=== PATIENT | male | born 1950 | race Caucasian/White ===

== ENCOUNTER 2016-09-11 14:05 | Inpatient (IN) | payer OTHER, MEDICARE ==
[~2016-09-11] VITALS: Ht 160 cm; Wt 85.9 kg
[~2016-09-11 14:05] MED LIST: METFORMIN PO; PENICILLIN PO
[2016-09-11] MEDS ORDERED: CLON-379 PO (16:34)
[2016-09-11] MEDS ORDERED: FELO10TA PO (16:35)
[2016-09-11] MEDS ORDERED: METF850T PO (16:35)
[2016-09-11] MEDS ORDERED: LOSA50TA6 PO (16:36)
[2016-09-11] MEDS ORDERED: ASPI-664 PO (16:36)
[2016-09-11] MEDS ORDERED: ATOR20TA38 PO (16:37)
[2016-09-11] MEDS ORDERED: FOLI-49 PO (16:37)
--- NOTE | 2016-09-11 16:40 | RADRPT ---
PROCEDURE: CT Brain without contrast. CLINICAL INDICATION: Headache. TECHNIQUE: A CT of the brain was performed on a multi-slice CT scanner utilizing axial sections fr om the skull base through the vertex without contrast. Coronal and sagittal reconstructed images wer e provided. One or more of the following does reduction techniques were used: Automated exposure c ontrol; adjustment of the mA and/or kV according to patient size; use of the aorta of reconstruction technique. Images were reviewed on a high-resolution PACS workstation. Exam DLP equals 634.23 mGy- cm. The CTDI equals 38.54 mGy COMPARISON: CT brain 06/14/2013 FINDINGS: Mild diffuse cerebral and cerebellar atrophy is present. There is a new 4.0 x 2.9 x 2.6 cm area of d ecreased attenuation in the right occipital lobe most consistent with subacute infarct. There is no definite mass effect. There are mild deep white matter patchy hypodensities which are nonspecific, but typically seen in small vessel chronic ischemic disease. there is a coarse calcification arisin g from the inner table of the left frontal bone, stable compared to prior study. A small left lacun ar infarct is unchanged. The density of the brain is otherwise normal and the guerra/white matter dif ferentiation is well preserved. The osseous structures and visualized paranasal sinuses are unremar kable. Vascular calcifications are identified. IMPRESSION: 1. New 4.0 cm area of decreased attenuation in the right posterior occipital lobe without definitiv e mass effect most consistent with subacute or chronic infarct. Recommend further evaluation with M RI of the brain as clinically indicated, particularly if this is an unexpected finding. 2. Otherwise stable CT appearance of the brain compared to 06/14/2013 without evidence of acute int racranial pathology. There is stable mild atrophy in deep white matter microangiopathic ischemic ch anges. 3. Chronic left lacunar infarct is stable. 4. 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 RPTAT: KK .Lazaro Zayas MD, MD Date Time Electronically viewed and signed by .Lazaro Zayas MD, MD on 09/11/2016 16:40 .B/
[2016-09-11] MEDS ORDERED: SOD CHLORIDE 0.9% 500 ML IV STA (16:53)
[2016-09-11] MEDS ORDERED: ASPIRIN 81 MG TAB PO ONE (17:00)
[2016-09-11 17:12] LABS: ADD SCAN DIFF NO
[2016-09-11 17:15] LABS: ABNORMAL IP MESSAGE 1; BASOPHIL # 0.1 10^3/ul (0.0-0.1); BASOPHILS % 1.3 % (0.0-2.0); EOSINOPHILS # 0.3 10^3/ul (0.0-0.5); EOSINOPHILS % 3.7 % (0.0-7.0); HEMATOCRIT 27.5 % (42.0-52.0); HEMOGLOBIN 7.7 g/dl (14.0-18.0); LYMPHOCYTES # 1.9 10^3/ul (0.8-2.9); MEAN CORPUSCULAR HEMOGLOBIN 19.5 pg (29.0-33.0); MEAN CORPUSCULAR VOLUME 69.6 fl (82.0-101.0); MEAN PLATELET VOLUME 10.2 fl (7.4-10.4); MONOCYTE # 0.6 10^3/ul (0.3-0.9); MONOCYTES % 8.6 % (0.0-11.0); NEUTROPHIL # 4.2 10^3/ul (1.6-7.5); NEUTROPHILS % 59.1 % (39.0-77.0); PLATELET COUNT 343 10^3/UL (140-415); RED BLOOD COUNT 3.95 10^6/ul (4.70-6.10); RED CELL DISTRIBUTION WIDTH 24.3 % (11.5-14.5); WHITE BLOOD COUNT 7.1 10^3/ul (4.8-10.8)
--- NOTE | 2016-09-11 17:22 | RADRPT ---
PROCEDURE: XR Chest. CLINICAL INDICATION: Chest and abdomen pain. TECHNIQUE: Single frontal view. COMPARISON: 06/14/2013. FINDINGS: There is mild atelectasis at the right lung base. The lungs are otherwise clear. The heart size is normal. There is no pleural effusion. There is no pneumothorax. IMPRESSION: 1. Mild right basilar atelectasis. 2. Otherwise normal chest x-ray. RPTAT: QQ .Neil Mcbride MD, MD Date Time Electronically viewed and signed by .Neil Mcbride MD, on 09/11/2016 17:22 .R/
[2016-09-11 17:26] VITALS: TEMP 98.1
[2016-09-11 17:39] LABS: CHLORIDE 109 mmol/L (97-110)
[2016-09-11 17:40] LABS: SODIUM 142 mmol/L (135-144)
[2016-09-11 17:42] LABS: ALANINE AMINOTRANSFERASE 18 IU/L (13-69); ALBUMIN/GLOBULIN RATIO 1.33; ALKALINE PHOSPHATASE 71 IU/L (42-121); ASPARTATE AMINO TRANSFERASE 38 IU/L (15-46); BILIRUBIN,INDIRECT 0.2 mg/dl (0-1.1); BILIRUBIN,TOTAL 0.2 mg/dl (0.2-1.3); BLOOD UREA NITROGEN 17 mg/dl (7-20); CARBON DIOXIDE 20 mmol/L (21-31); CREATININE 0.79 mg/dl (0.61-1.24); GLUCOSE 114 mg/dl (70-220)
[2016-09-11 17:43] LABS: CALCIUM 9.2 mg/dl (8.4-10.2)
--- NOTE | 2016-09-11 17:43 | ERA ---
ER Documentation Chief Complaint Date/Time DATE: 09/11/16 TIME: 17:35 Chief Complaint DIZZINESS AND MORE CONFUSED, NOT SEEING WELL. HX OF ANEMIA, NO TRAUMA HPI 58-year-old man brought in by family members for complaints of left visual field deficit 2 weeks. He has had difficulty seeing his food placed in front of him and has had generalized weakness and mild confusion 2 weeks. He states prior to 2 weeks ago his vision was almost perfect although about 2 weeks ago during the day he had sudden onset of visual loss. Patient denies headache, no fevers or chills, no chest pain or shortness of breath, no weakness in his arms or legs, no gait ataxia. Patient states with onset of symptoms he was seen and evaluated at another emergency department for complaints of generalized weakness and he was found to be anemic so he was given PRBC IV transfusion and discharge. ROS All systems reviewed and are negative except as per history of present illness. Medications Home Meds Reported Medications Folic Acid* (Folic Acid*) 1 Mg Tablet, 1 MG PO DAILY, TAB 09/11/16 Atorvastatin Calcium* (Atorvastatin Calcium*) 20 Mg Tablet, 20 MG PO QHS, #30 TAB 09/11/16 Losartan Potassium* (Losartan Potassium*) 50 Mg Tablet, 50 MG PO DAILY, TAB 09/11/16 Aspirin* (Aspirin* EC) 81 Mg Tablet.dr, 81 MG PO DAILY, TAB 09/11/16 Metformin Hcl* (Metformin Hcl*) 850 Mg Tablet, 850 MG PO TID, #90 TAB 09/11/16 Felodipine* (Felodipine*) 10 Mg Tab.sr.24h, 10 MG PO DAILY, TAB.SA 09/11/16 Clonidine Hcl* (Clonidine Hcl*) 0.1 Mg Tab, 0.1 MG PO QHS, TAB 09/11/16 Discontinued Reported Medications [Penicillin] No Conflict Check, [id number] U PO DAILY, 0 Refills 06/14/13 [Metformin] No Conflict Check, 850 MG PO BID, 0 Refills 06/14/13 Allergies Allergies: Coded Allergies: No Known Allergy (Unverified , 09/11/16) PMhx/Soc Hypertension and diabetes mellitus, anemia History of Surgery: No Anesthesia Reaction: No Hx Neurological Disorder: Yes (Stroke) Hx Respiratory Disorders: No Hx Cardiac Disorders: No Hx Psychiatric Problems: No Hx Miscellaneous Medical Probl: No Hx Alcohol Use: No Hx Substance Use: No Hx Tobacco Use: No Smoking Status: Former smoker FmHx Family History: No diabetes Physical Exam Vitals Vital Signs Date Time Temp Pulse Resp B/P Pulse Ox O2 Delivery O2 Flow Rate FiO2 09/11/16 17:47 60 23 179/79 100 09/11/16 17:26 98.1 58 23 177/70 100 Room Air 09/11/16 16:38 98.1 58 23 177/70 100 Room Air 09/11/16 14:30 98.6 70 21 202/81 100 Physical Exam GENERAL: Well-developed, well-nourished, well-hydrated, in no apparent distress , looks nontoxic in appearance HEENT: Moist mucous membranes, pink conjunctiva, no cervical spine tenderness or step-off deformities, no goiter, no jaundice or icterus, extraocular movements intact without pain. No submandibular induration, and no pharyngeal erythema NEURO: Visual acuity was tested and OS/OD less than 20/200, no pronator drift, alert and oriented 3, cranial nerves II through XII intact bilaterally, pupils equal round reactive to light, no focal deficits or facial asymmetry, sensation intact distally Strength 5/5 in upper and lower extremities bilaterally CARDIAC: Regular rate and rhythm, no murmurs rubs or gallops LUNGS: Clear bilaterally no wheezing crackles or stridor ABDOMEN: Soft nontender, no guarding, no rigidity, no rebound, no psoas sign no obturator sign. Normoactive bowel sounds SKIN: Warm and dry to touch, no abrasions, contusions, or hematomas, no lacerations, no ecchymosis, no target lesions, and without ulcers EXTREMITIES: No clubbing cyanosis or edema, calves are bilaterally symmetrical, no Homans sign, no popliteal cord sign. Distal pulses equal and bilateral PSYCH: Normal affect without agitation or irritability Result Diagram: 09/11/16 1705 09/11/16 1705 Results 24 hrs Laboratory Tests Test 09/11/16 17:05 Alanine Aminotransferase (ALT/SGPT) 18IU/L Albumin 4.0g/dl Albumin/Globulin Ratio 1.33 Alkaline Phosphatase 71IU/L Anion Gap 19 Aspartate Amino Transf (AST/SGOT) 38IU/L Basophils # 0.110^3/ul Basophils % 1.3% Blood Urea Nitrogen 17mg/dl Calcium Level 9.2mg/dl Carbon Dioxide Level 20mmol/L Chloride Level 109mmol/L Creatinine 0.79mg/dl Differential Comment AUTO w/SCAN Direct Bilirubin 0.00mg/dl Eosinophils # 0.310^3/ul Eosinophils % 3.7% Globulin 3.00g/dl Glucose Level 114mg/dl Hematocrit 27.5% Hemoglobin 7.7g/dl Indirect Bilirubin 0.2mg/dl Lipase 166U/L Lymphocytes # 1.910^3/ul Lymphocytes % 27.0% Mean Corpuscular Hemoglobin 19.5pg Mean Corpuscular Hemoglobin Concent 28.0g/dl Mean Corpuscular Volume 69.6fl Mean Platelet Volume 10.2fl Monocytes # 0.610^3/ul Monocytes % 8.6% Neutrophils # 4.210^3/ul Neutrophils % 59.1% Nucleated Red Blood Cells # 0.010^3/ul Nucleated Red Blood Cells % 0.0/100WBC Platelet Count 72895^3/UL Platelet Estimate PLT APPEAR ADEQUATE Potassium Level 5.6mmol/L Red Blood Count 3.9510^6/ul Red Cell Distribution Width 24.3% Sodium Level 142mmol/L Total Bilirubin 0.2mg/dl Total Protein 7.0g/dl Troponin I < 0.012ng/ml White Blood Count 7.110^3/ul Current Medications Medications (Trade) Dose Ordered Sig/Bianca Route PRN Reason Start Time Stop Time Status Last Admin Dose Admin Sodium Chloride (NS) 500 ml @ 500 mls/hr Q1H STAT IV 09/11/16 16:53 09/11/16 17:52 DC 09/11/16 17:37 Aspirin (Aspirin) 162 mg ONCE ONCE PO 09/11/16 17:00 09/11/16 17:01 DC 09/11/16 17:37 Procedures/MDM Blood sugar was checked and was normal. CT scan of the brain was performed revealing a 4 cm subacute infarct in the right occipital lobe consistent with his new visual field deficit. Please refer to radiologist dictation for full report. I administered 1 L normal saline intravenously and aspirin 162 mg p.o. for neuro protective measures. Chest X-ray 1V Interpreted by me: Soft Tissue: No acute abnormalities Bones: No acute abnormalities Mediastinum/Cardiac Silhouette/Lungs: No acute abnormalities EKG performed, read by me revealed a normal sinus rhythm at 60 bpm, normal axis , narrow QRS complex, no concerning ST elevations or depressions noted. CBC revealed anemia with a hemoglobin of 7.7, electrolytes remarkable for dehydration and mild hyperkalemia, liver function tests normal, troponin was negative. Patient will be admitted to telemetry setting for continued medical management and neurology consultation. 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
[2016-09-11 17:56] LABS: PLATELET ESTIMATE PLT APPEAR ADEQUATE
[2016-09-11 18:20] LABS: TROPONIN-I < 0.012 ng/ml (0.00-0.12)
[2016-09-11] MEDS ORDERED: BISACODYL (EC) 5 MG TAB PO PRN (18:30)
[2016-09-11] MEDS ORDERED: MAGNESIUM HYDROXIDE 30ML CUP PO PRN (18:30)
[2016-09-11] MEDS ORDERED: NACL 0.9% 3 ML SYG IV SCH (18:30)
[2016-09-11] MEDS ORDERED: LORAZEPAM 2 MG INJ IV PRN (18:30)
[2016-09-11] MEDS ORDERED: ONDANSETRON 4 MG INJ IV PRN (18:30)
[2016-09-11] MEDS ORDERED: NA POLYST SULFON 15 GM/60 ML BTL PO ONE (19:00)
[2016-09-11 19:17] LABS: IRON 20 ug/dl (35-150)
--- NOTE | 2016-09-11 19:19 | RADRPT ---
PROCEDURE: Carotid ultrasound CLINICAL INDICATION: Stroke, carotid bruits TECHNIQUE: Jeffrey scale, color doppler, spectral doppler ultrasound of the bilateral carotid and salima tebral arteries. This study indirectly references the measurement of the distal ICA diameter as the denominator for s tenosis measurement. Validated velocity measurements with angiographic measurements, velocity criter ia are extrapolated from diameter data as defined by: *Cartoid artery stenosis: jeffrey-scale and Doppl er US diagnosis. Society of Radiologists in Ultrasound Consensus Conference. Radiology 2003; 229: 34 0-346. SRU Consensus Conference Criteria for the Diagnosis of Carotid Artery Stenosis* Degree of Stenosis, % ICA PSV, cm/sec Plaque Estimate, % ICA/CCA PSV Ratio Normal <125 None <2.0 <50 <125 <50 <2.0 50 69 125-230 >50 2.0-4.0 >70 but less than near occlusion >230 >50 <4.0 Near occlusion High, low, or undetectable Visible Variable Total occlusion Undetectable Visible, no detectable lumen Not applicable COMPARISON: No prior studies are available for comparison. FINDINGS: Location Right CCA60 cm/sec Prox ICA 54 cm/sec Mid ICA69 cm/sec Dist ICA79 cm/sec ECA83 cm/sec ICA/CCA1.3 Left CCA63 cm/sec Prox ICA 47 cm/sec Mid ICA58 cm/sec Dist ICA82 cm/sec ECA82 cm/sec ICA/CCA1.3 Plaque burden: A small amount of plaque is present within the visualized portions of both internal c arotid arteries however there is no evidence of flow acceleration to suggest a hemodynamically signi ficant stenosis. Antegrade flow is seen within the vertebral arteries bilaterally. IMPRESSION: No evidence of a hemodynamically significant carotid stenosis. RPTAT: AADD .Florentino Sarabia MD, Date Time Electronically viewed and signed by .Florentino Sarabia MD, on 09/11/2016 19:19 .B/
--- NOTE | 2016-09-11 19:23 | HP ---
DATE OF ADMISSION: 09/11/2016 TIME OF EVALUATION: 1800. REASON FOR ADMISSION: Brought in by family because of multiple complaints including some blurred vision, dizziness, and confusion. CONSULTATIONS: Dr. John Perea, Neurology. HISTORY OF PRESENT ILLNESS: This is a 66-year-old male with past medical history of TIA, type 2 diabetes, neurocysticercosis, hypertension, dyslipidemia, and seizure disorder in the remote past who came to the emergency room, brought in by family because of multiple complaints. The main complaint for blurred vision in bilateral eyes, dizziness, and reported confusion that has been going on for the past 2 weeks. The patient verbalized that his blurred vision started at once approximately 2 weeks ago. The patient denied any double vision. The patient denied any prior similar episodes. He denied any headaches, fevers, or chills. He denied any chest pain, dyspnea, nausea, vomiting, abdominal pain, diarrhea, or hematochezia. The patient verbalized that he was recently transfused with PRBC at a different emergency department because of anemia. The patient denied any obvious bleeding including any hematuria, hematochezia, hematemesis, or melena. The patient verbalized that he has been compliant with all his medications. In the emergency room, the patient was noticed to have microcytic hypochromic anemia with hemoglobin and hematocrit of 7.7 and 27.5 respectively. The patient underwent a brain CT scan that showed a new 4 cm area of decreased attenuation in the right posterior occipital lobe without definitive mass effect , most consistent with subacute or chronic infarct. The CT also revealed chronic left lacunar infarct. The patient was treated with a single dose of aspirin and a single dose of IV normal saline in the emergency room. The patient had an initial blood pressure of 202/81 in the emergency room. PAST MEDICAL HISTORY: Essential hypertension, type 2 diabetes, neurocysticercosis, dyslipidemia, TIA, seizure disorder in the remote past. PAST SURGICAL HISTORY: None. HOME MEDICATIONS: 1. Folic acid 1 mg p.o. daily. 2. Atorvastatin 20 mg p.o. at bedtime. 3. Losartan 50 mg p.o. daily. 4. Aspirin 81 mg p.o. daily. 5. Metformin 850 mg p.o. t.i.d. 6. Felodipine 10 mg p.o. daily. 7. Clonidine 0.1 mg p.o. at bedtime. ALLERGIES: NO KNOWN DRUG ALLERGIES. SOCIAL HISTORY: The patient lives at home with his family. Currently not working. Remote history of alcohol and tobacco use. He quit tobacco and alcohol approximately 17 years ago. REVIEW OF SYSTEMS: A 12-point review of systems were made and the review of systems are negative other than what is mentioned in history of present illness. PHYSICAL EXAMINATION: VITAL SIGNS: Temperature 98.1, pulse rate 60, respiratory rate 23, blood pressure 179/79, oxygen saturation 100% on room air. GENERAL: This is a slightly obese male sitting in bed in no apparent distress. HEENT: Head normocephalic and atraumatic. Eyes: Anicteric sclerae. Conjunctivae clear. ENT: Nasal septum is midline. Oral mucosa is dry. NECK: Supple. No JVD noticed. RESPIRATORY: Bilaterally diminished breath sounds. No use of adventitious muscles of respiration. CARDIAC: Regular rate and rhythm with a grade II/ systolic ejection murmur heard at the left sternal border. GASTROINTESTINAL: Abdomen soft, nontender, and nondistended. Bowel sounds positive in all 4 quadrants. GENITOURINARY: Deferred. EXTREMITIES: No cyanosis, no clubbing. Bilateral 1+ ankle edema. Peripheral pulses palpable. NEUROLOGIC: The patient is awake and alert. Oriented x2. Not sure about the date. Moves all 4 extremities. Equal strength in all 4 extremities. Tongue midline. LABORATORY AND DIAGNOSTIC DATA: 12-lead EKG: Normal sinus rhythm. Brain CT scan: New 4 cm area of decreased attenuation in the right posterior occipital lobe without definite mass effect, most consistent with subacute or chronic infarct. There is stable mild atrophy in deep white matter along with microangiopathic ischemic changes. Chronic left lacunar infarct is stable. 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 Chest x-ray: Mild right basilar atelectasis. Otherwise, normal chest x-ray. CBC: WBC 7.1, hemoglobin 7.7, hematocrit 27.5, platelet count 343. Sodium 142 , potassium 5.6, chloride 109, carbon dioxide 20, anion gap 19, BUN 17, creatinine 0.79, glucose 114. Calcium 9.2. Total bilirubin 0.2, indirect bilirubin 0.2, AST 38, ALT 18, alkaline phosphatase 71. Troponin less than 0.01. Total protein 7.0. Albumin 4.0. Lipase 166. IMPRESSION: This is a 66-year-old male with multiple comorbidities who came to the emergency room with chief complaints of blurred vision, dizziness, and confusion who was found to have evidence of a subacute/chronic infarct in the right posterior occipital lobe, who will be admitted here for further treatment and evaluation. ASSESSMENT AND PLAN: 1. Acute encephalopathy. Etiology unclear. Brain CT scan showing a right posterior occipital lobe decreased attenuation consistent with subacute or chronic infarct. The patient will be ruled out for any underlying acute infarct. A brain MRI will be obtained. The patient will be started on aspirin. However, caution will be used with aspirin because of the patient's low H and H. A neurology consult will be obtained. A speech therapy and physical therapy evaluation will be obtained. Carotid Doppler study and a 2D echocardiogram will be obtained. 2. Accelerated hypertension. The patient will be started on p.r.n. antihypertensives for any systolic blood pressure readings greater than 220 mmHg. Permissive hypertension will be allowed at this time because of suspected acute stroke. 3. Type 2 diabetes mellitus. The patient will be started on sliding scale insulin along with Lantus insulin and premeal insulin. Hemoglobin A1c will be obtained to evaluate the blood glucose control over the past few weeks. 4. Dyslipidemia. The patient's statins will be resumed. A fasting lipid panel will be obtained. 5. Microcytic hypochromic anemia. Etiology unclear. The patient denied any obvious sources of bleeding. Stool for occult blood will be obtained. An iron panel will be obtained. The patient will be transfused as needed. 6. Hyperkalemia. Etiology unclear. The patient will be given a single dose of potassium exchange resin. The patient will be monitored closely on telemetry floor. Plan. The patient will be admitted to inpatient telemetry floor. The patient will be made a FULL CODE. Activities will be with assist. The patient will be started on DVT prophylaxis and gastrointestinal prophylaxis. The patient will be started on a carbohydrate controlled diet. The rest of the patient's management will be based on the clinical course, the results of diagnostic studies, and inputs from consultants. Based on the patient's clinical presentation, he most probably requires at least 2 midnights' stay for further management and evaluation of his clinical presentation. The case and management of this patient was fully discussed with Dr. Garcia. Approximately 50 minutes was spent on the history and physical of this patient. SUSAN GARCIA MD AM/ABDOULAYE Conf#: [id number] DID#: [id number] MTDD
[2016-09-11 19:28] LABS: TOTAL IRON BINDING CAPACITY 495 ug/dl (241-421)
[2016-09-11 19:30] LABS: ANION GAP 18 (8-16); POTASSIUM 4.6 mmol/L (3.5-5.1)
[2016-09-11] MEDS ORDERED: GLUCAGON 1 MG INJ IM PRN (19:30)
[2016-09-11] MEDS ORDERED: GLUCOSE GEL 15 GRAM TUBE PO PRN ×2 (19:30)
[2016-09-11] MEDS ORDERED: DEXTROSE 50% 50 ML SYRINGE IV PRN ×2 (19:30)
[2016-09-11] MEDS ORDERED: GLUCOSE GEL 15 GRAM TUBE BUCCAL PRN (19:30)
[2016-09-11 19:48] LABS: CREATINE KINASE 49 IU/L (23-200); TROPONIN-I < 0.012 ng/ml (0.00-0.12)
[2016-09-11] MEDS: INSULIN ASPART [NOVOLOG] 3 ML PEN SC SCH (21:00)
[2016-09-11 21:31] VITALS: Ht 160 cm; Wt 85.9 kg
[2016-09-11 21:55] VITALS: PULSE 60
[2016-09-11 22:02] VITALS: BP 160/74; RESP 18
[2016-09-11] MEDS: ATORVASTATIN 20 MG TAB PO SCH (22:45)
[2016-09-11] MEDS: FAMOTIDINE 20 MG TAB PO SCH (22:45)
[2016-09-11] MEDS: INSULIN GLARGINE [LANtus] 3 ML PEN SC SCH (23:49)
[2016-09-12] VITALS (12 sets, daily range): BP systolic 147–198; BP diastolic 67–87; PULSE 61–93; RESP 16–18
[2016-09-12] MEDS: ACCUCHECK AT 2AM (Patients on SS coverage) XX SCH (02:00)
[2016-09-12] MEDS ORDERED: hydrALAzine 20 MG INJ IV ONE (03:00)
[2016-09-12] MEDS ORDERED: LORAZEPAM 2 MG INJ IV PRN (03:00)
--- NOTE | 2016-09-12 03:19 | EN ---
Date/Time of Note Date/Time of Note DATE: 09/12/16 TIME: 03:05 Event Note Medicine Medicine Event Note Update on Condition: I was asked to order restraints for patient as he had pulled out his IV. Before the restraints could be placed, patient was complaining of having trouble breathing. He was sitting at the side of the bed, his in the room. He pointed to his epigastrium as being where the pain is. He denies chest pain, nausea, back pain, radiation of pain. He has had swelling in his legs before. No cough or wheeze. Patient denies cardiac history or heartburn. He is a diabetic and has a history of anxiety.. He admits to a sour taste in his mouth. No history of heart murmur. Patient is alert, responsive and cooperative. Hs skin is oily/moist. Not cool. No beads of sweat. Lungs are clear. Heart is regular with a II/ JAYSON over entire precordium. Bilateral +1 pitting edema to mid-leg on right and above that on left leg, but not to upper 1/3. Abdomen is soft, non-tender, non-distended, no HSM. EKG: NSR at 79 BPM. No acute changes. LABS: Trop I, BNP, D-Dimer STAT. CONSULT: Cardio RAD: Echocardiogram Approximately 15 minutes later, as lab was coming up to draw patient, he appeared more in distress. His BP was approximately 220/80. Hydralazine 10 mg IV , one time dose, and Ativan 0.5 mg IV were ordered. EKG done shortly after this. Chart reviewed after above. Prior to admit, while in ER, there was no cardiac murmur documented. Exam by hospitalist revealed a I/ JAYSON at LSB and +1 pedal edema at ankles. PREETHI GARDUNO MD Sep 12, 2016 03:18
[2016-09-12 03:31] LABS: D-DIMER 544.29 ng/ml (<460)
[2016-09-12 03:33] LABS: B-TYPE NATRIURETIC PEPTIDE 480 PG/ML (0-125)
[2016-09-12 03:58] LABS: TROPONIN-I < 0.012 ng/ml (0.00-0.12)
[2016-09-12] MEDS ORDERED: FUROSEMIDE (10 MG/ML) IV SYG IV STA (04:29)
[2016-09-12] MEDS ORDERED: FUROSEMIDE 20 MG INJ IV ONE (05:00)
[2016-09-12 07:06] LABS: ADD SCAN DIFF NO
[2016-09-12 07:16] LABS: ABNORMAL IP MESSAGE 1; BASOPHIL # 0.1 10^3/ul (0.0-0.1); BASOPHILS % 1.2 % (0.0-2.0); EOSINOPHILS # 0.1 10^3/ul (0.0-0.5); EOSINOPHILS % 1.9 % (0.0-7.0); HEMOGLOBIN 7.4 g/dl (14.0-18.0); LYMPHOCYTES # 1.4 10^3/ul (0.8-2.9); LYMPHOCYTES % 18.7 % (15.0-51.0); MEAN CORPUSCULAR HEMOGLOBIN 19.8 pg (29.0-33.0); MEAN CORPUSCULAR HGB CONC 28.5 g/dl (32.0-37.0); MEAN CORPUSCULAR VOLUME 69.5 fl (82.0-101.0); MEAN PLATELET VOLUME 9.9 fl (7.4-10.4); MONOCYTE # 0.4 10^3/ul (0.3-0.9); MONOCYTES % 5.3 % (0.0-11.0); NEUTROPHIL # 5.2 10^3/ul (1.6-7.5); NEUTROPHILS % 72.5 % (39.0-77.0); PLATELET COUNT 314 10^3/UL (140-415); RED BLOOD COUNT 3.74 10^6/ul (4.70-6.10); WHITE BLOOD COUNT 7.2 10^3/ul (4.8-10.8)
[2016-09-12 07:21] LABS: POTASSIUM 3.9 mmol/L (3.5-5.1)
[2016-09-12 07:23] LABS: ALBUMIN/GLOBULIN RATIO 1.42; CREATININE 0.77 mg/dl (0.61-1.24); TOTAL PROTEIN 6.8 g/dl (6.1-8.1)
[2016-09-12 07:24] LABS: CALCIUM 9.4 mg/dl (8.4-10.2)
[2016-09-12 07:29] LABS: INR 0.99; PROTIME 13.1 Sec (12.2-14.2)
[2016-09-12] MEDS: FAMOTIDINE 20 MG TAB PO SCH (08:32)
[2016-09-12] MEDS: FOLIC ACID 1 MG TAB PO SCH (08:32)
[2016-09-12] MEDS: hydrALAzine 20 MG INJ IV PRN ×2 (08:33→17:29)
[2016-09-12] MEDS: INSULIN ASPART [NOVOLOG] 3 ML PEN SC SCH ×7 (08:37→21:00)
[2016-09-12] MEDS ORDERED: ASPIRIN 81 MG TAB PO SCH (09:00)
[2016-09-12 09:05] LABS: BARBITURATES NEGATIVE (NEGATIVE); BENZODIAZEPINES NEGATIVE (NEGATIVE); CANNABINOIDS NEGATIVE (NEGATIVE); COCAINE NEGATIVE (NEGATIVE); OPIATES NEGATIVE (NEGATIVE)
[2016-09-12 09:08] LABS: CHOL/HDL RATIO 2.9 RATIO; MAGNESIUM 1.8 mg/dl (1.7-2.5)
[2016-09-12] MEDS ORDERED: SOD CHLORIDE 0.9% 250 ML IV* ONE (10:26)
[2016-09-12] MEDS ORDERED: FUROSEMIDE 40 MG INJ IV SCH (10:30)
[2016-09-12] MEDS ORDERED: FUROSEMIDE 20 MG INJ IV SCH (10:30)
[2016-09-12] MEDS: PANTOPRAZOLE 40 MG INJ IV SCH ×2 (12:16→17:29)
--- NOTE | 2016-09-12 12:27 | PN ---
Date/Time of Note Date/Time of Note DATE: 09/12/16 TIME: 12:25 Assessment/Plan VTE Prophylaxis VTE Prophylaxis Intervention: SCD's Lines/Catheters IV Catheter Type (from [facility]): [facility] Urinary Cath still in place: No Assessment/Plan Chief Complaint/Hosp Course 1. Acute encephalopathy. Etiology unclear. Brain CT scan showing a right posterior occipital lobe decreased attenuation consistent with subacute or chronic infarct. The patient will be ruled out for any underlying acute infarct. Pending brain MRI. Carotid Doppler study negative for any hemodynamically significant stenosis. Pending 2D echocardiogram. Status post evaluation by neurology. Aspirin on hold because of worsening anemia. 2. Accelerated hypertension. The patient will be started on a routine antihypertensives. The patient will be continued on p.r.n. antihypertensives for any systolic blood pressure readings greater than 180 mmHg. 3. Type 2 diabetes mellitus. Hemoglobin A1c 6.1. The patient will be continued on sliding scale insulin along with Lantus insulin and premeal insulin. 4. Dyslipidemia. Fasting lipid panel suboptimal. Continue statins. 5. Microcytic, hypochromic anemia. Etiology unclear. Iron panel showing iron deficiency. Will start the patient on iron supplements. Also reported rectal bleeding. Will start the patient on proton pump inhibitors. Will involve gastroenterology on the case per 6. Hyperkalemia. Resolved. 7. Fluids, electrolytes, and nutrition. Carbohydrate controlled, low- cholesterol diet. 8. DVT prophylaxis. Bilateral sequential compression devices. 9. Gastrointestinal prophylaxis. Proton pump inhibitors. 10. Plan. Transfuse 1 unit of PRBC. Hold aspirin. Await brain MRI. Obtain bilateral lower extremity venous Doppler study to evaluate for any underlying DVT. Case discussed with Dr. Beltran. Problems: Subjective 24 Hr Interval Summary Free Text/Dictation Transient episodes of confusion last night. Currently denies any blurred vision. Denies any dyspnea. Denies any chest pain. Exam/Review of Systems Vital Signs Vitals Vital Signs Date Time Temp Pulse Resp B/P Pulse Ox O2 Delivery O2 Flow Rate FiO2 09/12/16 12:10 65 09/12/16 11:56 98.0 17 187/82 99 09/11/16 17:26 Room Air Intake and Output 09/11/16 09/11/16 09/12/16 15:00 23:00 07:00 Intake Total 480 ml Output Total 1000 ml Balance -520 ml Exam GENERAL: This is a slightly obese male sitting in bed in no apparent distress. HEENT: Head normocephalic and atraumatic. Eyes: Anicteric sclerae. Conjunctivae clear. ENT: Nasal septum is midline. Oral mucosa is dry. NECK: Supple. No JVD noticed. RESPIRATORY: Bilaterally diminished breath sounds. No use of adventitious muscles of respiration. CARDIAC: Regular rate and rhythm with a grade II/ systolic ejection murmur heard at the left sternal border. GASTROINTESTINAL: Abdomen soft, nontender, and nondistended. Bowel sounds positive in all 4 quadrants. GENITOURINARY: Deferred. EXTREMITIES: No cyanosis, no clubbing. Bilateral 2+ ankle edema. Peripheral pulses palpable. NEUROLOGIC: The patient is awake and alert. Oriented x2. Not sure about the date. Moves all 4 extremities. Equal strength in all 4 extremities. Tongue midline. Results Result Diagram: 09/12/16 0656 09/12/16 0656 Results 24 hrs Laboratory Tests Test 09/11/16 17:05 09/11/16 18:35 09/11/16 20:21 09/11/16 23:43 Basophils # 0.1 Basophils % 1.3 Differential Comment AUTO w/SCAN Eosinophils # 0.3 Eosinophils % 3.7 Hematocrit 27.5 L Hemoglobin 7.7 L Lymphocytes # 1.9 Lymphocytes % 27.0 Mean Corpuscular Hemoglobin 19.5 L Mean Corpuscular Hemoglobin Concent 28.0 L Mean Corpuscular Volume 69.6 L Mean Platelet Volume 10.2 Monocytes # 0.6 Monocytes % 8.6 Neutrophils # 4.2 Neutrophils % 59.1 Nucleated Red Blood Cells # 0.0 Nucleated Red Blood Cells % 0.0 Platelet Count 343 Platelet Estimate PLT APPEAR ADEQUATE Red Blood Count 3.95 L Red Cell Distribution Width 24.3 H White Blood Count 7.1 Alanine Aminotransferase (ALT/SGPT) 18 Albumin 4.0 Albumin/Globulin Ratio 1.33 Alkaline Phosphatase 71 Anion Gap 18 H Aspartate Amino Transf (AST/SGOT) 38 Blood Urea Nitrogen 17 Calcium Level 9.2 Carbon Dioxide Level 20 L Chloride Level 109 Creatine Kinase 49 Creatine Kinase Index 2.0 Creatinine 0.79 Creatinine Kinase MB (Mass) 1.00 Direct Bilirubin 0.00 Ferritin 5.0 L Free Thyroxine 1.10 Globulin 3.00 Glucose Level 114 Hemoglobin A1c 6.1 H Indirect Bilirubin 0.2 Iron Level 20 L Lipase 166 Percent Iron Saturation 4 L Potassium Level 4.6 Sodium Level 142 Thyroid Stimulating Hormone (TSH) 1.170 Total Bilirubin 0.2 Total Iron Binding Capacity 495 H Total Protein 7.0 Troponin I < 0.012 Bedside Glucose 166 109 Test 09/12/16 02:40 09/12/16 02:45 09/12/16 06:56 09/12/16 08:00 Bedside Glucose 185 B-Type Natriuretic Peptide 480 H D-Dimer 544.29 H D-Dimer Comment Troponin I < 0.012 < 0.012 Activated Partial Thromboplast Time 25.0 Alanine Aminotransferase (ALT/SGPT) 24 Albumin 4.0 Albumin/Globulin Ratio 1.42 Alkaline Phosphatase 88 Anion Gap 17 H Aspartate Amino Transf (AST/SGOT) 19 Basophils # 0.1 Basophils % 1.2 Blood Urea Nitrogen 16 Calcium Level 9.4 Carbon Dioxide Level 23 Chloride Level 106 Cholesterol Level 113 Cholesterol/HDL Ratio 2.9 Creatinine 0.77 Direct Bilirubin 0.00 Eosinophils # 0.1 Eosinophils % 1.9 Globulin 2.80 Glucose Level 167 HDL Cholesterol 38 Hematocrit 26.0 L Hemoglobin 7.4 L INR International Normalized Ratio 0.99 Indirect Bilirubin 0.0 LDL Cholesterol, Calculated 36 Lymphocytes # 1.4 Lymphocytes % 18.7 Magnesium Level 1.8 Mean Corpuscular Hemoglobin 19.8 L Mean Corpuscular Hemoglobin Concent 28.5 L Mean Corpuscular Volume 69.5 L Mean Platelet Volume 9.9 Monocytes # 0.4 Monocytes % 5.3 Neutrophils # 5.2 Neutrophils % 72.5 Nucleated Red Blood Cells # 0.0 Nucleated Red Blood Cells % 0.0 Phosphorus Level 3.0 Platelet Count 314 Potassium Level 3.9 Prothrombin Time 13.1 Prothrombin Time Ratio 1.0 Red Blood Count 3.74 L Red Cell Distribution Width 24.0 H Sodium Level 142 Total Bilirubin 0.0 L Total Protein 6.8 Triglycerides Level 195 H White Blood Count 7.2 Urine Amphetamines Screen NEGATIVE Urine Barbiturates NEGATIVE Urine Benzodiazepines Screen NEGATIVE Urine Cannabinoids NEGATIVE Urine Cocaine Screen NEGATIVE Urine Opiates Screen NEGATIVE Test 09/12/16 08:08 Bedside Glucose 145 Medications Medications Current Medications Lorazepam (Ativan) 0.5 mg Q6H PRN IV ANXIETY Last administered on 09/12/16t 03: 17; Admin Dose 0.5 MG; Start 09/11/16 at 18:30 Ondansetron HCl (Zofran Inj) 4 mg Q6H PRN IV NAUSEA AND/OR VOMITING; Start 09/11 at 18:30 Aspirin (Aspirin) 81 mg DAILY PO Last administered on 09/12/16 08:32; Admin Dose 81 MG; Start 09/12/16 at 09:00; Status Future Hold Acetaminophen (Tylenol Tab) 650 mg Q6H PRN PO PAIN LEVEL 1-3 OR FEVER; Start at 18:30 Acetaminophen/ Hydrocodone Bitart ([place] (5/325)) 1 tab Q6H PRN PO PAIN LEVEL 4 -6; Start 09/11/16 at 18:30 Morphine Sulfate (morphine) 2 mg Q4H PRN IV PAIN LEVEL 7-10; Start 09/11/16 at 18:30 Magnesium Hydroxide (Milk Of Mag) 30 ml DAILY PRN PO CONSTIPATION; Start at 18:30 Bisacodyl (Dulcolax) 5 mg DAILY PRN PO CONSTIPATION; Start 09/11/16 at 18:30 Insulin Glargine (Lantus) 8 unit DAILY@20 SC Last administered on 09/11/16 23: 49; Admin Dose 8 UNIT; Start 09/11/16 at 20:00 Atorvastatin Calcium (Lipitor) 20 mg QHS PO Last administered on 09/11/16 22:45 ; Admin Dose 20 MG; Start 09/11/16 at 21:00 Folic Acid (Folic Acid) 1 mg DAILY PO Last administered on 09/12/16 08:32; Admin Dose 1 MG; Start 09/12/16 at 09:00 Hydralazine HCl (Apresoline) 10 mg Q6H PRN IV SBP>220 Last administered on 08:33; Admin Dose 10 MG; Start 09/11/16 at 19:00 Diagnostic Test (Pha) (Accucheck) 1 ea 02 XX ; Start 09/12/16 at 02:00 Miscellaneous Information 1 ea NOTE XX ; Start 09/11/16 at 19:30 Glucose (Glutose) 15 gm Q15M PRN PO DECREASED GLUCOSE; Start 09/11/16 at 19:30 Glucose (Glutose) 22.5 gm Q15M PRN PO DECREASED GLUCOSE; Start 09/11/16 at 19:30 Dextrose (D50w Syringe) 25 ml Q15M PRN IV DECREASED GLUCOSE; Start 09/11/16 at 19:30 Dextrose (D50w Syringe) 50 ml Q15M PRN IV DECREASED GLUCOSE; Start 09/11/16 at 19:30 Glucagon (Glucagen) 1 mg Q15M PRN IM DECREASED GLUCOSE; Start 09/11/16 at 19:30 Glucose (Glutose) 15 gm Q15M PRN BUCCAL DECREASED GLUCOSE; Start 09/11/16 at 19: 30 Furosemide (Lasix) 20 mg ONCE IV ; Start 09/12/16 at 10:30; Stop 09/13/16 at 10:29 Pantoprazole (Protonix Iv) 40 mg BID@06,18 IV Last administered on 09/12/16t 12: 16; Admin Dose 40 MG; Start 09/12/16 at 11:00 Felodipine (Plendil) 10 mg DAILY PO ; Start 09/13/16 at 09:00 Losartan Potassium (Cozaar) 50 mg DAILY PO ; Start 09/13/16 at 09:00 SUSAN BRAUN NP Sep 12, 2016 12:26
--- NOTE | 2016-09-12 14:11 | CONS ---
DATE OF ADMISSION: 09/11/2016 DATE OF CONSULTATION: 09/12/2016 TYPE OF CONSULTATION: Neurology. Thank you, Dr. Beltran and Keenan Livingston, nurse practitioner, for your kind referral for evaluation of possible stroke. HISTORY OF PRESENT ILLNESS: Patient is a 66-year-old gentleman who was brought by family secondary to blurred vision, dizziness, and confusion for the last 2 weeks. CAT scan of the head was done, showing area of decreased attenuation in the right posterior occipital lobe, mostly consistent with subacute versus chronic infarct. Patient also was found to be severely anemic 7.7 hemoglobin, 27.5 hematocrit. Last night, patient had episodes of elevated blood pressure, confusion, was pulling IV. Seems to be at baseline right now. Carotid ultrasound was done and did not show any acute abnormality. PAST MEDICAL HISTORY: Diabetes, hypertension, dyslipidemia, TIAs. Patient had history of neurocysticercosis, which was treated in [place] about 20 years ago. At that time, he had episode of seizure, and he was treated with anti-seizure medicines for 2 months. I saw patient 5 years ago in the hospital for transient episode of speech difficulties, which was likely related to TIA. At that time, he had a normal EEG. SOCIAL HISTORY: No alcohol, tobacco, drug use. History of heavy drinking in the past. ALLERGIES: NONE. HOME MEDICATIONS: Folate, atorvastatin 20, Losartan, aspirin 81, metformin, and clonidine. Aspirin was put on hold in the hospital. REVIEW OF SYSTEMS: All pertinent positives included in the above history of present illness. PHYSICAL EXAMINATION: VITAL SIGNS: Temperature 98.0, pulse 65, respirations 17, 187/82 blood pressure. GENERAL: Not in acute distress, sitting on edge of the bed. Normocephalic, atraumatic. NECK: No carotid bruits. No thyromegaly. LUNGS: Clear to auscultation bilaterally. CARDIAC: Normal cardiac rhythm. Systolic ejection murmur heard. ABDOMEN: Soft, nontender. EXTREMITIES: No cyanosis, clubbing, or edema. NEUROLOGIC: He is awake, alert, and oriented x2, fluent speech. Cranial nerve examination shows a visual field defect in the left upper quadrant, not as consistent in the left lower quadrant. Patient is not fully cooperative with confrontational testing. Pupils reactive from 2.5 to 1.5 mm on the left and from 3 to 2 mm on the right. Extraocular movements intact without nystagmus. Symmetrical face. Preserved facial strength and sensation. Tongue is in midline. Palate elevates symmetrically. Motor strength examination seems to be preserved in all extremities. Normal bulk, tone, and strength. Sensory examination grossly intact to light touch and pain. Deep tendon reflexes 2+ throughout. Downgoing toes bilaterally. Coordination preserved on finger-to- finger testing. No dysmetria or tremor. Gait limping secondary to knee arthritis, which is baseline for the patient according to the family present at bedside. IMPRESSION: Visual changes for 2 weeks, possible confusion, dizziness. Right occipital stroke on CAT scan, subacute versus chronic. MRI of the brain is pending. Severe anemia. Patient was transfused. Workup for GI source per primary MD. The patient's CBC and platelets within normal limits. Comprehensive metabolic panel essentially within normal limits. Cholesterol 113 , LDL 36. Normal PT, PTT. Negative drug screen. Continue current treatment with Lipitor. We will follow MRI report to see if it would show acute/subacute stroke. Continue current treatment. When patient' s etiology of anemia found and he is not anemic any more, consider restarting antiplatelet therapy. Keep patient euglycemic and normotensive. Thank you very much for this interesting consultation. Dictated By: IRINA HERMOSILLO/ABDOULAYE Conf#: [id number] DID#: [id number] MTDD
--- NOTE | 2016-09-12 14:27 | RADRPT ---
PROCEDURE: US Lower extremity Venous. CLINICAL INDICATION: Bilateral lower extremity swelling TECHNIQUE: Multiple sonographic images of the bilateral lower extremity deep venous system was obt ained utilizing grayscale, color-flow, compressive sonography and doppler imaging with augmentation. The images were reviewed on a PACS workstation. COMPARISON: None. FINDINGS: There is normal compressibility and flow within the bilateral common femoral, superficial femoral , posterior tibial and popliteal veins. RPTAT: AA IMPRESSION: No sonographic evidence for deep venous thrombosis. .Zay Mittal MD, MD Date Time Electronically viewed and signed by .Zay Mittal MD, on 09/12/2016 14:26 .S/
[2016-09-12] MEDS ORDERED: BARIUM SULF 2% 450 ML BTL (BERRY SMOOTHIE) PO ONE (15:00)
--- NOTE | 2016-09-12 15:06 | CONS ---
Date/Time of Note Date/Time of Note DATE: 09/12/16 TIME: 14:55 Assessment/Plan Assessment/Plan Additional Assessment/Plan Rectal Bleeding Evaluate GI bleed versus infectious process vs IBD Stool OB, if positive strongly recommend colonoscopy Monitor H&H every 8 hours, transfuse 2 units for hemoglobin less than 7.[address] abdomen C difficile stool test Colonoscopy if clinically indicated, pt advised of R/B/A to procedure and declined providing informed consent to proceed Hypertension Management per Primary Cardiology following Diabetes Management per Primary Acute encephalopathy Neurology following Further recommendations depend on clinical course Patient seen in collaboration with Dr. Kearney Consultation Date/Type/Reason Admit Date/Time Sep 11, 2016 at 17:05 Type of Consultation: GI Hx of Present Illness 66-year-old male with history of diabetes, hypertension, and high cholesterol presented with a myriad of symptoms to ED yesterday. During hospitalization patient reports hematochezia 2 episodes. Per son, patient has been having intermittent hematochezia episodes for the last week. He also reports that patient has had intermittent episodes of hematochezia for several months. At bedside patient denies abdominal pain, nausea, vomiting, and diarrhea. Per son , patient reports having colonoscopy a few months ago but unsure of results. Reports polyps but unsure if they were removed. Denies family history of colon cancer and inflammatory bowel disease. Presently son does not consent to colonoscopy. Will order CT abdomen and further evaluate. Social History Smoking Status: Former smoker Exam/Review of Systems Vital Signs Vitals Vital Signs Date Time Temp Pulse Resp B/P Pulse Ox O2 Delivery O2 Flow Rate FiO2 09/12/16 13:14 66 157/74 09/12/16 11:56 98.0 17 99 09/11/16 17:26 Room Air Intake and Output 09/11/16 09/11/16 09/12/16 15:00 23:00 07:00 Intake Total 480 ml Output Total 1000 ml Balance -520 ml Exam Constitutional: alert, oriented, well developed Psych: nl mood/affect Head: normocephalic Eyes: EOMI, nl conjunctiva, nl lids ENMT: nl external ears & nose, nl lips & teeth, nl nasal mucosa & septum Respiratory: clear to auscultation, normal air movement Cardiovascular: regular rate and rhythm Gastrointestinal: soft, nontender Musculoskeletal: nl extremities to inspection Neurological: STEAM PRESSER II-XII intact Results Result Diagram: 09/12/16 0656 09/12/16 0656 Results 24 hrs Laboratory Tests Test 09/11/16 17:05 09/11/16 18:35 09/11/16 20:21 09/11/16 23:43 Basophils # 0.1 Basophils % 1.3 Differential Comment AUTO w/SCAN Eosinophils # 0.3 Eosinophils % 3.7 Hematocrit 27.5 L Hemoglobin 7.7 L Lymphocytes # 1.9 Lymphocytes % 27.0 Mean Corpuscular Hemoglobin 19.5 L Mean Corpuscular Hemoglobin Concent 28.0 L Mean Corpuscular Volume 69.6 L Mean Platelet Volume 10.2 Monocytes # 0.6 Monocytes % 8.6 Neutrophils # 4.2 Neutrophils % 59.1 Nucleated Red Blood Cells # 0.0 Nucleated Red Blood Cells % 0.0 Platelet Count 343 Platelet Estimate PLT APPEAR ADEQUATE Red Blood Count 3.95 L Red Cell Distribution Width 24.3 H White Blood Count 7.1 Alanine Aminotransferase (ALT/SGPT) 18 Albumin 4.0 Albumin/Globulin Ratio 1.33 Alkaline Phosphatase 71 Anion Gap 18 H Aspartate Amino Transf (AST/SGOT) 38 Blood Urea Nitrogen 17 Calcium Level 9.2 Carbon Dioxide Level 20 L Chloride Level 109 Creatine Kinase 49 Creatine Kinase Index 2.0 Creatinine 0.79 Creatinine Kinase MB (Mass) 1.00 Direct Bilirubin 0.00 Ferritin 5.0 L Free Thyroxine 1.10 Globulin 3.00 Glucose Level 114 Hemoglobin A1c 6.1 H Indirect Bilirubin 0.2 Iron Level 20 L Lipase 166 Percent Iron Saturation 4 L Potassium Level 4.6 Sodium Level 142 Thyroid Stimulating Hormone (TSH) 1.170 Total Bilirubin 0.2 Total Iron Binding Capacity 495 H Total Protein 7.0 Troponin I < 0.012 Bedside Glucose 166 109 Test 09/12/16 02:40 09/12/16 02:45 09/12/16 06:56 09/12/16 08:00 Bedside Glucose 185 B-Type Natriuretic Peptide 480 H D-Dimer 544.29 H D-Dimer Comment Troponin I < 0.012 < 0.012 Activated Partial Thromboplast Time 25.0 Alanine Aminotransferase (ALT/SGPT) 24 Albumin 4.0 Albumin/Globulin Ratio 1.42 Alkaline Phosphatase 88 Anion Gap 17 H Aspartate Amino Transf (AST/SGOT) 19 Basophils # 0.1 Basophils % 1.2 Blood Urea Nitrogen 16 Calcium Level 9.4 Carbon Dioxide Level 23 Chloride Level 106 Cholesterol Level 113 Cholesterol/HDL Ratio 2.9 Creatinine 0.77 Direct Bilirubin 0.00 Eosinophils # 0.1 Eosinophils % 1.9 Globulin 2.80 Glucose Level 167 HDL Cholesterol 38 Hematocrit 26.0 L Hemoglobin 7.4 L INR International Normalized Ratio 0.99 Indirect Bilirubin 0.0 LDL Cholesterol, Calculated 36 Lymphocytes # 1.4 Lymphocytes % 18.7 Magnesium Level 1.8 Mean Corpuscular Hemoglobin 19.8 L Mean Corpuscular Hemoglobin Concent 28.5 L Mean Corpuscular Volume 69.5 L Mean Platelet Volume 9.9 Monocytes # 0.4 Monocytes % 5.3 Neutrophils # 5.2 Neutrophils % 72.5 Nucleated Red Blood Cells # 0.0 Nucleated Red Blood Cells % 0.0 Phosphorus Level 3.0 Platelet Count 314 Potassium Level 3.9 Prothrombin Time 13.1 Prothrombin Time Ratio 1.0 Red Blood Count 3.74 L Red Cell Distribution Width 24.0 H Sodium Level 142 Total Bilirubin 0.0 L Total Protein 6.8 Triglycerides Level 195 H White Blood Count 7.2 Urine Amphetamines Screen NEGATIVE Urine Barbiturates NEGATIVE Urine Benzodiazepines Screen NEGATIVE Urine Cannabinoids NEGATIVE Urine Cocaine Screen NEGATIVE Urine Opiates Screen NEGATIVE Test 09/12/16 08:08 09/12/16 12:12 Bedside Glucose 145 121 Medications Medications Current Medications Lorazepam (Ativan) 0.5 mg Q6H PRN IV ANXIETY Last administered on 09/12/16 03: 17; Admin Dose 0.5 MG; Start 09/11/16 at 18:30 Ondansetron HCl (Zofran Inj) 4 mg Q6H PRN IV NAUSEA AND/OR VOMITING; Start 09/11 at 18:30 Aspirin (Aspirin) 81 mg DAILY PO Last administered on 09/12/16 08:32; Admin Dose 81 MG; Start 09/12/16 at 09:00; Status Future Hold Acetaminophen (Tylenol Tab) 650 mg Q6H PRN PO PAIN LEVEL 1-3 OR FEVER; Start at 18:30 Acetaminophen/ Hydrocodone Bitart ([place] (5/325)) 1 tab Q6H PRN PO PAIN LEVEL 4 -6; Start 09/11/16 at 18:30 Morphine Sulfate (morphine) 2 mg Q4H PRN IV PAIN LEVEL 7-10; Start 09/11/16 at 18:30 Magnesium Hydroxide (Milk Of Mag) 30 ml DAILY PRN PO CONSTIPATION; Start at 18:30 Bisacodyl (Dulcolax) 5 mg DAILY PRN PO CONSTIPATION; Start 09/11/16 at 18:30 Insulin Glargine (Lantus) 8 unit DAILY@20 SC Last administered on 09/11/16 23: 49; Admin Dose 8 UNIT; Start 09/11/16 at 20:00 Atorvastatin Calcium (Lipitor) 20 mg QHS PO Last administered on 09/11/16 22:45 ; Admin Dose 20 MG; Start 09/11/16 at 21:00 Folic Acid (Folic Acid) 1 mg DAILY PO Last administered on 09/12/16 08:32; Admin Dose 1 MG; Start 09/12/16 at 09:00 Hydralazine HCl (Apresoline) 10 mg Q6H PRN IV SBP>180 Last administered on 08:33; Admin Dose 10 MG; Start 09/11/16 at 19:00 Diagnostic Test (Pha) (Accucheck) 1 ea 02 XX ; Start 09/12/16 at 02:00 Miscellaneous Information 1 ea NOTE XX ; Start 09/11/16 at 19:30 Glucose (Glutose) 15 gm Q15M PRN PO DECREASED GLUCOSE; Start 09/11/16 at 19:30 Glucose (Glutose) 22.5 gm Q15M PRN PO DECREASED GLUCOSE; Start 09/11/16 at 19:30 Dextrose (D50w Syringe) 25 ml Q15M PRN IV DECREASED GLUCOSE; Start 09/11/16 at 19:30 Dextrose (D50w Syringe) 50 ml Q15M PRN IV DECREASED GLUCOSE; Start 09/11/16 at 19:30 Glucagon (Glucagen) 1 mg Q15M PRN IM DECREASED GLUCOSE; Start 09/11/16 at 19:30 Glucose (Glutose) 15 gm Q15M PRN BUCCAL DECREASED GLUCOSE; Start 09/11/16 at 19: 30 Furosemide (Lasix) 20 mg ONCE IV ; Start 09/12/16 at 10:30; Stop 09/13/16 at 10:29 Pantoprazole (Protonix Iv) 40 mg BID@06,18 IV Last administered on 09/12/16 12: 16; Admin Dose 40 MG; Start 3/7/17 at 11:00 Felodipine (Plendil) 10 mg DAILY PO ; Start 09/13/16 at 09:00 Losartan Potassium (Cozaar) 50 mg DAILY PO ; Start 09/13/16 at 09:00 HORACIO SALMON Sep 12, 2016 15:05
[2016-09-12] MEDS ORDERED: BISACODYL (EC) 5 MG TAB PO ONE (16:00)
[2016-09-12] MEDS ORDERED: MAGNESIUM CITRATE 300 ML BTL PO ONE (17:30)
[2016-09-12] MEDS ORDERED: POLYETHYLENE GLYCOL 3350 119 GM POWDER PO ONE (18:30)
--- NOTE | 2016-09-12 18:33 | RADRPT ---
Echocardiogram Report Patient Name: EPI BOLANOS Gender: Male Date: 1950 Study Date: 12-Sep-2016 Marine Pipefitter: Nilton Morrow [facility] Location: [id number] Ref. Physician: PREETHI GARDUNO Quality: Good Procedures: Transthoracic echocardiogram with complete 2D, M-Mode, and doppler examination. Indications: Murmur. 2D/M Mode Doppler Measurement Value Normal Ranges Measurement Value Normal Ranges LVIDd 2D 5.6 3.5 - 5.6 cm TG Vmax 2.8 cm2 LVIDs 2D 2.5 2.1 - 4.1 cm TG VTI 2.8 cm2 LVPWd 2D 1.0 0.6 - 1.1 cm AV Mean Dangelo 1.5 m/sec IVSd 2D 1.0 0.6 - 1.1 cm AV Mean PG 9.9 mmHg AoR Diam 2D 2.7 2.0 - 3.7 cm AV Peak Dangelo 2.2 m/sec EDV 2D 155.0 cm3 AV Peak PG 19.6 mmHg ESV 2D 15.0 cm3 AV VTI 50.0 cm LA Dimen 2D 4.0 2.3 - 4.0 cm LVOT Mean Dangelo 1.1 m/sec LVOT Diam 2.2 cm LVOT Mean PG 5.9 mmHg LVOT Peak Dangelo 1.7 m/sec LVOT Peak PG 11.3 mmHg LVOT VTI 37.7 cm MV E Peak Dangelo 0.8 m/sec MV A Peak Dangelo 0.9 m/sec MV E/A 0.9 MV Decel Time 301 msec MV Decel Bonner 3 MV E/A 0.9 Findings Left Ventricle: Normal left ventricular systolic function. Normal left ventricular cavity size. Mild concentric left ventricular hypertrophy. Ejection fraction is visually estimated at 65 %. Tissue Doppler/Mitral Doppler indices are consistent with impaired relaxation (Stage I diastolic dysfunction). Right Ventricle: Normal right ventricular size. Normal right ventricular systolic function. Left Atrium: There is mild enlargement of left atrium. Right Atrium: The right atrium is normal in size. Mitral Valve: Normal appearance of the mitral valve. Mild mitral annular calcification. Trace mitral regurgitation. Aortic Valve: Mild aortic stenosis. Aortic valve Max velocity 2.21 m/sec. Max PG 19.00 mmHg. Mean PG 10.00 mmHg. Aortic valve area 2.80 cm2. Aortic cusps appear mildly calcified. Trace aortic valve regurgitation. Tricuspid Valve: Normal appearance of the tricuspid valve. Unable to obtain RVSP due to minimal presence of tricuspid regurgitation. Pulmonic Valve: Normal pulmonic valve appearance. Pericardium: Normal pericardium with no significant pericardial effusion. Aorta: Normal aortic root. IVC: Normal size and normal respiratory collapse consistent with normal right atrial pressure. Conclusions 1.Normal left ventricular systolic function. Normal left ventricular cavity size. Mild concentric left ventricular hypertrophy. Ejection fraction is visually estimated at 65 %. Tissue Doppler/Mitral Doppler indices are consistent with impaired relaxation (Stage I diastolic dysfunction). 2.Mild aortic stenosis. Aortic valve Max velocity 2.21 m/sec. Max PG 19.00 mmHg. Mean PG 10.00 mmHg. 3.Unable to obtain RVSP. RA pressure is 3 mmHg. Electronically Signed By: Ayad Cardenas 12-Sep-2016 18:32:44 -0800 Patient Name: EPI BOLANOS Study Date: 12-Sep-2016 [id number]
--- NOTE | 2016-09-12 20:25 | RADRPT ---
Vent Rate: 79 bpm RR Interval: 0 msec CO Interval: 192 msec QRS Duration: 94 msec QT Interval: 366 msec QTC Interval: 419 msec P-R-T [place]: 38 - 41 - 44 degrees Normal sinus rhythm Normal ECG Electronically Signed By: Ike Phelps [id number]
[2016-09-12] MEDS: ATORVASTATIN 20 MG TAB PO SCH (21:24)
--- NOTE | 2016-09-12 21:29 | RADRPT ---
PROCEDURE: CT abdomen and pelvis without IV contrast. CLINICAL INDICATION: Abdominal pain TECHNIQUE: CT scan of the abdomen and pelvis without contrast was performed on the [employer] volumetric [address] scanner. The patient was scanned without intravenous contrast. Coronal and sagittal refo rmatted images were obtained from the axial source images. The CTDI vol is 14.25 mGy and the DLP is 815.38 mGy-cm. COMPARISON: None. FINDINGS: CT abdomen: The lung bases are clear. The heart size is moderately enlarged and is without pericardial thickeni ng or effusion. The liver is normal in size and density and is without focal mass or intrahepatic biliary dilatation . The spleen is normal in size and homogeneous in density. The stomach is grossly unremarkable. T he pancreas as visualized is normal. The gallbladder and biliary tree are unremarkable and there is no evidence for common bile duct dilatation. The adrenal glands are symmetric and normal. The kid neys are small in size. A small left renal cyst is seen. No renal calculus or obstructive uropathy o r mass lesion is seen. The aorta is of normal in caliber. Atherosclerotic vascular disease is seen. There is no retroperito keron lymphadenopathy. The [place] hepatis region is clear. The large bowel is stool-filled. Scattere d diverticula are seen in the transverse colon, descending colon, and sigmoid colon without evidence of diverticulitis. Bowel wall thickening in the distal sigmoid colon is seen which is slightly irr egular in appearance. Suggestion of a subtle stranding in the adjacent mesentery of the sigmoid col on is noted. The small and remainder of the large bowel and mesentery, as visualized, are otherwise unremarkable. The normal appendix is identified. A small fat containing umbilical hernia is seen. CT pelvis: The pelvic organs are normal. The pelvic sidewalls and inguinal regions are clear. No pelvic mass, lymphadenopathy, or free fluid is seen. No acute inflammation is seen. The urinary bladder is wit hin normal limits. Diffuse osteopenia is seen. Degenerative spondylosis of the lumbar spine is seen. No osteolytic or osteoblastic lesion is detected. IMPRESSION: 1. Slightly irregular sigmoid wall thickening with the suggestion of subtle stranding in the adjace nt mesentery, the findings of which may represent colitis the possibility of an underlying neoplasm cannot be excluded. Correlation with colonoscopy may be of value as clinically warranted. 2. Sigmoid diverticulosis without evidence of diverticulitis. 3. Stool filled large bowel. 4. Moderate cardiomegaly. RPTAT: HPNM Nicolás Gracia, Physician Date Time Electronically viewed and signed by Nicolás Gracia, Physician on 09/12/2016 21:29 /
[2016-09-12] MEDS: INSULIN GLARGINE [LANtus] 3 ML PEN SC SCH (23:27)
[2016-09-13] VITALS (15 sets, daily range): BP systolic 136–186; BP diastolic 60–86; PULSE 52–80; RESP 16–24
[2016-09-13] MEDS: ACCUCHECK AT 2AM (Patients on SS coverage) XX SCH (02:00)
[2016-09-13] MEDS: hydrALAzine 20 MG INJ IV PRN (05:35)
[2016-09-13] MEDS: PANTOPRAZOLE 40 MG INJ IV SCH ×2 (05:35→18:30)
[2016-09-13] MEDS ORDERED: POLYETHYLENE GLYCOL 3350 119 GM POWDER PO ONE (06:00)
[2016-09-13 06:48] LABS: ADD SCAN DIFF NO
[2016-09-13 07:09] LABS: POTASSIUM 4.4 mmol/L (3.5-5.1)
[2016-09-13 07:12] LABS: CREATININE 0.8 mg/dl (0.61-1.24)
[2016-09-13 07:13] LABS: MAGNESIUM 2.6 mg/dl (1.7-2.5)
[2016-09-13 07:23] LABS: ABNORMAL IP MESSAGE 1; BASOPHIL # 0.1 10^3/ul (0.0-0.1); BASOPHILS % 1.5 % (0.0-2.0); EOSINOPHILS # 0.3 10^3/ul (0.0-0.5); EOSINOPHILS % 4.5 % (0.0-7.0); HEMATOCRIT 29.9 % (42.0-52.0); HEMOGLOBIN 8.6 g/dl (14.0-18.0); LYMPHOCYTES # 1.8 10^3/ul (0.8-2.9); LYMPHOCYTES % 24.2 % (15.0-51.0); MEAN CORPUSCULAR HGB CONC 28.8 g/dl (32.0-37.0); MEAN CORPUSCULAR VOLUME 69.4 fl (82.0-101.0); MEAN PLATELET VOLUME 10.4 fl (7.4-10.4); MONOCYTE # 0.5 10^3/ul (0.3-0.9); NEUTROPHIL # 4.7 10^3/ul (1.6-7.5); NEUTROPHILS % 62.5 % (39.0-77.0); PLATELET COUNT 365 10^3/UL (140-415); RED BLOOD COUNT 4.31 10^6/ul (4.70-6.10); RED CELL DISTRIBUTION WIDTH 24.4 % (11.5-14.5); WHITE BLOOD COUNT 7.6 10^3/ul (4.8-10.8)
[2016-09-13] MEDS ORDERED: BISACODYL (EC) 5 MG TAB PO ONE (08:00)
[2016-09-13] MEDS: INSULIN ASPART [NOVOLOG] 3 ML PEN SC SCH ×7 (08:00→21:00)
--- NOTE | 2016-09-13 08:21 | RADRPT ---
PROCEDURE: MRI Brain without contrast. CLINICAL INDICATION: Stroke TECHNIQUE: Multiplanar MRI of the brain without contrast was performed on a 3.0 T scanner with the following sequences obtained: T1-weighted, T2-weighted/FLAIR, diffusion weighted (with ADC map), GR E. COMPARISON: CT brain 09/11/2016 FINDINGS: There are patient motion related artifacts which somewhat limit evaluation. 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 No definite i ntracranial hemorrhage - blood degradation products are seen. No extra-axial fluid collection is se en. No significant mass effect or midline shift is identified. The ventricles and sulci are mild to moderately enlarged, compatible with volume loss. There is a chronic lacunar infarct in the left lentiform nucleus. There are mild to moderate areas of increased T2 / FLAIR signal intensity are present in the periventricular and deep white matter, n onspecific but likely related to chronic small vessel ischemic changes. Flow voids are identified in the proximal intracranial arteries and dural sinuses suggesting patency . There is a small left maxillary sinus mucous retention cyst and chronic deformity of the left lamina papyracea. IMPRESSION: 1. 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 2. Chronic left basal ganglia lacunar infarct. 3. Mild to moderate volume loss, with mild to moderate chronic small vessel ischemic changes. 4. Evaluation somewhat limited due to motion. RPTAT: VV .Anselmo Braxton MD, Date Time Electronically viewed and signed by .Anselmo Braxton MD, MD on 09/13/2016 08:21 .O/
[2016-09-13] MEDS: LOSARTAN 50 MG TAB PO SCH (08:51)
[2016-09-13] MEDS: FOLIC ACID 1 MG TAB PO SCH (08:51)
[2016-09-13] MEDS: FELODIPINE (ER) 5 MG TAB PO SCH (08:54)
--- NOTE | 2016-09-13 12:24 | PN ---
Date/Time of Note Date/Time of Note DATE: 09/13/16 TIME: 12:16 Assessment/Plan VTE Prophylaxis VTE Prophylaxis Intervention: SCD's Lines/Catheters IV [facility] Saline Lock Urinary Cath still in place: No Assessment/Plan Chief Complaint/Hosp Course 1. Acute encephalopathy. Most probably secondary to #2. Aspirin on hold because of worsening anemia. 2. 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 Aspirin on hold because of worsening anemia. Continue PT. 3. Accelerated hypertension. The patient will be continued on routine antihypertensives. The patient will be continued on p.r.n. antihypertensives for any systolic blood pressure readings greater than 180 mmHg. 4. Type 2 diabetes mellitus. Hemoglobin A1c 6.1. The patient will be continued on sliding scale insulin along with Lantus insulin and premeal insulin. 5. Dyslipidemia. Fasting lipid panel suboptimal. Continue statins. 6. Microcytic, hypochromic anemia. Secondary to GI bleed and iron deficiency. Continue PPI. S/P blood transfusion. Gastroenterology following. 7. Iron deficiency anemia. Continue iron supplements. 8. C. diff colitis. Enteric precautions. On oral Flagyl. 9. Fluids, electrolytes, and nutrition. Carbohydrate controlled, low- cholesterol diet. 10. DVT prophylaxis. Bilateral sequential compression devices. 11. Gastrointestinal prophylaxis. Proton pump inhibitors. 12. Plan. Await colonoscopy. Continue inpatient care. Case discussed with Dr. Beltran. Plan of care was explained to the patient's son who was at the bedside. Problems: Subjective 24 Hr Interval Summary Free Text/Dictation No changes in status. Scheduled for colonoscopy today. Exam/Review of Systems Vital Signs Vitals Vital Signs Date Time Temp Pulse Resp B/P Pulse Ox O2 Delivery O2 Flow Rate FiO2 09/13/16 11:43 98.3 86 18 146/65 95 09/12/16 16:00 Nasal Cannula 2.0 Intake and Output 09/12/16 09/12/16 09/13/16 15:00 23:00 07:00 Intake Total 1150 ml 1600 ml Output Total 650 ml Balance 500 ml 1600 ml Exam GENERAL: This is a slightly obese male sitting in bed in no apparent distress. HEENT: Head normocephalic and atraumatic. Eyes: Anicteric sclerae. Conjunctivae clear. ENT: Nasal septum is midline. Oral mucosa is dry. NECK: Supple. No JVD noticed. RESPIRATORY: Bilaterally diminished breath sounds. No use of adventitious muscles of respiration. CARDIAC: Regular rate and rhythm with a grade II/ systolic ejection murmur heard at the left sternal border. GASTROINTESTINAL: Abdomen soft, nontender, and nondistended. Bowel sounds positive in all 4 quadrants. GENITOURINARY: Deferred. EXTREMITIES: No cyanosis, no clubbing. Bilateral 2+ ankle edema. Peripheral pulses palpable. NEUROLOGIC: The patient is awake and alert. Oriented x2. Not sure about the date. Moves all 4 extremities. Equal strength in all 4 extremities. Tongue midline. Results Result Diagram: 09/13/16 0605 09/13/16 0605 Results 24 hrs Laboratory Tests Test 09/12/16 16:59 09/12/16 20:45 09/12/16 21:21 09/13/16 06:05 Bedside Glucose 112 121 Stool Occult Blood POSITIVE Anion Gap 18 H Basophils # 0.1 Basophils % 1.5 Blood Urea Nitrogen 17 Calcium Level 10.0 Carbon Dioxide Level 25 Chloride Level 104 Creatinine 0.80 Eosinophils # 0.3 Eosinophils % 4.5 Glucose Level 117 # Hematocrit 29.9 L Hemoglobin 8.6 L Lymphocytes # 1.8 Lymphocytes % 24.2 Magnesium Level 2.6 H Mean Corpuscular Hemoglobin 20.0 L Mean Corpuscular Hemoglobin Concent 28.8 L Mean Corpuscular Volume 69.4 L Mean Platelet Volume 10.4 Monocytes # 0.5 Monocytes % 7.0 Neutrophils # 4.7 Neutrophils % 62.5 Nucleated Red Blood Cells # 0.0 Nucleated Red Blood Cells % 0.0 Phosphorus Level 4.0 Platelet Count 365 Potassium Level 4.4 Red Blood Count 4.31 L Red Cell Distribution Width 24.4 H Sodium Level 143 White Blood Count 7.6 Test 09/13/16 08:14 09/13/16 11:21 Bedside Glucose 139 134 Medications Medications Current Medications Lorazepam (Ativan) 0.5 mg Q6H PRN IV ANXIETY Last administered on 09/12/16 03: 17; Admin Dose 0.5 MG; Start 09/11/16 at 18:30 Ondansetron HCl (Zofran Inj) 4 mg Q6H PRN IV NAUSEA AND/OR VOMITING; Start 09/11 at 18:30 Aspirin (Aspirin) 81 mg DAILY PO Last administered on 09/12/16 08:32; Admin Dose 81 MG; Start 09/12/16 at 09:00; Status Future Hold Acetaminophen (Tylenol Tab) 650 mg Q6H PRN PO PAIN LEVEL 1-3 OR FEVER; Start at 18:30 Acetaminophen/ Hydrocodone Bitart ([place] (5/325)) 1 tab Q6H PRN PO PAIN LEVEL 4 -6; Start 09/11/16 at 18:30 Morphine Sulfate (morphine) 2 mg Q4H PRN IV PAIN LEVEL 7-10; Start 09/11/16 at 18:30 Magnesium Hydroxide (Milk Of Mag) 30 ml DAILY PRN PO CONSTIPATION; Start at 18:30 Bisacodyl (Dulcolax) 5 mg DAILY PRN PO CONSTIPATION; Start 09/11/16 at 18:30 Insulin Glargine (Lantus) 8 unit DAILY@20 SC Last administered on 09/12/16 23: 27; Admin Dose 8 UNIT; Start 09/11/16 at 20:00 Atorvastatin Calcium (Lipitor) 20 mg QHS PO Last administered on 09/12/16 21:24 ; Admin Dose 20 MG; Start 09/11/16 at 21:00 Folic Acid (Folic Acid) 1 mg DAILY PO Last administered on 09/13/16 08:51; Admin Dose 1 MG; Start 09/12/16 at 09:00 Hydralazine HCl (Apresoline) 10 mg Q6H PRN IV SBP>180 Last administered on 05:35; Admin Dose 10 MG; Start 09/11/16 at 19:00 Diagnostic Test (Pha) (Accucheck) 1 ea 02 XX ; Start 09/12/16 at 02:00 Miscellaneous Information 1 ea NOTE XX ; Start 09/11/16 at 19:30 Glucose (Glutose) 15 gm Q15M PRN PO DECREASED GLUCOSE; Start 09/11/16 at 19:30 Glucose (Glutose) 22.5 gm Q15M PRN PO DECREASED GLUCOSE; Start 09/11/16 at 19:30 Dextrose (D50w Syringe) 25 ml Q15M PRN IV DECREASED GLUCOSE; Start 09/11/16 at 19:30 Dextrose (D50w Syringe) 50 ml Q15M PRN IV DECREASED GLUCOSE; Start 09/11/16 at 19:30 Glucagon (Glucagen) 1 mg Q15M PRN IM DECREASED GLUCOSE; Start 09/11/16 at 19:30 Glucose (Glutose) 15 gm Q15M PRN BUCCAL DECREASED GLUCOSE; Start 09/11/16 at 19: 30 Pantoprazole (Protonix Iv) 40 mg BID@06,18 IV Last administered on 09/13/16 05: 35; Admin Dose 40 MG; Start 09/12/16 at 11:00 Felodipine (Plendil) 10 mg DAILY PO Last administered on 09/13/16 08:54; Admin Dose 10 MG; Start 09/13/16 at 09:00 Losartan Potassium (Cozaar) 50 mg DAILY PO Last administered on 09/13/16 08:51 ; Admin Dose 50 MG; Start 09/13/16 at 09:00 Metronidazole (Flagyl) 500 mg Q8 PO ; Start 09/13/16 at 14:00 SUSAN BRAUN NP Sep 13, 2016 12:24
[2016-09-13] MEDS: metroNIDAZOLE 500 MG TAB PO SCH ×2 (14:16→21:42)
[2016-09-13] MEDS: SOD FERRIC GLUC COMPLX 125 MG in SOD CHLORIDE 0.9% 100 ML IVPB SCH (15:00)
--- NOTE | 2016-09-13 19:24 | CONS ---
Date/Time of Note Date/Time of Note DATE: 09/13/16 TIME: 19:22 Consult Date/Type/Reason Admit Date/Time Sep 11, 2016 at 17:05 Initial Consult Date Type of Consultation: neurology Subjective no acute events Objective Vital Signs Date Time Temp Pulse Resp B/P Pulse Ox O2 Delivery O2 Flow Rate FiO2 09/13/16 16:40 65 09/13/16 16:21 98.5 18 136/60 95 09/12/16 16:00 Nasal Cannula 2.0 Intake and Output 09/12/16 09/12/16 09/13/16 15:00 23:00 07:00 Intake Total 1150 ml 1600 ml Output Total 650 ml Balance 500 ml 1600 ml Results/Medications Result Diagram: 09/13/16 0609/13/16 0605 Results 24 hrs Laboratory Tests Test 09/12/16 20:45 09/12/16 21:21 09/13/16 06:05 09/13/16 08:14 Stool Occult Blood POSITIVE Bedside Glucose 121 139 Anion Gap 18 H Basophils # 0.1 Basophils % 1.5 Blood Urea Nitrogen 17 Calcium Level 10.0 Carbon Dioxide Level 25 Chloride Level 104 Creatinine 0.80 Eosinophils # 0.3 Eosinophils % 4.5 Glucose Level 117 # Hematocrit 29.9 L Hemoglobin 8.6 L Lymphocytes # 1.8 Lymphocytes % 24.2 Magnesium Level 2.6 H Mean Corpuscular Hemoglobin 20.0 L Mean Corpuscular Hemoglobin Concent 28.8 L Mean Corpuscular Volume 69.4 L Mean Platelet Volume 10.4 Monocytes # 0.5 Monocytes % 7.0 Neutrophils # 4.7 Neutrophils % 62.5 Nucleated Red Blood Cells # 0.0 Nucleated Red Blood Cells % 0.0 Phosphorus Level 4.0 Platelet Count 365 Potassium Level 4.4 Red Blood Count 4.31 L Red Cell Distribution Width 24.4 H Sodium Level 143 White Blood Count 7.6 Test 09/13/16 11:21 09/13/16 18:08 Bedside Glucose 134 129 Medications Current Medications Lorazepam (Ativan) 0.5 mg Q6H PRN IV ANXIETY Last administered on 09/12/16t 03: 17; Admin Dose 0.5 MG; Start 09/11/16 at 18:30 Ondansetron HCl (Zofran Inj) 4 mg Q6H PRN IV NAUSEA AND/OR VOMITING; Start 09/11 at 18:30 Aspirin (Aspirin) 81 mg DAILY PO Last administered on 09/12/16 08:32; Admin Dose 81 MG; Start 09/12/16 at 09:00; Status Future Hold Acetaminophen (Tylenol Tab) 650 mg Q6H PRN PO PAIN LEVEL 1-3 OR FEVER; Start at 18:30 Acetaminophen/ Hydrocodone Bitart ([place] (5/325)) 1 tab Q6H PRN PO PAIN LEVEL 4 -6; Start 09/11/16 at 18:30 Morphine Sulfate (morphine) 2 mg Q4H PRN IV PAIN LEVEL 7-10; Start 09/11/16 at 18:30 Magnesium Hydroxide (Milk Of Mag) 30 ml DAILY PRN PO CONSTIPATION; Start at 18:30 Bisacodyl (Dulcolax) 5 mg DAILY PRN PO CONSTIPATION; Start 09/11/16 at 18:30 Insulin Glargine (Lantus) 8 unit DAILY@20 SC Last administered on 09/12/16 23: 27; Admin Dose 8 UNIT; Start 09/11/16 at 20:00 Atorvastatin Calcium (Lipitor) 20 mg QHS PO Last administered on 09/12/16 21:24 ; Admin Dose 20 MG; Start 09/11/16 at 21:00 Folic Acid (Folic Acid) 1 mg DAILY PO Last administered on 09/13/16 08:51; Admin Dose 1 MG; Start 09/12/16 at 09:00 Hydralazine HCl (Apresoline) 10 mg Q6H PRN IV SBP>180 Last administered on 05:35; Admin Dose 10 MG; Start 09/11/16 at 19:00 Diagnostic Test (Pha) (Accucheck) 1 ea 02 XX ; Start 09/12/16 at 02:00 Miscellaneous Information 1 ea NOTE XX ; Start 09/11/16 at 19:30 Glucose (Glutose) 15 gm Q15M PRN PO DECREASED GLUCOSE; Start 09/11/16 at 19:30 Glucose (Glutose) 22.5 gm Q15M PRN PO DECREASED GLUCOSE; Start 09/11/16 at 19:30 Dextrose (D50w Syringe) 25 ml Q15M PRN IV DECREASED GLUCOSE; Start 09/11/16 at 19:30 Dextrose (D50w Syringe) 50 ml Q15M PRN IV DECREASED GLUCOSE; Start 09/11/16 at 19:30 Glucagon (Glucagen) 1 mg Q15M PRN IM DECREASED GLUCOSE; Start 09/11/16 at 19:30 Glucose (Glutose) 15 gm Q15M PRN BUCCAL DECREASED GLUCOSE; Start 09/11/16 at 19: 30 Pantoprazole (Protonix Iv) 40 mg BID@06,18 IV Last administered on 09/13/16 18: 30; Admin Dose 40 MG; Start 09/12/16 at 11:00 Felodipine (Plendil) 10 mg DAILY PO Last administered on 09/13/16 08:54; Admin Dose 10 MG; Start 09/13/16 at 09:00 Losartan Potassium (Cozaar) 50 mg DAILY PO Last administered on 09/13/16 08:51 ; Admin Dose 50 MG; Start 09/13/16 at 09:00 Metronidazole 500 mg 500 mg Q8 PO Last administered on 09/13/16 14:16; Admin Dose 500 MG; Start 09/13/16 at 14:00 Ferric Sodium Gluconate Complex/ Sodium Chloride (Ferrlecit/NS) 110 ml @ 100 mls/hr Q24H IVPB Last administered on 09/13/16 15:00; Admin Dose 100 MLS/HR; Start 09/13/16 at 14:00; Stop 09/15/16 at 15:05 Assessment/Plan Chief Complaint/Hosp Course PHYSICAL EXAMINATION: GENERAL: Not in acute distress, sitting on edge of the bed. Normocephalic, atraumatic. NECK: No carotid bruits. No thyromegaly. LUNGS: Clear to auscultation bilaterally. CARDIAC: Normal cardiac rhythm. Systolic ejection murmur heard. ABDOMEN: Soft, nontender. EXTREMITIES: No cyanosis, clubbing, or edema. NEUROLOGIC: He is awake, alert, and oriented x2, fluent speech. Cranial nerve examination shows a visual field defect in the left upper quadrant, not as consistent in the left lower quadrant. Pupils reactive from 2.5 to 1.5 mm on the left and from 3 to 2 mm on the right. Extraocular movements intact without nystagmus. Symmetrical face. Preserved facial strength and sensation. Tongue is in midline. Palate elevates symmetrically. Motor strength examination seems to be preserved in all extremities. Normal bulk, tone, and strength. Sensory examination grossly intact to light touch and pain. Deep tendon reflexes 2+ throughout. Downgoing toes bilaterally. Coordination preserved on [id number] testing. No dysmetria or tremor. Gait limping secondary to knee arthritis. IMPRESSION: Acute right occipital stroke on MRI of the brain. Severe anemia. Workup for GI source per primary MD. Continue current treatment with Lipitor. When patient's etiology of anemia found and he is not anemic any more, consider restarting antiplatelet therapy. Keep patient euglycemic and normotensive. Problems: IRINA VENTURA MD Sep 13, 2016 19:24
[2016-09-13] MEDS ORDERED: PROPOFOL 20 ML ONE (19:39)
[2016-09-13] MEDS ORDERED: MEPERIDINE 25 MG INJ IV PRN (20:00)
[2016-09-13] MEDS ORDERED: MIDAZOLAM 1 MG/ML 2 ML INJ IV PRN (20:00)
[2016-09-13] MEDS ORDERED: DIPHENHYDRAMINE 50 MG INJ IV PRN (20:00)
[2016-09-13] MEDS ORDERED: ONDANSETRON 4 MG INJ IV PRN (20:00)
[2016-09-13] MEDS ORDERED: METOCLOPRAMIDE 10 MG INJ IV PRN (20:00)
[2016-09-13] MEDS ORDERED: FENTAnyl 50 MCG/ML VIAL IV PRN (20:00)
[2016-09-13] MEDS: ATORVASTATIN 20 MG TAB PO SCH (21:42)
[2016-09-13] MEDS: INSULIN GLARGINE [LANtus] 3 ML PEN SC SCH (21:44)
[2016-09-14] VITALS (12 sets, daily range): BP systolic 143–181; BP diastolic 60–80; PULSE 58–86; RESP 18–20
[2016-09-14] MEDS: ACCUCHECK AT 2AM (Patients on SS coverage) XX SCH (02:00)
[2016-09-14] MEDS: PANTOPRAZOLE 40 MG INJ IV SCH ×2 (05:33→18:11)
[2016-09-14] MEDS: metroNIDAZOLE 500 MG TAB PO SCH ×3 (05:33→21:35)
[2016-09-14 07:41] LABS: ADD SCAN DIFF NO
[2016-09-14 07:49] LABS: ABNORMAL IP MESSAGE 1; BASOPHIL # 0.1 10^3/ul (0.0-0.1); BASOPHILS % 0.6 % (0.0-2.0); EOSINOPHILS # 0.2 10^3/ul (0.0-0.5); EOSINOPHILS % 1.7 % (0.0-7.0); HEMATOCRIT 29.3 % (42.0-52.0); HEMOGLOBIN 8.2 g/dl (14.0-18.0); LYMPHOCYTES # 1.5 10^3/ul (0.8-2.9); MEAN CORPUSCULAR HEMOGLOBIN 19.8 pg (29.0-33.0); MEAN CORPUSCULAR VOLUME 70.6 fl (82.0-101.0); MEAN PLATELET VOLUME 10.5 fl (7.4-10.4); MONOCYTE # 0.6 10^3/ul (0.3-0.9); NEUTROPHIL # 8.6 10^3/ul (1.6-7.5); NEUTROPHILS % 78.3 % (39.0-77.0); PLATELET COUNT 356 10^3/UL (140-415); RED BLOOD COUNT 4.15 10^6/ul (4.70-6.10)
[2016-09-14] MEDS: INSULIN ASPART [NOVOLOG] 3 ML PEN SC SCH ×7 (08:00→21:00)
[2016-09-14 08:05] LABS: POTASSIUM 4.2 mmol/L (3.5-5.1)
[2016-09-14 08:07] LABS: CREATININE 0.86 mg/dl (0.61-1.24)
[2016-09-14 08:08] LABS: CALCIUM 9.6 mg/dl (8.4-10.2)
[2016-09-14] MEDS: LOSARTAN 50 MG TAB PO SCH ×2 (09:09→21:35)
[2016-09-14] MEDS: FOLIC ACID 1 MG TAB PO SCH (09:09)
[2016-09-14] MEDS: FELODIPINE (ER) 5 MG TAB PO SCH (09:09)
[2016-09-14] MEDS: hydrALAzine 20 MG INJ IV PRN (09:10)
--- NOTE | 2016-09-14 14:38 | PN ---
Date/Time of Note Date/Time of Note DATE: 09/14/16 TIME: 14:35 Assessment/Plan VTE Prophylaxis VTE Prophylaxis Intervention: SCD's Lines/Catheters [facility] Saline Lock Urinary Cath still in place: No Assessment/Plan Chief Complaint/Hosp Course 1. Acute encephalopathy. Most probably secondary to #2. Aspirin on hold because of anemia. 2. 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 Aspirin on hold because of worsening anemia. Continue PT. 3. Accelerated hypertension. The patient will be continued on routine antihypertensives. The patient will be continued on p.r.n. antihypertensives for any systolic blood pressure readings greater than 180 mmHg. 4. Type 2 diabetes mellitus. Hemoglobin A1c 6.1. The patient will be continued on sliding scale insulin along with Lantus insulin and premeal insulin. 5. Dyslipidemia. Fasting lipid panel suboptimal. Continue statins. 6. Microcytic, hypochromic anemia. Secondary to GI bleed and iron deficiency. Continue PPI. S/P blood transfusion. Gastroenterology following. S/P colonoscopy on 09/13/16. Official results pending. 7. Iron deficiency anemia. Continue iron supplements. 8. C. diff colitis. Enteric precautions. On oral Flagyl. 9. Fluids, electrolytes, and nutrition. Carbohydrate controlled, low- cholesterol diet. 10. DVT prophylaxis. Bilateral sequential compression devices. 11. Gastrointestinal prophylaxis. Proton pump inhibitors. 12. Plan. S/P colonoscopy on 09/13/2016. Await further recommendations from consultants. Adjust antihypertensives to obtain optimal blood pressure control. Case discussed with Dr. Beltran. Plan of care was explained to the patient's family who was at the bedside. Problems: Subjective 24 Hr Interval Summary Free Text/Dictation BP on the higher side. Exam/Review of Systems Vital Signs Vitals Vital Signs Date Time Temp Pulse Resp B/P Pulse Ox O2 Delivery O2 Flow Rate FiO2 09/14/16 12:38 98.0 82 19 143/65 98 09/14/16 03:54 Room Air 09/13/16 19:55 10 Intake and Output 09/13/16 09/13/16 09/14/16 15:00 23:00 07:00 Intake Total 800 ml Balance 800 ml Exam GENERAL: This is a slightly obese male sitting in bed in no apparent distress. HEENT: Head normocephalic and atraumatic. Eyes: Anicteric sclerae. Conjunctivae clear. ENT: Nasal septum is midline. Oral mucosa is dry. NECK: Supple. No JVD noticed. RESPIRATORY: Bilaterally diminished breath sounds. No use of adventitious muscles of respiration. CARDIAC: Regular rate and rhythm with a grade II/ systolic ejection murmur heard at the left sternal border. GASTROINTESTINAL: Abdomen soft, nontender, and nondistended. Bowel sounds positive in all 4 quadrants. GENITOURINARY: Deferred. EXTREMITIES: No cyanosis, no clubbing. Bilateral 2+ ankle edema. Peripheral pulses palpable. NEUROLOGIC: The patient is awake and alert. Oriented x2. Not sure about the date. Moves all 4 extremities. Equal strength in all 4 extremities. Tongue midline. Results Result Diagram: 09/14/16 0644 09/14/16 0644 Results 24 hrs Laboratory Tests Test 09/13/16 18:08 09/13/16 21:24 09/14/16 06:44 09/14/16 06:46 Bedside Glucose 129 139 Anion Gap 17 H Basophils # 0.1 Basophils % 0.6 Blood Urea Nitrogen 13 Calcium Level 9.6 Carbon Dioxide Level 27 Chloride Level 105 Creatinine 0.86 Eosinophils # 0.2 Eosinophils % 1.7 Glucose Level 107 Hematocrit 29.3 L Hemoglobin 8.2 L Lymphocytes # 1.5 Lymphocytes % 14.0 L Magnesium Level 2.3 Mean Corpuscular Hemoglobin 19.8 L Mean Corpuscular Hemoglobin Concent 28.0 L Mean Corpuscular Volume 70.6 L Mean Platelet Volume 10.5 H Monocytes # 0.6 Monocytes % 5.0 Neutrophils # 8.6 H Neutrophils % 78.3 H Nucleated Red Blood Cells # 0.0 Nucleated Red Blood Cells % 0.0 Platelet Count 356 Potassium Level 4.2 Red Blood Count 4.15 L Red Cell Distribution Width 25.0 H Sodium Level 145 H White Blood Count 11.0 #H Carcinoembryonic Antigen 1.4 Test 09/14/16 07:49 09/14/16 12:24 Bedside Glucose 138 100 Medications Medications Current Medications Lorazepam (Ativan) 0.5 mg Q6H PRN IV ANXIETY Last administered on 09/12/16t 03: 17; Admin Dose 0.5 MG; Start 09/11/16 at 18:30 Ondansetron HCl (Zofran Inj) 4 mg Q6H PRN IV NAUSEA AND/OR VOMITING; Start 09/11 at 18:30 Aspirin (Aspirin) 81 mg DAILY PO Last administered on 09/12/16 08:32; Admin Dose 81 MG; Start 09/12/16 at 09:00; Status Future Hold Acetaminophen (Tylenol Tab) 650 mg Q6H PRN PO PAIN LEVEL 1-3 OR FEVER; Start at 18:30 Acetaminophen/ Hydrocodone Bitart ([place] (5/325)) 1 tab Q6H PRN PO PAIN LEVEL 4 -6; Start 09/11/16 at 18:30 Morphine Sulfate (morphine) 2 mg Q4H PRN IV PAIN LEVEL 7-10; Start 09/11/16 at 18:30 Magnesium Hydroxide (Milk Of Mag) 30 ml DAILY PRN PO CONSTIPATION; Start at 18:30 Bisacodyl (Dulcolax) 5 mg DAILY PRN PO CONSTIPATION; Start 09/11/16 at 18:30 Insulin Glargine (Lantus) 8 unit DAILY@20 SC Last administered on 09/13/16 21: 44; Admin Dose 8 UNIT; Start 09/11/16 at 20:00 Atorvastatin Calcium (Lipitor) 20 mg QHS PO Last administered on 09/13/16 21:42 ; Admin Dose 20 MG; Start 09/11/16 at 21:00 Folic Acid (Folic Acid) 1 mg DAILY PO Last administered on 09/14/16 09:09; Admin Dose 1 MG; Start 09/12/16 at 09:00 Hydralazine HCl (Apresoline) 10 mg Q6H PRN IV SBP>180 Last administered on 09:10; Admin Dose 10 MG; Start 09/11/16 at 19:00 Diagnostic Test (Pha) (Accucheck) 1 ea 02 XX ; Start 09/12/16 at 02:00 Miscellaneous Information 1 ea NOTE XX ; Start 09/11/16 at 19:30 Glucose (Glutose) 15 gm Q15M PRN PO DECREASED GLUCOSE; Start 09/11/16 at 19:30 Glucose (Glutose) 22.5 gm Q15M PRN PO DECREASED GLUCOSE; Start 09/11/16 at 19:30 Dextrose (D50w Syringe) 25 ml Q15M PRN IV DECREASED GLUCOSE; Start 09/11/16 at 19:30 Dextrose (D50w Syringe) 50 ml Q15M PRN IV DECREASED GLUCOSE; Start 09/11/16 at 19:30 Glucagon (Glucagen) 1 mg Q15M PRN IM DECREASED GLUCOSE; Start 09/11/16 at 19:30 Glucose (Glutose) 15 gm Q15M PRN BUCCAL DECREASED GLUCOSE; Start 09/11/16 at 19: 30 Pantoprazole (Protonix Iv) 40 mg BID@06,18 IV Last administered on 09/14/16 05: 33; Admin Dose 40 MG; Start 09/12/16 at 11:00 Metronidazole 500 mg 500 mg Q8 PO Last administered on 09/14/16 05:33; Admin Dose 500 MG; Start 09/13/16 at 14:00 Ferric Sodium Gluconate Complex/ Sodium Chloride (Ferrlecit/NS) 110 ml @ 100 mls/hr Q24H IVPB Last administered on 09/13/16 15:00; Admin Dose 100 MLS/HR; Start 09/13/16 at 14:00; Stop 09/15/16 at 15:05 Losartan Potassium (Cozaar) 50 mg BID PO ; Start 09/14/16 at 21:00 Nifedipine (Procardia Xl) 60 mg BID PO ; Start 09/14/16 at 21:00 SUSAN BRAUN NP Sep 14, 2016 14:38
[2016-09-14] MEDS: SOD FERRIC GLUC COMPLX 125 MG in SOD CHLORIDE 0.9% 100 ML IVPB SCH (15:40)
--- NOTE | 2016-09-14 16:35 | CONS ---
Date/Time of Note Date/Time of Note DATE: 09/14/16 TIME: 16:32 Assessment/Plan Assessment/Plan Chief Complaint/Hosp Course 66-year-old male with history of diabetes, hypertension, and high cholesterol presented with a myriad of symptoms to ED yesterday. During hospitalization patient reports hematochezia 2 episodes. Per son, patient has been having intermittent hematochezia episodes for the last week. He also reports that patient has had intermittent episodes of hematochezia for several months. At bedside patient denies abdominal pain, nausea, vomiting, and diarrhea. Per son , patient reports having colonoscopy a few months ago but unsure of results. Reports polyps but unsure if they were removed. Denies family history of colon cancer and inflammatory bowel disease. Presently son does not consent to colonoscopy. Will order CT abdomen and further evaluate. Problems: Additional Assessment/Plan Rectal Bleeding * Status post colonoscopy 09-13-16: * Large circumferential 5 cm mass at 25 cm of sigmoid colon partially obstructing. Biopsies obtained. Touch to the distal margin * Recommend surgery consult * Continue clear liquid diet until cleared by surgery * Stool OB, if positive strongly recommend colonoscopy * Monitor H&H every 8 hours, transfuse 2 units for hemoglobin less than 7.5 * Monitor labs * CT abdomen * C difficile stool test, positive Hypertension * Management per Primary * Cardiology following Diabetes * Management per Primary Acute encephalopathy * Neurology following Further recommendations depend on clinical course Patient seen in collaboration with Dr. Kearney Consultation Date/Type/Reason Admit Date/Time Sep 11, 2016 at 17:05 Initial Consult Date Type of Consultation: Gastroenterology 24 HR Interval Summary Free Text/Dictation Advise patient and of colonoscopy results Awaiting surgical consult Exam/Review of Systems Vital Signs Vitals Vital Signs Date Time Temp Pulse Resp B/P Pulse Ox O2 Delivery O2 Flow Rate FiO2 09/14/16 15:53 97.2 71 19 159/60 97 09/14/16 03:54 Room Air 09/13/16 19:55 10 Intake and Output 09/13/16 09/13/16 09/14/16 15:00 23:00 07:00 Intake Total 800 ml Balance 800 ml Exam Constitutional: alert, oriented, well developed Psych: nl mood/affect Head: normocephalic Eyes: EOMI, nl conjunctiva, nl lids ENMT: nl external ears & nose, nl lips & teeth, nl nasal mucosa & septum Respiratory: clear to auscultation, normal air movement Cardiovascular: regular rate and rhythm Gastrointestinal: soft, non-tender Musculoskeletal: nl extremities to inspection Neurological: MICROFILM CLERK II-XII intact Results Result Diagram: 09/14/16 0644 09/14/16 0644 Results 24 hrs Laboratory Tests Test 09/13/16 18:08 09/13/16 21:24 09/14/16 06:44 09/14/16 06:46 Bedside Glucose 129 139 Anion Gap 17 H Basophils # 0.1 Basophils % 0.6 Blood Urea Nitrogen 13 Calcium Level 9.6 Carbon Dioxide Level 27 Chloride Level 105 Creatinine 0.86 Eosinophils # 0.2 Eosinophils % 1.7 Glucose Level 107 Hematocrit 29.3 L Hemoglobin 8.2 L Lymphocytes # 1.5 Lymphocytes % 14.0 L Magnesium Level 2.3 Mean Corpuscular Hemoglobin 19.8 L Mean Corpuscular Hemoglobin Concent 28.0 L Mean Corpuscular Volume 70.6 L Mean Platelet Volume 10.5 H Monocytes # 0.6 Monocytes % 5.0 Neutrophils # 8.6 H Neutrophils % 78.3 H Nucleated Red Blood Cells # 0.0 Nucleated Red Blood Cells % 0.0 Platelet Count 356 Potassium Level 4.2 Red Blood Count 4.15 L Red Cell Distribution Width 25.0 H Sodium Level 145 H White Blood Count 11.0 #H Carcinoembryonic Antigen 1.4 Test 09/14/16 07:49 09/14/16 12:24 Bedside Glucose 138 100 Medications Medications Current Medications Lorazepam (Ativan) 0.5 mg Q6H PRN IV ANXIETY Last administered on 09/12/16 03: 17; Admin Dose 0.5 MG; Start 09/11/16 at 18:30 Ondansetron HCl (Zofran Inj) 4 mg Q6H PRN IV NAUSEA AND/OR VOMITING; Start 09/11 at 18:30 Aspirin (Aspirin) 81 mg DAILY PO Last administered on 09/12/16 08:32; Admin Dose 81 MG; Start 09/12/16 at 09:00; Status Future Hold Acetaminophen (Tylenol Tab) 650 mg Q6H PRN PO PAIN LEVEL 1-3 OR FEVER; Start at 18:30 Acetaminophen/ Hydrocodone Bitart ([place] (5/325)) 1 tab Q6H PRN PO PAIN LEVEL 4 -6; Start 09/11/16 at 18:30 Morphine Sulfate (morphine) 2 mg Q4H PRN IV PAIN LEVEL 7-10; Start 09/11/16 at 18:30 Magnesium Hydroxide (Milk Of Mag) 30 ml DAILY PRN PO CONSTIPATION; Start at 18:30 Bisacodyl (Dulcolax) 5 mg DAILY PRN PO CONSTIPATION; Start 09/11/16 at 18:30 Insulin Glargine (Lantus) 8 unit DAILY@20 SC Last administered on 09/13/16 21: 44; Admin Dose 8 UNIT; Start 09/11/16 at 20:00 Atorvastatin Calcium (Lipitor) 20 mg QHS PO Last administered on 09/13/16 21:42 ; Admin Dose 20 MG; Start 09/11/16 at 21:00 Folic Acid (Folic Acid) 1 mg DAILY PO Last administered on 09/14/16 09:09; Admin Dose 1 MG; Start 09/12/16 at 09:00 Hydralazine HCl (Apresoline) 10 mg Q6H PRN IV SBP>180 Last administered on 09:10; Admin Dose 10 MG; Start 09/11/16 at 19:00 Diagnostic Test (Pha) (Accucheck) 1 ea 02 XX ; Start 09/12/16 at 02:00 Miscellaneous Information 1 ea NOTE XX ; Start 09/11/16 at 19:30 Glucose (Glutose) 15 gm Q15M PRN PO DECREASED GLUCOSE; Start 09/11/16 at 19:30 Glucose (Glutose) 22.5 gm Q15M PRN PO DECREASED GLUCOSE; Start 09/11/16 at 19:30 Dextrose (D50w Syringe) 25 ml Q15M PRN IV DECREASED GLUCOSE; Start 09/11/16 at 19:30 Dextrose (D50w Syringe) 50 ml Q15M PRN IV DECREASED GLUCOSE; Start 09/11/16 at 19:30 Glucagon (Glucagen) 1 mg Q15M PRN IM DECREASED GLUCOSE; Start 09/11/16 at 19:30 Glucose (Glutose) 15 gm Q15M PRN BUCCAL DECREASED GLUCOSE; Start 09/11/16 at 19: 30 Pantoprazole (Protonix Iv) 40 mg BID@06,18 IV Last administered on 09/14/16 05: 33; Admin Dose 40 MG; Start 09/12/16 at 11:00 Metronidazole 500 mg 500 mg Q8 PO Last administered on 09/14/16 15:40; Admin Dose 500 MG; Start 09/13/16 at 14:00 Ferric Sodium Gluconate Complex/ Sodium Chloride (Ferrlecit/NS) 110 ml @ 100 mls/hr Q24H IVPB Last administered on 09/14/16 15:40; Admin Dose 100 MLS/HR; Start 09/13/16 at 14:00; Stop 09/15/16 at 15:05 Losartan Potassium (Cozaar) 50 mg BID PO ; Start 09/14/16 at 21:00 Nifedipine (Procardia Xl) 60 mg BID PO ; Start 09/14/16 at 21:00 HORACIO SALMON Sep 14, 2016 16:35
[2016-09-14] MEDS ORDERED: ERYTHROMYCIN BASE (EC) 500 MG TAB PO ONE (20:00)
[2016-09-14] MEDS ORDERED: NEOMYCIN 500 MG TAB PO ONE (20:00)
[2016-09-14] MEDS: NIFEdipine (XL) 60 MG TAB PO SCH (21:35)
[2016-09-14] MEDS: ATORVASTATIN 20 MG TAB PO SCH (21:35)
[2016-09-14] MEDS: INSULIN GLARGINE [LANtus] 3 ML PEN SC SCH (21:36)
[2016-09-15] VITALS (11 sets, daily range): BP systolic 124–153; BP diastolic 60–68; PULSE 66–79; RESP 18–20
[2016-09-15] MEDS: ACCUCHECK AT 2AM (Patients on SS coverage) XX SCH (02:00)
--- NOTE | 2016-09-15 03:52 | HP ---
DATE OF ADMISSION: 09/11/2016 TYPE OF CONSULTATION: Surgery. 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 HISTORY OF PRESENT ILLNESS: The patient is a 66-year-old gentleman who was admitted on 09/11/2016 w ith neurologic symptoms consisting of blurred vision, dizziness and confusion. A CT scan showed adam e abnormalities in the right posterior occipital lobe. He has been seen in neurologic consultation and is being treated. Incidentally noted was an episode of hematochezia, which the patient then lat er stated that this has been going on for several months. He was anemic. This was worked up and in cluded a colonoscopy, which was completed yesterday. Colonoscopy showed a bulky neoplasm at 25 cm i n the sigmoid colon. A CT scan did not show any other abnormalities. Surgical consultation was req uested in regards to surgical options. PAST MEDICAL HISTORY: Patient has had no previous abdominal surgeries. The patient is diabetic and has had a history of TIAs. MEDICATIONS: Outlined in the chart. ALLERGIES: NONE. REVIEW OF SYSTEMS: HEAD, EARS, EYES, NOSE AND THROAT: As in the HPI. PULMONARY: No history of pneumonia or shortness of breath. CARDIAC: No history of chest pain, MD or arrhythmia. ABDOMEN: As in the HPI. EXTREMITIES: Unremarkable. PHYSICAL EXAMINATION: GENERAL: The patient is an alert and oriented 66-year-old Mongolian-speaking male in no acute distres s. HEAD, EARS, EYES, NOSE, THROAT: Within normal limits. LUNGS: Clear. HEART: Regular rhythm. ABDOMEN: Soft, nontender, without masses or hernias. EXTREMITIES: Unremarkable. LABORATORY DATA: The patient's hematocrit today is 29.3 with a white count of 11,000. BUN, glucose , electrolytes show glucose of 159. INR is 0.99. CT scan of the abdomen and pelvis show an irregul ar sigmoid wall thickening compatible with neoplasm. No other intraperitoneal abnormalities are not ed. Brain MRI shows acute recent right MEDICAL APPOINTMENT CLERK territory infarct as well as a chronic left basal gangli a lacunar infarct with chronic ischemic changes. IMPRESSION: This patient has what appears to be a carcinoma of the sigmoid, partially obstructing b y Dr. Kearney's account. PLAN: The patient will require sigmoid colon resection and with that, the possibility of a temporar y colostomy. I have discussed this in some detail with the patient's daughter, , and patient. We will arrange for the procedure to be done tomorrow pending medical clearance. The timing of his surgery may have to be readjusted based on medical status and clearance. Dictated By: MECCA DE LEON/ABDOULAYE Conf#: [id number] DID#: [id number]
[2016-09-15] MEDS: PANTOPRAZOLE 40 MG INJ IV SCH ×2 (06:18→18:56)
[2016-09-15] MEDS: metroNIDAZOLE 500 MG TAB PO SCH ×3 (06:18→20:51)
[2016-09-15 07:57] LABS: ADD SCAN DIFF NO
[2016-09-15] MEDS: INSULIN ASPART [NOVOLOG] 3 ML PEN SC SCH ×7 (08:00→21:00)
[2016-09-15 08:02] LABS: ABNORMAL IP MESSAGE 1; BASOPHIL # 0.1 10^3/ul (0.0-0.1); BASOPHILS % 1.3 % (0.0-2.0); EOSINOPHILS # 0.2 10^3/ul (0.0-0.5); EOSINOPHILS % 3.5 % (0.0-7.0); HEMATOCRIT 27.7 % (42.0-52.0); HEMOGLOBIN 7.8 g/dl (14.0-18.0); LYMPHOCYTES # 1.3 10^3/ul (0.8-2.9); LYMPHOCYTES % 18.1 % (15.0-51.0); MEAN CORPUSCULAR HEMOGLOBIN 19.9 pg (29.0-33.0); MEAN CORPUSCULAR HGB CONC 28.2 g/dl (32.0-37.0); MEAN CORPUSCULAR VOLUME 70.8 fl (82.0-101.0); MEAN PLATELET VOLUME 10.2 fl (7.4-10.4); MONOCYTE # 0.5 10^3/ul (0.3-0.9); MONOCYTES % 6.8 % (0.0-11.0); NEUTROPHIL # 4.8 10^3/ul (1.6-7.5); NEUTROPHILS % 69.9 % (39.0-77.0); PLATELET COUNT 310 10^3/UL (140-415); RED BLOOD COUNT 3.91 10^6/ul (4.70-6.10); RED CELL DISTRIBUTION WIDTH 25.2 % (11.5-14.5); WHITE BLOOD COUNT 6.9 10^3/ul (4.8-10.8)
[2016-09-15 08:24] LABS: POTASSIUM 3.9 mmol/L (3.5-5.1)
[2016-09-15 08:27] LABS: CREATININE 1.18 mg/dl (0.61-1.24)
[2016-09-15 08:28] LABS: CALCIUM 9.4 mg/dl (8.4-10.2)
[2016-09-15] MEDS: NIFEdipine (XL) 60 MG TAB PO SCH ×2 (08:44→20:51)
[2016-09-15] MEDS: LOSARTAN 50 MG TAB PO SCH ×2 (08:44→20:51)
[2016-09-15] MEDS: FOLIC ACID 1 MG TAB PO SCH (08:44)
--- NOTE | 2016-09-15 10:42 | CONS ---
Date/Time of Note Date/Time of Note DATE: 09/15/16 TIME: 10:33 Assessment/Plan Assessment/Plan Chief Complaint/Hosp Course Pre-operative evaluation: The pt is to undergo a intermediate risk surgery. He has risk factors for CAD but no active ischemia or symptoms. He is able to ambulate >4 METs without symptoms. Echo has preserved EF and mild . No e/o heart failure by exam. He is at intermediate risk for surgery. No further testing s indicated. Mild : outpt f/u HTN: BP mostly controlled but high at times DM CVA Colon cancer: awaiting resection -proceed with surgery as planned without further testing -restart ASA after surgery when safe for pt's CVA -continue statin -continue cozaar, nifedipine -add hydralazine 25mg q8h -will follow as needed post-op Problems: Consultation Date/Type/Reason Admit Date/Time Sep 11, 2016 at 17:05 Date of Consultation: Sep 15, 2016 Type of Consultation: Cardiology Reason for Consultation Pre-op evaluation Referring Provider: SUSAN BRAUN NP Hx of Present Illness 66 yo M with a h/o DM, HTN, HL, CVA, prior seizures, who presented with delirium and workup revealed a subacute stroke and colon mass for which the pt is being planned for resection. The pt's son is used for interpretation. The pt has apparently been having generalize weakness over the past month and has not been walking around much but prior to that he was active and denies CP or SOB. No orthopnea, edema, PND. No prior cardiac history. The pt is back to his baseline mentation per the family. Currently asymptomatic. per HPI Past Medical History per HPI Social History Smoking Status: Former smoker Exam/Review of Systems Vital Signs Vitals Vital Signs Date Time Temp Pulse Resp B/P Pulse Ox O2 Delivery O2 Flow Rate FiO2 09/15/16 08:22 72 09/15/16 07:48 97.0 18 124/60 98 09/15/16 04:53 Room Air 09/13/16 19:55 10 Intake and Output 09/14/16 09/14/16 09/15/16 15:00 23:00 07:00 Intake Total 660 ml Balance 660 ml Exam Constitutional: alert, oriented Psych: no complaints Head: atraumatic, normocephalic Eyes: nl conjunctiva ENMT: nl nasal mucosa & septum Neck: No jvd Respiratory: clear to auscultation, No crackles/rales Cardiovascular: edema (trace), regular rate and rhythm, systolic murmur (09/11 mid peaking JAYSON) Gastrointestinal: non-tender, soft Extremities: normal pulses Neurological: nl mental status, nl speech Results EKG: sinus, no ST changes Echo Conclusions 1. Normal left ventricular systolic function. Normal left ventricular cavity size. Mild concentric left ventricular hypertrophy. Ejection fraction is visually estimated at 65 %. Tissue Doppler/Mitral Doppler indices are consistent with impaired relaxation (Stage I diastolic dysfunction). 2. Mild aortic stenosis. Aortic valve Max velocity 2.21 m/sec. Max PG 19.00 mmHg. Mean PG 10.00 mmHg. 3. Unable to obtain RVSP. RA pressure is 3 mmHg. Result Diagram: 09/15/1671409/15/16714 Results 24 hrs Laboratory Tests Test 09/14/16 12:24 09/14/16 18:12 09/14/16 19:57 09/15/16 07:15 Bedside Glucose 100 159 124 Anion Gap 19 H Basophils # 0.1 Basophils % 1.3 Blood Urea Nitrogen 22 H Calcium Level 9.4 Carbon Dioxide Level 22 Chloride Level 107 Creatinine 1.18 Eosinophils # 0.2 Eosinophils % 3.5 Glucose Level 132 Hematocrit 27.7 L Hemoglobin 7.8 L Lymphocytes # 1.3 Lymphocytes % 18.1 Magnesium Level 2.1 Mean Corpuscular Hemoglobin 19.9 L Mean Corpuscular Hemoglobin Concent 28.2 L Mean Corpuscular Volume 70.8 L Mean Platelet Volume 10.2 Monocytes # 0.5 Monocytes % 6.8 Neutrophils # 4.8 Neutrophils % 69.9 Nucleated Red Blood Cells # 0.0 Nucleated Red Blood Cells % 0.0 Platelet Count 310 Potassium Level 3.9 Red Blood Count 3.91 L Red Cell Distribution Width 25.2 H Sodium Level 144 White Blood Count 6.9 # Test 09/15/16 07:44 Bedside Glucose 163 Medications Medications Current Medications Lorazepam (Ativan) 0.5 mg Q6H PRN IV ANXIETY Last administered on 09/12/16t 03: 17; Admin Dose 0.5 MG; Start 09/11/16 at 18:30 Ondansetron HCl (Zofran Inj) 4 mg Q6H PRN IV NAUSEA AND/OR VOMITING; Start 09/11 at 18:30 Aspirin (Aspirin) 81 mg DAILY PO Last administered on 09/12/16 08:32; Admin Dose 81 MG; Start 09/12/16 at 09:00; Status Future Hold Acetaminophen (Tylenol Tab) 650 mg Q6H PRN PO PAIN LEVEL 1-3 OR FEVER; Start at 18:30 Acetaminophen/ Hydrocodone Bitart ([place] (5/325)) 1 tab Q6H PRN PO PAIN LEVEL 4 -6; Start 09/11/16 at 18:30 Morphine Sulfate (morphine) 2 mg Q4H PRN IV PAIN LEVEL 7-10; Start 09/11/16 at 18:30 Magnesium Hydroxide (Milk Of Mag) 30 ml DAILY PRN PO CONSTIPATION; Start at 18:30 Bisacodyl (Dulcolax) 5 mg DAILY PRN PO CONSTIPATION; Start 09/11/16 at 18:30 Insulin Glargine (Lantus) 8 unit DAILY@20 SC Last administered on 09/14/16 21: 36; Admin Dose 8 UNIT; Start 09/11/16 at 20:00 Atorvastatin Calcium (Lipitor) 20 mg QHS PO Last administered on 09/14/16 21:35 ; Admin Dose 20 MG; Start 09/11/16 at 21:00 Folic Acid (Folic Acid) 1 mg DAILY PO Last administered on 09/14/16 09:09; Admin Dose 1 MG; Start 09/12/16 at 09:00 Hydralazine HCl (Apresoline) 10 mg Q6H PRN IV SBP>180 Last administered on 09:10; Admin Dose 10 MG; Start 09/11/16 at 19:00 Diagnostic Test (Pha) (Accucheck) 1 ea 02 XX ; Start 09/12/16 at 02:00 Miscellaneous Information 1 ea NOTE XX ; Start 09/11/16 at 19:30 Glucose (Glutose) 15 gm Q15M PRN PO DECREASED GLUCOSE; Start 09/11/16 at 19:30 Glucose (Glutose) 22.5 gm Q15M PRN PO DECREASED GLUCOSE; Start 09/11/16 at 19:30 Dextrose (D50w Syringe) 25 ml Q15M PRN IV DECREASED GLUCOSE; Start 09/11/16 at 19:30 Dextrose (D50w Syringe) 50 ml Q15M PRN IV DECREASED GLUCOSE; Start 09/11/16 at 19:30 Glucagon (Glucagen) 1 mg Q15M PRN IM DECREASED GLUCOSE; Start 09/11/16 at 19:30 Glucose (Glutose) 15 gm Q15M PRN BUCCAL DECREASED GLUCOSE; Start 09/11/16 at 19: 30 Pantoprazole (Protonix Iv) 40 mg BID@06,18 IV Last administered on 09/15/16 06 :18; Admin Dose 40 MG; Start 09/12/16 at 11:00 Metronidazole 500 mg 500 mg Q8 PO Last administered on 09/15/16 06:18; Admin Dose 500 MG; Start 09/13/16 at 14:00 Ferric Sodium Gluconate Complex/ Sodium Chloride (Ferrlecit/NS) 110 ml @ 100 mls/hr Q24H IVPB Last administered on 09/14/16 15:40; Admin Dose 100 MLS/HR; Start 09/13/16 at 14:00; Stop 09/15/16 at 15:05 Losartan Potassium (Cozaar) 50 mg BID PO Last administered on 09/14/16 21:35; Admin Dose 50 MG; Start 09/14/16 at 21:00 Nifedipine (Procardia Xl) 60 mg BID PO Last administered on 09/14/16 21:35; Admin Dose 60 MG; Start 09/14/16 at 21:00 COURTNEY MCGEE Sep 15, 2016 10:42
[2016-09-15] MEDS: SOD FERRIC GLUC COMPLX 125 MG in SOD CHLORIDE 0.9% 100 ML IVPB SCH (14:25)
--- NOTE | 2016-09-15 14:50 | CONS ---
Date/Time of Note Date/Time of Note DATE: 09/15/16 TIME: 14:49 Assessment/Plan Assessment/Plan Chief Complaint/Hosp Course 66-year-old male with history of diabetes, hypertension, and high cholesterol presented with a myriad of symptoms to ED yesterday. During hospitalization patient reports hematochezia 2 episodes. Per son, patient has been having intermittent hematochezia episodes for the last week. He also reports that patient has had intermittent episodes of hematochezia for several months. At bedside patient denies abdominal pain, nausea, vomiting, and diarrhea. Per son , patient reports having colonoscopy a few months ago but unsure of results. Reports polyps but unsure if they were removed. Denies family history of colon cancer and inflammatory bowel disease. Presently son does not consent to colonoscopy. Will order CT abdomen and further evaluate. Problems: Additional Assessment/Plan Rectal Bleeding * Status post colonoscopy 09-13-16: * Large circumferential 5 cm mass at 25 cm of sigmoid colon partially obstructing. Biopsies obtained. Touch to the distal margin * Recommend surgery consult * Continue clear liquid diet until cleared by surgery * Stool OB, if positive strongly recommend colonoscopy * Monitor H&H every 8 hours, transfuse 2 units for hemoglobin less than 7.5 * Monitor labs * CT abdomen * C difficile stool test, positive Hypertension * Management per Primary * Cardiology following Diabetes * Management per Primary Acute encephalopathy * Neurology following Further recommendations depend on clinical course Patient seen in collaboration with Dr. Kearney Consultation Date/Type/Reason Admit Date/Time Sep 11, 2016 at 17:05 Type of Consultation: Gastroenterology Referring Provider: SUSAN BRAUN NP 24 HR Interval Summary Free Text/Dictation Colon resection plan today Hemoglobin stable Exam/Review of Systems Vital Signs Vitals Vital Signs Date Time Temp Pulse Resp B/P Pulse Ox O2 Delivery O2 Flow Rate FiO2 09/15/16 12:22 70 09/15/16 11:00 97.9 19 129/62 99 09/15/16 04:53 Room Air 09/13/16 19:55 10 Intake and Output 09/14/16 09/14/16 09/15/16 15:00 23:00 07:00 Intake Total 660 ml Balance 660 ml Exam Constitutional: alert, oriented, well developed Psych: nl mood/affect Head: normocephalic Eyes: EOMI, nl conjunctiva, nl lids ENMT: nl external ears & nose, nl lips & teeth, nl nasal mucosa & septum Respiratory: clear to auscultation, normal air movement Cardiovascular: regular rate and rhythm Gastrointestinal: soft, non-tender Musculoskeletal: nl extremities to inspection Neurological: PIE TOPPER II-XII intact Results Result Diagram: 09/15/16 0715 09/15/16 0715 Results 24 hrs Laboratory Tests Test 09/14/16 18:12 09/14/16 19:57 09/15/16 07:15 09/15/16 07:44 Bedside Glucose 159 124 163 Anion Gap 19 H Basophils # 0.1 Basophils % 1.3 Blood Urea Nitrogen 22 H Calcium Level 9.4 Carbon Dioxide Level 22 Chloride Level 107 Creatinine 1.18 Eosinophils # 0.2 Eosinophils % 3.5 Glucose Level 132 Hematocrit 27.7 L Hemoglobin 7.8 L Lymphocytes # 1.3 Lymphocytes % 18.1 Magnesium Level 2.1 Mean Corpuscular Hemoglobin 19.9 L Mean Corpuscular Hemoglobin Concent 28.2 L Mean Corpuscular Volume 70.8 L Mean Platelet Volume 10.2 Monocytes # 0.5 Monocytes % 6.8 Neutrophils # 4.8 Neutrophils % 69.9 Nucleated Red Blood Cells # 0.0 Nucleated Red Blood Cells % 0.0 Platelet Count 310 Potassium Level 3.9 Red Blood Count 3.91 L Red Cell Distribution Width 25.2 H Sodium Level 144 White Blood Count 6.9 # Test 09/15/16 12:16 Bedside Glucose 140 Medications Medications Current Medications Lorazepam (Ativan) 0.5 mg Q6H PRN IV ANXIETY Last administered on 09/12/16 03: 17; Admin Dose 0.5 MG; Start 09/11/16 at 18:30 Ondansetron HCl (Zofran Inj) 4 mg Q6H PRN IV NAUSEA AND/OR VOMITING; Start 09/11 at 18:30 Aspirin (Aspirin) 81 mg DAILY PO Last administered on 09/12/16 08:32; Admin Dose 81 MG; Start 09/12/16 at 09:00; Status Future Hold Acetaminophen (Tylenol Tab) 650 mg Q6H PRN PO PAIN LEVEL 1-3 OR FEVER; Start at 18:30 Acetaminophen/ Hydrocodone Bitart ([place] (5/325)) 1 tab Q6H PRN PO PAIN LEVEL 4 -6; Start 09/11/16 at 18:30 Morphine Sulfate (morphine) 2 mg Q4H PRN IV PAIN LEVEL 7-10; Start 09/11/16 at 18:30 Magnesium Hydroxide (Milk Of Mag) 30 ml DAILY PRN PO CONSTIPATION; Start at 18:30 Bisacodyl (Dulcolax) 5 mg DAILY PRN PO CONSTIPATION; Start 09/11/16 at 18:30 Insulin Glargine (Lantus) 8 unit DAILY@20 SC Last administered on 09/14/16 21: 36; Admin Dose 8 UNIT; Start 09/11/16 at 20:00 Atorvastatin Calcium (Lipitor) 20 mg QHS PO Last administered on 09/14/16 21:35 ; Admin Dose 20 MG; Start 09/11/16 at 21:00 Folic Acid (Folic Acid) 1 mg DAILY PO Last administered on 09/14/16 09:09; Admin Dose 1 MG; Start 09/12/16 at 09:00 Hydralazine HCl (Apresoline) 10 mg Q6H PRN IV SBP>180 Last administered on 09:10; Admin Dose 10 MG; Start 09/11/16 at 19:00 Diagnostic Test (Pha) (Accucheck) 1 ea 02 XX ; Start 09/12/16 at 02:00 Miscellaneous Information 1 ea NOTE XX ; Start 09/11/16 at 19:30 Glucose (Glutose) 15 gm Q15M PRN PO DECREASED GLUCOSE; Start 09/11/16 at 19:30 Glucose (Glutose) 22.5 gm Q15M PRN PO DECREASED GLUCOSE; Start 09/11/16 at 19:30 Dextrose (D50w Syringe) 25 ml Q15M PRN IV DECREASED GLUCOSE; Start 09/11/16 at 19:30 Dextrose (D50w Syringe) 50 ml Q15M PRN IV DECREASED GLUCOSE; Start 09/11/16 at 19:30 Glucagon (Glucagen) 1 mg Q15M PRN IM DECREASED GLUCOSE; Start 09/11/16 at 19:30 Glucose (Glutose) 15 gm Q15M PRN BUCCAL DECREASED GLUCOSE; Start 09/11/16 at 19: 30 Pantoprazole (Protonix Iv) 40 mg BID@06,18 IV Last administered on 09/15/16 06 :18; Admin Dose 40 MG; Start 09/12/16 at 11:00 Metronidazole 500 mg 500 mg Q8 PO Last administered on 09/15/16 06:18; Admin Dose 500 MG; Start 09/13/16 at 14:00 Ferric Sodium Gluconate Complex/ Sodium Chloride (Ferrlecit/NS) 110 ml @ 100 mls/hr Q24H IVPB Last administered on 09/15/16 14:25; Admin Dose 100 MLS/HR; Start 09/13/16 at 14:00; Stop 09/15/16 at 15:05 Losartan Potassium (Cozaar) 50 mg BID PO Last administered on 09/14/16 21:35; Admin Dose 50 MG; Start 09/14/16 at 21:00 Nifedipine (Procardia Xl) 60 mg BID PO Last administered on 09/14/16 21:35; Admin Dose 60 MG; Start 09/14/16 at 21:00 Hydralazine HCl (Apresoline) 25 mg Q8 PO ; Start 09/15/16 at 14:00 HORACIO SALMON Sep 15, 2016 14:50
--- NOTE | 2016-09-15 16:24 | PN ---
Date/Time of Note Date/Time of Note DATE: 09/15/16 TIME: 16:23 Assessment/Plan VTE Prophylaxis VTE Prophylaxis Intervention: SCD's Lines/Catheters IV [facility] Urinary Cath still in place: No Assessment/Plan Chief Complaint/Hosp Course 1. Acute encephalopathy. Largely resolved. Most probably secondary to #2. Aspirin on hold because of anemia. 2. Acute/recent right [employer] territory infarcts. Aspirin on hold because of worsening anemia. Continue PT. 3. Accelerated hypertension. The patient will be continued on routine antihypertensives. The patient will be continued on p.r.n. antihypertensives for any systolic blood pressure readings greater than 180 mmHg. 4. Type 2 diabetes mellitus. Hemoglobin A1c 6.1. The patient will be continued on sliding scale insulin along with Lantus insulin and premeal insulin. 5. Dyslipidemia. Fasting lipid panel suboptimal. Continue statins. 6. Microcytic, hypochromic anemia. Secondary to GI bleed and iron deficiency. Continue PPI. S/P blood transfusion. Gastroenterology following. 7. Circumferential sigmoid colon mass measuring 5 cm. 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 General surgery following. The patient is scheduled for a partial colon resection. We will involve oncology on the case. 8. Iron deficiency anemia. Continue iron supplements. 9. C. diff colitis. Enteric precautions. On oral Flagyl. 10. Fluids, electrolytes, and nutrition. Carbohydrate controlled, low- cholesterol diet. Currently NPO for surgery. 11. DVT prophylaxis. Bilateral sequential compression devices. 12. Gastrointestinal prophylaxis. Proton pump inhibitors. 13. Plan. Await surgical intervention [colon resection]. Oncology consult was called. Cardiology consult was called earlier today for cardiac clearance for surgery. Case discussed with Dr. Beltran. Plan of care was explained to the patient's family who was at the bedside. Problems: Subjective 24 Hr Interval Summary Free Text/Dictation Patient scheduled for a partial colectomy today. Complains being anxious. Exam/Review of Systems Vital Signs Vitals Vital Signs Date Time Temp Pulse Resp B/P Pulse Ox O2 Delivery O2 Flow Rate FiO2 09/15/16 16:00 98.0 79 20 153/68 96 09/15/16 04:53 Room Air 09/13/16 19:55 10 Intake and Output 09/14/16 09/14/16 09/15/16 15:00 23:00 07:00 Intake Total 660 ml Balance 660 ml Exam GENERAL: This is a slightly obese male sitting in bed in no apparent distress. HEENT: Head normocephalic and atraumatic. Eyes: Anicteric sclerae. Conjunctivae clear. ENT: Nasal septum is midline. Oral mucosa is dry. NECK: Supple. No JVD noticed. RESPIRATORY: Bilaterally diminished breath sounds. No use of adventitious muscles of respiration. CARDIAC: Regular rate and rhythm with a grade II/ systolic ejection murmur heard at the left sternal border. GASTROINTESTINAL: Abdomen soft, nontender, and nondistended. Bowel sounds positive in all 4 quadrants. GENITOURINARY: Deferred. EXTREMITIES: No cyanosis, no clubbing. Bilateral 2+ ankle edema. Peripheral pulses palpable. NEUROLOGIC: The patient is awake and alert. Oriented x2. Not sure about the date. Moves all 4 extremities. Equal strength in all 4 extremities. Tongue midline. Results Result Diagram: 09/15/16 0715 09/15/16 0715 Results 24 hrs Laboratory Tests Test 09/14/16 18:12 09/14/16 19:57 09/15/16 07:15 09/15/16 07:44 Bedside Glucose 159 124 163 Anion Gap 19 H Basophils # 0.1 Basophils % 1.3 Blood Urea Nitrogen 22 H Calcium Level 9.4 Carbon Dioxide Level 22 Chloride Level 107 Creatinine 1.18 Eosinophils # 0.2 Eosinophils % 3.5 Glucose Level 132 Hematocrit 27.7 L Hemoglobin 7.8 L Lymphocytes # 1.3 Lymphocytes % 18.1 Magnesium Level 2.1 Mean Corpuscular Hemoglobin 19.9 L Mean Corpuscular Hemoglobin Concent 28.2 L Mean Corpuscular Volume 70.8 L Mean Platelet Volume 10.2 Monocytes # 0.5 Monocytes % 6.8 Neutrophils # 4.8 Neutrophils % 69.9 Nucleated Red Blood Cells # 0.0 Nucleated Red Blood Cells % 0.0 Platelet Count 310 Potassium Level 3.9 Red Blood Count 3.91 L Red Cell Distribution Width 25.2 H Sodium Level 144 White Blood Count 6.9 # Test 09/15/16 12:16 Bedside Glucose 140 Medications Medications Current Medications Lorazepam (Ativan) 0.5 mg Q6H PRN IV ANXIETY Last administered on 09/12/16t 03: 17; Admin Dose 0.5 MG; Start 09/11/16 at 18:30 Ondansetron HCl (Zofran Inj) 4 mg Q6H PRN IV NAUSEA AND/OR VOMITING; Start 09/11 at 18:30 Aspirin (Aspirin) 81 mg DAILY PO Last administered on 09/12/16 08:32; Admin Dose 81 MG; Start 09/12/16 at 09:00; Status Future Hold Acetaminophen (Tylenol Tab) 650 mg Q6H PRN PO PAIN LEVEL 1-3 OR FEVER; Start at 18:30 Acetaminophen/ Hydrocodone Bitart ([place] (5/325)) 1 tab Q6H PRN PO PAIN LEVEL 4 -6; Start 09/11/16 at 18:30 Morphine Sulfate (morphine) 2 mg Q4H PRN IV PAIN LEVEL 7-10; Start 09/11/16 at 18:30 Magnesium Hydroxide (Milk Of Mag) 30 ml DAILY PRN PO CONSTIPATION; Start at 18:30 Bisacodyl (Dulcolax) 5 mg DAILY PRN PO CONSTIPATION; Start 09/11/16 at 18:30 Insulin Glargine (Lantus) 8 unit DAILY@20 SC Last administered on 09/14/16 21: 36; Admin Dose 8 UNIT; Start 09/11/16 at 20:00 Atorvastatin Calcium (Lipitor) 20 mg QHS PO Last administered on 09/14/16 21:35 ; Admin Dose 20 MG; Start 09/11/16 at 21:00 Folic Acid (Folic Acid) 1 mg DAILY PO Last administered on 09/14/16 09:09; Admin Dose 1 MG; Start 09/12/16 at 09:00 Hydralazine HCl (Apresoline) 10 mg Q6H PRN IV SBP>180 Last administered on 09:10; Admin Dose 10 MG; Start 09/11/16 at 19:00 Diagnostic Test (Pha) (Accucheck) 1 ea 02 XX ; Start 09/12/16 at 02:00 Miscellaneous Information 1 ea NOTE XX ; Start 09/11/16 at 19:30 Glucose (Glutose) 15 gm Q15M PRN PO DECREASED GLUCOSE; Start 09/11/16 at 19:30 Glucose (Glutose) 22.5 gm Q15M PRN PO DECREASED GLUCOSE; Start 09/11/16 at 19:30 Dextrose (D50w Syringe) 25 ml Q15M PRN IV DECREASED GLUCOSE; Start 09/11/16 at 19:30 Dextrose (D50w Syringe) 50 ml Q15M PRN IV DECREASED GLUCOSE; Start 09/11/16 at 19:30 Glucagon (Glucagen) 1 mg Q15M PRN IM DECREASED GLUCOSE; Start 09/11/16 at 19:30 Glucose (Glutose) 15 gm Q15M PRN BUCCAL DECREASED GLUCOSE; Start 09/11/16 at 19: 30 Pantoprazole (Protonix Iv) 40 mg BID@06,18 IV Last administered on 09/15/16 06 :18; Admin Dose 40 MG; Start 09/12/16 at 11:00 Metronidazole (Flagyl) 500 mg Q8 PO Last administered on 09/15/16 06:18; Admin Dose 500 MG; Start 09/13/16 at 14:00 Losartan Potassium (Cozaar) 50 mg BID PO Last administered on 09/14/16 21:35; Admin Dose 50 MG; Start 09/14/16 at 21:00 Nifedipine (Procardia Xl) 60 mg BID PO Last administered on 09/14/16 21:35; Admin Dose 60 MG; Start 09/14/16 at 21:00 Hydralazine HCl (Apresoline) 25 mg Q8 PO ; Start 09/15/16 at 14:00 SUSAN BRAUN NP Sep 15, 2016 16:24
--- NOTE | 2016-09-15 17:16 | PN ---
DATE: 09/15/2016 The patient is scheduled for sigmoid colon resection for a colonic neoplasm at 25 cm. The patient was sent down to preop holding with isolation status. I questioned why the patient is isolated and was informed that he is C. difficile positive. This is being the case, I have canceled the surgery, resumed his diet. We will reschedule his procedure when his C. difficile resolves. Dictated By: MECCA DE LEON/ABDOULAYE Conf#: [id number] DID#: [id number]
[2016-09-15] MEDS: ATORVASTATIN 20 MG TAB PO SCH (20:50)
[2016-09-15] MEDS: INSULIN GLARGINE [LANtus] 3 ML PEN SC SCH (20:55)
[2016-09-16] VITALS (11 sets, daily range): BP systolic 138–165; BP diastolic 65–74; PULSE 63–75; RESP 16–19
[2016-09-16] MEDS: ACCUCHECK AT 2AM (Patients on SS coverage) XX SCH ×2 (02:00→21:15)
[2016-09-16] MEDS: PANTOPRAZOLE 40 MG INJ IV SCH ×2 (05:57→17:47)
[2016-09-16] MEDS: metroNIDAZOLE 500 MG TAB PO SCH ×3 (05:57→21:11)
--- NOTE | 2016-09-16 06:21 | GILP ---
DATE OF PROCEDURE: 09/13/2016 PROCEDURE: Colonoscopy with biopsies and localization tattoo. PREMEDICATION: Monitored anesthesia care by anesthesiologist. SURGEON: Lulu Kearney MD INSTRUMENT USED: Olympus colonoscope. PREPARATION: Adequate. TECHNIQUE: After informed consent, with the patient/relatives understanding the procedure, its indic ations potential risks and complications, including but not limited to: allergic reaction, bleeding, perforation, infection, missed lesions and after all pertinent questions were answered to the patie nt's satisfaction, the patient/relatives signed the witnessed informed consent. Following this, premedication was administered slowly IV push by under careful cardiovascular and re spiratory monitoring with pulse oximetry, automatic blood pressure and color television console monitor. Once the sedativ e effect was achieved, the patient was placed in the left lateral decubitus position, digital rectal examination was performed. The colonoscope was then introduced and advanced under visual control th roughout all segments of the colon including: the rectum, sigmoid, descending colon, splenic flexure , transverse colon, hepatic flexure, ascending colon and finally reaching the cecum which was clearl y identified by transillumination, finger indentation and the ileocecal valve. Careful examination o f the mucosa of the lower gastrointestinal tract both on insertion as well as withdrawal of the inst rument disclosed the following findings: Rectal Examination: No evidence of perirectal disease, no masses. Colonic Mucosa: There is a large circumferential mass approximately 5 cm in length at 25 cm from in the sigmoid colon. The mass is partially obstructing. The remainder of colonic mucosa unremarkable . The ileocecal valve was clearly identified and instrument was withdrawn. On withdrawal of the in strument, multiple biopsies were obtained of the sigmoid mass, and tattoo markings were applied to t he distal margin of the lesion. IMPRESSION: Large circumferential mass 5 cm in length at 25 cm in the sigmoid colon, partially obstructing, samira rly malignant in nature. Biopsies obtained, localization tattoo applied to the distal margin. PLAN: Surgical evaluation. Clear liquid diet in anticipation of surgical resection. Review pathol ogy as soon as available. Dictated By: LULU KEARNEY MS/ABDOULAYE Conf#: [id number] DID#: [id number]
[2016-09-16] MEDS: INSULIN ASPART [NOVOLOG] 3 ML PEN SC SCH ×7 (08:17→21:00)
[2016-09-16] MEDS: LOSARTAN 50 MG TAB PO SCH ×2 (08:19→21:12)
[2016-09-16] MEDS: FOLIC ACID 1 MG TAB PO SCH (08:19)
[2016-09-16] MEDS: NIFEdipine (XL) 60 MG TAB PO SCH ×2 (08:19→21:11)
[2016-09-16 09:49] LABS: ADD SCAN DIFF NO
[2016-09-16 09:53] LABS: ABNORMAL IP MESSAGE 1; BASOPHIL # 0.1 10^3/ul (0.0-0.1); BASOPHILS % 1.7 % (0.0-2.0); EOSINOPHILS # 0.2 10^3/ul (0.0-0.5); EOSINOPHILS % 2.6 % (0.0-7.0); HEMATOCRIT 32.6 % (42.0-52.0); HEMOGLOBIN 9.8 g/dl (14.0-18.0); LYMPHOCYTES # 1.3 10^3/ul (0.8-2.9); LYMPHOCYTES % 18.6 % (15.0-51.0); MEAN CORPUSCULAR HEMOGLOBIN 21.9 pg (29.0-33.0); MEAN CORPUSCULAR HGB CONC 30.1 g/dl (32.0-37.0); MEAN CORPUSCULAR VOLUME 72.9 fl (82.0-101.0); MONOCYTE # 0.4 10^3/ul (0.3-0.9); MONOCYTES % 6.1 % (0.0-11.0); NEUTROPHIL # 4.8 10^3/ul (1.6-7.5); NEUTROPHILS % 69.4 % (39.0-77.0); PLATELET COUNT 308 10^3/UL (140-415); RED BLOOD COUNT 4.47 10^6/ul (4.70-6.10); RED CELL DISTRIBUTION WIDTH 24.4 % (11.5-14.5); WHITE BLOOD COUNT 6.9 10^3/ul (4.8-10.8)
[2016-09-16 10:01] LABS: POTASSIUM 3.9 mmol/L (3.5-5.1)
[2016-09-16 10:04] LABS: CREATININE 0.99 mg/dl (0.61-1.24)
[2016-09-16 10:05] LABS: CALCIUM 9.4 mg/dl (8.4-10.2)
[2016-09-16 10:06] LABS: MAGNESIUM 2.1 mg/dl (1.7-2.5); PHOSPHORUS 3.3 mg/dl (2.5-4.9)
--- NOTE | 2016-09-16 10:22 | CONS ---
Date/Time of Note Date/Time of Note DATE: 09/16/16 TIME: 10:12 Assessment/Plan Assessment/Plan Chief Complaint/Hosp Course 66-year-old male with history of diabetes, hypertension, and high cholesterol presented with a myriad of symptoms to ED yesterday. During hospitalization patient reports hematochezia 2 episodes. Per son, patient has been having intermittent hematochezia episodes for the last week. He also reports that patient has had intermittent episodes of hematochezia for several months. At bedside patient denies abdominal pain, nausea, vomiting, and diarrhea. Per son , patient reports having colonoscopy a few months ago but unsure of results. Reports polyps but unsure if they were removed. Denies family history of colon cancer and inflammatory bowel disease. Presently son does not consent to colonoscopy. Will order CT abdomen and further evaluate. Problems: Additional Assessment/Plan Rectal Bleeding * Status post colonoscopy 09-13-16: Large circumferential 5 cm mass at 25 cm of sigmoid colon partially obstructing. Biopsies obtained. Touch to the distal margin * S/p bowel resection * Surgery following * Continue clear liquid diet until cleared by surgery * Stool OB, if positive strongly recommend colonoscopy * Monitor H&H every 8 hours, transfuse 2 units for hemoglobin less than 7.5 * Monitor labs * CT abdomen: 1. Slightly irregular sigmoid wall thickening with the suggestion of subtle stranding in the adjacent mesentery, the findings of which may represent colitis the possibility of an underlying neoplasm cannot be excluded. 2. Sigmoid diverticulosis without evidence of diverticulitis. 3. Stool filled large bowel. * C difficile stool test, positive Hypertension * Management per Primary * Cardiology following Diabetes * Management per Primary Acute encephalopathy * Neurology following GI sign off . Consultation available as needed. Further recommendations depend on clinical course Patient seen in collaboration with Dr. Kearney Consultation Date/Type/Reason Admit Date/Time Sep 11, 2016 at 17:05 Type of Consultation: Gastroenterology Referring Provider: SUSAN BRAUN NP 24 HR Interval Summary Free Text/Dictation Hemoglobin stable Repeat stool OB negative GI sign off Exam/Review of Systems Vital Signs Vitals Vital Signs Date Time Temp Pulse Resp B/P Pulse Ox O2 Delivery O2 Flow Rate FiO2 09/16/16 08:20 97.9 69 16 145/65 100 09/15/16 04:53 Room Air 09/13/16 19:55 10 Intake and Output 3/04/2409/15/16 09/16/16 15:00 23:00 07:00 Intake Total 400 ml 1100 ml Balance 400 ml 1100 ml Exam Constitutional: alert, oriented, well developed Psych: nl mood/affect Head: normocephalic Eyes: EOMI, nl conjunctiva, nl lids ENMT: nl external ears & nose, nl lips & teeth, nl nasal mucosa & septum Respiratory: clear to auscultation, normal air movement Cardiovascular: regular rate and rhythm Gastrointestinal: soft, non-tender Musculoskeletal: nl extremities to inspection 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 intact Results Result Diagram: 09/16/1626 09/15/16 0715 Results 24 hrs Laboratory Tests Test 09/15/16 12:16 09/15/16 17:30 09/15/16 20:46 09/16/16 02:30 Bedside Glucose 140 137 141 Stool Occult Blood NEGATIVE Test 09/16/16 07:50 09/16/16 09:26 Bedside Glucose 143 Anion Gap 16 Basophils # 0.1 Basophils % 1.7 Blood Urea Nitrogen 15 Calcium Level 9.4 Carbon Dioxide Level 23 Chloride Level 108 Creatinine 0.99 Eosinophils # 0.2 Eosinophils % 2.6 Glucose Level 156 Hematocrit 32.6 L Hemoglobin 9.8 #L Lymphocytes # 1.3 Lymphocytes % 18.6 Mean Corpuscular Hemoglobin 21.9 L Mean Corpuscular Hemoglobin Concent 30.1 L Mean Corpuscular Volume 72.9 L Mean Platelet Volume 10.0 Monocytes # 0.4 Monocytes % 6.1 Neutrophils # 4.8 Neutrophils % 69.4 Nucleated Red Blood Cells # 0.0 Nucleated Red Blood Cells % 0.0 Platelet Count 308 Potassium Level 3.9 Red Blood Count 4.47 L Red Cell Distribution Width 24.4 H Sodium Level 143 White Blood Count 6.9 Medications Medications Current Medications Lorazepam (Ativan) 0.5 mg Q6H PRN IV ANXIETY Last administered on 09/12/16 03: 17; Admin Dose 0.5 MG; Start 09/11/16 at 18:30 Ondansetron HCl (Zofran Inj) 4 mg Q6H PRN IV NAUSEA AND/OR VOMITING; Start 09/11 at 18:30 Aspirin (Aspirin) 81 mg DAILY PO Last administered on 09/12/16 08:32; Admin Dose 81 MG; Start 09/12/16 at 09:00; Status Future Hold Acetaminophen (Tylenol Tab) 650 mg Q6H PRN PO PAIN LEVEL 1-3 OR FEVER; Start at 18:30 Acetaminophen/ Hydrocodone Bitart ([place] (5/325)) 1 tab Q6H PRN PO PAIN LEVEL 4 -6; Start 09/11/16 at 18:30 Morphine Sulfate (morphine) 2 mg Q4H PRN IV PAIN LEVEL 7-10; Start 09/11/16 at 18:30 Magnesium Hydroxide (Milk Of Mag) 30 ml DAILY PRN PO CONSTIPATION; Start at 18:30 Bisacodyl (Dulcolax) 5 mg DAILY PRN PO CONSTIPATION; Start 09/11/16 at 18:30 Insulin Glargine (Lantus) 8 unit DAILY@20 SC Last administered on 09/15/16 20: 55; Admin Dose 8 UNIT; Start 09/11/16 at 20:00 Atorvastatin Calcium (Lipitor) 20 mg QHS PO Last administered on 09/15/16 20: 50; Admin Dose 20 MG; Start 09/11/16 at 21:00 Folic Acid (Folic Acid) 1 mg DAILY PO Last administered on 09/16/16 08:19; Admin Dose 1 MG; Start 09/12/16 at 09:00 Hydralazine HCl (Apresoline) 10 mg Q6H PRN IV SBP>180 Last administered on 09:10; Admin Dose 10 MG; Start 09/11/16 at 19:00 Diagnostic Test (Pha) (Accucheck) 1 ea 02 XX ; Start 09/12/16 at 02:00 Miscellaneous Information 1 ea NOTE XX ; Start 09/11/16 at 19:30 Glucose (Glutose) 15 gm Q15M PRN PO DECREASED GLUCOSE; Start 09/11/16 at 19:30 Glucose (Glutose) 22.5 gm Q15M PRN PO DECREASED GLUCOSE; Start 09/11/16 at 19:30 Dextrose (D50w Syringe) 25 ml Q15M PRN IV DECREASED GLUCOSE; Start 09/11/16 at 19:30 Dextrose (D50w Syringe) 50 ml Q15M PRN IV DECREASED GLUCOSE; Start 09/11/16 at 19:30 Glucagon (Glucagen) 1 mg Q15M PRN IM DECREASED GLUCOSE; Start 09/11/16 at 19:30 Glucose (Glutose) 15 gm Q15M PRN BUCCAL DECREASED GLUCOSE; Start 09/11/16 at 19: 30 Pantoprazole (Protonix Iv) 40 mg BID@,18 IV Last administered on 09/16/16 05 :57; Admin Dose 40 MG; Start 09/12/16 at 11:00 Metronidazole (Flagyl) 500 mg Q8 PO Last administered on 09/16/16 05:57; Admin Dose 500 MG; Start 09/13/16 at 14:00 Losartan Potassium (Cozaar) 50 mg BID PO Last administered on 09/16/16 08:19; Admin Dose 50 MG; Start 09/14/16 at 21:00 Nifedipine (Procardia Xl) 60 mg BID PO Last administered on 09/16/16 08:19; Admin Dose 60 MG; Start 09/14/16 at 21:00 Hydralazine HCl (Apresoline) 25 mg Q8 PO Last administered on 09/16/16 05:56; Admin Dose 25 MG; Start 09/15/16 at 14:00 HORACIO SALMON Sep 16, 2016 10:22
--- NOTE | 2016-09-16 10:31 | PN ---
DATE: 09/16/2016 Surgery has been canceled. The patient's clinical condition is stable. I will reschedule his sigmo id colon resection when he is C. difficile negative. He has been transfused 2 units of packed cells last night. Followup H and H is pending this morning. Dictated By: MECCA DE LEON/ABDOULAYE Conf#: [id number] DID#: [id number]
--- NOTE | 2016-09-16 11:27 | CONS ---
Date/Time of Note Date/Time of Note DATE: 09/16/16 TIME: 11:13 Assessment/Plan Assessment/Plan Problems: (1) Colon cancer Status: Acute Comment: CT with no signs of distant mets and biopsy confirming adenocarcinoma. -will check preop CEA -agree with surgical resection and the further recommendations after surgical path. Qualifiers: Qualified Code: C18.7 - Malignant neoplasm of sigmoid colon (2) Anemia Status: Acute Comment: Ferritin at 5, will need iron supplementation and PRBC for hgb less than 7-8 reason for GI blood loss is secondary to the sigmoid mass. Qualifiers: Qualified Code: D50.0 - Iron deficiency anemia due to chronic blood loss (3) Stroke Status: Acute Comment: presented with CVA and follow PMD recommendations. Qualifiers: Consultation Date/Type/Reason Admit Date/Time Sep 11, 2016 at 17:05 Date of Consultation: Sep 16, 2016 Type of Consultation: Heme/Onc for Dr Randolph Reason for Consultation colon cancer Referring Provider: SUSAN BRAUN NP Hx of Present Illness Patient 66 y/o admitted for left visual defect and found to have symptoms of hematochezia (chronic) and anemia which resulted in GI workup and CT scan showing sigmoid thickening and colonoscopy with findings of 5 cm length sigmoid mass (partially obstructing). Biopsy from 09/13/16 showed high grade dysplasia and intramucosal adenocarcinoma and has been evaluated by surgery to have resection after medical stabilization. Constitutional: no complaints Eyes: no complaints Respiratory: no complaints Cardiovascular: no complaints Gastrointestinal: pain Genitourinary: no complaints Musculoskeletal: no complaints Skin: no complaints Psychological: no complaints Past Medical History TIA Medical History: diabetes, high cholesterol, hypertension Family History Significant Family History: no pertinent family hx Social History Alcohol Use: none Smoking Status: Former smoker Exam/Review of Systems Vital Signs Vitals Vital Signs Date Time Temp Pulse Resp B/P Pulse Ox O2 Delivery O2 Flow Rate FiO2 09/16/16 08:20 97.9 69 16 145/65 100 09/15/16 04:53 Room Air 09/13/16 19:55 10 Intake and Output 09/15/16 09/15/16 09/16/16 15:00 23:00 07:00 Intake Total 400 ml 1100 ml Balance 400 ml 1100 ml Exam Constitutional: alert, oriented Psych: nl mood/affect Eyes: nl conjunctiva Neck: supple Respiratory: normal air movement Cardiovascular: regular rate and rhythm Gastrointestinal: soft Results Result Diagram: 09/16/16 0926 09/16/16 0926 Results 24 hrs Laboratory Tests Test 09/15/16 12:16 09/15/16 17:30 09/15/16 20:46 09/16/16 02:30 Bedside Glucose 140 137 141 Stool Occult Blood NEGATIVE Test 09/16/16 07:50 09/16/16 09:26 Bedside Glucose 143 Anion Gap 16 Basophils # 0.1 Basophils % 1.7 Blood Urea Nitrogen 15 Calcium Level 9.4 Carbon Dioxide Level 23 Chloride Level 108 Creatinine 0.99 Eosinophils # 0.2 Eosinophils % 2.6 Glucose Level 156 Hematocrit 32.6 L Hemoglobin 9.8 #L Lymphocytes # 1.3 Lymphocytes % 18.6 Magnesium Level 2.1 Mean Corpuscular Hemoglobin 21.9 L Mean Corpuscular Hemoglobin Concent 30.1 L Mean Corpuscular Volume 72.9 L Mean Platelet Volume 10.0 Monocytes # 0.4 Monocytes % 6.1 Neutrophils # 4.8 Neutrophils % 69.4 Nucleated Red Blood Cells # 0.0 Nucleated Red Blood Cells % 0.0 Phosphorus Level 3.3 Platelet Count 308 Potassium Level 3.9 Red Blood Count 4.47 L Red Cell Distribution Width 24.4 H Sodium Level 143 White Blood Count 6.9 Medications Medications Current Medications Lorazepam (Ativan) 0.5 mg Q6H PRN IV ANXIETY Last administered on 09/12/16 03: 17; Admin Dose 0.5 MG; Start 09/11/16 at 18:30 Ondansetron HCl (Zofran Inj) 4 mg Q6H PRN IV NAUSEA AND/OR VOMITING; Start 09/11 at 18:30 Aspirin (Aspirin) 81 mg DAILY PO Last administered on 09/12/16 08:32; Admin Dose 81 MG; Start 09/12/16 at 09:00; Status Future Hold Acetaminophen (Tylenol Tab) 650 mg Q6H PRN PO PAIN LEVEL 1-3 OR FEVER; Start at 18:30 Acetaminophen/ Hydrocodone Bitart ([place] (5/325)) 1 tab Q6H PRN PO PAIN LEVEL 4 -6; Start 09/11/16 at 18:30 Morphine Sulfate (morphine) 2 mg Q4H PRN IV PAIN LEVEL 7-10; Start 09/11/16 at 18:30 Magnesium Hydroxide (Milk Of Mag) 30 ml DAILY PRN PO CONSTIPATION; Start at 18:30 Bisacodyl (Dulcolax) 5 mg DAILY PRN PO CONSTIPATION; Start 09/11/16 at 18:30 Insulin Glargine (Lantus) 8 unit DAILY@20 SC Last administered on 09/15/16 20: 55; Admin Dose 8 UNIT; Start 09/11/16 at 20:00 Atorvastatin Calcium (Lipitor) 20 mg QHS PO Last administered on 09/15/16 20: 50; Admin Dose 20 MG; Start 09/11/16 at 21:00 Folic Acid (Folic Acid) 1 mg DAILY PO Last administered on 09/16/16 08:19; Admin Dose 1 MG; Start 09/12/16 at 09:00 Hydralazine HCl (Apresoline) 10 mg Q6H PRN IV SBP>180 Last administered on 09:10; Admin Dose 10 MG; Start 09/11/16 at 19:00 Diagnostic Test (Pha) (Accucheck) 1 ea 02 XX ; Start 09/12/16 at 02:00 Miscellaneous Information 1 ea NOTE XX ; Start 09/11/16 at 19:30 Glucose (Glutose) 15 gm Q15M PRN PO DECREASED GLUCOSE; Start 09/11/16 at 19:30 Glucose (Glutose) 22.5 gm Q15M PRN PO DECREASED GLUCOSE; Start 09/11/16 at 19:30 Dextrose (D50w Syringe) 25 ml Q15M PRN IV DECREASED GLUCOSE; Start 09/11/16 at 19:30 Dextrose (D50w Syringe) 50 ml Q15M PRN IV DECREASED GLUCOSE; Start 09/11/16 at 19:30 Glucagon (Glucagen) 1 mg Q15M PRN IM DECREASED GLUCOSE; Start 09/11/16 at 19:30 Glucose (Glutose) 15 gm Q15M PRN BUCCAL DECREASED GLUCOSE; Start 09/11/16 at 19: 30 Pantoprazole (Protonix Iv) 40 mg BID@06,18 IV Last administered on 09/16/16 05 :57; Admin Dose 40 MG; Start 09/12/16 at 11:00 Metronidazole (Flagyl) 500 mg Q8 PO Last administered on 09/16/16 05:57; Admin Dose 500 MG; Start 09/13/16 at 14:00 Losartan Potassium (Cozaar) 50 mg BID PO Last administered on 09/16/16 08:19; Admin Dose 50 MG; Start 09/14/16 at 21:00 Nifedipine (Procardia Xl) 60 mg BID PO Last administered on 09/16/16 08:19; Admin Dose 60 MG; Start 09/14/16 at 21:00 Hydralazine HCl (Apresoline) 25 mg Q8 PO Last administered on 09/16/16 05:56; Admin Dose 25 MG; Start 09/15/16 at 14:00 LEXUS CASTELLANOS MD Sep 16, 2016 11:24
--- NOTE | 2016-09-16 13:05 | PN ---
Date/Time of Note Date/Time of Note DATE: 09/16/16 TIME: 13:03 Assessment/Plan VTE Prophylaxis VTE Prophylaxis Intervention: SCD's Lines/Catheters IV [facility] Type [facility]from [facility] Saline Lock Urinary Cath still in place: No Assessment/Plan Chief Complaint/Hosp Course 1. Acute encephalopathy. Largely resolved. Most probably secondary to #2. Aspirin on hold because of anemia. 2. Acute/recent right PRINTER APPRENTICE territory infarcts. Aspirin on hold because of worsening anemia. Continue PT. 3. Accelerated hypertension. The patient will be continued on routine antihypertensives. The patient will be continued on p.r.n. antihypertensives for any systolic blood pressure readings greater than 180 mmHg. 4. Type 2 diabetes mellitus. Hemoglobin A1c 6.1. The patient will be continued on sliding scale insulin along with Lantus insulin and premeal insulin. 5. Dyslipidemia. Fasting lipid panel suboptimal. Continue statins. 6. Microcytic, hypochromic anemia. Secondary to GI bleed and iron deficiency. Continue PPI. S/P blood transfusion. Gastroenterology following. 7. Circumferential sigmoid colon mass measuring 5 cm. 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 General surgery following. The patient is scheduled for a partial colon resection. Oncology on the case. 8. Iron deficiency anemia. Continue iron supplements. 9. C. diff colitis. Enteric precautions. On oral Flagyl. 10. Fluids, electrolytes, and nutrition. Carbohydrate controlled, low- cholesterol diet [soft]. 11. DVT prophylaxis. Bilateral sequential compression devices. 12. Gastrointestinal prophylaxis. Proton pump inhibitors. 13. Plan. Await surgical intervention [colon resection]. Monitoring in-house. Case discussed with Dr. Beltran. Plan of care was explained to the patient's family who was at the bedside. Problems: Subjective 24 Hr Interval Summary Free Text/Dictation Denies any complaints. Exam/Review of Systems Vital Signs Vitals Vital Signs Date Time Temp Pulse Resp B/P Pulse Ox O2 Delivery O2 Flow Rate FiO2 09/16/16 12:24 98.2 68 19 138/65 98 09/15/16 04:53 Room Air 09/13/16 19:55 10 Intake and Output 09/15/16 09/15/16 09/16/16 15:00 23:00 07:00 Intake Total 400 ml 1100 ml Balance 400 ml 1100 ml Exam GENERAL: This is a slightly obese male sitting in bed in no apparent distress. HEENT: Head normocephalic and atraumatic. Eyes: Anicteric sclerae. Conjunctivae clear. ENT: Nasal septum is midline. Oral mucosa is dry. NECK: Supple. No JVD noticed. RESPIRATORY: Bilaterally diminished breath sounds. No use of adventitious muscles of respiration. CARDIAC: Regular rate and rhythm with a grade II/ systolic ejection murmur heard at the left sternal border. GASTROINTESTINAL: Abdomen soft, nontender, and nondistended. Bowel sounds positive in all 4 quadrants. GENITOURINARY: Deferred. EXTREMITIES: No cyanosis, no clubbing. Bilateral 2+ ankle edema. Peripheral pulses palpable. NEUROLOGIC: The patient is awake and alert. Oriented x2. Not sure about the date. Moves all 4 extremities. Equal strength in all 4 extremities. Tongue midline. Results Result Diagram: 09/16/1692509/16/16925 Results 24 hrs Laboratory Tests Test 09/15/16 17:30 09/15/16 20:46 09/16/16 02:30 09/16/16 07:50 Bedside Glucose 137 141 143 Stool Occult Blood NEGATIVE Test 09/16/16 09:26 09/16/16 12:25 Anion Gap 16 Basophils # 0.1 Basophils % 1.7 Blood Urea Nitrogen 15 Calcium Level 9.4 Carbon Dioxide Level 23 Chloride Level 108 Creatinine 0.99 Eosinophils # 0.2 Eosinophils % 2.6 Glucose Level 156 Hematocrit 32.6 L Hemoglobin 9.8 #L Lymphocytes # 1.3 Lymphocytes % 18.6 Magnesium Level 2.1 Mean Corpuscular Hemoglobin 21.9 L Mean Corpuscular Hemoglobin Concent 30.1 L Mean Corpuscular Volume 72.9 L Mean Platelet Volume 10.0 Monocytes # 0.4 Monocytes % 6.1 Neutrophils # 4.8 Neutrophils % 69.4 Nucleated Red Blood Cells # 0.0 Nucleated Red Blood Cells % 0.0 Phosphorus Level 3.3 Platelet Count 308 Potassium Level 3.9 Red Blood Count 4.47 L Red Cell Distribution Width 24.4 H Sodium Level 143 White Blood Count 6.9 Bedside Glucose 154 Medications Medications Current Medications Lorazepam (Ativan) 0.5 mg Q6H PRN IV ANXIETY Last administered on 09/12/16t 03: 17; Admin Dose 0.5 MG; Start 09/11/16 at 18:30 Ondansetron HCl (Zofran Inj) 4 mg Q6H PRN IV NAUSEA AND/OR VOMITING; Start 09/11 at 18:30 Aspirin (Aspirin) 81 mg DAILY PO Last administered on 09/12/16 08:32; Admin Dose 81 MG; Start 09/12/16 at 09:00; Status Future Hold Acetaminophen (Tylenol Tab) 650 mg Q6H PRN PO PAIN LEVEL 1-3 OR FEVER; Start at 18:30 Acetaminophen/ Hydrocodone Bitart ([place] (5/325)) 1 tab Q6H PRN PO PAIN LEVEL 4 -6; Start 09/11/16 at 18:30 Morphine Sulfate (morphine) 2 mg Q4H PRN IV PAIN LEVEL 7-10; Start 09/11/16 at 18:30 Magnesium Hydroxide (Milk Of Mag) 30 ml DAILY PRN PO CONSTIPATION; Start at 18:30 Bisacodyl (Dulcolax) 5 mg DAILY PRN PO CONSTIPATION; Start 09/11/16 at 18:30 Insulin Glargine (Lantus) 8 unit DAILY@20 SC Last administered on 09/15/16 20: 55; Admin Dose 8 UNIT; Start 09/11/16 at 20:00 Atorvastatin Calcium (Lipitor) 20 mg QHS PO Last administered on 09/15/16 20: 50; Admin Dose 20 MG; Start 09/11/16 at 21:00 Folic Acid (Folic Acid) 1 mg DAILY PO Last administered on 09/16/16 08:19; Admin Dose 1 MG; Start 09/12/16 at 09:00 Hydralazine HCl (Apresoline) 10 mg Q6H PRN IV SBP>180 Last administered on 09:10; Admin Dose 10 MG; Start 09/11/16 at 19:00 Diagnostic Test (Pha) (Accucheck) 1 ea 02 XX ; Start 09/12/16 at 02:00 Miscellaneous Information 1 ea NOTE XX ; Start 09/11/16 at 19:30 Glucose (Glutose) 15 gm Q15M PRN PO DECREASED GLUCOSE; Start 09/11/16 at 19:30 Glucose (Glutose) 22.5 gm Q15M PRN PO DECREASED GLUCOSE; Start 09/11/16 at 19:30 Dextrose (D50w Syringe) 25 ml Q15M PRN IV DECREASED GLUCOSE; Start 09/11/16 at 19:30 Dextrose (D50w Syringe) 50 ml Q15M PRN IV DECREASED GLUCOSE; Start 09/11/16 at 19:30 Glucagon (Glucagen) 1 mg Q15M PRN IM DECREASED GLUCOSE; Start 09/11/16 at 19:30 Glucose (Glutose) 15 gm Q15M PRN BUCCAL DECREASED GLUCOSE; Start 09/11/16 at 19: 30 Pantoprazole (Protonix Iv) 40 mg BID@,18 IV Last administered on 09/16/16 05 :57; Admin Dose 40 MG; Start 09/12/16 at 11:00 Metronidazole (Flagyl) 500 mg Q8 PO Last administered on 09/16/16 05:57; Admin Dose 500 MG; Start 09/13/16 at 14:00 Losartan Potassium (Cozaar) 50 mg BID PO Last administered on 09/16/16 08:19; Admin Dose 50 MG; Start 09/14/16 at 21:00 Nifedipine (Procardia Xl) 60 mg BID PO Last administered on 09/16/16 08:19; Admin Dose 60 MG; Start 09/14/16 at 21:00 Hydralazine HCl (Apresoline) 25 mg Q8 PO Last administered on 09/16/16 05:56; Admin Dose 25 MG; Start 09/15/16 at 14:00 SUSAN BRAUN NP Sep 16, 2016 13:05
[2016-09-16] MEDS: INSULIN GLARGINE [LANtus] 3 ML PEN SC SCH (21:12)
[2016-09-16] MEDS: ATORVASTATIN 20 MG TAB PO SCH (21:12)
[2016-09-17] VITALS (13 sets, daily range): BP systolic 132–162; BP diastolic 60–76; PULSE 56–85; RESP 19–20
[2016-09-17] MEDS: metroNIDAZOLE 500 MG TAB PO SCH ×3 (05:26→21:11)
[2016-09-17] MEDS: PANTOPRAZOLE 40 MG INJ IV SCH ×2 (05:26→18:00)
[2016-09-17 07:17] LABS: ADD SCAN DIFF NO
[2016-09-17 07:18] LABS: ABNORMAL IP MESSAGE 1; BASOPHIL # 0.1 10^3/ul (0.0-0.1); BASOPHILS % 1.3 % (0.0-2.0); EOSINOPHILS # 0.3 10^3/ul (0.0-0.5); EOSINOPHILS % 4.1 % (0.0-7.0); HEMATOCRIT 34.2 % (42.0-52.0); HEMOGLOBIN 10.2 g/dl (14.0-18.0); LYMPHOCYTES # 1.6 10^3/ul (0.8-2.9); LYMPHOCYTES % 19.1 % (15.0-51.0); MEAN CORPUSCULAR HEMOGLOBIN 21.9 pg (29.0-33.0); MEAN CORPUSCULAR HGB CONC 29.8 g/dl (32.0-37.0); MEAN CORPUSCULAR VOLUME 73.4 fl (82.0-101.0); MEAN PLATELET VOLUME 10.5 fl (7.4-10.4); MONOCYTE # 0.5 10^3/ul (0.3-0.9); MONOCYTES % 5.8 % (0.0-11.0); NEUTROPHIL # 5.7 10^3/ul (1.6-7.5); PLATELET COUNT 323 10^3/UL (140-415); RED BLOOD COUNT 4.66 10^6/ul (4.70-6.10); WHITE BLOOD COUNT 8.2 10^3/ul (4.8-10.8)
[2016-09-17 07:43] LABS: POTASSIUM 3.8 mmol/L (3.5-5.1)
[2016-09-17 07:46] LABS: CALCIUM 9.5 mg/dl (8.4-10.2); CREATININE 0.95 mg/dl (0.61-1.24)
[2016-09-17 07:48] LABS: PHOSPHORUS 3.6 mg/dl (2.5-4.9)
[2016-09-17] MEDS: FOLIC ACID 1 MG TAB PO SCH (09:16)
[2016-09-17] MEDS: LOSARTAN 50 MG TAB PO SCH ×2 (09:17→21:11)
[2016-09-17] MEDS: NIFEdipine (XL) 60 MG TAB PO SCH ×2 (09:17→21:11)
[2016-09-17] MEDS: INSULIN ASPART [NOVOLOG] 3 ML PEN SC SCH ×7 (09:23→21:00)
--- NOTE | 2016-09-17 13:37 | PN ---
Date/Time of Note Date/Time of Note DATE: 09/17/16 TIME: 13:34 Assessment/Plan VTE Prophylaxis VTE Prophylaxis Intervention: SCD's Lines/Catheters IV [facility]from [facility] Saline Lock Urinary Cath still in place: No Assessment/Plan Chief Complaint/Hosp Course 1. Acute encephalopathy. Largely resolved. Most probably secondary to #2. Aspirin on hold because of anemia. 2. Acute/recent right PARTS CLEANER territory infarcts. Aspirin on hold because of worsening anemia. Continue PT. 3. Accelerated hypertension. The patient will be continued on routine antihypertensives. The patient will be continued on p.r.n. antihypertensives for any systolic blood pressure readings greater than 180 mmHg. 4. Type 2 diabetes mellitus. Hemoglobin A1c 6.1. The patient will be continued on sliding scale insulin along with Lantus insulin and premeal insulin. 5. Dyslipidemia. Fasting lipid panel suboptimal. Continue statins. 6. Microcytic, hypochromic anemia. Secondary to GI bleed and iron deficiency. Continue PPI. S/P blood transfusion. Gastroenterology following. 7. Circumferential sigmoid colon mass measuring 5 cm. 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 General surgery following. The patient is scheduled for a partial colon resection. Oncology on the case. 8. Iron deficiency anemia. Continue iron supplements. 9. C. diff colitis. Enteric precautions. On oral Flagyl. 10. Fluids, electrolytes, and nutrition. Carbohydrate controlled, low- cholesterol diet [soft]. 11. DVT prophylaxis. Bilateral sequential compression devices. 12. Gastrointestinal prophylaxis. Proton pump inhibitors. 13. Plan. Await surgical intervention [colon resection]. Monitoring in-house. Case discussed with Dr. Beltran. Plan of care was explained to the patient's family who was at the bedside. Problems: Subjective 24 Hr Interval Summary Free Text/Dictation Vital signs stable. The patient denies any complaints. Exam/Review of Systems Vital Signs Vitals Vital Signs Date Time Temp Pulse Resp B/P Pulse Ox O2 Delivery O2 Flow Rate FiO2 09/17/16 12:11 66 09/17/16 11:54 98.1 19 143/66 96 09/15/16 04:53 Room Air 09/13/16 19:55 10 Intake and Output 09/16/16 09/16/16 09/17/16 15:00 23:00 07:00 Intake Total 700 ml Balance 700 ml Exam GENERAL: This is a slightly obese male sitting in bed in no apparent distress. HEENT: Head normocephalic and atraumatic. Eyes: Anicteric sclerae. Conjunctivae clear. ENT: Nasal septum is midline. Oral mucosa is dry. NECK: Supple. No JVD noticed. RESPIRATORY: Bilaterally diminished breath sounds. No use of adventitious muscles of respiration. CARDIAC: Regular rate and rhythm with a grade II/ systolic ejection murmur heard at the left sternal border. GASTROINTESTINAL: Abdomen soft, nontender, and nondistended. Bowel sounds positive in all 4 quadrants. GENITOURINARY: Deferred. EXTREMITIES: No cyanosis, no clubbing. Bilateral 2+ ankle edema. Peripheral pulses palpable. NEUROLOGIC: The patient is awake and alert. Oriented x2-3. Not sure about the date. Moves all 4 extremities. Equal strength in all 4 extremities. Tongue midline. Results Result Diagram: 09/17/16 0558 09/17/16 0558 Results 24 hrs Laboratory Tests Test 09/16/16 17:45 09/16/16 21:10 09/17/16 05:58 09/17/16 09:14 Bedside Glucose 101 135 196 Anion Gap 17 H Basophils # 0.1 Basophils % 1.3 Blood Urea Nitrogen 16 Calcium Level 9.5 Carbon Dioxide Level 22 Chloride Level 107 Creatinine 0.95 Eosinophils # 0.3 Eosinophils % 4.1 Glucose Level 128 Hematocrit 34.2 L Hemoglobin 10.2 L Lymphocytes # 1.6 Lymphocytes % 19.1 Magnesium Level 2.0 Mean Corpuscular Hemoglobin 21.9 L Mean Corpuscular Hemoglobin Concent 29.8 L Mean Corpuscular Volume 73.4 L Mean Platelet Volume 10.5 H Monocytes # 0.5 Monocytes % 5.8 Neutrophils # 5.7 Neutrophils % 69.0 Nucleated Red Blood Cells # 0.0 Nucleated Red Blood Cells % 0.0 Phosphorus Level 3.6 Platelet Count 323 Potassium Level 3.8 Red Blood Count 4.66 L Red Cell Distribution Width 25.0 H Sodium Level 142 White Blood Count 8.2 Test 09/17/16 11:50 Bedside Glucose 163 Medications Medications Current Medications Lorazepam (Ativan) 0.5 mg Q6H PRN IV ANXIETY Last administered on 09/12/16t 03: 17; Admin Dose 0.5 MG; Start 09/11/16 at 18:30 Ondansetron HCl (Zofran Inj) 4 mg Q6H PRN IV NAUSEA AND/OR VOMITING; Start 09/11 at 18:30 Aspirin (Aspirin) 81 mg DAILY PO Last administered on 09/12/16 08:32; Admin Dose 81 MG; Start 09/12/16 at 09:00; Status Future Hold Acetaminophen (Tylenol Tab) 650 mg Q6H PRN PO PAIN LEVEL 1-3 OR FEVER; Start at 18:30 Acetaminophen/ Hydrocodone Bitart ([place] (5/325)) 1 tab Q6H PRN PO PAIN LEVEL 4 -6; Start 09/11/16 at 18:30 Morphine Sulfate (morphine) 2 mg Q4H PRN IV PAIN LEVEL 7-10; Start 09/11/16 at 18:30 Magnesium Hydroxide (Milk Of Mag) 30 ml DAILY PRN PO CONSTIPATION; Start at 18:30 Bisacodyl (Dulcolax) 5 mg DAILY PRN PO CONSTIPATION; Start 09/11/16 at 18:30 Insulin Glargine (Lantus) 8 unit DAILY@20 SC Last administered on 09/16/16 21: 12; Admin Dose 8 UNIT; Start 09/11/16 at 20:00 Atorvastatin Calcium (Lipitor) 20 mg QHS PO Last administered on 09/16/16 21: 12; Admin Dose 20 MG; Start 09/11/16 at 21:00 Folic Acid (Folic Acid) 1 mg DAILY PO Last administered on 09/17/16 09:16; Admin Dose 1 MG; Start 09/12/16 at 09:00 Hydralazine HCl (Apresoline) 10 mg Q6H PRN IV SBP>180 Last administered on 09:10; Admin Dose 10 MG; Start 09/11/16 at 19:00 Diagnostic Test (Pha) (Accucheck) 1 ea 02 XX ; Start 09/12/16 at 02:00 Miscellaneous Information 1 ea NOTE XX ; Start 09/11/16 at 19:30 Glucose (Glutose) 15 gm Q15M PRN PO DECREASED GLUCOSE; Start 09/11/16 at 19:30 Glucose (Glutose) 22.5 gm Q15M PRN PO DECREASED GLUCOSE; Start 09/11/16 at 19:30 Dextrose (D50w Syringe) 25 ml Q15M PRN IV DECREASED GLUCOSE; Start 09/11/16 at 19:30 Dextrose (D50w Syringe) 50 ml Q15M PRN IV DECREASED GLUCOSE; Start 09/11/16 at 19:30 Glucagon (Glucagen) 1 mg Q15M PRN IM DECREASED GLUCOSE; Start 09/11/16 at 19:30 Glucose (Glutose) 15 gm Q15M PRN BUCCAL DECREASED GLUCOSE; Start 09/11/16 at 19: 30 Pantoprazole (Protonix Iv) 40 mg BID@06,18 IV Last administered on 09/17/16 05 :26; Admin Dose 40 MG; Start 09/12/16 at 11:00 Metronidazole (Flagyl) 500 mg Q8 PO Last administered on 09/17/16 05:26; Admin Dose 500 MG; Start 09/13/16 at 14:00 Losartan Potassium (Cozaar) 50 mg BID PO Last administered on 09/17/16 09:17; Admin Dose 50 MG; Start 09/14/16 at 21:00 Nifedipine (Procardia Xl) 60 mg BID PO Last administered on 09/17/16 09:17; Admin Dose 60 MG; Start 09/14/16 at 21:00 Hydralazine HCl 25 mg 25 mg Q8 PO Last administered on 09/17/16 05:26; Admin Dose 25 MG; Start 09/15/16 at 14:00 Ferric Sodium Gluconate Complex/ Sodium Chloride (Ferrlecit/NS) 110 ml @ 100 mls/hr Q24H IVPB ; Start 09/17/16 at 14:00; Stop 09/19/16 at 15:05 SUSAN BRAUN NP Sep 17, 2016 13:36
[2016-09-17] MEDS: SOD FERRIC GLUC COMPLX 125 MG in SOD CHLORIDE 0.9% 100 ML IVPB SCH (14:05)
--- NOTE | 2016-09-17 14:23 | PN ---
DATE: 09/17/2016 The patient is clinically stable. His hematocrit is 34.2 and his white count is 8200. Clinically, he is doing quite well. We are waiting for medical clearance, so we might proceed and arrange for sigmoid colon resection as was originally scheduled. Dictated By: MECCA DE LEON/ABDOULAYE Conf#: [id number] DID#: [id number]
[2016-09-17] MEDS: ATORVASTATIN 20 MG TAB PO SCH (21:11)
[2016-09-17] MEDS: INSULIN GLARGINE [LANtus] 3 ML PEN SC SCH (21:15)
[2016-09-17] MEDS: ACCUCHECK AT 2AM (Patients on SS coverage) XX SCH (21:22)
[2016-09-18] VITALS (11 sets, daily range): BP systolic 146–158; BP diastolic 67–74; PULSE 65–84; RESP 18–20
[2016-09-18] MEDS: PANTOPRAZOLE 40 MG INJ IV SCH (05:42)
[2016-09-18] MEDS: metroNIDAZOLE 500 MG TAB PO SCH ×3 (05:42→22:00)
[2016-09-18] MEDS: INSULIN ASPART [NOVOLOG] 3 ML PEN SC SCH ×7 (08:00→20:32)
[2016-09-18 08:36] LABS: ADD SCAN DIFF NO
[2016-09-18 08:37] LABS: ABNORMAL IP MESSAGE 1; BASOPHIL # 0.1 10^3/ul (0.0-0.1); BASOPHILS % 1.2 % (0.0-2.0); EOSINOPHILS # 0.2 10^3/ul (0.0-0.5); EOSINOPHILS % 3.2 % (0.0-7.0); HEMATOCRIT 35.1 % (42.0-52.0); HEMOGLOBIN 10.5 g/dl (14.0-18.0); LYMPHOCYTES # 1.1 10^3/ul (0.8-2.9); MEAN CORPUSCULAR HEMOGLOBIN 22.1 pg (29.0-33.0); MEAN CORPUSCULAR HGB CONC 29.9 g/dl (32.0-37.0); MEAN CORPUSCULAR VOLUME 73.7 fl (82.0-101.0); MEAN PLATELET VOLUME 10.7 fl (7.4-10.4); MONOCYTE # 0.6 10^3/ul (0.3-0.9); MONOCYTES % 7.6 % (0.0-11.0); NEUTROPHIL # 5.5 10^3/ul (1.6-7.5); NEUTROPHILS % 73.5 % (39.0-77.0); PLATELET COUNT 310 10^3/UL (140-415); RED BLOOD COUNT 4.76 10^6/ul (4.70-6.10); RED CELL DISTRIBUTION WIDTH 25.4 % (11.5-14.5); WHITE BLOOD COUNT 7.5 10^3/ul (4.8-10.8)
[2016-09-18] MEDS: LOSARTAN 50 MG TAB PO SCH ×2 (08:44→20:31)
[2016-09-18] MEDS: FOLIC ACID 1 MG TAB PO SCH (08:44)
[2016-09-18] MEDS: NIFEdipine (XL) 60 MG TAB PO SCH ×2 (08:44→20:31)
[2016-09-18 09:02] LABS: MAGNESIUM 1.9 mg/dl (1.7-2.5); PHOSPHORUS 3.2 mg/dl (2.5-4.9)
[2016-09-18 09:04] LABS: POTASSIUM 3.5 mmol/L (3.5-5.1)
[2016-09-18 09:07] LABS: CREATININE 0.87 mg/dl (0.61-1.24)
[2016-09-18 09:08] LABS: CALCIUM 9.3 mg/dl (8.4-10.2)
[2016-09-18] MEDS: SOD FERRIC GLUC COMPLX 125 MG in SOD CHLORIDE 0.9% 100 ML IVPB SCH (13:04)
--- NOTE | 2016-09-18 15:47 | CONS ---
DATE OF ADMISSION: 09/11/2016 DATE OF CONSULTATION: 09/18/2016 TYPE OF CONSULTATION: Infectious Disease. REASON FOR CONSULTATION: Antibiotic management. HISTORY OF PRESENT ILLNESS: Jarad Amezcua is an unfortunate 66-year-old male who was brought in by family with multiple complaints of blurred vision, dizziness and confusion. His past problem s include: 1. History of transient ischemic attack. 2. Adult-onset diabetes mellitus. 3. Neurocysticercosis. 4. Hypertension. 5. Dyslipidemia. 6. Seizure disorder in the remote past. The patient comes into the emergency room with blurred vis ion that started about 2 weeks ago. There is no double vision. There is no obvious bleeding. No n ausea, vomiting, constipation or diarrhea. In the emergency room, his H and H was 7.[address] scan of the brain showed a 4 cm area of decreased attenuation in the right posterior occipital lo be, without definitive mass effect most consistent with subacute or chronic infarct. CT also reveal ed chronic left lacunar infarct. The patient also has essential hypertension which is not mentioned . HOSPITAL COURSE: On admission, his white count was 7.1, H and H of 7.7 and 27.5, platelet count 343 ,000. BUN and creatinine 17/0.79, glucose 114, so he was admitted with acute encephalopathy with link bacute to chronic infarct in the right posterior occipital lobe. HOSPITAL COURSE: The patient was seen by a number of different physicians. He was seen by Dr. Suzanne haley in surgical consultation. The patient had an episode of hematochezia and significant anemia. A colonoscopy was done which showed a bulky neoplasm at 25 cm in the sigmoid colon. CT scan did not s how any other abnormalities. Surgical consultation was requested. The patient will require sigmoid resection and possibility of a temporary colostomy. The patient was seen in consultation by gastro enterology as well. The patient was noted to have C. difficile on the 7th and was started on metron idazole. A CT scan of the abdomen and pelvis showed slightly irregular, sigmoid wall thickening wit h suggestion of subtle stranding in the adjacent mesentery which may represent colitis and possibili ty of underlying of neoplasm cannot be excluded. Presently, the patient has acute encephalitis larg piter resolved. He had acute recent right SISAL PICKER territory infarcts. Aspirin is on hold because of wors ening anemia and accelerated hypertension. He has pathology in the sigmoid colon that is positive f or high-grade dysplasia with mucosal adenocarcinoma. The patient is on oral Flagyl. PAST MEDICAL HISTORY: Operations as outlined. FAMILY HISTORY: Noncontributory. SOCIAL HISTORY: He does not smoke, drink or abuse drugs. ALLERGIES: NONE TO PENICILLIN, SULFA OR FOODS. MEDICATIONS: Per chart. REVIEW OF SYSTEMS: Noncontributory. PHYSICAL EXAMINATION: GENERAL: The patient is a somewhat obese male who is awake. He is able to follow commands and he is in no acute distress. VITAL SIGNS: Stable. He is afebrile. SKIN: Without generalized rash. HEENT: Within normal limits. NECK: Supple. LYMPH NODES: None palpable. CHEST: Decreased breath sounds at the bases. HEART: Without murmur or gallop. ABDOMEN: Soft, nontender, without organosplenomegaly or masses. EXTREMITIES: Without cyanosis, clubbing, or edema. RECTAL AND GENITAL: Deferred. NEUROLOGIC: Currently, the patient had recent right cerebral artery infarct. He is somewhat confus ed but still oriented, not sure about the dates. No other focal neurological abnormalities. IMPRESSION AND PLAN: The patient has C. difficile but also has a colonic carcinoma. We will check with the nurses and as soon as his diarrhea has ceased. We will move forward with his surgery. I w ill dictate my findings to the hospitalist and to Dr. Dubon. Dictated By: ROXANN WHITLEY MD, JD/ABDOULAYE Conf#: [id number] DID#: [id number]
--- NOTE | 2016-09-18 16:54 | CONS ---
Date/Time of Note Date/Time of Note DATE: 09/18/16 TIME: 16:48 Assessment/Plan Assessment/Plan Chief Complaint/Hosp Course 66 up with adenocarcinoma of the sigmoid colon. #Colon cancer- CT with no signs of distant mets and biopsy confirming adenocarcinoma. Preop CEA is 1.4 -agree with surgical resection and the further recommendations after surgical path. # Anemia-secondary to iron deficiency. Ferritin at 5, will need iron supplementation and PRBC for hgb less than 7-8 reason for GI blood loss is secondary to the sigmoid mass. -will continue Ferrlecit 125mg IV x 5 days # CVA- brain MRI demonstrates acute/recent right INSURANCE ACCOUNT REPRESENTATIVE territory infarcts as well as a chronic left basal ganglia lacunar infarct. -ASA on hold for worsening anemia -management per primary team # Cdiff -continue treatment per Id -once his diarrhea improves can proceed with surgery Approximately 40 min were spent at patient's bedside and in coordination of his care Problems: Consultation Date/Type/Reason Admit Date/Time Sep 11, 2016 at 17:05 Initial Consult Date 09/16/16 Type of Consultation: Heme/Onc Reason for Consultation colon ca Referring Provider: SUSAN BRAUN FIRER LOCOMOTIVE 24 HR Interval Summary Free Text/Dictation pt has C diff and is still having loose stools Constitutional: no complaints Exam/Review of Systems Vital Signs Vitals Vital Signs Date Time Temp Pulse Resp B/P Pulse Ox O2 Delivery O2 Flow Rate FiO2 09/18/16 16:36 84 09/18/16 15:55 97.9 18 150/69 96 09/15/16 04:53 Room Air Intake and Output 09/17/16 09/17/16 09/18/16 15:00 23:00 07:00 Intake Total 600 ml 300 ml Balance 600 ml 300 ml Exam Constitutional: alert, oriented Psych: nl mood/affect, no complaints Head: normocephalic Eyes: nl conjunctiva ENMT: nl external ears & nose Neck: non-tender, supple Cardiovascular: nl pulses, regular rate and rhythm Gastrointestinal: soft Musculoskeletal: nl extremities to inspection, nl gait and stance Extremities: normal pulses Results Result Diagram: 09/18/16 0715 09/18/16 0715 Results 24 hrs Laboratory Tests Test 09/17/16 17:17 09/17/16 21:10 09/18/16 07:15 09/18/16 08:23 Bedside Glucose 154 126 127 Anion Gap 17 H Basophils # 0.1 Basophils % 1.2 Blood Urea Nitrogen 16 Calcium Level 9.3 Carbon Dioxide Level 21 Chloride Level 107 Creatinine 0.87 Eosinophils # 0.2 Eosinophils % 3.2 Glucose Level 103 Hematocrit 35.1 L Hemoglobin 10.5 L Lymphocytes # 1.1 Lymphocytes % 14.0 L Magnesium Level 1.9 Mean Corpuscular Hemoglobin 22.1 L Mean Corpuscular Hemoglobin Concent 29.9 L Mean Corpuscular Volume 73.7 L Mean Platelet Volume 10.7 H Monocytes # 0.6 Monocytes % 7.6 Neutrophils # 5.5 Neutrophils % 73.5 Nucleated Red Blood Cells # 0.0 Nucleated Red Blood Cells % 0.0 Phosphorus Level 3.2 Platelet Count 310 Potassium Level 3.5 Red Blood Count 4.76 Red Cell Distribution Width 25.4 H Sodium Level 141 White Blood Count 7.5 Test 09/18/16 12:44 Bedside Glucose 96 Medications Medications Current Medications Lorazepam (Ativan) 0.5 mg Q6H PRN IV ANXIETY Last administered on 09/12/16 03: 17; Admin Dose 0.5 MG; Start 09/11/16 at 18:30 Ondansetron HCl (Zofran Inj) 4 mg Q6H PRN IV NAUSEA AND/OR VOMITING; Start 09/11 at 18:30 Aspirin (Aspirin) 81 mg DAILY PO Last administered on 09/12/16 08:32; Admin Dose 81 MG; Start 09/12/16 at 09:00; Status Future Hold Acetaminophen (Tylenol Tab) 650 mg Q6H PRN PO PAIN LEVEL 1-3 OR FEVER; Start at 18:30 Acetaminophen/ Hydrocodone Bitart ([place] (5/325)) 1 tab Q6H PRN PO PAIN LEVEL 4 -6; Start 09/11/16 at 18:30 Morphine Sulfate (morphine) 2 mg Q4H PRN IV PAIN LEVEL 7-10; Start 09/11/16 at 18:30 Magnesium Hydroxide (Milk Of Mag) 30 ml DAILY PRN PO CONSTIPATION; Start at 18:30 Bisacodyl (Dulcolax) 5 mg DAILY PRN PO CONSTIPATION; Start 09/11/16 at 18:30 Insulin Glargine (Lantus) 8 unit DAILY@20 SC Last administered on 09/17/16 21: 15; Admin Dose 8 UNIT; Start 09/11/16 at 20:00 Atorvastatin Calcium (Lipitor) 20 mg QHS PO Last administered on 09/17/16 21: 11; Admin Dose 20 MG; Start 09/11/16 at 21:00 Folic Acid (Folic Acid) 1 mg DAILY PO Last administered on 09/18/16 08:44; Admin Dose 1 MG; Start 09/12/16 at 09:00 Hydralazine HCl (Apresoline) 10 mg Q6H PRN IV SBP>180 Last administered on 09:10; Admin Dose 10 MG; Start 09/11/16 at 19:00 Diagnostic Test (Pha) (Accucheck) 1 ea 02 XX ; Start 09/12/16 at 02:00 Miscellaneous Information 1 ea NOTE XX ; Start 09/11/16 at 19:30 Glucose (Glutose) 15 gm Q15M PRN PO DECREASED GLUCOSE; Start 09/11/16 at 19:30 Glucose (Glutose) 22.5 gm Q15M PRN PO DECREASED GLUCOSE; Start 09/11/16 at 19:30 Dextrose (D50w Syringe) 25 ml Q15M PRN IV DECREASED GLUCOSE; Start 09/11/16 at 19:30 Dextrose (D50w Syringe) 50 ml Q15M PRN IV DECREASED GLUCOSE; Start 09/11/16 at 19:30 Glucagon (Glucagen) 1 mg Q15M PRN IM DECREASED GLUCOSE; Start 09/11/16 at 19:30 Glucose (Glutose) 15 gm Q15M PRN BUCCAL DECREASED GLUCOSE; Start 09/11/16 at 19: 30 Metronidazole (Flagyl) 500 mg Q8 PO Last administered on 09/18/16 13:04; Admin Dose 500 MG; Start 09/13/16 at 14:00 Losartan Potassium (Cozaar) 50 mg BID PO Last administered on 09/18/16 08:44; Admin Dose 50 MG; Start 09/14/16 at 21:00 Nifedipine (Procardia Xl) 60 mg BID PO Last administered on 09/18/16 08:44; Admin Dose 60 MG; Start 09/14/16 at 21:00 Hydralazine HCl 25 mg 25 mg Q8 PO Last administered on 09/18/16 13:04; Admin Dose 25 MG; Start 09/15/16 at 14:00 Ferric Sodium Gluconate Complex/ Sodium Chloride (Ferrlecit/NS) 110 ml @ 100 mls/hr Q24H IVPB Last administered on 09/18/16t 13:04; Admin Dose 100 MLS/HR; Start 09/17/16 at 14:00; Stop 09/19/16 at 15:05 Pantoprazole (Protonix Tab) 40 mg BID@06,18 PO ; Start 09/18/16 at 18:00 ROBB PICKARD M.D. Sep 18, 2016 16:54
--- NOTE | 2016-09-18 17:20 | PN ---
Date/Time of Note Date/Time of Note DATE: 09/18/16 TIME: 17:17 Assessment/Plan VTE Prophylaxis VTE Prophylaxis Intervention: SCD's Lines/Catheters IV Catheter Type (from Nrsg): Saline Lock Urinary Cath still in place: No Assessment/Plan Chief Complaint/Hosp Course Assessment and plan 1. Acute encephalopathy. Improved at this time. Will monitor 2. 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 Antiplatelet therapy on hold due to worsening anemia. Continue physical therapy. 3. Accelerated hypertension. Continue antihypertensives and adjust as needed 4. Type 2 diabetes. Patient noted with A1c of 6.1. Insulin regimen resumed 5. Dyslipidemia. Continue on statin medication 6. Microcytic hypochromic anemia. Likely secondary to GI bleed and iron deficiency. Continue on iron supplement. GI following. Monitor H&H 7. Circumferential sigmoid colon mass measuring 5 cm. Plan for surgical intervention and resection of this once C. difficile colitis resolved. Follow- up 8. C. difficile colitis. Continue on antibiotics per ID recommendations. DVT Provox: SCDs GERD prophylaxis: PP Disposition and plan: plan for surgical intervention for colon mass after C. difficile colitis resolved. Follow-up with ID recommendations. Discussed plan of care with Dr. Paez Problems: Subjective 24 Hr Interval Summary Free Text/Dictation Denies any pain. Appears comfortable at present Exam/Review of Systems Vital Signs Vitals Vital Signs Date Time Temp Pulse Resp B/P Pulse Ox O2 Delivery O2 Flow Rate FiO2 09/18/16 16:36 84 09/18/16 15:55 97.9 18 150/69 96 09/15/16 04:53 Room Air Intake and Output 09/17/16 09/17/16 09/18/16 15:00 23:00 07:00 Intake Total 600 ml 300 ml Balance 600 ml 300 ml Exam General: No apparent distress. Appears comfortable Eyes: Pupils equal round. Neck: Supple nontender, no JVD Cardiac: Regular rate. Pulmonary: No adventitious lung sounds auscultate GI: Soft nontender non-distended Extremities: No edema noted bilateral lower extremities Skin: Clean dry and intact Neurologic: Alert and oriented 3 Results Result Diagram: 09/18/16 0715 09/18/16 0715 Results 24 hrs Laboratory Tests Test 09/17/16 21:10 09/18/16 07:15 09/18/16 08:23 09/18/16 12:44 Bedside Glucose 126 127 96 Anion Gap 17 H Basophils # 0.1 Basophils % 1.2 Blood Urea Nitrogen 16 Calcium Level 9.3 Carbon Dioxide Level 21 Chloride Level 107 Creatinine 0.87 Eosinophils # 0.2 Eosinophils % 3.2 Glucose Level 103 Hematocrit 35.1 L Hemoglobin 10.5 L Lymphocytes # 1.1 Lymphocytes % 14.0 L Magnesium Level 1.9 Mean Corpuscular Hemoglobin 22.1 L Mean Corpuscular Hemoglobin Concent 29.9 L Mean Corpuscular Volume 73.7 L Mean Platelet Volume 10.7 H Monocytes # 0.6 Monocytes % 7.6 Neutrophils # 5.5 Neutrophils % 73.5 Nucleated Red Blood Cells # 0.0 Nucleated Red Blood Cells % 0.0 Phosphorus Level 3.2 Platelet Count 310 Potassium Level 3.5 Red Blood Count 4.76 Red Cell Distribution Width 25.4 H Sodium Level 141 White Blood Count 7.5 Medications Medications Current Medications Lorazepam (Ativan) 0.5 mg Q6H PRN IV ANXIETY Last administered on 09/12/16 03: 17; Admin Dose 0.5 MG; Start 09/11/16 at 18:30 Ondansetron HCl (Zofran Inj) 4 mg Q6H PRN IV NAUSEA AND/OR VOMITING; Start 09/11 at 18:30 Aspirin (Aspirin) 81 mg DAILY PO Last administered on 09/12/16 08:32; Admin Dose 81 MG; Start 09/12/16 at 09:00; Status Future Hold Acetaminophen (Tylenol Tab) 650 mg Q6H PRN PO PAIN LEVEL 1-3 OR FEVER; Start at 18:30 Acetaminophen/ Hydrocodone Bitart ([place] (5/325)) 1 tab Q6H PRN PO PAIN LEVEL 4 -6; Start 09/11/16 at 18:30 Morphine Sulfate (morphine) 2 mg Q4H PRN IV PAIN LEVEL 7-10; Start 09/11/16 at 18:30 Magnesium Hydroxide (Milk Of Mag) 30 ml DAILY PRN PO CONSTIPATION; Start at 18:30 Bisacodyl (Dulcolax) 5 mg DAILY PRN PO CONSTIPATION; Start 09/11/16 at 18:30 Insulin Glargine (Lantus) 8 unit DAILY@20 SC Last administered on 09/17/16 21: 15; Admin Dose 8 UNIT; Start 09/11/16 at 20:00 Atorvastatin Calcium (Lipitor) 20 mg QHS PO Last administered on 09/17/16 21: 11; Admin Dose 20 MG; Start 09/11/16 at 21:00 Folic Acid (Folic Acid) 1 mg DAILY PO Last administered on 09/18/16 08:44; Admin Dose 1 MG; Start 09/12/16 at 09:00 Hydralazine HCl (Apresoline) 10 mg Q6H PRN IV SBP>180 Last administered on 09:10; Admin Dose 10 MG; Start 09/11/16 at 19:00 Diagnostic Test (Pha) (Accucheck) 1 ea 02 XX ; Start 09/12/16 at 02:00 Miscellaneous Information 1 ea NOTE XX ; Start 09/11/16 at 19:30 Glucose (Glutose) 15 gm Q15M PRN PO DECREASED GLUCOSE; Start 09/11/16 at 19:30 Glucose (Glutose) 22.5 gm Q15M PRN PO DECREASED GLUCOSE; Start 09/11/16 at 19:30 Dextrose (D50w Syringe) 25 ml Q15M PRN IV DECREASED GLUCOSE; Start 09/11/16 at 19:30 Dextrose (D50w Syringe) 50 ml Q15M PRN IV DECREASED GLUCOSE; Start 09/11/16 at 19:30 Glucagon (Glucagen) 1 mg Q15M PRN IM DECREASED GLUCOSE; Start 09/11/16 at 19:30 Glucose (Glutose) 15 gm Q15M PRN BUCCAL DECREASED GLUCOSE; Start 09/11/16 at 19: 30 Metronidazole (Flagyl) 500 mg Q8 PO Last administered on 09/18/16 13:04; Admin Dose 500 MG; Start 09/13/16 at 14:00 Losartan Potassium (Cozaar) 50 mg BID PO Last administered on 09/18/16 08:44; Admin Dose 50 MG; Start 09/14/16 at 21:00 Nifedipine (Procardia Xl) 60 mg BID PO Last administered on 09/18/16 08:44; Admin Dose 60 MG; Start 09/14/16 at 21:00 Hydralazine HCl 25 mg 25 mg Q8 PO Last administered on 09/18/16 13:04; Admin Dose 25 MG; Start 09/15/16 at 14:00 Ferric Sodium Gluconate Complex/ Sodium Chloride (Ferrlecit/NS) 110 ml @ 100 mls/hr Q24H IVPB Last administered on 09/18/16t 13:04; Admin Dose 100 MLS/HR; Start 09/17/16 at 14:00; Stop 09/19/16 at 15:05 Pantoprazole (Protonix Tab) 40 mg BID@06,18 PO ; Start 09/18/16 at 18:00 CARLOS SOUZA Sep 18, 2016 17:19
[2016-09-18] MEDS: PANTOPRAZOLE (EC) 40 MG TAB PO SCH (17:42)
[2016-09-18] MEDS: ATORVASTATIN 20 MG TAB PO SCH (20:31)
[2016-09-18] MEDS: INSULIN GLARGINE [LANtus] 3 ML PEN SC SCH (20:32)
[2016-09-19] VITALS (10 sets, daily range): BP systolic 137–169; BP diastolic 72–78; PULSE 70–95; RESP 16–20
[2016-09-19] MEDS: ACCUCHECK AT 2AM (Patients on SS coverage) XX SCH (02:00)
[2016-09-19] MEDS: PANTOPRAZOLE (EC) 40 MG TAB PO SCH ×2 (05:35→17:27)
[2016-09-19] MEDS: metroNIDAZOLE 500 MG TAB PO SCH ×3 (05:36→21:32)
[2016-09-19] MEDS: INSULIN ASPART [NOVOLOG] 3 ML PEN SC SCH ×7 (08:00→20:52)
[2016-09-19] MEDS: LOSARTAN 50 MG TAB PO SCH ×2 (08:31→21:33)
[2016-09-19] MEDS: FOLIC ACID 1 MG TAB PO SCH (08:31)
[2016-09-19] MEDS: NIFEdipine (XL) 60 MG TAB PO SCH ×2 (08:31→21:33)
--- NOTE | 2016-09-19 10:56 | PN ---
DATE: 09/19/2016 The patient's diarrhea is much improved. He has only had 1 slightly formed bowel movement this morn ing and he is asymptomatic. PLAN: Stat C. diff toxin assay is pending. If this is negative, we will proceed with scheduled sig moid colon resection tomorrow; again, pending final medical clearance. Dictated By: MECCA DE LEON/ABDOULAYE Conf#: [id number] DID#: [id number]
[2016-09-19] MEDS: SOD FERRIC GLUC COMPLX 125 MG in SOD CHLORIDE 0.9% 100 ML IVPB SCH (14:05)
--- NOTE | 2016-09-19 16:45 | PN ---
DATE: SUBJECTIVE: No events overnight. The patient is lying comfortably in bed, sleeping No fevers. No labs this morning. ANTIMICROBIALS: Patient is on Flagyl. PHYSICAL EXAMINATION: GENERAL: This is well-developed, elderly man who is in no distress. HEENT: Head atraumatic, normocephalic. Sclerae anicteric. Buccal mucosa dry. NECK: Supple, trachea midline. CHEST: Rise symmetrical. Breath sounds diminished to bases. HEART: S1, S2. ABDOMEN: Soft, bowel tones present. EXTREMITIES: Without cyanosis. ASSESSMENT: 1. Clostridium difficile colitis with resolving diarrhea. 2. Colon carcinoma; no signs of distant metastases per CT. 3. Anemia. 4. History of cerebrovascular accident. 5. Diabetes. PLAN: Patient remains stable, diarrhea resolving. He is followed by multiple consultants. Pending colon resection.. Dictated By: DI HADLEY EXPLOSIVE ORDNANCE DISPOSAL SPECIALIST for ROXANN GAMING/NTS Conf#: [id number] DID#: [id number]
--- NOTE | 2016-09-19 17:14 | PN ---
Date/Time of Note Date/Time of Note DATE: 09/19/16 TIME: 17:10 Assessment/Plan VTE Prophylaxis VTE Prophylaxis Intervention: SCD's Lines/Catheters [facility] Saline Lock Urinary Cath still in place: No Assessment/Plan Chief Complaint/Hosp Course Assessment and plan 1. Acute encephalopathy. Improved . Will monitor 2. 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 Antiplatelet therapy on hold due to worsening anemia. Continue physical therapy. Stable at present 3. Accelerated hypertension. Continue antihypertensives and adjust as needed 4. Type 2 diabetes. Patient noted with A1c of 6.1. Continue insulin regimen. 5. Dyslipidemia. Continue on statin medication 6. Microcytic hypochromic anemia. Likely secondary to GI bleed and iron deficiency. Continue on iron supplement. GI following. Monitor H&H 7. Circumferential sigmoid colon mass measuring 5 cm. Plan for surgical intervention and resection of this once C. difficile colitis resolved. Follow- up on C. difficile culture 8. C. difficile colitis. Continue on antibiotics per ID recommendations. DVT Provox: SCDs GERD prophylaxis: PPI Disposition and plan: Tentative plan for surgical intervention of colonic mass once C. difficile colitis is resolved. Will follow up Discussed plan of care with Dr. Dixon Problems: Subjective 24 Hr Interval Summary Free Text/Dictation No apparent distress noted at this time. Comfortable at present Exam/Review of Systems Vital Signs Vitals Vital Signs Date Time Temp Pulse Resp B/P Pulse Ox O2 Delivery O2 Flow Rate FiO2 09/19/16 16:54 98.4 68 20 161/72 96 Intake and Output 09/18/16 09/18/16 09/19/16 15:00 23:00 07:00 Intake Total 950 ml 500 ml Output Total 3 ml Balance 947 ml 500 ml Exam General: No acute distress noted Eyes: Pupils equal round. Neck: Supple nontender, no JVD Cardiac: S1-S2 auscultated Pulmonary: No obvious wheezing rhonchi today GI: Soft nontender non-distended Extremities: No edema noted bilateral lower extremities today Skin: Clean dry and intact Neurologic: Alert and oriented 3 Results Result Diagram: 09/18/16 0715 09/18/16 0715 Results 24 hrs Laboratory Tests Test 09/18/16 17:40 09/18/16 20:29 09/19/16 03:14 09/19/16 08:30 Bedside Glucose 142 100 125 97 Test 09/19/16 12:19 Bedside Glucose 103 Medications Medications Current Medications Lorazepam (Ativan) 0.5 mg Q6H PRN IV ANXIETY Last administered on 09/12/16 03: 17; Admin Dose 0.5 MG; Start 09/11/16 at 18:30 Ondansetron HCl (Zofran Inj) 4 mg Q6H PRN IV NAUSEA AND/OR VOMITING; Start 09/11 at 18:30 Aspirin (Aspirin) 81 mg DAILY PO Last administered on 09/12/16 08:32; Admin Dose 81 MG; Start 09/12/16 at 09:00; Status Future Hold Acetaminophen (Tylenol Tab) 650 mg Q6H PRN PO PAIN LEVEL 1-3 OR FEVER; Start at 18:30 Acetaminophen/ Hydrocodone Bitart ([place] (5/325)) 1 tab Q6H PRN PO PAIN LEVEL 4 -6; Start 09/11/16 at 18:30 Morphine Sulfate (morphine) 2 mg Q4H PRN IV PAIN LEVEL 7-10; Start 09/11/16 at 18:30 Magnesium Hydroxide (Milk Of Mag) 30 ml DAILY PRN PO CONSTIPATION; Start at 18:30 Bisacodyl (Dulcolax) 5 mg DAILY PRN PO CONSTIPATION; Start 09/11/16 at 18:30 Insulin Glargine (Lantus) 8 unit DAILY@20 SC Last administered on 09/18/16 20: 32; Admin Dose 8 UNIT; Start 09/11/16 at 20:00 Atorvastatin Calcium (Lipitor) 20 mg QHS PO Last administered on 09/18/16 20: 31; Admin Dose 20 MG; Start 09/11/16 at 21:00 Folic Acid (Folic Acid) 1 mg DAILY PO Last administered on 09/19/16 08:31; Admin Dose 1 MG; Start 09/12/16 at 09:00 Hydralazine HCl (Apresoline) 10 mg Q6H PRN IV SBP>180 Last administered on 09:10; Admin Dose 10 MG; Start 09/11/16 at 19:00 Diagnostic Test (Pha) (Accucheck) 1 ea 02 XX ; Start 09/12/16 at 02:00 Miscellaneous Information 1 ea NOTE XX ; Start 09/11/16 at 19:30 Glucose (Glutose) 15 gm Q15M PRN PO DECREASED GLUCOSE; Start 09/11/16 at 19:30 Glucose (Glutose) 22.5 gm Q15M PRN PO DECREASED GLUCOSE; Start 09/11/16 at 19:30 Dextrose (D50w Syringe) 25 ml Q15M PRN IV DECREASED GLUCOSE; Start 09/11/16 at 19:30 Dextrose (D50w Syringe) 50 ml Q15M PRN IV DECREASED GLUCOSE; Start 09/11/16 at 19:30 Glucagon (Glucagen) 1 mg Q15M PRN IM DECREASED GLUCOSE; Start 09/11/16 at 19:30 Glucose (Glutose) 15 gm Q15M PRN BUCCAL DECREASED GLUCOSE; Start 09/11/16 at 19: 30 Metronidazole (Flagyl) 500 mg Q8 PO Last administered on 09/19/16 14:06; Admin Dose 500 MG; Start 09/13/16 at 14:00 Losartan Potassium (Cozaar) 50 mg BID PO Last administered on 09/19/16 08:31; Admin Dose 50 MG; Start 09/14/16 at 21:00 Nifedipine (Procardia Xl) 60 mg BID PO Last administered on 09/19/16 08:31; Admin Dose 60 MG; Start 09/14/16 at 21:00 Hydralazine HCl (Apresoline) 25 mg Q8 PO Last administered on 09/19/16 14:06; Admin Dose 25 MG; Start 09/15/16 at 14:00 Pantoprazole (Protonix Tab) 40 mg BID@,18 PO Last administered on 09/19/16 05:35; Admin Dose 40 MG; Start 09/18/16 at 18:00 CARLOS SOUZA Sep 19, 2016 17:13
[2016-09-19] MEDS: INSULIN GLARGINE [LANtus] 3 ML PEN SC SCH (20:12)
[2016-09-19] MEDS: ATORVASTATIN 20 MG TAB PO SCH (21:32)
[2016-09-20] MEDS: ACCUCHECK AT 2AM (Patients on SS coverage) XX SCH (02:00)
[2016-09-20 05:01] LABS: ADD SCAN DIFF NO
[2016-09-20 05:20] LABS: ABNORMAL IP MESSAGE 1; BASOPHIL # 0.1 10^3/ul (0.0-0.1); BASOPHILS % 1.3 % (0.0-2.0); EOSINOPHILS # 0.1 10^3/ul (0.0-0.5); EOSINOPHILS % 1.7 % (0.0-7.0); HEMATOCRIT 34.7 % (42.0-52.0); HEMOGLOBIN 10.3 g/dl (14.0-18.0); LYMPHOCYTES # 1.1 10^3/ul (0.8-2.9); LYMPHOCYTES % 12.8 % (15.0-51.0); MEAN CORPUSCULAR HEMOGLOBIN 22.4 pg (29.0-33.0); MEAN CORPUSCULAR HGB CONC 29.7 g/dl (32.0-37.0); MEAN CORPUSCULAR VOLUME 75.6 fl (82.0-101.0); MEAN PLATELET VOLUME 10.7 fl (7.4-10.4); MONOCYTE # 0.7 10^3/ul (0.3-0.9); MONOCYTES % 8.7 % (0.0-11.0); NEUTROPHIL # 6.3 10^3/ul (1.6-7.5); NEUTROPHILS % 75.1 % (39.0-77.0); PLATELET COUNT 297 10^3/UL (140-415); RED BLOOD COUNT 4.59 10^6/ul (4.70-6.10); RED CELL DISTRIBUTION WIDTH 27.7 % (11.5-14.5); WHITE BLOOD COUNT 8.4 10^3/ul (4.8-10.8)
[2016-09-20] MEDS: metroNIDAZOLE 500 MG TAB PO SCH ×3 (05:27→21:14)
[2016-09-20 05:28] LABS: INR 1.04; PROTIME 13.6 Sec (12.2-14.2); PT RATIO 1.1
[2016-09-20] MEDS: PANTOPRAZOLE (EC) 40 MG TAB PO SCH ×2 (05:28→17:07)
[2016-09-20 05:29] LABS: PARTIAL THROMBOPLASTIN TIME 29.3 Sec (25.0-35.0)
[2016-09-20 05:40] LABS: ALBUMIN 3.6 g/dl (3.3-4.9); POTASSIUM 3.6 mmol/L (3.5-5.1)
[2016-09-20 05:42] LABS: CREATININE 1.01 mg/dl (0.61-1.24)
[2016-09-20 05:43] LABS: ALBUMIN/GLOBULIN RATIO 1.09; CALCIUM 9.1 mg/dl (8.4-10.2); TOTAL PROTEIN 6.9 g/dl (6.1-8.1)
[2016-09-20] MEDS: INSULIN ASPART [NOVOLOG] 3 ML PEN SC SCH ×7 (08:00→21:00)
[2016-09-20 08:09] VITALS: BP 139/63; RESP 18
[2016-09-20] MEDS: FOLIC ACID 1 MG TAB PO SCH (08:24)
[2016-09-20] MEDS: LOSARTAN 50 MG TAB PO SCH ×2 (08:24→21:14)
[2016-09-20] MEDS: NIFEdipine (XL) 60 MG TAB PO SCH ×2 (08:25→21:15)
--- NOTE | 2016-09-20 11:03 | PN ---
DATE: 09/20/2016 The patient's diarrhea has resolved and a C. diff has reverted to negative. The abdominal examination is benign. PLAN: We will proceed with sigmoid colon resection on 09/22/2016 at 9:30 in the morning. T he procedure and risks were detailed again to the patient, his and son. Dictated By: MECCA DE LEON/ABDOULAYE Conf#: [id number] DID#: [id number]
[2016-09-20] MEDS ORDERED: [UNRECOGNIZED DRUG - REMARK] XX SCH (11:30)
--- NOTE | 2016-09-20 12:21 | CONS ---
Date/Time of Note Date/Time of Note DATE: 09/20/16 TIME: 12:19 Assessment/Plan Assessment/Plan Chief Complaint/Hosp Course 66 up with adenocarcinoma of the sigmoid colon. #Colon cancer- CT with no signs of distant mets and biopsy confirming adenocarcinoma. Preop CEA is 1.4 -agree with surgical resection and the further recommendations after surgical path. surgery is scheduled for Sunday morning # Anemia-secondary to iron deficiency. Ferritin at 5, will need iron supplementation and PRBC for hgb less than 7-8. Hg now stable and greater than 10 reason for GI blood loss is secondary to the sigmoid mass. 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 -ASA on hold for worsening anemia -management per primary team # Cdiff -now negative. diarrhea has improved Approximately 40 min were spent at patient's bedside and in coordination of his care Problems: Consultation Date/Type/Reason Admit Date/Time Sep 11, 2016 at 17:05 Initial Consult Date 09/16/16 Type of Consultation: Heme/Onc Reason for Consultation colon ca Referring Provider: SUSAN BRAUN [employer]OC[employer] SCHOOL TEACHER 24 HR Interval Summary Free Text/Dictation diarrhea has improved. C diff is negative. pt scheduled for surgery on sunday Exam/Review of Systems Vital Signs Vitals Vital Signs Date Time Temp Pulse Resp B/P Pulse Ox O2 Delivery O2 Flow Rate FiO2 09/20/16 08:09 98.6 77 18 139/63 97 Intake and Output 09/19/16 09/19/16 09/20/16 15:00 23:00 07:00 Intake Total 800 ml 150 ml Balance 800 ml 150 ml Exam Constitutional: alert, oriented Psych: no complaints Head: atraumatic, normocephalic Eyes: nl conjunctiva ENMT: nl external ears & nose Neck: non-tender, supple Respiratory: clear to auscultation Cardiovascular: nl pulses, regular rate and rhythm Gastrointestinal: soft Musculoskeletal: nl extremities to inspection, nl gait and stance Extremities: normal pulses Results Result Diagram: 09/20/16 0435 09/20/16 0435 Results 24 hrs Laboratory Tests Test 09/19/16 17:27 09/19/16 20:09 09/20/16 04:35 09/20/16 08:28 Bedside Glucose 103 102 109 Activated Partial Thromboplast Time 29.3 Alanine Aminotransferase (ALT/SGPT) 24 Albumin 3.6 Albumin/Globulin Ratio 1.09 Alkaline Phosphatase 79 Anion Gap 18 H Aspartate Amino Transf (AST/SGOT) 28 Basophils # 0.1 Basophils % 1.3 Blood Urea Nitrogen 19 Calcium Level 9.1 Carbon Dioxide Level 21 Chloride Level 107 Creatinine 1.01 Direct Bilirubin 0.00 Eosinophils # 0.1 Eosinophils % 1.7 Globulin 3.30 H Glucose Level 126 Hematocrit 34.7 L Hemoglobin 10.3 L INR International Normalized Ratio 1.04 Indirect Bilirubin 0.0 Lymphocytes # 1.1 Lymphocytes % 12.8 L Mean Corpuscular Hemoglobin 22.4 L Mean Corpuscular Hemoglobin Concent 29.7 L Mean Corpuscular Volume 75.6 L Mean Platelet Volume 10.7 H Monocytes # 0.7 Monocytes % 8.7 Neutrophils # 6.3 Neutrophils % 75.1 Nucleated Red Blood Cells # 0.0 Nucleated Red Blood Cells % 0.0 Platelet Count 297 Potassium Level 3.6 Prothrombin Time 13.6 Prothrombin Time Ratio 1.1 Red Blood Count 4.59 L Red Cell Distribution Width 27.7 H Sodium Level 142 Total Bilirubin 0.0 L Total Protein 6.9 White Blood Count 8.4 Medications Medications Current Medications Lorazepam (Ativan) 0.5 mg Q6H PRN IV ANXIETY Last administered on 09/12/16 03: 17; Admin Dose 0.5 MG; Start 09/11/16 at 18:30 Ondansetron HCl (Zofran Inj) 4 mg Q6H PRN IV NAUSEA AND/OR VOMITING; Start 09/11 at 18:30 Aspirin (Aspirin) 81 mg DAILY PO Last administered on 09/12/16 08:32; Admin Dose 81 MG; Start 09/12/16 at 09:00; Status Future Hold Acetaminophen (Tylenol Tab) 650 mg Q6H PRN PO PAIN LEVEL 1-3 OR FEVER; Start at 18:30 Acetaminophen/ Hydrocodone Bitart ([place] (5/325)) 1 tab Q6H PRN PO PAIN LEVEL 4 -6; Start 09/11/16 at 18:30 Morphine Sulfate (morphine) 2 mg Q4H PRN IV PAIN LEVEL 7-10; Start 09/11/16 at 18:30 Magnesium Hydroxide (Milk Of Mag) 30 ml DAILY PRN PO CONSTIPATION; Start at 18:30 Bisacodyl (Dulcolax) 5 mg DAILY PRN PO CONSTIPATION; Start 09/11/16 at 18:30 Insulin Glargine (Lantus) 8 unit DAILY@20 SC Last administered on 09/19/16 20: 12; Admin Dose 8 UNIT; Start 09/11/16 at 20:00 Atorvastatin Calcium (Lipitor) 20 mg QHS PO Last administered on 09/19/16 21: 32; Admin Dose 20 MG; Start 09/11/16 at 21:00 Folic Acid (Folic Acid) 1 mg DAILY PO Last administered on 09/20/16 08:24; Admin Dose 1 MG; Start 09/12/16 at 09:00 Hydralazine HCl (Apresoline) 10 mg Q6H PRN IV SBP>180 Last administered on 09:10; Admin Dose 10 MG; Start 09/11/16 at 19:00 Diagnostic Test (Pha) (Accucheck) 1 ea 02 XX ; Start 09/12/16 at 02:00 Miscellaneous Information 1 ea NOTE XX ; Start 09/11/16 at 19:30 Glucose (Glutose) 15 gm Q15M PRN PO DECREASED GLUCOSE; Start 09/11/16 at 19:30 Glucose (Glutose) 22.5 gm Q15M PRN PO DECREASED GLUCOSE; Start 09/11/16 at 19:30 Dextrose (D50w Syringe) 25 ml Q15M PRN IV DECREASED GLUCOSE; Start 09/11/16 at 19:30 Dextrose (D50w Syringe) 50 ml Q15M PRN IV DECREASED GLUCOSE; Start 09/11/16 at 19:30 Glucagon (Glucagen) 1 mg Q15M PRN IM DECREASED GLUCOSE; Start 09/11/16 at 19:30 Glucose (Glutose) 15 gm Q15M PRN BUCCAL DECREASED GLUCOSE; Start 09/11/16 at 19: 30 Metronidazole (Flagyl) 500 mg Q8 PO Last administered on 09/20/16 05:27; Admin Dose 500 MG; Start 09/13/16 at 14:00 Losartan Potassium (Cozaar) 50 mg BID PO Last administered on 09/20/16 08:24; Admin Dose 50 MG; Start 09/14/16 at 21:00 Nifedipine (Procardia Xl) 60 mg BID PO Last administered on 09/20/16 08:25; Admin Dose 60 MG; Start 09/14/16 at 21:00 Hydralazine HCl (Apresoline) 25 mg Q8 PO Last administered on 09/20/16 05:28; Admin Dose 25 MG; Start 09/15/16 at 14:00 Pantoprazole (Protonix Tab) 40 mg BID@,18 PO Last administered on 09/20/16 05:28; Admin Dose 40 MG; Start 09/18/16 at 18:00 Neomycin Sulfate (Neomycin) 1,000 mg Q1H PO ; Start 09/20/16 at 12:30; Stop at 17:31 Erythromycin (Erythromycin Base (Ec)) 500 mg BID PO ; Start 09/21/16 at 09:00; Stop 09/21/16 at 21:01 Magnesium Citrate (Citroma) 300 ml BID PO ; Start 09/21/16 at 09:00; Stop at 21:01 ROBB PICKARD M.D. Sep 20, 2016 12:21
[2016-09-20] MEDS ORDERED: NEOMYCIN 500 MG TAB PO SCH (12:30)
--- NOTE | 2016-09-20 14:22 | CONS ---
Date/Time of Note Date/Time of Note DATE: 09/20/16 TIME: 14:21 Assessment/Plan Assessment/Plan Chief Complaint/Hosp Course SUBJECTIVE: No events overnight. The patient is lying comfortably in bed, no fevers. ANTIMICROBIALS: Patient is on Flagyl. PHYSICAL EXAMINATION: GENERAL: This is well-developed, elderly man who is in no distress. HEENT: Head atraumatic, normocephalic. Sclerae anicteric. Buccal mucosa dry. NECK: Supple, trachea midline. CHEST: Rise symmetrical. Breath sounds diminished to bases. HEART: S1, S2. ABDOMEN: Soft, bowel tones present. EXTREMITIES: Without cyanosis. ASSESSMENT: 1. Clostridium difficile colitis with resolving diarrhea. 2. Colon carcinoma; no signs of distant metastases per CT. 3. Anemia. 4. History of cerebrovascular accident. 5. Diabetes. PLAN: Patient remains stable, diarrhea resolving, repeat stool neg C dif. He is followed by multiple consultants. Pending colon resection. DW stafff Problems: Consultation Date/Type/Reason Admit Date/Time Sep 11, 2016 at 17:05 Initial Consult Date 09/16/16 Type of Consultation: id Referring Provider: SUSAN BRAUN NP Exam/Review of Systems Vital Signs Vitals Vital Signs Date Time Temp Pulse Resp B/P Pulse Ox O2 Delivery O2 Flow Rate FiO2 09/20/16 08:09 98.6 77 18 139/63 97 Intake and Output 09/19/16 09/19/16 09/20/16 15:00 23:00 07:00 Intake Total 800 ml 150 ml Balance 800 ml 150 ml Results Result Diagram: 09/20/16 0435 09/20/16 0435 Results 24 hrs Laboratory Tests Test 09/19/16 17:27 09/19/16 20:09 09/20/16 04:35 09/20/16 08:28 Bedside Glucose 103 102 109 Activated Partial Thromboplast Time 29.3 Alanine Aminotransferase (ALT/SGPT) 24 Albumin 3.6 Albumin/Globulin Ratio 1.09 Alkaline Phosphatase 79 Anion Gap 18 H Aspartate Amino Transf (AST/SGOT) 28 Basophils # 0.1 Basophils % 1.3 Blood Urea Nitrogen 19 Calcium Level 9.1 Carbon Dioxide Level 21 Chloride Level 107 Creatinine 1.01 Direct Bilirubin 0.00 Eosinophils # 0.1 Eosinophils % 1.7 Globulin 3.30 H Glucose Level 126 Hematocrit 34.7 L Hemoglobin 10.3 L INR International Normalized Ratio 1.04 Indirect Bilirubin 0.0 Lymphocytes # 1.1 Lymphocytes % 12.8 L Mean Corpuscular Hemoglobin 22.4 L Mean Corpuscular Hemoglobin Concent 29.7 L Mean Corpuscular Volume 75.6 L Mean Platelet Volume 10.7 H Monocytes # 0.7 Monocytes % 8.7 Neutrophils # 6.3 Neutrophils % 75.1 Nucleated Red Blood Cells # 0.0 Nucleated Red Blood Cells % 0.0 Platelet Count 297 Potassium Level 3.6 Prothrombin Time 13.6 Prothrombin Time Ratio 1.1 Red Blood Count 4.59 L Red Cell Distribution Width 27.7 H Sodium Level 142 Total Bilirubin 0.0 L Total Protein 6.9 White Blood Count 8.4 Test 09/20/16 12:29 Bedside Glucose 122 Medications Medications Current Medications Lorazepam (Ativan) 0.5 mg Q6H PRN IV ANXIETY Last administered on 09/12/16 03: 17; Admin Dose 0.5 MG; Start 09/11/16 at 18:30 Ondansetron HCl (Zofran Inj) 4 mg Q6H PRN IV NAUSEA AND/OR VOMITING; Start 09/11 at 18:30 Aspirin (Aspirin) 81 mg DAILY PO Last administered on 09/12/16 08:32; Admin Dose 81 MG; Start 09/12/16 at 09:00; Status Future Hold Acetaminophen (Tylenol Tab) 650 mg Q6H PRN PO PAIN LEVEL 1-3 OR FEVER; Start at 18:30 Acetaminophen/ Hydrocodone Bitart ([place] (5/325)) 1 tab Q6H PRN PO PAIN LEVEL 4 -6; Start 09/11/16 at 18:30 Morphine Sulfate (morphine) 2 mg Q4H PRN IV PAIN LEVEL 7-10; Start 09/11/16 at 18:30 Magnesium Hydroxide (Milk Of Mag) 30 ml DAILY PRN PO CONSTIPATION; Start at 18:30 Bisacodyl (Dulcolax) 5 mg DAILY PRN PO CONSTIPATION; Start 09/11/16 at 18:30 Insulin Glargine (Lantus) 8 unit DAILY@20 SC Last administered on 09/19/16 20: 12; Admin Dose 8 UNIT; Start 09/11/16 at 20:00 Atorvastatin Calcium (Lipitor) 20 mg QHS PO Last administered on 09/19/16 21: 32; Admin Dose 20 MG; Start 09/11/16 at 21:00 Folic Acid (Folic Acid) 1 mg DAILY PO Last administered on 09/20/16 08:24; Admin Dose 1 MG; Start 09/12/16 at 09:00 Hydralazine HCl (Apresoline) 10 mg Q6H PRN IV SBP>180 Last administered on 09:10; Admin Dose 10 MG; Start 09/11/16 at 19:00 Diagnostic Test (Pha) (Accucheck) 1 ea 02 XX ; Start 09/12/16 at 02:00 Miscellaneous Information 1 ea NOTE XX ; Start 09/11/16 at 19:30 Glucose (Glutose) 15 gm Q15M PRN PO DECREASED GLUCOSE; Start 09/11/16 at 19:30 Glucose (Glutose) 22.5 gm Q15M PRN PO DECREASED GLUCOSE; Start 09/11/16 at 19:30 Dextrose (D50w Syringe) 25 ml Q15M PRN IV DECREASED GLUCOSE; Start 09/11/16 at 19:30 Dextrose (D50w Syringe) 50 ml Q15M PRN IV DECREASED GLUCOSE; Start 09/11/16 at 19:30 Glucagon (Glucagen) 1 mg Q15M PRN IM DECREASED GLUCOSE; Start 09/11/16 at 19:30 Glucose (Glutose) 15 gm Q15M PRN BUCCAL DECREASED GLUCOSE; Start 09/11/16 at 19: 30 Metronidazole (Flagyl) 500 mg Q8 PO Last administered on 09/20/16 05:27; Admin Dose 500 MG; Start 09/13/16 at 14:00 Losartan Potassium (Cozaar) 50 mg BID PO Last administered on 09/20/16 08:24; Admin Dose 50 MG; Start 09/14/16 at 21:00 Nifedipine (Procardia Xl) 60 mg BID PO Last administered on 09/20/16 08:25; Admin Dose 60 MG; Start 09/14/16 at 21:00 Hydralazine HCl (Apresoline) 25 mg Q8 PO Last administered on 09/20/16 05:28; Admin Dose 25 MG; Start 09/15/16 at 14:00 Pantoprazole (Protonix Tab) 40 mg BID@,18 PO Last administered on 3/15/17at 05:28; Admin Dose 40 MG; Start 09/18/16 at 18:00 Erythromycin (Erythromycin Base (Ec)) 500 mg BID PO ; Start 09/21/16 at 09:00; Stop 09/21/16 at 21:01 Magnesium Citrate (Citroma) 300 ml BID PO ; Start 09/21/16 at 09:00; Stop at 21:01 Neomycin Sulfate (Neomycin) 1,000 mg Q1H PO ; Start 09/21/16 at 07:00; Stop at 12:01 DI HADLEY NP Sep 20, 2016 14:21
--- NOTE | 2016-09-20 14:43 | PN ---
Date/Time of Note Date/Time of Note DATE: 09/20/16 TIME: 14:37 Assessment/Plan VTE Prophylaxis VTE Prophylaxis Intervention: SCD's Lines/Catheters [facility] Urinary Cath still in place: No Assessment/Plan Chief Complaint/Hosp Course Assessment and plan 1. Acute encephalopathy. Improved at this time. Will monitor 2. 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 Antiplatelet therapy on hold due to anemia. Continue physical therapy. 3. Accelerated hypertension. Continue antihypertensives and adjust as needed. Stable at present 4. Type 2 diabetes. Patient noted with A1c of 6.1. Insulin regimen resumed 5. Dyslipidemia. Continue on statin medication 6. Microcytic hypochromic anemia. Likely secondary to GI bleed and iron deficiency. Continue iron supplement. Trend appears better today 7. Circumferential sigmoid colon mass measuring 5 cm. Plan for surgical intervention and resection 09/22/2016. Of note, repeat C. difficile culture negative 8. C. difficile colitis. Continue on antibiotics per ID recommendations. Repeat C. difficile culture was negative DVT Provox: SCDs GERD prophylaxis: PPI Disposition and plan: Plan for surgical intervention on 09/22/2016. We'll follow -up Discussed plan of care with Dr. Dixon Problems: Subjective 24 Hr Interval Summary Free Text/Dictation Appears comfortable. No reported pain at this time Exam/Review of Systems Vital Signs Vitals Vital Signs Date Time Temp Pulse Resp B/P Pulse Ox O2 Delivery O2 Flow Rate FiO2 09/20/16 08:09 98.6 77 18 139/63 97 Intake and Output 09/19/16 09/19/16 09/20/16 15:00 23:00 07:00 Intake Total 800 ml 150 ml Balance 800 ml 150 ml Exam General: Sitting in bed. Appears comfortable. No apparent distress Eyes: Remain equal and round. Anicteric sclera Neck: No JVD seen Cardiac: Regular rate auscultated Pulmonary: No adventitious lung sounds GI: Soft, slightly distended Extremities: No obvious edema bilateral lower summary Skin: Clean dry and intact Neurologic: Alert and oriented 3 Results Result Diagram: 09/20/16 0435 09/20/16 0435 Results 24 hrs Laboratory Tests Test 09/19/16 17:27 09/19/16 20:09 09/20/16 04:35 09/20/16 08:28 Bedside Glucose 103 102 109 Activated Partial Thromboplast Time 29.3 Alanine Aminotransferase (ALT/SGPT) 24 Albumin 3.6 Albumin/Globulin Ratio 1.09 Alkaline Phosphatase 79 Anion Gap 18 H Aspartate Amino Transf (AST/SGOT) 28 Basophils # 0.1 Basophils % 1.3 Blood Urea Nitrogen 19 Calcium Level 9.1 Carbon Dioxide Level 21 Chloride Level 107 Creatinine 1.01 Direct Bilirubin 0.00 Eosinophils # 0.1 Eosinophils % 1.7 Globulin 3.30 H Glucose Level 126 Hematocrit 34.7 L Hemoglobin 10.3 L INR International Normalized Ratio 1.04 Indirect Bilirubin 0.0 Lymphocytes # 1.1 Lymphocytes % 12.8 L Mean Corpuscular Hemoglobin 22.4 L Mean Corpuscular Hemoglobin Concent 29.7 L Mean Corpuscular Volume 75.6 L Mean Platelet Volume 10.7 H Monocytes # 0.7 Monocytes % 8.7 Neutrophils # 6.3 Neutrophils % 75.1 Nucleated Red Blood Cells # 0.0 Nucleated Red Blood Cells % 0.0 Platelet Count 297 Potassium Level 3.6 Prothrombin Time 13.6 Prothrombin Time Ratio 1.1 Red Blood Count 4.59 L Red Cell Distribution Width 27.7 H Sodium Level 142 Total Bilirubin 0.0 L Total Protein 6.9 White Blood Count 8.4 Test 09/20/16 12:29 Bedside Glucose 122 Medications Medications Current Medications Lorazepam (Ativan) 0.5 mg Q6H PRN IV ANXIETY Last administered on 09/12/16 03: 17; Admin Dose 0.5 MG; Start 09/11/16 at 18:30 Ondansetron HCl (Zofran Inj) 4 mg Q6H PRN IV NAUSEA AND/OR VOMITING; Start 09/11 at 18:30 Aspirin (Aspirin) 81 mg DAILY PO Last administered on 09/12/16 08:32; Admin Dose 81 MG; Start 09/12/16 at 09:00; Status Future Hold Acetaminophen (Tylenol Tab) 650 mg Q6H PRN PO PAIN LEVEL 1-3 OR FEVER; Start at 18:30 Acetaminophen/ Hydrocodone Bitart ([place] (5/325)) 1 tab Q6H PRN PO PAIN LEVEL 4 -6; Start 09/11/16 at 18:30 Morphine Sulfate (morphine) 2 mg Q4H PRN IV PAIN LEVEL 7-10; Start 09/11/16 at 18:30 Magnesium Hydroxide (Milk Of Mag) 30 ml DAILY PRN PO CONSTIPATION; Start at 18:30 Bisacodyl (Dulcolax) 5 mg DAILY PRN PO CONSTIPATION; Start 09/11/16 at 18:30 Insulin Glargine (Lantus) 8 unit DAILY@20 SC Last administered on 09/19/16 20: 12; Admin Dose 8 UNIT; Start 09/11/16 at 20:00 Atorvastatin Calcium (Lipitor) 20 mg QHS PO Last administered on 09/19/16 21: 32; Admin Dose 20 MG; Start 09/11/16 at 21:00 Folic Acid (Folic Acid) 1 mg DAILY PO Last administered on 09/20/16 08:24; Admin Dose 1 MG; Start 09/12/16 at 09:00 Hydralazine HCl (Apresoline) 10 mg Q6H PRN IV SBP>180 Last administered on 09:10; Admin Dose 10 MG; Start 09/11/16 at 19:00 Diagnostic Test (Pha) (Accucheck) 1 ea 02 XX ; Start 09/12/16 at 02:00 Miscellaneous Information 1 ea NOTE XX ; Start 09/11/16 at 19:30 Glucose (Glutose) 15 gm Q15M PRN PO DECREASED GLUCOSE; Start 09/11/16 at 19:30 Glucose (Glutose) 22.5 gm Q15M PRN PO DECREASED GLUCOSE; Start 09/11/16 at 19:30 Dextrose (D50w Syringe) 25 ml Q15M PRN IV DECREASED GLUCOSE; Start 09/11/16 at 19:30 Dextrose (D50w Syringe) 50 ml Q15M PRN IV DECREASED GLUCOSE; Start 09/11/16 at 19:30 Glucagon (Glucagen) 1 mg Q15M PRN IM DECREASED GLUCOSE; Start 09/11/16 at 19:30 Glucose (Glutose) 15 gm Q15M PRN BUCCAL DECREASED GLUCOSE; Start 09/11/16 at 19: 30 Metronidazole (Flagyl) 500 mg Q8 PO Last administered on 09/20/16 05:27; Admin Dose 500 MG; Start 09/13/16 at 14:00 Losartan Potassium (Cozaar) 50 mg BID PO Last administered on 09/20/16 08:24; Admin Dose 50 MG; Start 3/9/17 at 21:00 Nifedipine (Procardia Xl) 60 mg BID PO Last administered on 09/20/16 08:25; Admin Dose 60 MG; Start 09/14/16 at 21:00 Hydralazine HCl (Apresoline) 25 mg Q8 PO Last administered on 09/20/16 05:28; Admin Dose 25 MG; Start 09/15/16 at 14:00 Pantoprazole (Protonix Tab) 40 mg BID@,18 PO Last administered on 09/20/16 05:28; Admin Dose 40 MG; Start 09/18/16 at 18:00 Erythromycin (Erythromycin Base (Ec)) 500 mg BID PO ; Start 09/21/16 at 09:00; Stop 09/21/16 at 21:01 Magnesium Citrate (Citroma) 300 ml BID PO ; Start 09/21/16 at 09:00; Stop at 21:01 Neomycin Sulfate (Neomycin) 1,000 mg Q1H PO ; Start 09/21/16 at 07:00; Stop at 12:01 CARLOS SOUZA Sep 20, 2016 14:43
[2016-09-20 20:11] VITALS: BP 157/74; RESP 19
[2016-09-20] MEDS: ATORVASTATIN 20 MG TAB PO SCH (21:14)
[2016-09-20] MEDS: INSULIN GLARGINE [LANtus] 3 ML PEN SC SCH (21:19)
[2016-09-21] MEDS: ACCUCHECK AT 2AM (Patients on SS coverage) XX SCH (02:00)
[2016-09-21] MEDS: PANTOPRAZOLE (EC) 40 MG TAB PO SCH ×2 (05:17→17:29)
[2016-09-21] MEDS: metroNIDAZOLE 500 MG TAB PO SCH ×3 (05:17→21:58)
[2016-09-21] MEDS: NEOMYCIN 500 MG TAB PO SCH ×6 (06:11→12:46)
[2016-09-21] MEDS: INSULIN ASPART [NOVOLOG] 3 ML PEN SC SCH ×7 (07:55→21:00)
[2016-09-21 08:12] VITALS: BP 156/71; RESP 20
[2016-09-21] MEDS: ERYTHROMYCIN BASE (EC) 500 MG TAB PO SCH ×2 (08:12→23:33)
[2016-09-21] MEDS: FOLIC ACID 1 MG TAB PO SCH (08:12)
[2016-09-21] MEDS: LOSARTAN 50 MG TAB PO SCH ×2 (08:17→21:58)
[2016-09-21] MEDS: MAGNESIUM CITRATE 300 ML BTL PO SCH ×2 (08:17→23:32)
[2016-09-21] MEDS: NIFEdipine (XL) 60 MG TAB PO SCH ×2 (08:18→21:58)
--- NOTE | 2016-09-21 12:25 | PN ---
Date/Time of Note Date/Time of Note DATE: 09/21/16 TIME: 12:22 Assessment/Plan VTE Prophylaxis VTE Prophylaxis Intervention: SCD's Lines/Catheters [facility] Saline Lock Urinary Cath still in place: No Assessment/Plan Chief Complaint/Hosp Course Assessment and plan 1. Acute encephalopathy. Improved . Will monitor 2. 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 Antiplatelet therapy on hold due to worsening anemia. Continue physical therapy. Stable at present. Continue supportive measures 3. Accelerated hypertension. Continue antihypertensives and adjust as needed 4. Type 2 diabetes. Patient noted with A1c of 6.1. Continue insulin regimen. 5. Dyslipidemia. Continue on statin medication 6. Microcytic hypochromic anemia. Likely secondary to GI bleed and iron deficiency. Continue on iron supplement. H&H remained stable at this time. We' ll transfuse as needed 7. Circumferential sigmoid colon mass measuring 5 cm. patient repeat C. difficile culture was negative. Tentative plan for surgical intervention 2016. Follow-up with surgeon 8. C. difficile colitis. Recent repeat culture was negative. Continue on antibiotics per ID recommendations DVT Provox: SCDs GERD prophylaxis: PPI Disposition and plan: Plan for surgical intervention of colonic mass on 2016. Follow-up a.m. labs. Discussed plan of care with Dr. Dixon Problems: Subjective 24 Hr Interval Summary Free Text/Dictation Resting at this time. No apparent distress. Family at bedside. Exam/Review of Systems Vital Signs Vitals Vital Signs Date Time Temp Pulse Resp B/P Pulse Ox O2 Delivery O2 Flow Rate FiO2 09/21/16 08:12 98.3 74 20 156/71 95 Intake and Output 09/20/16 09/20/16 09/21/16 15:00 23:00 07:00 Intake Total 500 ml 400 ml Output Total 150 ml Balance 500 ml 250 ml Exam General: Alert and oriented. No apparent distress. Eyes: Equal round. Tracks Neck: No apparent JVD Cardiac: Still noted with S1-S2 auscultated and regular rate Pulmonary: No wheezing or rhonchi GI: Soft, slightly distended Extremities: No edema bilateral lower extremities Skin: Clean dry and intact Neurologic: Alert and oriented 3 Results Result Diagram: 09/20/16 0435 09/20/16 0435 Results 24 hrs Laboratory Tests Test 09/20/16 12:29 09/20/16 17:06 09/20/16 21:17 09/21/16 07:51 Bedside Glucose 122 117 117 106 Test 09/21/16 11:25 Bedside Glucose 93 Medications Medications Current Medications Lorazepam (Ativan) 0.5 mg Q6H PRN IV ANXIETY Last administered on 09/12/16 03: 17; Admin Dose 0.5 MG; Start 09/11/16 at 18:30 Ondansetron HCl (Zofran Inj) 4 mg Q6H PRN IV NAUSEA AND/OR VOMITING; Start 09/11 at 18:30 Aspirin (Aspirin) 81 mg DAILY PO Last administered on 09/12/16 08:32; Admin Dose 81 MG; Start 09/12/16 at 09:00; Status Future Hold Acetaminophen (Tylenol Tab) 650 mg Q6H PRN PO PAIN LEVEL 1-3 OR FEVER; Start at 18:30 Acetaminophen/ Hydrocodone Bitart ([place] (5/325)) 1 tab Q6H PRN PO PAIN LEVEL 4 -6; Start 09/11/16 at 18:30 Morphine Sulfate (morphine) 2 mg Q4H PRN IV PAIN LEVEL 7-10; Start 09/11/16 at 18:30 Magnesium Hydroxide (Milk Of Mag) 30 ml DAILY PRN PO CONSTIPATION; Start at 18:30 Bisacodyl (Dulcolax) 5 mg DAILY PRN PO CONSTIPATION; Start 09/11/16 at 18:30 Insulin Glargine (Lantus) 8 unit DAILY@20 SC Last administered on 09/20/16 21: 19; Admin Dose 8 UNIT; Start 09/11/16 at 20:00 Atorvastatin Calcium (Lipitor) 20 mg QHS PO Last administered on 09/20/16 21: 14; Admin Dose 20 MG; Start 09/11/16 at 21:00 Folic Acid (Folic Acid) 1 mg DAILY PO Last administered on 09/21/16 08:12; Admin Dose 1 MG; Start 09/12/16 at 09:00 Hydralazine HCl (Apresoline) 10 mg Q6H PRN IV SBP>180 Last administered on 09:10; Admin Dose 10 MG; Start 09/11/16 at 19:00 Diagnostic Test (Pha) (Accucheck) 1 ea 02 XX ; Start 09/12/16 at 02:00 Miscellaneous Information 1 ea NOTE XX ; Start 09/11/16 at 19:30 Glucose (Glutose) 15 gm Q15M PRN PO DECREASED GLUCOSE; Start 09/11/16 at 19:30 Glucose (Glutose) 22.5 gm Q15M PRN PO DECREASED GLUCOSE; Start 09/11/16 at 19:30 Dextrose (D50w Syringe) 25 ml Q15M PRN IV DECREASED GLUCOSE; Start 09/11/16 at 19:30 Dextrose (D50w Syringe) 50 ml Q15M PRN IV DECREASED GLUCOSE; Start 09/11/16 at 19:30 Glucagon (Glucagen) 1 mg Q15M PRN IM DECREASED GLUCOSE; Start 09/11/16 at 19:30 Glucose (Glutose) 15 gm Q15M PRN BUCCAL DECREASED GLUCOSE; Start 09/11/16 at 19: 30 Metronidazole (Flagyl) 500 mg Q8 PO Last administered on 09/21/16 05:17; Admin Dose 500 MG; Start 09/13/16 at 14:00 Losartan Potassium (Cozaar) 50 mg BID PO Last administered on 09/21/16 08:17; Admin Dose 50 MG; Start 09/14/16 at 21:00 Nifedipine (Procardia Xl) 60 mg BID PO Last administered on 09/21/16 08:18; Admin Dose 60 MG; Start 09/14/16 at 21:00 Hydralazine HCl (Apresoline) 25 mg Q8 PO Last administered on 09/21/16 05:17; Admin Dose 25 MG; Start 09/15/16 at 14:00 Pantoprazole (Protonix Tab) 40 mg BID@,18 PO Last administered on 09/21/16 05:17; Admin Dose 40 MG; Start 09/18/16 at 18:00 Erythromycin (Erythromycin Base (Ec)) 500 mg BID PO Last administered on 08:12; Admin Dose 500 MG; Start 09/21/16 at 09:00; Stop 09/21/16 at 21:01 Magnesium Citrate (Citroma) 300 ml BID PO Last administered on 09/21/16 08:17 ; Admin Dose 300 ML; Start 09/21/16 at 09:00; Stop 09/21/16 at 21:01 CARLOS SOUZA Sep 21, 2016 12:25
[2016-09-21 13:14] VITALS: BP 141/66; PULSE 73
--- NOTE | 2016-09-21 15:55 | CONS ---
Date/Time of Note Date/Time of Note DATE: 09/21/16 TIME: 15:53 Assessment/Plan Assessment/Plan Chief Complaint/Hosp Course SUBJECTIVE: No events overnight. The patient is alert, no diarrhea, no fevers. ANTIMICROBIALS: Patient is on Flagyl. PHYSICAL EXAMINATION: GENERAL: This is well-developed, elderly man who is in no distress. HEENT: Head atraumatic, normocephalic. Sclerae anicteric. Buccal mucosa dry. NECK: Supple, trachea midline. CHEST: Rise symmetrical. Breath sounds diminished to bases. HEART: S1, S2. ABDOMEN: Soft, bowel tones present. EXTREMITIES: Without cyanosis. ASSESSMENT: 1. Clostridium difficile colitis with resolving diarrhea. 2. Colon carcinoma; no signs of distant metastases per CT. 3. Anemia. 4. History of cerebrovascular accident. 5. Diabetes. PLAN: Patient remains stable, diarrhea resolving, repeat stool neg C dif. Pending colon resection. Oncology/surgical rec-s DW staff/pt Problems: Consultation Date/Type/Reason Admit Date/Time Sep 11, 2016 at 17:05 Initial Consult Date 09/16/16 Type of Consultation: id Referring Provider: SUSAN BRAUN HE[employer] INFORMATICS ADVISOR Exam/Review of Systems Vital Signs Vitals Vital Signs Date Time Temp Pulse Resp B/P Pulse Ox O2 Delivery O2 Flow Rate FiO2 09/21/16 13:14 73 141/66 09/21/16 08:12 98.3 20 95 Intake and Output 09/20/16 09/20/16 09/21/16 15:00 23:00 07:00 Intake Total 500 ml 400 ml Output Total 150 ml Balance 500 ml 250 ml Results Result Diagram: 09/20/16 0435 09/20/16 0435 Results 24 hrs Laboratory Tests Test 09/20/16 17:06 09/20/16 21:17 09/21/16 07:51 09/21/16 11:25 Bedside Glucose 117 117 106 93 Medications Medications Current Medications Lorazepam (Ativan) 0.5 mg Q6H PRN IV ANXIETY Last administered on 09/12/16t 03: 17; Admin Dose 0.5 MG; Start 09/11/16 at 18:30 Ondansetron HCl (Zofran Inj) 4 mg Q6H PRN IV NAUSEA AND/OR VOMITING; Start 09/11 at 18:30 Aspirin (Aspirin) 81 mg DAILY PO Last administered on 09/12/16 08:32; Admin Dose 81 MG; Start 09/12/16 at 09:00; Status Future Hold Acetaminophen (Tylenol Tab) 650 mg Q6H PRN PO PAIN LEVEL 1-3 OR FEVER; Start at 18:30 Acetaminophen/ Hydrocodone Bitart ([place] (5/325)) 1 tab Q6H PRN PO PAIN LEVEL 4 -6; Start 09/11/16 at 18:30 Morphine Sulfate (morphine) 2 mg Q4H PRN IV PAIN LEVEL 7-10; Start 09/11/16 at 18:30 Magnesium Hydroxide (Milk Of Mag) 30 ml DAILY PRN PO CONSTIPATION; Start at 18:30 Bisacodyl (Dulcolax) 5 mg DAILY PRN PO CONSTIPATION; Start 09/11/16 at 18:30 Insulin Glargine (Lantus) 8 unit DAILY@20 SC Last administered on 09/20/16 21: 19; Admin Dose 8 UNIT; Start 09/11/16 at 20:00 Atorvastatin Calcium (Lipitor) 20 mg QHS PO Last administered on 09/20/16 21: 14; Admin Dose 20 MG; Start 09/11/16 at 21:00 Folic Acid (Folic Acid) 1 mg DAILY PO Last administered on 09/21/16 08:12; Admin Dose 1 MG; Start 09/12/16 at 09:00 Hydralazine HCl (Apresoline) 10 mg Q6H PRN IV SBP>180 Last administered on 09:10; Admin Dose 10 MG; Start 09/11/16 at 19:00 Diagnostic Test (Pha) (Accucheck) 1 ea 02 XX ; Start 09/12/16 at 02:00 Miscellaneous Information 1 ea NOTE XX ; Start 09/11/16 at 19:30 Glucose (Glutose) 15 gm Q15M PRN PO DECREASED GLUCOSE; Start 09/11/16 at 19:30 Glucose (Glutose) 22.5 gm Q15M PRN PO DECREASED GLUCOSE; Start 09/11/16 at 19:30 Dextrose (D50w Syringe) 25 ml Q15M PRN IV DECREASED GLUCOSE; Start 09/11/16 at 19:30 Dextrose (D50w Syringe) 50 ml Q15M PRN IV DECREASED GLUCOSE; Start 09/11/16 at 19:30 Glucagon (Glucagen) 1 mg Q15M PRN IM DECREASED GLUCOSE; Start 09/11/16 at 19:30 Glucose (Glutose) 15 gm Q15M PRN BUCCAL DECREASED GLUCOSE; Start 09/11/16 at 19: 30 Metronidazole (Flagyl) 500 mg Q8 PO Last administered on 09/21/16 13:12; Admin Dose 500 MG; Start 09/13/16 at 14:00 Losartan Potassium (Cozaar) 50 mg BID PO Last administered on 09/21/16 08:17; Admin Dose 50 MG; Start 09/14/16 at 21:00 Nifedipine (Procardia Xl) 60 mg BID PO Last administered on 09/21/16 08:18; Admin Dose 60 MG; Start 09/14/16 at 21:00 Hydralazine HCl (Apresoline) 25 mg Q8 PO Last administered on 09/21/16 13:14; Admin Dose 25 MG; Start 09/15/16 at 14:00 Pantoprazole (Protonix Tab) 40 mg BID@,18 PO Last administered on 09/21/16 05:17; Admin Dose 40 MG; Start 09/18/16 at 18:00 Erythromycin (Erythromycin Base (Ec)) 500 mg BID PO Last administered on 08:12; Admin Dose 500 MG; Start 09/21/16 at 09:00; Stop 09/21/16 at 21:01 Magnesium Citrate (Citroma) 300 ml BID PO Last administered on 09/21/16 08:17 ; Admin Dose 300 ML; Start 09/21/16 at 09:00; Stop 09/21/16 at 21:01 DI HADLEY NP Sep 21, 2016 15:54
[2016-09-21 20:00] VITALS: BP 137/64; PULSE 77; RESP 16
[2016-09-21 21:13] VITALS: BP 137/64; RESP 16
[2016-09-21] MEDS: INSULIN GLARGINE [LANtus] 3 ML PEN SC SCH (21:54)
[2016-09-21] MEDS: ATORVASTATIN 20 MG TAB PO SCH (21:56)
[2016-09-22] VITALS (34 sets, daily range): BP systolic 142–185; BP diastolic 46–89; PULSE 64–100; RESP 15–29
[2016-09-22] MEDS: ACCUCHECK AT 2AM (Patients on SS coverage) XX SCH (02:00)
[2016-09-22] MEDS: metroNIDAZOLE 500 MG TAB PO SCH ×3 (05:02→22:32)
[2016-09-22] MEDS: PANTOPRAZOLE (EC) 40 MG TAB PO SCH ×2 (05:02→18:32)
[2016-09-22 05:21] LABS: ADD SCAN DIFF NO
[2016-09-22 05:26] LABS: ABNORMAL IP MESSAGE 1; BASOPHIL # 0.1 10^3/ul (0.0-0.1); BASOPHILS % 1.8 % (0.0-2.0); EOSINOPHILS # 0.3 10^3/ul (0.0-0.5); EOSINOPHILS % 5.9 % (0.0-7.0); HEMATOCRIT 33.8 % (42.0-52.0); HEMOGLOBIN 9.9 g/dl (14.0-18.0); LYMPHOCYTES # 0.9 10^3/ul (0.8-2.9); LYMPHOCYTES % 18.4 % (15.0-51.0); MEAN CORPUSCULAR HEMOGLOBIN 22.3 pg (29.0-33.0); MEAN CORPUSCULAR HGB CONC 29.3 g/dl (32.0-37.0); MEAN CORPUSCULAR VOLUME 76.3 fl (82.0-101.0); MEAN PLATELET VOLUME 10.4 fl (7.4-10.4); MONOCYTE # 0.5 10^3/ul (0.3-0.9); MONOCYTES % 10.4 % (0.0-11.0); NEUTROPHIL # 3.2 10^3/ul (1.6-7.5); NEUTROPHILS % 63.1 % (39.0-77.0); PLATELET COUNT 256 10^3/UL (140-415); RED BLOOD COUNT 4.43 10^6/ul (4.70-6.10); RED CELL DISTRIBUTION WIDTH 28.5 % (11.5-14.5); WHITE BLOOD COUNT 5.1 10^3/ul (4.8-10.8)
[2016-09-22 05:41] LABS: INR 1.05; PROTIME 13.7 Sec (12.2-14.2); PT RATIO 1.1
[2016-09-22 05:42] LABS: PARTIAL THROMBOPLASTIN TIME 31.2 Sec (25.0-35.0)
[2016-09-22 05:58] LABS: ALBUMIN 3.3 g/dl (3.3-4.9); POTASSIUM 3.5 mmol/L (3.5-5.1)
[2016-09-22 06:00] LABS: CREATININE 0.78 mg/dl (0.61-1.24)
[2016-09-22 06:01] LABS: ALBUMIN/GLOBULIN RATIO 1.03; TOTAL PROTEIN 6.5 g/dl (6.1-8.1)
[2016-09-22 06:02] LABS: CALCIUM 8.4 mg/dl (8.4-10.2)
[2016-09-22] MEDS: INSULIN ASPART [NOVOLOG] 3 ML PEN SC SCH ×7 (07:35→21:00)
[2016-09-22] MEDS: NIFEdipine (XL) 60 MG TAB PO SCH ×2 (08:18→21:18)
[2016-09-22] MEDS: FOLIC ACID 1 MG TAB PO SCH (08:18)
[2016-09-22] MEDS: LOSARTAN 50 MG TAB PO SCH ×2 (08:18→21:18)
[2016-09-22] MEDS ORDERED: PROPOFOL 20 ML ONE (09:42)
[2016-09-22] MEDS ORDERED: MIDAZOLAM 1 MG/ML 2 ML INJ ONE (09:42)
[2016-09-22] MEDS ORDERED: ROCURONIUM 50 MG INJ ONE ×2 (09:42→10:55)
[2016-09-22] MEDS ORDERED: METOCLOPRAMIDE 10 MG INJ ONE (09:42)
[2016-09-22] MEDS ORDERED: ONDANSETRON 4 MG INJ ONE (09:49)
--- NOTE | 2016-09-22 10:11 | HPN ---
Date/Time of Note Date/Time of Note DATE: 09/22/16 TIME: 10:10 Interval H&P Admission Note Pt. seen H&P reviewed: Systems changes noted below C diff colitis resolved MECCA HANCOCK MD Sep 22, 2016 10:11
[2016-09-22] MEDS ORDERED: morphine SULFATE/PF (10 MG/10 ML) INJ ONE (10:12)
[2016-09-22] MEDS ORDERED: CEFAZOLIN 1 GM INJ ONE (10:55)
[2016-09-22] MEDS ORDERED: EPHEDrine SULFATE 50 MG/5 ML SYG ONE ×2 (11:01→12:43)
[2016-09-22] MEDS ORDERED: METOPROLOL 5 MG INJ ONE (11:21)
[2016-09-22] MEDS ORDERED: ROPIVACAINE 0.5 % 30 ML VIAL ONE (11:59)
[2016-09-22] MEDS ORDERED: GLYCOPYRROLATE 1 MG INJ ONE (12:06)
[2016-09-22] MEDS ORDERED: NEOSTIGMINE 3 MG/3 ML SYRINGE ONE (12:06)
[2016-09-22] MEDS ORDERED: METOCLOPRAMIDE 10 MG INJ IV PRN (12:30)
[2016-09-22] MEDS ORDERED: HYDROmorphONE (0.2 MG/ML) 10ML SYG IV PRN ×3 (12:30)
[2016-09-22] MEDS ORDERED: ONDANSETRON 4 MG INJ IV PRN ×2 (12:30→13:00)
[2016-09-22] MEDS ORDERED: DIPHENHYDRAMINE 50 MG INJ IV PRN (12:30)
[2016-09-22] MEDS ORDERED: MEPERIDINE 25 MG INJ IV PRN (12:30)
[2016-09-22] MEDS ORDERED: LABETALOL HCL 20MG INJ IV PRN (12:30)
[2016-09-22] MEDS ORDERED: FENTAnyl 50 MCG/ML VIAL ONE (12:43)
[2016-09-22] MEDS ORDERED: FUROSEMIDE 20 MG INJ ONE ×2 (12:45→13:55)
--- NOTE | 2016-09-22 12:45 | PN ---
Date/Time of Note Date/Time of Note DATE: 09/22/16 TIME: 12:41 Assessment/Plan VTE Prophylaxis VTE Prophylaxis Intervention: LMWH Lines/Catheters IV Catheter Type (from [facility]): [facility] Urinary Cath still in place: No Assessment/Plan Chief Complaint/Hosp Course Assessment and plan 1. Acute encephalopathy. Improved . Will monitor 2. 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 Antiplatelet therapy on hold due to worsening anemia. stable at present 3. Accelerated hypertension. Continue antihypertensives and adjust as needed 4. Type 2 diabetes. Patient noted with A1c of 6.1. Continue insulin regimen. 5. Dyslipidemia. Continue on statin medication 6. Microcytic hypochromic anemia. Likely secondary to GI bleed and iron deficiency. Continue on iron supplement. H&H remained stable at this time. We' ll transfuse as needed 7. Circumferential sigmoid colon mass measuring 5 cm. patient repeat C. difficile culture was negative. Tentative plan for surgical intervention 2016. Will follow up post op care 8. C. difficile colitis. Recent repeat culture was negative. Continue on antibiotics per ID recommendations DVT Provox: SCDs GERD prophylaxis: PPI Disposition and plan: Plan for surgical intervention of colonic mass on 2016. will follow post-op. cont with consult recs Discussed plan of care with Dr. Dixon Problems: Subjective 24 Hr Interval Summary Free Text/Dictation patient for surgical intervention Exam/Review of Systems Vital Signs Vitals Vital Signs Date Time Temp Pulse Resp B/P Pulse Ox O2 Delivery O2 Flow Rate FiO2 09/22/16 07:05 98.6 77 18 159/74 94 09/21/16 20:00 Room Air Intake and Output 09/21/16 09/21/16 09/22/16 15:00 23:00 07:00 Intake Total 600 ml Balance 600 ml Exam patient for surgical intervention Results Result Diagram: 09/22/16 0446 09/22/16 0446 Results 24 hrs Laboratory Tests Test 09/21/16 16:14 09/21/16 21:44 09/22/16 04:46 09/22/16 08:12 Bedside Glucose 114 91 90 Activated Partial Thromboplast Time 31.2 Alanine Aminotransferase (ALT/SGPT) 29 Albumin 3.3 Albumin/Globulin Ratio 1.03 Alkaline Phosphatase 71 Anion Gap 16 Aspartate Amino Transf (AST/SGOT) 27 Basophils # 0.1 Basophils % 1.8 Blood Urea Nitrogen 9 Calcium Level 8.4 Carbon Dioxide Level 26 Chloride Level 107 Creatinine 0.78 Direct Bilirubin 0.00 Eosinophils # 0.3 Eosinophils % 5.9 Globulin 3.20 Glucose Level 84 Hematocrit 33.8 L Hemoglobin 9.9 L INR International Normalized Ratio 1.05 Indirect Bilirubin 0.0 Lymphocytes # 0.9 Lymphocytes % 18.4 Mean Corpuscular Hemoglobin 22.3 L Mean Corpuscular Hemoglobin Concent 29.3 L Mean Corpuscular Volume 76.3 L Mean Platelet Volume 10.4 Monocytes # 0.5 Monocytes % 10.4 Neutrophils # 3.2 Neutrophils % 63.1 Nucleated Red Blood Cells # 0.0 Nucleated Red Blood Cells % 0.0 Platelet Count 256 Potassium Level 3.5 Prothrombin Time 13.7 Prothrombin Time Ratio 1.1 Red Blood Count 4.43 L Red Cell Distribution Width 28.5 H Sodium Level 145 H Total Bilirubin 0.0 L Total Protein 6.5 White Blood Count 5.1 # Medications Medications Current Medications Lorazepam (Ativan) 0.5 mg Q6H PRN IV ANXIETY Last administered on 09/12/16 03: 17; Admin Dose 0.5 MG; Start 09/11/16 at 18:30 Ondansetron HCl (Zofran Inj) 4 mg Q6H PRN IV NAUSEA AND/OR VOMITING; Start 09/11 at 18:30 Aspirin (Aspirin) 81 mg DAILY PO Last administered on 09/12/16 08:32; Admin Dose 81 MG; Start 09/12/16 at 09:00; Status Future Hold Acetaminophen (Tylenol Tab) 650 mg Q6H PRN PO PAIN LEVEL 1-3 OR FEVER; Start at 18:30 Acetaminophen/ Hydrocodone Bitart ([place] (5/325)) 1 tab Q6H PRN PO PAIN LEVEL 4 -6; Start 09/11/16 at 18:30 Morphine Sulfate (morphine) 2 mg Q4H PRN IV PAIN LEVEL 7-10; Start 09/11/16 at 18:30 Magnesium Hydroxide (Milk Of Mag) 30 ml DAILY PRN PO CONSTIPATION; Start at 18:30 Bisacodyl (Dulcolax) 5 mg DAILY PRN PO CONSTIPATION; Start 09/11/16 at 18:30 Insulin Glargine (Lantus) 8 unit DAILY@20 SC Last administered on 09/21/16 21: 54; Admin Dose 8 UNIT; Start 09/11/16 at 20:00 Atorvastatin Calcium (Lipitor) 20 mg QHS PO Last administered on 09/21/16 21: 56; Admin Dose 20 MG; Start 09/11/16 at 21:00 Folic Acid (Folic Acid) 1 mg DAILY PO Last administered on 09/21/16 08:12; Admin Dose 1 MG; Start 09/12/16 at 09:00 Hydralazine HCl (Apresoline) 10 mg Q6H PRN IV SBP>180 Last administered on 09:10; Admin Dose 10 MG; Start 09/11/16 at 19:00 Diagnostic Test (Pha) (Accucheck) 1 ea 02 XX ; Start 09/12/16 at 02:00 Miscellaneous Information 1 ea NOTE XX ; Start 09/11/16 at 19:30 Glucose (Glutose) 15 gm Q15M PRN PO DECREASED GLUCOSE; Start 09/11/16 at 19:30 Glucose (Glutose) 22.5 gm Q15M PRN PO DECREASED GLUCOSE; Start 09/11/16 at 19:30 Dextrose (D50w Syringe) 25 ml Q15M PRN IV DECREASED GLUCOSE; Start 09/11/16 at 19:30 Dextrose (D50w Syringe) 50 ml Q15M PRN IV DECREASED GLUCOSE; Start 09/11/16 at 19:30 Glucagon (Glucagen) 1 mg Q15M PRN IM DECREASED GLUCOSE; Start 09/11/16 at 19:30 Glucose (Glutose) 15 gm Q15M PRN BUCCAL DECREASED GLUCOSE; Start 09/11/16 at 19: 30 Metronidazole (Flagyl) 500 mg Q8 PO Last administered on 09/21/16 21:58; Admin Dose 500 MG; Start 09/13/16 at 14:00 Losartan Potassium (Cozaar) 50 mg BID PO Last administered on 09/21/16 21:58; Admin Dose 50 MG; Start 09/14/16 at 21:00 Nifedipine (Procardia Xl) 60 mg BID PO Last administered on 09/21/16 21:58; Admin Dose 60 MG; Start 09/14/16 at 21:00 Hydralazine HCl (Apresoline) 25 mg Q8 PO Last administered on 09/21/16 21:56; Admin Dose 25 MG; Start 09/15/16 at 14:00 Pantoprazole (Protonix Tab) 40 mg BID@06,18 PO Last administered on 09/21/16 17:29; Admin Dose 40 MG; Start 09/18/16 at 18:00 Oxycodone/ Acetaminophen (Percocet (5/ 325)) 1 tab Q4H PRN PO MILD PAIN (1-3); Start 09/22/16 at 13:00; Status UNV Oxycodone/ Acetaminophen (Percocet (5/ 325)) 2 tab Q4H PRN PO MODERATE PAIN (4- 6); Start 09/22/16 at 13:00; Status UNV Morphine Sulfate (morphine) 2 mg ONCE PRN IV SEVERE PAIN LEVEL 7-10; Start at 13:00; Status UNV Ondansetron HCl (Zofran Inj) 4 mg Q6H PRN IV NAUSEA; Start 09/22/16 at 13:00; Status UNV Metoclopramide HCl (Reglan) 10 mg Q6H IV ; Start 09/22/16 at 13:00; Status UNV Enoxaparin Sodium 85 mg 85 mg Q24H SC ; Start 09/22/16 at 13:00; Status UNV Cefazolin Sodium 50 ml @ 100 mls/hr Q8 IVPB ; Start 09/22/16 at 14:00; Status UNV Metronidazole (Flagyl 500 Mg (Pmx)) 100 ml @ 0 mls/hr Q8 IVPB ; Start 09/22/16 at 14:00; Status UNV CARLOS SOUZA Sep 22, 2016 12:45
[2016-09-22] MEDS: METOCLOPRAMIDE 10 MG INJ IV SCH ×2 (13:00→21:18)
[2016-09-22] MEDS ORDERED: morphine 2 MG INJ IV PRN (13:00)
[2016-09-22] MEDS ORDERED: OXYCODONE/ACETAMINOPHEN (5/325) TAB PO PRN ×2 (13:00)
[2016-09-22] MEDS ORDERED: ALBUTEROL 0.083% (NEB) 2.5 MG/3 ML AMP ONE (13:10)
[2016-09-22] MEDS ORDERED: ALBUTEROL 0.083% (NEB) 2.5 MG/3 ML AMP HHN STA (13:23)
[2016-09-22] MEDS: hydrALAzine 20 MG INJ IV PRN ×2 (13:24→14:14)
[2016-09-22] MEDS ORDERED: FUROSEMIDE 20 MG INJ IV ONE (14:00)
--- NOTE | 2016-09-22 14:15 | RADRPT ---
PROCEDURE: XR Chest. CLINICAL INDICATION: Shortness of breath. Abnormal breath sounds. TECHNIQUE: Single frontal view. COMPARISON: 09/11/2016. FINDINGS: There is mild atelectasis at the lung bases, unchanged. The lungs are otherwise clear. The heart size is normal. There is no pleural effusion. There is no pneumothorax. IMPRESSION: 1. Mild atelectasis at the lung bases. 2. Otherwise normal chest x-ray. RPTAT: QQ .Neil Mcbride MD, MD Date Time Electronically viewed and signed by .Neil Mcbride MD, on 09/22/2016 14:15 .R/
--- NOTE | 2016-09-22 14:25 | CONS ---
Date/Time of Note Date/Time of Note DATE: 09/22/16 TIME: 14:24 Assessment/Plan Assessment/Plan Chief Complaint/Hosp Course 66 up with adenocarcinoma of the sigmoid colon. #Colon cancer- CT with no signs of distant mets and biopsy confirming adenocarcinoma. Preop CEA is 1.4 -agree with surgical resection and the further recommendations after surgical path. surgery is scheduled for today # Anemia-secondary to iron deficiency. Ferritin at 5, will need iron supplementation and PRBC for hgb less than 7-8. Hg now stable and greater than 10 reason for GI blood loss is secondary to the sigmoid mass. 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 -ASA on hold for worsening anemia -management per primary team # Cdiff -now negative. diarrhea has improved Approximately 40 min were spent at patient's bedside and in coordination of his care Problems: Consultation Date/Type/Reason Admit Date/Time Sep 11, 2016 at 17:05 Initial Consult Date 09/16/16 Type of Consultation: hematology Reason for Consultation colon ca Referring Provider: SUSAN BRAUN BENCH PRECISION ASSEMBLER 24 HR Interval Summary Free Text/Dictation to go for surgery today. diarrhea has resolved Exam/Review of Systems Vital Signs Vitals Vital Signs Date Time Temp Pulse Resp B/P Pulse Ox O2 Delivery O2 Flow Rate FiO2 09/22/16 13:54 80 22 165/71 98 Nasal Cannula 09/22/16 13:11 97.4 09/22/16 13:05 30 Intake and Output 09/21/16 09/21/16 09/22/16 14:59 22:59 06:59 Intake Total 600 ml Balance 600 ml Exam Constitutional: alert, oriented Head: atraumatic, normocephalic Eyes: nl conjunctiva ENMT: nl external ears & nose Neck: non-tender, supple Respiratory: clear to auscultation, normal air movement Cardiovascular: regular rate and rhythm Gastrointestinal: soft Musculoskeletal: nl extremities to inspection Results Result Diagram: 09/22/16 0446 09/22/16 0446 Results 24 hrs Laboratory Tests Test 09/21/16 16:14 09/21/16 21:44 09/22/16 04:46 09/22/16 08:12 Bedside Glucose 114 91 90 Activated Partial Thromboplast Time 31.2 Alanine Aminotransferase (ALT/SGPT) 29 Albumin 3.3 Albumin/Globulin Ratio 1.03 Alkaline Phosphatase 71 Anion Gap 16 Aspartate Amino Transf (AST/SGOT) 27 Basophils # 0.1 Basophils % 1.8 Blood Urea Nitrogen 9 Calcium Level 8.4 Carbon Dioxide Level 26 Chloride Level 107 Creatinine 0.78 Direct Bilirubin 0.00 Eosinophils # 0.3 Eosinophils % 5.9 Globulin 3.20 Glucose Level 84 Hematocrit 33.8 L Hemoglobin 9.9 L INR International Normalized Ratio 1.05 Indirect Bilirubin 0.0 Lymphocytes # 0.9 Lymphocytes % 18.4 Mean Corpuscular Hemoglobin 22.3 L Mean Corpuscular Hemoglobin Concent 29.3 L Mean Corpuscular Volume 76.3 L Mean Platelet Volume 10.4 Monocytes # 0.5 Monocytes % 10.4 Neutrophils # 3.2 Neutrophils % 63.1 Nucleated Red Blood Cells # 0.0 Nucleated Red Blood Cells % 0.0 Platelet Count 256 Potassium Level 3.5 Prothrombin Time 13.7 Prothrombin Time Ratio 1.1 Red Blood Count 4.43 L Red Cell Distribution Width 28.5 H Sodium Level 145 H Total Bilirubin 0.0 L Total Protein 6.5 White Blood Count 5.1 # Medications Medications Current Medications Lorazepam (Ativan) 0.5 mg Q6H PRN IV ANXIETY Last administered on 09/12/16 03: 17; Admin Dose 0.5 MG; Start 09/11/16 at 18:30 Ondansetron HCl (Zofran Inj) 4 mg Q6H PRN IV NAUSEA AND/OR VOMITING; Start 09/11 at 18:30 Aspirin (Aspirin) 81 mg DAILY PO Last administered on 09/12/16 08:32; Admin Dose 81 MG; Start 09/12/16 at 09:00; Status Future Hold Acetaminophen (Tylenol Tab) 650 mg Q6H PRN PO PAIN LEVEL 1-3 OR FEVER; Start at 18:30 Acetaminophen/ Hydrocodone Bitart ([place] (5/325)) 1 tab Q6H PRN PO PAIN LEVEL 4 -6; Start 09/11/16 at 18:30 Morphine Sulfate (morphine) 2 mg Q4H PRN IV PAIN LEVEL 7-10; Start 09/11/16 at 18:30 Magnesium Hydroxide (Milk Of Mag) 30 ml DAILY PRN PO CONSTIPATION; Start at 18:30 Bisacodyl (Dulcolax) 5 mg DAILY PRN PO CONSTIPATION; Start 09/11/16 at 18:30 Insulin Glargine (Lantus) 8 unit DAILY@20 SC Last administered on 09/21/16 21: 54; Admin Dose 8 UNIT; Start 09/11/16 at 20:00 Atorvastatin Calcium (Lipitor) 20 mg QHS PO Last administered on 09/21/16 21: 56; Admin Dose 20 MG; Start 09/11/16 at 21:00 Folic Acid (Folic Acid) 1 mg DAILY PO Last administered on 09/21/16 08:12; Admin Dose 1 MG; Start 09/12/16 at 09:00 Hydralazine HCl (Apresoline) 10 mg Q6H PRN IV SBP>180 Last administered on 09:10; Admin Dose 10 MG; Start 09/11/16 at 19:00 Diagnostic Test (Pha) (Accucheck) 1 ea 02 XX ; Start 09/12/16 at 02:00 Miscellaneous Information 1 ea NOTE XX ; Start 09/11/16 at 19:30 Glucose (Glutose) 15 gm Q15M PRN PO DECREASED GLUCOSE; Start 09/11/16 at 19:30 Glucose (Glutose) 22.5 gm Q15M PRN PO DECREASED GLUCOSE; Start 09/11/16 at 19:30 Dextrose (D50w Syringe) 25 ml Q15M PRN IV DECREASED GLUCOSE; Start 09/11/16 at 19:30 Dextrose (D50w Syringe) 50 ml Q15M PRN IV DECREASED GLUCOSE; Start 09/11/16 at 19:30 Glucagon (Glucagen) 1 mg Q15M PRN IM DECREASED GLUCOSE; Start 09/11/16 at 19:30 Glucose (Glutose) 15 gm Q15M PRN BUCCAL DECREASED GLUCOSE; Start 09/11/16 at 19: 30 Metronidazole (Flagyl) 500 mg Q8 PO Last administered on 09/21/16 21:58; Admin Dose 500 MG; Start 09/13/16 at 14:00 Losartan Potassium (Cozaar) 50 mg BID PO Last administered on 09/21/16 21:58; Admin Dose 50 MG; Start 09/14/16 at 21:00 Nifedipine (Procardia Xl) 60 mg BID PO Last administered on 09/21/16 21:58; Admin Dose 60 MG; Start 09/14/16 at 21:00 Hydralazine HCl (Apresoline) 25 mg Q8 PO Last administered on 09/21/16 21:56; Admin Dose 25 MG; Start 09/15/16 at 14:00 Pantoprazole (Protonix Tab) 40 mg BID@06,18 PO Last administered on 09/21/16 17:29; Admin Dose 40 MG; Start 09/18/16 at 18:00 Oxycodone/ Acetaminophen (Percocet (5/ 325)) 1 tab Q4H PRN PO MILD PAIN (1-3); Start 09/22/16 at 13:00 Oxycodone/ Acetaminophen (Percocet (5/ 325)) 2 tab Q4H PRN PO MODERATE PAIN (4- 6); Start 09/22/16 at 13:00 Morphine Sulfate (morphine) 2 mg ONCE PRN IV SEVERE PAIN LEVEL 7-10; Start at 13:00; Stop 09/22/16 at 23:00 Ondansetron HCl (Zofran Inj) 4 mg Q6H PRN IV NAUSEA; Start 09/22/16 at 13:00 Metoclopramide HCl (Reglan) 10 mg Q6H IV ; Start 09/22/16 at 13:00 Enoxaparin Sodium 85 mg 85 mg Q24H SC ; Start 09/23/16 at 09:00 Cefazolin Sodium 50 ml @ 100 mls/hr Q8 IVPB ; Start 09/22/16 at 14:00 Metronidazole (Flagyl 500 Mg (Pmx)) 100 ml @ 0 mls/hr Q8 IVPB ; Start 09/22/16 at 14:00 ROBB PICKARD M.D. Sep 22, 2016 14:25
[2016-09-22 15:14] LABS: ADD UMIC YES; URINE BILIRUBIN (Dip) NEGATIVE (NEGATIVE); URINE BLOOD (Dip) 3+ (NEGATIVE); URINE COLOR LT. YELLOW (YELLOW); URINE GLUCOSE (Dip) NEGATIVE (NEGATIVE); URINE KETONES (Dip) NEGATIVE (NEGATIVE); URINE LEUKOCYTE ESTERASE (Dip) NEGATIVE (NEGATIVE); URINE NITRITE (Dip) NEGATIVE (NEGATIVE); URINE TOTAL PROTEIN (Dip) 1+ (NEGATIVE); URINE UROBILINOGEN (Dip) 0.2 E.U./dL (0.1-1.0)
[2016-09-22 15:50] LABS: BACTERIA,URINE FEW; TRANSITIONAL EPI CELLS,URINE FEW; URINE RBCS >50 /HPF (0)
--- NOTE | 2016-09-22 16:07 | CONS ---
Date/Time of Note Date/Time of Note DATE: 09/22/16 TIME: 16:06 Assessment/Plan Assessment/Plan Chief Complaint/Hosp Course SUBJECTIVE: No events overnight no diarrhea, no fevers. ANTIMICROBIALS: Patient is on Flagyl. PHYSICAL EXAMINATION: GENERAL: This is well-developed, elderly man who is in no distress. HEENT: Head atraumatic, normocephalic. Sclerae anicteric. Buccal mucosa dry. NECK: Supple, trachea midline. CHEST: Rise symmetrical. Breath sounds diminished to bases. HEART: S1, S2. ABDOMEN: Soft, bowel tones present. EXTREMITIES: Without cyanosis. ASSESSMENT: 1. Clostridium difficile colitis with resolving diarrhea. 2. Colon carcinoma; no signs of distant metastases per CT. 3. Anemia. 4. History of cerebrovascular accident. 5. Diabetes. PLAN: Patient remains stable. Pending colon resection. Oncology/surgical rec-s DW staff/pt Problems: Consultation Date/Type/Reason Admit Date/Time Sep 11, 2016 at 17:05 Initial Consult Date 09/16/16 Type of Consultation: id Referring Provider: SUSAN BRAUN CLAIMS DIRECTOR Exam/Review of Systems Vital Signs Vitals Vital Signs Date Time Temp Pulse Resp B/P Pulse Ox O2 Delivery O2 Flow Rate FiO2 09/22/16 15:47 98.5 90 20 165/72 97 09/22/16 15:14 Nasal Cannula 09/22/16 13:05 30 Intake and Output 09/21/16 09/21/16 09/22/16 15:00 23:00 07:00 Intake Total 600 ml Balance 600 ml Results Result Diagram: 09/22/16 0446 09/22/16 0446 Results 24 hrs Laboratory Tests Test 09/21/16 16:14 09/21/16 21:44 09/22/16 04:46 09/22/16 08:12 Bedside Glucose 114 91 90 Activated Partial Thromboplast Time 31.2 Alanine Aminotransferase (ALT/SGPT) 29 Albumin 3.3 Albumin/Globulin Ratio 1.03 Alkaline Phosphatase 71 Anion Gap 16 Aspartate Amino Transf (AST/SGOT) 27 Basophils # 0.1 Basophils % 1.8 Blood Urea Nitrogen 9 Calcium Level 8.4 Carbon Dioxide Level 26 Chloride Level 107 Creatinine 0.78 Direct Bilirubin 0.00 Eosinophils # 0.3 Eosinophils % 5.9 Globulin 3.20 Glucose Level 84 Hematocrit 33.8 L Hemoglobin 9.9 L INR International Normalized Ratio 1.05 Indirect Bilirubin 0.0 Lymphocytes # 0.9 Lymphocytes % 18.4 Mean Corpuscular Hemoglobin 22.3 L Mean Corpuscular Hemoglobin Concent 29.3 L Mean Corpuscular Volume 76.3 L Mean Platelet Volume 10.4 Monocytes # 0.5 Monocytes % 10.4 Neutrophils # 3.2 Neutrophils % 63.1 Nucleated Red Blood Cells # 0.0 Nucleated Red Blood Cells % 0.0 Platelet Count 256 Potassium Level 3.5 Prothrombin Time 13.7 Prothrombin Time Ratio 1.1 Red Blood Count 4.43 L Red Cell Distribution Width 28.5 H Sodium Level 145 H Total Bilirubin 0.0 L Total Protein 6.5 White Blood Count 5.1 # Test 09/22/16 13:00 Urine Bacteria FEW Urine Bilirubin NEGATIVE Urine Clarity CLOUDY H Urine Color LT. YELLOW Urine Glucose NEGATIVE Urine Hemoglobin 3+ H Urine Ketones NEGATIVE Urine Leukocyte Esterase NEGATIVE Urine Microscopic RBC >50 Urine Microscopic WBC 0-2 Urine Nitrite NEGATIVE Urine Other Urine Specific [place] 1.015 Urine Total Protein 1+ H Urine Transitional Epithelial Cells FEW Urine Urobilinogen 0.2 E.U./dL Urine pH 6.0 Medications Medications Current Medications Lorazepam (Ativan) 0.5 mg Q6H PRN IV ANXIETY Last administered on 09/12/16 03: 17; Admin Dose 0.5 MG; Start 09/11/16 at 18:30 Ondansetron HCl (Zofran Inj) 4 mg Q6H PRN IV NAUSEA AND/OR VOMITING; Start 09/11 at 18:30 Aspirin (Aspirin) 81 mg DAILY PO Last administered on 09/12/16 08:32; Admin Dose 81 MG; Start 09/12/16 at 09:00; Status Future Hold Acetaminophen (Tylenol Tab) 650 mg Q6H PRN PO PAIN LEVEL 1-3 OR FEVER; Start at 18:30 Acetaminophen/ Hydrocodone Bitart ([place] (5/325)) 1 tab Q6H PRN PO PAIN LEVEL 4 -6; Start 09/11/16 at 18:30 Morphine Sulfate (morphine) 2 mg Q4H PRN IV PAIN LEVEL 7-10; Start 09/11/16 at 18:30 Magnesium Hydroxide (Milk Of Mag) 30 ml DAILY PRN PO CONSTIPATION; Start at 18:30 Bisacodyl (Dulcolax) 5 mg DAILY PRN PO CONSTIPATION; Start 09/11/16 at 18:30 Insulin Glargine (Lantus) 8 unit DAILY@20 SC Last administered on 09/21/16 21: 54; Admin Dose 8 UNIT; Start 09/11/16 at 20:00 Atorvastatin Calcium (Lipitor) 20 mg QHS PO Last administered on 09/21/16 21: 56; Admin Dose 20 MG; Start 09/11/16 at 21:00 Folic Acid (Folic Acid) 1 mg DAILY PO Last administered on 09/21/16 08:12; Admin Dose 1 MG; Start 09/12/16 at 09:00 Hydralazine HCl (Apresoline) 10 mg Q6H PRN IV SBP>180 Last administered on 09:10; Admin Dose 10 MG; Start 09/11/16 at 19:00 Diagnostic Test (Pha) (Accucheck) 1 ea 02 XX ; Start 09/12/16 at 02:00 Miscellaneous Information 1 ea NOTE XX ; Start 09/11/16 at 19:30 Glucose (Glutose) 15 gm Q15M PRN PO DECREASED GLUCOSE; Start 09/11/16 at 19:30 Glucose (Glutose) 22.5 gm Q15M PRN PO DECREASED GLUCOSE; Start 09/11/16 at 19:30 Dextrose (D50w Syringe) 25 ml Q15M PRN IV DECREASED GLUCOSE; Start 09/11/16 at 19:30 Dextrose (D50w Syringe) 50 ml Q15M PRN IV DECREASED GLUCOSE; Start 09/11/16 at 19:30 Glucagon (Glucagen) 1 mg Q15M PRN IM DECREASED GLUCOSE; Start 09/11/16 at 19:30 Glucose (Glutose) 15 gm Q15M PRN BUCCAL DECREASED GLUCOSE; Start 09/11/16 at 19: 30 Metronidazole (Flagyl) 500 mg Q8 PO Last administered on 09/21/16 21:58; Admin Dose 500 MG; Start 09/13/16 at 14:00 Losartan Potassium (Cozaar) 50 mg BID PO Last administered on 09/21/16 21:58; Admin Dose 50 MG; Start 09/14/16 at 21:00 Nifedipine (Procardia Xl) 60 mg BID PO Last administered on 09/21/16 21:58; Admin Dose 60 MG; Start 09/14/16 at 21:00 Hydralazine HCl (Apresoline) 25 mg Q8 PO Last administered on 09/21/16 21:56; Admin Dose 25 MG; Start 09/15/16 at 14:00 Pantoprazole (Protonix Tab) 40 mg BID@06,18 PO Last administered on 09/21/16 17:29; Admin Dose 40 MG; Start 09/18/16 at 18:00 Oxycodone/ Acetaminophen (Percocet (5/ 325)) 1 tab Q4H PRN PO MILD PAIN (1-3); Start 09/22/16 at 13:00 Oxycodone/ Acetaminophen (Percocet (5/ 325)) 2 tab Q4H PRN PO MODERATE PAIN (4- 6); Start 09/22/16 at 13:00 Morphine Sulfate (morphine) 2 mg ONCE PRN IV SEVERE PAIN LEVEL 7-10; Start at 13:00; Stop 09/22/16 at 23:00 Ondansetron HCl (Zofran Inj) 4 mg Q6H PRN IV NAUSEA; Start 09/22/16 at 13:00 Metoclopramide HCl (Reglan) 10 mg Q6H IV ; Start 09/22/16 at 13:00 Enoxaparin Sodium 85 mg 85 mg Q24H SC ; Start 09/23/16 at 09:00 Cefazolin Sodium 50 ml @ 100 mls/hr Q8 IVPB ; Start 09/22/16 at 14:00 Metronidazole (Flagyl 500 Mg (Pmx)) 100 ml @ 0 mls/hr Q8 IVPB ; Start 09/22/16 at 14:00 DI HADLEY NP Sep 22, 2016 16:06
[2016-09-22] MEDS: CEFAZOLIN 1 GM/50 ML (PMX) 50 ML IVPB SCH ×2 (17:07→22:43)
[2016-09-22] MEDS: metroNIDAZOLE 500 MG/NS (PMX) 100 ML IVPB SCH ×2 (17:07→22:43)
[2016-09-22] MEDS: ATORVASTATIN 20 MG TAB PO SCH (21:17)
[2016-09-22] MEDS: INSULIN GLARGINE [LANtus] 3 ML PEN SC SCH (21:29)
[2016-09-23] VITALS (12 sets, daily range): BP systolic 125–173; BP diastolic 61–71; PULSE 81–102; RESP 18–21
[2016-09-23] MEDS: ACETAMINOPHEN 325 MG TAB PO PRN ×2 (00:22→05:53)
[2016-09-23] MEDS: METOCLOPRAMIDE 10 MG INJ IV SCH ×4 (01:50→18:05)
[2016-09-23] MEDS: ACCUCHECK AT 2AM (Patients on SS coverage) XX SCH (02:00)
[2016-09-23] MEDS: CEFAZOLIN 1 GM/50 ML (PMX) 50 ML IVPB SCH ×3 (05:51→22:09)
[2016-09-23] MEDS: metroNIDAZOLE 500 MG/NS (PMX) 100 ML IVPB SCH ×3 (05:51→22:08)
[2016-09-23] MEDS: metroNIDAZOLE 500 MG TAB PO SCH ×3 (05:52→22:08)
[2016-09-23] MEDS: PANTOPRAZOLE (EC) 40 MG TAB PO SCH ×2 (05:53→18:05)
[2016-09-23 06:27] LABS: ADD SCAN DIFF NO
[2016-09-23 06:55] LABS: ABNORMAL IP MESSAGE 1; BASOPHILS % 0.3 % (0.0-2.0); HEMATOCRIT 32.1 % (42.0-52.0); HEMOGLOBIN 9.7 g/dl (14.0-18.0); LYMPHOCYTES # 0.9 10^3/ul (0.8-2.9); LYMPHOCYTES % 7.5 % (15.0-51.0); MEAN CORPUSCULAR HEMOGLOBIN 23.1 pg (29.0-33.0); MEAN CORPUSCULAR HGB CONC 30.2 g/dl (32.0-37.0); MEAN CORPUSCULAR VOLUME 76.4 fl (82.0-101.0); MONOCYTE # 0.7 10^3/ul (0.3-0.9); NEUTROPHIL # 10.3 10^3/ul (1.6-7.5); NEUTROPHILS % 85.9 % (39.0-77.0); PLATELET COUNT 264 10^3/UL (140-415); RED CELL DISTRIBUTION WIDTH 29.4 % (11.5-14.5)
[2016-09-23] MEDS: INSULIN ASPART [NOVOLOG] 3 ML PEN SC SCH ×7 (07:44→20:16)
[2016-09-23] MEDS: NIFEdipine (XL) 60 MG TAB PO SCH ×2 (08:23→20:06)
[2016-09-23] MEDS: FOLIC ACID 1 MG TAB PO SCH (08:23)
[2016-09-23] MEDS: LOSARTAN 50 MG TAB PO SCH ×2 (08:24→20:07)
[2016-09-23] MEDS: ENOXAPARIN 100 MG/ML SYG SC SCH (08:26)
[2016-09-23] MEDS: HYDROCODONE/APAP (5/325) TAB PO PRN ×2 (09:31→20:06)
--- NOTE | 2016-09-23 12:08 | PN ---
DATE: 09/23/2016 Postoperative day #1. The patient has been afebrile throughout. He is awake and alert and in good spirits. His abdominal examination is benign. His MARQUISE drainage is serosanguineous. He is toleratin g p.o. PLAN: Continue medical management. He will need PT for progressive mobilization and ambulation. Dictated By: MECCA DE LEON/ABDOULAYE Conf#: [id number] DID#: [id number]
[2016-09-23] MEDS: morphine 2 MG INJ IV PRN (14:09)
--- NOTE | 2016-09-23 14:54 | PN ---
Date/Time of Note Date/Time of Note DATE: 09/23/16 TIME: 14:49 Assessment/Plan VTE Prophylaxis VTE Prophylaxis Intervention: LMWH Lines/Catheters IV C[facility] Type [facility]from [facility] Saline Lock Urinary Cath still in place: No Assessment/Plan Chief Complaint/Hosp Course Assessment and plan 1. Acute encephalopathy. Improved . Will monitor 2. Acute/recent right COLLAR STITCHER territory infarcts. Antiplatelet therapy on hold due to worsening anemia. stable at present. on lovenox 3. Accelerated hypertension. Continue antihypertensives and adjust as needed. stable 4. Type 2 diabetes. Patient noted with A1c of 6.1. Continue insulin regimen. 5. Dyslipidemia. Continue on statin medication 6. Microcytic hypochromic anemia. Likely secondary to GI bleed and iron deficiency. Continue on iron supplement 7. Circumferential sigmoid colon mass measuring 5 cm. patient repeat C. difficile culture was negative.s/p surgical intervention (open sigmoid colon resection) 09/22/2016. Will follow up post op care 8. C. difficile colitis. Recent repeat culture was negative. Continue on antibiotics per ID recommendations DVT Provox: SCDs GERD prophylaxis: PPI Disposition and plan:s/p surgical intervention of colonic mass on 09/22/2016. physical therapy ordered. follow up with oncology recs. d/c when cleared by consultants Discussed plan of care with Dr. Dixon Problems: Subjective 24 Hr Interval Summary Free Text/Dictation no s/s of distress. denies any pain at this time. family at bedside Exam/Review of Systems Vital Signs Vitals Vital Signs Date Time Temp Pulse Resp B/P Pulse Ox O2 Delivery O2 Flow Rate FiO2 09/23/16 12:07 81 09/23/16 11:36 97.6 18 125/61 94 09/23/16 05:33 2.0 09/22/16 15:14 Nasal Cannula 09/22/16 13:05 30 Intake and Output 09/22/16 09/22/16 09/23/16 15:00 23:00 07:00 Intake Total 1400 ml 400 ml Output Total 330 ml 760 ml 700 ml Balance 1070 ml -760 ml -300 ml Exam General: alert, comfortable Eyes: Equal round. anicteric sclerae Neck: No apparent JVD today Cardiac: regular rate Pulmonary: No wheezing or rhonchi GI: Soft, slightly distended Extremities: No edema bilateral lower extremities Skin: surgical site abd cdi. MARQUISE drain on right abd Neurologic: Alert and oriented 3 Results Result Diagram: 09/23/16 0543 09/22/16 0446 Results 24 hrs Laboratory Tests Test 09/22/16 18:05 09/22/16 21:23 09/23/16 05:43 09/23/16 07:41 Bedside Glucose 126 117 119 Basophils # 0.0 Basophils % 0.3 Eosinophils # 0.0 Eosinophils % 0.0 Hematocrit 32.1 L Hemoglobin 9.7 L Lymphocytes # 0.9 Lymphocytes % 7.5 L Mean Corpuscular Hemoglobin 23.1 L Mean Corpuscular Hemoglobin Concent 30.2 L Mean Corpuscular Volume 76.4 L Mean Platelet Volume Monocytes # 0.7 Monocytes % 6.0 Neutrophils # 10.3 H Neutrophils % 85.9 H Nucleated Red Blood Cells # 0.0 Nucleated Red Blood Cells % 0.0 Platelet Count 264 Red Blood Count 4.20 L Red Cell Distribution Width 29.4 H White Blood Count 12.0 #H Test 09/23/16 12:02 Bedside Glucose 124 Medications Medications Current Medications Lorazepam (Ativan) 0.5 mg Q6H PRN IV ANXIETY Last administered on 09/12/16 03: 17; Admin Dose 0.5 MG; Start 09/11/16 at 18:30 Ondansetron HCl (Zofran Inj) 4 mg Q6H PRN IV NAUSEA AND/OR VOMITING; Start 09/11 at 18:30 Aspirin (Aspirin) 81 mg DAILY PO Last administered on 09/12/16 08:32; Admin Dose 81 MG; Start 09/12/16 at 09:00; Status Future Hold Acetaminophen (Tylenol Tab) 650 mg Q6H PRN PO PAIN LEVEL 1-3 OR FEVER Last administered on 09/23/16 05:53; Admin Dose 650 MG; Start 09/11/16 at 18:30 Acetaminophen/ Hydrocodone Bitart ([place] (5/325)) 1 tab Q6H PRN PO PAIN LEVEL 4 -6 Last administered on 09/23/16 09:31; Admin Dose 1 TAB; Start 09/11/16 at 18: 30 Morphine Sulfate (morphine) 2 mg Q4H PRN IV PAIN LEVEL 7-10 Last administered on 09/23/16 14:09; Admin Dose 2 MG; Start 09/11/16 at 18:30 Magnesium Hydroxide (Milk Of Mag) 30 ml DAILY PRN PO CONSTIPATION; Start at 18:30 Bisacodyl (Dulcolax) 5 mg DAILY PRN PO CONSTIPATION; Start 09/11/16 at 18:30 Insulin Glargine (Lantus) 8 unit DAILY@20 SC Last administered on 09/22/16 21: 29; Admin Dose 8 UNIT; Start 09/11/16 at 20:00 Atorvastatin Calcium (Lipitor) 20 mg QHS PO Last administered on 09/22/16 21: 17; Admin Dose 20 MG; Start 09/11/16 at 21:00 Folic Acid (Folic Acid) 1 mg DAILY PO Last administered on 09/23/16 08:23; Admin Dose 1 MG; Start 09/12/16 at 09:00 Hydralazine HCl (Apresoline) 10 mg Q6H PRN IV SBP>180 Last administered on 09:10; Admin Dose 10 MG; Start 09/11/16 at 19:00 Diagnostic Test (Pha) (Accucheck) 1 ea 02 XX ; Start 09/12/16 at 02:00 Miscellaneous Information 1 ea NOTE XX ; Start 09/11/16 at 19:30 Glucose (Glutose) 15 gm Q15M PRN PO DECREASED GLUCOSE; Start 09/11/16 at 19:30 Glucose (Glutose) 22.5 gm Q15M PRN PO DECREASED GLUCOSE; Start 09/11/16 at 19:30 Dextrose (D50w Syringe) 25 ml Q15M PRN IV DECREASED GLUCOSE; Start 09/11/16 at 19:30 Dextrose (D50w Syringe) 50 ml Q15M PRN IV DECREASED GLUCOSE; Start 09/11/16 at 19:30 Glucagon (Glucagen) 1 mg Q15M PRN IM DECREASED GLUCOSE; Start 09/11/16 at 19:30 Glucose (Glutose) 15 gm Q15M PRN BUCCAL DECREASED GLUCOSE; Start 09/11/16 at 19: 30 Metronidazole (Flagyl) 500 mg Q8 PO Last administered on 09/23/16 13:16; Admin Dose 500 MG; Start 09/13/16 at 14:00 Losartan Potassium (Cozaar) 50 mg BID PO Last administered on 09/23/16 08:24; Admin Dose 50 MG; Start 09/14/16 at 21:00 Nifedipine (Procardia Xl) 60 mg BID PO Last administered on 09/23/16 08:23; Admin Dose 60 MG; Start 09/14/16 at 21:00 Hydralazine HCl (Apresoline) 25 mg Q8 PO Last administered on 09/23/16 13:16; Admin Dose 25 MG; Start 09/15/16 at 14:00 Pantoprazole (Protonix Tab) 40 mg BID@18 PO Last administered on 09/23/16 05:53; Admin Dose 40 MG; Start 09/18/16 at 18:00 Oxycodone/ Acetaminophen (Percocet (5/ 325)) 1 tab Q4H PRN PO MILD PAIN (1-3); Start 09/22/16 at 13:00 Oxycodone/ Acetaminophen (Percocet (5/ 325)) 2 tab Q4H PRN PO MODERATE PAIN (4- 6); Start 09/22/16 at 13:00 Ondansetron HCl (Zofran Inj) 4 mg Q6H PRN IV NAUSEA; Start 09/22/16 at 13:00 Metoclopramide HCl (Reglan) 10 mg Q6H IV Last administered on 09/23/16 13:15; Admin Dose 10 MG; Start 09/22/16 at 13:00 Enoxaparin Sodium 85 mg 85 mg Q24H SC Last administered on 09/23/16 08:26; Admin Dose 85 MG; Start 09/23/16 at 09:00 Cefazolin Sodium 50 ml @ 100 mls/hr Q8 IVPB Last administered on 09/23/16 13: 15; Admin Dose 100 MLS/HR; Start 09/22/16 at 14:00 Metronidazole (Flagyl 500 Mg (Pmx)) 100 ml @ 0 mls/hr Q8 IVPB Last administered on 09/23/16 14:07; Admin Dose 100 MLS/HR; Start 09/22/16 at 14:00 CARLOS SOUZA Sep 23, 2016 14:54
--- NOTE | 2016-09-23 17:00 | CONS ---
Date/Time of Note Date/Time of Note DATE: 09/23/16 TIME: 16:58 Assessment/Plan Assessment/Plan Chief Complaint/Hosp Course SUBJECTIVE: No events overnight no diarrhea, no fevers. ANTIMICROBIALS: Flagyl, Ancef. PHYSICAL EXAMINATION: GENERAL: This is well-developed, elderly man who is in no distress. HEENT: Head atraumatic, normocephalic. Sclerae anicteric. Buccal mucosa dry. NECK: Supple, trachea midline. CHEST: Rise symmetrical. Breath sounds diminished to bases. HEART: S1, S2. ABDOMEN: Soft, bowel tones present. EXTREMITIES: Without cyanosis. ASSESSMENT: 1. Clostridium difficile colitis with resolving diarrhea. 2. Colon carcinoma; no signs of distant metastases per CT, s/p resection. 3. Anemia. 4. History of cerebrovascular accident. 5. Diabetes. PLAN: Patient remains stable. S/p colon resection 09/23. Will f/u oncology/ surgical rec-s, incentive spirometry DW staff/pt Problems: Consultation Date/Type/Reason Admit Date/Time Sep 11, 2016 at 17:05 Initial Consult Date 09/16/16 Type of Consultation: id Referring Provider: SUSAN BRAUN FI[employer] INSTRUCTOR Exam/Review of Systems Vital Signs Vitals Vital Signs Date Time Temp Pulse Resp B/P Pulse Ox O2 Delivery O2 Flow Rate FiO2 09/23/16 16:05 85 09/23/16 15:21 98.2 18 144/66 93 09/23/16 05:33 2.0 09/22/16 15:14 Nasal Cannula 09/22/16 13:05 30 Intake and Output 09/22/16 09/22/16 09/23/16 15:00 23:00 07:00 Intake Total 1400 ml 400 ml Output Total 330 ml 760 ml 700 ml Balance 1070 ml -760 ml -300 ml Results Result Diagram: 09/23/16 0543 09/22/16 0446 Results 24 hrs Laboratory Tests Test 09/22/16 18:05 09/22/16 21:23 09/23/16 05:43 09/23/16 07:41 Bedside Glucose 126 117 119 Basophils # 0.0 Basophils % 0.3 Eosinophils # 0.0 Eosinophils % 0.0 Hematocrit 32.1 L Hemoglobin 9.7 L Lymphocytes # 0.9 Lymphocytes % 7.5 L Mean Corpuscular Hemoglobin 23.1 L Mean Corpuscular Hemoglobin Concent 30.2 L Mean Corpuscular Volume 76.4 L Mean Platelet Volume Monocytes # 0.7 Monocytes % 6.0 Neutrophils # 10.3 H Neutrophils % 85.9 H Nucleated Red Blood Cells # 0.0 Nucleated Red Blood Cells % 0.0 Platelet Count 264 Red Blood Count 4.20 L Red Cell Distribution Width 29.4 H White Blood Count 12.0 #H Test 09/23/16 12:02 Bedside Glucose 124 Medications Medications Current Medications Lorazepam (Ativan) 0.5 mg Q6H PRN IV ANXIETY Last administered on 09/12/16 03: 17; Admin Dose 0.5 MG; Start 09/11/16 at 18:30 Ondansetron HCl (Zofran Inj) 4 mg Q6H PRN IV NAUSEA AND/OR VOMITING; Start 09/11 at 18:30 Aspirin (Aspirin) 81 mg DAILY PO Last administered on 09/12/16 08:32; Admin Dose 81 MG; Start 09/12/16 at 09:00; Status Future Hold Acetaminophen (Tylenol Tab) 650 mg Q6H PRN PO PAIN LEVEL 1-3 OR FEVER Last administered on 09/23/16 05:53; Admin Dose 650 MG; Start 09/11/16 at 18:30 Acetaminophen/ Hydrocodone Bitart ([place] (5/325)) 1 tab Q6H PRN PO PAIN LEVEL 4 -6 Last administered on 09/23/16 09:31; Admin Dose 1 TAB; Start 09/11/16 at 18: 30 Morphine Sulfate (morphine) 2 mg Q4H PRN IV PAIN LEVEL 7-10 Last administered on 09/23/16 14:09; Admin Dose 2 MG; Start 09/11/16 at 18:30 Magnesium Hydroxide (Milk Of Mag) 30 ml DAILY PRN PO CONSTIPATION; Start at 18:30 Bisacodyl (Dulcolax) 5 mg DAILY PRN PO CONSTIPATION; Start 09/11/16 at 18:30 Insulin Glargine (Lantus) 8 unit DAILY@20 SC Last administered on 09/22/16 21: 29; Admin Dose 8 UNIT; Start 09/11/16 at 20:00 Atorvastatin Calcium (Lipitor) 20 mg QHS PO Last administered on 09/22/16 21: 17; Admin Dose 20 MG; Start 09/11/16 at 21:00 Folic Acid (Folic Acid) 1 mg DAILY PO Last administered on 09/23/16 08:23; Admin Dose 1 MG; Start 09/12/16 at 09:00 Hydralazine HCl (Apresoline) 10 mg Q6H PRN IV SBP>180 Last administered on 09:10; Admin Dose 10 MG; Start 09/11/16 at 19:00 Diagnostic Test (Pha) (Accucheck) 1 ea 02 XX ; Start 09/12/16 at 02:00 Miscellaneous Information 1 ea NOTE XX ; Start 09/11/16 at 19:30 Glucose (Glutose) 15 gm Q15M PRN PO DECREASED GLUCOSE; Start 09/11/16 at 19:30 Glucose (Glutose) 22.5 gm Q15M PRN PO DECREASED GLUCOSE; Start 09/11/16 at 19:30 Dextrose (D50w Syringe) 25 ml Q15M PRN IV DECREASED GLUCOSE; Start 09/11/16 at 19:30 Dextrose (D50w Syringe) 50 ml Q15M PRN IV DECREASED GLUCOSE; Start 09/11/16 at 19:30 Glucagon (Glucagen) 1 mg Q15M PRN IM DECREASED GLUCOSE; Start 09/11/16 at 19:30 Glucose (Glutose) 15 gm Q15M PRN BUCCAL DECREASED GLUCOSE; Start 09/11/16 at 19: 30 Metronidazole (Flagyl) 500 mg Q8 PO Last administered on 09/23/16 13:16; Admin Dose 500 MG; Start 09/13/16 at 14:00 Losartan Potassium (Cozaar) 50 mg BID PO Last administered on 09/23/16 08:24; Admin Dose 50 MG; Start 09/14/16 at 21:00 Nifedipine (Procardia Xl) 60 mg BID PO Last administered on 09/23/16 08:23; Admin Dose 60 MG; Start 09/14/16 at 21:00 Hydralazine HCl (Apresoline) 25 mg Q8 PO Last administered on 09/23/16 13:16; Admin Dose 25 MG; Start 09/15/16 at 14:00 Pantoprazole (Protonix Tab) 40 mg BID@18 PO Last administered on 09/23/16 05:53; Admin Dose 40 MG; Start 09/18/16 at 18:00 Oxycodone/ Acetaminophen (Percocet (5/ 325)) 1 tab Q4H PRN PO MILD PAIN (1-3); Start 09/22/16 at 13:00 Oxycodone/ Acetaminophen (Percocet (5/ 325)) 2 tab Q4H PRN PO MODERATE PAIN (4- 6); Start 09/22/16 at 13:00 Ondansetron HCl (Zofran Inj) 4 mg Q6H PRN IV NAUSEA; Start 09/22/16 at 13:00 Metoclopramide HCl (Reglan) 10 mg Q6H IV Last administered on 09/23/16 13:15; Admin Dose 10 MG; Start 09/22/16 at 13:00 Enoxaparin Sodium 85 mg 85 mg Q24H SC Last administered on 09/23/16 08:26; Admin Dose 85 MG; Start 09/23/16 at 09:00 Cefazolin Sodium 50 ml @ 100 mls/hr Q8 IVPB Last administered on 09/23/16 13: 15; Admin Dose 100 MLS/HR; Start 09/22/16 at 14:00 Metronidazole (Flagyl 500 Mg (Pmx)) 100 ml @ 0 mls/hr Q8 IVPB Last administered on 09/23/16 14:07; Admin Dose 100 MLS/HR; Start 09/22/16 at 14:00 DI HADLEY NP Sep 23, 2016 17:00
--- NOTE | 2016-09-23 18:01 | PN ---
Date/Time of Note Date/Time of Note DATE: 09/23/16 TIME: 17:57 Assessment/Plan VTE Prophylaxis VTE Prophylaxis Intervention: LMWH Lines/Catheters IV Catheter Type (from Nrs): Saline Lock Urinary Cath still in place: No Subjective 24 Hr Interval Summary Free Text/Dictation anesthesia note: A 66 year male s/p ant colectomy pod #1. pt is satble, no n/v, pain is controlled, no headache or itching. Exam/Review of Systems Vital Signs Vitals Vital Signs Date Time Temp Pulse Resp B/P Pulse Ox O2 Delivery O2 Flow Rate FiO2 09/23/16 17:06 2.0 09/23/16 16:05 85 09/23/16 15:21 98.2 18 144/66 93 09/22/16 15:14 Nasal Cannula 09/22/16 13:05 30 Intake and Output 09/22/16 09/22/16 09/23/16 15:00 23:00 07:00 Intake Total 1400 ml 400 ml Output Total 330 ml 760 ml 700 ml Balance 1070 ml -760 ml -300 ml Results Result Diagram: 09/23/16 0543 09/22/16 0446 Results 24 hrs Laboratory Tests Test 09/22/16 18:05 09/22/16 21:23 09/23/16 05:43 09/23/16 07:41 Bedside Glucose 126 117 119 Basophils # 0.0 Basophils % 0.3 Eosinophils # 0.0 Eosinophils % 0.0 Hematocrit 32.1 L Hemoglobin 9.7 L Lymphocytes # 0.9 Lymphocytes % 7.5 L Mean Corpuscular Hemoglobin 23.1 L Mean Corpuscular Hemoglobin Concent 30.2 L Mean Corpuscular Volume 76.4 L Mean Platelet Volume Monocytes # 0.7 Monocytes % 6.0 Neutrophils # 10.3 H Neutrophils % 85.9 H Nucleated Red Blood Cells # 0.0 Nucleated Red Blood Cells % 0.0 Platelet Count 264 Red Blood Count 4.20 L Red Cell Distribution Width 29.4 H White Blood Count 12.0 #H Test 09/23/16 12:02 09/23/16 16:54 Bedside Glucose 124 129 Medications Medications Current Medications Lorazepam (Ativan) 0.5 mg Q6H PRN IV ANXIETY Last administered on 09/12/16t 03: 17; Admin Dose 0.5 MG; Start 09/11/16 at 18:30 Ondansetron HCl (Zofran Inj) 4 mg Q6H PRN IV NAUSEA AND/OR VOMITING; Start 09/11 at 18:30 Aspirin (Aspirin) 81 mg DAILY PO Last administered on 09/12/16 08:32; Admin Dose 81 MG; Start 09/12/16 at 09:00; Status Future Hold Acetaminophen (Tylenol Tab) 650 mg Q6H PRN PO PAIN LEVEL 1-3 OR FEVER Last administered on 09/23/16 05:53; Admin Dose 650 MG; Start 09/11/16 at 18:30 Acetaminophen/ Hydrocodone Bitart ([place] (5/325)) 1 tab Q6H PRN PO PAIN LEVEL 4 -6 Last administered on 09/23/16 09:31; Admin Dose 1 TAB; Start 09/11/16 at 18: 30 Morphine Sulfate (morphine) 2 mg Q4H PRN IV PAIN LEVEL 7-10 Last administered on 09/23/16 14:09; Admin Dose 2 MG; Start 09/11/16 at 18:30 Magnesium Hydroxide (Milk Of Mag) 30 ml DAILY PRN PO CONSTIPATION; Start at 18:30 Bisacodyl (Dulcolax) 5 mg DAILY PRN PO CONSTIPATION; Start 09/11/16 at 18:30 Insulin Glargine (Lantus) 8 unit DAILY@20 SC Last administered on 09/22/16 21: 29; Admin Dose 8 UNIT; Start 09/11/16 at 20:00 Atorvastatin Calcium (Lipitor) 20 mg QHS PO Last administered on 09/22/16 21: 17; Admin Dose 20 MG; Start 09/11/16 at 21:00 Folic Acid (Folic Acid) 1 mg DAILY PO Last administered on 09/23/16 08:23; Admin Dose 1 MG; Start 09/12/16 at 09:00 Hydralazine HCl (Apresoline) 10 mg Q6H PRN IV SBP>180 Last administered on 09:10; Admin Dose 10 MG; Start 09/11/16 at 19:00 Diagnostic Test (Pha) (Accucheck) 1 ea 02 XX ; Start 09/12/16 at 02:00 Miscellaneous Information 1 ea NOTE XX ; Start 09/11/16 at 19:30 Glucose (Glutose) 15 gm Q15M PRN PO DECREASED GLUCOSE; Start 09/11/16 at 19:30 Glucose (Glutose) 22.5 gm Q15M PRN PO DECREASED GLUCOSE; Start 09/11/16 at 19:30 Dextrose (D50w Syringe) 25 ml Q15M PRN IV DECREASED GLUCOSE; Start 09/11/16 at 19:30 Dextrose (D50w Syringe) 50 ml Q15M PRN IV DECREASED GLUCOSE; Start 09/11/16 at 19:30 Glucagon (Glucagen) 1 mg Q15M PRN IM DECREASED GLUCOSE; Start 09/11/16 at 19:30 Glucose (Glutose) 15 gm Q15M PRN BUCCAL DECREASED GLUCOSE; Start 09/11/16 at 19: 30 Metronidazole (Flagyl) 500 mg Q8 PO Last administered on 09/23/16 13:16; Admin Dose 500 MG; Start 09/13/16 at 14:00 Losartan Potassium (Cozaar) 50 mg BID PO Last administered on 09/23/16 08:24; Admin Dose 50 MG; Start 09/14/16 at 21:00 Nifedipine (Procardia Xl) 60 mg BID PO Last administered on 09/23/16 08:23; Admin Dose 60 MG; Start 09/14/16 at 21:00 Hydralazine HCl (Apresoline) 25 mg Q8 PO Last administered on 09/23/16 13:16; Admin Dose 25 MG; Start 09/15/16 at 14:00 Pantoprazole (Protonix Tab) 40 mg BID@,18 PO Last administered on 09/23/16 05:53; Admin Dose 40 MG; Start 09/18/16 at 18:00 Oxycodone/ Acetaminophen (Percocet (5/ 325)) 1 tab Q4H PRN PO MILD PAIN (1-3); Start 09/22/16 at 13:00 Oxycodone/ Acetaminophen (Percocet (5/ 325)) 2 tab Q4H PRN PO MODERATE PAIN (4- 6); Start 09/22/16 at 13:00 Ondansetron HCl (Zofran Inj) 4 mg Q6H PRN IV NAUSEA; Start 09/22/16 at 13:00 Metoclopramide HCl (Reglan) 10 mg Q6H IV Last administered on 09/23/16 13:15; Admin Dose 10 MG; Start 09/22/16 at 13:00 Enoxaparin Sodium 85 mg 85 mg Q24H SC Last administered on 09/23/16 08:26; Admin Dose 85 MG; Start 09/23/16 at 09:00 Cefazolin Sodium 50 ml @ 100 mls/hr Q8 IVPB Last administered on 09/23/16 13: 15; Admin Dose 100 MLS/HR; Start 09/22/16 at 14:00 Metronidazole (Flagyl 500 Mg (Pmx)) 100 ml @ 0 mls/hr Q8 IVPB Last administered on 09/23/16 14:07; Admin Dose 100 MLS/HR; Start 09/22/16 at 14:00 NANDO WHITTAKER MD Sep 23, 2016 18:01
[2016-09-23] MEDS: ATORVASTATIN 20 MG TAB PO SCH (20:06)
[2016-09-23] MEDS: INSULIN GLARGINE [LANtus] 3 ML PEN SC SCH (20:14)
[2016-09-24] VITALS (13 sets, daily range): BP systolic 130–143; BP diastolic 61–65; PULSE 87–107; RESP 18–22
[2016-09-24] MEDS: METOCLOPRAMIDE 10 MG INJ IV SCH ×4 (01:58→18:09)
[2016-09-24] MEDS: ACCUCHECK AT 2AM (Patients on SS coverage) XX SCH (02:00)
[2016-09-24] MEDS: metroNIDAZOLE 500 MG/NS (PMX) 100 ML IVPB SCH ×3 (05:50→22:37)
[2016-09-24] MEDS: CEFAZOLIN 1 GM/50 ML (PMX) 50 ML IVPB SCH ×3 (05:50→22:36)
[2016-09-24] MEDS: metroNIDAZOLE 500 MG TAB PO SCH ×3 (05:50→22:37)
[2016-09-24] MEDS: PANTOPRAZOLE (EC) 40 MG TAB PO SCH ×2 (05:51→18:09)
[2016-09-24 05:55] LABS: ADD SCAN DIFF NO
[2016-09-24 06:05] LABS: ABNORMAL IP MESSAGE 1; BASOPHIL # 0.1 10^3/ul (0.0-0.1); BASOPHILS % 0.5 % (0.0-2.0); HEMOGLOBIN 8.9 g/dl (14.0-18.0); LYMPHOCYTES # 0.9 10^3/ul (0.8-2.9); MEAN CORPUSCULAR HEMOGLOBIN 22.8 pg (29.0-33.0); MEAN CORPUSCULAR HGB CONC 29.7 g/dl (32.0-37.0); MEAN CORPUSCULAR VOLUME 76.9 fl (82.0-101.0); MEAN PLATELET VOLUME 10.8 fl (7.4-10.4); MONOCYTE # 0.6 10^3/ul (0.3-0.9); MONOCYTES % 4.9 % (0.0-11.0); NEUTROPHIL # 11.2 10^3/ul (1.6-7.5); NEUTROPHILS % 87.1 % (39.0-77.0); PLATELET COUNT 238 10^3/UL (140-415); RED CELL DISTRIBUTION WIDTH 29.3 % (11.5-14.5); WHITE BLOOD COUNT 12.9 10^3/ul (4.8-10.8)
[2016-09-24 06:22] LABS: POTASSIUM 3.4 mmol/L (3.5-5.1)
[2016-09-24 06:24] LABS: CREATININE 0.8 mg/dl (0.61-1.24)
[2016-09-24 06:25] LABS: CALCIUM 8.4 mg/dl (8.4-10.2)
--- NOTE | 2016-09-24 06:51 | PN ---
DATE: 09/23/2016 HISTORY OF PRESENT ILLNESS: Mr. Amezcua is a 66-year-old Salvadorean-speaking gentleman with history of C VA in the past. He came with bleeding and was found to have colon cancer by colonoscopy. The patie nt had a resection of the colon cancer yesterday. He is recuperating from surgery. He is on water only. PAST MEDICAL HISTORY: Please see the H and P. The patient has history of CVA, diabetes, and also m icrocytic anemia. He also has history of Clostridium difficile colitis. PHYSICAL EXAMINATION: GENERAL: Shows a slightly obese male who is alert, oriented. VITAL SIGNS: He is afebrile. ENT: Normal. HEART: Normal. LUNGS: Normal. ABDOMEN: The patient has a surgical dressing in the lower abdomen from the surgery. His bowel soun ds are decreased. EXTERNAL GENITALIA: Normal. EXTREMITIES: He has 1+ edema of the upper and lower extremities. LYMPH NODES: No peripheral lymphadenopathy. LABORATORY DATA: His CBC is stable with hemoglobin of 9.7, MCV 76, WBC 12,000, and platelets 264,00 0. His CMP is unremarkable with creatinine 0.78 and normal LFTs. IMPRESSION: 1. Carcinoma of the colon, status post surgery on 09/22/2016, pathology report pending. 2. Microcytic anemia. 3. History of cerebrovascular accident and diabetes in the past. PLAN AND DISCUSSION: This patient is doing well after surgery. His CBC is stable. He is on water only p.o. We should consider physical therapy. We probably should start him on lower dose Lovenox. He is already on baby aspirin. Dictated By: GISSEL BEGUM/ABDOULAYE Conf#: [id number] DID#: [id number]
[2016-09-24] MEDS: morphine 2 MG INJ IV PRN ×2 (07:32→20:12)
[2016-09-24] MEDS: INSULIN ASPART [NOVOLOG] 3 ML PEN SC SCH ×7 (07:36→20:19)
[2016-09-24] MEDS: FOLIC ACID 1 MG TAB PO SCH (08:26)
[2016-09-24] MEDS: LOSARTAN 50 MG TAB PO SCH ×2 (08:26→20:11)
[2016-09-24] MEDS: NIFEdipine (XL) 60 MG TAB PO SCH ×2 (08:27→20:11)
[2016-09-24] MEDS: ENOXAPARIN 100 MG/ML SYG SC SCH (08:32)
[2016-09-24] MEDS ORDERED: POTASSIUM CHLORIDE (SR) 20 MEQ TAB PO STA (09:31)
--- NOTE | 2016-09-24 09:39 | PN ---
Date/Time of Note Date/Time of Note DATE: 09/24/16 TIME: 09:33 Assessment/Plan VTE Prophylaxis VTE Prophylaxis Intervention: LMWH Lines/Catheters IV Catheter Type (from [facility] Saline Lock Urinary Cath still in place: Yes Assessment/Plan Chief Complaint/Hosp Course Assessment and plan 1. Acute encephalopathy. Improved . Will monitor 2. Acute/recent right GRAPHICS ARTIST territory infarcts. Antiplatelet therapy on hold due to worsening anemia. stable at present. on lovenox 3. Accelerated hypertension. Continue antihypertensives and adjust as needed. stable 4. Type 2 diabetes. Patient noted with A1c of 6.1. Continue insulin regimen. 5. Dyslipidemia. Continue on statin medication 6. Microcytic hypochromic anemia. Likely secondary to GI bleed and iron deficiency. Continue on iron supplement. stable 7. Circumferential sigmoid colon mass measuring 5 cm. patient repeat C. difficile culture was negative. s/p surgical intervention 09/22/2016. cont with analgesics 8. C. difficile colitis. Recent repeat culture was negative. Continue on antibiotics per ID recommendations DVT Provox: SCDs GERD prophylaxis: PPI Disposition and plan:s/p surgical intervention of colonic mass on 09/22/2016. Awaiting PT follow up. Will discuss with family snf vs. home with home health. Follow up with oncology recs. Johnc when cleared by consultants Discussed plan of care with Dr. Dixon Problems: Subjective 24 Hr Interval Summary Free Text/Dictation no s/s of distress. family at bedside Exam/Review of Systems Vital Signs Vitals Vital Signs Date Time Temp Pulse Resp B/P Pulse Ox O2 Delivery O2 Flow Rate FiO2 09/24/16 08:14 97.9 92 18 143/65 94 09/24/16 07:52 Nasal Cannula 2.0 09/22/16 13:05 30 Intake and Output 09/23/16 09/23/16 09/24/16 15:00 23:00 07:00 Intake Total 50 ml 900 ml 650 ml Output Total 720 ml 500 ml Balance 50 ml 180 ml 150 ml Exam General: alert, comfortable. no s/s of distress Eyes: remain equal round, can track Neck: supple, nontender Cardiac: regular rate seen on telemetry Pulmonary: No wheezing or rhonchi today. GI: soft, minimally tender on palpation Extremities: No edema bilateral lower extremities still Skin: surgical site abd cdi. MARQUISE drain on right abd. serosanguinos Neurologic: Alert and oriented 3 Results Result Diagram: 09/24/16 0505 09/24/16 0505 Results 24 hrs Laboratory Tests Test 09/23/16 12:02 09/23/16 16:54 09/23/16 20:13 09/24/16 05:05 Bedside Glucose 124 129 113 Anion Gap 17 H Basophils # 0.1 Basophils % 0.5 Blood Urea Nitrogen 10 Calcium Level 8.4 Carbon Dioxide Level 23 Chloride Level 102 Creatinine 0.80 Eosinophils # 0.0 Eosinophils % 0.0 Glucose Level 103 Hematocrit 30.0 L Hemoglobin 8.9 L Lymphocytes # 0.9 Lymphocytes % 7.0 L Mean Corpuscular Hemoglobin 22.8 L Mean Corpuscular Hemoglobin Concent 29.7 L Mean Corpuscular Volume 76.9 L Mean Platelet Volume 10.8 H Monocytes # 0.6 Monocytes % 4.9 Neutrophils # 11.2 H Neutrophils % 87.1 H Nucleated Red Blood Cells # 0.0 Nucleated Red Blood Cells % 0.0 Platelet Count 238 Potassium Level 3.4 L Red Blood Count 3.90 L Red Cell Distribution Width 29.3 H Sodium Level 139 White Blood Count 12.9 H Test 09/24/16 07:35 Bedside Glucose 136 Medications Medications Current Medications Lorazepam (Ativan) 0.5 mg Q6H PRN IV ANXIETY Last administered on 09/12/16 03: 17; Admin Dose 0.5 MG; Start 09/11/16 at 18:30 Ondansetron HCl (Zofran Inj) 4 mg Q6H PRN IV NAUSEA AND/OR VOMITING; Start 09/11 at 18:30 Aspirin (Aspirin) 81 mg DAILY PO Last administered on 09/12/16 08:32; Admin Dose 81 MG; Start 09/12/16 at 09:00; Status Future Hold Acetaminophen (Tylenol Tab) 650 mg Q6H PRN PO PAIN LEVEL 1-3 OR FEVER Last administered on 09/23/16 05:53; Admin Dose 650 MG; Start 09/11/16 at 18:30 Acetaminophen/ Hydrocodone Bitart (Alma (5/325)) 1 tab Q6H PRN PO PAIN LEVEL 4 -6 Last administered on 09/23/16 20:06; Admin Dose 1 TAB; Start 09/11/16 at 18: 30 Morphine Sulfate (morphine) 2 mg Q4H PRN IV PAIN LEVEL 7-10 Last administered on 09/24/16 07:32; Admin Dose 2 MG; Start 09/11/16 at 18:30 Magnesium Hydroxide (Milk Of Mag) 30 ml DAILY PRN PO CONSTIPATION; Start at 18:30 Bisacodyl (Dulcolax) 5 mg DAILY PRN PO CONSTIPATION; Start 09/11/16 at 18:30 Insulin Glargine (Lantus) 8 unit DAILY@20 SC Last administered on 09/23/16 20: 14; Admin Dose 8 UNIT; Start 09/11/16 at 20:00 Atorvastatin Calcium (Lipitor) 20 mg QHS PO Last administered on 09/23/16 20: 06; Admin Dose 20 MG; Start 09/11/16 at 21:00 Folic Acid (Folic Acid) 1 mg DAILY PO Last administered on 09/24/16 08:26; Admin Dose 1 MG; Start 09/12/16 at 09:00 Hydralazine HCl (Apresoline) 10 mg Q6H PRN IV SBP>180 Last administered on 09:10; Admin Dose 10 MG; Start 09/11/16 at 19:00 Diagnostic Test (Pha) (Accucheck) 1 ea 02 XX ; Start 09/12/16 at 02:00 Miscellaneous Information 1 ea NOTE XX ; Start 09/11/16 at 19:30 Glucose (Glutose) 15 gm Q15M PRN PO DECREASED GLUCOSE; Start 09/11/16 at 19:30 Glucose (Glutose) 22.5 gm Q15M PRN PO DECREASED GLUCOSE; Start 09/11/16 at 19:30 Dextrose (D50w Syringe) 25 ml Q15M PRN IV DECREASED GLUCOSE; Start 09/11/16 at 19:30 Dextrose (D50w Syringe) 50 ml Q15M PRN IV DECREASED GLUCOSE; Start 09/11/16 at 19:30 Glucagon (Glucagen) 1 mg Q15M PRN IM DECREASED GLUCOSE; Start 09/11/16 at 19:30 Glucose (Glutose) 15 gm Q15M PRN BUCCAL DECREASED GLUCOSE; Start 09/11/16 at 19: 30 Metronidazole (Flagyl) 500 mg Q8 PO Last administered on 09/24/16 05:50; Admin Dose 500 MG; Start 09/13/16 at 14:00 Losartan Potassium (Cozaar) 50 mg BID PO Last administered on 09/24/16 08:26; Admin Dose 50 MG; Start 09/14/16 at 21:00 Nifedipine (Procardia Xl) 60 mg BID PO Last administered on 09/24/16 08:27; Admin Dose 60 MG; Start 09/14/16 at 21:00 Hydralazine HCl (Apresoline) 25 mg Q8 PO Last administered on 09/24/16 05:52; Admin Dose 25 MG; Start 09/15/16 at 14:00 Pantoprazole (Protonix Tab) 40 mg BID@06,18 PO Last administered on 09/24/16 05:51; Admin Dose 40 MG; Start 09/18/16 at 18:00 Oxycodone/ Acetaminophen (Percocet (5/ 325)) 1 tab Q4H PRN PO MILD PAIN (1-3); Start 09/22/16 at 13:00 Oxycodone/ Acetaminophen (Percocet (5/ 325)) 2 tab Q4H PRN PO MODERATE PAIN (4- 6); Start 09/22/16 at 13:00 Ondansetron HCl (Zofran Inj) 4 mg Q6H PRN IV NAUSEA; Start 09/22/16 at 13:00 Metoclopramide HCl (Reglan) 10 mg Q6H IV Last administered on 09/24/16 07:32; Admin Dose 10 MG; Start 09/22/16 at 13:00 Enoxaparin Sodium 85 mg 85 mg Q24H SC Last administered on 09/24/16 08:32; Admin Dose 85 MG; Start 09/23/16 at 09:00 Cefazolin Sodium 50 ml @ 100 mls/hr Q8 IVPB Last administered on 09/24/16 05: 50; Admin Dose 100 MLS/HR; Start 09/22/16 at 14:00 Metronidazole (Flagyl 500 Mg (Pmx)) 100 ml @ 0 mls/hr Q8 IVPB Last administered on 09/24/16 05:50; Admin Dose 100 MLS/HR; Start 09/22/16 at 14:00 CARLOS SOUZA Sep 24, 2016 09:38
[2016-09-24] MEDS ORDERED: ZOLPIDEM 5 MG TAB PO PRN (10:30)
--- NOTE | 2016-09-24 17:31 | PN ---
DATE: SUBJECTIVE: Postoperative day #2. The patient has been afebrile throughout. OBJECTIVE: His abdominal examination is benign. MARQUISE drainage is serosanguineous. The patient has n ot had return of bowel function yet. Also, he has not been out of bed. ASSESSMENT: Physical therapy order has been entered yesterday and we will encourage ambulation. Al so, the patient can have the Duque catheter removed. Dictated By: MECCA DE LEON/ABDOULAYE Conf#: [id number] DID#: [id number]
--- NOTE | 2016-09-24 19:11 | PN ---
DATE: 09/24/2016 HISTORY OF PRESENT ILLNESS: Mr. Amezcua is a 66-year-old gentleman with a history of CVA in the past who was admitted because of GI bleeding and was found to have colon cancer on colonoscopy. Two days ago, he had resection of the colon cancer and the pathology report is pending. He is recu perating from surgery. He is on clear liquids. PAST MEDICAL HISTORY: He has history of diabetes and also CVA in the past. He also has history of microcytic anemia, probably from GI bleeding. He also has history of Clostridium difficile colitis. PHYSICAL EXAMINATION: GENERAL: Shows a moderately obese gentleman in mild distress because of the abdominal wound. VITAL SIGNS: Unremarkable. HEENT: Normocephalic. NECK: Supple without any abnormal masses or pulsations. CHEST: Symmetrical. LUNGS: Clear. HEART: Sounds normal. Regular sinus rhythm. ABDOMEN: The patient has midline surgical scar, which is covered with a surgical dressing. He has tenderness of the abdomen. EXTERNAL GENITALIA: Normal. EXTREMITIES: No edema. LYMPH NODES: No peripheral lymphadenopathy. CENTRAL NERVOUS SYSTEM: No definite focal deficits. LABORATORY DATA: His CBC is stable except hemoglobin down to 8.9 from 9.7 yesterday. His BMP is un remarkable. IMPRESSION: 1. Carcinoma of the colon, status post resection on 09/22/2016. Pathology report pending. 2. Microcytic anemia, most likely secondary to gastrointestinal bleeding. 3. History of diabetes. 4. Cerebrovascular accident in the past. PLAN: The patient is doing fair. He is on clear liquids now. He is slightly obese. I will start him on physical therapy. He is on low dose Lovenox and baby aspirin, which we will continue. We ma y have to look for post-surgical or GI bleeding. Thanks, again, very much Dictated By: GISSEL EMMANUEL MD PC/NTS Conf#: [id number] DID#: [id number] CC: JOAN GARCIA MD;*EndCC*
[2016-09-24] MEDS: ATORVASTATIN 20 MG TAB PO SCH (20:11)
[2016-09-24] MEDS: INSULIN GLARGINE [LANtus] 3 ML PEN SC SCH (20:19)
[2016-09-25] VITALS (9 sets, daily range): BP systolic 124–139; BP diastolic 58–68; PULSE 83–92; RESP 18–24
[2016-09-25] MEDS: METOCLOPRAMIDE 10 MG INJ IV SCH ×4 (00:02→17:48)
[2016-09-25] MEDS: ACCUCHECK AT 2AM (Patients on SS coverage) XX SCH (01:41)
[2016-09-25] MEDS: morphine 2 MG INJ IV PRN (04:24)
[2016-09-25] MEDS: CEFAZOLIN 1 GM/50 ML (PMX) 50 ML IVPB SCH (06:09)
[2016-09-25] MEDS: metroNIDAZOLE 500 MG/NS (PMX) 100 ML IVPB SCH (06:09)
[2016-09-25] MEDS: PANTOPRAZOLE (EC) 40 MG TAB PO SCH ×2 (06:10→17:48)
[2016-09-25] MEDS: metroNIDAZOLE 500 MG TAB PO SCH ×3 (06:10→22:21)
[2016-09-25 07:25] LABS: ADD SCAN DIFF NO
[2016-09-25 07:30] LABS: ABNORMAL IP MESSAGE 1; BASOPHIL # 0.1 10^3/ul (0.0-0.1); BASOPHILS % 0.5 % (0.0-2.0); EOSINOPHILS % 0.1 % (0.0-7.0); HEMATOCRIT 30.7 % (42.0-52.0); HEMOGLOBIN 9.1 g/dl (14.0-18.0); LYMPHOCYTES # 1.2 10^3/ul (0.8-2.9); LYMPHOCYTES % 9.2 % (15.0-51.0); MEAN CORPUSCULAR HEMOGLOBIN 22.6 pg (29.0-33.0); MEAN CORPUSCULAR HGB CONC 29.6 g/dl (32.0-37.0); MEAN CORPUSCULAR VOLUME 76.4 fl (82.0-101.0); MEAN PLATELET VOLUME 10.5 fl (7.4-10.4); MONOCYTE # 0.6 10^3/ul (0.3-0.9); MONOCYTES % 4.3 % (0.0-11.0); NEUTROPHIL # 11.2 10^3/ul (1.6-7.5); NEUTROPHILS % 85.5 % (39.0-77.0); PLATELET COUNT 267 10^3/UL (140-415); RED BLOOD COUNT 4.02 10^6/ul (4.70-6.10); RED CELL DISTRIBUTION WIDTH 29.6 % (11.5-14.5); WHITE BLOOD COUNT 13.1 10^3/ul (4.8-10.8)
[2016-09-25 07:44] LABS: POTASSIUM 3.4 mmol/L (3.5-5.1)
[2016-09-25 07:46] LABS: CREATININE 0.89 mg/dl (0.61-1.24)
[2016-09-25 07:47] LABS: CALCIUM 8.4 mg/dl (8.4-10.2)
[2016-09-25] MEDS: INSULIN ASPART [NOVOLOG] 3 ML PEN SC SCH ×7 (07:55→20:37)
--- NOTE | 2016-09-25 08:15 | OPR ---
DATE OF OPERATION: 09/22/2016 PREOPERATIVE DIAGNOSIS: Carcinoma of sigmoid. OPERATION PERFORMED: 1. Low anterior resection. 2. Rigid sigmoidoscopy. POSTOPERATIVE DIAGNOSIS: Carcinoma of sigmoid, with no intraperitoneal or liver metastases. SURGEON: Mecca Dubon MD ANESTHESIA: General. ANESTHESIOLOGIST: Dr. Hanna OPERATIVE REPORT: After satisfactory general anesthesia was achieved, the patient was placed in All en stirrups, a Duque catheter was placed and the abdomen and perineum were prepped and draped. The abdomen was entered through a lower vertical midline incision. Abdominal exploration showed that th e colonic neoplasm was not in the sigmoid loop, but was just above the peritoneal reflection in the pelvis. Peritoneal attachments to the rectosigmoid were divided with electrocautery. The left uret er was identified and preserved. The dissection continued laterally on both sides. The middle hemo rrhoidal vessels were divided with impact LigaSure. A hand was placed along the hollow of the sacru m, mobilizing the rectum. Finally, a contour stapler was able to be passed several centimeters dist al to the partially obstructing neoplasm. It was closed and fired. The mesentery to the rectosigmo id was divided with impact LigaSure. The colon 10 cm proximal to the lesion was divided over a purs estring device on the patient's side. The specimen was submitted and oriented for the pathologist. Staple line indicating distal margin. Next a 33-mm ILS stapler was used. The anvil was inserted i nto the proximal colon. The pursestring was tied snugly around the shaft. Prior to doing this, Dop pler evaluated excellent pulsatile arterial flow at the proximal segment. Next, the 33-mm stapler was inserted per rectum, an open piercing through the center of the staple l ine. The anvil was attached to the ILS stapler, which was then closed, fired and removed. Both spe cimen donuts were intact 360 degrees. The rectal donut was submitted as additional rectum. The eliza stomosis was tested with air insufflation with rigid sigmoidoscopy. The anastomosis was widely patent and airtight. Through a separate stab in the right lower quadrant , a #19 round Matt drain was placed, draining the pelvis. The posterior rectus sheath and peritone um were closed with running #1 Vicryl. Anterior rectus sheath and fascia were closed with running # 2 Vicryl. The subcutaneous tissues were irrigated and the skin closed with diane. The drain was secured with 2-0 nylon. OPERATIVE BLOOD LOSS: Approximately 100 mL. Sponge, needle and instrument counts were reported as correct x2. The patient tolerated the procedure well and without incident or complication. Dictated By: MECCA DE LEON/ABDOULAYE Conf#: [id number] DID#: [id number]
[2016-09-25] MEDS: HYDROCODONE/APAP (5/325) TAB PO PRN (08:46)
[2016-09-25] MEDS: NIFEdipine (XL) 60 MG TAB PO SCH ×2 (09:51→20:45)
[2016-09-25] MEDS: FOLIC ACID 1 MG TAB PO SCH (09:51)
[2016-09-25] MEDS: LOSARTAN 50 MG TAB PO SCH ×2 (09:51→20:46)
--- NOTE | 2016-09-25 11:01 | PN ---
Date/Time of Note Date/Time of Note DATE: 09/25/16 TIME: 10:57 Assessment/Plan VTE Prophylaxis VTE Prophylaxis Intervention: LMWH Lines/Catheters IV Catheter Type (from [facility]): Saline Lock Urinary Cath still in place: No Assessment/Plan Chief Complaint/Hosp Course 1. Acute encephalopathy. Largely resolved. Most probably secondary to #2. Continue anticoagulation. Currently on Lovenox. 2. Acute/recent right STENO TYPIST territory infarcts. Continue Lovenox. Continue statins. Continue PT. 3. Accelerated hypertension. The patient will be continued on routine antihypertensives. The patient will be continued on p.r.n. antihypertensives for any systolic blood pressure readings greater than 180 mmHg. 4. Type 2 diabetes mellitus. Hemoglobin A1c 6.1. The patient will be continued on sliding scale insulin along with Lantus insulin and premeal insulin. 5. Dyslipidemia. Fasting lipid panel suboptimal. Continue statins. 6. Microcytic, hypochromic anemia. Secondary to GI bleed and iron deficiency. Continue PPI. S/P blood transfusion. Gastroenterology following. 7. Circumferential sigmoid colon mass measuring 5 cm. 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 Status post resection of the mass on 09/22/2016. Continue postoperative care. Encourage incentive spirometry. Encourage frequent ambulation. Oncology on the case. 8. Iron deficiency anemia. Continue iron supplements. 9. C. diff colitis. Enteric precautions. On oral Flagyl. Repeat stool sample negative for any C. difficile colitis. 10. Fluids, electrolytes, and nutrition. Carbohydrate controlled, low- cholesterol diet [soft]. 11. DVT prophylaxis. Subcutaneous Lovenox. 12. Gastrointestinal prophylaxis. Proton pump inhibitors. 13. Plan. Continue pain control. Continue incentive spirometry. Encourage ambulation Case discussed with . Plan of care was explained to the patient's family who was at the bedside. Problems: Subjective 24 Hr Interval Summary Free Text/Dictation Patient somnolent. Pain well controlled. Exam/Review of Systems Vital Signs Vitals Vital Signs Date Time Temp Pulse Resp B/P Pulse Ox O2 Delivery O2 Flow Rate FiO2 09/25/16 08:00 92 09/25/16 07:52 98.5 24 125/58 95 09/25/16 03:32 Nasal Cannula 2.0 09/22/16 13:05 30 Intake and Output 09/24/16 09/24/16 09/25/16 15:00 23:00 07:00 Intake Total 20 ml 750 ml 500 ml Output Total 700 ml 500 ml Balance 20 ml 50 ml 0 ml Exam GENERAL: This is a slightly obese male sitting in bed in no apparent distress. HEENT: Head normocephalic and atraumatic. Eyes: Anicteric sclerae. Conjunctivae clear. ENT: Nasal septum is midline. Oral mucosa is dry. NECK: Supple. No JVD noticed. RESPIRATORY: Bilaterally diminished breath sounds. No use of adventitious muscles of respiration. CARDIAC: Regular rate and rhythm with a grade II/ systolic ejection murmur heard at the left sternal border. GASTROINTESTINAL: Abdomen soft and nondistended. Bowel sounds positive in all 4 quadrants. Midline incision with dressings over it. Right lower quadrant MARQUISE drain in place. Draining serosanguineous secretions GENITOURINARY: Deferred. EXTREMITIES: No cyanosis, no clubbing. Bilateral 2+ ankle edema. Peripheral pulses palpable. NEUROLOGIC: The patient is awake and alert. Oriented x2-3. Not sure about the date. Moves all 4 extremities. Equal strength in all 4 extremities. Tongue midline. Results Result Diagram: 09/25/16 0700 09/25/16 0700 Results 24 hrs Laboratory Tests Test 09/24/16 12:00 09/24/16 16:57 09/24/16 20:17 09/25/16 07:00 Bedside Glucose 132 125 104 Anion Gap 18 H Basophils # 0.1 Basophils % 0.5 Blood Urea Nitrogen 14 Calcium Level 8.4 Carbon Dioxide Level 20 L Chloride Level 102 Creatinine 0.89 Eosinophils # 0.0 Eosinophils % 0.1 Glucose Level 98 Hematocrit 30.7 L Hemoglobin 9.1 L Lymphocytes # 1.2 Lymphocytes % 9.2 L Mean Corpuscular Hemoglobin 22.6 L Mean Corpuscular Hemoglobin Concent 29.6 L Mean Corpuscular Volume 76.4 L Mean Platelet Volume 10.5 H Monocytes # 0.6 Monocytes % 4.3 Neutrophils # 11.2 H Neutrophils % 85.5 H Nucleated Red Blood Cells # 0.0 Nucleated Red Blood Cells % 0.0 Platelet Count 267 Potassium Level 3.4 L Red Blood Count 4.02 L Red Cell Distribution Width 29.6 H Sodium Level 137 White Blood Count 13.1 H Test 09/25/16 08:27 Bedside Glucose 111 Medications Medications Current Medications Lorazepam (Ativan) 0.5 mg Q6H PRN IV ANXIETY Last administered on 09/12/16 03: 17; Admin Dose 0.5 MG; Start 09/11/16 at 18:30 Ondansetron HCl (Zofran Inj) 4 mg Q6H PRN IV NAUSEA AND/OR VOMITING; Start 09/11 at 18:30 Aspirin (Aspirin) 81 mg DAILY PO Last administered on 09/12/16 08:32; Admin Dose 81 MG; Start 09/12/16 at 09:00; Status Future Hold Acetaminophen (Tylenol Tab) 650 mg Q6H PRN PO PAIN LEVEL 1-3 OR FEVER Last administered on 09/23/16 05:53; Admin Dose 650 MG; Start 09/11/16 at 18:30 Magnesium Hydroxide (Milk Of Mag) 30 ml DAILY PRN PO CONSTIPATION; Start at 18:30 Bisacodyl (Dulcolax) 5 mg DAILY PRN PO CONSTIPATION Last administered on 00:16; Admin Dose 5 MG; Start 09/11/16 at 18:30 Insulin Glargine (Lantus) 8 unit DAILY@20 SC Last administered on 09/24/16 20: 19; Admin Dose 8 UNIT; Start 09/11/16 at 20:00 Atorvastatin Calcium (Lipitor) 20 mg QHS PO Last administered on 09/24/16 20: 11; Admin Dose 20 MG; Start 09/11/16 at 21:00 Folic Acid (Folic Acid) 1 mg DAILY PO Last administered on 09/24/16 08:26; Admin Dose 1 MG; Start 09/12/16 at 09:00 Hydralazine HCl (Apresoline) 10 mg Q6H PRN IV SBP>180 Last administered on 09:10; Admin Dose 10 MG; Start 09/11/16 at 19:00 Diagnostic Test (Pha) (Accucheck) 1 ea 02 XX ; Start 09/12/16 at 02:00 Miscellaneous Information 1 ea NOTE XX ; Start 09/11/16 at 19:30 Glucose (Glutose) 15 gm Q15M PRN PO DECREASED GLUCOSE; Start 09/11/16 at 19:30 Glucose (Glutose) 22.5 gm Q15M PRN PO DECREASED GLUCOSE; Start 09/11/16 at 19:30 Dextrose (D50w Syringe) 25 ml Q15M PRN IV DECREASED GLUCOSE; Start 09/11/16 at 19:30 Dextrose (D50w Syringe) 50 ml Q15M PRN IV DECREASED GLUCOSE; Start 09/11/16 at 19:30 Glucagon (Glucagen) 1 mg Q15M PRN IM DECREASED GLUCOSE; Start 09/11/16 at 19:30 Glucose (Glutose) 15 gm Q15M PRN BUCCAL DECREASED GLUCOSE; Start 09/11/16 at 19: 30 Metronidazole (Flagyl) 500 mg Q8 PO Last administered on 09/25/16 06:10; Admin Dose 500 MG; Start 09/13/16 at 14:00 Losartan Potassium (Cozaar) 50 mg BID PO Last administered on 09/24/16 20:11; Admin Dose 50 MG; Start 09/14/16 at 21:00 Nifedipine (Procardia Xl) 60 mg BID PO Last administered on 09/24/16 20:11; Admin Dose 60 MG; Start 09/14/16 at 21:00 Hydralazine HCl (Apresoline) 25 mg Q8 PO Last administered on 09/25/16 06:09; Admin Dose 25 MG; Start 09/15/16 at 14:00 Pantoprazole (Protonix Tab) 40 mg BID@06,18 PO Last administered on 09/25/16 06:10; Admin Dose 40 MG; Start 09/18/16 at 18:00 Ondansetron HCl (Zofran Inj) 4 mg Q6H PRN IV NAUSEA; Start 09/22/16 at 13:00 Metoclopramide HCl (Reglan) 10 mg Q6H IV Last administered on 09/25/16 08:45; Admin Dose 10 MG; Start 09/22/16 at 13:00 Enoxaparin Sodium 85 mg 85 mg Q24H SC Last administered on 09/24/16 08:32; Admin Dose 85 MG; Start 09/23/16 at 09:00 Cefazolin Sodium 50 ml @ 100 mls/hr Q8 IVPB Last administered on 09/25/16 06: 09; Admin Dose 100 MLS/HR; Start 09/22/16 at 14:00 Metronidazole (Flagyl 500 Mg (Pmx)) 100 ml @ 0 mls/hr Q8 IVPB Last administered on 09/25/16 06:09; Admin Dose 100 MLS/HR; Start 09/22/16 at 14:00 Zolpidem Tartrate (Ambien) 5 mg HS PRN PO INSOMNIA Last administered on 20:11; Admin Dose 5 MG; Start 09/24/16 at 10:30 SUSAN BRAUN NP Sep 25, 2016 11:01
[2016-09-25] MEDS: ENOXAPARIN 100 MG/ML SYG SC SCH (11:16)
[2016-09-25] MEDS: SOD FERRIC GLUC COMPLX 125 MG in SOD CHLORIDE 0.9% 100 ML IVPB SCH (12:25)
--- NOTE | 2016-09-25 13:52 | PN ---
DATE: 09/25/2016 SUBJECTIVE: Postoperative day #3. The patient has been afebrile now for the last 24 hours, he cont inues to be very lethargic due to pain medications. His abdominal incision is clean. His MARQUISE drainag e is serosanguineous. LABORATORY DATA: Hematocrit is 30 with a white count of 13,100. BUN, glucose, electrolytes are unr emarkable. IMPRESSION: Patient appears to be over medicated for pain medications. PLAN: Stop all p.o. and IV narcotics. Physical therapy was not able to work with him because of hi s almost obtunded status. Also, we will discontinue the Duque today. Dictated By: MECCA DE LEON/ABDOULAYE Conf#: [id number] DID#: [id number]
--- NOTE | 2016-09-25 14:41 | CONS ---
Date/Time of Note Date/Time of Note DATE: 09/25/16 TIME: 14:40 Assessment/Plan Assessment/Plan Chief Complaint/Hosp Course SUBJECTIVE: No events overnight, lethargic,nad, no fevers. ANTIMICROBIALS: Flagyl, Ancef. PHYSICAL EXAMINATION: GENERAL: This is well-developed, elderly man who is in no distress. HEENT: Head atraumatic, normocephalic. Sclerae anicteric. Buccal mucosa dry. NECK: Supple, trachea midline. CHEST: Rise symmetrical. Breath sounds diminished to bases. HEART: S1, S2. ABDOMEN: Soft, bowel tones present. EXTREMITIES: Without cyanosis. ASSESSMENT: 1. Clostridium difficile colitis with resolving diarrhea. 2. Colon carcinoma; no signs of distant metastases per CT, s/p resection==> 3. Anemia. 4. History of cerebrovascular accident. 5. Diabetes. PLAN: Clinically unchanged, will dc Ancef, continue Flagyl, f/u surgical rec-s , PT/ambulation. DW staff Problems: Consultation Date/Type/Reason Admit Date/Time Sep 11, 2016 at 17:05 Initial Consult Date 09/16/16 Type of Consultation: id Referring Provider: SUSAN BRAUN TICKET COLLECTOR Exam/Review of Systems Vital Signs Vitals Vital Signs Date Time Temp Pulse Resp B/P Pulse Ox O2 Delivery O2 Flow Rate FiO2 09/25/16 12:00 83 09/25/16 11:00 98.4 18 124/60 95 09/25/16 08:00 Nasal Cannula 2.0 09/22/16 13:05 30 Intake and Output 09/24/16 09/24/16 09/25/16 15:00 23:00 07:00 Intake Total 20 ml 750 ml 500 ml Output Total 700 ml 500 ml Balance 20 ml 50 ml 0 ml Results Result Diagram: 09/25/16 0700 09/25/16 0700 Results 24 hrs Laboratory Tests Test 09/24/16 16:57 09/24/16 20:17 09/25/16 07:00 09/25/16 08:27 Bedside Glucose 125 104 111 Anion Gap 18 H Basophils # 0.1 Basophils % 0.5 Blood Urea Nitrogen 14 Calcium Level 8.4 Carbon Dioxide Level 20 L Chloride Level 102 Creatinine 0.89 Eosinophils # 0.0 Eosinophils % 0.1 Glucose Level 98 Hematocrit 30.7 L Hemoglobin 9.1 L Lymphocytes # 1.2 Lymphocytes % 9.2 L Mean Corpuscular Hemoglobin 22.6 L Mean Corpuscular Hemoglobin Concent 29.6 L Mean Corpuscular Volume 76.4 L Mean Platelet Volume 10.5 H Monocytes # 0.6 Monocytes % 4.3 Neutrophils # 11.2 H Neutrophils % 85.5 H Nucleated Red Blood Cells # 0.0 Nucleated Red Blood Cells % 0.0 Platelet Count 267 Potassium Level 3.4 L Red Blood Count 4.02 L Red Cell Distribution Width 29.6 H Sodium Level 137 White Blood Count 13.1 H Test 09/25/16 12:23 Bedside Glucose 145 Medications Medications Current Medications Lorazepam (Ativan) 0.5 mg Q6H PRN IV ANXIETY Last administered on 09/12/16 03: 17; Admin Dose 0.5 MG; Start 09/11/16 at 18:30 Aspirin (Aspirin) 81 mg DAILY PO Last administered on 09/12/16 08:32; Admin Dose 81 MG; Start 09/12/16 at 09:00; Status Future Hold Acetaminophen (Tylenol Tab) 650 mg Q6H PRN PO PAIN LEVEL 1-3 OR FEVER Last administered on 09/23/16 05:53; Admin Dose 650 MG; Start 09/11/16 at 18:30 Magnesium Hydroxide (Milk Of Mag) 30 ml DAILY PRN PO CONSTIPATION; Start at 18:30 Bisacodyl (Dulcolax) 5 mg DAILY PRN PO CONSTIPATION Last administered on 00:16; Admin Dose 5 MG; Start 09/11/16 at 18:30 Insulin Glargine (Lantus) 8 unit DAILY@20 SC Last administered on 09/24/16 20: 19; Admin Dose 8 UNIT; Start 09/11/16 at 20:00 Atorvastatin Calcium (Lipitor) 20 mg QHS PO Last administered on 09/24/16 20: 11; Admin Dose 20 MG; Start 09/11/16 at 21:00 Folic Acid (Folic Acid) 1 mg DAILY PO Last administered on 09/25/16 09:51; Admin Dose 1 MG; Start 09/12/16 at 09:00 Hydralazine HCl (Apresoline) 10 mg Q6H PRN IV SBP>180 Last administered on 09:10; Admin Dose 10 MG; Start 09/11/16 at 19:00 Diagnostic Test (Pha) (Accucheck) 1 ea 02 XX ; Start 09/12/16 at 02:00 Miscellaneous Information 1 ea NOTE XX ; Start 09/11/16 at 19:30 Glucose (Glutose) 15 gm Q15M PRN PO DECREASED GLUCOSE; Start 09/11/16 at 19:30 Glucose (Glutose) 22.5 gm Q15M PRN PO DECREASED GLUCOSE; Start 09/11/16 at 19:30 Dextrose (D50w Syringe) 25 ml Q15M PRN IV DECREASED GLUCOSE; Start 09/11/16 at 19:30 Dextrose (D50w Syringe) 50 ml Q15M PRN IV DECREASED GLUCOSE; Start 09/11/16 at 19:30 Glucagon (Glucagen) 1 mg Q15M PRN IM DECREASED GLUCOSE; Start 09/11/16 at 19:30 Glucose (Glutose) 15 gm Q15M PRN BUCCAL DECREASED GLUCOSE; Start 09/11/16 at 19: 30 Metronidazole (Flagyl) 500 mg Q8 PO Last administered on 09/25/16 14:14; Admin Dose 500 MG; Start 09/13/16 at 14:00 Losartan Potassium (Cozaar) 50 mg BID PO Last administered on 09/25/16 09:51; Admin Dose 50 MG; Start 09/14/16 at 21:00 Nifedipine (Procardia Xl) 60 mg BID PO Last administered on 09/25/16 09:51; Admin Dose 60 MG; Start 09/14/16 at 21:00 Hydralazine HCl (Apresoline) 25 mg Q8 PO Last administered on 09/25/16 14:14; Admin Dose 25 MG; Start 09/15/16 at 14:00 Pantoprazole (Protonix Tab) 40 mg BID@,18 PO Last administered on 09/25/16 06:10; Admin Dose 40 MG; Start 09/18/16 at 18:00 Ondansetron HCl (Zofran Inj) 4 mg Q6H PRN IV NAUSEA; Start 09/22/16 at 13:00 Enoxaparin Sodium (Lovenox) 85 mg Q24H SC Last administered on 09/25/16 11:16 ; Admin Dose 85 MG; Start 09/23/16 at 09:00 Zolpidem Tartrate 5 mg 5 mg HS PRN PO INSOMNIA Last administered on 09/24/16 20:11; Admin Dose 5 MG; Start 09/24/16 at 10:30 Ferric Sodium Gluconate Complex/ Sodium Chloride (Ferrlecit/NS) 110 ml @ 100 mls/hr Q24H IVPB Last administered on 09/25/16 12:25; Admin Dose 100 MLS/HR; Start 09/25/16 at 12:00; Stop 09/27/16 at 13:05 Metoclopramide HCl (Reglan) 10 mg Q6 IV ; Start 09/25/16 at 18:00 DI HADLEY NP Sep 25, 2016 14:41
--- NOTE | 2016-09-25 15:33 | CONS ---
Date/Time of Note Date/Time of Note DATE: 09/25/16 TIME: 15:29 Assessment/Plan Assessment/Plan Chief Complaint/Hosp Course 66 up with adenocarcinoma of the sigmoid colon. #Colon cancer- CT with no signs of distant mets and biopsy confirming adenocarcinoma. Preop CEA is 1.4. now s/p surgical resection -will f/u path to see if patient needs adjuvant chemotherapy -even if pt has T4 disease or Stage III disease and needs adjuvant chemotherapy , the son has clearly states that the patient will not accept this. He instead would like to seek alternative methods of therapy including trying grade seed extract and coconut oil. I have explained to the family that I am not an expert in alternative therapies but that it is the patient's decision to refuse chemotherapy and pursue alternative therapies if that is in fact what he desires. -agree with surgical resection and the further recommendations after surgical path. surgery is scheduled for today # Anemia-secondary to iron deficiency. Ferritin at 5, will need iron supplementation and PRBC for hgb less than 7-8. Hg now stable and greater than 10 reason for GI blood loss is secondary to the sigmoid mass. 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 -ASA on hold for worsening anemia -management per primary team # Cdiff -now negative. diarrhea has improved Approximately 40 min were spent at patient's bedside and in coordination of his care Problems: Consultation Date/Type/Reason Admit Date/Time Sep 11, 2016 at 17:05 Initial Consult Date 09/16/16 Type of Consultation: oncology Reason for Consultation colon ca Referring Provider: SUSAN BRAUN PICKLE SORTER 24 HR Interval Summary Free Text/Dictation pt is recovering well from the surgery. still with post op abdominal pain. spoke at length with son who has clearly stated pt does not want chemotherapy even if it is necessary Exam/Review of Systems Vital Signs Vitals Vital Signs Date Time Temp Pulse Resp B/P Pulse Ox O2 Delivery O2 Flow Rate FiO2 09/25/16 12:00 83 09/25/16 11:00 98.4 18 124/60 95 09/25/16 08:00 Nasal Cannula 2.0 09/22/16 13:05 30 Intake and Output 09/24/16 09/24/16 09/25/16 15:00 23:00 07:00 Intake Total 20 ml 750 ml 500 ml Output Total 700 ml 500 ml Balance 20 ml 50 ml 0 ml Exam Constitutional: alert, distress, frail, oriented Psych: anxiety, depression Head: normocephalic Eyes: nl conjunctiva ENMT: nl external ears & nose Neck: non-tender, supple Respiratory: clear to auscultation Cardiovascular: regular rate and rhythm Gastrointestinal: surgical scars Musculoskeletal: nl extremities to inspection, nl gait and stance Results Result Diagram: 09/25/16 0700 09/25/16 0700 Results 24 hrs Laboratory Tests Test 09/24/16 16:57 09/24/16 20:17 09/25/16 07:00 09/25/16 08:27 Bedside Glucose 125 104 111 Anion Gap 18 H Basophils # 0.1 Basophils % 0.5 Blood Urea Nitrogen 14 Calcium Level 8.4 Carbon Dioxide Level 20 L Chloride Level 102 Creatinine 0.89 Eosinophils # 0.0 Eosinophils % 0.1 Glucose Level 98 Hematocrit 30.7 L Hemoglobin 9.1 L Lymphocytes # 1.2 Lymphocytes % 9.2 L Mean Corpuscular Hemoglobin 22.6 L Mean Corpuscular Hemoglobin Concent 29.6 L Mean Corpuscular Volume 76.4 L Mean Platelet Volume 10.5 H Monocytes # 0.6 Monocytes % 4.3 Neutrophils # 11.2 H Neutrophils % 85.5 H Nucleated Red Blood Cells # 0.0 Nucleated Red Blood Cells % 0.0 Platelet Count 267 Potassium Level 3.4 L Red Blood Count 4.02 L Red Cell Distribution Width 29.6 H Sodium Level 137 White Blood Count 13.1 H Test 09/25/16 12:23 Bedside Glucose 145 Medications Medications Current Medications Lorazepam (Ativan) 0.5 mg Q6H PRN IV ANXIETY Last administered on 09/12/16 03: 17; Admin Dose 0.5 MG; Start 09/11/16 at 18:30 Aspirin (Aspirin) 81 mg DAILY PO Last administered on 09/12/16 08:32; Admin Dose 81 MG; Start 09/12/16 at 09:00; Status Future Hold Acetaminophen (Tylenol Tab) 650 mg Q6H PRN PO PAIN LEVEL 1-3 OR FEVER Last administered on 09/23/16 05:53; Admin Dose 650 MG; Start 09/11/16 at 18:30 Magnesium Hydroxide (Milk Of Mag) 30 ml DAILY PRN PO CONSTIPATION; Start at 18:30 Bisacodyl (Dulcolax) 5 mg DAILY PRN PO CONSTIPATION Last administered on 00:16; Admin Dose 5 MG; Start 09/11/16 at 18:30 Insulin Glargine (Lantus) 8 unit DAILY@20 SC Last administered on 09/24/16 20: 19; Admin Dose 8 UNIT; Start 09/11/16 at 20:00 Atorvastatin Calcium (Lipitor) 20 mg QHS PO Last administered on 09/24/16 20: 11; Admin Dose 20 MG; Start 09/11/16 at 21:00 Folic Acid (Folic Acid) 1 mg DAILY PO Last administered on 09/25/16 09:51; Admin Dose 1 MG; Start 09/12/16 at 09:00 Hydralazine HCl (Apresoline) 10 mg Q6H PRN IV SBP>180 Last administered on 09:10; Admin Dose 10 MG; Start 09/11/16 at 19:00 Diagnostic Test (Pha) (Accucheck) 1 ea 02 XX ; Start 09/12/16 at 02:00 Miscellaneous Information 1 ea NOTE XX ; Start 09/11/16 at 19:30 Glucose (Glutose) 15 gm Q15M PRN PO DECREASED GLUCOSE; Start 09/11/16 at 19:30 Glucose (Glutose) 22.5 gm Q15M PRN PO DECREASED GLUCOSE; Start 09/11/16 at 19:30 Dextrose (D50w Syringe) 25 ml Q15M PRN IV DECREASED GLUCOSE; Start 09/11/16 at 19:30 Dextrose (D50w Syringe) 50 ml Q15M PRN IV DECREASED GLUCOSE; Start 09/11/16 at 19:30 Glucagon (Glucagen) 1 mg Q15M PRN IM DECREASED GLUCOSE; Start 09/11/16 at 19:30 Glucose (Glutose) 15 gm Q15M PRN BUCCAL DECREASED GLUCOSE; Start 09/11/16 at 19: 30 Losartan Potassium (Cozaar) 50 mg BID PO Last administered on 09/25/16 09:51; Admin Dose 50 MG; Start 09/14/16 at 21:00 Nifedipine (Procardia Xl) 60 mg BID PO Last administered on 09/25/16 09:51; Admin Dose 60 MG; Start 09/14/16 at 21:00 Hydralazine HCl (Apresoline) 25 mg Q8 PO Last administered on 09/25/16 14:14; Admin Dose 25 MG; Start 09/15/16 at 14:00 Pantoprazole (Protonix Tab) 40 mg BID@06,18 PO Last administered on 09/25/16 06:10; Admin Dose 40 MG; Start 09/18/16 at 18:00 Ondansetron HCl (Zofran Inj) 4 mg Q6H PRN IV NAUSEA; Start 09/22/16 at 13:00 Enoxaparin Sodium (Lovenox) 85 mg Q24H SC Last administered on 09/25/16 11:16 ; Admin Dose 85 MG; Start 09/23/16 at 09:00 Zolpidem Tartrate 5 mg 5 mg HS PRN PO INSOMNIA Last administered on 09/24/16 20:11; Admin Dose 5 MG; Start 09/24/16 at 10:30 Ferric Sodium Gluconate Complex/ Sodium Chloride (Ferrlecit/NS) 110 ml @ 100 mls/hr Q24H IVPB Last administered on 09/25/16 12:25; Admin Dose 100 MLS/HR; Start 09/25/16 at 12:00; Stop 09/27/16 at 13:05 Metoclopramide HCl (Reglan) 10 mg Q6 IV ; Start 09/25/16 at 18:00 Metronidazole (Flagyl) 500 mg Q8 PO ; Start 09/25/16 at 22:00 ROBB PIKCARD M.D. Sep 25, 2016 15:33
[2016-09-25] MEDS: ATORVASTATIN 20 MG TAB PO SCH (20:42)
[2016-09-25] MEDS: INSULIN GLARGINE [LANtus] 3 ML PEN SC SCH (20:45)
[2016-09-26] MEDS: METOCLOPRAMIDE 10 MG INJ IV SCH ×3 (00:02→12:19)
[2016-09-26 01:09] VITALS: PULSE 92
[2016-09-26] MEDS: ACCUCHECK AT 2AM (Patients on SS coverage) XX SCH (02:00)
[2016-09-26 05:51] LABS: ADD SCAN DIFF NO
[2016-09-26 06:17] LABS: ABNORMAL IP MESSAGE 1; BASOPHILS % 0.5 % (0.0-2.0); EOSINOPHILS # 0.1 10^3/ul (0.0-0.5); EOSINOPHILS % 0.8 % (0.0-7.0); HEMATOCRIT 31.2 % (42.0-52.0); HEMOGLOBIN 9.7 g/dl (14.0-18.0); LYMPHOCYTES # 1.1 10^3/ul (0.8-2.9); LYMPHOCYTES % 12.4 % (15.0-51.0); MEAN CORPUSCULAR HEMOGLOBIN 23.4 pg (29.0-33.0); MEAN CORPUSCULAR HGB CONC 31.1 g/dl (32.0-37.0); MEAN CORPUSCULAR VOLUME 75.2 fl (82.0-101.0); MEAN PLATELET VOLUME 9.9 fl (7.4-10.4); MONOCYTE # 0.4 10^3/ul (0.3-0.9); NEUTROPHILS % 80.5 % (39.0-77.0); PLATELET COUNT 314 10^3/UL (140-415); RED BLOOD COUNT 4.15 10^6/ul (4.70-6.10); RED CELL DISTRIBUTION WIDTH 29.3 % (11.5-14.5); WHITE BLOOD COUNT 8.7 10^3/ul (4.8-10.8)
[2016-09-26 06:28] LABS: POTASSIUM 3.1 mmol/L (3.5-5.1)
[2016-09-26 06:30] LABS: CREATININE 0.84 mg/dl (0.61-1.24)
[2016-09-26 06:31] LABS: CALCIUM 8.6 mg/dl (8.4-10.2)
[2016-09-26] MEDS: metroNIDAZOLE 500 MG TAB PO SCH ×2 (06:41→13:31)
[2016-09-26] MEDS: PANTOPRAZOLE (EC) 40 MG TAB PO SCH (06:41)
[2016-09-26] MEDS: INSULIN ASPART [NOVOLOG] 3 ML PEN SC SCH ×4 (07:59→12:32)
[2016-09-26 08:08] VITALS: BP 149/70; RESP 20
[2016-09-26] MEDS: LOSARTAN 50 MG TAB PO SCH (08:10)
[2016-09-26] MEDS: FOLIC ACID 1 MG TAB PO SCH (08:10)
[2016-09-26] MEDS: NIFEdipine (XL) 60 MG TAB PO SCH (08:10)
[2016-09-26] MEDS: ENOXAPARIN 100 MG/ML SYG SC SCH (09:10)
--- NOTE | 2016-09-26 10:13 | PN ---
DATE: 09/26/2016 Postoperative day #4. The patient is afebrile throughout. He is tolerating a soft diet and has had normal bowel function. His mobility is improving. PHYSICAL EXAMINATION: The abdomen is benign. The incision is clean and the MARQUISE drainage is serosang uineous. The pathology report is still pending. PLAN: The patient is coming along quite nicely. He should be able to be discharged tomorrow. Dictated By: MECCA DE LEON/ABDOULAYE Conf#: [id number] DID#: [id number]
[2016-09-26] MEDS: SOD FERRIC GLUC COMPLX 125 MG in SOD CHLORIDE 0.9% 100 ML IVPB SCH (12:19)
[2016-09-26] MEDS ORDERED: POTASSIUM CHLORIDE (SR) 20 MEQ TAB PO STA (12:26)
--- NOTE | 2016-09-26 12:43 | PDOCDIS ---
Discharge Instructions DIAGNOSIS Discharge Diagnosis: Acute stroke. Colon cancer. CONDITION Patient Condition: Stable HOME CARE INSTRUCTIONS: Special Diet: Soft Diet OTHER ORDERS: Other Orders: 1. Continue medications as per medication reconciliation. 2. Activities with assist. 3. Low-cholesterol, carbohydrate controlled diet [soft]. SUSAN BRAUN NP Sep 26, 2016 12:43
--- NOTE | 2016-09-26 14:09 | CONS ---
Date/Time of Note Date/Time of Note DATE: 09/26/16 TIME: 14:07 Assessment/Plan Assessment/Plan Chief Complaint/Hosp Course SUBJECTIVE: No events overnight, alert, ambulated earlier, sitting in a chair, nad ANTIMICROBIALS: Flagyl PHYSICAL EXAMINATION: GENERAL: This is well-developed, elderly man who is in no distress. HEENT: Head atraumatic, normocephalic. Sclerae anicteric. Buccal mucosa dry. NECK: Supple, trachea midline. CHEST: Rise symmetrical. Breath sounds diminished to bases. HEART: S1, S2. ABDOMEN: Soft, bowel tones present. EXTREMITIES: Without cyanosis. ASSESSMENT: 1. Clostridium difficile colitis with resolving diarrhea. 2. Colon carcinoma; no signs of distant metastases per CT, s/p resection==> 3. Anemia. 4. History of cerebrovascular accident. 5. Diabetes. PLAN: Clinically improved, continue Flagyl, PT/ambulation, f/u oncology rec-s== > pending patho. DW staff Problems: Consultation Date/Type/Reason Admit Date/Time Sep 11, 2016 at 17:05 Initial Consult Date 09/16/16 Type of Consultation: id Referring Provider: SUSAN BRAUN DOG OBEDIENCE INSTRUCTOR Exam/Review of Systems Vital Signs Vitals Vital Signs Date Time Temp Pulse Resp B/P Pulse Ox O2 Delivery O2 Flow Rate FiO2 09/26/16 08:08 98.0 85 20 149/70 97 09/26/16 08:00 Nasal Cannula 2.0 09/22/16 13:05 30 Intake and Output 09/25/16 09/25/16 09/26/16 15:00 23:00 07:00 Intake Total 400 ml 830 ml 160 ml Output Total 410 ml 120 ml 355 ml Balance -10 ml 710 ml -195 ml Results Result Diagram: 09/26/16 0535 09/26/16 0535 Results 24 hrs Laboratory Tests Test 09/25/16 17:11 09/25/16 20:36 09/26/16 05:35 09/26/16 07:45 Bedside Glucose 126 167 123 Anion Gap 18 H Basophils # 0.0 Basophils % 0.5 Blood Urea Nitrogen 15 Calcium Level 8.6 Carbon Dioxide Level 21 Chloride Level 101 Creatinine 0.84 Eosinophils # 0.1 Eosinophils % 0.8 Glucose Level 119 Hematocrit 31.2 L Hemoglobin 9.7 L Lymphocytes # 1.1 Lymphocytes % 12.4 L Magnesium Level 2.2 Mean Corpuscular Hemoglobin 23.4 L Mean Corpuscular Hemoglobin Concent 31.1 L Mean Corpuscular Volume 75.2 L Mean Platelet Volume 9.9 Monocytes # 0.4 Monocytes % 5.0 Neutrophils # 7.0 Neutrophils % 80.5 H Nucleated Red Blood Cells # 0.0 Nucleated Red Blood Cells % 0.0 Platelet Count 314 Potassium Level 3.1 L Red Blood Count 4.15 L Red Cell Distribution Width 29.3 H Sodium Level 137 White Blood Count 8.7 # Test 09/26/16 12:00 Bedside Glucose 154 Medications Medications Current Medications Lorazepam (Ativan) 0.5 mg Q6H PRN IV ANXIETY Last administered on 09/12/16 03: 17; Admin Dose 0.5 MG; Start 09/11/16 at 18:30 Aspirin (Aspirin) 81 mg DAILY PO Last administered on 09/12/16 08:32; Admin Dose 81 MG; Start 09/12/16 at 09:00; Status Future Hold Acetaminophen (Tylenol Tab) 650 mg Q6H PRN PO PAIN LEVEL 1-3 OR FEVER Last administered on 09/23/16 05:53; Admin Dose 650 MG; Start 09/11/16 at 18:30 Magnesium Hydroxide (Milk Of Mag) 30 ml DAILY PRN PO CONSTIPATION; Start at 18:30 Bisacodyl (Dulcolax) 5 mg DAILY PRN PO CONSTIPATION Last administered on 00:16; Admin Dose 5 MG; Start 09/11/16 at 18:30 Insulin Glargine (Lantus) 8 unit DAILY@20 SC Last administered on 09/25/16 20: 45; Admin Dose 8 UNIT; Start 09/11/16 at 20:00 Atorvastatin Calcium (Lipitor) 20 mg QHS PO Last administered on 09/25/16 20: 42; Admin Dose 20 MG; Start 09/11/16 at 21:00 Folic Acid (Folic Acid) 1 mg DAILY PO Last administered on 09/26/16 08:10; Admin Dose 1 MG; Start 09/12/16 at 09:00 Hydralazine HCl (Apresoline) 10 mg Q6H PRN IV SBP>180 Last administered on 09:10; Admin Dose 10 MG; Start 09/11/16 at 19:00 Diagnostic Test (Pha) (Accucheck) 1 ea 02 XX ; Start 09/12/16 at 02:00 Miscellaneous Information 1 ea NOTE XX ; Start 09/11/16 at 19:30 Glucose (Glutose) 15 gm Q15M PRN PO DECREASED GLUCOSE; Start 09/11/16 at 19:30 Glucose (Glutose) 22.5 gm Q15M PRN PO DECREASED GLUCOSE; Start 09/11/16 at 19:30 Dextrose (D50w Syringe) 25 ml Q15M PRN IV DECREASED GLUCOSE; Start 09/11/16 at 19:30 Dextrose (D50w Syringe) 50 ml Q15M PRN IV DECREASED GLUCOSE; Start 09/11/16 at 19:30 Glucagon (Glucagen) 1 mg Q15M PRN IM DECREASED GLUCOSE; Start 09/11/16 at 19:30 Glucose (Glutose) 15 gm Q15M PRN BUCCAL DECREASED GLUCOSE; Start 09/11/16 at 19: 30 Losartan Potassium (Cozaar) 50 mg BID PO Last administered on 09/26/16 08:10; Admin Dose 50 MG; Start 09/14/16 at 21:00 Nifedipine (Procardia Xl) 60 mg BID PO Last administered on 09/26/16 08:10; Admin Dose 60 MG; Start 09/14/16 at 21:00 Hydralazine HCl (Apresoline) 25 mg Q8 PO Last administered on 09/26/16 13:32; Admin Dose 25 MG; Start 09/15/16 at 14:00 Pantoprazole (Protonix Tab) 40 mg BID@18 PO Last administered on 09/26/16 06:41; Admin Dose 40 MG; Start 09/18/16 at 18:00 Ondansetron HCl (Zofran Inj) 4 mg Q6H PRN IV NAUSEA; Start 09/22/16 at 13:00 Enoxaparin Sodium (Lovenox) 85 mg Q24H SC Last administered on 09/26/16 09:10 ; Admin Dose 85 MG; Start 09/23/16 at 09:00 Zolpidem Tartrate 5 mg 5 mg HS PRN PO INSOMNIA Last administered on 09/24/16 20:11; Admin Dose 5 MG; Start 09/24/16 at 10:30 Ferric Sodium Gluconate Complex/ Sodium Chloride (Ferrlecit/NS) 110 ml @ 100 mls/hr Q24H IVPB Last administered on 09/26/16 12:19; Admin Dose 100 MLS/HR; Start 09/25/16 at 12:00; Stop 09/27/16 at 13:05 Metoclopramide HCl (Reglan) 10 mg Q6 IV Last administered on 09/26/16 12:19; Admin Dose 10 MG; Start 09/25/16 at 18:00 Metronidazole (Flagyl) 500 mg Q8 PO Last administered on 09/26/16 13:31; Admin Dose 500 MG; Start 09/25/16 at 22:00 DI HADLEY NP Sep 26, 2016 14:09
--- NOTE | 2016-09-26 20:13 | DS ---
DATE OF ADMISSION: 09/11/2016 DATE OF DISCHARGE: 09/26/2016 (Discharged to [facility].) FINAL DIAGNOSES: 1. Acute posterior communicating artery territory infarct. 2. Essential hypertension. 3. 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 Newly diagnosed. Status post resection. 4. Type 2 diabetes mellitus. 5. Dyslipidemia. 6. Microcytic, hypochromic anemia. 7. Iron deficiency. 8. Clostridium difficile colitis. CONSULTATIONS: 1. Dr. John Perea, neurology. 2. Dr. Bryce Kearney, gastroenterology. 3. Dr. Ayad Cardenas, cardiology. 4. Dr. Alverto Dubon, general surgery. 5. Dr. Lit Lora, infectious diseases. 6. Dr. Kimberly Randolph, oncology. 7. Dr. Clifford Fairbanks, oncology. 8. Dr. Robert Duffy, oncology. HOSPITAL COURSE: This is a 66-year-old male with past medical history of TIA, type 2 diabetes mellitus, neurocysticercosis, essential hypertension, dyslipidemia, and seizure disorder in the remote past who came into the emergency room, brought in by family members because of multiple complaints. The main complaint was blurred vision in bilateral eyes, dizziness, and reported confusion that has been going on for the past 2 weeks. The patient verbalized that his blurred vision started at once approximately 2 weeks prior to the ER visit. The patient denied any double vision. The patient denied any similar episodes. He denied any headaches, fevers, or chills. Denied any chest pain, dyspnea, nausea, vomiting, abdominal pain, diarrhea, or hematochezia. The patient was noticed to have a hemoglobin and hematocrit of 7.7 and 27.5, respectively, in the emergency room. The patient underwent a brain CT scan in the emergency room that showed a new 4 cm area of decreased attenuation in the right posterior occipital lobe without definite mass consistent with subacute or chronic infarct. Provided the patient's history of present illness, his comorbidities, and the diagnostic findings, a clinical decision was made to admit the patient to inpatient setting to have him further evaluated. The patient was admitted to inpatient telemetry floor. A neurology consult was obtained. Further workup for stroke including a 2D echocardiogram and carotid Doppler study was ordered. The patient underwent a brain MRI that showed subacute right EMERGENCY VETERINARY ASSISTANT territory infarcts with chronic left basal ganglia lacunar infarct. The patient was confirmed to have a stroke. The patient needed to be started on aspirin for anticoagulation. The patient was already on statins. Nevertheless, the patient had significant anemia with a hemoglobin level as low as 7.4. The patient also reported some hematochezia. Hence, a gastroenterology consult was ordered on this patient. The patient was maintained on proton pump inhibitors. The patient underwent a colonoscopy on 09/13/2016 and that showed a large circumferential mass approximately 5 cm length in the sigmoid colon, partially obstructing. Biopsies were obtained. A general surgery consult was called, as per recommendations of gastroenterology. The patient's pathology from colonoscopy showed a high-grade dysplasia with intramucosal adenocarcinoma. Hence, oncology was also involved in the patient's care. General surgery planned on surgical resection of the colonic mass. Meanwhile, the patient turned positive for Clostridium difficile colitis. Consequently, the patient was started on oral Flagyl. The patient's surgery had to be delayed because of the patient's infection with C. difficile. The patient's repeat C. diff sample from 09/19/2016 was negative. Hence, the patient underwent a resection of the sigmoid colon tumor on 09/22/2016 without any significant postoperative complications. Postoperatively, the patient was started on a clear liquid diet , and the patient's diet was advanced as tolerated to a regular consistency diet. The patient returned his bowel function without any significant delay and the patient was able to tolerate a regular consistency diet without any significant problems. The patient had accelerated hypertension upon emergency room presentation. The patient's blood pressure was controlled gradually and permissive hypertension was provided during the first 24 hours after the patient's hospitalization. The patient was also seen and evaluated by cardiology for cardiac clearance for surgical intervention. Cardiology also adjusted the patient's antihypertensive medications to obtain optimal blood pressure control. The patient has underlying diabetes mellitus. The patient's hemoglobin A1c was 6.1. The patient was maintained on sliding scale insulin along with Lantus insulin and premeal insulin. The patient has dyslipidemia. The patient's fasting lipid panel was suboptimal. The patient was maintained on statins. The patient was noticed to have microcytic hypochromic anemia. The patient received a total of 3 units of PRBC transfusion during this hospitalization. The patient was also noticed to have iron deficiency anemia. The patient was maintained on iron supplements. Once the patient's anemia improved, the patient was started on aspirin for stroke prophylaxis. The patient was also started on subcutaneous Lovenox. Infectious disease service was also involved in the patient's care because the patient's coinfection with C. difficile and the need for surgical clearance from ID standpoint. The patient was seen and evaluated by physical therapy, occupational therapy, and speech therapy. Physical therapy recommended further skilled physical therapy needs. Hence, acute rehabilitation team evaluated the patient and the patient was found to be an appropriate candidate for acute rehabilitation. Therefore, the patient will be transferred to [facility] for further rehabilitation. Although oncology recommended adjuvant chemotherapy, as per oncology notes, the patient did refused to take any chemotherapy. DISCHARGE DISPOSITION AND PLAN: The patient will be discharged to [facility]. The patient will take medications as per medication list. The patient will undergo activities with assist. He will follow a low cholesterol, carbohydrate controlled diet. The hospitalist team will be following the patient in the hospital. PERTINENT LABORATORY, DIAGNOSTIC DATA, AND PROCEDURES: 1. Colonoscopy on 09/25/2016. Large circumferential mass, 5 cm length in the sigmoid colon, partially obstructing, clearly malignant in nature. 2. Pathology from the colonic biopsy. A high-grade dysplasia with intramucosal adenocarcinoma. 3. Resection of the colonic mass with rigid sigmoidoscopy on 09/22/2016. 4. 2D echocardiogram. Ejection fraction of 65%. Stage I diastolic dysfunction. Mild aortic stenosis. 5. CT scan of the abdomen and pelvis on 09/12/2016. Slightly irregular, sigmoid wall thickening with additional subtle stranding in the adjacent mesentery, the findings of which may represent colitis, the possibility of an underlying neoplasm cannot be excluded. Sigmoid diverticulosis without evidence for diverticulitis. Moderate cardiomegaly. 6. Carotic Doppler study. No evidence of hemodynamically significant carotid stenosis. 7. Brain CT scan upon admission. New 4.0 cm area of decreased attenuation in the right posterior occipital lobe without definite mass effect, most consistent with subacute or chronic infarct. Chronic left lacunar infarct. 8. Brain MRI. Acute right EMERGENCY VETERINARY ASSISTANT territory infarct. Chronic left basal ganglia lacunar infarct. Mild to moderate volume loss with mild to moderate chronic small vessel ischemic changes. 9. Bilateral lower extremity venous Doppler study. No sonographic evidence for DVT. 10. Stool for C. diff from 09/12/2016 positive. 11. Repeat stool for C. diff from 09/19/2016 negative. 12. Latest CBC: WBC 8.7, hemoglobin 9.7, hematocrit 31.2, platelet count 314. 13. Latest BMP: Sodium 137, potassium 3.7, chloride 101, carbon dioxide 21, anion gap 18, BUN 15, creatinine 0.8, blood glucose 123, calcium 8.6. 14. Hemoglobin A1c 6.13. 15. Fasting lipid panel. Triglycerides 195, total cholesterol 113, LDL 36, HDL 36. 16. Iron panel: Iron 20, TIBC 425, iron saturation 8. 17. Stool for occult blood x1 positive. 18. Repeat stool for occult blood x1 negative. At this time, I would like to thank all the consultants for seeing the patient, doing the necessary procedures, and providing clinical recommendations. The case and management of this patient was fully discussed with Dr. Garcia. Approximately 40 minutes were spent on coordinating the discharge of this patient. SUSAN GARCIA MD, AM/ABDOULAYE Conf#: [id number] DID#: [id number] MTDD
--- NOTE | 2016-09-27 14:07 | HP ---
DATE OF ADMISSION: 09/11/2016 HISTORY OF PRESENT ILLNESS: This is an unfortunate 66-year-old gentleman with history of TIA, type 2 diabetes neurocysticercosis, hypertension, hyperlipidemia, seizure disorder, came to the emergency room on 09/11/2016 with multiple complaints including blurry vision, confusion, but no headaches, n o nausea, no vomiting, no chest pain or palpitations. He had a CT scan of the head which showed rig ht posterior occipital lobe and decreased attenuation consistent with subacute or chronic infarct. MRI of the brain confirmed subacute right MIRROR DEPARTMENT SUPERVISOR territory infarcts with chronic left basal ganglia lac unar infarct also. The patient underwent a workup for anemia which showed subsequent colonoscopy sh owed large circumferential mass in the sigmoid colon partial obstruction and he underwent resection of the sigmoid colon on 09/22/2016 with no postoperative complications. The patient now transferred to [facility] for continuing care. He had had oncology consult by Dr. Tomasa templeton to transfer here. PAST MEDICAL HISTORY: 1. Past medical history is recent adenocarcinoma. 2. Cerebrovascular accident. 3. Hypertension 4. Neurocysticercosis 5. Diabetes. 6. Seizure disorder. MEDICATIONS: Include 1. Aspirin 81 mg p.o. daily. 2. Lovenox 85 mg subq daily. 3. Folic acid. 4. Insulin NovoLog. 5. Flagyl 500 mg q.8h. 6. Hydralazine 25 mg p.o. q. 8. 7. Lipitor 20 mg p.o. at bedtime. 8. Cozaar 50 mg p.o. b.i.d. 9. Nifedipine 60 mg p.o. b.i.d. 10. Insulin Glargine 8 units subq daily. 11. Protonix 40 mg p.o. b.i.d. ALLERGIES: NONE. SOCIAL HISTORY: Nonsmoker, no alcohol, no history of drug use. FAMILY HISTORY: Noncontributory. SYSTEMS REVIEW: A 12-point review of systems was negative other than that mentioned above. PHYSICAL EXAMINATION: GENERAL: Elderly-appearing gentleman, comfortable at rest, no acute distress. VITAL SIGNS: Currently afebrile, pulse is 80, blood pressure 150/68, O2 saturation 96% on room air. NECK: Supple. No JVD or lymphadenopathy. CARDIAC: S1, S2, no added sounds or murmurs. CHEST: Diminished air entry bilaterally. ABDOMEN: Soft, nontender. No guarding or rebound. EXTREMITIES: No cyanosis, clubbing, edema. NEUROLOGIC: Generalized weakness. LABORATORY DATA: White count 7.6, hemoglobin 10.8, platelets of 374, potassium 3.1. IMPRESSION AND PLAN: 1. Recent cerebrovascular accident. 2. Recent diagnosis of adenocarcinoma with sigmoid resection. 3. History of hypertension. 4. History of neurocysticercosis. PLAN: 1. Continue postop surgical recommendations. 2. Continue physical therapy. 3. Hematology/oncology recommendations. 4. Chart notes that the family do not wish to pursue conventional adjuvant chemotherapy, they wish to pursue homeopathic treatment. Dictated By: FAHAD SCHUSTER/ABDOULAYE Conf#: [id number] DID#: [id number]
== END 2016-09-26 16:55 | DRG 981 ==
LOC: E/R 14:05 → MS4 17:05 → PP2 09-19 20:28 → TEL 09-22 15:25 → MS2 09-25 15:55
PROVIDERS: ADMIT Family Medicine; ATTEND Family Medicine
PROC: 0DBN8ZX Excision of Sigmoid Colon, Via Natural or Artificial Opening Endoscopic, Diagnostic (ICD-10-PCS; 2016-09-13)
PROC: 0DBP0ZZ Excision of Rectum, Open Approach (ICD-10-PCS; 2016-09-22)
PROC: 0DJD8ZZ Inspection of Lower Intestinal Tract, Via Natural or Artificial Opening Endoscopic (ICD-10-PCS; 2016-09-22)
PROC: 0DBN0ZZ Excision of Sigmoid Colon, Open Approach (ICD-10-PCS; principal; 2016-09-22 09:30)
DX: I63.9 Cerebral infarction, unspecified (principal); A04.7 Enterocolitis due to Clostridium difficile; G93.49 Other encephalopathy; K56.69 Other intestinal obstruction; C18.7 Malignant neoplasm of sigmoid colon; I10 Essential (primary) hypertension; D50.0 Iron deficiency anemia secondary to blood loss (chronic); E87.5 Hyperkalemia; E11.9 Type 2 diabetes mellitus without complications; E78.5 Hyperlipidemia, unspecified; Z79.4 Long term (current) use of insulin; Z86.73 Personal history of transient ischemic attack (TIA), and cerebral infarction without residual deficits; Z86.19 Personal history of other infectious and parasitic diseases
CPT/HCPCS: 36415; 36430; 70450; 70551; 71010; 74176; 80048; 80053; 80061; 80307; 81001; 81003; 82270; 82378; 82550; 82553; 82728; 82962; 83036; 83540; 83690; 83735; 83880; 84100; 84439; 84443; 84484; 85025; 85378; 85610; 85730; 86850; 86900; 86901; 86920; 87075; 87081; 92610; 93005; 93306; 93880; 93970; 94660; 97110; 97116; 97163; 97164; 97530; J1940; C9113; J0360; J0690; J1170; J1650; J1815; J2060; J2250; J2270; J2274; J2405; J2710; J2765; J2795; J2916; J3010; J7040; P9016

== ENCOUNTER 2016-09-26 17:15 | Inpatient (IN) | payer OTHER, MEDICARE ==
[~2016-09-26] VITALS: Ht 160 cm; Wt 85.9 kg
[~2016-09-26 17:15] MED LIST changes: +ASPI-664 PO; +ATOR20TA38 PO; +CLON-379 PO; +FELO10TA PO; +FOLI-49 PO; +LOSA50TA6 PO; +METF850T PO; -METFORMIN PO; -PENICILLIN PO
[2016-09-26 17:30] VITALS: BP 151/72; PULSE 85; RESP 20
[2016-09-26 18:54] LABS: ADD UMIC YES; URINE BILIRUBIN (Dip) 1+ (NEGATIVE); URINE BLOOD (Dip) TRACE (NEGATIVE); URINE COLOR YELLOW (YELLOW); URINE GLUCOSE (Dip) NEGATIVE (NEGATIVE); URINE KETONES (Dip) 15 (NEGATIVE); URINE LEUKOCYTE ESTERASE (Dip) NEGATIVE (NEGATIVE); URINE NITRITE (Dip) POSITIVE (NEGATIVE); URINE TOTAL PROTEIN (Dip) 1+ (NEGATIVE); URINE UROBILINOGEN (Dip) 0.2 E.U./dL (0.1-1.0)
[2016-09-26] MEDS ORDERED: GLUCOSE GEL 15 GRAM TUBE BUCCAL PRN (19:00)
[2016-09-26] MEDS ORDERED: GLUCOSE GEL 15 GRAM TUBE PO PRN ×2 (19:00)
[2016-09-26] MEDS ORDERED: ZOLPIDEM 5 MG TAB PO PRN (19:00)
[2016-09-26] MEDS ORDERED: MAGNESIUM HYDROXIDE 30ML CUP PO PRN (19:00)
[2016-09-26] MEDS ORDERED: FOLIC ACID 1 MG TAB PO SCH (19:00)
[2016-09-26] MEDS ORDERED: DEXTROSE 50% 50 ML SYRINGE IV PRN ×2 (19:00)
[2016-09-26] MEDS ORDERED: BISACODYL (EC) 5 MG TAB PO PRN (19:00)
[2016-09-26 19:13] LABS: BACTERIA,URINE FEW; ICTOTEST NEGATIVE (NEGATIVE); SPERM,URINE FEW; SQUAMOUS EPITHELIAL CELL,UR MODERATE
[2016-09-26 19:16] VITALS: BP 145/69; RESP 20
[2016-09-26] MEDS: INSULIN GLARGINE [LANtus] 3 ML PEN SC SCH (20:37)
[2016-09-26] MEDS: ATORVASTATIN 20 MG TAB PO SCH (20:39)
[2016-09-26] MEDS: LOSARTAN 50 MG TAB PO SCH (20:39)
[2016-09-26] MEDS: FERROUS SULFATE (EC) 325 MG TAB PO SCH (20:39)
[2016-09-26] MEDS: PANTOPRAZOLE (EC) 40 MG TAB PO SCH (20:39)
[2016-09-26] MEDS: NIFEdipine (XL) 60 MG TAB PO SCH (20:40)
[2016-09-26] MEDS: INSULIN ASPART [NOVOLOG] 3 ML PEN SC SCH (21:00)
[2016-09-26] MEDS: metroNIDAZOLE 500 MG TAB PO SCH (21:38)
[2016-09-27] MEDS: ACCUCHECK AT 2AM (Patients on SS coverage) XX SCH (02:00)
[2016-09-27] MEDS: metroNIDAZOLE 500 MG TAB PO SCH ×3 (05:54→21:24)
[2016-09-27] MEDS: PANTOPRAZOLE (EC) 40 MG TAB PO SCH ×2 (05:54→17:44)
[2016-09-27 07:29] LABS: ADD SCAN DIFF NO
[2016-09-27 07:30] VITALS: BP 176/77; RESP 18
[2016-09-27 07:35] LABS: ABNORMAL IP MESSAGE 1; BASOPHIL # 0.1 10^3/ul (0.0-0.1); BASOPHILS % 0.8 % (0.0-2.0); EOSINOPHILS # 0.1 10^3/ul (0.0-0.5); EOSINOPHILS % 1.6 % (0.0-7.0); HEMATOCRIT 35.7 % (42.0-52.0); HEMOGLOBIN 10.8 g/dl (14.0-18.0); LYMPHOCYTES # 1.4 10^3/ul (0.8-2.9); LYMPHOCYTES % 18.6 % (15.0-51.0); MEAN CORPUSCULAR HEMOGLOBIN 22.9 pg (29.0-33.0); MEAN CORPUSCULAR HGB CONC 30.3 g/dl (32.0-37.0); MEAN CORPUSCULAR VOLUME 75.6 fl (82.0-101.0); MEAN PLATELET VOLUME 10.7 fl (7.4-10.4); MONOCYTE # 0.5 10^3/ul (0.3-0.9); MONOCYTES % 6.7 % (0.0-11.0); NEUTROPHIL # 5.3 10^3/ul (1.6-7.5); NEUTROPHILS % 69.1 % (39.0-77.0); PLATELET COUNT 374 10^3/UL (140-415); RED BLOOD COUNT 4.72 10^6/ul (4.70-6.10); RED CELL DISTRIBUTION WIDTH 29.8 % (11.5-14.5); WHITE BLOOD COUNT 7.6 10^3/ul (4.8-10.8)
[2016-09-27] MEDS: INSULIN ASPART [NOVOLOG] 3 ML PEN SC SCH ×7 (07:35→21:00)
[2016-09-27 07:52] LABS: ALBUMIN 3.1 g/dl (3.3-4.9)
[2016-09-27 07:53] LABS: POTASSIUM 3.1 mmol/L (3.5-5.1)
[2016-09-27 07:55] LABS: BILIRUBIN,INDIRECT 0.1 mg/dl (0-1.1); BILIRUBIN,TOTAL 0.1 mg/dl (0.2-1.3); CREATININE 0.72 mg/dl (0.61-1.24)
[2016-09-27 07:56] LABS: ALBUMIN/GLOBULIN RATIO 0.88; CALCIUM 8.7 mg/dl (8.4-10.2); TOTAL PROTEIN 6.6 g/dl (6.1-8.1)
[2016-09-27] MEDS: FOLIC ACID 1 MG TAB PO SCH (08:52)
[2016-09-27] MEDS: FERROUS SULFATE (EC) 325 MG TAB PO SCH ×2 (08:52→21:24)
[2016-09-27] MEDS: LOSARTAN 50 MG TAB PO SCH ×2 (08:53→21:25)
[2016-09-27] MEDS: NIFEdipine (XL) 60 MG TAB PO SCH ×2 (08:53→21:24)
[2016-09-27] MEDS: ASPIRIN 81 MG TAB PO SCH (08:53)
[2016-09-27] MEDS ORDERED: ONDANSETRON 4 MG INJ IV PRN (09:00)
[2016-09-27] MEDS ORDERED: NACL 0.9% 3 ML SYG IV SCH (09:00)
[2016-09-27] MEDS ORDERED: SOD FERRIC GLUC COMPLX 125 MG in SOD CHLORIDE 0.9% 100 ML IVPB SCH (09:00)
[2016-09-27] MEDS ORDERED: METOCLOPRAMIDE 10 MG INJ IV SCH (09:00)
[2016-09-27] MEDS ORDERED: hydrALAzine 20 MG INJ IV PRN (09:00)
[2016-09-27] MEDS ORDERED: LORAZEPAM 2 MG INJ IV PRN (09:00)
[2016-09-27 10:35] VITALS: BP 154/68; PULSE 96; RESP 18
--- NOTE | 2016-09-27 13:17 | CONS ---
DATE OF ADMISSION: 09/26/2016 DATE OF CONSULTATION: 09/27/2016 TYPE OF CONSULTATION:. REHABILITATION POST-ADMISSION PHYSICIAN EVALUATION REHABILITATION IMPAIRMENT CATEGORY: DRAFTER CASTINGS infarct CVA. ACTIVE COMORBIDITIES: 1. Adenocarcinoma of the colon, status post resection. 2. Hypertension. 3. Diabetes mellitus type 2. 4. Dyslipidemia. 5. Anemia. 6. Status post Clostridium difficile. 7. Impairments in self-care, mobility and cognition. HISTORY OF PRESENT ILLNESS: The patient is a pleasant 66-year-old gentleman with a history of diabe jose mellitus and previous TIAs who was admitted on 09/11/2016 for acute CVA. The patient was noted to have an acute right DRAFTER CASTINGS infarct. During hospitalization, the patient was noted to have an episod e of hematochezia which the patient reported ongoing for several months. Workup did reveal a sigmoi d colon mass. 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 The pat ient underwent a resection of the colon mass on 09/22/2016. Postoperatively, the patient has been n oted to have significant impairments in self-care and mobility and cognition as compared to baseline , and has been cleared to transfer to the rehabilitation unit for comprehensive interdisciplinary re hab care. FUNCTIONAL HISTORY: Prior to recent events, he was independent in self-care tasks and mobility. Cu rrently, he requires maximal assist for self-care and maximal assist for mobility tasks. I have reviewed the preadmission screen and the patient's current functional status is consistent wi th the preadmission screen. SOCIAL HISTORY: The patient lives at home with a very supportive family and hopes to return there u jair discharge. PAST MEDICAL HISTORY: 1. Hypertension. 2. Diabetes mellitus type 2. 3. Dyslipidemia. CURRENT MEDICATIONS: 1. Aspirin 81 mg p.o. daily. 2. Lipitor 20 mg p.o. at bedtime. 3. Lovenox 85 mg subcutaneous daily. 4. Folic acid 1 mg p.o. daily. 5. Insulin sliding scale. 6. Lantus 8 units subcutaneous daily. 7. Cozaar 50 mg p.o. b.i.d. 8. Flagyl 500 mg p.o. q. 8. 9. Procardia-XL 60 mg p.o. b.i.d. 10. Protonix 40 mg p.o. b.i.d. 11. Ambien p.r.n. ALLERGIES: THE PATIENT WITH NO KNOWN DRUG ALLERGIES. PHYSICAL EXAMINATION: VITAL SIGNS: The patient is currently afebrile with stable vital signs. HEENT: Extraocular motions are intact. Oropharynx clear. NECK: Supple. LUNGS: Clear anteriorly. CARDIAC: S1, S2. ABDOMEN: Soft, nontender, positive bowel sounds. NEUROLOGIC: The patient is awake and alert and oriented to person. He will follow simple 1-step co mmands. He demonstrates antigravity strength in bilateral upper extremity and lower extremity. He does have impaired static and dynamic balance. PLAN: The patient has been admitted for comprehensive interdisciplinary acute rehab and is anticipa karla to tolerate 3 hours of daily therapy in divided doses for at least 5/7 days a week. Treatment p jen will include: 1. Physical therapy to focus on bed mobility, transfers, and household ambulation with the goal of having the patient reach standby assist level. 2. Occupational therapy to focus on hygiene, grooming, dressing, bathing, and toileting activities with the goal of having the patient reach standby assist level. 3. Speech therapy for full cognitive assessment in addition to dysphagia management with the goal o f having patient return to baseline cognition and meet nutritional needs by mouth. 4. Rehabilitation nursing for carryover of therapeutic interventions, the goal of continent of yvonne l and bladder, and the goal of pain adequately managed on oral medications. REHABILITATION BARRIER: Cognition. INTERVENTION FOR BARRIER: Speech therapy. ESTIMATED LENGTH OF STAY: 14 days. DISPOSITION GOAL: Home. I acknowledge that I performed a full physical examination on this patient within 24 hours of admiss ion to the rehabilitation unit. I believe the patient is a good candidate for comprehensive interdi sciplinary rehab care and is anticipated to make reasonable goals in a reasonable period of time as outlined above. Dictated By: SHEILA FRANKEL/ABDOULAYE Conf#: [id number] DID#: [id number]
[2016-09-27 14:19] VITALS: BP 143/69; PULSE 86; RESP 18
--- NOTE | 2016-09-27 17:47 | PN ---
DATE: 09/27/2016 SUBJECTIVE: This is postoperative day #5. Patient is fully awake and alert. He has ambulated toda y. He continues to tolerate p.o. and have normal bowel function. ABDOMEN: Benign. His incision is clean. The MARQUISE drainage site is clean, but the MARQUISE has dislodged o ut of the intraperitoneal position. 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 PLAN: On today's visit, I removed the MARQUISE drain at the bedside. I have also emphasized to the patie nt and the importance of chemotherapy. There is documentation in the chart that the son indica jose that the patient will never agree to chemotherapy, but after my discussion with the patient and , the patient not only agrees to chemotherapy, he is anxious to proceed, so therefore oncologic followup is necessary. I will see the patient again in one week's time in the office for staple rem oval. Dictated By: MECCA DE LEON/ABDOULAYE Conf#: [id number] DID#: [id number]
[2016-09-27] MEDS: ENOXAPARIN 100 MG/ML SYG SC SCH (17:51)
[2016-09-27 19:16] VITALS: BP 163/74; RESP 20
[2016-09-27] MEDS: ATORVASTATIN 20 MG TAB PO SCH (21:30)
[2016-09-27] MEDS: INSULIN GLARGINE [LANtus] 3 ML PEN SC SCH (21:30)
[2016-09-27 23:52] VITALS: BP 150/71; PULSE 80
[2016-09-28] MEDS: ACCUCHECK AT 2AM (Patients on SS coverage) XX SCH (02:00)
[2016-09-28 05:57] VITALS: BP 162/72; PULSE 73
[2016-09-28] MEDS: metroNIDAZOLE 500 MG TAB PO SCH ×3 (05:58→22:08)
[2016-09-28] MEDS: PANTOPRAZOLE (EC) 40 MG TAB PO SCH ×2 (05:58→17:30)
[2016-09-28 07:30] VITALS: BP 153/70; RESP 18
[2016-09-28] MEDS: INSULIN ASPART [NOVOLOG] 3 ML PEN SC SCH ×7 (07:35→22:18)
[2016-09-28] MEDS: FERROUS SULFATE (EC) 325 MG TAB PO SCH ×2 (08:58→22:09)
[2016-09-28] MEDS: FOLIC ACID 1 MG TAB PO SCH (08:58)
[2016-09-28] MEDS: ASPIRIN 81 MG TAB PO SCH (08:58)
[2016-09-28] MEDS: LOSARTAN 50 MG TAB PO SCH ×2 (08:59→22:09)
[2016-09-28] MEDS: NIFEdipine (XL) 60 MG TAB PO SCH ×2 (08:59→22:09)
[2016-09-28] MEDS: ENOXAPARIN 100 MG/ML SYG SC SCH (09:01)
[2016-09-28] MEDS: ACETAMINOPHEN 325 MG TAB PO PRN (10:28)
--- NOTE | 2016-09-28 11:36 | CONS ---
Date/Time of Note Date/Time of Note DATE: 09/28/16 TIME: 11:35 Consult Date/Type/Reason Admit Date/Time Sep 26, 2016 at 17:15 Initial Consult Date Type of Consultation: internal medicine Subjective Patient comfortable this morning continues physical therapy ambulating with a walker Objective Vital Signs Date Time Temp Pulse Resp B/P Pulse Ox O2 Delivery O2 Flow Rate FiO2 09/28/16 05:57 73 162/72 09/27/16 19:16 98.3 20 97 09/27/16 14:19 Room Air Intake and Output 09/27/16 09/27/16 09/28/16 15:00 23:00 07:00 Intake Total 450 ml 240 ml 200 ml Output Total 121 ml 300 ml 1400 ml Balance 329 ml -60 ml -1200 ml Exam PHYSICAL EXAMINATION: GENERAL: Elderly-appearing gentleman, comfortable at rest, no acute distress. VITAL SIGNS: As above NECK: Supple. No JVD or lymphadenopathy. CARDIAC: S1, S2, no added sounds or murmurs. CHEST: Diminished air entry bilaterally. ABDOMEN: Soft, nontender. No guarding or rebound. EXTREMITIES: No cyanosis, clubbing, NEUROLOGIC: Generalized weakness. Results/Medications Result Diagram: 09/27/16 0620 09/27/16 0630 Results 24 hrs Laboratory Tests Test 09/27/16 12:00 09/27/16 17:25 09/27/16 20:17 09/28/16 07:23 Bedside Glucose 157 153 174 114 Medications Current Medications Aspirin (Aspirin) 81 mg DAILY PO Last administered on 09/28/16 08:58; Admin Dose 81 MG; Start 09/27/16 at 09:00 Acetaminophen (Tylenol Tab) 650 mg Q6H PRN PO PAIN LEVEL 1-3 OR FEVER Last administered on 09/28/16 10:28; Admin Dose 650 MG; Start 09/26/16 at 19:00 Magnesium Hydroxide (Milk Of Mag) 30 ml DAILY PRN PO CONSTIPATION; Start at 19:00 Bisacodyl (Dulcolax) 5 mg DAILY PRN PO CONSTIPATION; Start 09/26/16 at 19:00 Insulin Glargine (Lantus) 8 unit DAILY@20 SC Last administered on 09/27/16 21: 30; Admin Dose 8 UNIT; Start 09/26/16 at 20:00 Atorvastatin Calcium (Lipitor) 20 mg QHS PO Last administered on 09/27/16 21: 30; Admin Dose 20 MG; Start 09/26/16 at 21:00 Diagnostic Test (Pha) (Accucheck) 1 ea 02 XX ; Start 09/27/16 at 02:00 Miscellaneous Information 1 ea NOTE XX ; Start 09/27/16 at 09:00 Glucose (Glutose) 15 gm Q15M PRN PO DECREASED GLUCOSE; Start 09/26/16 at 19:00 Glucose (Glutose) 22.5 gm Q15M PRN PO DECREASED GLUCOSE; Start 09/26/16 at 19: 00 Dextrose (D50w Syringe) 25 ml Q15M PRN IV DECREASED GLUCOSE; Start 09/26/16 at 19:00 Dextrose (D50w Syringe) 50 ml Q15M PRN IV DECREASED GLUCOSE; Start 09/26/16 at 19:00 Glucose (Glutose) 15 gm Q15M PRN BUCCAL DECREASED GLUCOSE; Start 09/26/16 at 19 :00 Losartan Potassium (Cozaar) 50 mg BID PO Last administered on 09/28/16 08:59; Admin Dose 50 MG; Start 09/26/16 at 21:00 Nifedipine (Procardia Xl) 60 mg BID PO Last administered on 09/28/16 08:59; Admin Dose 60 MG; Start 09/26/16 at 21:00 Pantoprazole (Protonix Tab) 40 mg BID@06,18 PO Last administered on 09/28/16 05:58; Admin Dose 40 MG; Start 09/26/16 at 18:00 Enoxaparin Sodium (Lovenox) 85 mg Q24H SC Last administered on 09/28/16 09:01 ; Admin Dose 85 MG; Start 09/27/16 at 09:00 Zolpidem Tartrate (Ambien) 5 mg HS PRN PO INSOMNIA; Start 09/26/16 at 19:00 Metronidazole (Flagyl) 500 mg Q8 PO Last administered on 09/28/16 05:58; Admin Dose 500 MG; Start 09/26/16 at 22:00 Ferrous Sulfate (Ferrous Sulfate (Ec)) 325 mg BID PO Last administered on 08:58; Admin Dose 325 MG; Start 09/26/16 at 21:00 Hydralazine HCl (Apresoline) 25 mg Q8 PO Last administered on 09/28/16 05:59; Admin Dose 25 MG; Start 09/26/16 at 22:00 Folic Acid (Folic Acid) 1 mg DAILY PO Last administered on 09/28/16 08:58; Admin Dose 1 MG; Start 09/27/16 at 09:00 Assessment/Plan Chief Complaint/Hosp Course IMPRESSION 1. Recent cerebrovascular accident. 2. Recent diagnosis of adenocarcinoma with sigmoid resection. 3. History of hypertension. 4. History of neurocysticercosis. PLAN: 1. Continue postop surgical recommendations. 2. Continue physical therapy. 3. Hematology/oncology recommendations. 4. Chart notes that the family do not wish to pursue conventional adjuvant chemotherapy, they wish to pursue homeopathic treatment. Problems: FAHAD BARDALES MD, [facility] Sep 28, 2016 11:36
--- NOTE | 2016-09-28 13:16 | CONS ---
Date/Time of Note Date/Time of Note DATE: 09/28/16 TIME: 13:12 Consult Date/Type/Reason Admit Date/Time Sep 26, 2016 at 17:15 Initial Consult Date Type of Consultation: internal medicine Subjective Called this morning by RN regarding urinary retention Objective pulm-cta max assist transfer Vital Signs Date Time Temp Pulse Resp B/P Pulse Ox O2 Delivery O2 Flow Rate FiO2 09/28/16 05:57 73 162/72 09/27/16 19:16 98.3 20 97 09/27/16 14:19 Room Air Intake and Output 09/27/16 09/27/16 09/28/16 15:00 23:00 07:00 Intake Total 450 ml 240 ml 200 ml Output Total 121 ml 300 ml 1400 ml Balance 329 ml -60 ml -1200 ml Exam Rehab- HEAT REGULATOR infarct CVA. Continue interdisc rehab therapy - I and O cath and urology consult for urinary retention Adenocarcinoma of the colon, status post resection. Hypertension. Diabetes mellitus type 2. Dyslipidemia. Anemia. Status post Clostridium difficile. Results/Medications Result Diagram: 09/27/16 0620 09/27/16 0630 Results 24 hrs Laboratory Tests Test 09/27/16 17:25 09/27/16 20:17 09/28/16 07:23 09/28/16 11:44 Bedside Glucose 153 174 114 146 Medications Current Medications Aspirin (Aspirin) 81 mg DAILY PO Last administered on 09/28/16 08:58; Admin Dose 81 MG; Start 09/27/16 at 09:00 Acetaminophen (Tylenol Tab) 650 mg Q6H PRN PO PAIN LEVEL 1-3 OR FEVER Last administered on 09/28/16 10:28; Admin Dose 650 MG; Start 09/26/16 at 19:00 Magnesium Hydroxide (Milk Of Mag) 30 ml DAILY PRN PO CONSTIPATION; Start at 19:00 Bisacodyl (Dulcolax) 5 mg DAILY PRN PO CONSTIPATION; Start 09/26/16 at 19:00 Insulin Glargine (Lantus) 8 unit DAILY@20 SC Last administered on 09/27/16 21: 30; Admin Dose 8 UNIT; Start 09/26/16 at 20:00 Atorvastatin Calcium (Lipitor) 20 mg QHS PO Last administered on 09/27/16 21: 30; Admin Dose 20 MG; Start 09/26/16 at 21:00 Diagnostic Test (Pha) (Accucheck) 1 ea 02 XX ; Start 09/27/16 at 02:00 Miscellaneous Information 1 ea NOTE XX ; Start 09/27/16 at 09:00 Glucose (Glutose) 15 gm Q15M PRN PO DECREASED GLUCOSE; Start 09/26/16 at 19:00 Glucose (Glutose) 22.5 gm Q15M PRN PO DECREASED GLUCOSE; Start 09/26/16 at 19: 00 Dextrose (D50w Syringe) 25 ml Q15M PRN IV DECREASED GLUCOSE; Start 09/26/16 at 19:00 Dextrose (D50w Syringe) 50 ml Q15M PRN IV DECREASED GLUCOSE; Start 09/26/16 at 19:00 Glucose (Glutose) 15 gm Q15M PRN BUCCAL DECREASED GLUCOSE; Start 09/26/16 at 19 :00 Losartan Potassium (Cozaar) 50 mg BID PO Last administered on 09/28/16 08:59; Admin Dose 50 MG; Start 09/26/16 at 21:00 Nifedipine (Procardia Xl) 60 mg BID PO Last administered on 09/28/16 08:59; Admin Dose 60 MG; Start 09/26/16 at 21:00 Pantoprazole (Protonix Tab) 40 mg BID@06,18 PO Last administered on 09/28/16 05:58; Admin Dose 40 MG; Start 09/26/16 at 18:00 Enoxaparin Sodium (Lovenox) 85 mg Q24H SC Last administered on 09/28/16 09:01 ; Admin Dose 85 MG; Start 09/27/16 at 09:00 Zolpidem Tartrate (Ambien) 5 mg HS PRN PO INSOMNIA; Start 09/26/16 at 19:00 Metronidazole (Flagyl) 500 mg Q8 PO Last administered on 09/28/16 05:58; Admin Dose 500 MG; Start 09/26/16 at 22:00 Ferrous Sulfate (Ferrous Sulfate (Ec)) 325 mg BID PO Last administered on 08:58; Admin Dose 325 MG; Start 09/26/16 at 21:00 Hydralazine HCl (Apresoline) 25 mg Q8 PO Last administered on 09/28/16 05:59; Admin Dose 25 MG; Start 09/26/16 at 22:00 Folic Acid (Folic Acid) 1 mg DAILY PO Last administered on 09/28/16t 08:58; Admin Dose 1 MG; Start 09/27/16 at 09:00 SHEILA MARIE MD Sep 28, 2016 13:16
[2016-09-28 14:53] VITALS: BP 144/67; PULSE 67; RESP 18
[2016-09-28 20:00] VITALS: BP 152/72; RESP 20
--- NOTE | 2016-09-28 21:06 | CONS ---
DATE OF ADMISSION: 09/26/2016 DATE OF CONSULTATION: 09/28/2016 REQUESTING PHYSICIAN: Dr. Chiquita Cheng and Dr. Tito Landers HISTORY OF PRESENT ILLNESS: The patient is a 66-year-old male who initially was admitted to [facility] on 09/11/2016 because of blurred vision, dizziness and confusion. The patient was worked up and had a CT of the brain and an MRI of the brain which showed decreased attenuation in the right posterior occipital lobe with definitive mass effect most consistent with subacute on c hronic infarct. The patient was treated. He improved. However, he was anemic, and he has had a bl ood transfusion before. Therefore he underwent workup, and he did have a colonoscopy and was found to have a large 5 cm mass in the sigmoid colon at 25 cm, partially obstructing, clearly malignant in nature, and biopsy was done, and then later on the patient underwent colon resection, and as he rec overed from that and was stable, he was transferred to the rehab unit for further rehabilitation. T he patient did have an indwelling Duque catheter, and once was removed, he has not been able to urin ate, requiring in-and-out catheterization, and therefore a urological consultation was requested. T he patient states that prior to his recent sickness, he used to get up at night and urinate 2 times. During the day, he urinates every 1-1/2 hours. His urinary stream is slow, and he, however, was n ot taking any medications for his prostate. PAST MEDICAL HISTORY: He does have a history of hypertension and diabetes mellitus for 17 years and high cholesterol also, and he has had a history of anemia. He did have C. difficile, and the patie nt also does have a history of neurocysticercosis, history of TIA and seizure disorder in the remote past. ALLERGIES: HE HAS NO KNOWN DRUG ALLERGIES. SOCIAL HISTORY: He lives at home, does not work. He used to smoke a lot. He did smoke 3 packs a d ay for 30 years, and he quit 17 years ago when he found out that he has diabetes and at the same sin e stopped drinking alcohol as well. REVIEW OF SYSTEMS: Negative except what is mentioned in this history. MEDICATIONS HE PRESENTLY IS ON: Include: 1. Aspirin. 2. Lovenox. 3. Folic acid. 4. Insulin. 5. Flagyl. 6. Apresoline. 7. Lipitor. 8. Cozaar. 9. Procardia. 10. Ferrous sulfate. 11. Insulin again. 12. Milk of magnesia. 13. Dulcolax. 14. Zolpidem. 15. Pantoprazole. IMAGING: On admission, he had a CT scan of the abdomen and pelvis, and the urinary bladder was with in normal limits. The prostate was not evaluated on that CT scan. I reviewed the CT scan of the ab domen and pelvis, and basically it shows that the prostate is enlarged and growing into the bladder. The prostate measures about 52 mm in transverse diameter and about 45 mm in the anteroposterior si ze, and that would make it reasonably large. PHYSICAL EXAMINATION: GENERAL: An elderly male. He is 85.9 kg. He is 63 inches tall. VITAL SIGNS: His temperature is 98.0, pulse 67, respirations 18, blood pressure 144/67. NECK: Supple. There is no cervical adenopathy. ABDOMEN: He does have a scar in the lower abdomen from his recent colon resection surgery. EXTERNAL GENITALIA: He does have mild phimosis. The testes are in the scrotum. RECTAL: A soft and enlarged prostate. IMPRESSION: Postoperative urinary retention. This could be multifactorial. The fact that he did h ave a cerebrovascular accident, also the fact that he does have a large prostate, that he is bedridd en and also had pelvic surgery, all these could contribute to him having problem with urination. RECOMMENDATION: Continue to do straight cath on him as needed. I will, however, start him on Floma x 0.4 mg twice a day, and hopefully that would help him urinate. I will follow his urological problem with you. I do thank you for allowing me to help in his care. Dictated By: SUSAN MERINO/ABDOULAYE Conf#: [id number] DID#: [id number]
[2016-09-28] MEDS: ATORVASTATIN 20 MG TAB PO SCH (22:09)
[2016-09-28] MEDS: TAMSULOSIN (SR) 0.4 MG CAP PO SCH (22:10)
[2016-09-28] MEDS: INSULIN GLARGINE [LANtus] 3 ML PEN SC SCH (22:17)
[2016-09-29] MEDS: ACCUCHECK AT 2AM (Patients on SS coverage) XX SCH (02:00)
[2016-09-29] MEDS: PANTOPRAZOLE (EC) 40 MG TAB PO SCH ×2 (06:00→17:47)
[2016-09-29] MEDS: metroNIDAZOLE 500 MG TAB PO SCH ×3 (06:01→21:25)
[2016-09-29 06:02] VITALS: BP 144/71; PULSE 80
[2016-09-29 07:36] VITALS: BP 146/68; RESP 18
[2016-09-29] MEDS: TAMSULOSIN (SR) 0.4 MG CAP PO SCH ×2 (08:40→21:25)
[2016-09-29] MEDS: NIFEdipine (XL) 60 MG TAB PO SCH ×2 (08:40→21:25)
[2016-09-29] MEDS: FERROUS SULFATE (EC) 325 MG TAB PO SCH ×2 (08:40→21:25)
[2016-09-29] MEDS: LOSARTAN 50 MG TAB PO SCH ×2 (08:40→21:26)
[2016-09-29] MEDS: FOLIC ACID 1 MG TAB PO SCH (08:40)
[2016-09-29] MEDS: ASPIRIN 81 MG TAB PO SCH (08:41)
[2016-09-29] MEDS: INSULIN ASPART [NOVOLOG] 3 ML PEN SC SCH ×7 (08:42→21:00)
[2016-09-29] MEDS: ENOXAPARIN 100 MG/ML SYG SC SCH (08:46)
--- NOTE | 2016-09-29 12:45 | CONS ---
Date/Time of Note Date/Time of Note DATE: 09/29/16 TIME: 12:44 Consult Date/Type/Reason Admit Date/Time Sep 26, 2016 at 17:15 Type of Consultation: internal medicine Subjective no new complaints Objective pulm- cta abd-soft Vital Signs Date Time Temp Pulse Resp B/P Pulse Ox O2 Delivery O2 Flow Rate FiO2 09/29/16 07:36 98.0 78 18 146/68 96 09/28/16 14:53 Room Air Intake and Output 09/28/16 09/28/16 09/29/16 15:00 23:00 07:00 Intake Total 420 ml 300 ml Balance 420 ml 300 ml Results/Medications Result Diagram: 09/27/16 0620 09/27/16 0630 Results 24 hrs Laboratory Tests Test 09/28/16 17:20 09/28/16 20:16 09/29/16 02:16 09/29/16 07:37 Bedside Glucose 177 188 115 150 Test 09/29/16 11:54 Bedside Glucose 210 Medications Current Medications Aspirin (Aspirin) 81 mg DAILY PO Last administered on 09/29/16 08:41; Admin Dose 81 MG; Start 09/27/16 at 09:00 Acetaminophen (Tylenol Tab) 650 mg Q6H PRN PO PAIN LEVEL 1-3 OR FEVER Last administered on 09/28/16 10:28; Admin Dose 650 MG; Start 09/26/16 at 19:00 Magnesium Hydroxide (Milk Of Mag) 30 ml DAILY PRN PO CONSTIPATION; Start at 19:00 Bisacodyl (Dulcolax) 5 mg DAILY PRN PO CONSTIPATION; Start 09/26/16 at 19:00 Insulin Glargine (Lantus) 8 unit DAILY@20 SC Last administered on 09/28/16 22: 17; Admin Dose 8 UNIT; Start 09/26/16 at 20:00 Atorvastatin Calcium (Lipitor) 20 mg QHS PO Last administered on 09/28/16 22: 09; Admin Dose 20 MG; Start 09/26/16 at 21:00 Diagnostic Test (Pha) (Accucheck) 1 ea 02 XX ; Start 09/27/16 at 02:00 Miscellaneous Information 1 ea NOTE XX ; Start 09/27/16 at 09:00 Glucose (Glutose) 15 gm Q15M PRN PO DECREASED GLUCOSE; Start 09/26/16 at 19:00 Glucose (Glutose) 22.5 gm Q15M PRN PO DECREASED GLUCOSE; Start 09/26/16 at 19: 00 Dextrose (D50w Syringe) 25 ml Q15M PRN IV DECREASED GLUCOSE; Start 09/26/16 at 19:00 Dextrose (D50w Syringe) 50 ml Q15M PRN IV DECREASED GLUCOSE; Start 09/26/16 at 19:00 Glucose (Glutose) 15 gm Q15M PRN BUCCAL DECREASED GLUCOSE; Start 09/26/16 at 19 :00 Losartan Potassium (Cozaar) 50 mg BID PO Last administered on 09/29/16 08:40; Admin Dose 50 MG; Start 09/26/16 at 21:00 Nifedipine (Procardia Xl) 60 mg BID PO Last administered on 09/29/16 08:40; Admin Dose 60 MG; Start 09/26/16 at 21:00 Pantoprazole (Protonix Tab) 40 mg BID@,18 PO Last administered on 09/29/16 06:00; Admin Dose 40 MG; Start 09/26/16 at 18:00 Enoxaparin Sodium (Lovenox) 85 mg Q24H SC Last administered on 09/29/16 08:46 ; Admin Dose 85 MG; Start 09/27/16 at 09:00 Zolpidem Tartrate (Ambien) 5 mg HS PRN PO INSOMNIA; Start 09/26/16 at 19:00 Metronidazole (Flagyl) 500 mg Q8 PO Last administered on 09/29/16 06:01; Admin Dose 500 MG; Start 09/26/16 at 22:00 Ferrous Sulfate (Ferrous Sulfate (Ec)) 325 mg BID PO Last administered on 08:40; Admin Dose 325 MG; Start 09/26/16 at 21:00 Hydralazine HCl (Apresoline) 25 mg Q8 PO Last administered on 09/29/16 06:01; Admin Dose 25 MG; Start 09/26/16 at 22:00 Folic Acid (Folic Acid) 1 mg DAILY PO Last administered on 09/29/16 08:40; Admin Dose 1 MG; Start 09/27/16 at 09:00 Tamsulosin HCl (Flomax) 0.4 mg BID PO Last administered on 09/29/16 08:40; Admin Dose 0.4 MG; Start 09/28/16 at 21:00 Assessment/Plan Additional Assessment/Plan Rehab- REAL ESTATE INVESTOR infarct CVA. Continue rehab program. Patient very motivated, and has supportive family - appreciate urology consult for urinary retention Adenocarcinoma of the colon, status post resection. Hypertension. Diabetes mellitus type 2. Dyslipidemia. Anemia. Status post Clostridium difficile. SHEILA MARIE MD Sep 29, 2016 12:45
[2016-09-29] MEDS: ACETAMINOPHEN 325 MG TAB PO PRN (13:13)
--- NOTE | 2016-09-29 15:20 | PN ---
DATE: SUBJECTIVE: Mr. Flaherty is stable this morning. Continue physical therapy. Son is at bedside . OBJECTIVE: VITAL SIGNS: Temperature 98, pulse 78, blood pressure 146/68, O2 saturation 96% on room air. NECK: Supple. No JVD or lymphadenopathy. CARDIAC: S1, S2, no added sounds or murmurs. CHEST: Diminished air entry bilaterally. ABDOMEN: Soft, nontender. No guarding or rebound. EXTREMITIES: No cyanosis, clubbing, edema. NEUROLOGIC: Generalized weakness. LABORATORY DATA: Pending at time of this dictation. IMPRESSION AND PLAN: 1. History of urinary retention likely secondary to BPH. To continue Flomax with urology recommend ations. 2. History of cerebrovascular accident. 3. History of adenocarcinoma with sigmoid colon resection. PLAN: 1. Continue urology recommendations. 2. Continue physical therapy. 3. The patient and family declined chemotherapy at this point. Dictated By: FAHAD SCHUSTER/ABDOULAYE Conf#: [id number] DID#: [id number]
[2016-09-29 19:46] VITALS: BP 152/72; RESP 20
--- NOTE | 2016-09-29 21:19 | PN ---
DATE: 09/29/2016 SUBJECTIVE: Urinary retention. Patient unable to urinate. OBJECTIVE FINDINGS: VITAL SIGNS: His temperature is 98.0, pulse is 78, respiration 18, blood pressure 146/68. ABDOMEN: Soft. PLAN: Continue to check his post-voiding and postvoid residual and straight cath him as needed. Dictated By: SUSAN MERINO/ABDOULAYE Conf#: [id number] DID#: [id number]
[2016-09-29] MEDS: ATORVASTATIN 20 MG TAB PO SCH (21:25)
[2016-09-29] MEDS: INSULIN GLARGINE [LANtus] 3 ML PEN SC SCH (21:34)
[2016-09-30] MEDS: ACCUCHECK AT 2AM (Patients on SS coverage) XX SCH (02:00)
[2016-09-30 06:33] VITALS: BP 149/70; PULSE 89; RESP 16
[2016-09-30] MEDS: metroNIDAZOLE 500 MG TAB PO SCH ×3 (06:34→20:37)
[2016-09-30] MEDS: PANTOPRAZOLE (EC) 40 MG TAB PO SCH ×2 (06:34→17:41)
[2016-09-30] MEDS: INSULIN ASPART [NOVOLOG] 3 ML PEN SC SCH ×7 (07:35→20:41)
[2016-09-30] MEDS: FOLIC ACID 1 MG TAB PO SCH (09:01)
[2016-09-30] MEDS: ASPIRIN 81 MG TAB PO SCH (09:01)
[2016-09-30] MEDS: FERROUS SULFATE (EC) 325 MG TAB PO SCH ×2 (09:01→20:36)
[2016-09-30] MEDS: ENOXAPARIN 100 MG/ML SYG SC SCH (09:02)
[2016-09-30] MEDS: TAMSULOSIN (SR) 0.4 MG CAP PO SCH ×2 (09:04→20:35)
[2016-09-30] MEDS: NIFEdipine (XL) 60 MG TAB PO SCH ×2 (09:05→20:35)
[2016-09-30] MEDS: LOSARTAN 50 MG TAB PO SCH ×2 (09:05→20:36)
--- NOTE | 2016-09-30 11:45 | PN ---
Date/Time of Note Date/Time of Note DATE: 09/30/16 TIME: 11:37 Assessment/Plan VTE Prophylaxis VTE Prophylaxis Intervention: LMWH Lines/Catheters IV Catheter Type (from Nrsg): Saline Lock Assessment/Plan Assessment/Plan 1. Acute Right DIRECTOR SEMICONDUCTOR CVA with impaired mobility/gait/ADLs/cognition. Continue PT/ OT/ST. Mod assist for bed mobility and transfers. Continue secondary stroke prevention. 2. Urinary retention. Continue medical management per urology. Continue to monitor PVRs, I/O cath as needed. 3. Adenocarcinoma of the colon, status post resection. Management per oncology and general surgery. Continue surgical site care. 4. Hypertension. Internal medicine managing. Continue to monitor BP. 5. Diabetes mellitus type 2. Blood sugars controlled, continue insulin regimen per internal medicine. 6. Dyslipidemia. Continue statin. 7. Anemia. Monitor hemoglobin/hematocrit. Subjective 24 Hr Interval Summary Free Text/Dictation Rehab progress note Subjective: Denies any acute complaints. Nursing reports no acute overnight events. ROS: Denies headache, no dizziness, no abdominal pain, no nausea, no chills, no chest pain, no shortness of breath. Still requiring intermittent straight catheterization. Exam/Review of Systems Vital Signs Vitals Vital Signs Date Time Temp Pulse Resp B/P Pulse Ox O2 Delivery O2 Flow Rate FiO2 09/30/16 06:33 89 16 149/70 09/29/16 19:46 98.3 98 09/28/16 14:53 Room Air Intake and Output 09/29/16 09/29/16 09/30/16 15:00 23:00 07:00 Intake Total 480 ml 240 ml 400 ml Output Total 150 ml 1200 ml Balance 330 ml 240 ml -800 ml Exam General: Awake, alert, no acute distress CV: Regular rate, s1s2 Lungs: Clear to auscultation, no wheezing Abdomen soft, nontender, dressing in place Extremities: No cyanosis, no distal edema Neuro: Follows simple commands. Antigravity strength BUE/BLE. Results Result Diagram: 09/27/16 0620 09/27/16 0630 Results 24 hrs Laboratory Tests Test 09/29/16 11:54 09/29/16 17:25 09/29/16 20:53 09/30/16 07:51 Bedside Glucose 210 183 156 124 Medications Medications Current Medications Aspirin (Aspirin) 81 mg DAILY PO Last administered on 09/30/16 09:01; Admin Dose 81 MG; Start 09/27/16 at 09:00 Acetaminophen (Tylenol Tab) 650 mg Q6H PRN PO PAIN LEVEL 1-3 OR FEVER Last administered on 09/29/16 13:13; Admin Dose 650 MG; Start 09/26/16 at 19:00 Magnesium Hydroxide (Milk Of Mag) 30 ml DAILY PRN PO CONSTIPATION; Start at 19:00 Bisacodyl (Dulcolax) 5 mg DAILY PRN PO CONSTIPATION; Start 09/26/16 at 19:00 Insulin Glargine (Lantus) 8 unit DAILY@20 SC Last administered on 09/29/16 21: 34; Admin Dose 8 UNIT; Start 09/26/16 at 20:00 Atorvastatin Calcium (Lipitor) 20 mg QHS PO Last administered on 09/29/16 21: 25; Admin Dose 20 MG; Start 09/26/16 at 21:00 Diagnostic Test (Pha) (Accucheck) 1 ea 02 XX ; Start 09/27/16 at 02:00 Miscellaneous Information 1 ea NOTE XX ; Start 09/27/16 at 09:00 Glucose (Glutose) 15 gm Q15M PRN PO DECREASED GLUCOSE; Start 09/26/16 at 19:00 Glucose (Glutose) 22.5 gm Q15M PRN PO DECREASED GLUCOSE; Start 09/26/16 at 19: 00 Dextrose (D50w Syringe) 25 ml Q15M PRN IV DECREASED GLUCOSE; Start 09/26/16 at 19:00 Dextrose (D50w Syringe) 50 ml Q15M PRN IV DECREASED GLUCOSE; Start 09/26/16 at 19:00 Glucose (Glutose) 15 gm Q15M PRN BUCCAL DECREASED GLUCOSE; Start 09/26/16 at 19 :00 Losartan Potassium (Cozaar) 50 mg BID PO Last administered on 09/30/16 09:05; Admin Dose 50 MG; Start 09/26/16 at 21:00 Nifedipine (Procardia Xl) 60 mg BID PO Last administered on 09/30/16 09:05; Admin Dose 60 MG; Start 09/26/16 at 21:00 Pantoprazole (Protonix Tab) 40 mg BID@06,18 PO Last administered on 09/30/16 06:34; Admin Dose 40 MG; Start 09/26/16 at 18:00 Enoxaparin Sodium (Lovenox) 85 mg Q24H SC Last administered on 09/30/16 09:02 ; Admin Dose 85 MG; Start 09/27/16 at 09:00 Zolpidem Tartrate (Ambien) 5 mg HS PRN PO INSOMNIA; Start 09/26/16 at 19:00 Metronidazole (Flagyl) 500 mg Q8 PO Last administered on 09/30/16 06:34; Admin Dose 500 MG; Start 09/26/16 at 22:00 Ferrous Sulfate (Ferrous Sulfate (Ec)) 325 mg BID PO Last administered on 09:01; Admin Dose 325 MG; Start 09/26/16 at 21:00 Hydralazine HCl (Apresoline) 25 mg Q8 PO Last administered on 09/30/16 06:34; Admin Dose 25 MG; Start 09/26/16 at 22:00 Folic Acid (Folic Acid) 1 mg DAILY PO Last administered on 09/30/16 09:01; Admin Dose 1 MG; Start 09/27/16 at 09:00 Tamsulosin HCl (Flomax) 0.4 mg BID PO Last administered on 09/30/16 09:04; Admin Dose 0.4 MG; Start 09/28/16 at 21:00 LESLIE COLLADO Sep 30, 2016 11:45
--- NOTE | 2016-09-30 13:12 | PN ---
DATE: 09/30/2016 SUBJECTIVE: Urinary retention. The patient has not been able to urinate and he initially had a Fol ey catheter that was removed, and he is still unable to urinate, so he is on intermittent catheteriz ation for a postvoid residual of 300 or if not voiding, with a bladder scan volume of 500. OBJECTIVE: VITAL SIGNS: His temperature is 98.3, pulse is 89, respirations 16, blood pressure 149/70. This morning, patient was unable to urinate and he was catheterized for 600 mL. Last night, he also was catheterized for another 600 mL. The patient is on tamsulosin already twice a day. PLAN: To continue the tamsulosin and continue to check his voiding and his postvoid residuals and s traight cath him as needed. Dictated By: SUSAN MERINO/ABDOULAYE Conf#: [id number] DID#: [id number]
--- NOTE | 2016-09-30 14:58 | CONS ---
Date/Time of Note Date/Time of Note DATE: 09/30/16 TIME: 14:56 Assessment/Plan Assessment/Plan Additional Assessment/Plan Assessment and plan : 1. Patient admitted for abdominal pain status post bowel resection. With significant clinical improvement. 2. Diabetes. 2. Hypertension. Continue current treatment. Patient getting physical therapy. Consultation Date/Type/Reason Admit Date/Time Sep 26, 2016 at 17:15 Initial Consult Date Type of Consultation: internal medicine 24 HR Interval Summary Free Text/Dictation Patient condition is stable. Getting physical therapy. Patient is completely awake alert denies any shortness of breath, chest pain. Any abdominal pain, nausea vomiting. General exam; elderly male, currently in no distress. Awake and alert. Exam/Review of Systems Vital Signs Vitals Vital Signs Date Time Temp Pulse Resp B/P Pulse Ox O2 Delivery O2 Flow Rate FiO2 09/30/16 06:33 89 16 149/70 09/29/16 19:46 98.3 98 09/28/16 14:53 Room Air Intake and Output 09/29/16 09/29/16 09/30/16 15:00 23:00 07:00 Intake Total 480 ml 240 ml 400 ml Output Total 150 ml 1200 ml Balance 330 ml 240 ml -800 ml Exam HEENT exam is; supple neck, no JVD. No lymphadenopathy. Midline trachea. No thyromegaly. Pharynx clear. Chest examination; to auscultation. S1-S2 audible, no murmurs. Regular rhythm. Abdomen examination; soft, midline dressing in place. Bowel sounds audible. No organomegaly. Extremity examination; no peripheral edema. QUALITY CONTROL TECHNICIAN examination no focal deficit. Results Result Diagram: 09/27/16 0620 09/27/16 0630 Results 24 hrs Laboratory Tests Test 09/29/16 17:25 09/29/16 20:53 09/30/16 07:51 09/30/16 12:09 Bedside Glucose 183 156 124 167 Medications Medications Current Medications Aspirin (Aspirin) 81 mg DAILY PO Last administered on 09/30/16 09:01; Admin Dose 81 MG; Start 09/27/16 at 09:00 Acetaminophen (Tylenol Tab) 650 mg Q6H PRN PO PAIN LEVEL 1-3 OR FEVER Last administered on 09/29/16 13:13; Admin Dose 650 MG; Start 09/26/16 at 19:00 Magnesium Hydroxide (Milk Of Mag) 30 ml DAILY PRN PO CONSTIPATION; Start at 19:00 Bisacodyl (Dulcolax) 5 mg DAILY PRN PO CONSTIPATION; Start 09/26/16 at 19:00 Insulin Glargine (Lantus) 8 unit DAILY@20 SC Last administered on 09/29/16 21: 34; Admin Dose 8 UNIT; Start 09/26/16 at 20:00 Atorvastatin Calcium (Lipitor) 20 mg QHS PO Last administered on 09/29/16 21: 25; Admin Dose 20 MG; Start 09/26/16 at 21:00 Diagnostic Test (Pha) (Accucheck) 1 ea 02 XX ; Start 09/27/16 at 02:00 Miscellaneous Information 1 ea NOTE XX ; Start 09/27/16 at 09:00 Glucose (Glutose) 15 gm Q15M PRN PO DECREASED GLUCOSE; Start 09/26/16 at 19:00 Glucose (Glutose) 22.5 gm Q15M PRN PO DECREASED GLUCOSE; Start 09/26/16 at 19: 00 Dextrose (D50w Syringe) 25 ml Q15M PRN IV DECREASED GLUCOSE; Start 09/26/16 at 19:00 Dextrose (D50w Syringe) 50 ml Q15M PRN IV DECREASED GLUCOSE; Start 09/26/16 at 19:00 Glucose (Glutose) 15 gm Q15M PRN BUCCAL DECREASED GLUCOSE; Start 09/26/16 at 19 :00 Losartan Potassium (Cozaar) 50 mg BID PO Last administered on 09/30/16 09:05; Admin Dose 50 MG; Start 09/26/16 at 21:00 Nifedipine (Procardia Xl) 60 mg BID PO Last administered on 09/30/16 09:05; Admin Dose 60 MG; Start 09/26/16 at 21:00 Pantoprazole (Protonix Tab) 40 mg BID@06,18 PO Last administered on 09/30/16 06:34; Admin Dose 40 MG; Start 09/26/16 at 18:00 Enoxaparin Sodium (Lovenox) 85 mg Q24H SC Last administered on 09/30/16 09:02 ; Admin Dose 85 MG; Start 09/27/16 at 09:00 Zolpidem Tartrate (Ambien) 5 mg HS PRN PO INSOMNIA; Start 09/26/16 at 19:00 Metronidazole (Flagyl) 500 mg Q8 PO Last administered on 09/30/16 13:47; Admin Dose 500 MG; Start 09/26/16 at 22:00 Ferrous Sulfate (Ferrous Sulfate (Ec)) 325 mg BID PO Last administered on 09:01; Admin Dose 325 MG; Start 09/26/16 at 21:00 Hydralazine HCl (Apresoline) 25 mg Q8 PO Last administered on 09/30/16 06:34; Admin Dose 25 MG; Start 09/26/16 at 22:00 Folic Acid (Folic Acid) 1 mg DAILY PO Last administered on 09/30/16 09:01; Admin Dose 1 MG; Start 09/27/16 at 09:00 Tamsulosin HCl (Flomax) 0.4 mg BID PO Last administered on 09/30/16 09:04; Admin Dose 0.4 MG; Start 09/28/16 at 21:00 EMILIA BIRMINGHAM Sep 30, 2016 14:58
[2016-09-30 19:51] VITALS: BP 144/67; RESP 18
[2016-09-30] MEDS: ATORVASTATIN 20 MG TAB PO SCH (20:35)
[2016-09-30] MEDS: INSULIN GLARGINE [LANtus] 3 ML PEN SC SCH (20:38)
[2016-10-01] MEDS: ACCUCHECK AT 2AM (Patients on SS coverage) XX SCH (02:00)
[2016-10-01] MEDS: metroNIDAZOLE 500 MG TAB PO SCH ×3 (06:40→21:03)
[2016-10-01] MEDS: PANTOPRAZOLE (EC) 40 MG TAB PO SCH ×2 (06:40→17:13)
[2016-10-01 07:29] VITALS: BP 139/67; RESP 18
[2016-10-01] MEDS: INSULIN ASPART [NOVOLOG] 3 ML PEN SC SCH ×7 (07:35→21:00)
[2016-10-01] MEDS: ENOXAPARIN 100 MG/ML SYG SC SCH (08:09)
[2016-10-01] MEDS: ASPIRIN 81 MG TAB PO SCH (08:10)
[2016-10-01] MEDS: LOSARTAN 50 MG TAB PO SCH ×2 (08:10→21:04)
[2016-10-01] MEDS: FOLIC ACID 1 MG TAB PO SCH (08:10)
[2016-10-01] MEDS: FERROUS SULFATE (EC) 325 MG TAB PO SCH ×2 (08:10→21:04)
[2016-10-01] MEDS: NIFEdipine (XL) 60 MG TAB PO SCH ×2 (08:10→21:04)
[2016-10-01] MEDS: TAMSULOSIN (SR) 0.4 MG CAP PO SCH ×2 (08:10→21:04)
[2016-10-01 08:29] LABS: POTASSIUM 3.6 mmol/L (3.5-5.1)
[2016-10-01 08:31] LABS: CREATININE 0.66 mg/dl (0.61-1.24)
[2016-10-01 08:32] LABS: CALCIUM 8.7 mg/dl (8.4-10.2)
--- NOTE | 2016-10-01 10:03 | PN ---
Date/Time of Note Date/Time of Note DATE: 10/01/16 TIME: 10:01 Assessment/Plan VTE Prophylaxis VTE Prophylaxis Intervention: LMWH Lines/Catheters IV Catheter Type (from Nrs): Saline Lock Assessment/Plan Assessment/Plan 1. Acute Right [employer] CVA with impaired mobility/gait/ADLs/cognition. Continue PT/ OT/ST, secondary stroke prevention. Currently requires moderate assistance for lower body dressing and toileting. 2. Urinary retention. Continue to monitor PVRs, I/O cath as needed, urology following and medically managing. 3. Adenocarcinoma of the colon, status post resection. Management per oncology and general surgery. Continue to monitor surgical site. 4. Hypertension. Continue to monitor BP. Internal medicine managing. 5. Diabetes mellitus type 2. Blood sugars controlled, continue insulin regimen. 6. Dyslipidemia. Continue statin. 7. Anemia. Monitor hemoglobin/hematocrit. Subjective 24 Hr Interval Summary Free Text/Dictation Rehab progress note Subjective: Denies acute complaints. ROS: Denies chest pain, no shortness of breath, no abdominal pain, no vomiting, no chills, no diarrhea. Exam/Review of Systems Vital Signs Vitals Vital Signs Date Time Temp Pulse Resp B/P Pulse Ox O2 Delivery O2 Flow Rate FiO2 10/01/16 07:29 98.2 71 18 139/67 96 09/28/16 14:53 Room Air Intake and Output 09/30/16 09/30/16 10/01/16 15:00 23:00 07:00 Intake Total 350 ml Output Total 975 ml Balance -625 ml Exam General: Awake, alert, no acute distress CV: Regular rate, audible s1s2 Lungs: Symmetrical air entry bilaterally, no wheezing or crackles Abdomen soft, nontender Extremities: No cyanosis, no new swelling. Neuro: No new focal changes. Follows simple commands. Results Result Diagram: 09/27/16 0620 10/01/16 0634 Results 24 hrs Laboratory Tests Test 09/30/16 12:09 09/30/16 17:07 09/30/16 20:33 10/01/16 06:34 Bedside Glucose 167 103 166 Sodium Level 139 Potassium Level 3.6 Chloride Level 105 Carbon Dioxide Level 26 Anion Gap 12 Blood Urea Nitrogen 12 Creatinine 0.66 Glucose Level 118 Calcium Level 8.7 Test 10/01/16 07:43 Bedside Glucose 123 Medications Medications Current Medications Aspirin (Aspirin) 81 mg DAILY PO Last administered on 10/01/16 08:10; Admin Dose 81 MG; Start 09/27/16 at 09:00 Acetaminophen (Tylenol Tab) 650 mg Q6H PRN PO PAIN LEVEL 1-3 OR FEVER Last administered on 09/29/16 13:13; Admin Dose 650 MG; Start 09/26/16 at 19:00 Magnesium Hydroxide (Milk Of Mag) 30 ml DAILY PRN PO CONSTIPATION; Start at 19:00 Bisacodyl (Dulcolax) 5 mg DAILY PRN PO CONSTIPATION; Start 09/26/16 at 19:00 Insulin Glargine (Lantus) 8 unit DAILY@20 SC Last administered on 09/30/16 20: 38; Admin Dose 8 UNIT; Start 09/26/16 at 20:00 Atorvastatin Calcium (Lipitor) 20 mg QHS PO Last administered on 09/30/16 20: 35; Admin Dose 20 MG; Start 09/26/16 at 21:00 Diagnostic Test (Pha) (Accucheck) 1 ea 02 XX ; Start 09/27/16 at 02:00 Miscellaneous Information 1 ea NOTE XX ; Start 09/27/16 at 09:00 Glucose (Glutose) 15 gm Q15M PRN PO DECREASED GLUCOSE; Start 09/26/16 at 19:00 Glucose (Glutose) 22.5 gm Q15M PRN PO DECREASED GLUCOSE; Start 09/26/16 at 19: 00 Dextrose (D50w Syringe) 25 ml Q15M PRN IV DECREASED GLUCOSE; Start 09/26/16 at 19:00 Dextrose (D50w Syringe) 50 ml Q15M PRN IV DECREASED GLUCOSE; Start 09/26/16 at 19:00 Glucose (Glutose) 15 gm Q15M PRN BUCCAL DECREASED GLUCOSE; Start 09/26/16 at 19 :00 Losartan Potassium (Cozaar) 50 mg BID PO Last administered on 10/01/16 08:10; Admin Dose 50 MG; Start 09/26/16 at 21:00 Nifedipine (Procardia Xl) 60 mg BID PO Last administered on 10/01/16 08:10; Admin Dose 60 MG; Start 09/26/16 at 21:00 Pantoprazole (Protonix Tab) 40 mg BID@06,18 PO Last administered on 10/01/16 06:40; Admin Dose 40 MG; Start 09/26/16 at 18:00 Enoxaparin Sodium (Lovenox) 85 mg Q24H SC Last administered on 10/01/16 08:09 ; Admin Dose 85 MG; Start 09/27/16 at 09:00 Zolpidem Tartrate (Ambien) 5 mg HS PRN PO INSOMNIA; Start 09/26/16 at 19:00 Metronidazole (Flagyl) 500 mg Q8 PO Last administered on 10/01/16 06:40; Admin Dose 500 MG; Start 09/26/16 at 22:00 Ferrous Sulfate (Ferrous Sulfate (Ec)) 325 mg BID PO Last administered on 08:10; Admin Dose 325 MG; Start 09/26/16 at 21:00 Hydralazine HCl (Apresoline) 25 mg Q8 PO Last administered on 10/01/16 06:40; Admin Dose 25 MG; Start 09/26/16 at 22:00 Folic Acid (Folic Acid) 1 mg DAILY PO Last administered on 10/01/16 08:10; Admin Dose 1 MG; Start 09/27/16 at 09:00 Tamsulosin HCl (Flomax) 0.4 mg BID PO Last administered on 10/01/16 08:10; Admin Dose 0.4 MG; Start 09/28/16 at 21:00 LESLIE COLLADO Oct 01, 2016 10:03 LESLIE COLLADO Oct 01, 2016 10:03
--- NOTE | 2016-10-01 16:51 | PN ---
DATE: 10/01/2016 SUBJECTIVE: Urinary retention. The patient has not been able to empty his bladder completely. He states that he did urinate around 9:00 a little bit, and apparently his postvoid residual at that ti me was about 50 mL, so no catheterization was done. However, last night he was catheterized for 800 mL, and just right now the nurse check him with a bladder scan and the bladder volume is 669, so brennan alcantara is going to do a straight catheterization on him. OBJECTIVE: VITAL SIGNS: His temperature is 98.2. The blood pressure is 139/67. The pulse is 71 and respirati on 18. LABORATORY DATA: His BUN is 12, creatinine 0.66. IMPRESSION: Urinary retention. The patient is already on tamsulosin 0.4 mg twice a day and we shal l continue to check his postvoid residual and do a straight catheterization on him for a PVR of over 300 or bladder scan over 500. Dictated By: SUSAN MERINO/ABDOULAYE Conf#: [id number] DID#: [id number]
[2016-10-01 20:20] VITALS: BP 150/70; RESP 18
[2016-10-01] MEDS: ATORVASTATIN 20 MG TAB PO SCH (21:04)
[2016-10-01] MEDS: INSULIN GLARGINE [LANtus] 3 ML PEN SC SCH (21:08)
[2016-10-02] MEDS: ACCUCHECK AT 2AM (Patients on SS coverage) XX SCH (02:00)
[2016-10-02] MEDS: metroNIDAZOLE 500 MG TAB PO SCH ×3 (05:55→20:31)
[2016-10-02] MEDS: PANTOPRAZOLE (EC) 40 MG TAB PO SCH ×2 (05:55→17:23)
[2016-10-02] MEDS: INSULIN ASPART [NOVOLOG] 3 ML PEN SC SCH ×7 (07:35→20:37)
[2016-10-02] MEDS: FOLIC ACID 1 MG TAB PO SCH (08:07)
[2016-10-02] MEDS: ENOXAPARIN 100 MG/ML SYG SC SCH (08:07)
[2016-10-02] MEDS: NIFEdipine (XL) 60 MG TAB PO SCH ×2 (08:07→20:31)
[2016-10-02] MEDS: FERROUS SULFATE (EC) 325 MG TAB PO SCH ×2 (08:08→20:30)
[2016-10-02] MEDS: TAMSULOSIN (SR) 0.4 MG CAP PO SCH ×2 (08:08→20:30)
[2016-10-02] MEDS: ASPIRIN 81 MG TAB PO SCH (08:08)
[2016-10-02] MEDS: LOSARTAN 50 MG TAB PO SCH ×2 (08:08→20:30)
[2016-10-02 08:30] VITALS: BP 155/73; RESP 18
--- NOTE | 2016-10-02 13:25 | CONS ---
Date/Time of Note Date/Time of Note DATE: 10/02/16 TIME: 13:25 Consult Date/Type/Reason Admit Date/Time Sep 26, 2016 at 17:15 Type of Consultation: internal medicine Subjective Long d/w family regarding current medical/functional status, and dc needs. Objective Vital Signs Date Time Temp Pulse Resp B/P Pulse Ox O2 Delivery O2 Flow Rate FiO2 10/02/16 08:30 98.3 89 18 155/73 97 09/28/16 14:53 Room Air Intake and Output 10/01/16 10/01/16 10/02/16 15:00 23:00 07:00 Intake Total 880 ml 240 ml 670 ml Output Total 1960 ml 1600 ml Balance -1080 ml 240 ml -930 ml INTERDISCIPLINARY TEAM CONFERENCE BOWEL- Cont BLADDER-urinary retention SKIN- intact OT- DRESSING-min BATHING-min TOILETING-min PT- BED MOBILITY-min/mod TRANSFERS-min/mod AMBULATION-min/mod 75 feet x 2 SPEECH- COGNITION-min DYPHAGIA-mech soft diet A/P- Interdisciplinary team conference held today. Please see interdisciplinary sheet. Working toward d.c. on 10/13 with post discharge follow up of physical therapy, occupational therapy, home health RN for urinary retention follow up. Results/Medications Result Diagram: 10/01/16 0634 Results 24 hrs Laboratory Tests Test 10/01/16 16:32 10/01/16 20:28 10/02/16 07:41 10/02/16 11:49 Bedside Glucose 165 173 131 147 Medications Current Medications Aspirin (Aspirin) 81 mg DAILY PO Last administered on 10/02/16 08:08; Admin Dose 81 MG; Start 09/27/16 at 09:00 Acetaminophen (Tylenol Tab) 650 mg Q6H PRN PO PAIN LEVEL 1-3 OR FEVER Last administered on 09/29/16 13:13; Admin Dose 650 MG; Start 09/26/16 at 19:00 Magnesium Hydroxide (Milk Of Mag) 30 ml DAILY PRN PO CONSTIPATION; Start at 19:00 Bisacodyl (Dulcolax) 5 mg DAILY PRN PO CONSTIPATION; Start 09/26/16 at 19:00 Insulin Glargine (Lantus) 8 unit DAILY@20 SC Last administered on 10/01/16 21: 08; Admin Dose 8 UNIT; Start 09/26/16 at 20:00 Atorvastatin Calcium (Lipitor) 20 mg QHS PO Last administered on 10/01/16 21: 04; Admin Dose 20 MG; Start 09/26/16 at 21:00 Diagnostic Test (Pha) (Accucheck) 1 ea 02 XX ; Start 09/27/16 at 02:00 Miscellaneous Information 1 ea NOTE XX ; Start 09/27/16 at 09:00 Glucose (Glutose) 15 gm Q15M PRN PO DECREASED GLUCOSE; Start 09/26/16 at 19:00 Glucose (Glutose) 22.5 gm Q15M PRN PO DECREASED GLUCOSE; Start 09/26/16 at 19: 00 Dextrose (D50w Syringe) 25 ml Q15M PRN IV DECREASED GLUCOSE; Start 09/26/16 at 19:00 Dextrose (D50w Syringe) 50 ml Q15M PRN IV DECREASED GLUCOSE; Start 09/26/16 at 19:00 Glucose (Glutose) 15 gm Q15M PRN BUCCAL DECREASED GLUCOSE; Start 09/26/16 at 19 :00 Losartan Potassium (Cozaar) 50 mg BID PO Last administered on 10/02/16 08:08; Admin Dose 50 MG; Start 09/26/16 at 21:00 Nifedipine (Procardia Xl) 60 mg BID PO Last administered on 10/02/16 08:07; Admin Dose 60 MG; Start 09/26/16 at 21:00 Pantoprazole (Protonix Tab) 40 mg BID@06,18 PO Last administered on 10/02/16 05:55; Admin Dose 40 MG; Start 09/26/16 at 18:00 Enoxaparin Sodium (Lovenox) 85 mg Q24H SC Last administered on 10/02/16 08:07 ; Admin Dose 85 MG; Start 09/27/16 at 09:00 Zolpidem Tartrate (Ambien) 5 mg HS PRN PO INSOMNIA; Start 09/26/16 at 19:00 Metronidazole (Flagyl) 500 mg Q8 PO Last administered on 10/02/16 05:55; Admin Dose 500 MG; Start 09/26/16 at 22:00 Ferrous Sulfate (Ferrous Sulfate (Ec)) 325 mg BID PO Last administered on 08:08; Admin Dose 325 MG; Start 3/21/17 at 21:00 Hydralazine HCl (Apresoline) 25 mg Q8 PO Last administered on 10/02/16 05:54; Admin Dose 25 MG; Start 09/26/16 at 22:00 Folic Acid (Folic Acid) 1 mg DAILY PO Last administered on 10/02/16 08:07; Admin Dose 1 MG; Start 09/27/16 at 09:00 Tamsulosin HCl (Flomax) 0.4 mg BID PO Last administered on 10/02/16 08:08; Admin Dose 0.4 MG; Start 09/28/16 at 21:00 SHEILA MARIE MD Oct 02, 2016 13:25
--- NOTE | 2016-10-02 16:57 | CONS ---
Date/Time of Note Date/Time of Note DATE: 10/02/16 TIME: 16:56 Consult Date/Type/Reason Admit Date/Time Sep 26, 2016 at 17:15 Type of Consultation: internal medicine Subjective Patient comfortable this morning no events overnight Objective Vital Signs Date Time Temp Pulse Resp B/P Pulse Ox O2 Delivery O2 Flow Rate FiO2 10/02/16 08:30 98.3 89 18 155/73 97 09/28/16 14:53 Room Air Intake and Output 10/01/16 10/01/16 10/02/16 15:00 23:00 07:00 Intake Total 880 ml 240 ml 670 ml Output Total 1960 ml 1600 ml Balance -1080 ml 240 ml -930 ml Exam OBJECTIVE: VITAL SIGNS: As above NECK: Supple. No JVD or lymphadenopathy. CARDIAC: S1, S2, no added sounds or murmurs. CHEST: Diminished air entry bilaterally. ABDOMEN: Soft, nontender. No guarding or rebound. EXTREMITIES: No cyanosis, clubbing, edema. NEUROLOGIC: Hemiplegia Results/Medications Result Diagram: 10/01/16 0634 Results 24 hrs Laboratory Tests Test 10/01/16 20:28 10/02/16 07:41 10/02/16 11:49 Bedside Glucose 173 131 147 Medications Current Medications Aspirin (Aspirin) 81 mg DAILY PO Last administered on 10/02/16 08:08; Admin Dose 81 MG; Start 09/27/16 at 09:00 Acetaminophen (Tylenol Tab) 650 mg Q6H PRN PO PAIN LEVEL 1-3 OR FEVER Last administered on 09/29/16 13:13; Admin Dose 650 MG; Start 09/26/16 at 19:00 Magnesium Hydroxide (Milk Of Mag) 30 ml DAILY PRN PO CONSTIPATION; Start at 19:00 Bisacodyl (Dulcolax) 5 mg DAILY PRN PO CONSTIPATION; Start 09/26/16 at 19:00 Insulin Glargine (Lantus) 8 unit DAILY@20 SC Last administered on 10/01/16 21: 08; Admin Dose 8 UNIT; Start 09/26/16 at 20:00 Atorvastatin Calcium (Lipitor) 20 mg QHS PO Last administered on 10/01/16 21: 04; Admin Dose 20 MG; Start 09/26/16 at 21:00 Diagnostic Test (Pha) (Accucheck) 1 ea 02 XX ; Start 09/27/16 at 02:00 Miscellaneous Information 1 ea NOTE XX ; Start 09/27/16 at 09:00 Glucose (Glutose) 15 gm Q15M PRN PO DECREASED GLUCOSE; Start 09/26/16 at 19:00 Glucose (Glutose) 22.5 gm Q15M PRN PO DECREASED GLUCOSE; Start 09/26/16 at 19: 00 Dextrose (D50w Syringe) 25 ml Q15M PRN IV DECREASED GLUCOSE; Start 09/26/16 at 19:00 Dextrose (D50w Syringe) 50 ml Q15M PRN IV DECREASED GLUCOSE; Start 09/26/16 at 19:00 Glucose (Glutose) 15 gm Q15M PRN BUCCAL DECREASED GLUCOSE; Start 09/26/16 at 19 :00 Losartan Potassium (Cozaar) 50 mg BID PO Last administered on 10/02/16 08:08; Admin Dose 50 MG; Start 09/26/16 at 21:00 Nifedipine (Procardia Xl) 60 mg BID PO Last administered on 10/02/16 08:07; Admin Dose 60 MG; Start 09/26/16 at 21:00 Pantoprazole (Protonix Tab) 40 mg BID@06,18 PO Last administered on 10/02/16 05:55; Admin Dose 40 MG; Start 09/26/16 at 18:00 Enoxaparin Sodium (Lovenox) 85 mg Q24H SC Last administered on 10/02/16 08:07 ; Admin Dose 85 MG; Start 09/27/16 at 09:00 Zolpidem Tartrate (Ambien) 5 mg HS PRN PO INSOMNIA; Start 09/26/16 at 19:00 Metronidazole (Flagyl) 500 mg Q8 PO Last administered on 10/02/16 14:13; Admin Dose 500 MG; Start 09/26/16 at 22:00 Ferrous Sulfate (Ferrous Sulfate (Ec)) 325 mg BID PO Last administered on 08:08; Admin Dose 325 MG; Start 09/26/16 at 21:00 Hydralazine HCl (Apresoline) 25 mg Q8 PO Last administered on 10/02/16 14:13; Admin Dose 25 MG; Start 09/26/16 at 22:00 Folic Acid (Folic Acid) 1 mg DAILY PO Last administered on 10/02/16 08:07; Admin Dose 1 MG; Start 09/27/16 at 09:00 Tamsulosin HCl (Flomax) 0.4 mg BID PO Last administered on 10/02/16 08:08; Admin Dose 0.4 MG; Start 09/28/16 at 21:00 Assessment/Plan Chief Complaint/Hosp Course IMPRESSION 1. Recent cerebrovascular accident. 2. Recent diagnosis of adenocarcinoma with sigmoid resection. 3. History of hypertension. 4. History of neurocysticercosis. PLAN: 1. Continue postop surgical recommendations. 2. Continue physical therapy. 3. Hematology/oncology recommendations. Family declined conventional chemotherapy 4. DVT GI prophylaxis Problems: FAHAD BARDALES MD, [facility] Oct 02, 2016 16:57
[2016-10-02 19:17] VITALS: BP 148/72; RESP 20
[2016-10-02] MEDS: ATORVASTATIN 20 MG TAB PO SCH (20:30)
[2016-10-02] MEDS: INSULIN GLARGINE [LANtus] 3 ML PEN SC SCH (20:37)
--- NOTE | 2016-10-03 01:24 | PN ---
DATE: 10/02/2016 SUBJECTIVE: Urinary retention. The patient was voiding well earlier in the day. However, later on in the afternoon his postvoid residual has increased to over 500. Therefore, he underwent straight catheterization. OBJECTIVE: VITAL SIGNS: His temperature is 98.3, pulse 89, respiration 18, blood pressure 155/73. ABDOMEN: Soft. LABORATORY DATA: His latest blood sugar 168. Urine culture is mixed gram-positive organisms, most likely contaminant. The patient did not void around 2:30 p.m. and the bladder scan showed over 500 mL and when he had a straight catheterization, 500 mL drained; however, earlier he voided about 400 and his postvoid residual was 180, and another time he voided and the postvoid residual was 150. MEDICATIONS: Tamsulosin 0.4 mg twice a day. PLAN: To continue the same medications and do straight catheterization as needed. Dictated By: SUSAN MERINO/ABDOULAYE Conf#: [id number] DID#: [id number]
[2016-10-03] MEDS: ACCUCHECK AT 2AM (Patients on SS coverage) XX SCH (02:00)
[2016-10-03] MEDS: metroNIDAZOLE 500 MG TAB PO SCH ×3 (06:27→21:18)
[2016-10-03] MEDS: PANTOPRAZOLE (EC) 40 MG TAB PO SCH ×2 (06:28→17:47)
[2016-10-03] MEDS: INSULIN ASPART [NOVOLOG] 3 ML PEN SC SCH ×7 (07:35→21:00)
[2016-10-03 08:00] VITALS: BP 151/67; RESP 18
[2016-10-03] MEDS: FOLIC ACID 1 MG TAB PO SCH (08:13)
[2016-10-03] MEDS: ASPIRIN 81 MG TAB PO SCH (08:13)
[2016-10-03] MEDS: LOSARTAN 50 MG TAB PO SCH ×2 (08:13→21:17)
[2016-10-03] MEDS: NIFEdipine (XL) 60 MG TAB PO SCH ×2 (08:13→21:17)
[2016-10-03] MEDS: FERROUS SULFATE (EC) 325 MG TAB PO SCH ×2 (08:13→21:17)
[2016-10-03] MEDS: ENOXAPARIN 100 MG/ML SYG SC SCH (08:13)
[2016-10-03] MEDS: TAMSULOSIN (SR) 0.4 MG CAP PO SCH ×2 (08:13→21:17)
--- NOTE | 2016-10-03 10:51 | CONS ---
Date/Time of Note Date/Time of Note DATE: 10/03/16 TIME: 10:51 Consult Date/Type/Reason Admit Date/Time Sep 26, 2016 at 17:15 Type of Consultation: internal medicine Subjective comfortable Objective Vital Signs Date Time Temp Pulse Resp B/P Pulse Ox O2 Delivery O2 Flow Rate FiO2 10/03/16 08:00 98.2 66 18 151/67 97 Intake and Output 10/02/16 10/02/16 10/03/16 14:59 22:59 06:59 Intake Total 720 ml Output Total 1520 ml Balance -800 ml pulm-cta mod assist ambulation Results/Medications Result Diagram: 10/01/16 0634 Results 24 hrs Laboratory Tests Test 10/02/16 11:49 10/02/16 16:55 10/02/16 20:06 10/03/16 07:40 Bedside Glucose 147 168 126 120 Medications Current Medications Aspirin (Aspirin) 81 mg DAILY PO Last administered on 10/03/16 08:13; Admin Dose 81 MG; Start 09/27/16 at 09:00 Acetaminophen (Tylenol Tab) 650 mg Q6H PRN PO PAIN LEVEL 1-3 OR FEVER Last administered on 09/29/16 13:13; Admin Dose 650 MG; Start 09/26/16 at 19:00 Magnesium Hydroxide (Milk Of Mag) 30 ml DAILY PRN PO CONSTIPATION; Start at 19:00 Bisacodyl (Dulcolax) 5 mg DAILY PRN PO CONSTIPATION; Start 09/26/16 at 19:00 Insulin Glargine (Lantus) 8 unit DAILY@20 SC Last administered on 10/02/16 20: 37; Admin Dose 8 UNIT; Start 09/26/16 at 20:00 Atorvastatin Calcium (Lipitor) 20 mg QHS PO Last administered on 10/02/16 20: 30; Admin Dose 20 MG; Start 09/26/16 at 21:00 Diagnostic Test (Pha) (Accucheck) 1 ea 02 XX ; Start 09/27/16 at 02:00 Miscellaneous Information 1 ea NOTE XX ; Start 09/27/16 at 09:00 Glucose (Glutose) 15 gm Q15M PRN PO DECREASED GLUCOSE; Start 09/26/16 at 19:00 Glucose (Glutose) 22.5 gm Q15M PRN PO DECREASED GLUCOSE; Start 09/26/16 at 19: 00 Dextrose (D50w Syringe) 25 ml Q15M PRN IV DECREASED GLUCOSE; Start 09/26/16 at 19:00 Dextrose (D50w Syringe) 50 ml Q15M PRN IV DECREASED GLUCOSE; Start 09/26/16 at 19:00 Glucose (Glutose) 15 gm Q15M PRN BUCCAL DECREASED GLUCOSE; Start 09/26/16 at 19 :00 Losartan Potassium (Cozaar) 50 mg BID PO Last administered on 10/03/16 08:13; Admin Dose 50 MG; Start 09/26/16 at 21:00 Nifedipine (Procardia Xl) 60 mg BID PO Last administered on 10/03/16 08:13; Admin Dose 60 MG; Start 09/26/16 at 21:00 Pantoprazole (Protonix Tab) 40 mg BID@06,18 PO Last administered on 10/03/16 06:28; Admin Dose 40 MG; Start 09/26/16 at 18:00 Enoxaparin Sodium (Lovenox) 85 mg Q24H SC Last administered on 10/03/16 08:13 ; Admin Dose 85 MG; Start 09/27/16 at 09:00 Zolpidem Tartrate (Ambien) 5 mg HS PRN PO INSOMNIA; Start 09/26/16 at 19:00 Metronidazole (Flagyl) 500 mg Q8 PO Last administered on 10/03/16 06:27; Admin Dose 500 MG; Start 09/26/16 at 22:00 Ferrous Sulfate (Ferrous Sulfate (Ec)) 325 mg BID PO Last administered on 08:13; Admin Dose 325 MG; Start 09/26/16 at 21:00 Hydralazine HCl (Apresoline) 25 mg Q8 PO Last administered on 10/03/16 06:27; Admin Dose 25 MG; Start 09/26/16 at 22:00 Folic Acid (Folic Acid) 1 mg DAILY PO Last administered on 10/03/16 08:13; Admin Dose 1 MG; Start 09/27/16 at 09:00 Tamsulosin HCl (Flomax) 0.4 mg BID PO Last administered on 10/03/16 08:13; Admin Dose 0.4 MG; Start 09/28/16 at 21:00 Assessment/Plan Additional Assessment/Plan Rehab- STEWARD/STEWARDESS NIGHT infarct CVA. Continue therapy program - f/b urology consult for urinary retention Adenocarcinoma of the colon, status post resection. Hypertension. Diabetes mellitus type 2. Dyslipidemia. Anemia. Status post Clostridium difficile. SHEILA MARIE MD Oct 03, 2016 10:51
--- NOTE | 2016-10-03 11:39 | CONS ---
Date/Time of Note Date/Time of Note DATE: 10/03/16 TIME: 11:38 Consult Date/Type/Reason Admit Date/Time Sep 26, 2016 at 17:15 Type of Consultation: internal medicine Subjective Patient appears comfortable this morning family at bedside Objective Vital Signs Date Time Temp Pulse Resp B/P Pulse Ox O2 Delivery O2 Flow Rate FiO2 10/03/16 08:00 98.2 66 18 151/67 97 Intake and Output 10/02/16 10/02/16 10/03/16 15:00 23:00 07:00 Intake Total 720 ml Output Total 1520 ml Balance -800 ml Exam OBJECTIVE: VITAL SIGNS: As above NECK: Supple. No JVD or lymphadenopathy. CARDIAC: S1, S2, no added sounds or murmurs. CHEST: Diminished air entry bilaterally. ABDOMEN: Soft, nontender. No guarding or rebound. EXTREMITIES: No cyanosis, clubbing, edema. NEUROLOGIC: Hemiplegia Results/Medications Result Diagram: 10/01/16 0634 Results 24 hrs Laboratory Tests Test 10/02/16 11:49 10/02/16 16:55 10/02/16 20:06 10/03/16 07:40 Bedside Glucose 147 168 126 120 Medications Current Medications Aspirin (Aspirin) 81 mg DAILY PO Last administered on 10/03/16 08:13; Admin Dose 81 MG; Start 09/27/16 at 09:00 Acetaminophen (Tylenol Tab) 650 mg Q6H PRN PO PAIN LEVEL 1-3 OR FEVER Last administered on 09/29/16 13:13; Admin Dose 650 MG; Start 09/26/16 at 19:00 Magnesium Hydroxide (Milk Of Mag) 30 ml DAILY PRN PO CONSTIPATION; Start at 19:00 Bisacodyl (Dulcolax) 5 mg DAILY PRN PO CONSTIPATION; Start 09/26/16 at 19:00 Insulin Glargine (Lantus) 8 unit DAILY@20 SC Last administered on 10/02/16 20: 37; Admin Dose 8 UNIT; Start 09/26/16 at 20:00 Atorvastatin Calcium (Lipitor) 20 mg QHS PO Last administered on 10/02/16 20: 30; Admin Dose 20 MG; Start 09/26/16 at 21:00 Diagnostic Test (Pha) (Accucheck) 1 ea 02 XX ; Start 09/27/16 at 02:00 Miscellaneous Information 1 ea NOTE XX ; Start 09/27/16 at 09:00 Glucose (Glutose) 15 gm Q15M PRN PO DECREASED GLUCOSE; Start 09/26/16 at 19:00 Glucose (Glutose) 22.5 gm Q15M PRN PO DECREASED GLUCOSE; Start 09/26/16 at 19: 00 Dextrose (D50w Syringe) 25 ml Q15M PRN IV DECREASED GLUCOSE; Start 09/26/16 at 19:00 Dextrose (D50w Syringe) 50 ml Q15M PRN IV DECREASED GLUCOSE; Start 09/26/16 at 19:00 Glucose (Glutose) 15 gm Q15M PRN BUCCAL DECREASED GLUCOSE; Start 09/26/16 at 19 :00 Losartan Potassium (Cozaar) 50 mg BID PO Last administered on 10/03/16 08:13; Admin Dose 50 MG; Start 09/26/16 at 21:00 Nifedipine (Procardia Xl) 60 mg BID PO Last administered on 10/03/16 08:; Admin Dose 60 MG; Start 09/26/16 at 21:00 Pantoprazole (Protonix Tab) 40 mg BID@06,18 PO Last administered on 10/03/16 06:28; Admin Dose 40 MG; Start 09/26/16 at 18:00 Enoxaparin Sodium (Lovenox) 85 mg Q24H SC Last administered on 10/03/16 08:13 ; Admin Dose 85 MG; Start 09/27/16 at 09:00 Zolpidem Tartrate (Ambien) 5 mg HS PRN PO INSOMNIA; Start 09/26/16 at 19:00 Metronidazole (Flagyl) 500 mg Q8 PO Last administered on 10/03/16 06:27; Admin Dose 500 MG; Start 09/26/16 at 22:00 Ferrous Sulfate (Ferrous Sulfate (Ec)) 325 mg BID PO Last administered on 08:13; Admin Dose 325 MG; Start 09/26/16 at 21:00 Hydralazine HCl (Apresoline) 25 mg Q8 PO Last administered on 10/03/16 06:27; Admin Dose 25 MG; Start 09/26/16 at 22:00 Folic Acid (Folic Acid) 1 mg DAILY PO Last administered on 10/03/16 08:13; Admin Dose 1 MG; Start 09/27/16 at 09:00 Tamsulosin HCl (Flomax) 0.4 mg BID PO Last administered on 10/03/16t 08:13; Admin Dose 0.4 MG; Start 09/28/16 at 21:00 Assessment/Plan Chief Complaint/Hosp Course IMPRESSION 1. Recent cerebrovascular accident. 2. Recent diagnosis of adenocarcinoma with sigmoid resection. 3. History of hypertension. 4. History of neurocysticercosis. PLAN: 1. Continue aspiration precautions 2. Continue physical therapy. 3. Hematology/oncology recommendations. Family declined conventional chemotherapy 4. DVT GI prophylaxis Problems: FAHAD BARDALES MD, [facility] Oct 03, 2016 11:39
[2016-10-03 13:22] VITALS: BP 124/58; PULSE 73; RESP 18
[2016-10-03 19:17] VITALS: BP 150/64; RESP 20
--- NOTE | 2016-10-03 20:48 | PN ---
DATE: 10/03/2016 SUBJECTIVE: Urinary retention. The patient is status post stroke and he has not been able to urina te. He, most of the time, is sleeping and he required intermittent catheterization. OBJECTIVE: VITAL SIGNS: Temperature today is 98.3, pulse 73, respiration 18, blood pressure 124/58. ABDOMEN: Soft. There is no mass palpable. The patient, earlier, voided 100 mL, yet his bladder scan showed 586 mL and straight cath drained 55 0. Same later on in the afternoon, he had a bladder scan showed 580 and straight cath showed 500. So we shall continue to check his postvoid residual. Also if he does not void, do a straight cathet erization on him. If he voids and has a postvoid residual of 300, will do a straight catheterizatio n. If he does not void and the bladder scan shows over 500, we will do a straight catheterization a s well. Dictated By: SUSAN CAMPO MD BB/ABDOULAYE Conf#: [id number] DID#: [id number] CC: SHEILA MARIE MD;*EndCC*
[2016-10-03] MEDS: ATORVASTATIN 20 MG TAB PO SCH (21:17)
[2016-10-03] MEDS: INSULIN GLARGINE [LANtus] 3 ML PEN SC SCH (21:23)
[2016-10-04] MEDS: ACCUCHECK AT 2AM (Patients on SS coverage) XX SCH (02:00)
[2016-10-04] MEDS: metroNIDAZOLE 500 MG TAB PO SCH ×3 (05:58→21:00)
[2016-10-04] MEDS: PANTOPRAZOLE (EC) 40 MG TAB PO SCH ×2 (05:58→17:49)
[2016-10-04] MEDS: INSULIN ASPART [NOVOLOG] 3 ML PEN SC SCH ×7 (07:35→21:00)
[2016-10-04 07:39] VITALS: BP 149/69; RESP 18
[2016-10-04] MEDS: ENOXAPARIN 100 MG/ML SYG SC SCH (07:57)
[2016-10-04] MEDS: ASPIRIN 81 MG TAB PO SCH (08:00)
[2016-10-04] MEDS: FERROUS SULFATE (EC) 325 MG TAB PO SCH ×2 (08:00→21:00)
[2016-10-04] MEDS: LOSARTAN 50 MG TAB PO SCH ×2 (08:01→21:00)
[2016-10-04] MEDS: TAMSULOSIN (SR) 0.4 MG CAP PO SCH ×2 (08:01→21:01)
[2016-10-04] MEDS: NIFEdipine (XL) 60 MG TAB PO SCH ×2 (08:01→21:00)
[2016-10-04] MEDS: FOLIC ACID 1 MG TAB PO SCH (08:01)
--- NOTE | 2016-10-04 12:22 | CONS ---
Date/Time of Note Date/Time of Note DATE: 10/04/16 TIME: 12:21 Consult Date/Type/Reason Admit Date/Time Sep 26, 2016 at 17:15 Type of Consultation: internal medicine Subjective in good spirits Objective Vital Signs Date Time Temp Pulse Resp B/P Pulse Ox O2 Delivery O2 Flow Rate FiO2 10/04/16 07:39 98.4 65 18 149/69 97 10/03/16 13:22 Room Air Intake and Output 10/03/16 10/03/16 10/04/16 14:59 22:59 06:59 Intake Total 1320 ml 240 ml 1200 ml Output Total 1500 ml 1150 ml Balance -180 ml 240 ml 50 ml pulm-cta min/mod ambulation Results/Medications Result Diagram: 10/01/16 0634 Results 24 hrs Laboratory Tests Test 10/03/16 17:04 10/03/16 21:13 10/04/16 07:39 10/04/16 12:10 Bedside Glucose 123 126 120 139 Medications Current Medications Aspirin (Aspirin) 81 mg DAILY PO Last administered on 10/04/16 08:00; Admin Dose 81 MG; Start 09/27/16 at 09:00 Acetaminophen (Tylenol Tab) 650 mg Q6H PRN PO PAIN LEVEL 1-3 OR FEVER Last administered on 09/29/16 13:13; Admin Dose 650 MG; Start 09/26/16 at 19:00 Magnesium Hydroxide (Milk Of Mag) 30 ml DAILY PRN PO CONSTIPATION; Start at 19:00 Bisacodyl (Dulcolax) 5 mg DAILY PRN PO CONSTIPATION; Start 09/26/16 at 19:00 Insulin Glargine (Lantus) 8 unit DAILY@20 SC Last administered on 10/03/16 21: 23; Admin Dose 8 UNIT; Start 09/26/16 at 20:00 Atorvastatin Calcium (Lipitor) 20 mg QHS PO Last administered on 10/03/16 21: 17; Admin Dose 20 MG; Start 09/26/16 at 21:00 Diagnostic Test (Pha) (Accucheck) 1 ea 02 XX ; Start 09/27/16 at 02:00 Miscellaneous Information 1 ea NOTE XX ; Start 09/27/16 at 09:00 Glucose (Glutose) 15 gm Q15M PRN PO DECREASED GLUCOSE; Start 09/26/16 at 19:00 Glucose (Glutose) 22.5 gm Q15M PRN PO DECREASED GLUCOSE; Start 09/26/16 at 19: 00 Dextrose (D50w Syringe) 25 ml Q15M PRN IV DECREASED GLUCOSE; Start 09/26/16 at 19:00 Dextrose (D50w Syringe) 50 ml Q15M PRN IV DECREASED GLUCOSE; Start 09/26/16 at 19:00 Glucose (Glutose) 15 gm Q15M PRN BUCCAL DECREASED GLUCOSE; Start 09/26/16 at 19 :00 Losartan Potassium (Cozaar) 50 mg BID PO Last administered on 10/04/16 08:01; Admin Dose 50 MG; Start 09/26/16 at 21:00 Nifedipine (Procardia Xl) 60 mg BID PO Last administered on 10/04/16 08:01; Admin Dose 60 MG; Start 09/26/16 at 21:00 Pantoprazole (Protonix Tab) 40 mg BID@06,18 PO Last administered on 10/04/16 05:58; Admin Dose 40 MG; Start 09/26/16 at 18:00 Enoxaparin Sodium (Lovenox) 85 mg Q24H SC Last administered on 10/04/16 07:57 ; Admin Dose 85 MG; Start 09/27/16 at 09:00 Zolpidem Tartrate (Ambien) 5 mg HS PRN PO INSOMNIA; Start 09/26/16 at 19:00 Metronidazole (Flagyl) 500 mg Q8 PO Last administered on 10/04/16 05:58; Admin Dose 500 MG; Start 09/26/16 at 22:00 Ferrous Sulfate (Ferrous Sulfate (Ec)) 325 mg BID PO Last administered on 08:00; Admin Dose 325 MG; Start 09/26/16 at 21:00 Hydralazine HCl (Apresoline) 25 mg Q8 PO Last administered on 10/04/16 05:59; Admin Dose 25 MG; Start 09/26/16 at 22:00 Folic Acid (Folic Acid) 1 mg DAILY PO Last administered on 10/04/16 08:01; Admin Dose 1 MG; Start 09/27/16 at 09:00 Tamsulosin HCl (Flomax) 0.4 mg BID PO Last administered on 10/04/16 08:01; Admin Dose 0.4 MG; Start 09/28/16 at 21:00 Assessment/Plan Additional Assessment/Plan Rehab- [employer] infarct CVA. Continue rehab therapy activities - f/b urology consult for urinary retention Adenocarcinoma of the colon, status post resection. Hypertension. Diabetes mellitus type 2. Dyslipidemia. Anemia. Status post Clostridium difficile. SHEILA MARIE MD Oct 04, 2016 12:22
[2016-10-04 13:43] VITALS: BP 130/62; PULSE 70; RESP 18
--- NOTE | 2016-10-04 14:29 | CONS ---
Date/Time of Note Date/Time of Note DATE: 10/04/16 TIME: 14:28 Consult Date/Type/Reason Admit Date/Time Sep 26, 2016 at 17:15 Type of Consultation: internal medicine Subjective Remains stable no new events Objective Vital Signs Date Time Temp Pulse Resp B/P Pulse Ox O2 Delivery O2 Flow Rate FiO2 10/04/16 13:43 70 18 130/62 97 Room Air 10/04/16 07:39 98.4 Intake and Output 10/03/16 10/03/16 10/04/16 15:00 23:00 07:00 Intake Total 1320 ml 240 ml 1200 ml Output Total 1500 ml 1150 ml Balance -180 ml 240 ml 50 ml Exam OBJECTIVE: VITAL SIGNS: As above NECK: Supple. No JVD or lymphadenopathy. CARDIAC: S1, S2, no added sounds or murmurs. CHEST: Diminished air entry bilaterally. ABDOMEN: Soft, nontender. No guarding or rebound. EXTREMITIES: No cyanosis, clubbing, edema. NEUROLOGIC: Hemiplegia Results/Medications Result Diagram: 10/01/16 0634 Results 24 hrs Laboratory Tests Test 10/03/16 17:04 10/03/16 21:13 10/04/16 07:39 10/04/16 12:10 Bedside Glucose 123 126 120 139 Medications Current Medications Aspirin (Aspirin) 81 mg DAILY PO Last administered on 10/04/16 08:00; Admin Dose 81 MG; Start 09/27/16 at 09:00 Acetaminophen (Tylenol Tab) 650 mg Q6H PRN PO PAIN LEVEL 1-3 OR FEVER Last administered on 09/29/16 13:13; Admin Dose 650 MG; Start 09/26/16 at 19:00 Magnesium Hydroxide (Milk Of Mag) 30 ml DAILY PRN PO CONSTIPATION; Start at 19:00 Bisacodyl (Dulcolax) 5 mg DAILY PRN PO CONSTIPATION; Start 09/26/16 at 19:00 Insulin Glargine (Lantus) 8 unit DAILY@20 SC Last administered on 10/03/16 21: 23; Admin Dose 8 UNIT; Start 09/26/16 at 20:00 Atorvastatin Calcium (Lipitor) 20 mg QHS PO Last administered on 10/03/16 21: 17; Admin Dose 20 MG; Start 09/26/16 at 21:00 Diagnostic Test (Pha) (Accucheck) 1 ea 02 XX ; Start 09/27/16 at 02:00 Miscellaneous Information 1 ea NOTE XX ; Start 09/27/16 at 09:00 Glucose (Glutose) 15 gm Q15M PRN PO DECREASED GLUCOSE; Start 09/26/16 at 19:00 Glucose (Glutose) 22.5 gm Q15M PRN PO DECREASED GLUCOSE; Start 09/26/16 at 19: 00 Dextrose (D50w Syringe) 25 ml Q15M PRN IV DECREASED GLUCOSE; Start 09/26/16 at 19:00 Dextrose (D50w Syringe) 50 ml Q15M PRN IV DECREASED GLUCOSE; Start 09/26/16 at 19:00 Glucose (Glutose) 15 gm Q15M PRN BUCCAL DECREASED GLUCOSE; Start 09/26/16 at 19 :00 Losartan Potassium (Cozaar) 50 mg BID PO Last administered on 10/04/16 08:01; Admin Dose 50 MG; Start 09/26/16 at 21:00 Nifedipine (Procardia Xl) 60 mg BID PO Last administered on 10/04/16 08:01; Admin Dose 60 MG; Start 09/26/16 at 21:00 Pantoprazole (Protonix Tab) 40 mg BID@06,18 PO Last administered on 10/04/16 05:58; Admin Dose 40 MG; Start 09/26/16 at 18:00 Enoxaparin Sodium (Lovenox) 85 mg Q24H SC Last administered on 10/04/16 07:57 ; Admin Dose 85 MG; Start 09/27/16 at 09:00 Zolpidem Tartrate (Ambien) 5 mg HS PRN PO INSOMNIA; Start 09/26/16 at 19:00 Metronidazole (Flagyl) 500 mg Q8 PO Last administered on 10/04/16 13:44; Admin Dose 500 MG; Start 09/26/16 at 22:00 Ferrous Sulfate (Ferrous Sulfate (Ec)) 325 mg BID PO Last administered on 08:00; Admin Dose 325 MG; Start 09/26/16 at 21:00 Hydralazine HCl (Apresoline) 25 mg Q8 PO Last administered on 10/04/16 13:44; Admin Dose 25 MG; Start 09/26/16 at 22:00 Folic Acid (Folic Acid) 1 mg DAILY PO Last administered on 10/04/16 08:01; Admin Dose 1 MG; Start 09/27/16 at 09:00 Tamsulosin HCl (Flomax) 0.4 mg BID PO Last administered on 10/04/16 08:01; Admin Dose 0.4 MG; Start 09/28/16 at 21:00 Assessment/Plan Chief Complaint/Hosp Course IMPRESSION 1. Recent cerebrovascular accident. 2. Recent diagnosis of adenocarcinoma with sigmoid resection. 3. History of hypertension. 4. History of neurocysticercosis. 5. Urinary retention PLAN: 1. Continue aspiration precautions 2. Continue physical therapy. 3. Hematology/oncology recommendations. Family declined conventional chemotherapy 4. DVT GI prophylaxis 5. Continue urology recommendations with straight catheter as needed Problems: FAHAD BARDALES MD, [facility] Oct 04, 2016 14:29
--- NOTE | 2016-10-04 17:04 | CONS ---
DATE OF ADMISSION: 09/26/2016 DATE OF CONSULTATION: 10/04/2016 TYPE OF CONSULTATION: Psychological. REFERRING PHYSICIAN: SHEILA CHENG MD. CONSULTING PSYCHOLOGIST: Taylor Vazquez, PhD. REASON FOR CONSULTATION: This consultation was requested by Dr. Bryan Cheng in order to evaluate the cognitive and emotional functioning of this patient related to his present medical condition. HISTORY OF PRESENT ILLNESS: The patient is a 66-year-old male. The patient has a history of type 2 diabetes and previous TIA. The patient was admitted on 09/11/2016 for acute CVA. Patient did have a workup and did reveal a sigmoid colon mass. 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 The patient underwent resection of the colon mass on 09/22/2016. Postope ratively, the patient had some impairments in self-care and mobility as well as with cognition accor ding to his baseline. The patient was cleared medically and transferred to the rehabilitation unit for comprehensive interdisciplinary rehabilitation care. The patient is very motivated to try and g et better and return to his previous level of functioning. The patient's was present during e consultation with the patient's permission. The patient's did some interpretation and the in terview was completed in both Upper Sorbian and Finnish. FAMILY AND SOCIAL HISTORY: The patient lives with his daughter and her 3 children and his . e patient does want to return there after discharge. MEDICATIONS: The patient is currently not on any psychotropic medications. SUBSTANCE USE: The patient reports that he does not use alcohol or other drugs. The patient report s that he used them in the past but it has been over 17 years. The patient reports he does not smok e and has been about the same amount of time since he quit smoking. The patient's corroborates this. MENTAL STATUS EXAMINATION: APPEARANCE: The patient was seen in his wheelchair. He is of average height and weight. The patie nt is right-handed. BEHAVIOR: The patient was cooperative during the consultation. The patient did attempt to answer a ll questions presented to him by the interviewer. MOOD AND AFFECT: The patient's mood appears to be slightly depressed. Affect does appear to be sli ghtly anxious. The patient's mentioned that he is depressed and sometimes cries. PERCEPTION: The patient reports no hallucinations or delusions. The patient was alert to person an d place, and situation, but not exactly to time. MEMORY AND COGNITION: The patient's memory and cognition were basically intact. He did have some d ifficulty with recent and remote events. The patient did not know what month it was, but originally thought it was 2009 rather than 2016. He was able to say the name of the hospital as "[facility] He was able to say the name of the vehicle delivery worker and the governor of the state. Overall, after all his medical problems, his cognition appears to be fairly adequate at this time. INTELLIGENCE: Intelligence appears to fall in the average range. INSIGHT: Fair. JUDGMENT: Fair. THOUGHT CONTENT: The patient is very concerned about his present medical condition. The patient do es want to return home and to his previous level of functioning. The patient reports that he was do ing better and is motivated to get better. The patient is very frustrated about his medical problem s and say he "feels weak and tired." The patient also does say that he has some confusion that he i s aware of at times. DISCUSSION: The patient can likely benefit from some cognitive/behavioral psychotherapy while he is on the unit. This psychotherapy will try to focus on his underlying level of depression and anxiet y related to his medical problems as well as try to deal with some of the cognitive issues he is fac ing. 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 Thank you very much, Dr. Bryan Cheng, for referring this individual. Please do not hesitate to ca ll if you have additional questions. Dictated By: TAYLOR VAZQUEZ PHD CINDY/ABDOULAYE Conf#: [id number] DID#: [id number]
[2016-10-04 19:17] VITALS: BP 151/72; RESP 20
[2016-10-04] MEDS: INSULIN GLARGINE [LANtus] 3 ML PEN SC SCH (20:59)
[2016-10-04] MEDS: ATORVASTATIN 20 MG TAB PO SCH (21:00)
[2016-10-05] MEDS: ACCUCHECK AT 2AM (Patients on SS coverage) XX SCH (02:00)
[2016-10-05] MEDS: metroNIDAZOLE 500 MG TAB PO SCH ×3 (05:43→21:02)
[2016-10-05] MEDS: PANTOPRAZOLE (EC) 40 MG TAB PO SCH ×2 (05:43→17:43)
[2016-10-05 07:30] VITALS: BP 133/64; RESP 18
[2016-10-05] MEDS: INSULIN ASPART [NOVOLOG] 3 ML PEN SC SCH ×7 (07:35→20:56)
[2016-10-05] MEDS: ENOXAPARIN 100 MG/ML SYG SC SCH (08:09)
[2016-10-05] MEDS: ASPIRIN 81 MG TAB PO SCH (08:10)
[2016-10-05] MEDS: NIFEdipine (XL) 60 MG TAB PO SCH ×2 (08:11→20:53)
[2016-10-05] MEDS: TAMSULOSIN (SR) 0.4 MG CAP PO SCH ×2 (08:12→20:49)
[2016-10-05] MEDS: LOSARTAN 50 MG TAB PO SCH ×2 (08:12→20:54)
[2016-10-05] MEDS: FERROUS SULFATE (EC) 325 MG TAB PO SCH ×2 (08:12→20:49)
[2016-10-05] MEDS: FOLIC ACID 1 MG TAB PO SCH (08:12)
--- NOTE | 2016-10-05 09:17 | PN ---
DATE: 10/05/2016 SUBJECTIVE: This is postoperative day #13. The patient is recovering in the rehab [facility]. I have been asked to see the patient because of some serous drainage through his incision. PHYSICAL EXAMINATION: The incision is clean. There is mild serous drainage. This is expected to resolve on its own. PLAN: Dry dressing changes and change dressing as necessary. Dictated By: MECCA DE LEON/ABDOULAYE Conf#: [id number] DID#: [id number]
--- NOTE | 2016-10-05 10:40 | CONS ---
Date/Time of Note Date/Time of Note DATE: 10/05/16 TIME: 10:40 Consult Date/Type/Reason Admit Date/Time Sep 26, 2016 at 17:15 Type of Consultation: internal medicine Subjective Sitting up in bed in no acute distress Status post dressing change Objective Vital Signs Date Time Temp Pulse Resp B/P Pulse Ox O2 Delivery O2 Flow Rate FiO2 10/04/16 19:17 98.8 71 20 151/72 97 10/04/16 13:43 Room Air Intake and Output 10/04/16 10/04/16 10/05/16 15:00 23:00 07:00 Intake Total 720 ml 360 ml 1500 ml Output Total 901 ml 1450 ml Balance -181 ml 360 ml 50 ml Exam OBJECTIVE: VITAL SIGNS: As above NECK: Supple. No JVD or lymphadenopathy. CARDIAC: S1, S2, no added sounds or murmurs. CHEST: Diminished air entry bilaterally. ABDOMEN: Soft, nontender. No guarding or rebound. EXTREMITIES: No cyanosis, clubbing, edema. NEUROLOGIC: Hemiplegia Results/Medications Result Diagram: 10/01/16 0634 Results 24 hrs Laboratory Tests Test 10/04/16 12:10 10/04/16 17:25 10/04/16 20:03 10/05/16 07:40 Bedside Glucose 139 99 112 108 Medications Current Medications Aspirin (Aspirin) 81 mg DAILY PO Last administered on 10/05/16 08:10; Admin Dose 81 MG; Start 09/27/16 at 09:00 Acetaminophen (Tylenol Tab) 650 mg Q6H PRN PO PAIN LEVEL 1-3 OR FEVER Last administered on 09/29/16 13:13; Admin Dose 650 MG; Start 09/26/16 at 19:00 Magnesium Hydroxide (Milk Of Mag) 30 ml DAILY PRN PO CONSTIPATION; Start at 19:00 Bisacodyl (Dulcolax) 5 mg DAILY PRN PO CONSTIPATION; Start 09/26/16 at 19:00 Insulin Glargine (Lantus) 8 unit DAILY@20 SC Last administered on 10/04/16 20: 59; Admin Dose 8 UNIT; Start 09/26/16 at 20:00 Atorvastatin Calcium (Lipitor) 20 mg QHS PO Last administered on 10/04/16 21: 00; Admin Dose 20 MG; Start 09/26/16 at 21:00 Diagnostic Test (Pha) (Accucheck) 1 ea 02 XX ; Start 09/27/16 at 02:00 Miscellaneous Information 1 ea NOTE XX ; Start 09/27/16 at 09:00 Glucose (Glutose) 15 gm Q15M PRN PO DECREASED GLUCOSE; Start 09/26/16 at 19:00 Glucose (Glutose) 22.5 gm Q15M PRN PO DECREASED GLUCOSE; Start 09/26/16 at 19: 00 Dextrose (D50w Syringe) 25 ml Q15M PRN IV DECREASED GLUCOSE; Start 09/26/16 at 19:00 Dextrose (D50w Syringe) 50 ml Q15M PRN IV DECREASED GLUCOSE; Start 09/26/16 at 19:00 Glucose (Glutose) 15 gm Q15M PRN BUCCAL DECREASED GLUCOSE; Start 09/26/16 at 19 :00 Losartan Potassium (Cozaar) 50 mg BID PO Last administered on 10/05/16 08:12; Admin Dose 50 MG; Start 09/26/16 at 21:00 Nifedipine (Procardia Xl) 60 mg BID PO Last administered on 10/05/16 08:11; Admin Dose 60 MG; Start 09/26/16 at 21:00 Pantoprazole (Protonix Tab) 40 mg BID@06,18 PO Last administered on 10/05/16 05:43; Admin Dose 40 MG; Start 09/26/16 at 18:00 Enoxaparin Sodium (Lovenox) 85 mg Q24H SC Last administered on 10/05/16 08:09 ; Admin Dose 85 MG; Start 09/27/16 at 09:00 Zolpidem Tartrate (Ambien) 5 mg HS PRN PO INSOMNIA; Start 09/26/16 at 19:00 Metronidazole (Flagyl) 500 mg Q8 PO Last administered on 10/05/16 05:43; Admin Dose 500 MG; Start 09/26/16 at 22:00 Ferrous Sulfate (Ferrous Sulfate (Ec)) 325 mg BID PO Last administered on 08:12; Admin Dose 325 MG; Start 09/26/16 at 21:00 Hydralazine HCl (Apresoline) 25 mg Q8 PO Last administered on 10/05/16 05:43; Admin Dose 25 MG; Start 09/26/16 at 22:00 Folic Acid (Folic Acid) 1 mg DAILY PO Last administered on 10/05/16 08:12; Admin Dose 1 MG; Start 09/27/16 at 09:00 Tamsulosin HCl (Flomax) 0.4 mg BID PO Last administered on 10/05/16 08:12; Admin Dose 0.4 MG; Start 09/28/16 at 21:00 Assessment/Plan Chief Complaint/Hosp Course IMPRESSION 1. Recent cerebrovascular accident. 2. Recent diagnosis of adenocarcinoma with sigmoid resection. 3. History of hypertension. 4. History of neurocysticercosis. 5. Urinary retention PLAN: 1. Continue aspiration precautions 2. Continue physical therapy. 3. Hematology/oncology recommendations. Family declined conventional chemotherapy 4. DVT GI prophylaxis 5. Continue urology recommendations with straight catheter as needed Problems: FAHAD BARDALES MD, [facility] Oct 05, 2016 10:40
--- NOTE | 2016-10-05 11:49 | CONS ---
Date/Time of Note Date/Time of Note DATE: 10/05/16 TIME: 11:48 Consult Date/Type/Reason Admit Date/Time Sep 26, 2016 at 17:15 Type of Consultation: internal medicine Subjective patient motivated, family supportive Objective pulm-cta min assist transfer min ambulation Vital Signs Date Time Temp Pulse Resp B/P Pulse Ox O2 Delivery O2 Flow Rate FiO2 10/04/16 19:17 98.8 71 20 151/72 97 10/04/16 13:43 Room Air Intake and Output 10/04/16 10/04/16 10/05/16 15:00 23:00 07:00 Intake Total 720 ml 360 ml 1500 ml Output Total 901 ml 1450 ml Balance -181 ml 360 ml 50 ml Results/Medications Result Diagram: 10/01/16 0634 Results 24 hrs Laboratory Tests Test 10/04/16 12:10 10/04/16 17:25 10/04/16 20:03 10/05/16 07:40 Bedside Glucose 139 99 112 108 Medications Current Medications Aspirin (Aspirin) 81 mg DAILY PO Last administered on 10/05/16 08:10; Admin Dose 81 MG; Start 09/27/16 at 09:00 Acetaminophen (Tylenol Tab) 650 mg Q6H PRN PO PAIN LEVEL 1-3 OR FEVER Last administered on 09/29/16 13:13; Admin Dose 650 MG; Start 09/26/16 at 19:00 Magnesium Hydroxide (Milk Of Mag) 30 ml DAILY PRN PO CONSTIPATION; Start at 19:00 Bisacodyl (Dulcolax) 5 mg DAILY PRN PO CONSTIPATION; Start 09/26/16 at 19:00 Insulin Glargine (Lantus) 8 unit DAILY@20 SC Last administered on 10/04/16 20: 59; Admin Dose 8 UNIT; Start 09/26/16 at 20:00 Atorvastatin Calcium (Lipitor) 20 mg QHS PO Last administered on 10/04/16 21: 00; Admin Dose 20 MG; Start 09/26/16 at 21:00 Diagnostic Test (Pha) (Accucheck) 1 ea 02 XX ; Start 09/27/16 at 02:00 Miscellaneous Information 1 ea NOTE XX ; Start 09/27/16 at 09:00 Glucose (Glutose) 15 gm Q15M PRN PO DECREASED GLUCOSE; Start 09/26/16 at 19:00 Glucose (Glutose) 22.5 gm Q15M PRN PO DECREASED GLUCOSE; Start 09/26/16 at 19: 00 Dextrose (D50w Syringe) 25 ml Q15M PRN IV DECREASED GLUCOSE; Start 09/26/16 at 19:00 Dextrose (D50w Syringe) 50 ml Q15M PRN IV DECREASED GLUCOSE; Start 09/26/16 at 19:00 Glucose (Glutose) 15 gm Q15M PRN BUCCAL DECREASED GLUCOSE; Start 09/26/16 at 19 :00 Losartan Potassium (Cozaar) 50 mg BID PO Last administered on 10/05/16 08:12; Admin Dose 50 MG; Start 09/26/16 at 21:00 Nifedipine (Procardia Xl) 60 mg BID PO Last administered on 10/05/16 08:11; Admin Dose 60 MG; Start 09/26/16 at 21:00 Pantoprazole (Protonix Tab) 40 mg BID@,18 PO Last administered on 10/05/16 05:43; Admin Dose 40 MG; Start 09/26/16 at 18:00 Enoxaparin Sodium (Lovenox) 85 mg Q24H SC Last administered on 10/05/16 08:09 ; Admin Dose 85 MG; Start 09/27/16 at 09:00 Zolpidem Tartrate (Ambien) 5 mg HS PRN PO INSOMNIA; Start 09/26/16 at 19:00 Metronidazole (Flagyl) 500 mg Q8 PO Last administered on 10/05/16 05:43; Admin Dose 500 MG; Start 09/26/16 at 22:00 Ferrous Sulfate (Ferrous Sulfate (Ec)) 325 mg BID PO Last administered on 08:12; Admin Dose 325 MG; Start 09/26/16 at 21:00 Hydralazine HCl (Apresoline) 25 mg Q8 PO Last administered on 10/05/16 05:43; Admin Dose 25 MG; Start 09/26/16 at 22:00 Folic Acid (Folic Acid) 1 mg DAILY PO Last administered on 10/05/16 08:12; Admin Dose 1 MG; Start 09/27/16 at 09:00 Tamsulosin HCl (Flomax) 0.4 mg BID PO Last administered on 10/05/16 08:12; Admin Dose 0.4 MG; Start 09/28/16 at 21:00 Assessment/Plan Additional Assessment/Plan Rehab- [employer]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 Continue rehab program. Family training ongoing - f/b urology consult for urinary retention Adenocarcinoma of the colon, status post resection. Hypertension. Diabetes mellitus type 2-stable Dyslipidemia. Anemia. SHEILA MARIE MD Oct 05, 2016 11:49
--- NOTE | 2016-10-05 18:04 | PN ---
DATE: 10/05/2016 SUBJECTIVE: Urinary retention. The patient is sleeping most of the time, and he has not voided exc ept once in the past 24 hours, and he voided about 100 mL of urine. OBJECTIVE: VITAL SIGNS: His temperature is 97.9, pulse is 75, respirations 18, blood pressure 133/64. ABDOMEN: Soft. The blood sugar is 149. The patient was catheterized 3 times. One time he had a postvoid residual of 450, that's last night . Then this morning when he voided 100 mL, postvoid residual was over 500, and he was catheterized for 550 mL, and later on also, he was catheterized another time for 400 mL. IMPRESSION: Urinary retention, most likely neurogenic bladder secondary to his brain problems, and he did have a cerebrovascular accident. He also does have a large prostate, and he is bedridden and sleeping most of the time. RECOMMENDATION: Continue to check his postvoid residual, do straight catheterization on him for a P VR of 300 or more, and if he does not void, if the bladder scan shows a volume of 500 or more to als o do the straight cath and also continue him on the tamsulosin with the hope that as his neurologica l condition improves, then he will be able to urinate on his own. Dictated By: SUSAN MERINO/ABDOULAYE Conf#: [id number] DID#: [id number]
[2016-10-05] MEDS: ATORVASTATIN 20 MG TAB PO SCH (20:48)
[2016-10-05 20:50] VITALS: BP 158/69; RESP 16
[2016-10-05] MEDS: INSULIN GLARGINE [LANtus] 3 ML PEN SC SCH (20:51)
[2016-10-06] MEDS: ACCUCHECK AT 2AM (Patients on SS coverage) XX SCH (02:00)
[2016-10-06] MEDS: PANTOPRAZOLE (EC) 40 MG TAB PO SCH ×2 (06:31→17:39)
[2016-10-06] MEDS: metroNIDAZOLE 500 MG TAB PO SCH ×3 (06:31→21:14)
[2016-10-06 07:30] VITALS: BP 132/63; RESP 18
[2016-10-06] MEDS: INSULIN ASPART [NOVOLOG] 3 ML PEN SC SCH ×7 (07:35→21:00)
[2016-10-06] MEDS: ASPIRIN 81 MG TAB PO SCH (08:14)
[2016-10-06] MEDS: TAMSULOSIN (SR) 0.4 MG CAP PO SCH ×2 (08:15→21:11)
[2016-10-06] MEDS: LOSARTAN 50 MG TAB PO SCH ×2 (08:15→21:11)
[2016-10-06] MEDS: NIFEdipine (XL) 60 MG TAB PO SCH ×2 (08:15→21:10)
[2016-10-06] MEDS: FOLIC ACID 1 MG TAB PO SCH (08:15)
[2016-10-06] MEDS: FERROUS SULFATE (EC) 325 MG TAB PO SCH ×2 (08:15→21:11)
[2016-10-06] MEDS: ENOXAPARIN 100 MG/ML SYG SC SCH (08:16)
--- NOTE | 2016-10-06 11:50 | CONS ---
Date/Time of Note Date/Time of Note DATE: 10/06/16 TIME: 11:49 Consult Date/Type/Reason Admit Date/Time Sep 26, 2016 at 17:15 Type of Consultation: internal medicine Subjective Patient comfortable, good progress Objective pulm-cta abd-soft cga ambulation Vital Signs Date Time Temp Pulse Resp B/P Pulse Ox O2 Delivery O2 Flow Rate FiO2 10/06/16 07:30 97.4 68 18 132/63 96 10/04/16 13:43 Room Air Intake and Output 10/05/16 10/05/16 10/06/16 15:00 23:00 07:00 Intake Total 420 ml 1150 ml Output Total 200 ml 2000 ml Balance 220 ml -850 ml Results/Medications Results 24 hrs Laboratory Tests Test 10/05/16 12:04 10/05/16 17:19 10/05/16 20:49 10/06/16 07:24 Bedside Glucose 149 108 128 102 Medications Current Medications Aspirin (Aspirin) 81 mg DAILY PO Last administered on 10/06/16 08:14; Admin Dose 81 MG; Start 09/27/16 at 09:00 Acetaminophen (Tylenol Tab) 650 mg Q6H PRN PO PAIN LEVEL 1-3 OR FEVER Last administered on 09/29/16 13:13; Admin Dose 650 MG; Start 09/26/16 at 19:00 Magnesium Hydroxide (Milk Of Mag) 30 ml DAILY PRN PO CONSTIPATION; Start at 19:00 Bisacodyl (Dulcolax) 5 mg DAILY PRN PO CONSTIPATION; Start 09/26/16 at 19:00 Insulin Glargine (Lantus) 8 unit DAILY@20 SC Last administered on 10/05/16 20: 51; Admin Dose 8 UNIT; Start 09/26/16 at 20:00 Atorvastatin Calcium (Lipitor) 20 mg QHS PO Last administered on 10/05/16 20: 48; Admin Dose 20 MG; Start 09/26/16 at 21:00 Diagnostic Test (Pha) (Accucheck) 1 ea 02 XX ; Start 09/27/16 at 02:00 Miscellaneous Information 1 ea NOTE XX ; Start 09/27/16 at 09:00 Glucose (Glutose) 15 gm Q15M PRN PO DECREASED GLUCOSE; Start 09/26/16 at 19:00 Glucose (Glutose) 22.5 gm Q15M PRN PO DECREASED GLUCOSE; Start 09/26/16 at 19: 00 Dextrose (D50w Syringe) 25 ml Q15M PRN IV DECREASED GLUCOSE; Start 09/26/16 at 19:00 Dextrose (D50w Syringe) 50 ml Q15M PRN IV DECREASED GLUCOSE; Start 09/26/16 at 19:00 Glucose (Glutose) 15 gm Q15M PRN BUCCAL DECREASED GLUCOSE; Start 09/26/16 at 19 :00 Losartan Potassium (Cozaar) 50 mg BID PO Last administered on 10/06/16 08:15; Admin Dose 50 MG; Start 09/26/16 at 21:00 Nifedipine (Procardia Xl) 60 mg BID PO Last administered on 10/06/16 08:15; Admin Dose 60 MG; Start 09/26/16 at 21:00 Pantoprazole (Protonix Tab) 40 mg BID@,18 PO Last administered on 10/06/16 06:31; Admin Dose 40 MG; Start 09/26/16 at 18:00 Enoxaparin Sodium (Lovenox) 85 mg Q24H SC Last administered on 10/06/16 08:16 ; Admin Dose 85 MG; Start 09/27/16 at 09:00 Zolpidem Tartrate (Ambien) 5 mg HS PRN PO INSOMNIA; Start 09/26/16 at 19:00 Metronidazole (Flagyl) 500 mg Q8 PO Last administered on 10/06/16 06:31; Admin Dose 500 MG; Start 09/26/16 at 22:00 Ferrous Sulfate (Ferrous Sulfate (Ec)) 325 mg BID PO Last administered on 08:15; Admin Dose 325 MG; Start 09/26/16 at 21:00 Hydralazine HCl (Apresoline) 25 mg Q8 PO Last administered on 10/06/16 06:30; Admin Dose 25 MG; Start 09/26/16 at 22:00 Folic Acid (Folic Acid) 1 mg DAILY PO Last administered on 10/06/16 08:15; Admin Dose 1 MG; Start 09/27/16 at 09:00 Tamsulosin HCl (Flomax) 0.4 mg BID PO Last administered on 10/06/16 08:15; Admin Dose 0.4 MG; Start 09/28/16 at 21:00 Assessment/Plan Additional Assessment/Plan 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 Continue rehab treatment plan and family training - f/b urology for urinary retention Adenocarcinoma of the colon, status post resection. Hypertension. Diabetes mellitus type 2-stable Dyslipidemia. Anemia. SHEILA MARIE MD Oct 06, 2016 11:50
--- NOTE | 2016-10-06 13:59 | CONS ---
Date/Time of Note Date/Time of Note DATE: 10/06/16 TIME: 13:59 Consult Date/Type/Reason Admit Date/Time Sep 26, 2016 at 17:15 Type of Consultation: internal medicine Subjective Patient remains comfortable continues physical therapy Objective Vital Signs Date Time Temp Pulse Resp B/P Pulse Ox O2 Delivery O2 Flow Rate FiO2 10/06/16 07:30 97.4 68 18 132/63 96 10/04/16 13:43 Room Air Intake and Output 10/05/16 10/05/16 10/06/16 15:00 23:00 07:00 Intake Total 420 ml 1150 ml Output Total 200 ml 2000 ml Balance 220 ml -850 ml Exam OBJECTIVE: VITAL SIGNS: As above NECK: Supple. No JVD or lymphadenopathy. CARDIAC: S1, S2, no added sounds or murmurs. CHEST: Diminished air entry bilaterally. ABDOMEN: Soft, nontender. No guarding or rebound. EXTREMITIES: No cyanosis, clubbing, edema. NEUROLOGIC: Hemiplegia Results/Medications Results 24 hrs Laboratory Tests Test 10/05/16 17:19 10/05/16 20:49 10/06/16 07:24 10/06/16 12:03 Bedside Glucose 108 128 102 129 Medications Current Medications Aspirin (Aspirin) 81 mg DAILY PO Last administered on 10/06/16 08:14; Admin Dose 81 MG; Start 09/27/16 at 09:00 Acetaminophen (Tylenol Tab) 650 mg Q6H PRN PO PAIN LEVEL 1-3 OR FEVER Last administered on 09/29/16 13:13; Admin Dose 650 MG; Start 09/26/16 at 19:00 Magnesium Hydroxide (Milk Of Mag) 30 ml DAILY PRN PO CONSTIPATION; Start at 19:00 Bisacodyl (Dulcolax) 5 mg DAILY PRN PO CONSTIPATION; Start 09/26/16 at 19:00 Insulin Glargine (Lantus) 8 unit DAILY@20 SC Last administered on 10/05/16 20: 51; Admin Dose 8 UNIT; Start 09/26/16 at 20:00 Atorvastatin Calcium (Lipitor) 20 mg QHS PO Last administered on 10/05/16 20: 48; Admin Dose 20 MG; Start 09/26/16 at 21:00 Diagnostic Test (Pha) (Accucheck) 1 ea 02 XX ; Start 09/27/16 at 02:00 Miscellaneous Information 1 ea NOTE XX ; Start 09/27/16 at 09:00 Glucose (Glutose) 15 gm Q15M PRN PO DECREASED GLUCOSE; Start 09/26/16 at 19:00 Glucose (Glutose) 22.5 gm Q15M PRN PO DECREASED GLUCOSE; Start 09/26/16 at 19: 00 Dextrose (D50w Syringe) 25 ml Q15M PRN IV DECREASED GLUCOSE; Start 09/26/16 at 19:00 Dextrose (D50w Syringe) 50 ml Q15M PRN IV DECREASED GLUCOSE; Start 09/26/16 at 19:00 Glucose (Glutose) 15 gm Q15M PRN BUCCAL DECREASED GLUCOSE; Start 09/26/16 at 19 :00 Losartan Potassium (Cozaar) 50 mg BID PO Last administered on 10/06/16 08:15; Admin Dose 50 MG; Start 09/26/16 at 21:00 Nifedipine (Procardia Xl) 60 mg BID PO Last administered on 10/06/16 08:15; Admin Dose 60 MG; Start 09/26/16 at 21:00 Pantoprazole (Protonix Tab) 40 mg BID@06,18 PO Last administered on 10/06/16 06:31; Admin Dose 40 MG; Start 09/26/16 at 18:00 Enoxaparin Sodium (Lovenox) 85 mg Q24H SC Last administered on 10/06/16 08:16 ; Admin Dose 85 MG; Start 09/27/16 at 09:00 Zolpidem Tartrate (Ambien) 5 mg HS PRN PO INSOMNIA; Start 09/26/16 at 19:00 Metronidazole (Flagyl) 500 mg Q8 PO Last administered on 10/06/16 13:30; Admin Dose 500 MG; Start 09/26/16 at 22:00 Ferrous Sulfate (Ferrous Sulfate (Ec)) 325 mg BID PO Last administered on 08:15; Admin Dose 325 MG; Start 09/26/16 at 21:00 Hydralazine HCl (Apresoline) 25 mg Q8 PO Last administered on 10/06/16 13:31; Admin Dose 25 MG; Start 09/26/16 at 22:00 Folic Acid (Folic Acid) 1 mg DAILY PO Last administered on 10/06/16 08:15; Admin Dose 1 MG; Start 09/27/16 at 09:00 Tamsulosin HCl (Flomax) 0.4 mg BID PO Last administered on 10/06/16t 08:15; Admin Dose 0.4 MG; Start 09/28/16 at 21:00 Assessment/Plan Chief Complaint/Hosp Course IMPRESSION 1. Recent cerebrovascular accident. 2. Recent diagnosis of adenocarcinoma with sigmoid resection. 3. History of hypertension. 4. History of neurocysticercosis. 5. Urinary retention PLAN: 1. Continue aspiration precautions 2. Continue physical therapy. 3. Hematology/oncology recommendations. Family declined conventional chemotherapy 4. DVT GI prophylaxis 5. Continue urology recommendations with straight catheter as needed Problems: FAHAD BARDALES MD, [facility] Oct 06, 2016 13:59
[2016-10-06 20:24] VITALS: BP 127/63; RESP 18
[2016-10-06] MEDS: ATORVASTATIN 20 MG TAB PO SCH (21:11)
[2016-10-06] MEDS: INSULIN GLARGINE [LANtus] 3 ML PEN SC SCH (21:12)
[2016-10-07] MEDS: ACCUCHECK AT 2AM (Patients on SS coverage) XX SCH (02:00)
[2016-10-07] MEDS: metroNIDAZOLE 500 MG TAB PO SCH ×3 (06:47→22:06)
[2016-10-07] MEDS: PANTOPRAZOLE (EC) 40 MG TAB PO SCH ×2 (06:47→17:38)
[2016-10-07] MEDS: INSULIN ASPART [NOVOLOG] 3 ML PEN SC SCH ×7 (07:35→21:00)
--- NOTE | 2016-10-07 07:48 | PN ---
DATE: 10/06/2016 SUBJECTIVE: Urinary retention. The patient is sleeping most of the time and he has not been able t o void and empty his bladder enough. Last night he did void 300 mL and his postvoid residual was 20 0 mL so no catheterization was done. However, today he voided only 100 mL but his postvoid residual was 665 and when he was catheterized 525 mL drained. OBJECTIVE: VITAL SIGNS: Temperature 98.3, pulse is 65, respiration 18, blood pressure 127/63. ABDOMEN: Soft. LABORATORY DATA: Blood sugar showed 151 sugar level. IMPRESSION: Urinary retention secondary to his neurological problems. PLAN: To continue to do in and out cath on him every 6 hours or whenever the bladder volume goes be yond 500 mL. Dictated By: SUSAN MERINO/ABDOULAYE Conf#: [id number] DID#: [id number]
[2016-10-07] MEDS: ENOXAPARIN 100 MG/ML SYG SC SCH (08:10)
[2016-10-07] MEDS: TAMSULOSIN (SR) 0.4 MG CAP PO SCH ×2 (08:11→21:03)
[2016-10-07] MEDS: ASPIRIN 81 MG TAB PO SCH (08:11)
[2016-10-07] MEDS: FOLIC ACID 1 MG TAB PO SCH (08:11)
[2016-10-07] MEDS: FERROUS SULFATE (EC) 325 MG TAB PO SCH ×2 (08:11→21:03)
[2016-10-07] MEDS: NIFEdipine (XL) 60 MG TAB PO SCH ×2 (08:11→21:04)
[2016-10-07] MEDS: LOSARTAN 50 MG TAB PO SCH ×2 (08:13→21:04)
--- NOTE | 2016-10-07 08:23 | CONS ---
Date/Time of Note Date/Time of Note DATE: 10/07/16 TIME: 08:23 Consult Date/Type/Reason Admit Date/Time Sep 26, 2016 at 17:15 Type of Consultation: internal medicine Subjective In good spirits Objective pulm-cta abd-sl drainage cga ambulation 150 feet Vital Signs Date Time Temp Pulse Resp B/P Pulse Ox O2 Delivery O2 Flow Rate FiO2 10/06/16 20:24 98.3 65 18 127/63 96 10/04/16 13:43 Room Air Intake and Output 10/06/16 10/06/16 10/07/16 15:00 23:00 07:00 Intake Total 920 ml 300 ml Output Total 980 ml 850 ml Balance -60 ml -550 ml Results/Medications Results 24 hrs Laboratory Tests Test 10/06/16 12:03 10/06/16 17:03 10/06/16 20:49 10/07/16 07:36 Bedside Glucose 129 117 151 95 Medications Current Medications Aspirin (Aspirin) 81 mg DAILY PO Last administered on 10/07/16 08:11; Admin Dose 81 MG; Start 09/27/16 at 09:00 Acetaminophen (Tylenol Tab) 650 mg Q6H PRN PO PAIN LEVEL 1-3 OR FEVER Last administered on 09/29/16 13:13; Admin Dose 650 MG; Start 09/26/16 at 19:00 Magnesium Hydroxide (Milk Of Mag) 30 ml DAILY PRN PO CONSTIPATION; Start at 19:00 Bisacodyl (Dulcolax) 5 mg DAILY PRN PO CONSTIPATION; Start 09/26/16 at 19:00 Insulin Glargine (Lantus) 8 unit DAILY@20 SC Last administered on 10/06/16 21: 12; Admin Dose 8 UNIT; Start 09/26/16 at 20:00 Atorvastatin Calcium (Lipitor) 20 mg QHS PO Last administered on 10/06/16 21: 11; Admin Dose 20 MG; Start 09/26/16 at 21:00 Diagnostic Test (Pha) (Accucheck) 1 ea 02 XX ; Start 09/27/16 at 02:00 Miscellaneous Information 1 ea NOTE XX ; Start 09/27/16 at 09:00 Glucose (Glutose) 15 gm Q15M PRN PO DECREASED GLUCOSE; Start 09/26/16 at 19:00 Glucose (Glutose) 22.5 gm Q15M PRN PO DECREASED GLUCOSE; Start 09/26/16 at 19: 00 Dextrose (D50w Syringe) 25 ml Q15M PRN IV DECREASED GLUCOSE; Start 09/26/16 at 19:00 Dextrose (D50w Syringe) 50 ml Q15M PRN IV DECREASED GLUCOSE; Start 09/26/16 at 19:00 Glucose (Glutose) 15 gm Q15M PRN BUCCAL DECREASED GLUCOSE; Start 09/26/16 at 19 :00 Losartan Potassium (Cozaar) 50 mg BID PO Last administered on 10/07/16 08:13; Admin Dose 50 MG; Start 09/26/16 at 21:00 Nifedipine (Procardia Xl) 60 mg BID PO Last administered on 10/07/16 08:11; Admin Dose 60 MG; Start 09/26/16 at 21:00 Pantoprazole (Protonix Tab) 40 mg BID@,18 PO Last administered on 10/07/16 06 :47; Admin Dose 40 MG; Start 09/26/16 at 18:00 Enoxaparin Sodium (Lovenox) 85 mg Q24H SC Last administered on 10/07/16 08:10; Admin Dose 85 MG; Start 09/27/16 at 09:00 Zolpidem Tartrate (Ambien) 5 mg HS PRN PO INSOMNIA; Start 09/26/16 at 19:00 Metronidazole (Flagyl) 500 mg Q8 PO Last administered on 10/07/16 06:47; Admin Dose 500 MG; Start 09/26/16 at 22:00 Ferrous Sulfate (Ferrous Sulfate (Ec)) 325 mg BID PO Last administered on 08:11; Admin Dose 325 MG; Start 09/26/16 at 21:00 Hydralazine HCl (Apresoline) 25 mg Q8 PO Last administered on 10/07/16 06:47; Admin Dose 25 MG; Start 09/26/16 at 22:00 Folic Acid (Folic Acid) 1 mg DAILY PO Last administered on 10/07/16 08:11; Admin Dose 1 MG; Start 09/27/16 at 09:00 Tamsulosin HCl (Flomax) 0.4 mg BID PO Last administered on 10/07/16 08:11; Admin Dose 0.4 MG; Start 09/28/16 at 21:00 Assessment/Plan Additional Assessment/Plan 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
[2016-10-07 08:40] VITALS: BP 146/73; RESP 15
--- NOTE | 2016-10-07 16:55 | CONS ---
Date/Time of Note Date/Time of Note DATE: 10/07/16 TIME: 16:54 Consult Date/Type/Reason Admit Date/Time Sep 26, 2016 at 17:15 Initial Consult Date Type of Consultation: Pulm Subjective No events overnight Objective Vital Signs Date Time Temp Pulse Resp B/P Pulse Ox O2 Delivery O2 Flow Rate FiO2 10/07/16 08:40 98.1 78 15 146/73 98 10/04/16 13:43 Room Air Intake and Output 10/06/16 10/06/16 10/07/16 15:00 23:00 07:00 Intake Total 920 ml 300 ml Output Total 980 ml 850 ml Balance -60 ml -550 ml Exam NECK: Supple. No JVD or lymphadenopathy. CARDIAC: S1, S2, no added sounds or murmurs. CHEST: Diminished air entry bilaterally. ABDOMEN: Soft, nontender. No guarding or rebound. EXTREMITIES: No cyanosis, clubbing, edema. Results/Medications Results 24 hrs Laboratory Tests Test 10/06/16 17:03 10/06/16 20:49 10/07/16 07:36 10/07/16 12:09 Bedside Glucose 117 151 95 109 Test 10/07/16 16:35 Bedside Glucose 177 Medications Current Medications Aspirin (Aspirin) 81 mg DAILY PO Last administered on 10/07/16 08:11; Admin Dose 81 MG; Start 09/27/16 at 09:00 Acetaminophen (Tylenol Tab) 650 mg Q6H PRN PO PAIN LEVEL 1-3 OR FEVER Last administered on 09/29/16 13:13; Admin Dose 650 MG; Start 09/26/16 at 19:00 Magnesium Hydroxide (Milk Of Mag) 30 ml DAILY PRN PO CONSTIPATION; Start at 19:00 Bisacodyl (Dulcolax) 5 mg DAILY PRN PO CONSTIPATION; Start 09/26/16 at 19:00 Insulin Glargine (Lantus) 8 unit DAILY@20 SC Last administered on 10/06/16 21: 12; Admin Dose 8 UNIT; Start 09/26/16 at 20:00 Atorvastatin Calcium (Lipitor) 20 mg QHS PO Last administered on 10/06/16 21: 11; Admin Dose 20 MG; Start 09/26/16 at 21:00 Diagnostic Test (Pha) (Accucheck) 1 ea 02 XX ; Start 09/27/16 at 02:00 Miscellaneous Information 1 ea NOTE XX ; Start 09/27/16 at 09:00 Glucose (Glutose) 15 gm Q15M PRN PO DECREASED GLUCOSE; Start 09/26/16 at 19:00 Glucose (Glutose) 22.5 gm Q15M PRN PO DECREASED GLUCOSE; Start 09/26/16 at 19: 00 Dextrose (D50w Syringe) 25 ml Q15M PRN IV DECREASED GLUCOSE; Start 09/26/16 at 19:00 Dextrose (D50w Syringe) 50 ml Q15M PRN IV DECREASED GLUCOSE; Start 09/26/16 at 19:00 Glucose (Glutose) 15 gm Q15M PRN BUCCAL DECREASED GLUCOSE; Start 09/26/16 at 19 :00 Losartan Potassium (Cozaar) 50 mg BID PO Last administered on 10/07/16 08:13; Admin Dose 50 MG; Start 09/26/16 at 21:00 Nifedipine (Procardia Xl) 60 mg BID PO Last administered on 10/07/16 08:11; Admin Dose 60 MG; Start 09/26/16 at 21:00 Pantoprazole (Protonix Tab) 40 mg BID@,18 PO Last administered on 10/07/16 06 :47; Admin Dose 40 MG; Start 09/26/16 at 18:00 Enoxaparin Sodium (Lovenox) 85 mg Q24H SC Last administered on 10/07/16 08:10; Admin Dose 85 MG; Start 09/27/16 at 09:00 Zolpidem Tartrate (Ambien) 5 mg HS PRN PO INSOMNIA; Start 09/26/16 at 19:00 Metronidazole (Flagyl) 500 mg Q8 PO Last administered on 10/07/16 13:19; Admin Dose 500 MG; Start 09/26/16 at 22:00 Ferrous Sulfate (Ferrous Sulfate (Ec)) 325 mg BID PO Last administered on 08:11; Admin Dose 325 MG; Start 09/26/16 at 21:00 Hydralazine HCl (Apresoline) 25 mg Q8 PO Last administered on 10/07/16 13:18; Admin Dose 25 MG; Start 09/26/16 at 22:00 Folic Acid (Folic Acid) 1 mg DAILY PO Last administered on 4/1/17at 08:11; Admin Dose 1 MG; Start 09/27/16 at 09:00 Tamsulosin HCl (Flomax) 0.4 mg BID PO Last administered on 10/07/16t 08:11; Admin Dose 0.4 MG; Start 09/28/16 at 21:00 Assessment/Plan Additional Assessment/Plan IMPRESSION: 1. Recent cerebrovascular accident. 2. Recent diagnosis of adenocarcinoma with sigmoid resection. 3. History of hypertension. 4. History of neurocysticercosis. 5. Urinary retention PLAN: 1. Continue aspiration precautions 2. Continue PT/OT. 3. DVT GI prophylaxis TESSY BIRD MD Oct 07, 2016 16:55
--- NOTE | 2016-10-07 17:51 | PN ---
DATE: 10/07/2016 SUBJECTIVE: Urinary retention. The patient has not been able to urinate and required in and out ca theterization, last time was this morning and he was catheterized for 500 mL. The patient had a CT scan of the abdomen and pelvis when he was in the acute side of the hospital. I looked at the CT sc an, basically it showed that he has also a large prostate. His prostate measured about 5 cm wide an d almost 5 cm AP high. So, he may be also having a problem urinating because of the size of the pro state, but the issue is that he is not feeling the urge to urinate. Even when he has a full bladder , he is not in pain, which indicates that there is a neurological factor as well. VITAL SIGNS: Today, his temperature is 98.1, blood pressure 146/73, pulse is 78, respirations 15. PLAN: To continue him on the tamsulosin twice a day and continue the in and out catheterization and try to teach his to try to do the catheterization for him. If they do not that and he still i s unable to urinate, then he will have to go home with a Duque catheter. Dictated By: SUSNA MERINO/ABDOULAYE Conf#: [id number] DID#: [id number]
[2016-10-07 20:21] VITALS: BP 159/74; RESP 18
[2016-10-07] MEDS: ATORVASTATIN 20 MG TAB PO SCH (21:03)
[2016-10-07] MEDS: INSULIN GLARGINE [LANtus] 3 ML PEN SC SCH (21:08)
[2016-10-08] MEDS: ACCUCHECK AT 2AM (Patients on SS coverage) XX SCH (02:00)
[2016-10-08] MEDS: metroNIDAZOLE 500 MG TAB PO SCH ×3 (06:08→21:15)
[2016-10-08] MEDS: PANTOPRAZOLE (EC) 40 MG TAB PO SCH ×2 (06:09→17:32)
[2016-10-08 07:30] VITALS: BP 135/67; RESP 18
[2016-10-08] MEDS: INSULIN ASPART [NOVOLOG] 3 ML PEN SC SCH ×7 (07:35→21:00)
[2016-10-08] MEDS: TAMSULOSIN (SR) 0.4 MG CAP PO SCH ×2 (08:14→21:08)
[2016-10-08] MEDS: FERROUS SULFATE (EC) 325 MG TAB PO SCH ×2 (08:14→21:08)
[2016-10-08] MEDS: LOSARTAN 50 MG TAB PO SCH ×2 (08:14→21:09)
[2016-10-08] MEDS: ASPIRIN 81 MG TAB PO SCH (08:14)
[2016-10-08] MEDS: FOLIC ACID 1 MG TAB PO SCH (08:14)
[2016-10-08] MEDS: ENOXAPARIN 100 MG/ML SYG SC SCH (08:15)
[2016-10-08] MEDS: NIFEdipine (XL) 60 MG TAB PO SCH ×2 (08:15→21:09)
--- NOTE | 2016-10-08 15:34 | CONS ---
Date/Time of Note Date/Time of Note DATE: 10/08/16 TIME: 15:33 Consult Date/Type/Reason Admit Date/Time Sep 26, 2016 at 17:15 Type of Consultation: Pulm Subjective No events. Urology input appreciated. Objective Vital Signs Date Time Temp Pulse Resp B/P Pulse Ox O2 Delivery O2 Flow Rate FiO2 10/08/16 07:30 98.0 76 18 135/67 96 10/04/16 13:43 Room Air Intake and Output 10/07/16 10/07/16 10/08/16 15:00 23:00 07:00 Intake Total 480 ml 660 ml Output Total 650 ml 1730 ml Balance -170 ml -1070 ml Exam NECK: Supple. No JVD or lymphadenopathy. CARDIAC: S1, S2, no added sounds or murmurs. CHEST: Diminished air entry bilaterally. ABDOMEN: Soft, nontender. No guarding or rebound. EXTREMITIES: No cyanosis, clubbing, edema. Results/Medications Results 24 hrs Laboratory Tests Test 10/07/16 16:35 10/07/16 20:13 10/08/16 07:41 10/08/16 11:55 Bedside Glucose 177 110 101 126 Medications Current Medications Aspirin (Aspirin) 81 mg DAILY PO Last administered on 10/08/16 08:14; Admin Dose 81 MG; Start 09/27/16 at 09:00 Acetaminophen (Tylenol Tab) 650 mg Q6H PRN PO PAIN LEVEL 1-3 OR FEVER Last administered on 09/29/16 13:13; Admin Dose 650 MG; Start 09/26/16 at 19:00 Magnesium Hydroxide (Milk Of Mag) 30 ml DAILY PRN PO CONSTIPATION; Start at 19:00 Bisacodyl (Dulcolax) 5 mg DAILY PRN PO CONSTIPATION; Start 09/26/16 at 19:00 Insulin Glargine (Lantus) 8 unit DAILY@20 SC Last administered on 10/07/16 21: 08; Admin Dose 8 UNIT; Start 09/26/16 at 20:00 Atorvastatin Calcium (Lipitor) 20 mg QHS PO Last administered on 10/07/16 21:03 ; Admin Dose 20 MG; Start 09/26/16 at 21:00 Diagnostic Test (Pha) (Accucheck) 1 ea 02 XX ; Start 09/27/16 at 02:00 Miscellaneous Information 1 ea NOTE XX ; Start 09/27/16 at 09:00 Glucose (Glutose) 15 gm Q15M PRN PO DECREASED GLUCOSE; Start 09/26/16 at 19:00 Glucose (Glutose) 22.5 gm Q15M PRN PO DECREASED GLUCOSE; Start 09/26/16 at 19: 00 Dextrose (D50w Syringe) 25 ml Q15M PRN IV DECREASED GLUCOSE; Start 09/26/16 at 19:00 Dextrose (D50w Syringe) 50 ml Q15M PRN IV DECREASED GLUCOSE; Start 09/26/16 at 19:00 Glucose (Glutose) 15 gm Q15M PRN BUCCAL DECREASED GLUCOSE; Start 09/26/16 at 19 :00 Losartan Potassium (Cozaar) 50 mg BID PO Last administered on 10/08/16 08:14; Admin Dose 50 MG; Start 09/26/16 at 21:00 Nifedipine (Procardia Xl) 60 mg BID PO Last administered on 10/08/16 08:15; Admin Dose 60 MG; Start 09/26/16 at 21:00 Pantoprazole (Protonix Tab) 40 mg BID@06,18 PO Last administered on 10/08/16 06 :09; Admin Dose 40 MG; Start 09/26/16 at 18:00 Enoxaparin Sodium (Lovenox) 85 mg Q24H SC Last administered on 10/08/16 08:15; Admin Dose 85 MG; Start 09/27/16 at 09:00 Zolpidem Tartrate (Ambien) 5 mg HS PRN PO INSOMNIA; Start 09/26/16 at 19:00 Metronidazole (Flagyl) 500 mg Q8 PO Last administered on 10/08/16 13:47; Admin Dose 500 MG; Start 09/26/16 at 22:00 Ferrous Sulfate (Ferrous Sulfate (Ec)) 325 mg BID PO Last administered on 08:14; Admin Dose 325 MG; Start 09/26/16 at 21:00 Hydralazine HCl (Apresoline) 25 mg Q8 PO Last administered on 10/08/16 13:48; Admin Dose 25 MG; Start 09/26/16 at 22:00 Folic Acid (Folic Acid) 1 mg DAILY PO Last administered on 10/08/16 08:14; Admin Dose 1 MG; Start 09/27/16 at 09:00 Tamsulosin HCl (Flomax) 0.4 mg BID PO Last administered on 10/08/16t 08:14; Admin Dose 0.4 MG; Start 09/28/16 at 21:00 Assessment/Plan Additional Assessment/Plan IMPRESSION: 1. Recent cerebrovascular accident. 2. Recent diagnosis of adenocarcinoma with sigmoid resection. 3. History of hypertension. 4. History of neurocysticercosis. 5. Urinary retention PLAN: 1. Continue aspiration precautions 2. Continue PT/OT. 3. DVT GI prophylaxis 4. Management of urinary retention as per Urology. TESSY BIRD MD Oct 08, 2016 15:34
--- NOTE | 2016-10-08 15:54 | PN ---
DATE: 10/08/2016 SUBJECTIVE: Urinary retention. The patient does void small amount but he keeps a high postvoid res idual. He is sleeping most of the time. He denies having any pain. OBJECTIVE: VITAL SIGNS: His temperature is 98.0, blood pressure 155/67, pulse is 76, respirations 18. ABDOMEN: Soft. There is no tenderness. The patient voided about 50 mL and the straight catheterized after he voided got 500 mL. Yesterday, he has voided about 150, but yet his postvoid residual was 400 by straight catheterization. IMPRESSION: Urinary retention. PLAN: Continue to check his postvoid residual and do a straight catheterization for a postvoid resi dual of 300 or a bladder volume of over 500 if he does not void. Dictated By: SUSAN MERINO/ABDOULAYE Conf#: [id number] DID#: [id number]
[2016-10-08] MEDS: ACETAMINOPHEN 325 MG TAB PO PRN (17:36)
[2016-10-08 19:49] VITALS: BP 129/65; RESP 19
[2016-10-08] MEDS: ATORVASTATIN 20 MG TAB PO SCH (21:09)
[2016-10-08] MEDS: INSULIN GLARGINE [LANtus] 3 ML PEN SC SCH (21:14)
[2016-10-09] MEDS: ACCUCHECK AT 2AM (Patients on SS coverage) XX SCH (02:00)
[2016-10-09 06:05] VITALS: BP 127/60; PULSE 81
[2016-10-09] MEDS: PANTOPRAZOLE (EC) 40 MG TAB PO SCH ×2 (06:06→17:30)
[2016-10-09] MEDS: metroNIDAZOLE 500 MG TAB PO SCH ×3 (06:06→22:00)
[2016-10-09 07:30] VITALS: BP 126/65; RESP 18
[2016-10-09] MEDS: INSULIN ASPART [NOVOLOG] 3 ML PEN SC SCH ×7 (07:44→20:58)
[2016-10-09] MEDS: ENOXAPARIN 100 MG/ML SYG SC SCH (07:46)
[2016-10-09] MEDS: FERROUS SULFATE (EC) 325 MG TAB PO SCH ×2 (07:47→20:48)
[2016-10-09] MEDS: TAMSULOSIN (SR) 0.4 MG CAP PO SCH ×2 (07:47→20:48)
[2016-10-09] MEDS: FOLIC ACID 1 MG TAB PO SCH (07:47)
[2016-10-09] MEDS: ASPIRIN 81 MG TAB PO SCH (07:48)
[2016-10-09] MEDS: LOSARTAN 50 MG TAB PO SCH ×2 (07:49→20:48)
[2016-10-09] MEDS: NIFEdipine (XL) 60 MG TAB PO SCH ×2 (07:50→20:48)
--- NOTE | 2016-10-09 10:23 | CONS ---
Date/Time of Note Date/Time of Note DATE: 10/09/16 TIME: 10:23 Consultation Date/Type/Reason Admit Date/Time Sep 26, 2016 at 17:15 Initial Consult Date Type of Consultation: GI Exam/Review of Systems Vital Signs Vitals Vital Signs Date Time Temp Pulse Resp B/P Pulse Ox O2 Delivery O2 Flow Rate FiO2 10/09/16 07:30 98.4 80 18 126/65 96 Intake and Output 10/08/16 10/08/16 10/09/16 15:00 23:00 07:00 Intake Total 1540 ml 300 ml Output Total 751 ml 1000 ml Balance 789 ml -700 ml Results Results 24 hrs Laboratory Tests Test 10/08/16 11:55 10/08/16 16:52 10/08/16 20:38 10/09/16 07:15 Bedside Glucose 126 122 145 148 Medications Medications Current Medications Aspirin (Aspirin) 81 mg DAILY PO Last administered on 10/09/16 07:48; Admin Dose 81 MG; Start 09/27/16 at 09:00 Acetaminophen (Tylenol Tab) 650 mg Q6H PRN PO PAIN LEVEL 1-3 OR FEVER Last administered on 10/08/16 17:36; Admin Dose 650 MG; Start 09/26/16 at 19:00 Magnesium Hydroxide (Milk Of Mag) 30 ml DAILY PRN PO CONSTIPATION; Start at 19:00 Bisacodyl (Dulcolax) 5 mg DAILY PRN PO CONSTIPATION; Start 09/26/16 at 19:00 Insulin Glargine (Lantus) 8 unit DAILY@20 SC Last administered on 10/08/16 21: 14; Admin Dose 8 UNIT; Start 09/26/16 at 20:00 Atorvastatin Calcium (Lipitor) 20 mg QHS PO Last administered on 10/08/16 21:09 ; Admin Dose 20 MG; Start 09/26/16 at 21:00 Diagnostic Test (Pha) (Accucheck) 1 ea 02 XX ; Start 09/27/16 at 02:00 Miscellaneous Information 1 ea NOTE XX ; Start 09/27/16 at 09:00 Glucose (Glutose) 15 gm Q15M PRN PO DECREASED GLUCOSE; Start 09/26/16 at 19:00 Glucose (Glutose) 22.5 gm Q15M PRN PO DECREASED GLUCOSE; Start 09/26/16 at 19: 00 Dextrose (D50w Syringe) 25 ml Q15M PRN IV DECREASED GLUCOSE; Start 09/26/16 at 19:00 Dextrose (D50w Syringe) 50 ml Q15M PRN IV DECREASED GLUCOSE; Start 09/26/16 at 19:00 Glucose (Glutose) 15 gm Q15M PRN BUCCAL DECREASED GLUCOSE; Start 09/26/16 at 19 :00 Losartan Potassium (Cozaar) 50 mg BID PO Last administered on 10/09/16 07:49; Admin Dose 50 MG; Start 09/26/16 at 21:00 Nifedipine (Procardia Xl) 60 mg BID PO Last administered on 10/09/16 07:50; Admin Dose 60 MG; Start 09/26/16 at 21:00 Pantoprazole (Protonix Tab) 40 mg BID@,18 PO Last administered on 10/09/16 06 :06; Admin Dose 40 MG; Start 09/26/16 at 18:00 Enoxaparin Sodium (Lovenox) 85 mg Q24H SC Last administered on 10/09/16 07:46; Admin Dose 85 MG; Start 09/27/16 at 09:00 Zolpidem Tartrate (Ambien) 5 mg HS PRN PO INSOMNIA; Start 09/26/16 at 19:00 Metronidazole (Flagyl) 500 mg Q8 PO Last administered on 10/09/16 06:06; Admin Dose 500 MG; Start 09/26/16 at 22:00 Ferrous Sulfate (Ferrous Sulfate (Ec)) 325 mg BID PO Last administered on 07:47; Admin Dose 325 MG; Start 09/26/16 at 21:00 Hydralazine HCl (Apresoline) 25 mg Q8 PO Last administered on 10/09/16 06:07; Admin Dose 25 MG; Start 09/26/16 at 22:00 Folic Acid (Folic Acid) 1 mg DAILY PO Last administered on 10/09/16 07:47; Admin Dose 1 MG; Start 09/27/16 at 09:00 Tamsulosin HCl (Flomax) 0.4 mg BID PO Last administered on 10/09/16 07:47; Admin Dose 0.4 MG; Start 09/28/16 at 21:00 BRIA ROMERO MD Oct 09, 2016 10:23
--- NOTE | 2016-10-09 11:43 | CONS ---
Date/Time of Note Date/Time of Note DATE: 10/09/16 TIME: 11:42 Consult Date/Type/Reason Admit Date/Time Sep 26, 2016 at 17:15 Type of Consultation: internal medicine Subjective Patient remained stable no new events Abdominal wound shows some drainage, discussed with nursing staff. Surgery reevaluation Objective Vital Signs Date Time Temp Pulse Resp B/P Pulse Ox O2 Delivery O2 Flow Rate FiO2 10/09/16 07:30 98.4 80 18 126/65 96 Intake and Output 10/08/16 10/08/16 10/09/16 15:00 23:00 07:00 Intake Total 1540 ml 300 ml Output Total 751 ml 1000 ml Balance 789 ml -700 ml Exam OBJECTIVE: VITAL SIGNS: As above NECK: Supple. No JVD or lymphadenopathy. CARDIAC: S1, S2, no added sounds or murmurs. CHEST: Diminished air entry bilaterally. ABDOMEN: Soft, nontender. No guarding or rebound. EXTREMITIES: No cyanosis, clubbing, edema. NEUROLOGIC: Hemiplegia Results/Medications Results 24 hrs Laboratory Tests Test 10/08/16 11:55 10/08/16 16:52 10/08/16 20:38 10/09/16 07:15 Bedside Glucose 126 122 145 148 Medications Current Medications Aspirin (Aspirin) 81 mg DAILY PO Last administered on 10/09/16 07:48; Admin Dose 81 MG; Start 09/27/16 at 09:00 Acetaminophen (Tylenol Tab) 650 mg Q6H PRN PO PAIN LEVEL 1-3 OR FEVER Last administered on 10/08/16 17:36; Admin Dose 650 MG; Start 09/26/16 at 19:00 Magnesium Hydroxide (Milk Of Mag) 30 ml DAILY PRN PO CONSTIPATION; Start at 19:00 Bisacodyl (Dulcolax) 5 mg DAILY PRN PO CONSTIPATION; Start 09/26/16 at 19:00 Insulin Glargine (Lantus) 8 unit DAILY@20 SC Last administered on 10/08/16 21: 14; Admin Dose 8 UNIT; Start 09/26/16 at 20:00 Atorvastatin Calcium (Lipitor) 20 mg QHS PO Last administered on 10/08/16 21:09 ; Admin Dose 20 MG; Start 09/26/16 at 21:00 Diagnostic Test (Pha) (Accucheck) 1 ea 02 XX ; Start 09/27/16 at 02:00 Miscellaneous Information 1 ea NOTE XX ; Start 09/27/16 at 09:00 Glucose (Glutose) 15 gm Q15M PRN PO DECREASED GLUCOSE; Start 09/26/16 at 19:00 Glucose (Glutose) 22.5 gm Q15M PRN PO DECREASED GLUCOSE; Start 09/26/16 at 19: 00 Dextrose (D50w Syringe) 25 ml Q15M PRN IV DECREASED GLUCOSE; Start 09/26/16 at 19:00 Dextrose (D50w Syringe) 50 ml Q15M PRN IV DECREASED GLUCOSE; Start 09/26/16 at 19:00 Glucose (Glutose) 15 gm Q15M PRN BUCCAL DECREASED GLUCOSE; Start 09/26/16 at 19 :00 Losartan Potassium (Cozaar) 50 mg BID PO Last administered on 10/09/16 07:49; Admin Dose 50 MG; Start 09/26/16 at 21:00 Nifedipine (Procardia Xl) 60 mg BID PO Last administered on 10/09/16 07:50; Admin Dose 60 MG; Start 09/26/16 at 21:00 Pantoprazole (Protonix Tab) 40 mg BID@06,18 PO Last administered on 10/09/16 06 :06; Admin Dose 40 MG; Start 09/26/16 at 18:00 Enoxaparin Sodium (Lovenox) 85 mg Q24H SC Last administered on 10/09/16 07:46; Admin Dose 85 MG; Start 09/27/16 at 09:00 Zolpidem Tartrate (Ambien) 5 mg HS PRN PO INSOMNIA; Start 09/26/16 at 19:00 Metronidazole (Flagyl) 500 mg Q8 PO Last administered on 10/09/16 06:06; Admin Dose 500 MG; Start 09/26/16 at 22:00 Ferrous Sulfate (Ferrous Sulfate (Ec)) 325 mg BID PO Last administered on 07:47; Admin Dose 325 MG; Start 09/26/16 at 21:00 Hydralazine HCl (Apresoline) 25 mg Q8 PO Last administered on 10/09/16 06:07; Admin Dose 25 MG; Start 09/26/16 at 22:00 Folic Acid (Folic Acid) 1 mg DAILY PO Last administered on 10/09/16 07:47; Admin Dose 1 MG; Start 09/27/16 at 09:00 Tamsulosin HCl (Flomax) 0.4 mg BID PO Last administered on 10/09/16 07:47; Admin Dose 0.4 MG; Start 09/28/16 at 21:00 Assessment/Plan Chief Complaint/Hosp Course IMPRESSION 1. Recent cerebrovascular accident. 2. Recent diagnosis of adenocarcinoma with sigmoid resection. Mild drainage from abdominal wound 3. History of hypertension. 4. History of neurocysticercosis. 5. Urinary retention PLAN: 1. Continue aspiration precautions 2. Continue physical therapy. 3. Hematology/oncology recommendations. Family declined conventional chemotherapy 4. DVT GI prophylaxis 5. Continue urology recommendations with straight catheter as needed 6. Surgery evaluation of wound Problems: FAHAD BARDALES MD, [facility] Oct 09, 2016 11:43
[2016-10-09 12:21] LABS: ADD SCAN DIFF NO
--- NOTE | 2016-10-09 12:22 | CONS ---
Date/Time of Note Date/Time of Note DATE: 10/09/16 TIME: 12:20 Consult Date/Type/Reason Admit Date/Time Sep 26, 2016 at 17:15 Type of Consultation: internal medicine Subjective Rn reports drainage from wound Objective Vital Signs Date Time Temp Pulse Resp B/P Pulse Ox O2 Delivery O2 Flow Rate FiO2 10/09/16 07:30 98.4 80 18 126/65 96 Intake and Output 10/08/16 10/08/16 10/09/16 14:59 22:59 06:59 Intake Total 1540 ml 300 ml Output Total 751 ml 1000 ml Balance 789 ml -700 ml INTERDISCIPLINARY TEAM CONFERENCE BOWEL- Cont BLADDER-Urinary retention requiring I&O cath SKIN- abd wound drainage OT- DRESSING-sba/min BATHING-min TOILETING-min PT- BED MOBILITY-cga TRANSFERS-cga AMBULATION-cga 150 feet SPEECH- COGNITION-sba/min A/P- Interdisciplinary team conference held today. Please see interdisciplinary sheet. Working toward d.c. on 10/13 with post discharge follow up of physical therapy, occupational therapy. Results/Medications Results 24 hrs Laboratory Tests Test 10/08/16 16:52 10/08/16 20:38 10/09/16 07:15 10/09/16 11:51 Bedside Glucose 122 145 148 132 Medications Current Medications Aspirin (Aspirin) 81 mg DAILY PO Last administered on 10/09/16 07:48; Admin Dose 81 MG; Start 09/27/16 at 09:00 Acetaminophen (Tylenol Tab) 650 mg Q6H PRN PO PAIN LEVEL 1-3 OR FEVER Last administered on 10/08/16 17:36; Admin Dose 650 MG; Start 09/26/16 at 19:00 Magnesium Hydroxide (Milk Of Mag) 30 ml DAILY PRN PO CONSTIPATION; Start at 19:00 Bisacodyl (Dulcolax) 5 mg DAILY PRN PO CONSTIPATION; Start 09/26/16 at 19:00 Insulin Glargine (Lantus) 8 unit DAILY@20 SC Last administered on 10/08/16 21: 14; Admin Dose 8 UNIT; Start 09/26/16 at 20:00 Atorvastatin Calcium (Lipitor) 20 mg QHS PO Last administered on 10/08/16 21:09 ; Admin Dose 20 MG; Start 09/26/16 at 21:00 Diagnostic Test (Pha) (Accucheck) 1 ea 02 XX ; Start 09/27/16 at 02:00 Miscellaneous Information 1 ea NOTE XX ; Start 09/27/16 at 09:00 Glucose (Glutose) 15 gm Q15M PRN PO DECREASED GLUCOSE; Start 09/26/16 at 19:00 Glucose (Glutose) 22.5 gm Q15M PRN PO DECREASED GLUCOSE; Start 09/26/16 at 19: 00 Dextrose (D50w Syringe) 25 ml Q15M PRN IV DECREASED GLUCOSE; Start 09/26/16 at 19:00 Dextrose (D50w Syringe) 50 ml Q15M PRN IV DECREASED GLUCOSE; Start 09/26/16 at 19:00 Glucose (Glutose) 15 gm Q15M PRN BUCCAL DECREASED GLUCOSE; Start 09/26/16 at 19 :00 Losartan Potassium (Cozaar) 50 mg BID PO Last administered on 10/09/16 07:49; Admin Dose 50 MG; Start 09/26/16 at 21:00 Nifedipine (Procardia Xl) 60 mg BID PO Last administered on 10/09/16 07:50; Admin Dose 60 MG; Start 09/26/16 at 21:00 Pantoprazole (Protonix Tab) 40 mg BID@,18 PO Last administered on 10/09/16 06 :06; Admin Dose 40 MG; Start 09/26/16 at 18:00 Enoxaparin Sodium (Lovenox) 85 mg Q24H SC Last administered on 10/09/16 07:46; Admin Dose 85 MG; Start 09/27/16 at 09:00 Zolpidem Tartrate (Ambien) 5 mg HS PRN PO INSOMNIA; Start 09/26/16 at 19:00 Metronidazole (Flagyl) 500 mg Q8 PO Last administered on 10/09/16 06:06; Admin Dose 500 MG; Start 09/26/16 at 22:00 Ferrous Sulfate (Ferrous Sulfate (Ec)) 325 mg BID PO Last administered on 07:47; Admin Dose 325 MG; Start 09/26/16 at 21:00 Hydralazine HCl (Apresoline) 25 mg Q8 PO Last administered on 10/09/16 06:07; Admin Dose 25 MG; Start 09/26/16 at 22:00 Folic Acid (Folic Acid) 1 mg DAILY PO Last administered on 10/09/16 07:47; Admin Dose 1 MG; Start 09/27/16 at 09:00 Tamsulosin HCl (Flomax) 0.4 mg BID PO Last administered on 10/09/16 07:47; Admin Dose 0.4 MG; Start 09/28/16 at 21:00 SHEILA MARIE MD Oct 09, 2016 12:22
[2016-10-09 12:29] LABS: ABNORMAL IP MESSAGE 1; BASOPHIL # 0.1 10^3/ul (0.0-0.1); BASOPHILS % 1.5 % (0.0-2.0); EOSINOPHILS # 0.1 10^3/ul (0.0-0.5); EOSINOPHILS % 1.2 % (0.0-7.0); HEMATOCRIT 36.1 % (42.0-52.0); HEMOGLOBIN 11.1 g/dl (14.0-18.0); LYMPHOCYTES # 1.5 10^3/ul (0.8-2.9); LYMPHOCYTES % 20.6 % (15.0-51.0); MEAN CORPUSCULAR HEMOGLOBIN 24.6 pg (29.0-33.0); MEAN CORPUSCULAR HGB CONC 30.7 g/dl (32.0-37.0); MONOCYTE # 0.5 10^3/ul (0.3-0.9); MONOCYTES % 6.6 % (0.0-11.0); NEUTROPHIL # 5.2 10^3/ul (1.6-7.5); NEUTROPHILS % 69.8 % (39.0-77.0); PLATELET COUNT 322 10^3/UL (140-415); RED BLOOD COUNT 4.51 10^6/ul (4.70-6.10); WHITE BLOOD COUNT 7.4 10^3/ul (4.8-10.8)
[2016-10-09 12:32] LABS: RED CELL DISTRIBUTION WIDTH 32.3 % (11.5-14.5)
[2016-10-09 12:34] LABS: POTASSIUM 3.9 mmol/L (3.5-5.1)
[2016-10-09 12:36] LABS: CREATININE 0.79 mg/dl (0.61-1.24)
[2016-10-09 12:37] LABS: CALCIUM 9.8 mg/dl (8.4-10.2)
--- NOTE | 2016-10-09 19:08 | CONS ---
Date/Time of Note Date/Time of Note DATE: 10/09/16 TIME: 19:04 Assessment/Plan Assessment/Plan Chief Complaint/Hosp Course IMPRESSION 1. Recent cerebrovascular accident. 2. Recent diagnosis of adenocarcinoma with sigmoid resection. Mild drainage from abdominal wound 3. anemia of chronic disease, no e/o overt GIB at this time 4. History of neurocysticercosis. 5. Urinary retention PLAN: 1. Continue aspiration precautions 2. Continue physical therapy. 3. Dr. Dubon to evaluate patient for the surgical wound 4. Dr. Kearney to resume care of this patient tomorrow Problems: Consultation Date/Type/Reason Admit Date/Time Sep 26, 2016 at 17:15 Type of Consultation: GI Reason for Consultation leakage at the surgical site Hx of Present Illness 66-year-old gentleman with a history of diabetes mellitus and previous TIAs who was admitted on 09/11/2016 for acute CVA and GI consulted today for leakage at the incision surgical site. 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 During hospitalization, the patient was noted to have an episode of hematochezia which the patient reported ongoing for several months. Workup did reveal a sigmoid colon mass. 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 The patient underwent a resection of the colon mass on 09/22/[address] Dubon. Postoperatively, the patient has been noted to have significant impairments in self-care and mobility and transfer to the rehabilitation unit for comprehensive interdisciplinary rehab care. He was doing well until yesterday when it was noted that there is leakage at the surgical site. All point ros was administered, pertinent positives and negatives in HPI otherwise negative Past Medical History adenoCA of the colon, anemia Medical History: diabetes, high cholesterol, hypertension Past Surgical History Past Surgical Hx: bowel resection, endoscopy Family History Significant Family History: no pertinent family hx Social History Alcohol Use: none Smoking Status: Former smoker Drug Use: none Exam/Review of Systems Vital Signs Vitals Vital Signs Date Time Temp Pulse Resp B/P Pulse Ox O2 Delivery O2 Flow Rate FiO2 10/09/16 07:30 98.4 80 18 126/65 96 Intake and Output 10/08/16 10/08/16 10/09/16 15:00 23:00 07:00 Intake Total 1540 ml 300 ml Output Total 751 ml 1000 ml Balance 789 ml -700 ml Exam Constitutional: alert, oriented, well developed Psych: nl mood/affect, no complaints Head: atraumatic, normocephalic Eyes: EOMI, nl conjunctiva, nl lids ENMT: nl external ears & nose, nl lips & teeth, nl nasal mucosa & septum Neck: non-tender, supple Respiratory: clear to auscultation, normal air movement Cardiovascular: nl pulses, regular rate and rhythm Gastrointestinal: bowel sounds, non-tender, soft, surgical scars (small opening at the incision site with minimal drainage) Musculoskeletal: nl extremities to inspection, nl gait and stance Neurological: nl mental status, nl speech, nl strength Results Result Diagram: 10/09/16 1151 10/09/16 1151 Results 24 hrs Laboratory Tests Test 10/08/16 20:38 10/09/16 07:15 10/09/16 11:51 10/09/16 16:59 Bedside Glucose 145 148 132 193 White Blood Count 7.4 Red Blood Count 4.51 L Hemoglobin 11.1 L Hematocrit 36.1 L Mean Corpuscular Volume 80.0 L Mean Corpuscular Hemoglobin 24.6 L Mean Corpuscular Hemoglobin Concent 30.7 L Red Cell Distribution Width 32.3 H Platelet Count 322 Mean Platelet Volume Neutrophils % 69.8 Lymphocytes % 20.6 Monocytes % 6.6 Eosinophils % 1.2 Basophils % 1.5 Nucleated Red Blood Cells % 0.0 Neutrophils # 5.2 Lymphocytes # 1.5 Monocytes # 0.5 Eosinophils # 0.1 Basophils # 0.1 Nucleated Red Blood Cells # 0.0 Sodium Level 139 Potassium Level 3.9 Chloride Level 103 Carbon Dioxide Level 23 Anion Gap 17 H Blood Urea Nitrogen 19 Creatinine 0.79 Glucose Level 137 Calcium Level 9.8 Medications Medications Current Medications Aspirin (Aspirin) 81 mg DAILY PO Last administered on 10/09/16 07:48; Admin Dose 81 MG; Start 09/27/16 at 09:00 Acetaminophen (Tylenol Tab) 650 mg Q6H PRN PO PAIN LEVEL 1-3 OR FEVER Last administered on 10/08/16 17:36; Admin Dose 650 MG; Start 09/26/16 at 19:00 Magnesium Hydroxide (Milk Of Mag) 30 ml DAILY PRN PO CONSTIPATION; Start at 19:00 Bisacodyl (Dulcolax) 5 mg DAILY PRN PO CONSTIPATION; Start 09/26/16 at 19:00 Insulin Glargine (Lantus) 8 unit DAILY@20 SC Last administered on 10/08/16 21: 14; Admin Dose 8 UNIT; Start 09/26/16 at 20:00 Atorvastatin Calcium (Lipitor) 20 mg QHS PO Last administered on 10/08/16 21:09 ; Admin Dose 20 MG; Start 09/26/16 at 21:00 Diagnostic Test (Pha) (Accucheck) 1 ea 02 XX ; Start 09/27/16 at 02:00 Miscellaneous Information 1 ea NOTE XX ; Start 09/27/16 at 09:00 Glucose (Glutose) 15 gm Q15M PRN PO DECREASED GLUCOSE; Start 09/26/16 at 19:00 Glucose (Glutose) 22.5 gm Q15M PRN PO DECREASED GLUCOSE; Start 09/26/16 at 19: 00 Dextrose (D50w Syringe) 25 ml Q15M PRN IV DECREASED GLUCOSE; Start 09/26/16 at 19:00 Dextrose (D50w Syringe) 50 ml Q15M PRN IV DECREASED GLUCOSE; Start 09/26/16 at 19:00 Glucose (Glutose) 15 gm Q15M PRN BUCCAL DECREASED GLUCOSE; Start 09/26/16 at 19 :00 Losartan Potassium (Cozaar) 50 mg BID PO Last administered on 10/09/16 07:49; Admin Dose 50 MG; Start 09/26/16 at 21:00 Nifedipine (Procardia Xl) 60 mg BID PO Last administered on 10/09/16 07:50; Admin Dose 60 MG; Start 09/26/16 at 21:00 Pantoprazole (Protonix Tab) 40 mg BID@06,18 PO Last administered on 10/09/16 17 :30; Admin Dose 40 MG; Start 09/26/16 at 18:00 Enoxaparin Sodium (Lovenox) 85 mg Q24H SC Last administered on 10/09/16 07:46; Admin Dose 85 MG; Start 09/27/16 at 09:00 Zolpidem Tartrate (Ambien) 5 mg HS PRN PO INSOMNIA; Start 09/26/16 at 19:00 Metronidazole (Flagyl) 500 mg Q8 PO Last administered on 10/09/16 13:36; Admin Dose 500 MG; Start 09/26/16 at 22:00 Ferrous Sulfate (Ferrous Sulfate (Ec)) 325 mg BID PO Last administered on 07:47; Admin Dose 325 MG; Start 09/26/16 at 21:00 Hydralazine HCl (Apresoline) 25 mg Q8 PO Last administered on 10/09/16 13:37; Admin Dose 25 MG; Start 09/26/16 at 22:00 Folic Acid (Folic Acid) 1 mg DAILY PO Last administered on 10/09/16 07:47; Admin Dose 1 MG; Start 09/27/16 at 09:00 Tamsulosin HCl (Flomax) 0.4 mg BID PO Last administered on 10/09/16 07:47; Admin Dose 0.4 MG; Start 09/28/16 at 21:00 BRIA ROMERO MD Oct 09, 2016 19:08
[2016-10-09 19:29] VITALS: BP 146/67; RESP 18
[2016-10-09] MEDS: ATORVASTATIN 20 MG TAB PO SCH (20:48)
[2016-10-09] MEDS: INSULIN GLARGINE [LANtus] 3 ML PEN SC SCH (20:57)
[2016-10-09 22:01] VITALS: BP 146/70; PULSE 68
[2016-10-09] MEDS: ACETAMINOPHEN 325 MG TAB PO PRN (22:41)
[2016-10-10] MEDS: ACCUCHECK AT 2AM (Patients on SS coverage) XX SCH (01:12)
[2016-10-10] MEDS: PANTOPRAZOLE (EC) 40 MG TAB PO SCH ×2 (05:43→17:55)
[2016-10-10] MEDS: metroNIDAZOLE 500 MG TAB PO SCH ×3 (05:43→21:24)
[2016-10-10] MEDS: ACETAMINOPHEN 325 MG TAB PO PRN ×2 (05:44→14:51)
[2016-10-10 05:48] VITALS: BP 135/65; PULSE 71
[2016-10-10] MEDS: INSULIN ASPART [NOVOLOG] 3 ML PEN SC SCH ×7 (07:35→20:24)
[2016-10-10 08:08] VITALS: BP 144/63; RESP 18
[2016-10-10] MEDS: FOLIC ACID 1 MG TAB PO SCH (08:18)
[2016-10-10] MEDS: LOSARTAN 50 MG TAB PO SCH ×2 (08:19→20:22)
[2016-10-10] MEDS: NIFEdipine (XL) 60 MG TAB PO SCH ×2 (08:19→20:22)
[2016-10-10] MEDS: TAMSULOSIN (SR) 0.4 MG CAP PO SCH ×2 (08:19→20:22)
[2016-10-10] MEDS: ASPIRIN 81 MG TAB PO SCH (08:19)
[2016-10-10] MEDS: FERROUS SULFATE (EC) 325 MG TAB PO SCH ×2 (08:19→20:22)
[2016-10-10] MEDS: ENOXAPARIN 100 MG/ML SYG SC SCH (08:21)
--- NOTE | 2016-10-10 12:00 | CONS ---
Date/Time of Note Date/Time of Note DATE: 10/10/16 TIME: 11:59 Consult Date/Type/Reason Admit Date/Time Sep 26, 2016 at 17:15 Type of Consultation: GI Subjective Comfortable Objective pulm-cta cga ambulation 150 feet Vital Signs Date Time Temp Pulse Resp B/P Pulse Ox O2 Delivery O2 Flow Rate FiO2 10/10/16 08:08 98.2 65 18 144/63 97 Intake and Output 10/09/16 10/09/16 10/10/16 14:59 22:59 06:59 Intake Total 800 ml 800 ml Output Total 500 ml 1000 ml Balance 300 ml -200 ml Results/Medications Result Diagram: 10/09/16 1151 10/09/16 1151 Results 24 hrs Laboratory Tests Test 10/09/16 16:59 10/09/16 20:47 10/10/16 07:44 10/10/16 11:52 Bedside Glucose 193 114 124 146 Medications Current Medications Aspirin (Aspirin) 81 mg DAILY PO Last administered on 10/10/16 08:19; Admin Dose 81 MG; Start 09/27/16 at 09:00 Acetaminophen (Tylenol Tab) 650 mg Q6H PRN PO PAIN LEVEL 1-3 OR FEVER Last administered on 10/10/16 05:44; Admin Dose 650 MG; Start 09/26/16 at 19:00 Magnesium Hydroxide (Milk Of Mag) 30 ml DAILY PRN PO CONSTIPATION; Start at 19:00 Bisacodyl (Dulcolax) 5 mg DAILY PRN PO CONSTIPATION; Start 09/26/16 at 19:00 Insulin Glargine (Lantus) 8 unit DAILY@20 SC Last administered on 10/09/16 20: 57; Admin Dose 8 UNIT; Start 09/26/16 at 20:00 Atorvastatin Calcium (Lipitor) 20 mg QHS PO Last administered on 10/09/16 20:48 ; Admin Dose 20 MG; Start 09/26/16 at 21:00 Diagnostic Test (Pha) (Accucheck) 1 ea 02 XX ; Start 09/27/16 at 02:00 Miscellaneous Information 1 ea NOTE XX ; Start 09/27/16 at 09:00 Glucose (Glutose) 15 gm Q15M PRN PO DECREASED GLUCOSE; Start 09/26/16 at 19:00 Glucose (Glutose) 22.5 gm Q15M PRN PO DECREASED GLUCOSE; Start 09/26/16 at 19: 00 Dextrose (D50w Syringe) 25 ml Q15M PRN IV DECREASED GLUCOSE; Start 09/26/16 at 19:00 Dextrose (D50w Syringe) 50 ml Q15M PRN IV DECREASED GLUCOSE; Start 09/26/16 at 19:00 Glucose (Glutose) 15 gm Q15M PRN BUCCAL DECREASED GLUCOSE; Start 09/26/16 at 19 :00 Losartan Potassium (Cozaar) 50 mg BID PO Last administered on 10/10/16 08:19; Admin Dose 50 MG; Start 09/26/16 at 21:00 Nifedipine (Procardia Xl) 60 mg BID PO Last administered on 10/10/16 08:19; Admin Dose 60 MG; Start 09/26/16 at 21:00 Pantoprazole (Protonix Tab) 40 mg BID@,18 PO Last administered on 10/10/16 05 :43; Admin Dose 40 MG; Start 09/26/16 at 18:00 Enoxaparin Sodium (Lovenox) 85 mg Q24H SC Last administered on 10/10/16 08:21; Admin Dose 85 MG; Start 09/27/16 at 09:00 Zolpidem Tartrate (Ambien) 5 mg HS PRN PO INSOMNIA; Start 09/26/16 at 19:00 Metronidazole (Flagyl) 500 mg Q8 PO Last administered on 10/10/16 05:43; Admin Dose 500 MG; Start 09/26/16 at 22:00 Ferrous Sulfate (Ferrous Sulfate (Ec)) 325 mg BID PO Last administered on 08:19; Admin Dose 325 MG; Start 09/26/16 at 21:00 Hydralazine HCl (Apresoline) 25 mg Q8 PO Last administered on 10/10/16 05:44; Admin Dose 25 MG; Start 09/26/16 at 22:00 Folic Acid (Folic Acid) 1 mg DAILY PO Last administered on 10/10/16 08:18; Admin Dose 1 MG; Start 09/27/16 at 09:00 Tamsulosin HCl (Flomax) 0.4 mg BID PO Last administered on 10/10/16 08:19; Admin Dose 0.4 MG; Start 09/28/16 at 21:00 Assessment/Plan Additional Assessment/Plan 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 Await surgery follow up - urinary retention, f/b urology DM2 anemia SHEILA MARIE MD Oct 10, 2016 12:00
--- NOTE | 2016-10-10 17:51 | PN ---
DATE: 10/10/2016 SUBJECTIVE: Urinary retention. The patient has been voiding and his postvoid residual has been hig h and at times he needed to undergo in and out catheterization. At the present, the patient is comf ortable and his family is around him. He denies having any pain. OBJECTIVE: VITAL SIGNS: Temperature is 98.2, respirations 18, pulse 65, blood pressure 144/63. ABDOMEN: Soft. Yesterday, the patient had been voiding about 200 mL. His postvoid residual was 456, by straight c atheterization 400. Then, he voided 150, PVR 301 per the bladder scan. Then, he voided 250, PVR 34 2. Then, he voided 400, PVR 284. The last one yesterday, he voided 200, PVR was 567 and straight c atheterization yielded 500 mL. Today, he did urinate about 300 mL, the PVR by bladder scan was 287. IMPRESSION: Urinary retention, but it looks like the patient is improving with his voiding. PLAN: To continue the tamsulosin 0.4 mg. Continue to check his postvoid residuals and do straight catheterization on him if the PVR is over 300 mL or if he does not void and the bladder scan is over 500. Also, plan is to teach his how to do the in and out catheterization for him. It seems t he has been also taught and we will try to have her at least do it once while he is in the hosp [facility] to make sure that when he goes home she adequate skills to do it for him. Dictated By: SUSAN MERINO/ABDOULAYE Conf#: [id number] DID#: [id number]
[2016-10-10 19:43] VITALS: BP 148/68; RESP 18
[2016-10-10] MEDS: ATORVASTATIN 20 MG TAB PO SCH (20:22)
[2016-10-10] MEDS: INSULIN GLARGINE [LANtus] 3 ML PEN SC SCH (20:23)
[2016-10-11] MEDS: ACCUCHECK AT 2AM (Patients on SS coverage) XX SCH (01:58)
[2016-10-11] MEDS: ACETAMINOPHEN 325 MG TAB PO PRN ×3 (05:25→23:18)
[2016-10-11] MEDS: PANTOPRAZOLE (EC) 40 MG TAB PO SCH ×2 (05:25→17:14)
[2016-10-11] MEDS: metroNIDAZOLE 500 MG TAB PO SCH ×3 (05:25→21:28)
[2016-10-11] MEDS: INSULIN ASPART [NOVOLOG] 3 ML PEN SC SCH ×7 (07:35→21:00)
[2016-10-11 07:37] VITALS: BP 131/62; RESP 18
[2016-10-11] MEDS: ENOXAPARIN 100 MG/ML SYG SC SCH (08:29)
[2016-10-11] MEDS: NEOMYC/POLYMYX/BACIT 30 GM OINT TOP SCH (08:30)
[2016-10-11] MEDS: NIFEdipine (XL) 60 MG TAB PO SCH ×2 (08:30→21:29)
[2016-10-11] MEDS: FERROUS SULFATE (EC) 325 MG TAB PO SCH ×2 (08:30→21:28)
[2016-10-11] MEDS: LOSARTAN 50 MG TAB PO SCH ×2 (08:30→21:28)
[2016-10-11] MEDS: ASPIRIN 81 MG TAB PO SCH (08:30)
[2016-10-11] MEDS: FOLIC ACID 1 MG TAB PO SCH (08:31)
[2016-10-11] MEDS: TAMSULOSIN (SR) 0.4 MG CAP PO SCH ×2 (08:31→21:28)
--- NOTE | 2016-10-11 10:50 | CONS ---
Date/Time of Note Date/Time of Note DATE: 10/11/16 TIME: 10:46 Consult Date/Type/Reason Admit Date/Time Sep 26, 2016 at 17:15 Type of Consultation: GI Subjective Feeling better Objective pulm-cta abd-soft, decreased drainage sba ambulation Vital Signs Date Time Temp Pulse Resp B/P Pulse Ox O2 Delivery O2 Flow Rate FiO2 10/11/16 07:37 98.1 89 18 131/62 97 Intake and Output 10/10/16 10/10/16 10/11/16 15:00 23:00 07:00 Intake Total 1200 ml 500 ml 800 ml Output Total 300 ml 300 ml 2250 ml Balance 900 ml 200 ml -1450 ml Results/Medications Result Diagram: 10/09/16 1151 10/09/16 1151 Results 24 hrs Laboratory Tests Test 10/10/16 11:52 10/10/16 17:20 10/10/16 20:20 10/11/16 07:54 Bedside Glucose 146 160 99 103 Medications Current Medications Aspirin (Aspirin) 81 mg DAILY PO Last administered on 10/11/16 08:30; Admin Dose 81 MG; Start 09/27/16 at 09:00 Acetaminophen (Tylenol Tab) 650 mg Q6H PRN PO PAIN LEVEL 1-3 OR FEVER Last administered on 10/11/16 05:25; Admin Dose 650 MG; Start 09/26/16 at 19:00 Magnesium Hydroxide (Milk Of Mag) 30 ml DAILY PRN PO CONSTIPATION; Start at 19:00 Bisacodyl (Dulcolax) 5 mg DAILY PRN PO CONSTIPATION; Start 09/26/16 at 19:00 Insulin Glargine (Lantus) 8 unit DAILY@20 SC Last administered on 10/10/16 20: 23; Admin Dose 8 UNIT; Start 09/26/16 at 20:00 Atorvastatin Calcium (Lipitor) 20 mg QHS PO Last administered on 10/10/16 20:22 ; Admin Dose 20 MG; Start 09/26/16 at 21:00 Diagnostic Test (Pha) (Accucheck) 1 ea 02 XX ; Start 09/27/16 at 02:00 Miscellaneous Information 1 ea NOTE XX ; Start 09/27/16 at 09:00 Glucose (Glutose) 15 gm Q15M PRN PO DECREASED GLUCOSE; Start 09/26/16 at 19:00 Glucose (Glutose) 22.5 gm Q15M PRN PO DECREASED GLUCOSE; Start 09/26/16 at 19: 00 Dextrose (D50w Syringe) 25 ml Q15M PRN IV DECREASED GLUCOSE; Start 09/26/16 at 19:00 Dextrose (D50w Syringe) 50 ml Q15M PRN IV DECREASED GLUCOSE; Start 09/26/16 at 19:00 Glucose (Glutose) 15 gm Q15M PRN BUCCAL DECREASED GLUCOSE; Start 09/26/16 at 19 :00 Losartan Potassium (Cozaar) 50 mg BID PO Last administered on 10/11/16 08:30; Admin Dose 50 MG; Start 09/26/16 at 21:00 Nifedipine (Procardia Xl) 60 mg BID PO Last administered on 10/11/16 08:30; Admin Dose 60 MG; Start 09/26/16 at 21:00 Pantoprazole (Protonix Tab) 40 mg BID@,18 PO Last administered on 10/11/16 05 :25; Admin Dose 40 MG; Start 09/26/16 at 18:00 Enoxaparin Sodium (Lovenox) 85 mg Q24H SC Last administered on 10/11/16 08:29; Admin Dose 85 MG; Start 09/27/16 at 09:00 Zolpidem Tartrate (Ambien) 5 mg HS PRN PO INSOMNIA; Start 09/26/16 at 19:00 Metronidazole (Flagyl) 500 mg Q8 PO Last administered on 10/11/16 05:25; Admin Dose 500 MG; Start 09/26/16 at 22:00 Ferrous Sulfate (Ferrous Sulfate (Ec)) 325 mg BID PO Last administered on 08:30; Admin Dose 325 MG; Start 09/26/16 at 21:00 Hydralazine HCl (Apresoline) 25 mg Q8 PO Last administered on 10/11/16 05:25; Admin Dose 25 MG; Start 09/26/16 at 22:00 Folic Acid (Folic Acid) 1 mg DAILY PO Last administered on 10/11/16 08:31; Admin Dose 1 MG; Start 09/27/16 at 09:00 Tamsulosin HCl (Flomax) 0.4 mg BID PO Last administered on 10/11/16 08:31; Admin Dose 0.4 MG; Start 09/28/16 at 21:00 Neomycin/ Polymyxin/ Bacitracin (Neosporin Topical Oint) 1 applic DAILY TOP Last administered on 10/11/16t 08:30; Admin Dose 1 APPLIC; Start 10/11/16 at 09:00 Assessment/Plan Additional Assessment/Plan Rehab- SUPERVISOR STONE infarct CVA Excellent progress with rehab. Family able to demonstrate safe carry over of technique. ONC- adenoca-s.p resection-continue current care - urinary retention, improving, with decreasing PVR DM2 anemia SHEILA MARIE MD Oct 11, 2016 10:50
--- NOTE | 2016-10-11 11:41 | CONS ---
Date/Time of Note Date/Time of Note DATE: 10/11/16 TIME: 11:40 Consult Date/Type/Reason Admit Date/Time Sep 26, 2016 at 17:15 Type of Consultation: internal medicine Subjective Patient remains stable this morning continues physical therapy Objective Vital Signs Date Time Temp Pulse Resp B/P Pulse Ox O2 Delivery O2 Flow Rate FiO2 10/11/16 07:37 98.1 89 18 131/62 97 Intake and Output 10/10/16 10/10/16 10/11/16 15:00 23:00 07:00 Intake Total 1200 ml 500 ml 800 ml Output Total 300 ml 300 ml 2250 ml Balance 900 ml 200 ml -1450 ml Exam OBJECTIVE: Well-nourished well-developed gentleman comfortable at rest VITAL SIGNS: As above NECK: Supple. No JVD or lymphadenopathy. CARDIAC: S1, S2, no added sounds or murmurs. CHEST: Diminished air entry bilaterally. ABDOMEN: Soft, nontender. No guarding or rebound. Midline abdominal incision EXTREMITIES: No cyanosis, clubbing, edema. NEUROLOGIC: Hemiplegia Results/Medications Result Diagram: 10/09/16 1151 10/09/16 1151 Results 24 hrs Laboratory Tests Test 10/10/16 11:52 10/10/16 17:20 10/10/16 20:20 10/11/16 07:54 Bedside Glucose 146 160 99 103 Medications Current Medications Aspirin (Aspirin) 81 mg DAILY PO Last administered on 10/11/16 08:30; Admin Dose 81 MG; Start 09/27/16 at 09:00 Acetaminophen (Tylenol Tab) 650 mg Q6H PRN PO PAIN LEVEL 1-3 OR FEVER Last administered on 10/11/16 05:25; Admin Dose 650 MG; Start 09/26/16 at 19:00 Magnesium Hydroxide (Milk Of Mag) 30 ml DAILY PRN PO CONSTIPATION; Start at 19:00 Bisacodyl (Dulcolax) 5 mg DAILY PRN PO CONSTIPATION; Start 09/26/16 at 19:00 Insulin Glargine (Lantus) 8 unit DAILY@20 SC Last administered on 10/10/16 20: 23; Admin Dose 8 UNIT; Start 09/26/16 at 20:00 Atorvastatin Calcium (Lipitor) 20 mg QHS PO Last administered on 10/10/16 20:22 ; Admin Dose 20 MG; Start 09/26/16 at 21:00 Diagnostic Test (Pha) (Accucheck) 1 ea 02 XX ; Start 09/27/16 at 02:00 Miscellaneous Information 1 ea NOTE XX ; Start 09/27/16 at 09:00 Glucose (Glutose) 15 gm Q15M PRN PO DECREASED GLUCOSE; Start 09/26/16 at 19:00 Glucose (Glutose) 22.5 gm Q15M PRN PO DECREASED GLUCOSE; Start 09/26/16 at 19: 00 Dextrose (D50w Syringe) 25 ml Q15M PRN IV DECREASED GLUCOSE; Start 09/26/16 at 19:00 Dextrose (D50w Syringe) 50 ml Q15M PRN IV DECREASED GLUCOSE; Start 09/26/16 at 19:00 Glucose (Glutose) 15 gm Q15M PRN BUCCAL DECREASED GLUCOSE; Start 09/26/16 at 19 :00 Losartan Potassium (Cozaar) 50 mg BID PO Last administered on 10/11/16 08:30; Admin Dose 50 MG; Start 09/26/16 at 21:00 Nifedipine (Procardia Xl) 60 mg BID PO Last administered on 10/11/16 08:30; Admin Dose 60 MG; Start 09/26/16 at 21:00 Pantoprazole (Protonix Tab) 40 mg BID@06,18 PO Last administered on 10/11/16 05 :25; Admin Dose 40 MG; Start 09/26/16 at 18:00 Enoxaparin Sodium (Lovenox) 85 mg Q24H SC Last administered on 10/11/16 08:29; Admin Dose 85 MG; Start 09/27/16 at 09:00 Zolpidem Tartrate (Ambien) 5 mg HS PRN PO INSOMNIA; Start 09/26/16 at 19:00 Metronidazole (Flagyl) 500 mg Q8 PO Last administered on 10/11/16 05:25; Admin Dose 500 MG; Start 09/26/16 at 22:00 Ferrous Sulfate (Ferrous Sulfate (Ec)) 325 mg BID PO Last administered on 08:30; Admin Dose 325 MG; Start 09/26/16 at 21:00 Hydralazine HCl (Apresoline) 25 mg Q8 PO Last administered on 10/11/16 05:25; Admin Dose 25 MG; Start 09/26/16 at 22:00 Folic Acid (Folic Acid) 1 mg DAILY PO Last administered on 10/11/16 08:31; Admin Dose 1 MG; Start 09/27/16 at 09:00 Tamsulosin HCl (Flomax) 0.4 mg BID PO Last administered on 10/11/16 08:31; Admin Dose 0.4 MG; Start 09/28/16 at 21:00 Neomycin/ Polymyxin/ Bacitracin (Neosporin Topical Oint) 1 applic DAILY TOP Last administered on 10/11/16 08:30; Admin Dose 1 APPLIC; Start 10/11/16 at 09:00 Assessment/Plan Chief Complaint/Hosp Course IMPRESSION 1. Recent cerebrovascular accident. 2. Recent diagnosis of adenocarcinoma with sigmoid resection. Mild drainage from abdominal wound 3. History of hypertension. 4. History of neurocysticercosis. 5. Urinary retention now voiding without Duque catheter PLAN: 1. Continue aspiration precautions 2. Continue physical therapy. 3. Hematology/oncology recommendations. Family declined conventional chemotherapy 4. DVT GI prophylaxis 5. Continue urology recommendations with straight catheter as needed Disposition Discharge planning Problems: FAHAD BARDALES [facility], [facility] Oct 11, 2016 11:41
--- NOTE | 2016-10-11 13:58 | PN ---
DATE: 10/11/2016 SUBJECTIVE: Urinary retention. GENERAL: Patient is more alert today and that he is getting speech therapy and he has been voiding. OBJECTIVE: VITAL SIGNS: His temperature is 98.1, blood pressure 131/62, pulse 89, respiration 18. ABDOMEN: Soft. He voided twice today, first time 350 mL and his postvoid residual was 187, second time he voided 400 mL and the postvoid residual was 130; therefore, not requiring any straight dorothea terization. SOCIAL HISTORY: He is already on tamsulosin 0.4 mg twice a day. PLAN: To continue the tamsulosin and continue to check his postvoid residual, and if it goes above 300, do straight catheterization on him. Dictated By: SUSAN MERINO/ABDOULAYE Conf#: [id number] DID#: [id number]
--- NOTE | 2016-10-11 18:01 | PN ---
DATE: The patient is coming along nicely status post low anterior resection. He is scheduled for discharg e later in the week. I have been asked to see the patient in regards to his incision. The incision is clean and healing well. There is a 2 cm long skin split of 5 mm. The fascia below is intact. PLAN: This can easily be treated with daily Neosporin dressings. Full resolution is expected. The re are no further surgical recommendations. Dictated By: MECCA DE LEON/ABDOULAYE Conf#: [id number] DID#: [id number]
--- NOTE | 2016-10-11 19:33 | PN ---
DATE: 10/11/2016 PSYCHOLOGY -- INDIVIDUAL SESSION -- [id number] This is a followup on a patient who was seen last week. The patient was seen sitting up in his whee lchair. The patient reports that he is not as depressed as he was last week. The patient reports t hat he is feeling better and stronger. The patient is most motivated to get better and return home. The patient is set up to be discharged tomorrow. The patient is feeling positive about this. I e ncouraged the patient to continue to work on his physical and emotional health. Dictated By: TAYLOR ASHBY PHD RK/ABDOULAYE Conf#: [id number] DID#: [id number] CC: SHEILA MARIE MD;*End*
[2016-10-11 20:11] VITALS: BP 141/69; RESP 18
[2016-10-11] MEDS: INSULIN GLARGINE [LANtus] 3 ML PEN SC SCH (21:12)
[2016-10-11] MEDS: ATORVASTATIN 20 MG TAB PO SCH (21:28)
[2016-10-12] MEDS: ACCUCHECK AT 2AM (Patients on SS coverage) XX SCH (02:00)
[2016-10-12] MEDS: metroNIDAZOLE 500 MG TAB PO SCH (06:24)
[2016-10-12] MEDS: PANTOPRAZOLE (EC) 40 MG TAB PO SCH (06:24)
[2016-10-12] MEDS: NEOMYC/POLYMYX/BACIT 30 GM OINT TOP SCH ×2 (06:37→08:13)
[2016-10-12 07:30] VITALS: BP 148/72; RESP 18
[2016-10-12] MEDS: INSULIN ASPART [NOVOLOG] 3 ML PEN SC SCH ×4 (07:35→12:46)
[2016-10-12] MEDS: ACETAMINOPHEN 325 MG TAB PO PRN (08:11)
[2016-10-12] MEDS: ASPIRIN 81 MG TAB PO SCH (08:11)
[2016-10-12] MEDS: TAMSULOSIN (SR) 0.4 MG CAP PO SCH (08:12)
[2016-10-12] MEDS: LOSARTAN 50 MG TAB PO SCH (08:12)
[2016-10-12] MEDS: FOLIC ACID 1 MG TAB PO SCH (08:12)
[2016-10-12] MEDS: FERROUS SULFATE (EC) 325 MG TAB PO SCH (08:12)
[2016-10-12] MEDS: NIFEdipine (XL) 60 MG TAB PO SCH (08:12)
[2016-10-12] MEDS: ENOXAPARIN 100 MG/ML SYG SC SCH (08:15)
--- NOTE | 2016-10-12 13:07 | CONS ---
Date/Time of Note Date/Time of Note DATE: 10/12/16 TIME: 13:06 Consult Date/Type/Reason Admit Date/Time Sep 26, 2016 at 17:15 Type of Consultation: internal medicine Subjective Patient comfortable this morning no new events Objective Vital Signs Date Time Temp Pulse Resp B/P Pulse Ox O2 Delivery O2 Flow Rate FiO2 10/12/16 07:30 97.9 68 18 148/72 98 Intake and Output 10/11/16 10/11/16 10/12/16 15:00 23:00 07:00 Intake Total 1200 ml 1600 ml 360 ml Output Total 1900 ml 900 ml Balance 1200 ml -300 ml -540 ml Exam OBJECTIVE: Well-nourished well-developed gentleman comfortable at rest VITAL SIGNS: As above NECK: Supple. No JVD or lymphadenopathy. CARDIAC: S1, S2, no added sounds or murmurs. CHEST: Diminished air entry bilaterally. ABDOMEN: Soft, nontender. No guarding or rebound. Midline abdominal incision EXTREMITIES: No cyanosis, clubbing, edema. NEUROLOGIC: Hemiplegia Results/Medications Result Diagram: 10/09/16 1151 10/09/16 1151 Results 24 hrs Laboratory Tests Test 10/11/16 17:17 10/11/16 20:55 10/12/16 07:41 10/12/16 12:00 Bedside Glucose 144 97 105 157 Medications Current Medications Aspirin (Aspirin) 81 mg DAILY PO Last administered on 10/12/16 08:11; Admin Dose 81 MG; Start 09/27/16 at 09:00 Acetaminophen (Tylenol Tab) 650 mg Q6H PRN PO PAIN LEVEL 1-3 OR FEVER Last administered on 10/12/16 08:11; Admin Dose 650 MG; Start 09/26/16 at 19:00 Magnesium Hydroxide (Milk Of Mag) 30 ml DAILY PRN PO CONSTIPATION; Start at 19:00 Bisacodyl (Dulcolax) 5 mg DAILY PRN PO CONSTIPATION; Start 09/26/16 at 19:00 Insulin Glargine (Lantus) 8 unit DAILY@20 SC Last administered on 10/11/16 21: 12; Admin Dose 8 UNIT; Start 09/26/16 at 20:00 Atorvastatin Calcium (Lipitor) 20 mg QHS PO Last administered on 10/11/16 21:28 ; Admin Dose 20 MG; Start 09/26/16 at 21:00 Diagnostic Test (Pha) (Accucheck) 1 ea 02 XX ; Start 09/27/16 at 02:00 Miscellaneous Information 1 ea NOTE XX ; Start 09/27/16 at 09:00 Glucose (Glutose) 15 gm Q15M PRN PO DECREASED GLUCOSE; Start 09/26/16 at 19:00 Glucose (Glutose) 22.5 gm Q15M PRN PO DECREASED GLUCOSE; Start 09/26/16 at 19: 00 Dextrose (D50w Syringe) 25 ml Q15M PRN IV DECREASED GLUCOSE; Start 09/26/16 at 19:00 Dextrose (D50w Syringe) 50 ml Q15M PRN IV DECREASED GLUCOSE; Start 09/26/16 at 19:00 Glucose (Glutose) 15 gm Q15M PRN BUCCAL DECREASED GLUCOSE; Start 09/26/16 at 19 :00 Losartan Potassium (Cozaar) 50 mg BID PO Last administered on 10/12/16 08:12; Admin Dose 50 MG; Start 09/26/16 at 21:00 Nifedipine (Procardia Xl) 60 mg BID PO Last administered on 10/12/16 08:12; Admin Dose 60 MG; Start 09/26/16 at 21:00 Pantoprazole (Protonix Tab) 40 mg BID@,18 PO Last administered on 10/12/16 06 :24; Admin Dose 40 MG; Start 09/26/16 at 18:00 Enoxaparin Sodium (Lovenox) 85 mg Q24H SC Last administered on 10/12/16 08:15; Admin Dose 85 MG; Start 09/27/16 at 09:00 Zolpidem Tartrate (Ambien) 5 mg HS PRN PO INSOMNIA; Start 09/26/16 at 19:00 Metronidazole (Flagyl) 500 mg Q8 PO Last administered on 10/12/16 06:24; Admin Dose 500 MG; Start 09/26/16 at 22:00 Ferrous Sulfate (Ferrous Sulfate (Ec)) 325 mg BID PO Last administered on 08:12; Admin Dose 325 MG; Start 09/26/16 at 21:00 Hydralazine HCl (Apresoline) 25 mg Q8 PO Last administered on 10/12/16 06:24; Admin Dose 25 MG; Start 09/26/16 at 22:00 Folic Acid (Folic Acid) 1 mg DAILY PO Last administered on 10/12/16 08:12; Admin Dose 1 MG; Start 09/27/16 at 09:00 Tamsulosin HCl (Flomax) 0.4 mg BID PO Last administered on 10/12/16 08:12; Admin Dose 0.4 MG; Start 09/28/16 at 21:00 Neomycin/ Polymyxin/ Bacitracin (Neosporin Topical Oint) 1 applic DAILY TOP Last administered on 10/12/16 08:13; Admin Dose 1 APPLIC; Start 10/11/16 at 09:00 Assessment/Plan Chief Complaint/Hosp Course IMPRESSION 1. Recent cerebrovascular accident. 2. Recent diagnosis of adenocarcinoma with sigmoid resection. Mild drainage from abdominal wound 3. History of hypertension. 4. History of neurocysticercosis. 5. Urinary retention now voiding without Duque catheter PLAN: 1. Stop antibiotics 2. Stop Lovenox 3. Discharge planning Follow-up with primary care physician Problems: FAHAD BARDALES MD, [facility] Oct 12, 2016 13:07
--- NOTE | 2016-10-17 11:24 | DS ---
DATE OF ADMISSION: 09/26/2016 DATE OF DISCHARGE: 10/12/2016 ADMISSION DIAGNOSES: 1. Posterior cerebral artery infarct cerebrovascular accident. 2. Adenocarcinoma of the colon, status post resection. 3. Hypertension. 4. Diabetes mellitus type 2. 5. Dyslipidemia. 6. Anemia. 7. Status post Clostridium difficile. 8. Impairments in self-care, mobility and cognition. DISCHARGE DIAGNOSES: 1. Posterior cerebral artery infarct cerebrovascular accident. 2. Adenocarcinoma of the colon, status post resection. 3. Hypertension. 4. Diabetes mellitus type 2. 5. Dyslipidemia. 6. Anemia. 7. Status post Clostridium difficile. 8. Improvements in self-care, mobility and cognition. HOSPITAL COURSE: The patient was admitted for comprehensive interdisciplinary acute rehab and made excellent functional gains during the course of the stay. The patient progressed from an initial ma ximal assist for self-care and mobility tasks and progressed to the point of standby assist to super vised for self-care and mobility including ambulating over 300 feet with the use of a front-wheel wa lker. The patient was followed closely with regards to his abdominal wall wound and was cleared for discharge by surgery. The patient was also noted to have urinary retention and was followed closel y by urology, with good improvement with lowering PVRs by discharge. The patient's family was train ed and instructed with regards to is self-care and mobility, I and O catheterizations, patient saf ety and medications. DISCHARGE MEDICATIONS: Per the medication reconciliation sheet. CONDITION ON DISCHARGE: Stable. Dictated By: SHEILA FRANKEL/ABDOULAYE Conf#: [id number] DID#: [id number]
== END 2016-10-12 13:00 | disposition home health service (06) | DRG 56 ==
LOC: VRC 17:15
PROVIDERS: ADMIT Physical Medicine & Rehabilitation; ATTEND Internal Medicine Pulmonary Disease
DX: I69.991 Dysphagia following unspecified cerebrovascular disease (principal); I63.9 Cerebral infarction, unspecified; C77.9 Secondary and unspecified malignant neoplasm of lymph node, unspecified; R13.10 Dysphagia, unspecified; N31.8 Other neuromuscular dysfunction of bladder; C18.7 Malignant neoplasm of sigmoid colon; C18.9 Malignant neoplasm of colon, unspecified; D64.9 Anemia, unspecified; R53.1 Weakness; R41.89 Other symptoms and signs involving cognitive functions and awareness; E11.9 Type 2 diabetes mellitus without complications; Z79.4 Long term (current) use of insulin; E78.5 Hyperlipidemia, unspecified; Z79.82 Long term (current) use of aspirin; Z87.891 Personal history of nicotine dependence; N40.1 Benign prostatic hyperplasia with lower urinary tract symptoms; R33.8 Other retention of urine; F06.31 Mood disorder due to known physiological condition with depressive features
CPT/HCPCS: 80048; 80053; 81001; 81003; 82962; 85025; 87081; 87086; 92507; 92523; 92526; 92610; 97110; 97112; 97116; 97150; 97163; 97167; 97530; 97535; A4310; J1650; J1815; J2916

== ENCOUNTER 2018-07-24 17:42 | Inpatient (IN) | payer MEDICARE, OTHER ==
[~2018-07-24] VITALS: Ht 167.6 cm; Wt 75.5 kg
[~2018-07-24 17:42] MED LIST changes: -ASPI-664 PO; +ASPI-817 PO; -CLON-379 PO; -FELO10TA PO; +LOPE2CAP PO; -LOSA50TA6 PO; -METF850T PO; +ONDA4TAB14 PO
[2018-07-24 20:00] VITALS: Ht 167.6 cm; Wt 75.5 kg
[2018-07-24 20:04] VITALS: BP 165/43; PULSE 73; RESP 18
[2018-07-24] MEDS ORDERED: GLUCAGON 1 MG INJ IM PRN (21:01)
[2018-07-24] MEDS ORDERED: hydrALAzine 20 MG INJ IV PRN (21:01)
[2018-07-24] MEDS ORDERED: ALBUTEROL/IPRATROPIUM (NEB) 3 ML AMP HHN PRN (21:01)
[2018-07-24] MEDS ORDERED: TAMSULOSIN (SR) 0.4 MG CAP PO SCH (21:01)
[2018-07-24] MEDS ORDERED: GLUCOSE GEL 15 GRAM TUBE BUCCAL PRN (21:01)
[2018-07-24] MEDS ORDERED: DEXTROSE 50% 50 ML SYRINGE IV PRN ×2 (21:01)
[2018-07-24] MEDS ORDERED: LOSARTAN 50 MG TAB PO SCH (21:01)
[2018-07-24] MEDS ORDERED: GLUCOSE GEL 15 GRAM TUBE PO PRN ×2 (21:01)
[2018-07-24] MEDS ORDERED: ONDANSETRON 4 MG INJ IV PRN (21:01)
[2018-07-24] MEDS ORDERED: PANTOPRAZOLE 40 MG INJ IV SCH (21:01)
[2018-07-24] MEDS ORDERED: NACL 0.9% 3 ML SYG IV SCH (21:01)
[2018-07-24] MEDS ORDERED: ATORVASTATIN 20 MG TAB PO SCH (21:01)
[2018-07-24] MEDS ORDERED: ENOXAPARIN 40 MG/0.4 ML SYG SC SCH (21:01)
[2018-07-24] MEDS ORDERED: ACETAMINOPHEN 325 MG TAB PO PRN (21:01)
[2018-07-24] MEDS ORDERED: HYDROmorphONE 0.5 MG/0.5 ML SYG IV PRN (21:01)
[2018-07-24] MEDS ORDERED: AMLODIPINE 5 MG TAB PO SCH (21:01)
[2018-07-24] MEDS: HYDROCODONE/APAP (5/325) TAB PO PRN (22:14)
[2018-07-24] MEDS: TAMSULOSIN (SR) 0.4 MG CAP PO SCH (22:15)
[2018-07-24] MEDS: LOSARTAN 50 MG TAB PO SCH (22:16)
[2018-07-24] MEDS: AMLODIPINE 5 MG TAB PO SCH (22:17)
[2018-07-24] MEDS: ATORVASTATIN 20 MG TAB PO SCH (22:17)
[2018-07-25] MEDS ORDERED: ZOLPIDEM 5 MG TAB PO ONE (02:18)
[2018-07-25 03:00] VITALS: BP 125/59; PULSE 90; RESP 16
[2018-07-25] MEDS ORDERED: BISACODYL 10 MG SUPP PR PRN (05:00)
[2018-07-25] MEDS ORDERED: LACTULOSE 30ML CUP PO PRN (05:00)
[2018-07-25] MEDS ORDERED: MAGNESIUM HYDROXIDE 30ML CUP PO PRN (05:00)
[2018-07-25] MEDS ORDERED: PANTOPRAZOLE (EC) 40 MG TAB PO SCH (06:00)
[2018-07-25 07:00] VITALS: BP 134/66; PULSE 101; RESP 18
--- NOTE | 2018-07-25 07:30 | NUR ---
Pt got admitted on 07/24/18 around 1845 hours, report received from Bushra DUBON to follow up admission. Called to get admission orders and notified . Medication reconciliation reviewed with MD, order read back and clarified. No issues found out. Pt is AAO x2 to 3 times, confused at times, kept on fall precautions. Admission assessment done. Continent for bladder and bowel, unable to empty his bladder completely, retention noted. made aware regarding retention and bladder scan order followed by standing protocol. O330am pt unable to void, restless and uncomfortable. Bladder scan checked it was 494 ml and straight cath done and removed about 500 ml light jairon color urine, no BM noted. Pt slept well after the straight cath and sleeping pill ambien 10mg. Pt able to turn position by self, pt's at bedside. Hourly rounding done and patient care needs met. Bed alarm activated for safety, call light and bedside table within reach.
[2018-07-25] MEDS: HYDROCODONE/APAP (5/325) TAB PO PRN ×2 (08:40→21:13)
[2018-07-25] MEDS: AMLODIPINE 5 MG TAB PO SCH ×2 (08:42→21:13)
[2018-07-25] MEDS: LOSARTAN 50 MG TAB PO SCH ×2 (08:42→21:13)
[2018-07-25] MEDS: ASPIRIN 81 MG TAB PO SCH (08:42)
[2018-07-25] MEDS: DOCUSATE SODIUM 250 MG CAP PO SCH (08:42)
[2018-07-25] MEDS: FOLIC ACID 1 MG TAB PO SCH (08:42)
--- NOTE | 2018-07-25 09:16 | PN ---
Date/Time of Note Date/Time of Note DATE: 07/25/18 TIME: 09:12 Assessment/Plan VTE Prophylaxis Risk score (from Ns)>0 risk: 6 SCD applied (from Ns): No SCD contraindicated: low risk/ambulating Pharmacological prophylaxis: other (aspirin) Lines/Catheters IV Catheter Type (from Nrs): PICC Line Central line still needed: Yes Urinary Cath still in place: No Assessment/Plan Assessment/Plan Pt is weak but able to transfer with help. He needs to convalesce before chemotherapy or RT could be considered. Encouraged to work with Rehab. Result Diagram: 07/25/18700 Results 24hrs Laboratory Tests Test 07/24/18 22:30 07/25/18 07:01 Urine Color YELLOW Urine Clarity CLEAR Urine pH 6.0 Urine Specific [place] 1.015 Urine Ketones NEGATIVE Urine Nitrite NEGATIVE Urine Bilirubin NEGATIVE Urine Urobilinogen NEGATIVE Urine Leukocyte Esterase NEGATIVE Urine Microscopic RBC > 182 H Urine Microscopic WBC 5 Urine Bacteria FEW A Urine Hemoglobin 3+ H Urine Glucose 1+ H Urine Total Protein 2+ H White Blood Count 8.2 Red Blood Count 3.67 L Hemoglobin 11.4 L Hematocrit 33.6 L Mean Corpuscular Volume 91.6 Mean Corpuscular Hemoglobin 31.1 Mean Corpuscular Hemoglobin Concent 33.9 Red Cell Distribution Width 13.9 Platelet Count 215 Mean Platelet Volume 10.8 H Immature Granulocytes % 0.700 H Neutrophils % 70.4 Lymphocytes % 20.2 Monocytes % 5.9 Eosinophils % 2.3 Basophils % 0.5 Nucleated Red Blood Cells % 0.0 Immature Granulocytes # 0.060 H Neutrophils # 5.7 Lymphocytes # 1.7 Monocytes # 0.5 Eosinophils # 0.2 Basophils # 0.0 Nucleated Red Blood Cells # 0.0 Subjective 24 Hr Interval Summary Free Text/Dictation Pt transferred to Rehab yesterday. He is weak but stable. Exam/Review of Systems Vital Signs Vitals Vital Signs Date Temp Pulse Resp B/P (MAP) Pulse Ox O2 O2 Flow FiO2 Time Delivery Rate 07/25/18 98.3 101 18 134/66 94 Room Air 07:00 (88) Intake and Output 07/24/18 07/24/18 07/25/18 1515:00 23:00 07:00 IntakeIntake Total 1100 ml OutputOutput Total 200 ml 1200 ml BalanceBalance -200 ml -100 ml Exam Constitutional: alert Head: normocephalic Eyes: other (pallor) ENMT: nl external ears & nose Neck: supple Respiratory: clear to auscultation Cardiovascular: regular rate and rhythm Gastrointestinal: other (ostomy noted) Neurological: other (diffusely weak) Medications Medications Current Medications Folic Acid (Folic Acid) 1 mg DAILY PO Last administered on 07/25/18 08:42; Admin Dose 1 MG; Start 07/24/18 at 21:01 Acetaminophen/ Hydrocodone Bitart ([place] (5/325)) 1 tab Q4H PRN PO MODERATE PAIN LEVEL 4-6 Last administered on 07/25/18 08:40; Admin Dose 1 TAB; Start 07/24/18 at 21:01 Aspirin (Aspirin) 81 mg DAILY PO Last administered on 07/25/18 08:42; Admin Dose 81 MG; Start 07/24/18 at 21:01 Docusate Sodium (Colace) 250 mg DAILY PO Last administered on 07/25/18 08:42; Admin Dose 250 MG; Start 07/24/18 at 21:01 Pantoprazole (Protonix Tab) 40 mg DAILY@06 PO Last administered on 07/25/18at 06:23; Admin Dose 40 MG; Start 07/25/18 at 06:00 Amlodipine Besylate (Norvasc) 5 mg BID PO Last administered on 07/25/18 08:42; Admin Dose 5 MG; Start 07/24/18 at 22:10 Atorvastatin Calcium (Lipitor) 20 mg QHS PO Last administered on 07/24/18 22:17; Admin Dose 20 MG; Start 07/24/18 at 22:10 Hydralazine HCl (Apresoline) 50 mg BID PO Last administered on 07/25/18 08:43; Admin Dose 50 MG; Start 07/24/18 at 22:11 Losartan Potassium (Cozaar) 50 mg BID PO Last administered on 07/25/18 08:42; Admin Dose 50 MG; Start 07/24/18 at 22:11 Tamsulosin HCl (Flomax) 0.4 mg HS PO Last administered on 07/24/18at 22:15; Admin Dose 0.4 MG; Start 07/24/18 at 22:11 Influenza Virus Vaccine Quadrival (Fluzone) 0.5 ml ONCE ONCE IM* ; Start 07/26/18 at 10:00; Stop 07/26/18 at 10:01 Magnesium Hydroxide (Milk Of Mag) 30 ml BID PRN PO CONSTIPATION; Start 07/25/18 at 05:00 Lactulose (Enulose) 20 gm DAILY PRN PO CONSTIPATION; Start 07/25/18 at 05:00 Bisacodyl (Dulcolax Supp) 10 mg DAILY PRN [place] CONSTIPATION; Start 07/25/18 at 05:00 BOBBY CABRAL MD Jul 25, 2018 09:16
--- NOTE | 2018-07-25 10:15 | NUR ---
PT LALI Pt is a 68 y/o, male, admitted to [facility] from home with c/o generalized weakness, diarrhea, nausea and vomiting. Underwent exploratory laparotomy and resection of severe colorectal anastomosis 07/20/18. Pt transferred to [facility] to continue rehabilitation and care. PMH: CVA 2 years ago, DM, neurocysticercosis, Htn, hyperlipidemia, sz disorder (last sz 5-6 years ago), sigmoid colon CA with resection of rectosigmoid junction 09/22/16. Pt and agreeable to PT lali. Educated them on role of PT, POC, goals, and safety. with good understanding but pt will need further reinforcement. PLOF: Lives in a 1-story house w/o entry steps with and children. Pt was modified indep. with household amb. using 4WW and supervised by when outdoors. Pt was modified indep. with feeding, grooming and toileting but assisted with showering and dressing. Owns FWW and 4WW. CLOF: See PT technical record Precautions: Fall risk, abd. precautions, colostomy bag, Macedonian-speaking, RLE weakness with R foot drag, h/o CVA Recommendations: manual w/c, commode, tub bench, HHPT and 24-hr assistance Progress toward goals with POC. Addendum: 07/26/18 at 1359 by GLENROY GARCÍA PT Short-term Goals: SBA bed mobility CGA transfers with FWW or 4WW CGA gait with FWW or 4WW x 50 ft SBA w/c mobility x 50 ft. Long-term Goals: Modified indep. bed mobility Supervised transfers with FWW or 4WW Supervised gait with FWW or 4WW x 150 ft Modified indep. w/c mobility x 150 ft.
--- NOTE | 2018-07-25 12:28 | NUR ---
Cesar Tillman was at bedside at 12:17pm and gave report regarding patient's condition. Updated also regarding episode of urinary retention and per MD put Duque Catheter in if there's another episode of retention needing for straight catheterization (In & Out cath).
--- NOTE | 2018-07-25 12:53 | HP ---
Date/Time of Note Date/Time of Note DATE: 07/25/18 TIME: 12:52 Assessment/Plan VTE Prophylaxis Risk score (from Ns)>0 risk: 6 SCD applied (from Ns): No SCD contraindicated: other Pharmacological prophylaxis: other Lines/Catheters IV Catheter Type (from Nrs): PICC Line Central line still needed: No Urinary Cath still in place: No Assessment/Plan Hospital Course Objective Physical exam General: Patient is laying in bed and answers questions appropriately Mentation: Patient is alert and oriented 4, Head: Normocephalic atraumatic Eyes: EOMI, pupils reactive to light Neck: Supple, nontender, midline Respiratory: Clear to auscultation bilaterally Cardiovascular: regular rate, no obvious murmurs Gastrointestinal: Mildly tender to palpation, bowel sounds heard. Neurological: Moves all extremities spontaneously Skin: Surgical site on abdomen, clean, dry Assessment and plan 68 yo M with hx of colon ca in the past who presented with Diarrhea with nausea/vomiting and subsequently finding new mass and after ex lap, found to be recurrent adenocarcinoma of the rectum. Recurrent adenocarcinoma of the rectum -Found on exploratory laparotomy during last admission, -Oncology is following patient and suggest follow-up with possible chemo and other intervention after rehab -Status post colostomy bag -Follow-up with surgery after rehab History of colon cancer -Recurrent colon cancer, patient has a history of refusing treatment in the past, possible okay with treatment going on the future, however will defer to oncology Acute urinary retention -We will attempt in and out straight caths, however may need to insert Duque catheter -We will try Flomax History of CVA -No significant residual deficits Hypertension -Continue home meds Dyslipidemia -Continue home meds Questionable remote seizure disorder -Monitor Disposition -In acute rehab unit. Result Diagram: 07/25/18 0701 07/25/18 07 Results 24hrs Laboratory Tests Test 07/24/18 22:30 07/25/18 07:01 Urine Color YELLOW Urine Clarity CLEAR Urine pH 6.0 Urine Specific [place] 1.015 Urine Ketones NEGATIVE Urine Nitrite NEGATIVE Urine Bilirubin NEGATIVE Urine Urobilinogen NEGATIVE Urine Leukocyte Esterase NEGATIVE Urine Microscopic RBC > 182 H Urine Microscopic WBC 5 Urine Bacteria FEW A Urine Hemoglobin 3+ H Urine Glucose 1+ H Urine Total Protein 2+ H White Blood Count 8.2 Red Blood Count 3.67 L Hemoglobin 11.4 L Hematocrit 33.6 L Mean Corpuscular Volume 91.6 Mean Corpuscular Hemoglobin 31.1 Mean Corpuscular Hemoglobin Concent 33.9 Red Cell Distribution Width 13.9 Platelet Count 215 Mean Platelet Volume 10.8 H Immature Granulocytes % 0.700 H Neutrophils % 70.4 Lymphocytes % 20.2 Monocytes % 5.9 Eosinophils % 2.3 Basophils % 0.5 Nucleated Red Blood Cells % 0.0 Immature Granulocytes # 0.060 H Neutrophils # 5.7 Lymphocytes # 1.7 Monocytes # 0.5 Eosinophils # 0.2 Basophils # 0.0 Nucleated Red Blood Cells # 0.0 Sodium Level 135 Potassium Level 3.2 L Chloride Level 101 Carbon Dioxide Level 25 Anion Gap 9 Blood Urea Nitrogen 7 Creatinine 0.66 Est Glomerular Filtrat Rate mL/min > 60 Glucose Level 134 Calcium Level 8.7 Total Bilirubin 0.2 Direct Bilirubin 0.00 Indirect Bilirubin 0.2 Aspartate Amino Transf (AST/SGOT) 21 Alanine Aminotransferase (ALT/SGPT) 14 Alkaline Phosphatase 84 Total Protein 5.6 L Albumin 2.8 L Globulin 2.80 Albumin/Globulin Ratio 1.00 HPI/ROS Admit Date/Time Admit Date/Time Jul 24, 2018 at 18:47 Hx of Present Illness Patient is a male with past medical history significant for colorectal carcinoma s/p resection 2017 ,CVA, this lipidemia, hypertension, remote seizure who originally presented to [facility] with abdominal pain, nausea, vomiting and underwent colonoscopy. A mass was found on colonoscopy and general surgery was subsequently consulted. Patient eventually underwent exploratory laparotomy and eventually had Babar procedure with end colostomy placement. Patient is doing well and only has some mild urinary retention issues. Patient denies chest pain, shortness of breath, leg pain, new abdominal pain, headache PMH/Family/Social Past Medical History Medications Current Medications Folic Acid (Folic Acid) 1 mg DAILY PO Last administered on 07/25/18 08:42; Admin Dose 1 MG; Start 07/24/18 at 21:01 Acetaminophen/ Hydrocodone Bitart ([place] (5/325)) 1 tab Q4H PRN PO MODERATE PAIN LEVEL 4-6 Last administered on 07/25/18 08:40; Admin Dose 1 TAB; Start 07/24/18 at 21:01 Aspirin (Aspirin) 81 mg DAILY PO Last administered on 07/25/18 08:42; Admin Dose 81 MG; Start 07/24/18 at 21:01 Docusate Sodium (Colace) 250 mg DAILY PO Last administered on 07/25/18at 08:42; Admin Dose 250 MG; Start 07/24/18 at 21:01 Pantoprazole (Protonix Tab) 40 mg DAILY@06 PO Last administered on 07/25/18at 06:23; Admin Dose 40 MG; Start 07/25/18 at 06:00 Amlodipine Besylate (Norvasc) 5 mg BID PO Last administered on 07/25/18at 08:42; Admin Dose 5 MG; Start 07/24/18 at 22:10 Atorvastatin Calcium (Lipitor) 20 mg QHS PO Last administered on 07/24/18at 22:17; Admin Dose 20 MG; Start 07/24/18 at 22:10 Hydralazine HCl (Apresoline) 50 mg BID PO Last administered on 07/25/18at 08:43; Admin Dose 50 MG; Start 07/24/18 at 22:11 Losartan Potassium (Cozaar) 50 mg BID PO Last administered on 07/25/18at 08:42; Admin Dose 50 MG; Start 07/24/18 at 22:11 Tamsulosin HCl (Flomax) 0.4 mg HS PO Last administered on 07/24/18at 22:15; Admin Dose 0.4 MG; Start 07/24/18 at 22:11 Influenza Virus Vaccine Quadrival (Fluzone) 0.5 ml ONCE ONCE IM* ; Start 07/26/18 at 10:00; Stop 07/26/18 at 10:01 Magnesium Hydroxide (Milk Of Mag) 30 ml BID PRN PO CONSTIPATION; Start 07/25/18 at 05:00 Lactulose (Enulose) 20 gm DAILY PRN PO CONSTIPATION; Start 07/25/18 at 05:00 Bisacodyl (Dulcolax Supp) 10 mg DAILY PRN [place] CONSTIPATION; Start 07/25/18 at 05:00 Acetaminophen/ Hydrocodone Bitart ([place] (5/325)) 2 tab Q4H PRN PO SEVERE PAIN LEVEL 7-10; Start 07/25/18 at 12:30 Coded Allergies: No Known Allergy (Unverified , 07/13/18) Past Surgical History Past Surgical Hx: bowel resection, endoscopy Family History Significant Family History: no pertinent family hx Social History Smoking Status: Former smoker Exam/Review of Systems Vital Signs Vitals Vital Signs Date Temp Pulse Resp B/P (MAP) Pulse Ox O2 O2 Flow FiO2 Time Delivery Rate 07/25/18 98.3 101 18 134/66 94 Room Air 07:00 (88) Intake and Output 07/24/18 07/24/18 07/25/18 1515:00 23:00 07:00 IntakeIntake Total 1100 ml OutputOutput Total 200 ml 1200 ml BalanceBalance -200 ml -100 ml BRIA CHAVIRA Jul 25, 2018 12:53
[2018-07-25 14:00] VITALS: BP 130/60; PULSE 91; RESP 18
--- NOTE | 2018-07-25 14:17 | CONS ---
DATE OF ADMISSION: 07/24/2018 DATE OF CONSULTATION: 07/25/2018 TYPE OF CONSULTATION: Rehabilitation post-admission physician evaluation. REHABILITATION IMPAIRMENT CATEGORY: Debility secondary to large bowel obstruction status post resect ion and colostomy. ACTIVE COMORBIDITIES: 1. Acute pain syndrome. 2. Acute kidney injury. 3. History of CVA. 4. History of seizure disorder. 5. Hyperlipidemia. 6. Impairments in self-care and mobility. HISTORY OF PRESENT ILLNESS: The patient is a pleasant 68-year-old gentleman with a complicated medic al history including colon cancer, who was admitted with nausea, vomiting and abdominal pain. The pa tyler was noted to have a sigmoid mass, recurrent colon cancer and did undergo exploratory laparotomy , rectosigmoid resection and colostomy placement. The patient's hospital course has been notable for acute kidney injury, hypertension, urinary tract infection and significant impairments in self-care and mobility as compared to baseline. The patient has been cleared to transfer to the rehabilitation unit for comprehensive interdisciplinary rehab care. FUNCTIONAL HISTORY: Prior to recent events, he was independent in self-care tasks and mobility. Cur rently, he requires moderate assist for self-care and mobility tasks. I have reviewed the preadmission screen and the patient's current functional status is consistent wit h the preadmission screen. FAMILY AND SOCIAL HISTORY: The patient lives at home with family with 2 stair steps to entryway and hopes to return there upon discharge. PAST MEDICAL HISTORY: 1. Colon carcinoma. 2. CVA. 3. Hypertension. 4. Hyperlipidemia. 5. Seizure disorder. CURRENT MEDICATIONS: 1. [place] p.r.n. 2. Protonix 40 mg p.o. daily. 3. Cozaar 50 mg p.o. b.i.d. 4. Flomax 0.4 mg p.o. at bedtime. 5. Norvasc 5 mg p.o. b.i.d. 6. Lipitor 20 mg p.o. at bedtime. 7. Folic acid 1 mg p.o. daily. ALLERGIES: THE PATIENT WITH NO KNOWN DRUG ALLERGIES. PHYSICAL EXAMINATION: VITAL SIGNS: The patient is currently afebrile with stable vital signs. HEENT: Extraocular motions are intact. Oropharynx is clear. NECK: Supple. LUNGS: Clear anteriorly. CARDIAC: S1, S2. ABDOMEN: With colostomy site currently clean. The abdomen is soft, nontender. Positive bowel sound s. NEUROLOGIC: He is awake and alert and oriented x3. He will follow simple 1-step commands. He demon strates antigravity strength in bilateral upper extremity and lower extremity. PLAN: The patient has been admitted for comprehensive interdisciplinary acute rehab and is anticipat ed to tolerate 3 hours of daily therapy in divided doses for at least 5/7 days a week. The treatment plan will include: 1. Physical therapy to focus on bed mobility, transfers and household ambulation with the goals of h aving the patient reach a standby assist level. 2. Occupational therapy to focus on hygiene, grooming, dressing, bathing and toileting activities wi th goal of having patient reach standby assist level. 3. Rehabilitation nursing for carryover of therapeutic interventions, the goal of continent of bowel and bladder and the goal of pain adequately managed on oral medications. REHABILITATION BARRIER: Colostomy. INTERVENTION FOR BARRIER: Colostomy care and training. ESTIMATED LENGTH OF STAY: 12 days. DISPOSITION GOAL: Home. I acknowledge that I performed a full physical examination on this patient within 24 hours of admissi on to the rehabilitation unit. I believe the patient is a good candidate for comprehensive interdisc iplinary rehab care and is anticipated to make reasonable goals in a reasonable period of time as out lined above. Dictated By: SHEILA FRANKEL/ABDOULAYE Conf#: [id number] DID#: [id number] CC: FAHAD BARDALES MD;*EndCC*
[2018-07-25] MEDS: PANTOPRAZOLE (EC) 40 MG TAB PO SCH (17:49)
--- NOTE | 2018-07-25 19:00 | NUR ---
1130 - colostomy care provided 1355 - received order from Dr. Alcala regarding dressing change, diane removal and wound consult, noted and carried out. 1620 - patient hasn't urinated in about 6 hours despite trying to use the urinal. Bladder distention and lower abdominal pain noted. Scanned patient's bladder with reading of 372. Duque catheter was inserted per Dr. Tamez's order. Procedure tolerated well. Patient alert, oriented and able to make needs known with complaints of pain during the shift and medicated with [place] 5/325mg 1 tab PO PRN Q4H; relief noted. Patient's remains at bedside Noted patient trying to get out of bed unassisted multiple times attempting to use the urinal and go to the toilet. Reiterated the importance of using the call button. Education provided to both patient and . Due medications given. Call light and bedside table placed within reach. Bed alarm activated for safety and placed on lowest position. Needs attended and anticipated. Will endorse to next shift.
[2018-07-25 19:29] VITALS: BP 140/65; PULSE 80; RESP 20
[2018-07-25] MEDS: ATORVASTATIN 20 MG TAB PO SCH (21:13)
[2018-07-25] MEDS: TAMSULOSIN (SR) 0.4 MG CAP PO SCH (21:14)
[2018-07-26] MEDS ORDERED: POTASSIUM CHLORIDE (SR) 20 MEQ TAB PO ONE (01:17)
[2018-07-26 02:00] VITALS: BP 144/61; PULSE 92; RESP 19
[2018-07-26] MEDS: HYDROCODONE/APAP (5/325) TAB PO PRN (02:45)
--- NOTE | 2018-07-26 06:00 | NUR ---
NOTED PT'S K=3.2, DR OCONNELL NOTIFIED, ORDERS NOTED AND CARRIED OUT. KCL 40MEQ PO WAS GIVEN. COLOSTOMY CARE DONE X 2. DRESSING CHANGED ON INCISION OF HIS ABDOMEN. KEPT DRY AND CLEAN. ENCOURAGE PT TO TURN AND REPOSITION. PT IS FORGETFUL AT TIMES. FALL PRECAUTION. BED ALARM ON. HOURLY ROUNDING MADE. WAS AT BEDSIDE.
[2018-07-26] MEDS: PANTOPRAZOLE (EC) 40 MG TAB PO SCH ×2 (06:35→16:55)
[2018-07-26 07:00] VITALS: BP 110/64; PULSE 83; RESP 16
--- NOTE | 2018-07-26 09:14 | NUR ---
Ostomy Care Consult: Patient is a male with past medical history significant for colorectal carcinoma s/p resection 2017 ,CVA, this lipidemia, hypertension, remote seizure who originally presented to [facility] with abdominal pain, nausea, vomiting and underwent colonoscopy. A mass was found on colonoscopy and general surgery was subsequently consulted. Patient eventually underwent exploratory laparotomy and eventually had Babar procedure with end colostomy placement. Ostomy care team consulted for: Ostomy teaching to be conducted by KATARZYNA on 07/29/18 between 10am-11am as discussed with patient sonParveen (phone: [phone]). Anticipated d/c will be 08/01/18. LING Kaba CM
[2018-07-26] MEDS: DOCUSATE SODIUM 250 MG CAP PO SCH (09:48)
[2018-07-26] MEDS: FOLIC ACID 1 MG TAB PO SCH (09:48)
[2018-07-26] MEDS: AMLODIPINE 5 MG TAB PO SCH ×2 (09:49→20:45)
[2018-07-26] MEDS: ASPIRIN 81 MG TAB PO SCH (09:49)
[2018-07-26] MEDS: LOSARTAN 50 MG TAB PO SCH ×2 (09:49→20:45)
[2018-07-26] MEDS: ENOXAPARIN 40 MG/0.4 ML SYG SC SCH (09:50)
--- NOTE | 2018-07-26 12:04 | NUR ---
Spoke to Parveen/patient's son & he said don't give flu vaccine. Offered 3x but they still refused 3x. Explained risks & benefits but they still refused.
--- NOTE | 2018-07-26 12:50 | PN ---
Date/Time of Note Date/Time of Note DATE: 07/26/18 TIME: 12:49 Subjective Comfortable. Objective Vital Signs Date Temp Pulse Resp B/P (MAP) Pulse Ox O2 O2 Flow FiO2 Time Delivery Rate 07/26/18 99.4 83 16 110/64 99 Room Air 07:00 (79) Intake and Output 07/25/18 07/25/18 07/26/18 1515:00 23:00 07:00 IntakeIntake Total 1600 ml OutputOutput Total 200 ml BalanceBalance -200 ml 1600 ml Exam [id number] cga ambulation Results/Medications Result Diagram: 07/25/18 0701 07/26/18 0606 Results 24 hrs Laboratory Tests Test 07/26/18 06:06 Sodium Level 134 L Potassium Level 3.3 L Chloride Level 101 Carbon Dioxide Level 26 Anion Gap 7 Blood Urea Nitrogen 8 Creatinine 0.72 Est Glomerular Filtrat Rate mL/min > 60 Glucose Level 119 Calcium Level 8.6 Medications Current Medications Folic Acid (Folic Acid) 1 mg DAILY PO Last administered on 07/26/18at 09:48; Admin Dose 1 MG; Start 07/24/18 at 21:01 Acetaminophen/ Hydrocodone Bitart ([place] (5/325)) 1 tab Q4H PRN PO MODERATE PAIN LEVEL 4-6 Last administered on 07/25/18at 08:40; Admin Dose 1 TAB; Start 07/24/18 at 21:01 Aspirin (Aspirin) 81 mg DAILY PO Last administered on 07/26/18at 09:49; Admin Dose 81 MG; Start 07/24/18 at 21:01 Docusate Sodium (Colace) 250 mg DAILY PO Last administered on 07/26/18at 09:48; Admin Dose 250 MG; Start 07/24/18 at 21:01 Amlodipine Besylate (Norvasc) 5 mg BID PO Last administered on 07/26/18 09:49; Admin Dose 5 MG; Start 07/24/18 at 22:10 Atorvastatin Calcium (Lipitor) 20 mg QHS PO Last administered on 07/25/18at 21: 13; Admin Dose 20 MG; Start 07/24/18 at 22:10 Hydralazine HCl (Apresoline) 50 mg BID PO Last administered on 07/26/18at 09:49; Admin Dose 50 MG; Start 07/24/18 at 22:11 Losartan Potassium (Cozaar) 50 mg BID PO Last administered on 07/26/18at 09:49; Admin Dose 50 MG; Start 07/24/18 at 22:11 Tamsulosin HCl (Flomax) 0.4 mg HS PO Last administered on 07/25/18at 21:14; Admin Dose 0.4 MG; Start 07/24/18 at 22:11 Magnesium Hydroxide (Milk Of Mag) 30 ml BID PRN PO CONSTIPATION; Start 07/25/18 at 05:00 Lactulose (Enulose) 20 gm DAILY PRN PO CONSTIPATION; Start 07/25/18 at 05:00 Bisacodyl (Dulcolax Supp) [address] CONSTIPATION; Start 07/25/18 at 05:00 Acetaminophen (Tylenol Tab) 650 mg Q6H PRN PO MILD PAIN(1-3)OR ELEVATED TEMP; Start 07/25/18 at 13:00 Enoxaparin Sodium (Lovenox) 40 mg DAILY [place] Last administered on 07/26/18at 09:50; Admin Dose 40 MG; Start 07/26/18 at 09:00 Pantoprazole (Protonix Tab) 40 mg BID@0600,1800 PO Last administered on 07/26/18at 06:35; Admin Dose 40 MG; Start 07/25/18 at 18:00 Assessment/Plan Additional Assessment/Plan Rehab- Debility secondary to large bowel obstruction status post resection and colostomy. Tolerating rehab program . Current status and goals reviewed with son, who is agreement with the treatment plan acute pain syndrome- improving. Acute kidney injury-improved History of CVA. History of seizure disorder. Hyperlipidemia. SHEILA MARIE MD Jul 26, 2018 12:50
[2018-07-26 14:37] VITALS: BP 126/58; PULSE 76; RESP 16
--- NOTE | 2018-07-26 14:44 | PN ---
Date/Time of Note Date/Time of Note DATE: 07/26/18 TIME: 14:44 Objective Vitals Vital Signs Date Temp Pulse Resp B/P (MAP) Pulse Ox O2 O2 Flow FiO2 Time Delivery Rate 07/26/18 97.5 76 16 126/58 97 Room Air 14:37 (80) Intake and Output 07/25/18 07/25/18 07/26/18 1515:00 23:00 07:00 IntakeIntake Total 1600 ml OutputOutput Total 200 ml BalanceBalance -200 ml 1600 ml Results Result Diagram: 07/25/18 0701 07/26/18 0606 Medications Medications Current Medications Folic Acid (Folic Acid) 1 mg DAILY PO Last administered on 07/26/18 09:48; Admin Dose 1 MG; Start 07/24/18 at 21:01 Acetaminophen/ Hydrocodone Bitart ([place] (5/325)) 1 tab Q4H PRN PO MODERATE PAIN LEVEL 4-6 Last administered on 07/25/18 08:40; Admin Dose 1 TAB; Start 07/24/18 at 21:01 Aspirin (Aspirin) 81 mg DAILY PO Last administered on 07/26/18 09:49; Admin Dose 81 MG; Start 07/24/18 at 21:01 Docusate Sodium (Colace) 250 mg DAILY PO Last administered on 07/26/18 09:48; Admin Dose 250 MG; Start 07/24/18 at 21:01 Amlodipine Besylate (Norvasc) 5 mg BID PO Last administered on 07/26/18 09:49; Admin Dose 5 MG; Start 07/24/18 at 22:10 Atorvastatin Calcium (Lipitor) 20 mg QHS PO Last administered on 07/25/18 21:13; Admin Dose 20 MG; Start 07/24/18 at 22:10 Hydralazine HCl (Apresoline) 50 mg BID PO Last administered on 07/26/18 09:49; Admin Dose 50 MG; Start 07/24/18 at 22:11 Losartan Potassium (Cozaar) 50 mg BID PO Last administered on 07/26/18 09:49; Admin Dose 50 MG; Start 07/24/18 at 22:11 Tamsulosin HCl (Flomax) 0.4 mg HS PO Last administered on 07/25/18 21:14; Admin Dose 0.4 MG; Start 07/24/18 at 22:11 Magnesium Hydroxide (Milk Of Mag) 30 ml BID PRN PO CONSTIPATION; Start 07/25/18 at 05:00 Lactulose (Enulose) 20 gm DAILY PRN PO CONSTIPATION; Start 07/25/18 at 05:00 Bisacodyl (Dulcolax Supp) 10 mg DAILY PRN [place] CONSTIPATION; Start 07/25/18 at 05:00 Acetaminophen (Tylenol Tab) 650 mg Q6H PRN PO MILD PAIN(1-3)OR ELEVATED TEMP; Start 07/25/18 at 13:00 Enoxaparin Sodium (Lovenox) 40 mg DAILY [place] Last administered on 07/26/18at 09:50; Admin Dose 40 MG; Start 07/26/18 at 09:00 Pantoprazole (Protonix Tab) 40 mg BID@0600,1800 PO Last administered on 07/26/18at 06:35; Admin Dose 40 MG; Start 07/25/18 at 18:00 VTE Prophylaxis Risk score (from Ns)>0 risk: 6 SCD applied (from Ns): No SCD contraindication: other Lines/Catheters IV Catheter Type: Duque in Place: No Assessment/Plan Hospital Course subjective no acute issues overnight Objective Physical exam General: Patient is laying in bed and answers questions appropriately Mentation: Patient is alert and oriented 4, Head: Normocephalic atraumatic Eyes: EOMI, pupils reactive to light Neck: Supple, nontender, midline Respiratory: Clear to auscultation bilaterally Cardiovascular: regular rate, no obvious murmurs Gastrointestinal: Mildly tender to palpation, bowel sounds heard. Neurological: Moves all extremities spontaneously Skin: Surgical site on abdomen, clean, dry Assessment and plan 68 yo M with hx of colon ca in the past who presented with Diarrhea with nausea/vomiting and subsequently finding new mass and after ex lap, found to be recurrent adenocarcinoma of the rectum. Recurrent adenocarcinoma of the rectum -Found on exploratory laparotomy during last admission, -Oncology is following patient and suggest follow-up with possible chemo and other intervention after rehab -Status post colostomy bag -Follow-up with surgery after rehab History of colon cancer -Recurrent colon cancer, patient has a history of refusing treatment in the past, possible okay with treatment going on the future, however will defer to oncology Acute urinary retention -We will attempt in and out straight caths, however may need to insert Duque catheter -We will try Flomax History of CVA -No significant residual deficits Hypertension -Continue home meds Dyslipidemia -Continue home meds Questionable remote seizure disorder -Monitor Disposition -In acute rehab unit. -patient's family requests patient not be given strong pain medication as he has mood changes BRIA CHAVIRA Jul 26, 2018 14:44
--- NOTE | 2018-07-26 17:00 | NUR ---
Patient in bed eating dinner accompanied by his son. Offered TV & educational materials for recreational activities. Alert, oriented x 3 with periods of confusion. No SOB. Denies pain. No adverse reaction noted with colostomy bag use. Kept clean & dry. All due meds given. Call light within reach. Bed alarm on & in low position. Kept comfortable.
[2018-07-26 20:06] VITALS: BP 148/68; PULSE 80; RESP 18
[2018-07-26] MEDS: ATORVASTATIN 20 MG TAB PO SCH (20:45)
[2018-07-26] MEDS: TAMSULOSIN (SR) 0.4 MG CAP PO SCH (20:45)
[2018-07-26] MEDS: ACETAMINOPHEN 325 MG TAB PO PRN (20:46)
[2018-07-27 02:00] VITALS: BP 132/64; PULSE 82; RESP 18
[2018-07-27] MEDS: HYDROCODONE/APAP (5/325) TAB PO PRN ×2 (02:12→17:33)
--- NOTE | 2018-07-27 05:49 | NUR ---
Received patient at 0330, resting in bed. No c/o pain. No distress. Assisted patient with colostomy care. Patient's need attended. Hourly rounds done. Bedside table and call light in reach. Family at bedside.
[2018-07-27] MEDS: PANTOPRAZOLE (EC) 40 MG TAB PO SCH ×2 (06:32→17:32)
[2018-07-27 07:30] VITALS: BP 153/69; PULSE 78; RESP 18
[2018-07-27] MEDS: ACETAMINOPHEN 325 MG TAB PO PRN ×2 (08:42→15:08)
[2018-07-27] MEDS: DOCUSATE SODIUM 250 MG CAP PO SCH (08:42)
[2018-07-27] MEDS: FOLIC ACID 1 MG TAB PO SCH (08:42)
[2018-07-27] MEDS: AMLODIPINE 5 MG TAB PO SCH ×2 (08:43→21:18)
[2018-07-27] MEDS: LOSARTAN 50 MG TAB PO SCH ×2 (08:43→21:18)
[2018-07-27] MEDS: ENOXAPARIN 40 MG/0.4 ML SYG SC SCH ×2 (08:43→10:18)
[2018-07-27] MEDS: ASPIRIN 81 MG TAB PO SCH (08:49)
--- NOTE | 2018-07-27 10:46 | NUR ---
Notified rest room matron of Dr Alcala that incision site is not yet healed & it has been 1 week only from date of surgery. Per rest room matron MD, wait for exactly 2 weeks which is on 08/03/18 & they can do staple removal outpatient. Noted & carried out.
[2018-07-27] MEDS ORDERED: POTASSIUM CHLORIDE 20 MEQ POWDER FOR ORAL SOLN PO ONE (11:00)
[2018-07-27] MEDS ORDERED: MAGNESIUM OXIDE 400 MG TAB PO ONE (11:00)
--- NOTE | 2018-07-27 12:38 | PN ---
Date/Time of Note Date/Time of Note DATE: 07/27/18 TIME: 12:38 Objective Vitals Vital Signs Date Temp Pulse Resp B/P (MAP) Pulse Ox O2 O2 Flow FiO2 Time Delivery Rate 07/27/18 97.8 82 18 132/64 96 Room Air 02:00 (86) Intake and Output 07/26/18 07/26/18 07/27/18 1414:59 22:59 06:59 IntakeIntake Total 200 ml 1900 ml 450 ml OutputOutput Total 600 ml BalanceBalance -400 ml 1900 ml 450 ml Results Result Diagram: 07/27/1881707/27/18817 Medications Medications Current Medications Folic Acid (Folic Acid) 1 mg DAILY PO Last administered on 07/27/18 08:42; Admin Dose 1 MG; Start 07/24/18 at 21:01 Acetaminophen/ Hydrocodone Bitart ([place] (5/325)) 1 tab Q4H PRN PO MODERATE PAIN LEVEL 4-6 Last administered on 07/27/18 02:12; Admin Dose 1 TAB; Start 07/24/18 at 21:01 Aspirin (Aspirin) 81 mg DAILY PO Last administered on 07/27/18 08:49; Admin Dose 81 MG; Start 07/24/18 at 21:01 Docusate Sodium (Colace) 250 mg DAILY PO Last administered on 07/27/18 08:42; Admin Dose 250 MG; Start 07/24/18 at 21:01 Amlodipine Besylate (Norvasc) 5 mg BID PO Last administered on 07/27/18 08:43; Admin Dose 5 MG; Start 07/24/18 at 22:10 Atorvastatin Calcium (Lipitor) 20 mg QHS PO Last administered on 07/26/18 20:45; Admin Dose 20 MG; Start 07/24/18 at 22:10 Hydralazine HCl (Apresoline) 50 mg BID PO Last administered on 07/27/18 08:42; Admin Dose 50 MG; Start 07/24/18 at 22:11 Losartan Potassium (Cozaar) 50 mg BID PO Last administered on 07/27/18 08:43; Admin Dose 50 MG; Start 07/24/18 at 22:11 Tamsulosin HCl (Flomax) 0.4 mg HS PO Last administered on 07/26/18 20:45; Admin Dose 0.4 MG; Start 07/24/18 at 22:11 Magnesium Hydroxide (Milk Of Mag) 30 ml BID PRN PO CONSTIPATION; Start 07/25/18 at 05:00 Lactulose (Enulose) 20 gm DAILY PRN PO CONSTIPATION; Start 07/25/18 at 05:00 Bisacodyl (Dulcolax Supp) 10 mg DAILY PRN [place] CONSTIPATION; Start 07/25/18 at 05:00 Acetaminophen (Tylenol Tab) 650 mg Q6H PRN PO MILD PAIN(1-3)OR ELEVATED TEMP Last administered on 07/27/18at 08:42; Admin Dose 650 MG; Start 07/25/18 at 13:00 Enoxaparin Sodium (Lovenox) 40 mg DAILY SC Last administered on 07/27/18at 10:18; Admin Dose 40 MG; Start 07/26/18 at 09:00 Pantoprazole (Protonix Tab) 40 mg BID@0600,1800 PO Last administered on 07/27/18at 06:32; Admin Dose 40 MG; Start 07/25/18 at 18:00 VTE Prophylaxis Risk score (from Ns)>0 risk: 8 SCD applied (from [facility]): Yes Lines/Catheters IV Catheter Type: Duque in Place: No Assessment/Plan Hospital Course subjective no acute issues overnight Objective Physical exam General: Patient is laying in bed and answers questions appropriately Mentation: Patient is alert and oriented 4, Head: Normocephalic atraumatic Eyes: EOMI, pupils reactive to light Neck: Supple, nontender, midline Respiratory: Clear to auscultation bilaterally Cardiovascular: regular rate, no obvious murmurs Gastrointestinal: Mildly tender to palpation, bowel sounds heard. Neurological: Moves all extremities spontaneously Skin: Surgical site on abdomen, clean, dry Assessment and plan 68 yo M with hx of colon ca in the past who presented with Diarrhea with [place]/vomiting and subsequently finding new mass and after ex lap, found to be recurrent adenocarcinoma of the rectum. Recurrent adenocarcinoma of the rectum -Found on exploratory laparotomy during last admission, -Oncology is following patient and suggest follow-up with possible chemo and other intervention after rehab -Status post colostomy bag -Follow-up with surgery after rehab History of colon cancer -Recurrent colon cancer, patient has a history of refusing treatment in the past, possible okay with treatment going on the future, however will defer to oncology Acute urinary retention -We will attempt in and out straight caths, however may need to insert Duque catheter -We will try Flomax History of CVA -No significant residual deficits Hypertension -Continue home meds Dyslipidemia -Continue home meds Questionable remote seizure disorder -Monitor Disposition -In acute rehab unit. -patient's family requests patient not be given strong pain medication as he has mood changes BRIA CHAVIRA Jul 27, 2018 12:38
[2018-07-27 14:00] VITALS: BP 112/54; PULSE 72; RESP 20
--- NOTE | 2018-07-27 17:36 | NUR ---
Patient in bed eating dinner accompanied by his . Offered TV & educational materials for recreational activities. Alert, oriented x 3 with periods of confusion. No SOB. Complained of pain so given pain medication. Relieved after 30 minutes. No adverse reaction noted with colostomy bag use & replacement. Kept clean & dry. All due meds given. Call light within reach. Bed alarm on & in low position. Kept comfortable.
[2018-07-27 20:01] VITALS: BP 133/67; RESP 18
[2018-07-27] MEDS: TAMSULOSIN (SR) 0.4 MG CAP PO SCH (21:17)
[2018-07-27] MEDS: ATORVASTATIN 20 MG TAB PO SCH (21:17)
--- NOTE | 2018-07-28 00:21 | NUR ---
[facility] RN Weekly Summary Dates From: 07/24/18 to 07/27/18 Patient Name: EPI MANUEL MR#: [id number] Height: 5 ft 6 in Weight: 166 lbs 7.184 oz 75.500 kg Reason for Visit: DEBILITY Precautions: Fall. Pressure Ulcer Date: 07/28/18 Time: 0021 User: DANIA FLETCHER Short-term Goals: 1. No fall, no injury 2. No S/S of surgical site infection 3. Pain will be well controlled 4. Voids without assisted device Patient's progress: fair Short-term goals not met and reason/barriers: Ongoing Bladder - level of function and accidents: 1, F/C, Duque care by staff Bowel - level of function and accidents: 1, colostomy, colostomy care by staff Skin: non-intact Status: abdomen incision with diane Treatment: as per MD order Changes: [place] removal for 08/03/18 Pain: Yes Level: 3-7/10 Location: abdoment Management: [place] po prn Changes: No Functional levels: Self Care: 1 Transfers: 1 Locomotion: 1 Assistance requirements: Communication: 4 Social Cognition: 5 Safety awareness: No. Family at bedside. Has bed alarm on for safety precaution Interdisciplinary interactions: . PT. OT. ST. NICOLE RN Patient education: Yes, q.shift and prn on medication, safety, use of call light, and more as documented Discharge needs: Pending Comorbid conditions: 1. Acute pain syndrome. 2. Acute kidney injury. 3. History of CVA. 4. History of seizure disorder. 5. Hyperlipidemia. 6. Impairments in self-care and mobility. Plan of Care continuation: Yes, continue current POC
[2018-07-28 02:00] VITALS: BP 128/62; PULSE 80; RESP 18
--- NOTE | 2018-07-28 05:34 | NUR ---
Pt asleep, no s/s of acute distress. No complaints of pain at this time. Due meds given. Needs attended to. Frequent checks done. Safety precautions in place. Kept comfortable. Encouraged to call for help whenever necessary. at bedside. Will endorse accordingly.
[2018-07-28] MEDS: PANTOPRAZOLE (EC) 40 MG TAB PO SCH ×2 (06:19→17:18)
--- NOTE | 2018-07-28 06:38 | NUR ---
Colostomy bag changed; dressing cleansed with NS, covered with gauze.
[2018-07-28 07:00] VITALS: BP 148/70; PULSE 76; RESP 18
[2018-07-28] MEDS: FOLIC ACID 1 MG TAB PO SCH (08:29)
[2018-07-28] MEDS: AMLODIPINE 5 MG TAB PO SCH ×2 (08:29→20:32)
[2018-07-28] MEDS: DOCUSATE SODIUM 250 MG CAP PO SCH (08:29)
[2018-07-28] MEDS: LOSARTAN 50 MG TAB PO SCH ×2 (08:29→20:32)
[2018-07-28] MEDS: ENOXAPARIN 40 MG/0.4 ML SYG SC SCH (08:37)
[2018-07-28] MEDS: ASPIRIN 81 MG TAB PO SCH (08:37)
--- NOTE | 2018-07-28 08:52 | PN ---
Date/Time of Note Date/Time of Note DATE: 07/28/18 TIME: 08:51 Subjective Comfortable, pain improving Objective Vital Signs Date Temp Pulse Resp B/P (MAP) Pulse Ox O2 O2 Flow FiO2 Time Delivery Rate 07/28/18 97.7 80 18 128/62 96 Room Air 02:00 (84) Intake and Output 07/27/18 07/27/18 07/28/18 1515:00 23:00 07:00 IntakeIntake Total 300 ml 640 ml OutputOutput Total 450 ml 800 ml BalanceBalance 300 ml 190 ml -800 ml Exam pulm-cta integ- clean dry intact. max/mod assist Results/Medications Result Diagram: 07/27/1881707/27/18817 Medications Current Medications Folic Acid (Folic Acid) 1 mg DAILY PO Last administered on 07/28/18 08:29; Admin Dose 1 MG; Start 07/24/18 at 21:01 Acetaminophen/ Hydrocodone Bitart ([place] (5/325)) 1 tab Q4H PRN PO MODERATE PAIN LEVEL 4-6 Last administered on 07/27/18 17:33; Admin Dose 1 TAB; Start 07/24/18 at 21:01 Aspirin (Aspirin) 81 mg DAILY PO Last administered on 07/27/18 08:49; Admin Dose 81 MG; Start 07/24/18 at 21:01 Docusate Sodium (Colace) 250 mg DAILY PO Last administered on 07/28/18 08:29; Admin Dose 250 MG; Start 07/24/18 at 21:01 Amlodipine Besylate (Norvasc) 5 mg BID PO Last administered on 07/28/18 08:29; Admin Dose 5 MG; Start 07/24/18 at 22:10 Atorvastatin Calcium (Lipitor) 20 mg QHS PO Last administered on 07/27/18 21:17; Admin Dose 20 MG; Start 07/24/18 at 22:10 Hydralazine HCl (Apresoline) 50 mg BID PO Last administered on 07/28/18 08:28; Admin Dose 50 MG; Start 07/24/18 at 22:11 Losartan Potassium (Cozaar) 50 mg BID PO Last administered on 07/28/18 08:29; Admin Dose 50 MG; Start 07/24/18 at 22:11 Tamsulosin HCl (Flomax) 0.4 mg HS PO Last administered on 07/27/18at 21:17; Admin Dose 0.4 MG; Start 07/24/18 at 22:11 Magnesium Hydroxide (Milk Of Mag) 30 ml BID PRN PO CONSTIPATION; Start 07/25/18 at 05:00 Lactulose (Enulose) 20 gm DAILY PRN PO CONSTIPATION; Start 07/25/18 at 05:00 Bisacodyl (Dulcolax Supp) 10 mg DAILY PRN [place] CONSTIPATION; Start 07/25/18 at 05:00 Acetaminophen (Tylenol Tab) 650 mg Q6H PRN PO MILD PAIN(1-3)OR ELEVATED TEMP Last administered on 07/27/18at 15:08; Admin Dose 650 MG; Start 07/25/18 at 13:00 Enoxaparin Sodium (Lovenox) 40 mg DAILY SC Last administered on 07/27/18at 10:18; Admin Dose 40 MG; Start 07/26/18 at 09:00 Pantoprazole (Protonix Tab) 40 mg BID@0600,1800 PO Last administered on 07/28/18at 06:19; Admin Dose 40 MG; Start 07/25/18 at 18:00 Assessment/Plan Additional Assessment/Plan Rehab- Debility secondary to large bowel obstruction status post resection and colostomy. Continue rehab program GI-colostomy care traning acute pain syndrome- improving. Acute kidney injury-improved History of CVA. History of seizure disorder. Hyperlipidemia. SHEILA MARIE MD Jul 28, 2018 08:52
[2018-07-28] MEDS: HYDROCODONE/APAP (5/325) TAB PO PRN ×2 (11:28→20:31)
[2018-07-28 14:00] VITALS: BP 150/67; PULSE 89; RESP 18
--- NOTE | 2018-07-28 17:16 | PN ---
Date/Time of Note Date/Time of Note DATE: 07/28/18 TIME: 17:15 Assessment/Plan VTE Prophylaxis Risk score (from Nsg)>0 risk: 6 SCD applied (from Nsg): Yes Pharmacological prophylaxis: heparin Lines/Catheters IV Catheter Type (from Nrsg): Urinary Cath still in place: Yes Reason Cath still needed: urinary retention Assessment/Plan Hospital Course 68 yo M with hx of colon ca in the past who presented with Diarrhea with nausea/vomiting and subsequently finding new mass and after ex lap, found to be recurrent adenocarcinoma of the rectum. Recurrent adenocarcinoma of the rectum -Found on exploratory laparotomy during last admission, -Oncology is following patient and suggest follow-up with possible chemo and other intervention after rehab -Status post colostomy bag -Follow-up with surgery after rehab History of colon cancer -Recurrent colon cancer, patient has a history of refusing treatment in the past, possible okay with treatment going on the future, however will defer to oncology Acute urinary retention - UA/UC pending - [place] in place -We will try Flomax History of CVA -No significant residual deficits Hypertension -Continue home meds Dyslipidemia -Continue home meds Questionable remote seizure disorder -Monitor Disposition -In acute rehab unit. -patient's family requests patient not be given strong pain medication as he has mood changes Result Diagram: 07/28/18 0952 07/27/18 0818 Results 24hrs Laboratory Tests Test 07/28/18 09:52 07/28/18 15:00 White Blood Count 8.4 Red Blood Count 3.54 L Hemoglobin 10.9 L Hematocrit 32.5 L Mean Corpuscular Volume 91.8 Mean Corpuscular Hemoglobin 30.8 Mean Corpuscular Hemoglobin Concent 33.5 Red Cell Distribution Width 14.1 Platelet Count 281 Mean Platelet Volume 9.7 Immature Granulocytes % 0.800 H Neutrophils % 79.8 H Lymphocytes % 13.3 L Monocytes % 3.5 Eosinophils % 1.6 Basophils % 1.0 Nucleated Red Blood Cells % 0.0 Immature Granulocytes # 0.070 H Neutrophils # 6.7 Lymphocytes # 1.1 Monocytes # 0.3 Eosinophils # 0.1 Basophils # 0.1 Nucleated Red Blood Cells # 0.0 Urine Color RED Urine Clarity SLIGHTLY CLOUDY A Urine pH 6.0 Urine Specific [place] 1.013 Urine Ketones NEGATIVE Urine Nitrite NEGATIVE Urine Bilirubin NEGATIVE Urine Urobilinogen NEGATIVE Urine Leukocyte Esterase TRACE A Urine Microscopic RBC > 182 H Urine Microscopic WBC 103 H Urine Bacteria FEW A Urine Hemoglobin 3+ H Urine Glucose 1+ H Urine Total Protein 2+ H Subjective 24 Hr Interval Summary Free Text/Dictation Having hematuria in smith bag to AC dose was held Exam/Review of Systems Vital Signs Vitals Vital Signs Date Temp Pulse Resp B/P (MAP) Pulse Ox O2 O2 Flow FiO2 Time Delivery Rate 07/28/18 98.1 89 18 150/67 94 Room Air 14:00 (94) Intake and Output 07/27/18 07/27/18 07/28/18 1515:00 23:00 07:00 IntakeIntake Total 300 ml 640 ml OutputOutput Total 450 ml 800 ml BalanceBalance 300 ml 190 ml -800 ml Medications Medications Current Medications Folic Acid (Folic Acid) 1 mg DAILY PO Last administered on 07/28/18 08:29; Admin Dose 1 MG; Start 07/24/18 at 21:01 Acetaminophen/ Hydrocodone Bitart ([place] (5/325)) 1 tab Q4H PRN PO MODERATE PAIN LEVEL 4-6 Last administered on 07/28/18 11:28; Admin Dose 1 TAB; Start 07/24/18 at 21:01 Aspirin (Aspirin) 81 mg DAILY PO Last administered on 07/27/18 08:49; Admin Dose 81 MG; Start 07/24/18 at 21:01 Docusate Sodium (Colace) 250 mg DAILY PO Last administered on 07/28/18 08:29; Admin Dose 250 MG; Start 07/24/18 at 21:01 Amlodipine Besylate (Norvasc) 5 mg BID PO Last administered on 07/28/18 08:29; Admin Dose 5 MG; Start 07/24/18 at 22:10 Atorvastatin Calcium (Lipitor) 20 mg QHS PO Last administered on 07/27/18 21:17; Admin Dose 20 MG; Start 07/24/18 at 22:10 Hydralazine HCl (Apresoline) 50 mg BID PO Last administered on 07/28/18 08:28; Admin Dose 50 MG; Start 07/24/18 at 22:11 Losartan Potassium (Cozaar) 50 mg BID PO Last administered on 07/28/18 08:29; Admin Dose 50 MG; Start 07/24/18 at 22:11 Tamsulosin HCl (Flomax) 0.4 mg HS PO Last administered on 07/27/18at 21:17; Admin Dose 0.4 MG; Start 07/24/18 at 22:11 Magnesium Hydroxide (Milk Of Mag) 30 ml BID PRN PO CONSTIPATION; Start 07/25/18 at 05:00 Lactulose (Enulose) 20 gm DAILY PRN PO CONSTIPATION; Start 07/25/18 at 05:00 Bisacodyl (Dulcolax Supp) 10 mg DAILY PRN [place] CONSTIPATION; Start 07/25/18 at 05:00 Acetaminophen (Tylenol Tab) 650 mg Q6H PRN PO MILD PAIN(1-3)OR ELEVATED TEMP Last administered on 07/27/18at 15:08; Admin Dose 650 MG; Start 07/25/18 at 13:00 Enoxaparin Sodium (Lovenox) 40 mg DAILY SC Last administered on 07/27/18at 10:18; Admin Dose 40 MG; Start 07/26/18 at 09:00 Pantoprazole (Protonix Tab) 40 mg BID@0600,1800 PO Last administered on 07/28/18at 06:19; Admin Dose 40 MG; Start 07/25/18 at 18:00 NITA SILVA MD Jul 28, 2018 17:16
--- NOTE | 2018-07-28 18:18 | NUR ---
Patient is alert and breathing even. no SOB. patient c/o pain. PRN pain medication given and was effective. patient seen by Dr. Leonard and notified that patient with hematuria. no fever with no new order. Dr. Leonard notified that Lovenox and Aspirin was not given d/t hematuria and and okayed to give it for tomorrow dose. According to the patient SON patient with episode of pulling the catheter that maybe the cause of hematuria and per SON patient does not sleeping good at night. Dr. Leonard was notified with new order of Ambien CODEYN. Patient with colostomy. patent with soft BM.Patients at bedside most of the time. reminded to call when needed help.
[2018-07-28 20:23] VITALS: BP 140/65; PULSE 75; RESP 18
[2018-07-28] MEDS: TAMSULOSIN (SR) 0.4 MG CAP PO SCH (20:31)
[2018-07-28] MEDS: ATORVASTATIN 20 MG TAB PO SCH (20:31)
[2018-07-28] MEDS: ZOLPIDEM 5 MG TAB PO PRN (20:33)
[2018-07-29 01:56] VITALS: BP_SYST 103; BP_SYST 144; BP_DIAS 62; BP_DIAS 65; PULSE 73; PULSE 81; RESP 18
[2018-07-29] MEDS: HYDROCODONE/APAP (5/325) TAB PO PRN ×2 (02:10→19:54)
--- NOTE | 2018-07-29 06:00 | NUR ---
End of Shift Note During the shift, [place] as pain medications given 2x in different occasions, they were effective. Colostomy bag changed and abdominal dressing changed. Bed on lowest position, side rails up 2x, bed alarm on and call light within reach. will continue to monitor
[2018-07-29] MEDS: PANTOPRAZOLE (EC) 40 MG TAB PO SCH ×2 (06:42→17:41)
[2018-07-29 07:30] VITALS: BP 154/74; PULSE 77; RESP 18
[2018-07-29] MEDS: ACETAMINOPHEN 325 MG TAB PO PRN ×2 (08:38→21:56)
[2018-07-29] MEDS: DOCUSATE SODIUM 250 MG CAP PO SCH (08:38)
[2018-07-29] MEDS: ASPIRIN 81 MG TAB PO SCH (08:38)
[2018-07-29] MEDS: AMLODIPINE 5 MG TAB PO SCH ×2 (08:39→20:30)
[2018-07-29] MEDS: LOSARTAN 50 MG TAB PO SCH ×2 (08:39→20:29)
[2018-07-29] MEDS: FOLIC ACID 1 MG TAB PO SCH (08:39)
[2018-07-29] MEDS: ENOXAPARIN 40 MG/0.4 ML SYG SC SCH (08:40)
--- NOTE | 2018-07-29 10:02 | NUR ---
Ostomy Care Consult: Patient is a male with past medical history significant for colorectal carcinoma s/p resection 2017 ,CVA, this lipidemia, hypertension, remote seizure who originally presented to [facility] with abdominal pain, nausea, vomiting and underwent colonoscopy. A mass was found on colonoscopy and general surgery was subsequently consulted. Patient eventually underwent exploratory laparotomy and eventually had Babar procedure with end colostomy placement. Patient's at bedside. She would like ostomy care teaching with both her and her son. She stated both her and her son will be here tomorrow. Will re-attempt for ostomy teaching tomorrow in AM. ASSESSMENT: - Left abdomen colostomy with one-piece drainable pouch. Pouch intact no leakage. Stoma pink, oval, budded. Functioning with liquid stool. Unable to assess peristomal skin at this time. Discussed above plan of care with RNMary Kate. Jazmin Montoya, BON RN CWOCN
--- NOTE | 2018-07-29 11:43 | PN ---
Date/Time of Note Date/Time of Note DATE: 07/29/18 TIME: 11:39 Assessment/Plan VTE Prophylaxis Risk score (from Nsg)>0 risk: 6 SCD applied (from Nsg): Yes Pharmacological prophylaxis: LMWH Lines/Catheters IV Catheter Type (from Nrsg): Urinary Cath still in place: Yes Reason Cath still needed: other (indicate) (weakness) Assessment/Plan Assessment/Plan Pt is getting stronger and is more alert. Not ready for chemotherapy. Continue the P.T. program. After discharge, PET scan and chemotherapy can be arranged. Result Diagram: 07/28/18 0952 07/27/18 0818 Results 24hrs Laboratory Tests Test 07/28/18 15:00 Urine Color RED Urine Clarity SLIGHTLY CLOUDY A Urine pH 6.0 Urine Specific [place] 1.013 Urine Ketones NEGATIVE Urine Nitrite NEGATIVE Urine Bilirubin NEGATIVE Urine Urobilinogen NEGATIVE Urine Leukocyte Esterase TRACE A Urine Microscopic RBC > 182 H Urine Microscopic WBC 103 H Urine Bacteria FEW A Urine Hemoglobin 3+ H Urine Glucose 1+ H Urine Total Protein 2+ H Subjective 24 Hr Interval Summary Free Text/Dictation Pt is alert and comfortable Exam/Review of Systems Vital Signs Vitals Vital Signs Date Temp Pulse Resp B/P (MAP) Pulse Ox O2 O2 Flow FiO2 Time Delivery Rate 07/29/18 97.7 77 18 154/74 95 Room Air 07:30 (100) Intake and Output 07/28/18 07/28/18 07/29/18 1515:00 23:00 07:00 IntakeIntake Total 2420 ml 100 ml OutputOutput Total 600 ml 1100 ml BalanceBalance 1820 ml -1000 ml Exam Constitutional: alert, oriented Head: normocephalic Eyes: other (mild pallor) ENMT: nl external ears & nose Neck: supple Respiratory: clear to auscultation Cardiovascular: regular rate and rhythm Gastrointestinal: soft, non-tender, other (surgical wound not well healed yet. [place] in place) Neurological: other (weak diffusely but improved.) Medications Medications Current Medications Folic Acid (Folic Acid) 1 mg DAILY PO Last administered on 07/29/18at 08:39; Admin Dose 1 MG; Start 07/24/18 at 21:01 Acetaminophen/ Hydrocodone Bitart ([place] (5/325)) 1 tab Q4H PRN PO MODERATE PAIN LEVEL 4-6 Last administered on 07/29/18 02:10; Admin Dose 1 TAB; Start 07/24/18 at 21:01 Aspirin (Aspirin) 81 mg DAILY PO Last administered on 07/29/18 08:38; Admin Dose 81 MG; Start 07/24/18 at 21:01 Docusate Sodium (Colace) 250 mg DAILY PO Last administered on 07/29/18 08:38; Admin Dose 250 MG; Start 07/24/18 at 21:01 Amlodipine Besylate (Norvasc) 5 mg BID PO Last administered on 07/29/18 08:39; Admin Dose 5 MG; Start 07/24/18 at 22:10 Atorvastatin Calcium (Lipitor) 20 mg QHS PO Last administered on 07/28/18 20:31; Admin Dose 20 MG; Start 07/24/18 at 22:10 Hydralazine HCl (Apresoline) 50 mg BID PO Last administered on 07/29/18 08:39; Admin Dose 50 MG; Start 07/24/18 at 22:11 Losartan Potassium (Cozaar) 50 mg BID PO Last administered on 07/29/18 08:39; Admin Dose 50 MG; Start 07/24/18 at 22:11 Tamsulosin HCl (Flomax) 0.4 mg HS PO Last administered on 07/28/18 20:31; Admin Dose 0.4 MG; Start 07/24/18 at 22:11 Magnesium Hydroxide (Milk Of Mag) 30 ml BID PRN PO CONSTIPATION; Start 07/25/18 at 05:00 Lactulose (Enulose) 20 gm DAILY PRN PO CONSTIPATION; Start 07/25/18 at 05:00 Bisacodyl (Dulcolax Supp) 10 mg DAILY PRN [place] CONSTIPATION; Start 07/25/18 at 05:00 Acetaminophen (Tylenol Tab) 650 mg Q6H PRN PO MILD PAIN(1-3)OR ELEVATED TEMP Last administered on 07/29/18 08:38; Admin Dose 650 MG; Start 07/25/18 at 13:00 Enoxaparin Sodium (Lovenox) 40 mg DAILY SC Last administered on 07/29/18 08:40; Admin Dose 40 MG; Start 07/26/18 at 09:00 Pantoprazole (Protonix Tab) 40 mg BID@0600,1800 PO Last administered on 1/21/19at 06:42; Admin Dose 40 MG; Start 07/25/18 at 18:00 Zolpidem Tartrate (Ambien) 5 mg HS PRN PO INSOMNIA Last administered on 07/28/18at 20:33; Admin Dose 5 MG; Start 07/28/18 at 17:30 BOBBY CABRAL MD Jul 29, 2018 11:43
--- NOTE | 2018-07-29 13:51 | PN ---
Date/Time of Note Date/Time of Note DATE: 07/29/18 TIME: 13:38 Objective Vital Signs Date Temp Pulse Resp B/P (MAP) Pulse Ox O2 O2 Flow FiO2 Time Delivery Rate 07/29/18 97.7 77 18 154/74 95 Room Air 07:30 (100) Intake and Output 07/28/18 07/28/18 07/29/18 1515:00 23:00 07:00 IntakeIntake Total 2420 ml 100 ml OutputOutput Total 600 ml 1100 ml BalanceBalance 1820 ml -1000 ml Exam Physical Exam: Pulm-cta Abd-soft BOWEL- Colostomy BLADDER-Cont/incont SKIN- improving OT- DRESSING- min UB/max LB BATHING-min UB/max LB TOILETING-max PT- BED MOBILITY-mod/mi TRANSFERS-mod/min AMBULATION-mod 25 feet COGNITION-min A/P- Interdisciplinary team conference held today. Please see interdisciplinary sheet. Working toward d.c. on 08/06 with post discharge follow up of physical therapy, occupational therapy. Results/Medications Result Diagram: 07/28/1852 07/27/18 0818 Results 24 hrs Laboratory Tests Test 07/28/18 15:00 Urine Color RED Urine Clarity SLIGHTLY CLOUDY A Urine pH 6.0 Urine Specific [place] 1.013 Urine Ketones NEGATIVE Urine Nitrite NEGATIVE Urine Bilirubin NEGATIVE Urine Urobilinogen NEGATIVE Urine Leukocyte Esterase TRACE A Urine Microscopic RBC > 182 H Urine Microscopic WBC 103 H Urine Bacteria FEW A Urine Hemoglobin 3+ H Urine Glucose 1+ H Urine Total Protein 2+ H Medications Current Medications Folic Acid (Folic Acid) 1 mg DAILY PO Last administered on 07/29/18at 08:39; Admin Dose 1 MG; Start 07/24/18 at 21:01 Acetaminophen/ Hydrocodone Bitart ([place] (5/325)) 1 tab Q4H PRN PO MODERATE PAIN LEVEL 4-6 Last administered on 07/29/18at 02:10; Admin Dose 1 TAB; Start 07/24/18 at 21:01 Aspirin (Aspirin) 81 mg DAILY PO Last administered on 07/29/18at 08:38; Admin Dose 81 MG; Start 07/24/18 at 21:01 Docusate Sodium (Colace) 250 mg DAILY PO Last administered on 07/29/18at 08:38; Admin Dose 250 MG; Start 07/24/18 at 21:01 Amlodipine Besylate (Norvasc) 5 mg BID PO Last administered on 07/29/18 08:39; Admin Dose 5 MG; Start 07/24/18 at 22:10 Atorvastatin Calcium (Lipitor) 20 mg QHS PO Last administered on 07/28/18 20:31; Admin Dose 20 MG; Start 07/24/18 at 22:10 Hydralazine HCl (Apresoline) 50 mg BID PO Last administered on 07/29/18 08:39; Admin Dose 50 MG; Start 07/24/18 at 22:11 Losartan Potassium (Cozaar) 50 mg BID PO Last administered on 07/29/18 08:39; Admin Dose 50 MG; Start 07/24/18 at 22:11 Tamsulosin HCl (Flomax) 0.4 mg HS PO Last administered on 07/28/18 20:31; Admin Dose 0.4 MG; Start 07/24/18 at 22:11 Magnesium Hydroxide (Milk Of Mag) 30 ml BID PRN PO CONSTIPATION; Start 07/25/18 at 05:00 Lactulose (Enulose) 20 gm DAILY PRN PO CONSTIPATION; Start 07/25/18 at 05:00 Bisacodyl (Dulcolax Supp) 10 mg DAILY PRN [place] CONSTIPATION; Start 07/25/18 at 05:00 Acetaminophen (Tylenol Tab) 650 mg Q6H PRN PO MILD PAIN(1-3)OR ELEVATED TEMP Last administered on 07/29/18 08:38; Admin Dose 650 MG; Start 07/25/18 at 13:00 Enoxaparin Sodium (Lovenox) 40 mg DAILY SC Last administered on 07/29/18 08:40; Admin Dose 40 MG; Start 07/26/18 at 09:00 Pantoprazole (Protonix Tab) 40 mg BID@0600,1800 PO Last administered on 07/29/18 06:42; Admin Dose 40 MG; Start 07/25/18 at 18:00 Zolpidem Tartrate (Ambien) 5 mg HS PRN PO INSOMNIA Last administered on 07/28/18 20:33; Admin Dose 5 MG; Start 07/28/18 at 17:30 SHEILA MARIE MD Jul 29, 2018 13:51
[2018-07-29 14:00] VITALS: BP 135/63; PULSE 68; RESP 20
--- NOTE | 2018-07-29 14:36 | NUR ---
Seen & examined by Dr Alcala. Leonarda removed by MD. Patient tolerated procedure well. Cover incision site with gauze PRN. Noted & carried out.
--- NOTE | 2018-07-29 14:39 | PN ---
Date/Time of Note Date/Time of Note DATE: 07/29/18 TIME: 14:35 Assessment/Plan Lines/Catheters IV Catheter Type (from Nrsg): Duque in Place (from Nrsg): Yes Assessment/Plan Chief Complaint/Hosp Course Pt is s/p Babar procedure for anastomotic stricture and final path reveals microscopic evidence of recurrent adenocarcinoma, both in the specimen and in the pelvic sidewall Assessment/Plan POD #9 DC'ed the diane. Wound is healing well. Would recommend adjuvant therapy. Post op radiation in addition to chemo may be indicated Will follow as needed. Continue w/ stoma care and teaching Subjective 24 Hr Interval Summary Pt is in bed w/o complaint Not ambulating well Constitutional: no complaints Feeding: baseline diet Pain Control: well controlled Exam/Review of Systems Vital Signs Vitals Vital Signs Date Temp Pulse Resp B/P (MAP) Pulse Ox O2 O2 Flow FiO2 Time Delivery Rate 07/29/18 97.7 77 18 154/74 95 Room Air 07:30 (100) Intake and Output 07/28/18 07/28/18 07/29/18 1515:00 23:00 07:00 IntakeIntake Total 2420 ml 100 ml OutputOutput Total 600 ml 1100 ml BalanceBalance 1820 ml -1000 ml Exam Constitutional: alert, oriented Psych: no complaints Gastrointestinal: soft (Stoma is healthy and patent) Results Result Diagram: 07/28/18 0952 07/27/18 0818 MOHAN GUPTA MD Jul 29, 2018 14:39
--- NOTE | 2018-07-29 16:04 | PN ---
Date/Time of Note Date/Time of Note DATE: 07/29/18 TIME: 16:03 Assessment/Plan VTE Prophylaxis Risk score (from Nsg)>0 risk: 6 SCD applied (from Nsg): Yes Pharmacological prophylaxis: heparin Lines/Catheters IV Catheter Type (from Nrsg): Urinary Cath still in place: Yes Reason Cath still needed: urinary retention Assessment/Plan Hospital Course 68 yo M with hx of colon ca in the past who presented with Diarrhea with nausea/vomiting and subsequently finding new mass and after ex lap, found to be recurrent adenocarcinoma of the rectum. Recurrent adenocarcinoma of the rectum -Found on exploratory laparotomy during last admission, -Oncology is following patient and suggest follow-up with possible chemo and other intervention after rehab -Status post colostomy bag -Follow-up with surgery after rehab History of colon cancer -Recurrent colon cancer, patient has a history of refusing treatment in the past, possible okay with treatment going on the future, however will defer to oncology Acute urinary retention - trial of void today History of CVA -No significant residual deficits Hypertension -Continue home meds Dyslipidemia -Continue home meds Questionable remote seizure disorder -Monitor Disposition -In acute rehab unit. -patient's family requests patient not be given strong pain medication as he has mood changes Result Diagram: 07/28/18 0952 07/27/18 0818 Subjective 24 Hr Interval Summary Free Text/Dictation Discussed cancer diagnosis and need for treatment as outpatient. Has medi-steven. Suggested he make an appointment at [facility] Exam/Review of Systems Vital Signs Vitals Vital Signs Date Temp Pulse Resp B/P (MAP) Pulse Ox O2 O2 Flow FiO2 Time Delivery Rate 07/29/18 97.7 77 18 154/74 95 Room Air 07:30 (100) Intake and Output 07/28/18 07/28/18 07/29/18 1515:00 23:00 07:00 IntakeIntake Total 2420 ml 100 ml OutputOutput Total 600 ml 1100 ml BalanceBalance 1820 ml -1000 ml Exam Alert, oriented Appears comfortable RRR CTAB Ostomy with normal output Duque with hematuria Medications Medications Current Medications Folic Acid (Folic Acid) 1 mg DAILY PO Last administered on 07/29/18at 08:39; Admin Dose 1 MG; Start 07/24/18 at 21:01 Acetaminophen/ Hydrocodone Bitart ([place] (5/325)) 1 tab Q4H PRN PO MODERATE PAIN LEVEL 4-6 Last administered on 07/29/18 02:10; Admin Dose 1 TAB; Start 07/24/18 at 21:01 Aspirin (Aspirin) 81 mg DAILY PO Last administered on 07/29/18 08:38; Admin Dose 81 MG; Start 07/24/18 at 21:01 Docusate Sodium (Colace) 250 mg DAILY PO Last administered on 07/29/18 08:38; Admin Dose 250 MG; Start 07/24/18 at 21:01 Amlodipine Besylate (Norvasc) 5 mg BID PO Last administered on 07/29/18 08:39; Admin Dose 5 MG; Start 07/24/18 at 22:10 Atorvastatin Calcium (Lipitor) 20 mg QHS PO Last administered on 07/28/18 20:31; Admin Dose 20 MG; Start 07/24/18 at 22:10 Hydralazine HCl (Apresoline) 50 mg BID PO Last administered on 07/29/18 08:39; Admin Dose 50 MG; Start 07/24/18 at 22:11 Losartan Potassium (Cozaar) 50 mg BID PO Last administered on 07/29/18 08:39; Admin Dose 50 MG; Start 07/24/18 at 22:11 Tamsulosin HCl (Flomax) 0.4 mg HS PO Last administered on 07/28/18 20:31; Admin Dose 0.4 MG; Start 07/24/18 at 22:11 Magnesium Hydroxide (Milk Of Mag) 30 ml BID PRN PO CONSTIPATION; Start 07/25/18 at 05:00 Lactulose (Enulose) 20 gm DAILY PRN PO CONSTIPATION; Start 07/25/18 at 05:00 Bisacodyl (Dulcolax Supp) 10 mg DAILY PRN [place] CONSTIPATION; Start 07/25/18 at 05:00 Acetaminophen (Tylenol Tab) 650 mg Q6H PRN PO MILD PAIN(1-3)OR ELEVATED TEMP Last administered on 07/29/18 08:38; Admin Dose 650 MG; Start 07/25/18 at 13:00 Enoxaparin Sodium (Lovenox) 40 mg DAILY SC Last administered on 07/29/18 08:40; Admin Dose 40 MG; Start 07/26/18 at 09:00 Pantoprazole (Protonix Tab) 40 mg BID@0600,1800 PO Last administered on 07/29/18at 06:42; Admin Dose 40 MG; Start 07/25/18 at 18:00 Zolpidem Tartrate (Ambien) 5 mg HS PRN PO INSOMNIA Last administered on 07/28/18at 20:33; Admin Dose 5 MG; Start 07/28/18 at 17:30 NITA SILVA MD Jul 29, 2018 16:04
--- NOTE | 2018-07-29 17:19 | NUR ---
Patient in bed watching TV. Offered educational materials for recreational activities. Alert, oriented x 3 with periods of confusion. No SOB. Complained of pain so given pain medication. Relieved after 30 minutes. No adverse reaction noted with colostomy bag use & replacement. Kept clean & dry. All due meds given. Call light within reach. Bed alarm on & in low position. Kept comfortable.
[2018-07-29 19:48] VITALS: BP 139/56; PULSE 72; RESP 18
[2018-07-29 20:09] VITALS: BP 117/70; PULSE 69; RESP 18
[2018-07-29] MEDS: TAMSULOSIN (SR) 0.4 MG CAP PO SCH (20:29)
[2018-07-29] MEDS: ATORVASTATIN 20 MG TAB PO SCH (20:30)
[2018-07-29] MEDS: ZOLPIDEM 5 MG TAB PO PRN (21:56)
[2018-07-30 02:14] VITALS: BP 142/66; PULSE 67; RESP 18
[2018-07-30] MEDS: HYDROCODONE/APAP (5/325) TAB PO PRN ×3 (02:15→16:33)
[2018-07-30] MEDS: ACETAMINOPHEN 325 MG TAB PO PRN (04:03)
--- NOTE | 2018-07-30 06:00 | NUR ---
End of Shift Note During the shift, [place] as pain medications given 2x in different occasions, they were partially effective. Pt complained of gas pain, to be endorsed to AM shift nurse. Bed on lowest position, side rails up 2x, bed alarm on and call light within reach. will continue to monitor
[2018-07-30] MEDS: PANTOPRAZOLE (EC) 40 MG TAB PO SCH ×2 (06:22→17:53)
[2018-07-30 07:30] VITALS: BP 153/71; PULSE 76; RESP 18
--- NOTE | 2018-07-30 08:30 | NUR ---
[facility] PT Weekly Summary Dates From: 07/25/18 to 07/30/18 Patient Name: EPI MANUEL MR#: [id number] Height: 5 ft 6 in Weight: 166 lbs 7.184 oz 75.500 kg Reason for Visit: DEBILITY Precautions: Fall risk, abd. precautions, colostomy bag, Frisian-speaking, RLE weakness with R foot drag, h/o CVA, use R toe-off AFO for gait Date: 07/30/18 Time: 0830 User: GLENROY GARCÍA Short-term Goals: SBA bed mobility CGA transfers with FWW or 4WW CGA gait with FWW or 4WW x 50 ft SBA w/c mobility x 50 ft Pt is showing fair gains while here in [facility]. Currently demonstrates min A bed mobility, min A transfers, min A gait with FWW x 40 ft, SBA w/c mobility x 40-50 ft. Pt progressing toward set STGs. Barriers include pain and dec motivation and participation at times. Recommendations: manual w/c, commode, tub bench, HHPT and 24-hr assistance Cont POC to achieve all goals.
[2018-07-30] MEDS: FOLIC ACID 1 MG TAB PO SCH (09:51)
[2018-07-30] MEDS: ASPIRIN 81 MG TAB PO SCH (09:51)
[2018-07-30] MEDS: DOCUSATE SODIUM 250 MG CAP PO SCH (09:51)
[2018-07-30] MEDS: ENOXAPARIN 40 MG/0.4 ML SYG SC SCH (09:51)
[2018-07-30] MEDS: LOSARTAN 50 MG TAB PO SCH ×2 (09:52→20:24)
[2018-07-30] MEDS: AMLODIPINE 5 MG TAB PO SCH ×2 (09:53→20:24)
--- NOTE | 2018-07-30 09:54 | NUR ---
Ostomy Care Education: Patient is a male with past medical history significant for colorectal carcinoma s/p resection 2017 ,CVA, this lipidemia, hypertension, remote seizure who originally presented to [facility] with abdominal pain, nausea, vomiting and underwent colonoscopy. A mass was found on colonoscopy and general surgery was subsequently consulted. Patient eventually underwent exploratory laparotomy and eventually had Babar procedure with end colostomy placement. Patient's and son, Parveen at bedside during ostomy care teaching. Patient is not ready to look at stoma site or anticipate in teaching at this time. - Left lower abdomen colostomy with one-piece drainable pouch. Pouch intact no leakage. Stoma pink, moist, oval (51mm), budded. Functioning with liquid stool. Peristomal skin intact. Mucocutaneous junction intact. Ostomy education as follow: - Frequency of pouch changing; every 4 days or when there is leakage. - Empty pouch when <1/2 full or fill with gas to prevent pouch leakage. - Wxby-[id number]-[id number] demonstration open and close pouch. Return demonstration from patient's . - Normal stoma color red and/or pink. If stoma color is guerra and/or black, go to ED and notify MD right away. - Normal peristomal skin. - Layo-[id number]-[id number] demonstration remove, pouch cutting, and application of pouch. - Okay to shower with or without pouch. Recommended supplies as follow: - [place] New Image two-piece cut-to-fit drainable pouch Ref#[id number] - Skin barrier film for peristomal skin (Hospital supples: 3M Cavilon no sting barrier film) Ref#[id number] Recommended home health nurse to continue ostomy teaching after patient discharge. Given ostomy print education information to patient's son. Patient and patient's family has no question at this time. Ostomy nurse remains available for further assist. Discussed above plan of care with Mary Kate DUBON. Jazmin Montoya, BSN RN CWOCN
--- NOTE | 2018-07-30 12:00 | PN ---
Date/Time of Note Date/Time of Note DATE: 07/30/18 TIME: 12:00 Subjective Comfortable Objective Vital Signs Date Temp Pulse Resp B/P (MAP) Pulse Ox O2 O2 Flow FiO2 Time Delivery Rate 07/30/18 98.1 76 18 153/71 95 Room Air 07:30 (98) Intake and Output 07/29/18 07/29/18 07/30/18 1515:00 23:00 07:00 IntakeIntake Total 150 ml 1100 ml OutputOutput Total 450 ml 800 ml BalanceBalance -300 ml 300 ml Exam pulm-cta abd-soft mod/min Results/Medications Result Diagram: 07/28/18 0952 07/27/18 0818 Medications Current Medications Folic Acid (Folic Acid) 1 mg DAILY PO Last administered on 07/30/18 09:51; Admin Dose 1 MG; Start 07/24/18 at 21:01 Acetaminophen/ Hydrocodone Bitart ([place] (5/325)) 1 tab Q4H PRN PO MODERATE PAIN LEVEL 4-6 Last administered on 07/30/18 06:21; Admin Dose 1 TAB; Start 07/24/18 at 21:01 Aspirin (Aspirin) 81 mg DAILY PO Last administered on 07/30/18 09:51; Admin Dose 81 MG; Start 07/24/18 at 21:01 Docusate Sodium (Colace) 250 mg DAILY PO Last administered on 07/30/18 09:51; Admin Dose 250 MG; Start 07/24/18 at 21:01 Amlodipine Besylate (Norvasc) 5 mg BID PO Last administered on 07/30/18 09:53; Admin Dose 5 MG; Start 07/24/18 at 22:10 Atorvastatin Calcium (Lipitor) 20 mg QHS PO Last administered on 07/29/18 20:30; Admin Dose 20 MG; Start 07/24/18 at 22:10 Hydralazine HCl (Apresoline) 50 mg BID PO Last administered on 07/30/18 09:52; Admin Dose 50 MG; Start 07/24/18 at 22:11 Losartan Potassium (Cozaar) 50 mg BID PO Last administered on 07/30/18 09:52; Admin Dose 50 MG; Start 07/24/18 at 22:11 Tamsulosin HCl (Flomax) 0.4 mg HS PO Last administered on 1/21/19at 20:29; Admin Dose 0.4 MG; Start 07/24/18 at 22:11 Magnesium Hydroxide (Milk Of Mag) 30 ml BID PRN PO CONSTIPATION; Start 07/25/18 at 05:00 Lactulose (Enulose) 20 gm DAILY PRN PO CONSTIPATION; Start 07/25/18 at 05:00 Bisacodyl (Dulcolax Supp) 10 mg DAILY PRN [place] CONSTIPATION; Start 07/25/18 at 05:00 Acetaminophen (Tylenol Tab) 650 mg Q6H PRN PO MILD PAIN(1-3)OR ELEVATED TEMP Last administered on 07/30/18at 04:03; Admin Dose 650 MG; Start 07/25/18 at 13:00 Enoxaparin Sodium (Lovenox) 40 mg DAILY SC Last administered on 07/30/18at 09:51; Admin Dose 40 MG; Start 07/26/18 at 09:00 Pantoprazole (Protonix Tab) 40 mg BID@0600,1800 PO Last administered on 07/30/18at 06:22; Admin Dose 40 MG; Start 07/25/18 at 18:00 Zolpidem Tartrate (Ambien) 5 mg HS PRN PO INSOMNIA Last administered on 07/29/18at 21:56; Admin Dose 5 MG; Start 07/28/18 at 17:30 Simethicone (Mylicon) 160 mg Q6H PRN PO DISTENSION/GAS/BLOATING; Start 07/30/18 at 11:30 Assessment/Plan Additional Assessment/Plan Rehab- Debility secondary to large bowel obstruction status post resection and colostomy. Continue rehab activities GI-colostomy care training - Urinary retnetion, followed by urology acute pain syndrome- improving. Acute kidney injury-improved History of CVA. History of seizure disorder. Hyperlipidemia. SHEILA MARIE MD Jul 30, 2018 12:00
--- NOTE | 2018-07-30 12:00 | NUR ---
PT NOTE: Per Dr. Adams, pt wants to go home tomorrow 07/31/18 and family agreeable. Spouse reports pt will have 24hr assistance at home. Approached spouse to schedule caregiver training prior to dc home. Spouse requested caregiver training with her daughter who lives with them at 0900 on 07/31/18.
--- NOTE | 2018-07-30 13:30 | CONS ---
Date/Time of Note Date/Time of Note DATE: 07/30/18 TIME: 13:09 Assessment/Plan Assessment/Plan Hospital Course 68-year-old male with history of colon cancer in the past presented to the hospital with diarrhea, nausea and vomiting and was found to have recurrent colon cancer at the site of the prior anastomosis. He had : 1. Partial intestinal obstruction with diarrhea, nausea, vomiting and weight loss secondary to #2: Now resolved. 2. Sigmoid mass/recurrent colon cancer. - Colonoscopy on 07/16/2018 - Status post Babar procedure with colostomy and exploratory laparotomy 07/20/2018 3. History of colorectal carcinoma stage III-C, status post previous resection at the rectosigmoid junction in 2017. - The patient was recommended to get chemo at that time, but the patient and his son had refused at that time. 4. Acute kidney injury, resolved. 5. History of cerebrovascular accident. 6. Hypertension with fair control. 7. Dyslipidemia. 8. Remote seizure disorder, last seizure of 5 to 6 years ago. The patient was transferred to the rehab unit for further care. He was noted to have hematuria and that happened after a Duque catheter was inserted because he had urinary retention. Patient states that at home before his recent surgeries he was voiding about 4 times at night and every 3-4 hours during the day. His urinary stream was slow. He denies any history of hematuria. He was not taking any medications for his prostate. He is presently on tamsulosin 0.[address] scan that he had on admission shows that he has a large prostate that measured about 56 mm in transverse diameter and 44 mm in AP. The hematuria most likely related to pulling on the catheter. I did hand irrigate the catheter and got the clots out of the bladder and then the return of the irrigation was clear. Recommendation: Keep the Duque catheter in for now and increase his tamsulosin to twice a day, check his PSA. Result Diagram: 07/28/18 0952 07/27/18 0818 Consultation Date/Type/Reason Admit Date/Time Jul 24, 2018 at 18:47 Date of Consultation: Jul 30, 2018 Type of Consult Urology Reason for Consultation Gross hematuria and urinary retention Requesting Provider: FAHAD [facility]ARDALES [facility] Hx of Present Illness 68-year-old male with history of colon cancer in the past presented to the hospital with diarrhea, nausea and vomiting and was found to have recurrent colon cancer at the site of the prior anastomosis. He had : 1. Partial intestinal obstruction with diarrhea, nausea, vomiting and weight loss secondary to #2: Now resolved. 2. Sigmoid mass/recurrent colon cancer. - Colonoscopy on 07/16/2018 - Status post Babar procedure with colostomy and exploratory laparotomy 07/20/2018 3. History of colorectal carcinoma stage III-C, status post previous resection at the rectosigmoid junction in 2017. - The patient was recommended to get chemo at that time, but the patient and his son had refused at that time. 4. Acute kidney injury, resolved. 5. History of cerebrovascular accident. 6. Hypertension with fair control. 7. Dyslipidemia. 8. Remote seizure disorder, last seizure of 5 to 6 years ago. The patient was transferred to the rehab unit for further care. He was noted to have hematuria and that happened after a Duque catheter was inserted because he had urinary retention. Patient states that at home before his recent surgeries he was voiding about 4 times at night and every 3-4 hours during the day. His urinary stream was slow. He denies any history of hematuria. He was not taking any medications for his prostate. Constitutional: no complaints Eyes: no complaints ENT: no complaints Respiratory: no complaints; No wheezing Cardiovascular: no complaints; No chest pain Gastrointestinal: other (Has colostomy) Genitourinary: hematuria, other (Has an indwelling Duque catheter with blood- tinged urine in it) Musculoskeletal: no complaints Skin: no complaints Neurologic: no complaints Endocrine: no complaints Lymphatic: no complaints Psychological: no complaints Immunologic: no complaints Past Medical History Medical History: cancer (Colon cancer), hypertension Medications Current Medications Folic Acid (Folic Acid) 1 mg DAILY PO Last administered on 07/30/18at 09:51; Admin Dose 1 MG; Start 07/24/18 at 21:01 Acetaminophen/ Hydrocodone Bitart ([place] (5/325)) 1 tab Q4H PRN PO MODERATE PAIN LEVEL 4-6 Last administered on 07/30/18at 06:21; Admin Dose 1 TAB; Start 07/24/18 at 21:01 Aspirin (Aspirin) 81 mg DAILY PO Last administered on 07/30/18at 09:51; Admin Dose 81 MG; Start 07/24/18 at 21:01 Docusate Sodium (Colace) 250 mg DAILY PO Last administered on 07/30/18 09:51; Admin Dose 250 MG; Start 07/24/18 at 21:01 Amlodipine Besylate (Norvasc) 5 mg BID PO Last administered on 07/30/18 09:53; Admin Dose 5 MG; Start 07/24/18 at 22:10 Atorvastatin Calcium (Lipitor) 20 mg QHS PO Last administered on 07/29/18 20:30; Admin Dose 20 MG; Start 07/24/18 at 22:10 Hydralazine HCl (Apresoline) 50 mg BID PO Last administered on 07/30/18 09:52; Admin Dose 50 MG; Start 07/24/18 at 22:11 Losartan Potassium (Cozaar) 50 mg BID PO Last administered on 07/30/18 09:52; Admin Dose 50 MG; Start 07/24/18 at 22:11 Tamsulosin HCl (Flomax) 0.4 mg HS PO Last administered on 07/29/18 20:29; Admin Dose 0.4 MG; Start 07/24/18 at 22:11 Magnesium Hydroxide (Milk Of Mag) 30 ml BID PRN PO CONSTIPATION; Start 07/25/18 at 05:00 Lactulose (Enulose) 20 gm DAILY PRN PO CONSTIPATION; Start 07/25/18 at 05:00 Bisacodyl (Dulcolax Supp) 10 mg DAILY PRN [place] CONSTIPATION; Start 07/25/18 at 05:00 Acetaminophen (Tylenol Tab) 650 mg Q6H PRN PO MILD PAIN(1-3)OR ELEVATED TEMP Last administered on 07/30/18at 04:03; Admin Dose 650 MG; Start 07/25/18 at 13:00 Enoxaparin Sodium (Lovenox) 40 mg DAILY SC Last administered on 07/30/18 09:51; Admin Dose 40 MG; Start 07/26/18 at 09:00 Pantoprazole (Protonix Tab) 40 mg BID@0600,1800 PO Last administered on 07/30/18 06:22; Admin Dose 40 MG; Start 07/25/18 at 18:00 Zolpidem Tartrate (Ambien) 5 mg HS PRN PO INSOMNIA Last administered on 07/29/18 21:56; Admin Dose 5 MG; Start 07/28/18 at 17:30 Simethicone (Mylicon) 160 mg Q6H PRN PO DISTENSION/GAS/BLOATING; Start 07/30/18 at 11:30 Allergies: Coded Allergies: No Known Allergy (Unverified , 07/13/18) Past Surgical History Past Surgical Hx: bowel resection, endoscopy (Colonoscopy) Social History Alcohol Use: rarely Smoking Status: Former smoker Exam/Review of Systems Vital Signs Vitals Vital Signs Date Temp Pulse Resp B/P (MAP) Pulse Ox O2 O2 Flow FiO2 Time Delivery Rate 07/30/18 98.1 76 18 153/71 95 Room Air 07:30 (98) Intake and Output 07/29/18 07/29/18 07/30/18 1515:00 23:00 07:00 IntakeIntake Total 150 ml 1100 ml OutputOutput Total 450 ml 800 ml BalanceBalance -300 ml 300 ml Exam Constitutional: alert Psych: no complaints Head: normocephalic, atraumatic Eyes: nl conjunctiva ENMT: nl external ears & nose Neck: supple, non-tender Respiratory: normal air movement; No wheezing Cardiovascular: No jugular venous distention (JVD) Gastrointestinal: soft, other (Colostomy) Genitourinary - Male: nl penis, nl scrotum, other (Rectal exam: Prostate is soft) Musculoskeletal: nl extremities to inspection Extremities: No calf tenderness Neurological: nl mental status Skin: nl turgor Medications Medications Current Medications Folic Acid (Folic Acid) 1 mg DAILY PO Last administered on 07/30/18at 09:51; Admin Dose 1 MG; Start 07/24/18 at 21:01 Acetaminophen/ Hydrocodone Bitart ([place] (5/325)) 1 tab Q4H PRN PO MODERATE PAIN LEVEL 4-6 Last administered on 07/30/18at 06:21; Admin Dose 1 TAB; Start 07/24/18 at 21:01 Aspirin (Aspirin) 81 mg DAILY PO Last administered on 07/30/18at 09:51; Admin Dose 81 MG; Start 07/24/18 at 21:01 Docusate Sodium (Colace) 250 mg DAILY PO Last administered on 07/30/18at 09:51; Admin Dose 250 MG; Start 07/24/18 at 21:01 Amlodipine Besylate (Norvasc) 5 mg BID PO Last administered on 07/30/18at 09:53; Admin Dose 5 MG; Start 07/24/18 at 22:10 Atorvastatin Calcium (Lipitor) 20 mg QHS PO Last administered on 07/29/18 20:30; Admin Dose 20 MG; Start 07/24/18 at 22:10 Hydralazine HCl (Apresoline) 50 mg BID PO Last administered on 07/30/18 09:52; Admin Dose 50 MG; Start 07/24/18 at 22:11 Losartan Potassium (Cozaar) 50 mg BID PO Last administered on 07/30/18 09:52; Admin Dose 50 MG; Start 07/24/18 at 22:11 Tamsulosin HCl (Flomax) 0.4 mg HS PO Last administered on 07/29/18 20:29; Admin Dose 0.4 MG; Start 07/24/18 at 22:11 Magnesium Hydroxide (Milk Of Mag) 30 ml BID PRN PO CONSTIPATION; Start 07/25/18 at 05:00 Lactulose (Enulose) 20 gm DAILY PRN PO CONSTIPATION; Start 07/25/18 at 05:00 Bisacodyl (Dulcolax Supp) 10 mg DAILY PRN [place] CONSTIPATION; Start 07/25/18 at 05:00 Acetaminophen (Tylenol Tab) 650 mg Q6H PRN PO MILD PAIN(1-3)OR ELEVATED TEMP Last administered on 07/30/18at 04:03; Admin Dose 650 MG; Start 07/25/18 at 13:00 Enoxaparin Sodium (Lovenox) 40 mg DAILY SC Last administered on 07/30/18 09:51; Admin Dose 40 MG; Start 07/26/18 at 09:00 Pantoprazole (Protonix Tab) 40 mg BID@0600,1800 PO Last administered on 07/30/18 06:22; Admin Dose 40 MG; Start 07/25/18 at 18:00 Zolpidem Tartrate (Ambien) 5 mg HS PRN PO INSOMNIA Last administered on 07/29/18 21:56; Admin Dose 5 MG; Start 07/28/18 at 17:30 Simethicone (Mylicon) 160 mg Q6H PRN PO DISTENSION/GAS/BLOATING; Start 07/30/18 at 11:[address] scan of the abdomen and pelvis: Status post resection rectosigmoid junction. Diffuse distension of large and small bowel loops with air-fluid levels. Transition caliber bowel at the an anastomosis. Question stricture versus residual or recurrent mass. Consider sigmoidoscopy for further evaluation if clinically indicated. Left renal cyst. No further workup required. Vascular calcifications. L5-S1 degenerative disc disease. The prostate gland is large and measures about 56 mm in transverse and 44 mm in AP. SUSAN CAMPO MD Jul 30, 2018 13:20
[2018-07-30] MEDS: TAMSULOSIN (SR) 0.4 MG CAP PO SCH ×2 (13:57→20:24)
[2018-07-30 14:00] VITALS: BP 143/65; PULSE 74; RESP 20
--- NOTE | 2018-07-30 17:36 | PN ---
Date/Time of Note Date/Time of Note DATE: 07/30/18 TIME: 17:35 Assessment/Plan VTE Prophylaxis Risk score (from Nsg)>0 risk: 6 SCD applied (from Nsg): Yes Pharmacological prophylaxis: heparin Lines/Catheters IV Catheter Type (from Nrsg): PICC Line Central line still needed: Yes Urinary Cath still in place: Yes Reason Cath still needed: urinary retention Assessment/Plan Hospital Course 68 yo M with hx of colon ca in the past who presented with Diarrhea with nausea/vomiting and subsequently finding new mass and after ex lap, found to be recurrent adenocarcinoma of the rectum. Recurrent adenocarcinoma of the rectum -Found on exploratory laparotomy during last admission, -Oncology is following patient and suggest follow-up with possible chemo and other intervention after rehab -Status post colostomy bag -Follow-up with surgery after rehab History of colon cancer -Recurrent colon cancer, patient has a history of refusing treatment in the past, possible okay with treatment going on the future, however will defer to oncology Acute urinary retention - trial of void today History of CVA -No significant residual deficits Hypertension -Continue home meds Dyslipidemia -Continue home meds Questionable remote seizure disorder -Monitor Disposition -In acute rehab unit. -patient's family requests patient not be given strong pain medication as he has mood changes Result Diagram: 07/28/18 0952 07/27/18 0818 Results 24hrs Laboratory Tests Test 07/30/18 14:25 Prostate Specific Antigen 3.0 Subjective 24 Hr Interval Summary Free Text/Dictation Wants to go home tomorrow he says Upset about the smith Exam/Review of Systems Vital Signs Vitals Vital Signs Date Temp Pulse Resp B/P (MAP) Pulse Ox O2 O2 Flow FiO2 Time Delivery Rate 07/30/18 97.6 74 20 143/65 96 Room Air 14:00 (91) Intake and Output 07/29/18 07/29/18 07/30/18 1515:00 23:00 07:00 IntakeIntake Total 150 ml 1100 ml OutputOutput Total 450 ml 800 ml BalanceBalance -300 ml 300 ml Medications Medications Current Medications Folic Acid (Folic Acid) 1 mg DAILY PO Last administered on 07/30/18at 09:51; Admin Dose 1 MG; Start 07/24/18 at 21:01 Acetaminophen/ Hydrocodone Bitart ([place] (5/325)) 1 tab Q4H PRN PO MODERATE PAIN LEVEL 4-6 Last administered on 07/30/18 16:33; Admin Dose 1 TAB; Start 07/24/18 at 21:01 Aspirin (Aspirin) 81 mg DAILY PO Last administered on 07/30/18 09:51; Admin Dose 81 MG; Start 07/24/18 at 21:01 Docusate Sodium (Colace) 250 mg DAILY PO Last administered on 07/30/18 09:51; Admin Dose 250 MG; Start 07/24/18 at 21:01 Amlodipine Besylate (Norvasc) 5 mg BID PO Last administered on 07/30/18 09:53; Admin Dose 5 MG; Start 07/24/18 at 22:10 Atorvastatin Calcium (Lipitor) 20 mg QHS PO Last administered on 07/29/18 20:30; Admin Dose 20 MG; Start 07/24/18 at 22:10 Hydralazine HCl (Apresoline) 50 mg BID PO Last administered on 07/30/18 09:52; Admin Dose 50 MG; Start 07/24/18 at 22:11 Losartan Potassium (Cozaar) 50 mg BID PO Last administered on 07/30/18 09:52; Admin Dose 50 MG; Start 07/24/18 at 22:11 Magnesium Hydroxide (Milk Of Mag) 30 ml BID PRN PO CONSTIPATION; Start 07/25/18 at 05:00 Lactulose (Enulose) 20 gm DAILY PRN PO CONSTIPATION; Start 07/25/18 at 05:00 Bisacodyl (Dulcolax Supp) 10 mg DAILY PRN [place] CONSTIPATION; Start 07/25/18 at 05:00 Acetaminophen (Tylenol Tab) 650 mg Q6H PRN PO MILD PAIN(1-3)OR ELEVATED TEMP Last administered on 07/30/18 04:03; Admin Dose 650 MG; Start 07/25/18 at 13:00 Enoxaparin Sodium (Lovenox) 40 mg DAILY SC Last administered on 07/30/18 09:51; Admin Dose 40 MG; Start 07/26/18 at 09:00 Pantoprazole (Protonix Tab) 40 mg BID@0600,1800 PO Last administered on 07/30/18 06:22; Admin Dose 40 MG; Start 07/25/18 at 18:00 Zolpidem Tartrate (Ambien) 5 mg HS PRN PO INSOMNIA Last administered on 07/29/18 21:56; Admin Dose 5 MG; Start 07/28/18 at 17:30 Simethicone (Mylicon) 160 mg Q6H PRN PO DISTENSION/GAS/BLOATING Last adm inistered on 07/30/18 13:58; Admin Dose 160 MG; Start 07/30/18 at 11:30 Tamsulosin HCl (Flomax) 0.4 mg BID PO Last administered on 07/30/18 13:57; Admin Dose 0.4 MG; Start 07/30/18 at 13:30 NITA SILVA MD Jul 30, 2018 17:36
--- NOTE | 2018-07-30 19:00 | NUR ---
Patient in bed accompanied by . Offered TV & Endorseducational materials for recreational activities. Alert, oriented x 3 with periods of confusion. No SOB. Complained of pain so given pain medication. Relieved after 30 minutes. No adverse reaction noted with colostomy bag use & replacement. Endorsed to Magdi/Nahid RN to call Dr Peck tomorrow to inquire when will the smith catheter be removed because the family wants him to go home without smith. Dr Leonard & Dr Alcala wants smith to be discontinued. Kept clean & dry. All due meds given. Call light within reach. Bed alarm on & in low position. Kept comfortable.
[2018-07-30] MEDS: ATORVASTATIN 20 MG TAB PO SCH (20:25)
[2018-07-30 20:34] VITALS: BP 144/65; PULSE 68; RESP 18
[2018-07-31 02:24] VITALS: BP 151/72; PULSE 70; RESP 18
[2018-07-31] MEDS: HYDROCODONE/APAP (5/325) TAB PO PRN ×3 (03:48→20:28)
--- NOTE | 2018-07-31 06:00 | NUR ---
End of Shift Note During the shift, colostomy bag and abdominal dressing changed. PRN [place] 5/325 1 tab PO given as PRN for pain was effective. Bed on lowest position, side rails up 2x, bed alarm on and call light within reach. will continue to monitor
[2018-07-31] MEDS: PANTOPRAZOLE (EC) 40 MG TAB PO SCH ×2 (06:23→17:25)
[2018-07-31 07:00] VITALS: BP 155/55; PULSE 77; RESP 18
[2018-07-31] MEDS: ENOXAPARIN 40 MG/0.4 ML SYG SC SCH (08:07)
[2018-07-31] MEDS: TAMSULOSIN (SR) 0.4 MG CAP PO SCH ×2 (08:08→20:27)
[2018-07-31] MEDS: FOLIC ACID 1 MG TAB PO SCH (08:08)
[2018-07-31] MEDS: AMLODIPINE 5 MG TAB PO SCH ×2 (08:08→20:27)
[2018-07-31] MEDS: ASPIRIN 81 MG TAB PO SCH (08:08)
[2018-07-31] MEDS: DOCUSATE SODIUM 250 MG CAP PO SCH (08:09)
[2018-07-31] MEDS: LOSARTAN 50 MG TAB PO SCH ×2 (08:09→20:26)
--- NOTE | 2018-07-31 13:14 | PN ---
Date/Time of Note Date/Time of Note DATE: 07/31/18 TIME: 13:13 Subjective Family reports they would like to work towards home soon Objective Vital Signs Date Temp Pulse Resp B/P (MAP) Pulse Ox O2 O2 Flow FiO2 Time Delivery Rate 07/31/18 97.7 77 18 155/55 94 Room Air 07:00 (88) Intake and Output 07/30/18 07/30/18 07/31/18 1515:00 23:00 07:00 IntakeIntake Total 100 ml 1300 ml 50 ml OutputOutput Total 650 ml 1400 ml 1350 ml BalanceBalance -550 ml -100 ml -1300 ml Exam pulm-cta abd-soft mod/min Results/Medications Result Diagram: 07/28/18 0952 07/27/18 0818 Results 24 hrs Laboratory Tests Test 07/30/18 14:25 Prostate Specific Antigen 3.0 Medications Current Medications Folic Acid (Folic Acid) 1 mg DAILY PO Last administered on 07/31/18 08:08; Admin Dose 1 MG; Start 07/24/18 at 21:01 Acetaminophen/ Hydrocodone Bitart ([place] (5/325)) 1 tab Q4H PRN PO MODERATE PAIN LEVEL 4-6 Last administered on 07/31/18 03:48; Admin Dose 1 TAB; Start 07/24/18 at 21:01 Aspirin (Aspirin) 81 mg DAILY PO Last administered on 07/31/18 08:08; Admin Dose 81 MG; Start 07/24/18 at 21:01 Docusate Sodium (Colace) 250 mg DAILY PO Last administered on 07/31/18 08:09; Admin Dose 250 MG; Start 07/24/18 at 21:01 Amlodipine Besylate (Norvasc) 5 mg BID PO Last administered on 07/31/18 08:08; Admin Dose 5 MG; Start 07/24/18 at 22:10 Atorvastatin Calcium (Lipitor) 20 mg QHS PO Last administered on 07/30/18 20:25; Admin Dose 20 MG; Start 07/24/18 at 22:10 Hydralazine HCl (Apresoline) 50 mg BID PO Last administered on 07/31/18 08:08; Admin Dose 50 MG; Start 07/24/18 at 22:11 Losartan Potassium (Cozaar) 50 mg BID PO Last administered on 07/31/18 08:09; Admin Dose 50 MG; Start 07/24/18 at 22:11 Magnesium Hydroxide (Milk Of Mag) 30 ml BID PRN PO CONSTIPATION; Start 07/25/18 at 05:00 Lactulose (Enulose) 20 gm DAILY PRN PO CONSTIPATION; Start 07/25/18 at 05:00 Bisacodyl (Dulcolax Supp) 10 mg DAILY PRN [place] CONSTIPATION; Start 07/25/18 at 05:00 Acetaminophen (Tylenol Tab) 650 mg Q6H PRN PO MILD PAIN(1-3)OR ELEVATED TEMP Last administered on 07/30/18 04:03; Admin Dose 650 MG; Start 07/25/18 at 13:00 Enoxaparin Sodium (Lovenox) 40 mg DAILY SC Last administered on 07/31/18 08:07; Admin Dose 40 MG; Start 07/26/18 at 09:00 Pantoprazole (Protonix Tab) 40 mg BID@0600,1800 PO Last administered on 07/31/18 06:23; Admin Dose 40 MG; Start 07/25/18 at 18:00 Zolpidem Tartrate (Ambien) 5 mg HS PRN PO INSOMNIA Last administered on at 21:56; Admin Dose 5 MG; Start 07/28/18 at 17:30 Simethicone (Mylicon) 160 mg Q6H PRN PO DISTENSION/GAS/BLOATING Last administered on 07/31/18 03:49; Admin Dose 160 MG; Start 07/30/18 at 11:30 Tamsulosin HCl (Flomax) 0.4 mg BID PO Last administered on 07/31/18 08:08; Admin Dose 0.4 MG; Start 07/30/18 at 13:30 Assessment/Plan Additional Assessment/Plan Rehab- Debility secondary to large bowel obstruction status post resection and colostomy. Continue rehab program, and work towrds dc when cleared by GI-colostomy care training - Urinary retention, followed by urology acute pain syndrome- improving. Acute kidney injury-improved History of CVA. History of seizure disorder. Hyperlipidemia. SHEILA MARIE MD Jul 31, 2018 13:14
[2018-07-31 14:00] VITALS: BP 126/60; PULSE 69; RESP 18
--- NOTE | 2018-07-31 18:52 | NUR ---
Patient is alert and breathing even. no SOB. patient c/o pain. PRN [place] 1 tab given and was effective. Patient with colostomy bag. no s/sx of malfunction. patient with incision on mid abd. no bleeding. dressing is dry and intact. no bleeding. Patient with f/c patent and intact. draining yellow urine. is at bedside most of the time. call light within reach. reminded patient to call when needed help.
--- NOTE | 2018-07-31 19:11 | CONS ---
DATE OF ADMISSION: 07/24/2018 DATE OF CONSULTATION: 07/31/2018 TYPE OF CONSULTATION: Psychological. REFERRING PHYSICIAN: Sheila Cheng MD CONSULTING PSYCHOLOGIST: Taylor Vazquez, PhD REASON FOR CONSULTATION: This consultation was requested by Dr. Bryan Cheng in order to evaluate t he cognitive and emotional functioning of this patient related to his present medical condition. HISTORY OF PRESENT ILLNESS: The patient is a 68-year-old male. The patient does have a complicated medical history which includes having colon cancer. The patient was admitted with nausea, vomiting a nd abdominal pain. The patient was complaining of abdominal pain when he was evaluated. The patient does speak mainly Amharic and this evaluation was completed in Amharic. The patient's was pres ent with the patient's permission and she did help him with some of the answers. The patient did hav e difficulty with some of the questions and answers. The patient is motivated to get better and does want to return to his previous level of functioning. FAMILY AND SOCIAL HISTORY: The patient lives in a home in [place]. He lives [facility] his [facility] The patient does want to return there after discharge. MEDICATIONS: The patient is currently not on any psychotropic medications. SUBSTANCE USE: The patient reports that he does not smoke. The patient reports that he does not use alcohol or other drugs. MENTAL STATUS EXAMINATION: APPEARANCE: The patient was seen in bed. Appears to be of average height and weight. The patient i s right-handed. BEHAVIOR: The patient was cooperative during the consultation. The patient did have difficulty with some of the questions and seemed confused to be able to answer. The patient's did help him at times. MOOD AND AFFECT: The patient's mood appears to be somewhat depressed. Affect did appear to be sligh tly anxious. The patient's did report that he was both depressed and anxious. PERCEPTION: The patient has no hallucinations or delusions. The patient was alert to person, but no t exactly to place, situation and time. MEMORY AND COGNITION: The patient's memory and cognition appear to have some impairments. He was ab le to say that the name of the [facility] as [facility]. He could not come up with [facility]. He did not know the month or the year. He was unable to say who the President of [facility] is. He could not do any serial 7 subtractions from 100. He was able to spell the word "window" forw jhon but could not spell it backwards and he needed coaching from his to be able to do it forward . It appears that the patient does have some cognitive dysfunction at the present time. INTELLIGENCE: Intelligence appears to fall in the average range when he is functioning adequately. INSIGHT: Fair. JUDGMENT: Fair. THOUGHT CONTENT: The patient is concerned about his present medical condition. The patient does wan t to return to his previous level of functioning. The patient is motivated and does feel that he can get better. DISCUSSION: The patient can likely benefit from some cognitive/behavioral psychotherapy while he is on the unit. The psychotherapy would focus on his underlying level of cognitive dysfunction as well as his mood. DIAGNOSTIC IMPRESSION: 1. F06.31, mood disorder due to multiple medical problems with depressive features. 2. F06.8, cognitive disorder, not otherwise specified. Thank you very much, Dr. Bryan Cheng, for referring this individual. Please do not hesitate to steven ortiz if you have additional questions. Dictated By: TAYLOR VAZQUEZ PHD RK/ABDOULAYE Conf#: [id number] DID#: [id number] CC: SHEILA CHENG MD; SUSAN CAMPO MD; FAHAD BARDALES MD;*End*
--- NOTE | 2018-07-31 19:50 | PN ---
Date/Time of Note Date/Time of Note DATE: 07/31/18 TIME: 19:50 Assessment/Plan VTE Prophylaxis Risk score (from Nsg)>0 risk: 5 SCD applied (from Nsg): Yes Pharmacological prophylaxis: heparin Lines/Catheters IV Catheter Type (from Nrsg): PICC Line Central line still needed: Yes Urinary Cath still in place: Yes Reason Cath still needed: urinary retention Assessment/Plan Hospital Course 68 yo M with hx of colon ca in the past who presented with Diarrhea with nausea/vomiting and subsequently finding new mass and after ex lap, found to be recurrent adenocarcinoma of the rectum. Recurrent adenocarcinoma of the rectum -Found on exploratory laparotomy during last admission, -Oncology is following patient and suggest follow-up with possible chemo and other intervention after rehab -Status post colostomy bag -Follow-up with surgery after rehab History of colon cancer -Recurrent colon cancer, patient has a history of refusing treatment in the past, possible okay with treatment going on the future, however will defer to oncology Acute urinary retention - trial of void today History of CVA -No significant residual deficits Hypertension -Continue home meds Dyslipidemia -Continue home meds Questionable remote seizure disorder -Monitor Disposition -In acute rehab unit. -patient's family requests patient not be given strong pain medication as he has mood changes Result Diagram: 07/28/18 0952 07/27/18 0818 Exam/Review of Systems Vital Signs Vitals Vital Signs Date Temp Pulse Resp B/P (MAP) Pulse Ox O2 O2 Flow FiO2 Time Delivery Rate 07/31/18 97.9 69 18 126/60 95 Room Air 14:00 (82) Intake and Output 07/30/18 07/30/18 07/31/18 1515:00 23:00 07:00 IntakeIntake Total 100 ml 1300 ml 50 ml OutputOutput Total 650 ml 1400 ml 1350 ml BalanceBalance -550 ml -100 ml -1300 ml Medications Medications Current Medications Folic Acid (Folic Acid) 1 mg DAILY PO Last administered on 07/31/18at 08:08; Admin Dose 1 MG; Start 07/24/18 at 21:01 Acetaminophen/ Hydrocodone Bitart ([place] (5/325)) 1 tab Q4H PRN PO MODERATE PAIN LEVEL 4-6 Last administered on 07/31/18at 15:20; Admin Dose 1 TAB; Start 07/24/18 at 21:01 Aspirin (Aspirin) 81 mg DAILY PO Last administered on 07/31/18 08:08; Admin Dose 81 MG; Start 07/24/18 at 21:01 Docusate Sodium (Colace) 250 mg DAILY PO Last administered on 07/31/18 08:09; Admin Dose 250 MG; Start 07/24/18 at 21:01 Amlodipine Besylate (Norvasc) 5 mg BID PO Last administered on 07/31/18 08:08; Admin Dose 5 MG; Start 07/24/18 at 22:10 Atorvastatin Calcium (Lipitor) 20 mg QHS PO Last administered on 07/30/18 20:25; Admin Dose 20 MG; Start 07/24/18 at 22:10 Hydralazine HCl (Apresoline) 50 mg BID PO Last administered on 07/31/18 08:08; Admin Dose 50 MG; Start 07/24/18 at 22:11 Losartan Potassium (Cozaar) 50 mg BID PO Last administered on 07/31/18 08:09; Admin Dose 50 MG; Start 07/24/18 at 22:11 Magnesium Hydroxide (Milk Of Mag) 30 ml BID PRN PO CONSTIPATION; Start 07/25/18 at 05:00 Lactulose (Enulose) 20 gm DAILY PRN PO CONSTIPATION; Start 07/25/18 at 05:00 Bisacodyl (Dulcolax Supp) 10 mg DAILY PRN [place] CONSTIPATION; Start 07/25/18 at 05:00 Acetaminophen (Tylenol Tab) 650 mg Q6H PRN PO MILD PAIN(1-3)OR ELEVATED TEMP Last administered on 07/30/18 04:03; Admin Dose 650 MG; Start 07/25/18 at 13:00 Enoxaparin Sodium (Lovenox) 40 mg DAILY SC Last administered on 07/31/18 08:07; Admin Dose 40 MG; Start 07/26/18 at 09:00 Pantoprazole (Protonix Tab) 40 mg BID@0600,1800 PO Last administered on 07/31/18 17:25; Admin Dose 40 MG; Start 07/25/18 at 18:00 Zolpidem Tartrate (Ambien) 5 mg HS PRN PO INSOMNIA Last administered on 07/29/18 21:56; Admin Dose 5 MG; Start 1/20/19 at 17:30 Simethicone (Mylicon) 160 mg Q6H PRN PO DISTENSION/GAS/BLOATING Last administered on 07/31/18at 03:49; Admin Dose 160 MG; Start 07/30/18 at 11:30 Tamsulosin HCl (Flomax) 0.4 mg BID PO Last administered on 07/31/18at 08:08; Admin Dose 0.4 MG; Start 07/30/18 at 13:30 NITA SILVA MD Jul 31, 2018 19:50
[2018-07-31 20:14] VITALS: BP 145/65; PULSE 77; RESP 18
[2018-07-31] MEDS: ATORVASTATIN 20 MG TAB PO SCH (20:26)
[2018-07-31] MEDS: ZOLPIDEM 5 MG TAB PO PRN (22:16)
[2018-08-01 02:00] VITALS: BP 120/76; PULSE 74; RESP 18
--- NOTE | 2018-08-01 05:25 | NUR ---
EOSS. NO ACUTE EVENTS OVERNIGHT. COLOSTOMY WORKING GOOD, F/C DRAINING AT GRAVITY. SPOUSE AT THE BEDSIDE. FALLS PRECAUTIONS OBSERVED. CONTINUE WITH PLAN OF CARE.
[2018-08-01] MEDS: PANTOPRAZOLE (EC) 40 MG TAB PO SCH ×2 (06:08→17:57)
--- NOTE | 2018-08-01 06:46 | NUR ---
COLOSTOMY BAG AND ABDOMINAL DRESSING WAS CHANGED-SOILED. TOLERATED WELL.
[2018-08-01 07:57] VITALS: BP 153/72; PULSE 70; RESP 18
[2018-08-01] MEDS: HYDROCODONE/APAP (5/325) TAB PO PRN ×2 (09:05→19:57)
[2018-08-01] MEDS: FOLIC ACID 1 MG TAB PO SCH (09:05)
[2018-08-01] MEDS: DOCUSATE SODIUM 250 MG CAP PO SCH (09:05)
[2018-08-01] MEDS: TAMSULOSIN (SR) 0.4 MG CAP PO SCH ×2 (09:05→22:10)
[2018-08-01] MEDS: ASPIRIN 81 MG TAB PO SCH (09:05)
[2018-08-01] MEDS: LOSARTAN 50 MG TAB PO SCH ×2 (09:06→22:18)
[2018-08-01] MEDS: AMLODIPINE 5 MG TAB PO SCH ×2 (09:06→22:20)
[2018-08-01] MEDS: ENOXAPARIN 40 MG/0.4 ML SYG SC SCH (09:07)
--- NOTE | 2018-08-01 11:51 | CONS ---
Consult Date/Type/Reason Admit Date/Time Jul 24, 2018 at 18:47 Initial Consult Date 07/30/18 Type of Consultation: IM Requesting Provider: FAHAD BARDALES MD, [facility] Date/Time of Note DATE: 08/01/18 TIME: 11:49 Subjective Sitting up in bed, requesting about discharge Objective Vitals Vital Signs Date Temp Pulse Resp B/P (MAP) Pulse Ox O2 O2 Flow FiO2 Time Delivery Rate 08/01/18 97.3 70 18 153/72 94 07:57 (99) 08/01/18 Room Air 02:00 Intake and Output 07/31/18 07/31/18 08/01/18 1414:59 22:59 06:59 IntakeIntake Total 1200 ml 720 ml 1200 ml OutputOutput Total 800 ml BalanceBalance 400 ml 720 ml 1200 ml Exam GENERAL: VITAL SIGNS: per chart NECK: Supple. No JVD or lymphadenopathy. CARDIAC EXAM: S1, S2. No added sounds or murmurs. CHEST: clear bilaterally, No added sounds, rales or wheezes ABDOMEN: Soft, nontender. No guarding or rebound. EXTREMITIES: No cyanosis, clubbing or edema. NEUROLOGIC: Generalized weakness. No focal deficits. Well-nourished well- developed gentleman Results/Medications Result Diagram: 07/28/18 0952 Home Meds Active Scripts Loperamide Hcl* (Imodium*) 2 Mg Capsule, 2 MG PO .AFTER EA LOOSE BM PRN for DIARRHEA, #10 TAB Prov:JENNIFER MANRIQUE MD 07/13/18 Ondansetron (Ondansetron Odt) 4 Mg Tab.rapdis, 4 MG PO Q6H PRN for NAUSEA AND/OR VOMITING, #10 TAB Prov:JENNIFER MANRIQUE MD 07/13/18 Reported Medications Folic Acid* (Folic Acid*) 1 Mg Tablet, 1 MG PO DAILY, TAB 09/11/16 Atorvastatin Calcium* (Atorvastatin Calcium*) 20 Mg Tablet, 20 MG PO QHS, #30 TAB 09/11/16 Aspirin* (Aspirin* EC) 81 Mg Tablet.dr, 81 MG PO DAILY, TAB 09/11/16 Medications Current Medications Folic Acid (Folic Acid) 1 mg DAILY PO Last administered on 08/01/18at 09:05; Admin Dose 1 MG; Start 07/24/18 at 21:01 Acetaminophen/ Hydrocodone Bitart ([place] (5/325)) 1 tab Q4H PRN PO MODERATE PAIN LEVEL 4-6 Last administered on 08/01/18 09:05; Admin Dose 1 TAB; Start 07/24/18 at 21:01 Aspirin (Aspirin) 81 mg DAILY PO Last administered on 08/01/18 09:05; Admin Dose 81 MG; Start 07/24/18 at 21:01 Docusate Sodium (Colace) 250 mg DAILY PO Last administered on 08/01/18 09:05; Admin Dose 250 MG; Start 07/24/18 at 21:01 Amlodipine Besylate (Norvasc) 5 mg BID PO Last administered on 08/01/18 09:06; Admin Dose 5 MG; Start 07/24/18 at 22:10 Atorvastatin Calcium (Lipitor) 20 mg QHS PO Last administered on 07/31/18 20:26; Admin Dose 20 MG; Start 07/24/18 at 22:10 Hydralazine HCl (Apresoline) 50 mg BID PO Last administered on 08/01/18 09:06; Admin Dose 50 MG; Start 07/24/18 at 22:11 Losartan Potassium (Cozaar) 50 mg BID PO Last administered on 08/01/18 09:06; Admin Dose 50 MG; Start 07/24/18 at 22:11 Magnesium Hydroxide (Milk Of Mag) 30 ml BID PRN PO CONSTIPATION; Start 07/25/18 at 05:00 Lactulose (Enulose) 20 gm DAILY PRN PO CONSTIPATION; Start 07/25/18 at 05:00 Bisacodyl (Dulcolax Supp) 10 mg DAILY PRN [place] CONSTIPATION; Start 07/25/18 at 05:00 Acetaminophen (Tylenol Tab) 650 mg Q6H PRN PO MILD PAIN(1-3)OR ELEVATED TEMP Last administered on 07/30/18 04:03; Admin Dose 650 MG; Start 07/25/18 at 13:00 Enoxaparin Sodium (Lovenox) 40 mg DAILY SC Last administered on 08/01/18 09:07; Admin Dose 40 MG; Start 07/26/18 at 09:00 Pantoprazole (Protonix Tab) 40 mg BID@0600,1800 PO Last administered on 07/10 06:08; Admin Dose 40 MG; Start 07/25/18 at 18:00 Zolpidem Tartrate (Ambien) 5 mg HS PRN PO INSOMNIA Last administered on 07/31/18 22:16; Admin Dose 5 MG; Start 07/28/18 at 17:30 Simethicone (Mylicon) 160 mg Q6H PRN PO DISTENSION/GAS/BLOATING Last administered on 08/01/18 09:07; Admin Dose 160 MG; Start 07/30/18 at 11:30 Tamsulosin HCl (Flomax) 0.4 mg BID PO Last administered on 08/01/18 09:05; Admin Dose 0.4 MG; Start 07/30/18 at 13:30 Assessment/Plan Assessment/Plan (Daily) Hospital Course 68 yo M with hx of colon ca in the past who presented with Diarrhea with nausea/vomiting and subsequently finding new mass and after ex lap, found to be recurrent adenocarcinoma of the rectum. Recurrent adenocarcinoma of the rectum -Found on exploratory laparotomy during last admission, -Oncology is following patient and suggest follow-up with possible chemo and other intervention after rehab -Status post colostomy bag -Follow-up with surgery after rehab History of colon cancer -Recurrent colon cancer, patient has a history of refusing treatment in the past, possible okay with treatment going on the future, however will defer to oncology Acute urinary retention - trial of void today History of CVA -No significant residual deficits Hypertension -Continue home meds Dyslipidemia -Continue home meds Questionable remote seizure disorder -Monitor Disposition anticipate dc home when ready. FAHAD BARDALES MD[facility] Aug 01, 2018 11:51
--- NOTE | 2018-08-01 12:18 | PN ---
Date/Time of Note Date/Time of Note DATE: 08/01/18 TIME: 12:18 Subjective Comfortable Objective Vital Signs Date Temp Pulse Resp B/P (MAP) Pulse Ox O2 O2 Flow FiO2 Time Delivery Rate 08/01/18 97.3 70 18 153/72 94 07:57 (99) 08/01/18 Room Air 02:00 Intake and Output 07/31/18 07/31/18 08/01/18 1515:00 23:00 07:00 IntakeIntake Total 1200 ml 720 ml 1200 ml OutputOutput Total 800 ml BalanceBalance 400 ml 720 ml 1200 ml Exam pulm-cta abd-soft min assist ambulation Results/Medications Result Diagram: 07/28/18 0952 Medications Current Medications Folic Acid (Folic Acid) 1 mg DAILY PO Last administered on 08/01/18 09:05; Admin Dose 1 MG; Start 07/24/18 at 21:01 Acetaminophen/ Hydrocodone Bitart ([place] (5/325)) 1 tab Q4H PRN PO MODERATE PAIN LEVEL 4-6 Last administered on 08/01/18 09:05; Admin Dose 1 TAB; Start 07/24/18 at 21:01 Aspirin (Aspirin) 81 mg DAILY PO Last administered on 08/01/18 09:05; Admin Dose 81 MG; Start 07/24/18 at 21:01 Docusate Sodium (Colace) 250 mg DAILY PO Last administered on 08/01/18 09:05; Admin Dose 250 MG; Start 07/24/18 at 21:01 Amlodipine Besylate (Norvasc) 5 mg BID PO Last administered on 08/01/18 09:06; Admin Dose 5 MG; Start 07/24/18 at 22:10 Atorvastatin Calcium (Lipitor) 20 mg QHS PO Last administered on 07/31/18 20:26; Admin Dose 20 MG; Start 07/24/18 at 22:10 Hydralazine HCl (Apresoline) 50 mg BID PO Last administered on 08/01/18 09:06; Admin Dose 50 MG; Start 07/24/18 at 22:11 Losartan Potassium (Cozaar) 50 mg BID PO Last administered on 08/01/18 09:06; Admin Dose 50 MG; Start 07/24/18 at 22:11 Magnesium Hydroxide (Milk Of Mag) 30 ml BID PRN PO CONSTIPATION; Start 07/25/18 at 05:00 Lactulose (Enulose) 20 gm DAILY PRN PO CONSTIPATION; Start 07/25/18 at 05:00 Bisacodyl (Dulcolax Supp) 10 mg DAILY PRN [place] CONSTIPATION; Start 07/25/18 at 05:00 Acetaminophen (Tylenol Tab) 650 mg Q6H PRN PO MILD PAIN(1-3)OR ELEVATED TEMP Last administered on 07/30/18 04:03; Admin Dose 650 MG; Start 07/25/18 at 13:00 Enoxaparin Sodium (Lovenox) 40 mg DAILY SC Last administered on 08/01/18 09:07; Admin Dose 40 MG; Start 07/26/18 at 09:00 Pantoprazole (Protonix Tab) 40 mg BID@0600,1800 PO Last administered on 08/01/18 06:08; Admin Dose 40 MG; Start 07/25/18 at 18:00 Zolpidem Tartrate (Ambien) 5 mg HS PRN PO INSOMNIA Last administered on 07/31/18 22:16; Admin Dose 5 MG; Start 07/28/18 at 17:30 Simethicone (Mylicon) 160 mg Q6H PRN PO DISTENSION/GAS/BLOATING Last administered on 08/01/18 09:07; Admin Dose 160 MG; Start 07/30/18 at 11:30 Tamsulosin HCl (Flomax) 0.4 mg BID PO Last administered on 08/01/18 09:05; Admin Dose 0.4 MG; Start 07/30/18 at 13:30 Assessment/Plan Additional Assessment/Plan Rehab- Debility secondary to large bowel obstruction status post resection and colostomy. Continue rehab program GI-colostomy care training - Urinary retention, followed by urology acute pain syndrome- improving. Acute kidney injury-improved History of CVA. History of seizure disorder. Hyperlipidemia. SHEILA MARIE MD Aug 01, 2018 12:18
--- NOTE | 2018-08-01 13:39 | PN ---
Date/Time of Note Date/Time of Note DATE: 08/01/18 TIME: 13:32 Assessment/Plan VTE Prophylaxis Risk score (from Ns)>0 risk: 8 SCD applied (from Ns): Yes Pharmacological prophylaxis: LMWH Lines/Catheters IV Catheter Type (from Nrsg): PICC Line Central line still needed: No Urinary Cath still in place: Yes Reason Cath still needed: other (indicate) (per primary) Assessment/Plan Assessment/Plan Pt is making progress and may go home early next week. If so, he will likely need chemo/RT and should have a PET scan once he is an outpatient. I will f/u early next week. Result Diagram: 07/28/18 0952 Subjective 24 Hr Interval Summary Free Text/Dictation Pt is working with P.T. and looks better. Exam/Review of Systems Exam Vitals Vital Signs Date Temp Pulse Resp B/P (MAP) Pulse Ox O2 O2 Flow FiO2 Time Delivery Rate 08/01/18 97.3 70 18 153/72 94 07:57 (99) 08/01/18 Room Air 02:00 Intake and Output 07/31/18 07/31/18 08/01/18 1515:00 23:00 07:00 IntakeIntake Total 1200 ml 720 ml 1200 ml OutputOutput Total 800 ml BalanceBalance 400 ml 720 ml 1200 ml Head: normocephalic Eyes: nl conjunctiva Neck: supple Respiratory: clear to auscultation Cardiovascular: regular rate and rhythm Gastrointestinal: soft, non-tender, other (diane removed) BOBBY CABRAL MD Aug 01, 2018 13:39
[2018-08-01 14:35] VITALS: BP 117/56; PULSE 76; RESP 17
--- NOTE | 2018-08-01 16:44 | NUR ---
Called Dr Peck to inquire when will he discontinue the patient's smith catheter because the family wants him to go home without the smith. Spoke to Lexy & she said Dr Peck will call back.
--- NOTE | 2018-08-01 16:50 | NUR ---
Per Dr Peck, he will do rounds today & he will decide if patient is ready to have his smith catheter removed.
--- NOTE | 2018-08-01 17:15 | NUR ---
Patient in bed accompanied by . Offered TV & educational materials for recreational activities. Alert, oriented x 3 with periods of confusion. No SOB. Complained of pain so given PRN pain medication. Relieved after 30 minutes. No adverse reaction noted with colostomy bag use & replacement. Kept clean & dry. All due meds given. Call light within reach. Bed alarm on & in low position. Kept comfortable.
[2018-08-01 20:02] VITALS: BP 122/68; PULSE 72; RESP 17
--- NOTE | 2018-08-01 21:05 | CONS ---
Consult Date/Type/Reason Admit Date/Time Jul 24, 2018 at 18:47 Initial Consult Date 07/30/18 Type of Consultation: Urology Reason for Consultation Urinary retention and hematuria Requesting Provider: FAHAD BARDALES MD, [facility] Date/Time of Note DATE: 08/01/18 TIME: 21:03 Subjective Patient is complaining about his colostomy leaking Objective Vitals Vital Signs Date Temp Pulse Resp B/P (MAP) Pulse Ox O2 O2 Flow FiO2 Time Delivery Rate 08/01/18 98.2 72 17 122/68 93 Room Air 20:02 (86) Intake and Output 07/31/18 07/31/18 08/01/18 1515:00 23:00 07:00 IntakeIntake Total 1200 ml 720 ml 1200 ml OutputOutput Total 800 ml BalanceBalance 400 ml 720 ml 1200 ml Exam Duque catheter is draining clear urine. Results/Medications Result Diagram: 07/28/18 0952 Home Meds Active Scripts Loperamide Hcl* (Imodium*) 2 Mg Capsule, 2 MG PO .AFTER EA LOOSE BM PRN for DIARRHEA, #10 TAB Prov:JENNIFER MANRIQUE MD 07/13/18 Ondansetron (Ondansetron Odt) 4 Mg Tab.rapdis, 4 MG PO Q6H PRN for NAUSEA AND/OR VOMITING, #10 TAB Prov:JENNIFER MANRIQUE MD 07/13/18 Reported Medications Folic Acid* (Folic Acid*) 1 Mg Tablet, 1 MG PO DAILY, TAB 09/11/16 Atorvastatin Calcium* (Atorvastatin Calcium*) 20 Mg Tablet, 20 MG PO QHS, #30 TAB 09/11/16 Aspirin* (Aspirin* EC) 81 Mg Tablet.dr, 81 MG PO DAILY, TAB 09/11/16 Medications Current Medications Folic Acid (Folic Acid) 1 mg DAILY PO Last administered on 08/01/18at 09:05; Admin Dose 1 MG; Start 07/24/18 at 21:01 Acetaminophen/ Hydrocodone Bitart ([place] (5/325)) 1 tab Q4H PRN PO MODERATE PAIN LEVEL 4-6 Last administered on 08/01/18at 19:57; Admin Dose 1 TAB; Start 07/24/18 at 21:01 Aspirin (Aspirin) 81 mg DAILY PO Last administered on 08/01/18 09:05; Admin Dose 81 MG; Start 07/24/18 at 21:01 Docusate Sodium (Colace) 250 mg DAILY PO Last administered on 08/01/18 09:05; Admin Dose 250 MG; Start 07/24/18 at 21:01 Amlodipine Besylate (Norvasc) 5 mg BID PO Last administered on 08/01/18 09:06; Admin Dose 5 MG; Start 07/24/18 at 22:10 Atorvastatin Calcium (Lipitor) 20 mg QHS PO Last administered on 07/31/18 20:26; Admin Dose 20 MG; Start 07/24/18 at 22:10 Hydralazine HCl (Apresoline) 50 mg BID PO Last administered on 08/01/18 09:06; Admin Dose 50 MG; Start 07/24/18 at 22:11 Losartan Potassium (Cozaar) 50 mg BID PO Last administered on 08/01/18 09:06; Admin Dose 50 MG; Start 07/24/18 at 22:11 Magnesium Hydroxide (Milk Of Mag) 30 ml BID PRN PO CONSTIPATION; Start 07/25/18 at 05:00 Lactulose (Enulose) 20 gm DAILY PRN PO CONSTIPATION; Start 07/25/18 at 05:00 Bisacodyl (Dulcolax Supp) 10 mg DAILY PRN [place] CONSTIPATION; Start 07/25/18 at 05:00 Acetaminophen (Tylenol Tab) 650 mg Q6H PRN PO MILD PAIN(1-3)OR ELEVATED TEMP Last administered on 07/30/18 04:03; Admin Dose 650 MG; Start 07/25/18 at 13:00 Enoxaparin Sodium (Lovenox) 40 mg DAILY SC Last administered on 08/01/18 09:07; Admin Dose 40 MG; Start 07/26/18 at 09:00 Pantoprazole (Protonix Tab) 40 mg BID@0600,1800 PO Last administered on 08/01/18 17:57; Admin Dose 40 MG; Start 07/25/18 at 18:00 Zolpidem Tartrate (Ambien) 5 mg HS PRN PO INSOMNIA Last administered on 07/31/18 22:16; Admin Dose 5 MG; Start 07/28/18 at 17:30 Simethicone (Mylicon) 160 mg Q6H PRN PO DISTENSION/GAS/BLOATING Last administered on 08/01/18at 09:07; Admin Dose 160 MG; Start 07/30/18 at 11:30 Tamsulosin HCl (Flomax) 0.4 mg BID PO Last administered on 08/01/18at 09:05; Admin Dose 0.4 MG; Start 07/30/18 at 13:30 Assessment/Plan Hospital Course (Demo Recall) 68-year-old male with history of colon cancer in the past presented to the hospital with diarrhea, nausea and vomiting and was found to have recurrent c olon cancer at the site of the prior anastomosis. He had : 1. Partial intestinal obstruction with diarrhea, nausea, vomiting and weight loss secondary to #2: Now resolved. 2. Sigmoid mass/recurrent colon cancer. - Colonoscopy on 07/16/2018 - Status post Babar procedure with colostomy and exploratory laparotomy 07/20/2018 3. History of colorectal carcinoma stage III-C, status post previous resection at the rectosigmoid junction in 2017. - The patient was recommended to get chemo at that time, but the patient and his son had refused at that time. 4. Acute kidney injury, resolved. 5. History of cerebrovascular accident. 6. Hypertension with fair control. 7. Dyslipidemia. 8. Remote seizure disorder, last seizure of 5 to 6 years ago. The patient was transferred to the rehab unit for further care. He was noted to have hematuria and that happened after a Duque catheter was inserted because he had urinary retention. Patient states that at home before his recent surgeries he was voiding about 4 times at night and every 3-4 hours during the day. His urinary stream was slow. He denies any history of hematuria. He was not taking any medications for his prostate. He is presently on tamsulosin 0.[address] scan that he had on admission shows that he has a large prostate that measured about 56 mm in transverse diameter and 44 mm in AP. The hematuria most likely is related to pulling on the catheter. I did hand irrigate the catheter and got the clots out of the bladder and then the return of the irrigation was clear. At the present time the urine is clear and he no longer had hematuria. Recommendation: We will discontinue the Duque catheter at 6 AM then monitor his voiding and his postvoid residual. Hopefully he will urinate without the need of doing straight catheterization on him. Continue the tamsulosin SUSAN CAMPO MD Aug 01, 2018 21:05
[2018-08-01] MEDS: ATORVASTATIN 20 MG TAB PO SCH (22:10)
[2018-08-01] MEDS: ZOLPIDEM 5 MG TAB PO PRN (22:11)
--- NOTE | 2018-08-01 23:00 | NUR ---
Lower abdomen incision dressing changed and incision covered with tegaderm pad. Colostomy bag changed and it is not leaking.
[2018-08-02 02:00] VITALS: BP 128/72; PULSE 75; RESP 18
[2018-08-02] MEDS: HYDROCODONE/APAP (5/325) TAB PO PRN ×2 (02:37→20:22)
--- NOTE | 2018-08-02 04:45 | NUR ---
Pt slept on and off during night hours, c/o pain over lower abdomen incision, tablet [place] 5mg/325mg by mouth Q4hrs prn pain given x 2 times. Pt is on Duque's catheter draining light jairon color urine. Able to turn position by self. Bed alarm activated for safety, call light and bedside table within reach.
--- NOTE | 2018-08-02 05:04 | NUR ---
Pt report given to Domitila DUBON around 0500am to f/up continuation of care.
[2018-08-02] MEDS: PANTOPRAZOLE (EC) 40 MG TAB PO SCH ×2 (06:23→17:32)
--- NOTE | 2018-08-02 06:30 | NUR ---
COLOSTOMY BAG IS STILL PATENT, NO LEAKING NOTES. D/C F/C PER ORDER. PT TOLERATED WELL. NO BLEEDING NOTED. DENIES PAIN AT THIS TIME.
[2018-08-02 07:00] VITALS: BP 138/65; PULSE 77; RESP 18
[2018-08-02] MEDS: TAMSULOSIN (SR) 0.4 MG CAP PO SCH ×2 (08:11→20:21)
[2018-08-02] MEDS: ASPIRIN 81 MG TAB PO SCH (08:11)
[2018-08-02] MEDS: DOCUSATE SODIUM 250 MG CAP PO SCH (08:11)
[2018-08-02] MEDS: FOLIC ACID 1 MG TAB PO SCH (08:11)
[2018-08-02] MEDS: AMLODIPINE 5 MG TAB PO SCH ×2 (08:14→20:21)
[2018-08-02] MEDS: LOSARTAN 50 MG TAB PO SCH ×2 (08:15→20:22)
[2018-08-02] MEDS: ENOXAPARIN 40 MG/0.4 ML SYG SC SCH (10:21)
--- NOTE | 2018-08-02 10:54 | PN ---
Date/Time of Note Date/Time of Note DATE: 08/02/18 TIME: 10:54 Subjective No new complaints Objective Vital Signs Date Temp Pulse Resp B/P (MAP) Pulse Ox O2 O2 Flow FiO2 Time Delivery Rate 08/02/18 98.1 77 18 138/65 96 Room Air 07:00 (89) Intake and Output 08/01/18 08/01/18 08/02/18 1515:00 23:00 07:00 IntakeIntake Total 100 ml 1200 ml 1740 ml OutputOutput Total 850 ml BalanceBalance 100 ml 350 ml 1740 ml Exam pulm-cta abd-soft min ambulation Results/Medications Medications Current Medications Folic Acid (Folic Acid) 1 mg DAILY PO Last administered on 08/02/18 08:11; Admin Dose 1 MG; Start 07/24/18 at 21:01 Acetaminophen/ Hydrocodone Bitart ([place] (5/325)) 1 tab Q4H PRN PO MODERATE PAIN LEVEL 4-6 Last administered on 08/02/18 02:37; Admin Dose 1 TAB; Start 07/24/18 at 21:01 Aspirin (Aspirin) 81 mg DAILY PO Last administered on 08/02/18 08:11; Admin Dose 81 MG; Start 07/24/18 at 21:01 Docusate Sodium (Colace) 250 mg DAILY PO Last administered on 08/02/18 08:11; Admin Dose 250 MG; Start 07/24/18 at 21:01 Amlodipine Besylate (Norvasc) 5 mg BID PO Last administered on 08/02/18 08:14; Admin Dose 5 MG; Start 07/24/18 at 22:10 Atorvastatin Calcium (Lipitor) 20 mg QHS PO Last administered on 08/01/18 22:10; Admin Dose 20 MG; Start 07/24/18 at 22:10 Hydralazine HCl (Apresoline) 50 mg BID PO Last administered on 08/02/18 08:15; Admin Dose 50 MG; Start 07/24/18 at 22:11 Losartan Potassium (Cozaar) 50 mg BID PO Last administered on 08/02/18 08:15; Admin Dose 50 MG; Start 07/24/18 at 22:11 Magnesium Hydroxide (Milk Of Mag) 30 ml BID PRN PO CONSTIPATION; Start 07/25/18 at 05:00 Lactulose (Enulose) 20 gm DAILY PRN PO CONSTIPATION; Start 07/25/18 at 05:00 Bisacodyl (Dulcolax Supp) 10 mg DAILY PRN [place] CONSTIPATION; Start 07/25/18 at 05:00 Acetaminophen (Tylenol Tab) 650 mg Q6H PRN PO MILD PAIN(1-3)OR ELEVATED TEMP Last administered on 07/30/18 04:03; Admin Dose 650 MG; Start 07/25/18 at 13:00 Enoxaparin Sodium (Lovenox) 40 mg DAILY SC Last administered on 08/02/18 10:21; Admin Dose 40 MG; Start 07/26/18 at 09:00 Pantoprazole (Protonix Tab) 40 mg BID@0600,1800 PO Last administered on 08/02/18 06:23; Admin Dose 40 MG; Start 07/25/18 at 18:00 Zolpidem Tartrate (Ambien) 5 mg HS PRN PO INSOMNIA Last administered on 08/01/18 22:11; Admin Dose 5 MG; Start 07/28/18 at 17:30 Simethicone (Mylicon) 160 mg Q6H PRN PO DISTENSION/GAS/BLOATING Last administered on 08/01/18 09:07; Admin Dose 160 MG; Start 07/30/18 at 11:30 Tamsulosin HCl (Flomax) 0.4 mg BID PO Last administered on 08/02/18 08:11; Admin Dose 0.4 MG; Start 07/30/18 at 13:30 Assessment/Plan Additional Assessment/Plan Rehab- Debility secondary to large bowel obstruction status post resection and colostomy. Continue rehab activities GI-colostomy care training - Urinary retention, followed by urology acute pain syndrome- improving. Acute kidney injury-improved History of CVA. History of seizure disorder. Hyperlipidemia. SHEILA MARIE MD Aug 02, 2018 10:54
[2018-08-02 14:00] VITALS: BP 119/58; PULSE 68; RESP 18
--- NOTE | 2018-08-02 16:06 | PN ---
Date/Time of Note Date/Time of Note DATE: 08/02/18 TIME: 16:03 Assessment/Plan VTE Prophylaxis Risk score (from Nsg)>0 risk: 6 SCD applied (from Nsg): Yes Pharmacological prophylaxis: heparin Lines/Catheters IV Catheter Type (from Nrsg): PICC Line Central line still needed: No Urinary Cath still in place: Yes Reason Cath still needed: urinary retention Assessment/Plan Hospital Course 68 yo M with hx of colon ca in the past who presented with Diarrhea with nausea/vomiting and subsequently finding new mass and after ex lap, found to be recurrent adenocarcinoma of the rectum. Recurrent adenocarcinoma of the rectum - s/p LBO resection with ostomy, path showing cancer - f/u outpatient with oncology Acute urinary retention - smith removed, trial of void today - flomax - management per Dr Peck History of CVA -No significant residual deficits Hypertension -Controlled on losartan, hydralazine, and amlodipine Dyslipidemia -Continue home meds Subjective 24 Hr Interval Summary Free Text/Dictation Smith was removed, he has voided though says small amount Exam/Review of Systems Exam Vitals Vital Signs Date Temp Pulse Resp B/P (MAP) Pulse Ox O2 O2 Flow FiO2 Time Delivery Rate 08/02/18 98.1 77 18 138/65 96 Room Air 07:00 (89) Intake and Output 08/01/18 08/01/18 08/02/18 1515:00 23:00 07:00 IntakeIntake Total 100 ml 1200 ml 1740 ml OutputOutput Total 850 ml BalanceBalance 100 ml 350 ml 1740 ml Constitutional: alert, oriented, well developed Psych: no complaints, nl mood/affect Head: normocephalic, atraumatic Eyes: nl conjunctiva, EOMI, nl lids, nl sclera, PERRL ENMT: nl external ears & nose, nl lips & teeth, nl nasal mucosa & septum Neck: supple, non-tender Respiratory: clear to auscultation, normal air movement Cardiovascular: regular rate and rhythm, nl pulses Gastrointestinal: soft, nl liver, spleen, non-tender Musculoskeletal: nl extremities to inspection, nl gait and stance Extremities: normal pulses Neurological: SCOREKEEPER II-XII intact, nl mental status, nl speech, nl strength Skin: nl turgor; No rash or lesions Lymph: nl lymph nodes Medications Medication Current Medications Folic Acid (Folic Acid) 1 mg DAILY PO Last administered on 08/02/18 08:11; Admin Dose 1 MG; Start 07/24/18 at 21:01 Acetaminophen/ Hydrocodone Bitart ([place] (5/325)) 1 tab Q4H PRN PO MODERATE PA IN LEVEL 4-6 Last administered on 08/02/18 02:37; Admin Dose 1 TAB; Start 07/24/18 at 21:01 Aspirin (Aspirin) 81 mg DAILY PO Last administered on 08/02/18 08:11; Admin Dose 81 MG; Start 07/24/18 at 21:01 Docusate Sodium (Colace) 250 mg DAILY PO Last administered on 08/02/18 08:11; Admin Dose 250 MG; Start 07/24/18 at 21:01 Amlodipine Besylate (Norvasc) 5 mg BID PO Last administered on 08/02/18 08:14; Admin Dose 5 MG; Start 07/24/18 at 22:10 Atorvastatin Calcium (Lipitor) 20 mg QHS PO Last administered on 08/01/18 22:10; Admin Dose 20 MG; Start 07/24/18 at 22:10 Hydralazine HCl (Apresoline) 50 mg BID PO Last administered on 08/02/18 08:15; Admin Dose 50 MG; Start 07/24/18 at 22:11 Losartan Potassium (Cozaar) 50 mg BID PO Last administered on 08/02/18 08:15; Admin Dose 50 MG; Start 07/24/18 at 22:11 Magnesium Hydroxide (Milk Of Mag) 30 ml BID PRN PO CONSTIPATION; Start 07/25/18 at 05:00 Lactulose (Enulose) 20 gm DAILY PRN PO CONSTIPATION; Start 07/25/18 at 05:00 Bisacodyl (Dulcolax Supp) 10 mg DAILY PRN [place] CONSTIPATION; Start 07/25/18 at 05:00 Acetaminophen (Tylenol Tab) 650 mg Q6H PRN PO MILD PAIN(1-3)OR ELEVATED TEMP Last administered on 07/30/18 04:03; Admin Dose 650 MG; Start 07/25/18 at 13:00 Enoxaparin Sodium (Lovenox) 40 mg DAILY SC Last administered on 08/02/18 10:21; Admin Dose 40 MG; Start 07/26/18 at 09:00 Pantoprazole (Protonix Tab) 40 mg BID@0600,1800 PO Last administered on 08/02/18 06:23; Admin Dose 40 MG; Start 07/25/18 at 18:00 Zolpidem Tartrate (Ambien) 5 mg HS PRN PO INSOMNIA Last administered on 08/01/18 22:11; Admin Dose 5 MG; Start 07/28/18 at 17:30 Simethicone (Mylicon) 160 mg Q6H PRN PO DISTENSION/GAS/BLOATING Last administered on 08/01/18 09:07; Admin Dose 160 MG; Start 07/30/18 at 11:30 Tamsulosin HCl (Flomax) 0.4 mg BID PO Last administered on 08/02/18 08:11; Admin Dose 0.4 MG; Start 07/30/18 at 13:30 NITA SILVA MD Aug 02, 2018 16:06
--- NOTE | 2018-08-02 18:19 | NUR ---
PT/OT TODAY FOR STRENGTHENING BUE/BLE ABLE TO TOLERATE WELL DENIES ANY PAIN DISCOMFORT. ABLE TO CHANGED COLOSTOMY BAG D/T LEAKING KEPT SITE CLEAN DRY, NO SOB , NO ACUTE DISTRESS, ASSISTED ADLS D/T GENERALIZED BODY WEAKNESS. VS WITHIN RANGE AND ALL NEEDS MET
[2018-08-02 19:39] VITALS: BP 135/63; PULSE 68; RESP 18
[2018-08-02] MEDS: ATORVASTATIN 20 MG TAB PO SCH (20:22)
[2018-08-03] MEDS: ZOLPIDEM 5 MG TAB PO PRN ×2 (00:20→20:33)
[2018-08-03 02:00] VITALS: BP_SYST 127; BP_SYST 131; BP_DIAS 62; BP_DIAS 68; PULSE 67; PULSE 72; RESP 18
--- NOTE | 2018-08-03 06:03 | NUR ---
PATIENT IS AWAKE AND ALERT. MEDICATED WITH [place] I TAB PO FOR ABDOMINAL PAIN WITH RELIEF. CONTINUE CHECK PVR. AT BEDSIDE. COLOSTOMY CARE RENDERED. RECREATIONAL ACTIVITIES PROVIDED TO PATIENT;TV. CALL LIGHT WITHIN REACH. NO ACUTE DISTRESS NOTED.
[2018-08-03] MEDS: PANTOPRAZOLE (EC) 40 MG TAB PO SCH ×2 (06:37→17:32)
[2018-08-03] MEDS: HYDROCODONE/APAP (5/325) TAB PO PRN (06:38)
[2018-08-03 07:00] VITALS: BP 132/63; PULSE 64; RESP 18
[2018-08-03] MEDS: AMLODIPINE 5 MG TAB PO SCH ×2 (09:08→20:34)
[2018-08-03] MEDS: ASPIRIN 81 MG TAB PO SCH (09:08)
[2018-08-03] MEDS: DOCUSATE SODIUM 250 MG CAP PO SCH (09:08)
[2018-08-03] MEDS: LOSARTAN 50 MG TAB PO SCH ×2 (09:09→20:34)
[2018-08-03] MEDS: FOLIC ACID 1 MG TAB PO SCH (09:09)
[2018-08-03] MEDS: TAMSULOSIN (SR) 0.4 MG CAP PO SCH ×2 (09:09→20:33)
[2018-08-03] MEDS: ENOXAPARIN 40 MG/0.4 ML SYG SC SCH (09:14)
--- NOTE | 2018-08-03 10:00 | NUR ---
PT URINATED 350ML CLEAR YELLOW URINE. BVI DONE 100ML
--- NOTE | 2018-08-03 10:54 | PN ---
Date/Time of Note Date/Time of Note DATE: 08/03/18 TIME: 10:51 Subjective Comfortable Objective Vital Signs Date Temp Pulse Resp B/P (MAP) Pulse Ox O2 O2 Flow FiO2 Time Delivery Rate 08/03/18 98.2 64 18 132/63 97 Room Air 07:00 (86) Intake and Output 08/02/18 08/02/18 08/03/18 1515:00 23:00 07:00 IntakeIntake Total 1200 ml 1040 ml OutputOutput Total 280 ml 900 ml 450 ml BalanceBalance -280 ml 300 ml 590 ml Exam pulm-cta abd-soft min assist Results/Medications Medications Current Medications Folic Acid (Folic Acid) 1 mg DAILY PO Last administered on 08/03/18 09:09; Admin Dose 1 MG; Start 07/24/18 at 21:01 Acetaminophen/ Hydrocodone Bitart ([place] (5/325)) 1 tab Q4H PRN PO MODERATE PAIN LEVEL 4-6 Last administered on 08/03/18 06:38; Admin Dose 1 TAB; Start 07/24/18 at 21:01 Aspirin (Aspirin) 81 mg DAILY PO Last administered on 08/03/18 09:08; Admin Dose 81 MG; Start 07/24/18 at 21:01 Docusate Sodium (Colace) 250 mg DAILY PO Last administered on 08/03/18 09:08; Admin Dose 250 MG; Start 07/24/18 at 21:01 Amlodipine Besylate (Norvasc) 5 mg BID PO Last administered on 08/03/18 09:08; Admin Dose 5 MG; Start 07/24/18 at 22:10 Atorvastatin Calcium (Lipitor) 20 mg QHS PO Last administered on 08/02/18 20:22; Admin Dose 20 MG; Start 07/24/18 at 22:10 Hydralazine HCl (Apresoline) 50 mg BID PO Last administered on 08/03/18 09:10; Admin Dose 50 MG; Start 07/24/18 at 22:11 Losartan Potassium (Cozaar) 50 mg BID PO Last administered on 08/03/18 09:09; Admin Dose 50 MG; Start 07/24/18 at 22:11 Magnesium Hydroxide (Milk Of Mag) 30 ml BID PRN PO CONSTIPATION; Start 07/25/18 at 05:00 Lactulose (Enulose) 20 gm DAILY PRN PO CONSTIPATION; Start 07/25/18 at 05:00 Bisacodyl (Dulcolax Supp) 10 mg DAILY PRN [place] CONSTIPATION; Start 07/25/18 at 05:00 Acetaminophen (Tylenol Tab) 650 mg Q6H PRN PO MILD PAIN(1-3)OR ELEVATED TEMP Last administered on 07/30/18 04:03; Admin Dose 650 MG; Start 07/25/18 at 13:00 Enoxaparin Sodium (Lovenox) 40 mg DAILY SC Last administered on 08/03/18at 09:14; Admin Dose 40 MG; Start 07/26/18 at 09:00 Pantoprazole (Protonix Tab) 40 mg BID@0600,1800 PO Last administered on 08/03/18at 06:37; Admin Dose 40 MG; Start 07/25/18 at 18:00 Zolpidem Tartrate (Ambien) 5 mg HS PRN PO INSOMNIA Last administered on 08/03/18at 00:20; Admin Dose 5 MG; Start 07/28/18 at 17:30 Simethicone (Mylicon) 160 mg Q6H PRN PO DISTENSION/GAS/BLOATING Last administered on 08/01/18 09:07; Admin Dose 160 MG; Start 07/30/18 at 11:30 Tamsulosin HCl (Flomax) 0.4 mg BID PO Last administered on 08/03/18at 09:09; Admin Dose 0.4 MG; Start 07/30/18 at 13:30 Assessment/Plan Additional Assessment/Plan Rehab- Debility secondary to large bowel obstruction status post resection and colostomy. Continue rehab program GI-colostomy care training - Urinary retention, followed by urology acute pain syndrome- improving. Acute kidney injury-improved History of CVA. History of seizure disorder. Hyperlipidemia. SHEILA MARIE MD Aug 03, 2018 10:54
--- NOTE | 2018-08-03 12:38 | CONS ---
Consult Date/Type/Reason Admit Date/Time Jul 24, 2018 at 18:47 Initial Consult Date 07/30/18 Type of Consultation: Urology Reason for Consultation Hematuria and urinary retention Requesting Provider: FAHAD BARDALES MD, [facility] Date/Time of Note DATE: 08/03/18 TIME: 12:35 Subjective Patient appears to be comfortable and he is voiding. Objective Vitals Vital Signs Date Temp Pulse Resp B/P (MAP) Pulse Ox O2 O2 Flow FiO2 Time Delivery Rate 08/03/18 98.2 64 18 132/63 97 Room Air 07:00 (86) Intake and Output 08/02/18 08/02/18 08/03/18 1515:00 23:00 07:00 IntakeIntake Total 1200 ml 1040 ml OutputOutput Total 280 ml 900 ml 450 ml BalanceBalance -280 ml 300 ml 590 ml Exam Has a colostomy. And voiding clear urine Results/Medications Results 24 hrs PSA 3.0 Home Meds Active Scripts Loperamide Hcl* (Imodium*) 2 Mg Capsule, 2 MG PO .AFTER EA LOOSE BM PRN for DIARRHEA, #10 TAB Prov:JENNIFER MANRIQUE MD 07/13/18 Ondansetron (Ondansetron Odt) 4 Mg Tab.rapdis, 4 MG PO Q6H PRN for NAUSEA AND/OR VOMITING, #10 TAB Prov:JENNIFER MANRIQUE MD 07/13/18 Reported Medications Folic Acid* (Folic Acid*) 1 Mg Tablet, 1 MG PO DAILY, TAB 09/11/16 Atorvastatin Calcium* (Atorvastatin Calcium*) 20 Mg Tablet, 20 MG PO QHS, #30 TAB 09/11/16 Aspirin* (Aspirin* EC) 81 Mg Tablet.dr, 81 MG PO DAILY, TAB 09/11/16 Medications Current Medications Folic Acid (Folic Acid) 1 mg DAILY PO Last administered on 08/03/18at 09:09; Admin Dose 1 MG; Start 07/24/18 at 21:01 Acetaminophen/ Hydrocodone Bitart ([place] (5/325)) 1 tab Q4H PRN PO MODERATE PAIN LEVEL 4-6 Last administered on 08/03/18at 06:38; Admin Dose 1 TAB; Start 07/24/18 at 21:01 Aspirin (Aspirin) 81 mg DAILY PO Last administered on 08/03/18 09:08; Admin Dose 81 MG; Start 07/24/18 at 21:01 Docusate Sodium (Colace) 250 mg DAILY PO Last administered on 08/03/18 09:08; Admin Dose 250 MG; Start 07/24/18 at 21:01 Amlodipine Besylate (Norvasc) 5 mg BID PO Last administered on 08/03/18 09:08; Admin Dose 5 MG; Start 07/24/18 at 22:10 Atorvastatin Calcium (Lipitor) 20 mg QHS PO Last administered on 08/02/18 20:22; Admin Dose 20 MG; Start 07/24/18 at 22:10 Hydralazine HCl (Apresoline) 50 mg BID PO Last administered on 08/03/18 09:10; Admin Dose 50 MG; Start 07/24/18 at 22:11 Losartan Potassium (Cozaar) 50 mg BID PO Last administered on 08/03/18 09:09; Admin Dose 50 MG; Start 07/24/18 at 22:11 Magnesium Hydroxide (Milk Of Mag) 30 ml BID PRN PO CONSTIPATION; Start 07/25/18 at 05:00 Lactulose (Enulose) 20 gm DAILY PRN PO CONSTIPATION; Start 07/25/18 at 05:00 Bisacodyl (Dulcolax Supp) 10 mg DAILY PRN [place] CONSTIPATION; Start 07/25/18 at 05:00 Acetaminophen (Tylenol Tab) 650 mg Q6H PRN PO MILD PAIN(1-3)OR ELEVATED TEMP Last administered on 07/30/18 04:03; Admin Dose 650 MG; Start 07/25/18 at 13:00 Enoxaparin Sodium (Lovenox) 40 mg DAILY SC Last administered on 08/03/18 09:14; Admin Dose 40 MG; Start 07/26/18 at 09:00 Pantoprazole (Protonix Tab) 40 mg BID@0600,1800 PO Last administered on 08/03/18 06:37; Admin Dose 40 MG; Start 07/25/18 at 18:00 Zolpidem Tartrate (Ambien) 5 mg HS PRN PO INSOMNIA Last administered on 08/03/18 00:20; Admin Dose 5 MG; Start 07/28/18 at 17:30 Simethicone (Mylicon) 160 mg Q6H PRN PO DISTENSION/GAS/BLOATING Last administered on 08/01/18at 09:07; Admin Dose 160 MG; Start 07/30/18 at 11:30 Tamsulosin HCl (Flomax) 0.4 mg BID PO Last administered on 08/03/18at 09:09; Admin Dose 0.4 MG; Start 07/30/18 at 13:30 Assessment/Plan Hospital Course (Demo Recall) 68-year-old male with history of colon cancer in the past presented to the hospital with diarrhea, nausea and vomiting and was found to have recurrent colon cancer at the site of the prior anastomosis. He had : 1. Partial intestinal obstruction with diarrhea, nausea, vomiting and weight loss secondary to #2: Now resolved. 2. Sigmoid mass/recurrent colon cancer. - Colonoscopy on 07/16/2018 - Status post Babar procedure with colostomy and exploratory laparotomy 07/20/2018 3. History of colorectal carcinoma stage III-C, status post previous resection at the rectosigmoid junction in 2017. - The patient was recommended to get chemo at that time, but the patient and his son had refused at that time. 4. Acute kidney injury, resolved. 5. History of cerebrovascular accident. 6. Hypertension with fair control. 7. Dyslipidemia. 8. Remote seizure disorder, last seizure of 5 to 6 years ago. The patient was transferred to the rehab unit for further care. He was noted to have hematuria and that happened after a Duque catheter was inserted because he had urinary retention. Patient states that at home before his recent surgeries he was voiding about 4 times at night and every 3-4 hours during the day. His urinary stream was slow. He denies any history of hematuria. He was not taking any medications for his prostate. He is presently on tamsulosin 0.[address] scan that he had on admission shows that he has a large prostate that measured about 56 mm in transverse diameter and 44 mm in AP. The hematuria has cleared and the Duque catheter has been removed and he has voided last time about 2 hours earlier and his postvoid residual was about 100 mL. His PSA was 3.0. Plan: Continue tamsulosin and check his postvoid residual. SUSAN CAMPO MD Aug 03, 2018 12:38
--- NOTE | 2018-08-03 12:46 | NUR ---
PT VOIDED 350ML. BVI SCAN DONE ZERO OUTPUT
--- NOTE | 2018-08-03 13:10 | PN ---
Date/Time of Note Date/Time of Note DATE: 08/03/18 TIME: 13:03 Assessment/Plan VTE Prophylaxis Risk score (from Nsg)>0 risk: 8 SCD applied (from Nsg): Yes Pharmacological prophylaxis: LMWH Lines/Catheters IV Catheter Type (from Nrsg): PICC Line Central line still needed: Yes Urinary Cath still in place: No Assessment/Plan Hospital Course SUBJECTIVE: Lying in bed comfortably. No acute distress OBJECTIVE: Vital signs-see below PHYSICAL EXAM: Constitutional: Well-developed, adequately built, lying in bed comfortably. Psych: nl mood/affect, no complaints Head: atraumatic, normocephalic Eyes: nl conjunctiva, nl sclera ENMT: mucosa pink and moist, nl external ears & nose Neck: non-tender, supple Respiratory: clear to auscultation, normal air movement Cardiovascular: nl pulses, regular rate and rhythm Gastrointestinal: With colostomy, site CDI. Abdomen non-tender, soft, bowel sounds active in all 4 quadrants. Musculoskeletal/extremities: nl extremities to inspection, motor strength equal bilaterally, no focal deficit. Normal pulses,no cyanosis, no edema. Neurological: Alert oriented 3,nl speech, nl strength Skin: nl turgor ASSESSMENT/PLAN:68 yo M with hx of colon ca in the past who presented with Diarrhea with nausea/vomiting and subsequently finding new mass and after ex lap, found to be recurrent adenocarcinoma of the rectum. Recurrent adenocarcinoma of the rectum - s/p LBO resection with ostomy, path showing cancer - f/u outpatient with oncology BPH - flomax - management per Dr Peck - s/p smith dcd. Patient voiding appropriately. History of CVA -No significant residual deficits Hypertension -Controlled on losartan, hydralazine, and amlodipine Dyslipidemia -Continue home meds Patient was seen in collaboration with Exam/Review of Systems Exam Vitals Vital Signs Date Temp Pulse Resp B/P (MAP) Pulse Ox O2 O2 Flow FiO2 Time Delivery Rate 08/03/18 98.2 64 18 132/63 97 Room Air 07:00 (86) Intake and Output 08/02/18 08/02/18 08/03/18 1515:00 23:00 07:00 IntakeIntake Total 1200 ml 1040 ml OutputOutput Total 280 ml 900 ml 450 ml BalanceBalance -280 ml 300 ml 590 ml Medications Medication Current Medications Folic Acid (Folic Acid) 1 mg DAILY PO Last administered on 08/03/18 09:09; Admin Dose 1 MG; Start 07/24/18 at 21:01 Acetaminophen/ Hydrocodone Bitart ([place] (5/325)) 1 tab Q4H PRN PO MODERATE PAIN LEVEL 4-6 Last administered on 08/03/18 06:38; Admin Dose 1 TAB; Start 07/24/18 at 21:01 Aspirin (Aspirin) 81 mg DAILY PO Last administered on 08/03/18 09:08; Admin Dose 81 MG; Start 07/24/18 at 21:01 Docusate Sodium (Colace) 250 mg DAILY PO Last administered on 08/03/18 09:08; Admin Dose 250 MG; Start 07/24/18 at 21:01 Amlodipine Besylate (Norvasc) 5 mg BID PO Last administered on 08/03/18 09:08; Admin Dose 5 MG; Start 07/24/18 at 22:10 Atorvastatin Calcium (Lipitor) 20 mg QHS PO Last administered on 08/02/18 20:22; Admin Dose 20 MG; Start 07/24/18 at 22:10 Hydralazine HCl (Apresoline) 50 mg BID PO Last administered on 08/03/18 09:10; Admin Dose 50 MG; Start 07/24/18 at 22:11 Losartan Potassium (Cozaar) 50 mg BID PO Last administered on 08/03/18 09:09; Admin Dose 50 MG; Start 07/24/18 at 22:11 Magnesium Hydroxide (Milk Of Mag) 30 ml BID PRN PO CONSTIPATION; Start 07/25/18 at 05:00 Lactulose (Enulose) 20 gm DAILY PRN PO CONSTIPATION; Start 07/25/18 at 05:00 Bisacodyl (Dulcolax Supp) 10 mg DAILY PRN [place] CONSTIPATION; Start 07/25/18 at 05:00 Acetaminophen (Tylenol Tab) 650 mg Q6H PRN PO MILD PAIN(1-3)OR ELEVATED TEMP Last administered on 07/30/18 04:03; Admin Dose 650 MG; Start 07/25/18 at 13:00 Enoxaparin Sodium (Lovenox) 40 mg DAILY SC Last administered on 08/03/18 09:14; Admin Dose 40 MG; Start 07/26/18 at 09:00 Pantoprazole (Protonix Tab) 40 mg BID@0600,1800 PO Last administered on 08/03/18at 06:37; Admin Dose 40 MG; Start 07/25/18 at 18:00 Zolpidem Tartrate (Ambien) 5 mg HS PRN PO INSOMNIA Last administered on 08/03/18at 00:20; Admin Dose 5 MG; Start 07/28/18 at 17:30 Simethicone (Mylicon) 160 mg Q6H PRN PO DISTENSION/GAS/BLOATING Last administered on 08/01/18at 09:07; Admin Dose 160 MG; Start 07/30/18 at 11:30 Tamsulosin HCl (Flomax) 0.4 mg BID PO Last administered on 08/03/18at 09:09; Admin Dose 0.4 MG; Start 07/30/18 at 13:30 Ceftriaxone Sodium 50 ml @ 100 mls/hr Q24H IVPB ; Start 08/03/18 at 14:00 SHEILA LAYTON NP Aug 03, 2018 13:10
[2018-08-03 14:00] VITALS: BP 119/55; PULSE 68; RESP 16
[2018-08-03] MEDS: CEFTRIAXONE 1 GM/50 ML (PMX) 50 ML IVPB SCH (14:54)
--- NOTE | 2018-08-03 19:34 | NUR ---
END OF SHIFT SUMMARY: PT IS ALERT, AWAKE, BULGARIAN SPEAKING ONLY WITH DAUGHTER AND AT BEDSIDE. VITAL SIGNS STABLE. COLOSTOMY BAG AND DRESSING CHANGED. DRESSING DRY AND INTACT. NO COMPLAINS OF PAIN. PT VOIDED IN THE URINAL AND SOMETIMES BATHROOM. PVR DONE. MD AWARE. CALL LIGHT WAS WITHIN REACH. AND PT WAS ENCOURAGED TO CALL FOR ASST.
[2018-08-03 20:00] VITALS: BP 144/62; PULSE 63; RESP 18
[2018-08-03] MEDS: ATORVASTATIN 20 MG TAB PO SCH (20:33)
[2018-08-04 02:10] VITALS: BP 159/38; PULSE 68
--- NOTE | 2018-08-04 03:36 | NUR ---
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 Will be free from falls/injuries 2. Will have good pain control 3. Will not develop infection on surgical site Patient's progress: Fair Short-term goals not met and reason/barriers: ongoing Bladder - level of function and accidents: 1-5, no accidents Bowel - level of function and accidents: 1, 1 accident Skin: Non intact Status: Surgical site covered with dressing Treatment: Kept clean & dry Changes: Pain: No Level: 0 Location: Management: Changes: Functional levels: Self Care: 1 Transfers: 0-4 Locomotion: 1-4 Assistance requirements: Communication: 5 Social Cognition: 6 Safety awareness: Yes, bed alarm on, call light kept wihin reach, frequent checks for safety. Interdisciplinary interactions: MD, RN, PT, OT, SW Patient education: Yes, re: safety precautions Discharge needs: Plan to d/c on 08/06/18 Comorbid conditions: 1. Acute pain syndrome. 2. Acute kidney injury. 3. History of CVA. 4. History of seizure disorder. 5. Hyperlipidemia. 6. Impairments in self-care and mobility. Plan of Care continuation: Continue current POC
[2018-08-04] MEDS: PANTOPRAZOLE (EC) 40 MG TAB PO SCH ×2 (05:53→17:58)
[2018-08-04] MEDS: HYDROCODONE/APAP (5/325) TAB PO PRN ×3 (05:56→20:49)
--- NOTE | 2018-08-04 06:55 | NUR ---
Pt asleep at this time. Manifested relief of pain after interventions. at bedside. Needs attended to. Safety precautions in place. Kept clean, dry and comfortable. Colostomy bag emptied several times during shift. PVR checked and recorded. Reminded not to touch/scratch/pull colostomy bag. Encouraged to call for help whenever necessary. Will endorse accordingly.
[2018-08-04 07:00] VITALS: BP 139/65; PULSE 67; RESP 18
[2018-08-04] MEDS: ENOXAPARIN 40 MG/0.4 ML SYG SC SCH (09:00)
[2018-08-04] MEDS: ASPIRIN 81 MG TAB PO SCH (09:35)
[2018-08-04] MEDS: FOLIC ACID 1 MG TAB PO SCH (09:35)
[2018-08-04] MEDS: DOCUSATE SODIUM 250 MG CAP PO SCH (09:35)
[2018-08-04] MEDS: TAMSULOSIN (SR) 0.4 MG CAP PO SCH ×2 (09:35→20:48)
[2018-08-04] MEDS: AMLODIPINE 5 MG TAB PO SCH ×2 (09:36→20:49)
[2018-08-04] MEDS: LOSARTAN 50 MG TAB PO SCH ×2 (09:36→20:50)
--- NOTE | 2018-08-04 11:47 | PN ---
Date/Time of Note Date/Time of Note DATE: 08/04/18 TIME: 11:46 Assessment/Plan VTE Prophylaxis Risk score (from Nsg)>0 risk: 8 SCD applied (from Nsg): Yes Pharmacological prophylaxis: LMWH Lines/Catheters IV Catheter Type (from Nrsg): PICC Line Central line still needed: Yes Urinary Cath still in place: No Assessment/Plan Hospital Course SUBJECTIVE: No acute distress OBJECTIVE: Vital signs-see below PHYSICAL EXAM: Constitutional: Well-developed, adequately built, lying in bed comfortably. Psych: nl mood/affect, no complaints Head: atraumatic, normocephalic Eyes: nl conjunctiva, nl sclera ENMT: mucosa pink and moist, nl external ears & nose Neck: non-tender, supple Respiratory: clear to auscultation, normal air movement Cardiovascular: nl pulses, regular rate and rhythm Gastrointestinal: With colostomy, site CDI. Abdomen non-tender, soft, bowel sounds active in all 4 quadrants. Musculoskeletal/extremities: nl extremities to inspection, motor strength equal bilaterally, no focal deficit. Normal pulses,no cyanosis, no edema. Neurological: Alert oriented 3,nl speech, nl strength Skin: nl turgor ASSESSMENT/PLAN:68 yo M with hx of colon ca in the past who presented with Diarrhea with nausea/vomiting and subsequently finding new mass and after ex lap, found to be recurrent adenocarcinoma of the rectum. Recurrent adenocarcinoma of the rectum - s/p LBO resection with ostomy, path showing cancer - f/u outpatient with oncology BPH - flomax - management per Dr Peck - s/p smith dcd. Patient voiding appropriately. History of CVA -No significant residual deficits Hypertension -Controlled on losartan, hydralazine, and amlodipine Dyslipidemia -Continue home meds DVT prophylaxis: Lovenox Patient was seen in collaboration with Exam/Review of Systems Exam Vitals Vital Signs Date Temp Pulse Resp B/P (MAP) Pulse Ox O2 O2 Flow FiO2 Time Delivery Rate 08/04/18 98.4 67 18 139/65 96 Room Air 07:00 (89) Intake and Output 08/03/18 08/03/18 08/04/18 1414:59 22:59 06:59 IntakeIntake Total 100 ml 1150 ml OutputOutput Total 1000 ml 751 ml 500 ml BalanceBalance -900 ml 399 ml -500 ml Medications Medication Current Medications Folic Acid (Folic Acid) 1 mg DAILY PO Last administered on 08/04/18 09:35; Admin Dose 1 MG; Start 07/24/18 at 21:01 Acetaminophen/ Hydrocodone Bitart ([place] (5/325)) 1 tab Q4H PRN PO MODERATE PAIN LEVEL 4-6 Last administered on 08/04/18 05:56; Admin Dose 1 TAB; Start 07/24/18 at 21:01 Aspirin (Aspirin) 81 mg DAILY PO Last administered on 08/04/18 09:35; Admin Dose 81 MG; Start 07/24/18 at 21:01 Docusate Sodium (Colace) 250 mg DAILY PO Last administered on 08/04/18 09:35; Admin Dose 250 MG; Start 07/24/18 at 21:01 Amlodipine Besylate (Norvasc) 5 mg BID PO Last administered on 08/04/18 09:36; Admin Dose 5 MG; Start 07/24/18 at 22:10 Atorvastatin Calcium (Lipitor) 20 mg QHS PO Last administered on 08/03/18 20:33; Admin Dose 20 MG; Start 07/24/18 at 22:10 Hydralazine HCl (Apresoline) 50 mg BID PO Last administered on 08/04/18 09:37; Admin Dose 50 MG; Start 07/24/18 at 22:11 Losartan Potassium (Cozaar) 50 mg BID PO Last administered on 08/04/18 09:36; Admin Dose 50 MG; Start 07/24/18 at 22:11 Magnesium Hydroxide (Milk Of Mag) 30 ml BID PRN PO CONSTIPATION; Start 07/25/18 at 05:00 Lactulose (Enulose) 20 gm DAILY PRN PO CONSTIPATION; Start 07/25/18 at 05:00 Bisacodyl (Dulcolax Supp) 10 mg DAILY PRN [place] CONSTIPATION; Start 07/25/18 at 05:00 Acetaminophen (Tylenol Tab) 650 mg Q6H PRN PO MILD PAIN(1-3)OR ELEVATED TEMP Last administered on 07/30/18 04:03; Admin Dose 650 MG; Start 07/25/18 at 13:00 Enoxaparin Sodium (Lovenox) 40 mg DAILY SC Last administered on 08/03/18 09:14; Admin Dose 40 MG; Start 07/26/18 at 09:00 Pantoprazole (Protonix Tab) 40 mg BID@0600,1800 PO Last administered on 08/04/18at 05:53; Admin Dose 40 MG; Start 07/25/18 at 18:00 Zolpidem Tartrate (Ambien) 5 mg HS PRN PO INSOMNIA Last administered on 08/03/18at 20:33; Admin Dose 5 MG; Start 07/28/18 at 17:30 Simethicone (Mylicon) 160 mg Q6H PRN PO DISTENSION/GAS/BLOATING Last administered on 08/01/18at 09:07; Admin Dose 160 MG; Start 07/30/18 at 11:30 Tamsulosin HCl (Flomax) 0.4 mg BID PO Last administered on 08/04/18at 09:35; Admin Dose 0.4 MG; Start 07/30/18 at 13:30 Ceftriaxone Sodium 50 ml @ 100 mls/hr Q24H IVPB Last administered on 08/03/18at 14:54; Admin Dose 100 MLS/HR; Start 08/03/18 at 14:00 SHEILA LAYTON NP Aug 04, 2018 11:47
[2018-08-04 14:16] VITALS: BP 116/58; PULSE 71; RESP 16
[2018-08-04] MEDS: CEFTRIAXONE 1 GM/50 ML (PMX) 50 ML IVPB SCH (14:20)
--- NOTE | 2018-08-04 19:33 | NUR ---
End of shift- Medicated x1 this shift for pain. Walked x2 with son. Up in chair most of shift. Colostomy bag changed this afternoon. at bedside- walked her through the steps of applying a new bag. PVR done x3 shift with minimal residual (below 100 cc each time).
[2018-08-04 20:00] VITALS: BP 131/63; PULSE 65; RESP 18
[2018-08-04] MEDS: ATORVASTATIN 20 MG TAB PO SCH (20:50)
[2018-08-04] MEDS: ZOLPIDEM 5 MG TAB PO PRN (22:05)
[2018-08-05 02:00] VITALS: BP 135/65; PULSE 62; RESP 18
--- NOTE | 2018-08-05 05:45 | NUR ---
End of Shift Note During the shift, colostomy bag and abdominal dressing changed. Pt goes to the toilet when voiding. PVR= 159 ml and 59 ml. Ambien 5 mg PO given for insomnia. Pt slept well. PRN [place] 5/325 1 tab PO given as PRN for pain was effective. Bed on lowest position, side rails up 2x, bed alarm on and call light within reach. will continue to monitor
[2018-08-05] MEDS: PANTOPRAZOLE (EC) 40 MG TAB PO SCH ×2 (06:15→17:51)
[2018-08-05 08:00] VITALS: BP 146/66; PULSE 65; RESP 18
[2018-08-05] MEDS: ENOXAPARIN 40 MG/0.4 ML SYG SC SCH (09:17)
[2018-08-05] MEDS: AMLODIPINE 5 MG TAB PO SCH ×2 (09:18→20:59)
[2018-08-05] MEDS: DOCUSATE SODIUM 250 MG CAP PO SCH (09:18)
[2018-08-05] MEDS: ASPIRIN 81 MG TAB PO SCH (09:18)
[2018-08-05] MEDS: TAMSULOSIN (SR) 0.4 MG CAP PO SCH ×2 (09:18→20:58)
[2018-08-05] MEDS: FOLIC ACID 1 MG TAB PO SCH (09:18)
[2018-08-05] MEDS: LOSARTAN 50 MG TAB PO SCH ×2 (09:19→20:59)
--- NOTE | 2018-08-05 11:34 | PN ---
Date/Time of Note Date/Time of Note DATE: 08/05/18 TIME: 11:33 Assessment/Plan VTE Prophylaxis Risk score (from Nsg)>0 risk: 8 SCD applied (from Nsg): Yes Pharmacological prophylaxis: LMWH Lines/Catheters IV Catheter Type (from Nrsg): PICC Line Central line still needed: Yes Urinary Cath still in place: No Assessment/Plan Hospital Course SUBJECTIVE: No acute distress OBJECTIVE: Vital signs-see below PHYSICAL EXAM: Constitutional: Well-developed, adequately built, lying in bed comfortably. Psych: nl mood/affect, no complaints Head: atraumatic, normocephalic Eyes: nl conjunctiva, nl sclera ENMT: mucosa pink and moist, nl external ears & nose Neck: non-tender, supple Respiratory: clear to auscultation, normal air movement Cardiovascular: nl pulses, regular rate and rhythm Gastrointestinal: With colostomy, site CDI. Abdomen non-tender, soft, bowel sounds active in all 4 quadrants. Musculoskeletal/extremities: nl extremities to inspection, motor strength equal bilaterally, no focal deficit. Normal pulses,no cyanosis, no edema. Neurological: Alert oriented 3,nl speech, nl strength Skin: nl turgor ASSESSMENT/PLAN:68 yo M with hx of colon ca in the past who presented with Diarrhea with nausea/vomiting and subsequently finding new mass and after ex lap, found to be recurrent adenocarcinoma of the rectum. Recurrent adenocarcinoma of the rectum - s/p LBO resection with ostomy, path showing cancer - f/u outpatient with oncology BPH - flomax - management per Dr Peck - s/p smith dcd. Patient voiding appropriately. History of CVA -No significant residual deficits Hypertension -Controlled on losartan, hydralazine, and amlodipine Dyslipidemia -Continue home meds Proteus mirabilis UTI. -on ceftriaxone IV DVT prophylaxis: Lovenox Patient was seen in collaboration with Exam/Review of Systems Exam Vitals Vital Signs Date Temp Pulse Resp B/P (MAP) Pulse Ox O2 O2 Flow FiO2 Time Delivery Rate 08/05/18 97.9 65 18 146/66 96 Room Air 08:00 (92) Intake and Output 08/04/18 08/04/18 08/05/18 1515:00 23:00 07:00 IntakeIntake Total 1250 ml 100 ml 50 ml OutputOutput Total 570 ml 334 ml 939 ml BalanceBalance 680 ml -234 ml -889 ml Medications Medication Current Medications Folic Acid (Folic Acid) 1 mg DAILY PO Last administered on 08/05/18 09:18; Admin Dose 1 MG; Start 07/24/18 at 21:01 Acetaminophen/ Hydrocodone Bitart ([place] (5/325)) 1 tab Q4H PRN PO MODERATE PAIN LEVEL 4-6 Last administered on 08/04/18 20:49; Admin Dose 1 TAB; Start 07/24/18 at 21:01 Aspirin (Aspirin) 81 mg DAILY PO Last administered on 08/05/18 09:18; Admin Dose 81 MG; Start 07/24/18 at 21:01 Docusate Sodium (Colace) 250 mg DAILY PO Last administered on 08/05/18 09:18; Admin Dose 250 MG; Start 07/24/18 at 21:01 Amlodipine Besylate (Norvasc) 5 mg BID PO Last administered on 08/05/18 09:18; Admin Dose 5 MG; Start 07/24/18 at 22:10 Atorvastatin Calcium (Lipitor) 20 mg QHS PO Last administered on 08/04/18 20:50; Admin Dose 20 MG; Start 07/24/18 at 22:10 Hydralazine HCl (Apresoline) 50 mg BID PO Last administered on 08/05/18 09:18; Admin Dose 50 MG; Start 07/24/18 at 22:11 Losartan Potassium (Cozaar) 50 mg BID PO Last administered on 08/05/18 09:19; Admin Dose 50 MG; Start 07/24/18 at 22:11 Magnesium Hydroxide (Milk Of Mag) 30 ml BID PRN PO CONSTIPATION; Start 07/25/18 at 05:00 Lactulose (Enulose) 20 gm DAILY PRN PO CONSTIPATION; Start 07/25/18 at 05:00 Bisacodyl (Dulcolax Supp) 10 mg DAILY PRN [place] CONSTIPATION; Start 07/25/18 at 05:00 Acetaminophen (Tylenol Tab) 650 mg Q6H PRN PO MILD PAIN(1-3)OR ELEVATED TEMP Last administered on 07/30/18 04:03; Admin Dose 650 MG; Start 07/25/18 at 13:00 Enoxaparin Sodium (Lovenox) 40 mg DAILY SC Last administered on 08/05/18 09:17; Admin Dose 40 MG; Start 07/26/18 at 09:00 Pantoprazole (Protonix Tab) 40 mg BID@0600,1800 PO Last administered on 08/05/18 06:15; Admin Dose 40 MG; Start 07/25/18 at 18:00 Zolpidem Tartrate (Ambien) 5 mg HS PRN PO INSOMNIA Last administered on 08/04/18 22:05; Admin Dose 5 MG; Start 07/28/18 at 17:30 Simethicone (Mylicon) 160 mg Q6H PRN PO DISTENSION/GAS/BLOATING Last administered on 08/01/18 09:07; Admin Dose 160 MG; Start 07/30/18 at 11:30 Tamsulosin HCl (Flomax) 0.4 mg BID PO Last administered on 08/05/18 09:18; Admin Dose 0.4 MG; Start 07/30/18 at 13:30 Ceftriaxone Sodium 50 ml @ 100 mls/hr Q24H IVPB Last administered on 08/04/18 14:20; Admin Dose 100 MLS/HR; Start 08/03/18 at 14:00 SHEILA LAYTON NP Aug 05, 2018 11:34
--- NOTE | 2018-08-05 12:23 | PN ---
Date/Time of Note Date/Time of Note DATE: 08/05/18 TIME: 12:23 Objective Vital Signs Date Temp Pulse Resp B/P (MAP) Pulse Ox O2 O2 Flow FiO2 Time Delivery Rate 08/05/18 97.9 65 18 146/66 96 Room Air 08:00 (92) Intake and Output 08/04/18 08/04/18 08/05/18 1515:00 23:00 07:00 IntakeIntake Total 1250 ml 100 ml 50 ml OutputOutput Total 570 ml 334 ml 939 ml BalanceBalance 680 ml -234 ml -889 ml Exam INTERDISCIPLINARY TEAM CONFERENCE Physical Exam: Pulm- Abd- BOWEL- Cont BLADDER-Cont - improved PVRs SKIN- colostomy site clean OT- DRESSING- min/mod BATHING-min/mod TOILETING-min/mod PT- BED MOBILITY-cga TRANSFERS-cga AMBULATION-cga 100 feet SPEECH- COGNITION- improved to baseline A/P- Interdisciplinary team conference held today. Please see interdisciplinary sheet. Working toward d.c. on 08/06 with post discharge follow up of physical therapy, occupational therapy. Results/Medications Medications Current Medications Folic Acid (Folic Acid) 1 mg DAILY PO Last administered on 08/05/18 09:18; Admin Dose 1 MG; Start 07/24/18 at 21:01 Acetaminophen/ Hydrocodone Bitart ([place] (5/325)) 1 tab Q4H PRN PO MODERATE PAIN LEVEL 4-6 Last administered on 08/04/18 20:49; Admin Dose 1 TAB; Start at 21:01 Aspirin (Aspirin) 81 mg DAILY PO Last administered on 08/05/18 09:18; Admin Dose 81 MG; Start 07/24/18 at 21:01 Docusate Sodium (Colace) 250 mg DAILY PO Last administered on 08/05/18 09:18; Admin Dose 250 MG; Start 07/24/18 at 21:01 Amlodipine Besylate (Norvasc) 5 mg BID PO Last administered on 08/05/18 09:18; Admin Dose 5 MG; Start 07/24/18 at 22:10 Atorvastatin Calcium (Lipitor) 20 mg QHS PO Last administered on 08/04/18 20:50; Admin Dose 20 MG; Start 07/24/18 at 22:10 Hydralazine HCl (Apresoline) 50 mg BID PO Last administered on 08/05/18 09:18; Admin Dose 50 MG; Start 07/24/18 at 22:11 Losartan Potassium (Cozaar) 50 mg BID PO Last administered on 08/05/18 09:19; Admin Dose 50 MG; Start 07/24/18 at 22:11 Magnesium Hydroxide (Milk Of Mag) 30 ml BID PRN PO CONSTIPATION; Start 07/25/18 at 05:00 Lactulose (Enulose) 20 gm DAILY PRN PO CONSTIPATION; Start 07/25/18 at 05:00 Bisacodyl (Dulcolax Supp) 10 mg DAILY PRN [place] CONSTIPATION; Start 07/25/18 at 05:00 Acetaminophen (Tylenol Tab) 650 mg Q6H PRN PO MILD PAIN(1-3)OR ELEVATED TEMP Last administered on 07/30/18 04:03; Admin Dose 650 MG; Start 07/25/18 at 13:00 Enoxaparin Sodium (Lovenox) 40 mg DAILY SC Last administered on 08/05/18 09:17; Admin Dose 40 MG; Start 07/26/18 at 09:00 Pantoprazole (Protonix Tab) 40 mg BID@0600,1800 PO Last administered on 08/05/18 06:15; Admin Dose 40 MG; Start 07/25/18 at 18:00 Zolpidem Tartrate (Ambien) 5 mg HS PRN PO INSOMNIA Last administered on 08/04/18 22:05; Admin Dose 5 MG; Start 07/28/18 at 17:30 Simethicone (Mylicon) 160 mg Q6H PRN PO DISTENSION/GAS/BLOATING Last administered on 08/01/18 09:07; Admin Dose 160 MG; Start 07/30/18 at 11:30 Tamsulosin HCl (Flomax) 0.4 mg BID PO Last administered on 08/05/18 09:18; Admin Dose 0.4 MG; Start 07/30/18 at 13:30 Ceftriaxone Sodium 50 ml @ 100 mls/hr Q24H IVPB Last administered on 08/04/18 14:20; Admin Dose 100 MLS/HR; Start 08/03/18 at 14:00 SHEILA MARIE MD Aug 05, 2018 12:23
[2018-08-05] MEDS: CEFTRIAXONE 1 GM/50 ML (PMX) 50 ML IVPB SCH (12:51)
[2018-08-05 14:00] VITALS: BP 111/55; PULSE 63; RESP 18
[2018-08-05] MEDS: HYDROCODONE/APAP (5/325) TAB PO PRN ×2 (16:54→23:28)
--- NOTE | 2018-08-05 18:32 | NUR ---
Plan is for DC tomorrow. Ostomy supplies recommended by validation architect are at bedside for change before DC. IV antibiotic continues for UTI- discussed with supercharger repair supervisor. No significant PVRs noted. Pain well controlled with [place] 1 tab x1.
[2018-08-05 20:00] VITALS: BP 121/57; PULSE 62; RESP 18
[2018-08-05] MEDS: ATORVASTATIN 20 MG TAB PO SCH (20:59)
[2018-08-05] MEDS: ZOLPIDEM 5 MG TAB PO PRN (23:28)
[2018-08-06 02:00] VITALS: BP 136/63; PULSE 67; RESP 18
--- NOTE | 2018-08-06 06:00 | NUR ---
End of Shift Note Pt is to D/C today. During the shift, colostomy bag and abdominal dressing changed. Pt goes to the toilet when voiding. PVR= 200 ml. Ambien 5 mg PO given for insomnia. Pt slept well. At 2328, PRN [place] 5/325 1 tab given PO for pain and it was effective. Bed on lowest position, side rails up 2x, bed alarm on and call light within reach. will continue to monitor
[2018-08-06] MEDS: PANTOPRAZOLE (EC) 40 MG TAB PO SCH (06:37)
[2018-08-06 07:30] VITALS: BP 146/68; PULSE 60; RESP 18
[2018-08-06] MEDS: AMLODIPINE 5 MG TAB PO SCH (08:11)
[2018-08-06] MEDS: TAMSULOSIN (SR) 0.4 MG CAP PO SCH (08:12)
[2018-08-06] MEDS: HYDROCODONE/APAP (5/325) TAB PO PRN (08:12)
[2018-08-06] MEDS: DOCUSATE SODIUM 250 MG CAP PO SCH (08:12)
[2018-08-06] MEDS: LOSARTAN 50 MG TAB PO SCH (08:12)
[2018-08-06] MEDS: ASPIRIN 81 MG TAB PO SCH (08:12)
[2018-08-06] MEDS: FOLIC ACID 1 MG TAB PO SCH (08:12)
[2018-08-06] MEDS: ENOXAPARIN 40 MG/0.4 ML SYG SC SCH (08:19)
[2018-08-06] MEDS ORDERED: AMPI500C9 PO (09:55)
--- NOTE | 2018-08-06 10:51 | PN ---
Date/Time of Note Date/Time of Note DATE: 08/06/18 TIME: 10:50 Assessment/Plan VTE Prophylaxis Risk score (from Nsg)>0 risk: 6 SCD applied (from Nsg): Yes Pharmacological prophylaxis: LMWH Lines/Catheters IV Catheter Type (from Nrsg): PICC Line Central line still needed: Yes Urinary Cath still in place: No Assessment/Plan Hospital Course SUBJECTIVE: No acute distress. For discharge today OBJECTIVE: Vital signs-see below PHYSICAL EXAM: Constitutional: Well-developed, adequately built, lying in bed comfortably. Psych: nl mood/affect, no complaints Head: atraumatic, normocephalic Eyes: nl conjunctiva, nl sclera ENMT: mucosa pink and moist, nl external ears & nose Neck: non-tender, supple Respiratory: clear to auscultation, normal air movement Cardiovascular: nl pulses, regular rate and rhythm Gastrointestinal: With colostomy, site CDI. Abdomen non-tender, soft, bowel sounds active in all 4 quadrants. Musculoskeletal/extremities: nl extremities to inspection, motor strength equal bilaterally, no focal deficit. Normal pulses,no cyanosis, no edema. Neurological: Alert oriented 3,nl speech, nl strength Skin: nl turgor ASSESSMENT/PLAN:68 yo M with hx of colon ca in the past who presented with Diarrhea with nausea/vomiting and subsequently finding new mass and after ex l ap, found to be recurrent adenocarcinoma of the rectum. Recurrent adenocarcinoma of the rectum - s/p LBO resection with ostomy, path showing cancer - f/u outpatient with oncology BPH - flomax - management per Dr Peck - s/p smith dcd. Patient voiding appropriately. History of CVA -No significant residual deficits Hypertension -Controlled on losartan, hydralazine, and amlodipine Dyslipidemia -Continue home meds Proteus mirabilis UTI. -Stable for p.o. ampicillin times 5 days. DVT prophylaxis: Lovenox Agree with discharge plan. Patient was seen in collaboration with Exam/Review of Systems Exam Vitals Vital Signs Date Temp Pulse Resp B/P (MAP) Pulse Ox O2 O2 Flow FiO2 Time Delivery Rate 08/06/18 97.7 60 18 146/68 96 Room Air 07:30 (94) Intake and Output 08/05/18 08/05/18 08/06/18 1515:00 23:00 07:00 IntakeIntake Total 50 ml 1900 ml OutputOutput Total 250 ml 800 ml 1200 ml BalanceBalance -200 ml 1100 ml -1200 ml Medications Medication Current Medications Folic Acid (Folic Acid) 1 mg DAILY PO Last administered on 08/06/18 08:12; Admin Dose 1 MG; Start 07/24/18 at 21:01 Acetaminophen/ Hydrocodone Bitart ([place] (5/325)) 1 tab Q4H PRN PO MODERATE PAIN LEVEL 4-6 Last administered on 08/06/18 08:12; Admin Dose 1 TAB; Start 07/24/18 at 21:01 Aspirin (Aspirin) 81 mg DAILY PO Last administered on 08/06/18 08:12; Admin Dose 81 MG; Start 07/24/18 at 21:01 Docusate Sodium (Colace) 250 mg DAILY PO Last administered on 08/06/18 08:12; Admin Dose 250 MG; Start 07/24/18 at 21:01 Amlodipine Besylate (Norvasc) 5 mg BID PO Last administered on 08/06/18 08:11; Admin Dose 5 MG; Start 07/24/18 at 22:10 Atorvastatin Calcium (Lipitor) 20 mg QHS PO Last administered on 08/05/18 20:59; Admin Dose 20 MG; Start 07/24/18 at 22:10 Hydralazine HCl (Apresoline) 50 mg BID PO Last administered on 08/06/18 08:12; Admin Dose 50 MG; Start 07/24/18 at 22:11 Losartan Potassium (Cozaar) 50 mg BID PO Last administered on 08/06/18 08:12; Admin Dose 50 MG; Start 07/24/18 at 22:11 Magnesium Hydroxide (Milk Of Mag) 30 ml BID PRN PO CONSTIPATION; Start 07/25/18 at 05:00 Lactulose (Enulose) 20 gm DAILY PRN PO CONSTIPATION; Start 07/25/18 at 05:00 Bisacodyl (Dulcolax Supp) 10 mg DAILY PRN [place] CONSTIPATION; Start 07/25/18 at 05:00 Acetaminophen (Tylenol Tab) 650 mg Q6H PRN PO MILD PAIN(1-3)OR ELEVATED TEMP Last administered on 07/30/18 04:03; Admin Dose 650 MG; Start 07/25/18 at 13:00 Enoxaparin Sodium (Lovenox) 40 mg DAILY SC Last administered on 08/06/18 08:19; Admin Dose 40 MG; Start 07/26/18 at 09:00 Pantoprazole (Protonix Tab) 40 mg BID@0600,1800 PO Last administered on 08/06/18 06:37; Admin Dose 40 MG; Start 07/25/18 at 18:00 Zolpidem Tartrate (Ambien) 5 mg HS PRN PO INSOMNIA Last administered on 08/05/18 23:28; Admin Dose 5 MG; Start 07/28/18 at 17:30 Simethicone (Mylicon) 160 mg Q6H PRN PO DISTENSION/GAS/BLOATING Last administered on 08/01/18 09:07; Admin Dose 160 MG; Start 07/30/18 at 11:30 Tamsulosin HCl (Flomax) 0.4 mg BID PO Last administered on 08/06/18 08:12; Admin Dose 0.4 MG; Start 07/30/18 at 13:30 Ceftriaxone Sodium 50 ml @ 100 mls/hr Q24H IVPB Last administered on 08/05/18 12:51; Admin Dose 100 MLS/HR; Start 08/03/18 at 14:00 SHEILA LAYTON NP Aug 06, 2018 10:51
--- NOTE | 2018-08-06 11:23 | NUR ---
[facility] courtesy van driver Summary Date of Discharge: 08/06/18 Patient Name: EPI MANUEL MR#: [id number] Height: 5 ft 6 in Weight: 166 lbs 7.184 oz 75.500 kg Reason for Visit: DEBILITY Precautions: Date: 08/06/18 Time: 1124 User: JONES CONTEH Patient's progress, Adm-->DC: good Short-term Goals:met 1.ambulate with fww 2.colostomy care 3.pain control 4. 5. Short-term goals not met and reason/barriers: Achievement of Long-term Goals: met Long-term Goals not met and reason/barriers:met Bladder - level of function and accidents:7/0 Bowel - level of function and accidents: 2/0 Skin:abd incision Status:well approximated, healing well Treatment:4x4, tegaderm Changes: improved Pain:occasional Level:4 Location:abdomen Management: [place] po Changes:improved Functional levels: Self Care:5 Transfers: 5 Locomotion: 5 Assistance requirements:fww Communication: 7 Social Cognition: 7 Safety awareness:good Interdisciplinary interactions: nursing, PT, OT Patient education: ostomy teaching with family Discharge needs: [facility]- nursing, pt, ot Comorbid conditions: colon CA
--- NOTE | 2018-08-06 11:34 | NUR ---
Patient discharged home in stable condition with all belongings. Medications reviewed with family and prescriptions given. Discharged via wheelchair with family.
--- NOTE | 2018-08-06 12:58 | DS ---
Date/Time of Note Date/Time of Note DATE: 08/06/18 TIME: 12:55 Discharge Summary Admission/Discharge Info Admit Date/Time Jul 24, 2018 at 18:47 Discharge Date/Time Aug 06, 2018 at 11:30 Discharge Diagnosis 1. Debility secondary to large bowel obstruction status post resection and colostomy. 2. Urinary retention, improved 3. History of CVA with mild encephalopathy on admission, which improved by discharge 4. History of seizure disorder. 5. Hyperlipidemia. 6. Impairments in self-care and mobility. Patient Condition: Good Hospital Course The patient was admitted for comprehensive interdisciplinary rehabilitation and made steady functional gains from a Mod level to a Min/CGA level for self care tasks and mobility including ambulating over 100 feet with the use of a FWW. Patient is being discharged home with the recommendation of home health PT, OT and RN follow up. The DC meds are per the medication reconciliation sheet. The discharge equipment recommendations include: FWW, BSC, shower chair. The patient will follow up with PMD upon DC. Family was safely trained in assistance, including colostomy care. Home Meds Active Scripts Ampicillin* (Ampicillin*) 500 Mg Cap, 500 MG PO Q8 for 5 Days, #15 CAP Prov:SHEILA LAYTON NP 08/06/18 Loperamide Hcl* (Imodium*) 2 Mg Capsule, 2 MG PO .AFTER EA LOOSE BM PRN for DIARRHEA, #10 TAB Prov:JENNIFER MANRIQUE MD 07/13/18 Ondansetron (Ondansetron Odt) 4 Mg Tab.rapdis, 4 MG PO Q6H PRN for NAUSEA AND/OR VOMITING, #10 TAB Prov:JENNIFER MANRIQUE MD 07/13/18 Reported Medications Folic Acid* (Folic Acid*) 1 Mg Tablet, 1 MG PO DAILY, TAB 09/11/16 Atorvastatin Calcium* (Atorvastatin Calcium*) 20 Mg Tablet, 20 MG PO QHS, #30 TAB 09/11/16 Aspirin* (Aspirin* EC) 81 Mg Tablet., 81 MG PO DAILY, TAB 09/11/16 Primary Care Provider Not On Staff Doctor SHEILA MARIE MD Aug 06, 2018 12:58
--- NOTE | 2018-08-08 11:33 | NUR ---
[facility] PT Discharge Summary Date of Discharge: 08/06/18 Patient Name: EPI MANUEL MR#: [id number] Height: 5 ft 6 in Weight: 166 lbs 7.184 oz 75.500 kg Reason for Visit: DEBILITY Precautions: Fall risk, abd. precautions, colostomy bag, Upper Sorbian-speaking, RLE weakness with R foot drag, h/o CVA, use R toe-off AFO for gait Date: 08/06/18 Time: 1133 User: GERDA CORTEZ Patient's progress, Adm-->DC: Short-term Goals: SBA bed mobility CGA transfers with FWW or 4WW CGA gait with FWW or 4WW x 50 ft SBA w/c mobility x 50 ft Pt is showed fair gains while here in [facility]. At the time of eval, pt was min assist for rolling, max assist for bed mobility, max assist for transfers, max assist for gait using fWW 2ft. Pt needed 2PA for safety/steadying. At the time of dc, pt was independent for rolling, supervised for bed mobility, SBA for transfers, mod ind for WC mobility [id number], CGA for gait FWW [id number], CGA for 1 step using FWW. Caregiver training completed with pt's spouse. Pt met STG's for bed mobility, transfers, gait and WC mobility. Barriers include pain and dec motivation and participation at times. Recommendations: manual w/c, commode, tub bench, HHPT and 24-hr assistance. Pt dc'd home.
--- NOTE | 2018-08-23 15:03 | NUR ---
[facility] OT Discharge Summary Date of Discharge: 08/23/18 Patient Name: EPI MANUEL MR#: [id number] Height:5 ft 6 in Weight:166 lbs 7.184 oz 75.500 kg Reason for Visit: DEBILITY Precautions: fall risk Date: 08/23/18 Time: 1503 User: MANDO ROTHMAN Short-term Goals: 1. Mod I w/ Grooming 2. Mod A w/ Bathing 3. Sup/ Min A w/ UB/LB dress 4. Mod A w/ Toileting 5. Sup w/ Functional transfers Upon admission pt's functional levels were: Grooming: Min A, Bathing: TD, UB/LB dress: Mod/ Max, Toileting: TD, Functional transfers: TD. Pt making progress towards goals through ADL retraining, NMRE, thera ex and actv, pt and cg education. Barriers to d/c were poor carryover and sequencing Pt functional levels upon d/c are: Grooming: Sup, Bathing: Mod A, UB/LB dress: SBA/Mod, Toileting: Max A, Functional transfers: CGA. Pt d/chris Home w/ HH.
== END 2018-08-06 11:30 | disposition home health service (06) | DRG 945 ==
LOC: VRC 18:47
PROVIDERS: ADMIT Physical Medicine & Rehabilitation; ATTEND Internal Medicine Pulmonary Disease
PROC: F07Z5ZZ Bed Mobility Treatment (ICD-10-PCS; principal; 2018-07-24)
PROC: F08Z2ZZ Grooming/Personal Hygiene Treatment (ICD-10-PCS; 2018-07-24)
DX: R53.81 Other malaise (principal); N17.9 Acute kidney failure, unspecified; R52 Pain, unspecified; E78.5 Hyperlipidemia, unspecified; Z85.030 Personal history of malignant carcinoid tumor of large intestine; Z86.73 Personal history of transient ischemic attack (TIA), and cerebral infarction without residual deficits; Z90.49 Acquired absence of other specified parts of digestive tract; R33.9 Retention of urine, unspecified; I10 Essential (primary) hypertension; N40.0 Benign prostatic hyperplasia without lower urinary tract symptoms
CPT/HCPCS: 80048; 80053; 81001; 83735; 84100; 84153; 84154; 85025; 87081; 87086; 97110; 97112; 97116; 97150; 97163; 97167; 97530; 97535; 97542; A4310; J0696; J1650; L1932; L2820

== ENCOUNTER 2018-11-11 20:51 | Inpatient (IN) | payer OTHER ==
[~2018-11-11] VITALS: Ht 160 cm; Wt 81.8 kg
[~2018-11-11 20:51] MED LIST changes: +AMPI500C9 PO
[2018-11-12] MEDS ORDERED: hydrALAzine 20 MG INJ IV ONE (02:30)
[2018-11-12] MEDS: hydrALAzine 20 MG INJ IV PRN (07:45)
[2018-11-12 15:19] VITALS: BP 168/74; PULSE 77; RESP 18
[2018-11-12 16:00] VITALS: BP 168/74; PULSE 77; RESP 18; Ht 160 cm; Wt 81.8 kg
[2018-11-12 16:01] VITALS: PULSE 78
[2018-11-12] MEDS ORDERED: ONDANSETRON 4 MG INJ IV PRN (17:00)
[2018-11-12] MEDS ORDERED: ACETAMINOPHEN 325 MG TAB PO PRN (17:00)
[2018-11-12] MEDS: INSULIN ASPART [NOVOLOG] 3 ML PEN SC SCH ×2 (17:29→21:00)
[2018-11-12] MEDS ORDERED: GLUCOSE GEL 15 GRAM TUBE PO PRN ×2 (17:30)
[2018-11-12] MEDS ORDERED: GLUCOSE GEL 15 GRAM TUBE BUCCAL PRN (17:30)
[2018-11-12] MEDS ORDERED: GLUCAGON 1 MG INJ IM PRN (17:30)
[2018-11-12] MEDS ORDERED: DEXTROSE 50% 50 ML SYRINGE IV PRN ×2 (17:30)
[2018-11-12] MEDS: AMLODIPINE 5 MG TAB PO SCH (17:31)
[2018-11-12 20:00] VITALS: PULSE 112
[2018-11-12 20:06] VITALS: BP 164/75; PULSE 89; RESP 18
[2018-11-12] MEDS: ATORVASTATIN 20 MG TAB PO SCH (21:48)
[2018-11-12 23:32] VITALS: BP 162/86; PULSE 81; RESP 18
[2018-11-13] VITALS (10 sets, daily range): BP systolic 148–168; BP diastolic 62–80; PULSE 61–81; RESP 17–19
[2018-11-13] MEDS: PANTOPRAZOLE (EC) 40 MG TAB PO SCH (06:44)
[2018-11-13] MEDS: INSULIN ASPART [NOVOLOG] 3 ML PEN SC SCH ×4 (08:00→21:00)
[2018-11-13] MEDS: ASPIRIN 81 MG TAB PO SCH (09:22)
[2018-11-13] MEDS: AMLODIPINE 5 MG TAB PO SCH ×2 (09:23→21:22)
--- NOTE | 2018-11-13 13:45 | QN ---
Documentation Comment seen and examiend DARIO DUNN MD November 13, 2018 13:45
--- NOTE | 2018-11-13 14:38 | CONS ---
Assessment/Plan Assessment/Plan Hospital Course 68 yo M with hx of CVA, colon CA and other comorbidities who presents with a transient alteration in awareness... for which neurology is consulted. The clinical picture is consistent with syncope vs. seizure. CTH is without acute intracranial pathology. CUS is unrevealing. P: Await MRI brain for further characterization EEG to evaluate for epileptiform activity Ativan IV PRN seizure > 5 min or for cluster Add orthostatics [place] as necessary OK to continue Namenda per ops Other management per primary Will follow clinically to recommend neurologic studies, as necessary Consultation Date/Type/Reason Admit Date/Time November 12, 2018 at 05:17 Type of Consult Neurology Reason for Consultation Syncope vs seizure Requesting Provider: DARIO DUNN MD Date/Time of Note DATE: 11/13/18 TIME: 14:38 Hx of Present Illness 68 yo M with hx of CVA, colon CA and other comorbidities who presented to the ED for evaluation of a transient alteration in awareness. History was obtained from , HCP and chart review as pt is a limited historian. Per the , the pt was going to the restroom when he reportedly had a blank stare and his extremities became rigid. The pt is not sure if he lost consciousness but states that he felt like he couldn't move. The states that the pt had one seizure episode 8 years for which they took him to the hospital. She states that he was started on seizure medications while in the hospital but wasn't discharged on them. The pt currently endorses feeling tired and weak. Currently denies any focal sx. negative unless noted otherwise in HPI Exam/Review of Systems Exam Vitals Vital Signs Date Temp Pulse Resp B/P (MAP) Pulse Ox O2 O2 Flow FiO2 Time Delivery Rate 11/13/18 65 12:07 11/13/18 98.0 18 162/80 98 04:47 (107) 11/12/18 Room Air 16:00 11/12/18 2.0 14:14 Intake and Output 11/12/18 11/12/18 11/13/18 1515:00 23:00 07:00 IntakeIntake Total 200 ml 200 ml BalanceBalance 200 ml 200 ml Exam PE: Gen Appearance: No Apparent Distress HEENT: Normocephalic Cardiovascular: Regular rate Lungs: Clear bilaterally Abdomen: Soft Extremities: Dry NE: The patient was alert though somewhat disoriented. Language was normal. Fund of knowledge was limited. Pupils were equal and reactive to light. There was no afferent pupillary defect. Visual skaggs were normal. Funduscopic examination was limited. Extra-ocular movements were full. Ptosis was absent. There was no nystagmus. Facial sensation was normal. Face was symmetric with normal strength. Hearing was intact. Palate movements were normal. Neck strength was normal. There was normal tongue bulk and speed of movement. Tone was normal. Muscle bulk was normal. I did not see fasciculations. The pt was generally weak, mildly. Vibration sensation was normal. Temperature and pinprick sensation was normal. Rapid alternating movements were normal. There was no dysmetria. There was no intention tremor. Gait was deferred due to bedrest. Arm and leg reflexes were 2+ and symmetric. Garcia's sign was absent. Plantar responses were flexor. Results Result Diagram: 11/12/18 0229 11/12/18 0229 Results 24hrs Laboratory Tests Test 11/12/18 17:27 11/12/18 21:37 11/13/18 07:45 11/13/18 12:30 Bedside Glucose 131 116 117 157 Medications Medication Current Medications Hydralazine HCl (Apresoline) 10 mg Q6H PRN IV ELEVATED BLOOD PRESSURE Last administered on 11/12/18at 07:45; Admin Dose 10 MG; Start 11/12/18 at 07:30 Acetaminophen (Tylenol Tab) 650 mg Q6H PRN PO MILD PAIN(1-3)OR ELEVATED TEMP; Start 11/12/18 at 17:00 Ondansetron HCl (Zofran Inj) 4 mg Q6H PRN IV NAUSEA AND/OR VOMITING; Start 11/12/18 at 17:00 Pantoprazole (Protonix Tab) 40 mg DAILY@06 PO Last administered on 11/13/18at 06:44; Admin Dose 40 MG; Start 11/13/18 at 06:00 Aspirin (Aspirin) 81 mg DAILY PO Last administered on 11/13/18at 09:22; Admin Dose 81 MG; Start 11/13/18 at 09:00 Atorvastatin Calcium (Lipitor) 20 mg HS PO Last administered on 11/12/18at 21:48; Admin Dose 20 MG; Start 11/12/18 at 21:00 Insulin Aspart (Novolog Insulin Pen) NOVOLOG *MILD* ALGORITHM WITH MEALS BEDTIME SC Last administered on 11/13/18at 12:34; Admin Dose 1 UNIT; Start 11/12/18 at 18:00 Miscellaneous Information 1 ea NOTE XX ; Start 11/12/18 at 17:30 Glucose (Glutose) 15 gm Q15M PRN PO DECREASED GLUCOSE; Start 11/12/18 at 17:30 Glucose (Glutose) 22.5 gm Q15M PRN PO DECREASED GLUCOSE; Start 11/12/18 at 17:30 Dextrose (D50w Syringe) 25 ml Q15M PRN IV DECREASED GLUCOSE; Start 11/12/18 at 17:30 Dextrose (D50w Syringe) 50 ml Q15M PRN IV DECREASED GLUCOSE; Start 11/12/18 at 17:30 Glucagon (Glucagen) 1 mg Q15M PRN IM DECREASED GLUCOSE; Start 11/12/18 at 17:30 Glucose (Glutose) 15 gm Q15M PRN BUCCAL DECREASED GLUCOSE; Start 11/12/18 at 17:30 Amlodipine Besylate (Norvasc) 5 mg BID PO ; Start 11/13/18 at 21:00 Past Medical History reviewed Home Meds Active Scripts Loperamide Hcl* (Imodium*) 2 Mg Capsule, 2 MG PO .AFTER EA LOOSE BM PRN for DIARRHEA, #10 TAB Prov:JENNIFER MANRIQUE MD 07/13/18 Ondansetron (Ondansetron Odt) 4 Mg Tab.rapdis, 4 MG PO Q6H PRN for NAUSEA AND/OR VOMITING, #10 TAB Prov:JENNIFER MANRIQUE MD 07/13/18 Reported Medications Oxybutynin Chloride* (Oxybutynin Chloride*) 5 Mg/5 Ml Syrup, 5 MG PO BID, ML 11/13/18 Memantine* (Namenda*) 5 Mg Tablet, 5 MG PO QHS, #30 TAB 11/13/18 Quetiapine Fumarate* (Seroquel*) 100 Mg Tablet, 100 MG PO HS, #30 TAB 11/13/18 Tolterodine Tartrate* (Tolterodine Tartrate*) 2 Mg Tablet, 4 MG PO QHS, #60 TAB 11/13/18 Famotidine (Heartburn Prevention) 20 Mg Tablet, 20 MG PO BID, TAB 11/13/18 Cholecalciferol* (Vitamin D3*) 1,000 Unit Tablet, 5000 UNIT PO DAILY, TAB 11/13/18 Ferrous Sulfate* (Ferrous Sulfate*) 325 Mg Tabec, 325 MG PO BID, TAB 11/13/18 Lorazepam* (Lorazepam*) 1 Mg Tablet, 1 MG PO Q12 PRN for ANXIETY, #60 TAB 11/13/18 Haloperidol* (Haldol*) 5 Mg Tab, 5 MG PO DAILY, TAB 11/13/18 Folic Acid* (Folic Acid*) 1 Mg Tablet, 1 MG PO DAILY, TAB 09/11/16 Atorvastatin Calcium* (Atorvastatin Calcium*) 20 Mg Tablet, 20 MG PO QHS, #30 TAB 09/11/16 Aspirin* (Aspirin* EC) 81 Mg Tablet.dr, 81 MG PO DAILY, TAB 09/11/16 Discontinued Scripts Ampicillin* (Ampicillin*) 500 Mg Cap, 500 MG PO Q8 for 5 Days, #15 CAP Prov:SHEILA LAYTON V. CROZE CUTTER HELPER 08/06/18 Medications Current Medications Hydralazine HCl (Apresoline) 10 mg Q6H PRN IV ELEVATED BLOOD PRESSURE Last administered on 11/12/18at 07:45; Admin Dose 10 MG; Start 11/12/18 at 07:30 Acetaminophen (Tylenol Tab) 650 mg Q6H PRN PO MILD PAIN(1-3)OR ELEVATED TEMP; Start 11/12/18 at 17:00 Ondansetron HCl (Zofran Inj) 4 mg Q6H PRN IV NAUSEA AND/OR VOMITING; Start 11/12/18 at 17:00 Pantoprazole (Protonix Tab) 40 mg DAILY@06 PO Last administered on 11/13/18at 06:44; Admin Dose 40 MG; Start 11/13/18 at 06:00 Aspirin (Aspirin) 81 mg DAILY PO Last administered on 11/13/18at 09:22; Admin Dose 81 MG; Start 11/13/18 at 09:00 Atorvastatin Calcium (Lipitor) 20 mg HS PO Last administered on 11/12/18at 21:48; Admin Dose 20 MG; Start 11/12/18 at 21:00 Insulin Aspart (Novolog Insulin Pen) NOVOLOG *MILD* ALGORITHM WITH MEALS BEDTIME SC Last administered on 11/13/18at 12:34; Admin Dose 1 UNIT; Start at 18:00 Miscellaneous Information 1 ea NOTE XX ; Start 11/12/18 at 17:30 Glucose (Glutose) 15 gm Q15M PRN PO DECREASED GLUCOSE; Start 11/12/18 at 17:30 Glucose (Glutose) 22.5 gm Q15M PRN PO DECREASED GLUCOSE; Start 11/12/18 at 17:30 Dextrose (D50w Syringe) 25 ml Q15M PRN IV DECREASED GLUCOSE; Start 11/12/18 at 17:30 Dextrose (D50w Syringe) 50 ml Q15M PRN IV DECREASED GLUCOSE; Start 11/12/18 at 17:30 Glucagon (Glucagen) 1 mg Q15M PRN IM DECREASED GLUCOSE; Start 11/12/18 at 17:30 Glucose (Glutose) 15 gm Q15M PRN BUCCAL DECREASED GLUCOSE; Start 11/12/18 at 17:30 Amlodipine Besylate (Norvasc) 5 mg BID PO ; Start 11/13/18 at 21:00 Allergies: Coded Allergies: No Known Allergy (Unverified , 11/12/18) Past Surgical History reviewed Past Surgical Hx: bowel resection, endoscopy Social History reviewed Smoking Status: Former smoker LUIS MENDOZA NP November 13, 2018 14:38 SANTOS DRAPER November 14, 2018 06:44
[2018-11-13] MEDS ORDERED: MEMA5TAB PO (14:49)
[2018-11-13] MEDS ORDERED: [UNRECOGNIZED DRUG - CODE] PO (14:49)
[2018-11-13] MEDS ORDERED: CHOL100062 PO (14:49)
[2018-11-13] MEDS ORDERED: TOLT2TAB5 PO (14:49)
[2018-11-13] MEDS ORDERED: LORA1TAB PO (14:49)
[2018-11-13] MEDS ORDERED: FER325 PO (14:49)
[2018-11-13] MEDS ORDERED: OXYB5SYR2 PO (14:49)
[2018-11-13] MEDS ORDERED: QUET100T PO (14:49)
[2018-11-13] MEDS ORDERED: HALO5TAB23 PO (14:49)
--- NOTE | 2018-11-13 16:37 | RADRPT ---
Echocardiogram Report Patient Name: Amber MANUEL ID: [id number] : [id number] (68y 7m)Study Date: 11/13/2018 7:15:34 AM Gender: MAccession #: [id number] Tech: Nilton Morrow [facility] Location: 5 Ref.Physician: DARIO DUNN Height(Cm): BSA: Weight(Kg): Quality: AdequateAccount #: Procedures: Echocardiographic Report: Transthoracic echocardiogram with complete 2D, M-Mode, and doppler examination. Indications: Chest Pain. Measurements: 2D/M Mode Doppler Measurement Value Normal Range Measurement Value Normal Range LVIDd 2D 4.4 [ 4.2 - 5.8 ] cm AV Peak Dangelo 1.9 [ 100.0 - 170.0 ] cm/sec LVIDs 2D 2.6 [ 2.5 - 4.0 ] cm AV Peak PG 15.0 [ 2.0 - 9.0 ] mmHg IVSd 2D 1.5 [ 0.6 - 1.0 ] cm AI Peak PG 84.0 mmHg AoR Diam 2D 3.4 [ 2.6 - 3.4 ] cm AI Peak Dangelo 4.6 cm/sec LA Dimen 2D 3.5 [ 3.0 - 4.0 ] cm AI PHT 489.0 msec MV E Peak Dangelo 0.6 [ 60.0 - 130.0 ] cm/sec MV A Peak Dangelo 1.2 [ 100.0 - 120.0 ] cm/sec MV E/A 0.5 [ 0.8 - 1.5 ] ratio MV Decel Time 95 [ 104 - 258 ] msec MV E/A 0.5 [ 0.8 - 1.5 ] ratio Findings: Left Ventricle: Normal left ventricular systolic function. Normal left ventricular cavity size. Severe concentric left ventricular hypertrophy. Ejection fraction is visually estimated at 55 %. Tissue Doppler/Mitral Doppler indices are consistent with impaired relaxation (Stage I diastolic dysfunction). Right Ventricle: Normal right ventricular size. Normal right ventricular systolic function. Left Atrium: The left atrium is normal in size. Right Atrium: The right atrium is normal in size. Mitral Valve: Normal appearance and function of the mitral valve with trace physiologic regurgitation. Aortic Valve: No hemodynamically significant aortic stenosis by doppler. Aortic cusps appear mildly calcified. Mild aortic valve regurgitation. Tricuspid Valve: Normal appearance and function of the tricuspid valve with trace physiologic regurgitation. Normal right ventricular systolic pressure. Pulmonic Valve: Normal pulmonic valve appearance. Pericardium: Normal pericardium with no significant pericardial effusion. Aorta: Normal aortic root. IVC: Normal size and normal respiratory collapse consistent with normal right atrial pressure. Conclusions: Normal left ventricular systolic function. Normal left ventricular cavity size. Severe concentric left ventricular hypertrophy. Ejection fraction is visually estimated at 55 %. Tissue Doppler/Mitral Doppler indices are consistent with impaired relaxation (Stage I diastolic dysfunction). Normal appearance and function of the mitral valve with trace physiologic regurgitation. No hemodynamically significant aortic stenosis by doppler. Aortic cusps appear mildly calcified. Mild aortic valve regurgitation. Normal appearance and function of the tricuspid valve with trace physiologic regurgitation. Normal right ventricular systolic pressure. Electronically Signed By: Ike Phelps 2018-11-13 16:36:44 PDT
[2018-11-13] MEDS: ATORVASTATIN 20 MG TAB PO SCH (21:21)
[2018-11-14] VITALS (10 sets, daily range): BP systolic 130–168; BP diastolic 62–89; PULSE 66–99; RESP 18–20
[2018-11-14] MEDS: PANTOPRAZOLE (EC) 40 MG TAB PO SCH (05:49)
[2018-11-14] MEDS ORDERED: LORAZEPAM 2 MG INJ IV ONE (06:00)
[2018-11-14] MEDS: hydrALAzine 20 MG INJ IV PRN (06:28)
--- NOTE | 2018-11-14 06:57 | HP ---
DATE OF ADMISSION: 11/12/2018 REASON FOR ADMISSION: Possible syncope. HISTORY OF PRESENT ILLNESS: This is a 68-year-old male with a past medical history of colon cancer w ith recurrent adenocarcinoma of the rectum and history of CVA with some mild right leg weakness, hype rtension, dyslipidemia, questionable remote seizure disorder, presented to the Emergency Department a fter being brought by paramedics. According to the , patient went to the bathroom in the morning . His noted that he was taking more time than usual. She went inside and saw him that he was g rabbing the side rails and he was standing. However, the patient was completely awake, alert, consci ous. The patient was very weak. She thought that he is going to sway on the side. He called parame dics and paramedics saw him, and they brought him to the hospital for further evaluation. On admissi on, temperature was 98.3. PHYSICAL EXAMINATION: VITALS: Blood pressure 201/94, respiratory rate was 18. Labs showed white count 9.1, hemoglobin 15. 7, platelet count 249. Troponin 0.100. BUN of 23, creatinine 1.02. INR of 0.85. UA slightly cloud y, 2+ glucose, 3+ protein. Patient had a CT of the brain that showed moderate diffuse atrophy, old r ight posterior cerebral artery distribution infarct, old left basal ganglia infarct. Old calci fications in the right bilateral most consistent with sequelae of prior neurocysticercosi s, vascular calcifications and the patient was admitted for further management. PAST MEDICAL HISTORY: 1. History of colon cancer in the past with recurrent adenocarcinoma of the rectum. 2. History of urinary retention. 3. History of cerebrovascular accident. 4. Hypertension. 5. Hyperlipidemia. 6. History of remote seizure disorder. ALLERGIES: None. MEDICATIONS: Taking at home are: 1. 650. 2. Zofran 4 mg. 3. Haloperidol. 4. Lorazepam. 5. Iron sulfate. 6. Vitamin D3. 7. Famotidine 8. . 9. Quetiapine. 10. Amantadine. 11. Oxybutynin. SOCIAL HISTORY: Former smoker. PAST SURGICAL HISTORY: Bowel resection. The patient has a colostomy. FAMILY HISTORY: Significant for colon cancer in brother. REVIEW OF SYSTEMS: The patient denied any seizure episodes. No chest pain, no shortness of breath, no dizziness prior to the episode. Denied any abdominal pain, nausea, vomiting, diarrhea. Denied an y headache, any blurry vision. Denies any focal neurological deficits. PHYSICAL EXAMINATION: VITAL SIGNS: Currently blood pressure is 162/80, afebrile, pulse 71, saturating 98%. GENERAL: The patient is awake, alert, oriented, does not appear to be in acute distress. HEENT: Pupils equal, round, react to light. NECK: Supple, no JVD. HEART: Regular rate and rhythm. LUNGS: Clear to auscultate bilaterally. ABDOMEN: The patient has a left colostomy bag. Positive bowel sounds. EXTREMITIES: Some right leg residual weakness, 4/5. DIAGNOSTIC DATA: Potassium 3.3, BUN of 23, creatinine 1.02. Troponin 0.100. LABORATORY DATA: White count 9.1, hemoglobin 15.7, platelet count 249. UA 2+ glucose, 3+ peripheral , total protein. INR is 0.85. CT of the head shows old neurocysticercosis, old posterior cerebral a rtery stenosis. Mild diffuse atrophy. Chest x-ray shows shallow inspiration with mild basilar segmental atelectasis. ASSESSMENT: This is a 68-year-old male with: 1. Near syncope; however, the patient never really passed out while the patient was in shower. CT o f the head is negative. Could also just be gait instability. Patient had history of remote seizure disorder. CT of the head is negative for any acute stroke. 2. Hypokalemia. 3. Diabetes. 4. Hypertension. 5. Hyperlipidemia. 6. 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 Spoke to the son, the patient is supposed to have followup with Dr. Gudino as an outpatient for new chemo regimen. PLAN: At this period of time, the patient is admitted to [facility]. We will check neuro checks frequentl y. The patient will be on aspirin and statin. The patient will be on Norvasc for blood pressure con trol. We will get an MRI, carotid and echo. We will also get an EKG, repeat troponin. A neurology consultation has been obtained. We will also get a PT evaluation. Rest of the treatment will depend on the patient's hospitalization course. We will also hold the patient's: 1. Haldol 2. Lorazepam. 3. Quetiapine. Dictated By: DARIO BROOKS/ABDOULAYE Conf#: [id number] DID#: [id number] CC: RON COBIAN MD;*EndCC*
[2018-11-14] MEDS: INSULIN ASPART [NOVOLOG] 3 ML PEN SC SCH ×4 (08:00→21:00)
[2018-11-14] MEDS: ASPIRIN 81 MG TAB PO SCH (08:13)
[2018-11-14] MEDS: AMLODIPINE 5 MG TAB PO SCH ×2 (08:13→21:13)
--- NOTE | 2018-11-14 15:16 | PN ---
Date/Time of Note Date/Time of Note DATE: 11/14/18 TIME: 14:59 Assessment/Plan VTE Prophylaxis Risk score (from Ns)>0 risk: 2 SCD applied (from [facility] [place] No SCD contraindicated: low risk/ambulating Pharmacological prophylaxis: NA/contraindicated Pharm contraindication: low risk/ambulating Lines/Catheters IV Catheter Type (from [facility]): Saline Lock Urinary Cath still in place: No Assessment/Plan Assessment/Plan ASSESSMENT: This is a 68-year-old male with: 1. blank stare/ stiff ext/near syncopy ? seizure vs cardiac; however, the patient never really passed out while the patient was in shower. CT of the head is negative. Could also just be gait instability. Patient had history of remote seizure disorder. CT of the head is negative for any acute stroke. 2 Elevated trop ro ACS 2. Hypokalemia. 3. Diabetes. 4. Hypertension. 5. Hyperlipidemia. 6. 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 Spoke to the son, the patient is supposed to have followup with Dr. Gudino as an outpatient for new chemo regimen. 7 hematuria new onset 8 anxiety plan - MRI neg - EEG pending - pending cards eval - renal US - Check UA - FU Neuro/cardiac recs Result Diagram: 11/14/18 0547 11/14/18 0547 Results 24hrs Laboratory Tests Test 11/13/18 18:23 11/13/18 20:42 11/14/18 05:47 11/14/18 08:12 Bedside Glucose 136 147 128 White Blood Count 9.4 Red Blood Count 4.94 Hemoglobin 14.1 Hematocrit 43.0 Mean Corpuscular Volume 87.0 Mean Corpuscular 28.5 L Hemoglobin Mean Corpuscular 32.8 Hemoglobin Concent Red Cell Distribution 14.6 H Width Platelet Count 227 Mean Platelet Volume 11.3 H Immature Granulocytes % 0.300 Neutrophils % 69.1 Lymphocytes % 20.0 Monocytes % 7.5 Eosinophils % 2.3 Basophils % 0.8 Nucleated Red Blood 0.0 Cells % Immature Granulocytes # 0.030 Neutrophils # 6.5 Lymphocytes # 1.9 Monocytes # 0.7 Eosinophils # 0.2 Basophils # 0.1 Nucleated Red Blood 0.0 Cells # Sodium Level 140 Potassium Level 3.5 Chloride Level 102 Carbon Dioxide Level 28 Anion Gap 10 Blood Urea Nitrogen 23 H Creatinine 0.84 Est Glomerular Filtrat > 60 Rate mL/min Glucose Level 110 Calcium Level 9.5 Phosphorus Level 3.9 Magnesium Level 1.8 Troponin I 0.490 *H Test 11/14/18 11:49 Bedside Glucose 118 Subjective 24 Hr Interval Summary Free Text/Dictation Hematuria, burning sensation anxious at night elevated trop Exam/Review of Systems Exam Vitals Vital Signs Date Temp Pulse Resp B/P (MAP) Pulse Ox O2 O2 Flow FiO2 Time Delivery Rate 11/14/18 94 12:00 11/14/18 98.3 20 130/70 96 11:45 (90) 11/12/18 Room Air 16:00 11/12/18 2.0 14:14 Intake and Output 11/13/18 11/13/18 11/14/18 1515:00 23:00 07:00 IntakeIntake Total 1000 ml 500 ml OutputOutput Total 900 ml BalanceBalance 1000 ml -400 ml Exam Gen Appearance: No Apparent Distress HEENT: Normocephalic Cardiovascular: Regular rate Lungs: Clear bilaterally Abdomen: Soft Results Results 24hrs Laboratory Tests Test 11/13/18 18:23 11/13/18 20:42 11/14/18 05:47 11/14/18 08:12 Bedside Glucose 136 147 128 White Blood Count 9.4 Red Blood Count 4.94 Hemoglobin 14.1 Hematocrit 43.0 Mean Corpuscular Volume 87.0 Mean Corpuscular 28.5 L Hemoglobin Mean Corpuscular 32.8 Hemoglobin Concent Red Cell Distribution 14.6 H Width Platelet Count 227 Mean Platelet Volume 11.3 H Immature Granulocytes % 0.300 Neutrophils % 69.1 Lymphocytes % 20.0 Monocytes % 7.5 Eosinophils % 2.3 Basophils % 0.8 Nucleated Red Blood 0.0 Cells % Immature Granulocytes # 0.030 Neutrophils # 6.5 Lymphocytes # 1.9 Monocytes # 0.7 Eosinophils # 0.2 Basophils # 0.1 Nucleated Red Blood 0.0 Cells # Sodium Level 140 Potassium Level 3.5 Chloride Level 102 Carbon Dioxide Level 28 Anion Gap 10 Blood Urea Nitrogen 23 H Creatinine 0.84 Est Glomerular Filtrat > 60 Rate mL/min Glucose Level 110 Calcium Level 9.5 Phosphorus Level 3.9 Magnesium Level 1.8 Troponin I 0.490 *H Test 11/14/18 11:49 Bedside Glucose 118 Medications Medication Current Medications Hydralazine HCl (Apresoline) 10 mg Q6H PRN IV ELEVATED BLOOD PRESSURE Last administered on 11/14/18at 06:28; Admin Dose 10 MG; Start 11/12/18 at 07:30 Acetaminophen (Tylenol Tab) 650 mg Q6H PRN PO MILD PAIN(1-3)OR ELEVATED TEMP; Start 11/12/18 at 17:00 Ondansetron HCl (Zofran Inj) 4 mg Q6H PRN IV NAUSEA AND/OR VOMITING; Start 11/12/18 at 17:00 Pantoprazole (Protonix Tab) 40 mg DAILY@06 PO Last administered on 11/14/18at 05:49; Admin Dose 40 MG; Start 11/13/18 at 06:00 Aspirin (Aspirin) 81 mg DAILY PO Last administered on 11/14/18at 08:13; Admin Dose 81 MG; Start 11/13/18 at 09:00 Atorvastatin Calcium (Lipitor) 20 mg HS PO Last administered on 11/13/18at 21:21; Admin Dose 20 MG; Start 11/12/18 at 21:00 Insulin Aspart (Novolog Insulin Pen) NOVOLOG *MILD* ALGORITHM WITH MEALS BEDTIME SC Last administered on 11/13/18at 12:34; Admin Dose 1 UNIT; Start at 18:00 Miscellaneous Information 1 ea NOTE XX ; Start 11/12/18 at 17:30 Glucose (Glutose) 15 gm Q15M PRN PO DECREASED GLUCOSE; Start 11/12/18 at 17:30 Glucose (Glutose) 22.5 gm Q15M PRN PO DECREASED GLUCOSE; Start 11/12/18 at 17:30 Dextrose (D50w Syringe) 25 ml Q15M PRN IV DECREASED GLUCOSE; Start 11/12/18 at 17:30 Dextrose (D50w Syringe) 50 ml Q15M PRN IV DECREASED GLUCOSE; Start 11/12/18 at 17:30 Glucagon (Glucagen) 1 mg Q15M PRN IM DECREASED GLUCOSE; Start 11/12/18 at 17:30 Glucose (Glutose) 15 gm Q15M PRN BUCCAL DECREASED GLUCOSE; Start 11/12/18 at 17:30 Amlodipine Besylate (Norvasc) 5 mg BID PO Last administered on 11/14/18at 08:13; Admin Dose 5 MG; Start 11/13/18 at 21:00 Memantine (Namenda) 5 mg QHS PO ; Start 11/14/18 at 21:00; Status UNV Quetiapine Fumarate (Seroquel) 100 mg HS PO ; Start 11/14/18 at 21:00; Status UNV Tolterodine Tartrate (Detrol) 4 mg QHS PO ; Start 11/14/18 at 21:00; Status UNV DARIO DUNN MD November 14, 2018 15:16
--- NOTE | 2018-11-14 15:56 | CONS ---
Assessment/Plan Assessment/Plan Hospital Course 68 yo M with hx of CVA, colon CA and other comorbidities who presents with a transient alteration in awareness... for which neurology is consulted. The clinical picture is consistent with syncope vs. seizure. MRI brain is without acute intracranial pathology...though notable for a prior transcortical infarction. CUS is unrevealing. P: Await EEG to evaluate for epileptiform activity Ativan IV PRN seizure > 5 min or for cluster Await orthostatics [place] as necessary OK to continue Namenda per ops Other management per primary Will follow clinically to recommend neurologic studies, as necessary Consultation Date/Type/Reason Admit Date/Time November 14, 2018 at 08:53 Type of Consult Neurology Reason for Consultation Syncope vs seizure Requesting Provider: DARIO DUNN MD Date/Time of Note DATE: 11/14/18 TIME: 15:55 24 HR Interval Summary Free Text/Dictation Continues acute care. S/p MRI. Awaiting EEG. Exam Vital Signs Vitals Vital Signs Date Temp Pulse Resp B/P (MAP) Pulse Ox O2 O2 Flow FiO2 Time Delivery Rate 11/14/18 94 12:00 11/14/18 98.3 20 130/70 96 11:45 (90) 11/12/18 Room Air 16:00 11/12/18 2.0 14:14 Intake and Output 11/13/18 11/13/18 11/14/18 1414:59 22:59 06:59 IntakeIntake Total 1000 ml 500 ml OutputOutput Total 900 ml BalanceBalance 1000 ml -400 ml Exam PE: Gen Appearance: No Apparent Distress HEENT: Normocephalic Cardiovascular: Regular rate Lungs: Clear bilaterally Abdomen: Soft Extremities: Dry NE: The patient was asleep though easily arousable; disoriented. Language was normal. Fund of knowledge was limited. Pupils were equal and reactive to light. There was no afferent pupillary defect. Visual skaggs were normal. Funduscopic examination was limited. Extra-ocular movements were full. Ptosis was absent. There was no nystagmus. Facial sensation was normal. Face was symmetric with normal strength. Hearing was intact. Palate movements were normal. Neck strength was normal. There was normal tongue bulk and speed of movement. Tone was normal. Muscle bulk was normal. I did not see fasciculations. The pt was generally weak, mildly. Vibration sensation was normal. Temperature and pinprick sensation was normal. Rapid alternating movements were normal. There was no dysmetria. There was no intention tremor. Gait was deferred due to bedrest. Arm and leg reflexes were 2+ and symmetric. Garcia's sign was absent. Plantar responses were flexor. LUIS MENDOZA NP November 14, 2018 15:56 SANTOS DRAPER November 15, 2018 06:42
--- NOTE | 2018-11-14 19:10 | RADRPT ---
Vent Rate: 67 bpm RR Interval: 900 msec IL Interval: 200 msec QRS Duration: 93 msec QT Interval: 433 msec QTC Interval: 456 msec P-R-T [place]: 58 - 103 - 105 degrees Sinus rhythm...normal P axis, V-rate 50- 99 Probable left atrial enlargement...P >50mS, <-0.10mV V1 Right axis deviation...QRS axis ( 30,186) Electronically Signed By: Pérez Rey
--- NOTE | 2018-11-14 19:11 | RADRPT ---
Vent Rate: 70 bpm RR Interval: 0 msec [place] Interval: 202 msec QRS Duration: 104 msec QT Interval: 426 msec QTC Interval: 460 msec P-R-T [place]: 47 - 50 - 108 degrees Normal sinus rhythm ST & T wave abnormality, consider lateral ischemia Prolonged QT Abnormal ECG Electronically Signed By: Pérez Rey
[2018-11-14] MEDS ORDERED: QUETIAPINE 100 MG TAB PO SCH (21:00)
[2018-11-14] MEDS: MEMANTINE 5 MG TAB PO SCH (21:12)
[2018-11-14] MEDS: METOPROLOL 25 MG TAB PO SCH (21:12)
[2018-11-14] MEDS: TOLTERODINE (SR) 4 MG CAP PO SCH (21:12)
[2018-11-14] MEDS: ATORVASTATIN 20 MG TAB PO SCH (21:12)
--- NOTE | 2018-11-14 23:35 | CONS ---
DATE OF ADMISSION: 11/14/2018 DATE OF CONSULTATION: 11/14/2018 REASON FOR CONSULTATION: Syncopal episode, positive troponin, rule out true acute coronary syndrome. REQUESTING PHYSICIAN: Dr. Bassam Cobian, Dr. Joy Dunn. HISTORY OF PRESENT ILLNESS: Mr. Darren Amezcua is a 68-year-old male with history of colon CA with re current adenocarcinoma of the rectum, history of CVA with associated right lower extremity weakness, hypertension, dyslipidemia, possible seizure disorder. He was brought in by paramedics after the pat cliffordnt's had noted that he is in bathroom too long came in there and found that he was grabbing on to the side kent and standing try to keep from falling, he felt like. The patient was brought here to the emergency department here at [facility] where upon arrival, temperature 98. 3, blood pressure 201/94, pulse 95, respiratory rate 18, satting 97%. The patient's labs were notabl e for white count 9.1, hemoglobin 7, platelet count 249. Sodium of 143, potassium 3.3, creatinine 1. 0, BUN 23. Troponin 0.1. Thereafter, positive 0.719 just trend down from there. INR 0.85. UA bord breann. The patient underwent a chest x-ray revealing shallow respirations, mild bibasilar subsegmen colton atelectasis, a head CT that revealed moderate diffuse atrophy, microangiopathic ischemic changes, old right posterior cerebral artery distal infarct, old left basal ganglia lacunar infarct. Carotid Doppler revealing no evidence for hemodynamically significant stenosis of bilateral internal carotid arteries and a brain MRI that reveals no acute rather remote transcranial infarct in the right upper lobe with laminar necrosis remote lacunar infarcts within bilateral thalamic, medial left globus pal lidus and left posterior internal capsule. The patient's electrocardiogram revealed normal sinus rhy thm at a rate of 70 with normal axis and intervals, lateral T-wave inversion. The patient subsequent ly admitted to floor and since admit to the floor on telemetry revealing sinus rhythm. The patient's troponins initially trended up from 0.1 to 0.79 and back down to 0.490. The patient denies chest pa in at this time. PAST MEDICAL HISTORY: As above in HPI. Additionally, patient has history of dementia, dyslipidemia, possible urinary incontinence. MEDICATIONS CURRENTLY IN HOSPITAL: 1. Namenda 5 mg at bedtime. 2. Detrol-LA 4 mg at bedtime 3. Norvasc 5 mg b.i.d. 4. Aspirin 81 mg daily. 5. mg daily. 6. Atorvastatin 20 mg at bedtime. 7. Insulin sliding scale. ALLERGIES: NO KNOWN DRUG ALLERGIES. SOCIAL HISTORY: No current tobacco, ETOH or illicit drug use. FAMILY HISTORY: No sudden cardiac or early CAD. REVIEW OF SYSTEMS: As above in HPI. CONSTITUTIONAL: No fevers, chills. PULMONARY: No current shortness of breath. CARDIOVASCULAR: No current chest pain. GASTROINTESTINAL: No vomiting. GENITOURINARY: No hematuria. MUSCULOSKELETAL: Degenerative joint disease. PSYCHIATRIC: No documented psych history. NEUROLOGIC: Positive CVA by scan. ENDOCRINE: Diabetes mellitus. PHYSICAL EXAMINATION: VITAL SIGNS: Temperature of 98.3, blood pressure most recently 130/70, pulse 81, respiratory rate 20 , satting 96%. GENERAL: The patient is sleeping but arousable, in no acute distress. NECK: JVP approximately 8 to 9 cm of water. CHEST: Fair air movement throughout. HEART: Regular rate and rhythm. Normal S1, S2, 1/6 systolic murmur. Nondisplaced PMI. ABDOMEN: Positive bowel sounds, soft. EXTREMITIES: No edema, 1+ pulses bilateral posterior tibial. LABORATORY DATA: As above in HPI. Most recent from today, sodium 140, potassium 3.5, creatinine 0.8 , BUN 23. White blood cell count of 9.4, hemoglobin 12.1, platelet count 227. IMAGING STUDIES: As above in HPI. No further imaging studies for my review at this time. ECG: As above in HPI with repeat EKG from today revealing sinus rhythm, rate 67, normal axis, normal intervals, with nonspecific ST-T wave abnormalities. IMPRESSION: 1. Positive troponin in the setting of possible syncope versus seizures without syncope. The patien t may have been caused by acute coronary syndrome and if the seizures may have been the cause of the patient's positive troponin, acute . 2. Abnormal echocardiogram with nonspecific ST-T wave abnormalities, assess for acute coronary syndr ome. 3. Possible syncope versus seizure. 4. Hypertension. 5. Dyslipidemia. 6. Dementia. 7. Possible urinary incontinence. RECOMMENDATIONS: 1. At this time, would maintain patient on telemetry monitoring to follow rhythm and rate control cl radha. 2. Continue to trend the patient's cardiac enzymes, assess for any significant ongoing cardiac damag e and continue the patient's current Norvasc and will start patient on beta kelly in the setting of positive troponins. 3. The patient is status post 2D echo revealing a preserved EF. 4. Will check a fasting lipid panel and adjust the patient's statin therapy as necessary. 5. Ongoing neurologic evaluation with EEG pending. 6. We will consider a cardiac stress test of patient to further assess the significance of positive troponin. Thank you for allowing me to take part in the care of this patient. I will continue to follow him ve ry closely with you with further recommendations to be made as the patient [facility]. Dictated By: JONNATHAN BHATT/ABDOULAYE Conf#: [id number] DID#: [id number] CC: BASSAM COBIAN MD; JOY DUNN;*End*
[2018-11-15] VITALS (9 sets, daily range): BP systolic 142–192; BP diastolic 63–85; PULSE 16–78; RESP 18–20
[2018-11-15] MEDS: PANTOPRAZOLE (EC) 40 MG TAB PO SCH (06:38)
[2018-11-15] MEDS: INSULIN ASPART [NOVOLOG] 3 ML PEN SC SCH ×4 (08:00→20:33)
[2018-11-15] MEDS: AMLODIPINE 5 MG TAB PO SCH ×2 (08:57→20:32)
[2018-11-15] MEDS: ASPIRIN 81 MG TAB PO SCH (08:57)
[2018-11-15] MEDS: METOPROLOL 25 MG TAB PO SCH ×2 (08:58→20:32)
--- NOTE | 2018-11-15 09:58 | CONS ---
Consult Date/Type/Reason Admit Date/Time November 14, 2018 at 08:53 Initial Consult Date Requesting Provider: DARIO DUNN MD Date/Time of Note DATE: 11/15/18 TIME: 09:56 Subjective NO acute events - no tachy-micki on tele - Stress test planned today. ROS: No fever, no chills, no nausea, no vomiting, no diarrhea/constipation No recent weight changes No chest pain, no PND, no orthopnea No dizziness, blurred vision No thirst, no heat or cold intolerance Objective Vitals Vital Signs Date Temp Pulse Resp B/P (MAP) Pulse Ox O2 O2 Flow FiO2 Time Delivery Rate 11/15/18 77 08:41 11/15/18 98.3 20 149/63 97 07:28 (91) 11/12/18 Room Air 16:00 11/12/18 2.0 14:14 Intake and Output 11/14/18 11/14/18 11/15/18 1515:00 23:00 07:00 IntakeIntake Total 400 ml 300 ml OutputOutput Total 350 ml 400 ml BalanceBalance 50 ml -100 ml Exam General: WN/WD/NAD, AOx 3 HEENT: Unicetric/atraumatic/EOMI (follow commands) NECK: JVD elevated, no thyromegaly Lymph: no lymphadenopathy HEART: regular with no S3, II/ systolic murmur at apex, PMI L LUNGS: Coarse sounds ABD: soft, NT, ND, +BS : Intact Neuro: non focal SKIN: chronic changes EXT: trace edema Results/Medications Result Diagram: 11/14/18 0547 11/15/18 0451 Results 24 hrs Laboratory Tests Test 11/14/18 11:49 11/14/18 17:16 11/14/18 21:08 11/15/18 01:09 Bedside Glucose 118 146 154 Creatine Kinase 136 Creatine Kinase Index 2.7 Creatinine Kinase MB 3.69 H (Mass) Troponin I 0.342 *H Test 11/15/18 04:51 11/15/18 08:56 Sodium Level 141 Potassium Level 3.6 Chloride Level 107 Carbon Dioxide Level 28 Anion Gap 6 Blood Urea Nitrogen 32 H Creatinine 0.98 Est Glomerular > 60 Filtrat Rate mL/min Glucose Level 121 Calcium Level 8.9 Creatine Kinase 134 Creatine Kinase Index 2.6 Creatinine Kinase MB 3.48 H (Mass) Troponin I 0.319 *H Bedside Glucose 119 Home Meds Active Scripts Loperamide Hcl* (Imodium*) 2 Mg Capsule, 2 MG PO .AFTER EA LOOSE BM PRN for D IARRHEA, #10 TAB Prov:JENNIFER MANRIQUE MD 07/13/18 Ondansetron (Ondansetron Odt) 4 Mg Tab.rapdis, 4 MG PO Q6H PRN for NAUSEA AND/OR VOMITING, #10 TAB Prov:JENNIFER MANRIQUE MD 07/13/18 Reported Medications Oxybutynin Chloride* (Oxybutynin Chloride*) 5 Mg/5 Ml Syrup, 5 MG PO BID, ML 11/13/18 Memantine* (Namenda*) 5 Mg Tablet, 5 MG PO QHS, #30 TAB 11/13/18 Quetiapine Fumarate* (Seroquel*) 100 Mg Tablet, 100 MG PO HS, #30 TAB 11/13/18 Tolterodine Tartrate* (Tolterodine Tartrate*) 2 Mg Tablet, 4 MG PO QHS, #60 TAB 11/13/18 Famotidine (Heartburn Prevention) 20 Mg Tablet, 20 MG PO BID, TAB 11/13/18 Cholecalciferol* (Vitamin D3*) 1,000 Unit Tablet, 5000 UNIT PO DAILY, TAB 11/13/18 Ferrous Sulfate* (Ferrous Sulfate*) 325 Mg Tabec, 325 MG PO BID, TAB 11/13/18 Lorazepam* (Lorazepam*) 1 Mg Tablet, 1 MG PO Q12 PRN for ANXIETY, #60 TAB 11/13/18 Haloperidol* (Haldol*) 5 Mg Tab, 5 MG PO DAILY, TAB 11/13/18 Folic Acid* (Folic Acid*) 1 Mg Tablet, 1 MG PO DAILY, TAB 09/11/16 Atorvastatin Calcium* (Atorvastatin Calcium*) 20 Mg Tablet, 20 MG PO QHS, #30 T AB 09/11/16 Aspirin* (Aspirin* EC) 81 Mg Tablet.dr, 81 MG PO DAILY, TAB 09/11/16 Discontinued Scripts Ampicillin* (Ampicillin*) 500 Mg Cap, 500 MG PO Q8 for 5 Days, #15 CAP Prov:SHEILA LAYTON NP 08/06/18 Medications Current Medications Hydralazine HCl (Apresoline) 10 mg Q6H PRN IV ELEVATED BLOOD PRESSURE Last adm inistered on 11/14/18at 06:28; Admin Dose 10 MG; Start 11/12/18 at 07:30 Acetaminophen (Tylenol Tab) 650 mg Q6H PRN PO MILD PAIN(1-3)OR ELEVATED TEMP; Start 11/12/18 at 17:00 Ondansetron HCl (Zofran Inj) 4 mg Q6H PRN IV NAUSEA AND/OR VOMITING; Start 11/12/18 at 17:00 Pantoprazole (Protonix Tab) 40 mg DAILY@06 PO Last administered on 11/15/18at 06:38; Admin Dose 40 MG; Start 11/13/18 at 06:00 Aspirin (Aspirin) 81 mg DAILY PO Last administered on 11/15/18at 08:57; Admin Dose 81 MG; Start 11/13/18 at 09:00 Atorvastatin Calcium (Lipitor) 20 mg HS PO Last administered on 11/14/18at 21:12; Admin Dose 20 MG; Start 11/12/18 at 21:00 Insulin Aspart (Novolog Insulin Pen) NOVOLOG *MILD* ALGORITHM WITH MEALS BEDTIME SC Last administered on 11/14/18at 17:38; Admin Dose 1 UNIT; Start 11/12/18 at 18:00 Miscellaneous Information 1 ea NOTE XX ; Start 11/12/18 at 17:30 Glucose (Glutose) 15 gm Q15M PRN PO DECREASED GLUCOSE; Start 11/12/18 at 17:30 Glucose (Glutose) 22.5 gm Q15M PRN PO DECREASED GLUCOSE; Start 11/12/18 at 17:30 Dextrose (D50w Syringe) 25 ml Q15M PRN IV DECREASED GLUCOSE; Start 11/12/18 at 17:30 Dextrose (D50w Syringe) 50 ml Q15M PRN IV DECREASED GLUCOSE; Start 11/12/18 at 17:30 Glucagon (Glucagen) 1 mg Q15M PRN IM DECREASED GLUCOSE; Start 11/12/18 at 17:30 Glucose (Glutose) 15 gm Q15M PRN BUCCAL DECREASED GLUCOSE; Start 11/12/18 at 17:30 Amlodipine Besylate (Norvasc) 5 mg BID PO Last administered on 11/15/18at 08:57; Admin Dose 5 MG; Start 11/13/18 at 21:00 Memantine (Namenda) 5 mg QHS PO Last administered on 11/14/18at 21:12; Admin Dose 5 MG; Start 11/14/18 at 21:00 Tolterodine Tartrate (Detrol La) 4 mg QHS PO Last administered on 11/14/18at 21:12; Admin Dose 4 MG; Start 11/14/18 at 21:00 Metoprolol Tartrate (Lopressor) 25 mg BID PO Last administered on 11/15/18at 08:58; Admin Dose 25 MG; Start 11/14/18 at 21:00 Assessment/Plan Hospital Course (Demo Recall) 1. Positive troponin in the setting of possible syncope versus seizures without syncope. The patient may have been caused by acute coronary syndrome and if the seizures may have been the cause of the patient's positive troponin - stress test planned today. 2. Abnormal echocardiogram with nonspecific ST-T wave abnormalities, assess for acute coronary syndrome. NO CP now. 3. Possible syncope versus seizure - no tachy-bardy on tele now. 4. Hypertension - better, will monitor clinically. 5. Dyslipidemia. 6. Dementia- on meds. 7. Possible urinary incontinence - defer to primary team. BOBBY ZAMORANO MD November 15, 2018 09:58
[2018-11-15] MEDS ORDERED: REGADENOSON 0.4 MG/5 ML SYG ONE (11:20)
--- NOTE | 2018-11-15 14:00 | PN ---
GUYCHANTELL 11/15/18 1400: Date/Time of Note Date/Time of Note DATE: 11/15/18 TIME: 14:00 Assessment/Plan VTE [place] [facility] [place]: 5 [place] [facility] [place] SCD contraindicated: low risk/ambulating Pharmacological prophylaxis: NA/contraindicated Pharm contraindication: low risk/ambulating Lines/Catheters [facility] Saline Lock Urinary Cath still in place: No Assessment/Plan Hospital Course 1. blank stare/ stiff ext/near syncopy ? seizure vs cardiac; however, the patient never really passed out while the patient was in shower. CT of the head is negative. Could also just be gait instability. Patient had history of remote seizure disorder. CT of the head is negative for any acute stroke. 2 Elevated trop r/o ACS 2. Hypokalemia. 3. Diabetes. 4. Hypertension. 5. Hyperlipidemia. 6. 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 Spoke to the son, the patient is supposed to have followup with Dr. Gudino as an outpatient for new chemo regimen. 7 hematuria new onset 8 anxiety 9. Obesity Assessment/Plan - MRI neg -GI proph. Protonix Protonix DVT proph. - EEG pending -stress test today - renal US - Check UA - FU Neuro/cardiac rec Result Diagram: 11/14/18 0547 11/15/18 0451 Results 24hrs Laboratory Tests Test 11/14/18 17:16 11/14/18 21:08 11/15/18 01:09 11/15/18 04:51 Bedside Glucose 146 154 Creatine Kinase 136 134 Creatine Kinase 2.7 2.6 Index Creatinine Kinase MB 3.69 H 3.48 H (Mass) Troponin I 0.342 *H 0.319 *H Sodium Level 141 Potassium Level 3.6 Chloride Level 107 Carbon Dioxide Level 28 Anion Gap 6 Blood Urea Nitrogen 32 H Creatinine 0.98 Est Glomerular > 60 Filtrat Rate mL/min Glucose Level 121 Calcium Level 8.9 Test 11/15/18 08:56 11/15/18 13:04 Bedside Glucose 119 103 Subjective 24 Hr Interval Summary Constitutional: no complaints Exam/Review of Systems Exam Vitals Vital Signs Date Temp Pulse Resp B/P (MAP) Pulse Ox O2 O2 Flow FiO2 Time Delivery Rate 11/15/18 49 12:12 11/15/18 98.3 20 149/63 97 07:28 (91) 11/12/18 Room Air 16:00 11/12/18 2.0 14:14 Intake and Output 11/14/18 11/14/18 11/15/18 1515:00 23:00 07:00 IntakeIntake Total 400 ml 300 ml OutputOutput Total 350 ml 400 ml BalanceBalance 50 ml -100 ml Constitutional: alert, oriented Respiratory: clear to auscultation Cardiovascular: regular rate and rhythm Results Result Diagram: 11/14/18 0547 11/15/18 0451 Results 24hrs Laboratory Tests Test 11/14/18 17:16 11/14/18 21:08 11/15/18 01:09 11/15/18 04:51 Bedside Glucose 146 154 Creatine Kinase 136 134 Creatine Kinase 2.7 2.6 Index Creatinine Kinase MB 3.69 H 3.48 H (Mass) Troponin I 0.342 *H 0.319 *H Sodium Level 141 Potassium Level 3.6 Chloride Level 107 Carbon Dioxide Level 28 Anion Gap 6 Blood Urea Nitrogen 32 H Creatinine 0.98 Est Glomerular > 60 Filtrat Rate mL/min Glucose Level 121 Calcium Level 8.9 Test 11/15/18 08:56 11/15/18 13:04 Bedside Glucose 119 103 Medications Medication Current Medications Hydralazine HCl (Apresoline) 10 mg Q6H PRN IV ELEVATED BLOOD PRESSURE Last administered on 11/14/18at 06:28; Admin Dose 10 MG; Start 11/12/18 at 07:30 Acetaminophen (Tylenol Tab) 650 mg Q6H PRN PO MILD PAIN(1-3)OR ELEVATED TEMP; Start 11/12/18 at 17:00 Ondansetron HCl (Zofran Inj) 4 mg Q6H PRN IV NAUSEA AND/OR VOMITING; Start 11/12/18 at 17:00 Pantoprazole (Protonix Tab) 40 mg DAILY@06 PO Last administered on 11/15/18at 06:38; Admin Dose 40 MG; Start 11/13/18 at 06:00 Aspirin (Aspirin) 81 mg DAILY PO Last administered on 11/15/18at 08:57; Admin Dose 81 MG; Start 11/13/18 at 09:00 Atorvastatin Calcium (Lipitor) 20 mg HS PO Last administered on 11/14/18at 21:12; Admin Dose 20 MG; Start 11/12/18 at 21:00 Insulin Aspart (Novolog Insulin Pen) NOVOLOG *MILD* ALGORITHM WITH MEALS BEDTIME SC Last administered on 11/14/18at 17:38; Admin Dose 1 UNIT; Start 11/12/18 at 18:00 Miscellaneous Information 1 ea NOTE XX ; Start 11/12/18 at 17:30 Glucose (Glutose) 15 gm Q15M PRN PO DECREASED GLUCOSE; Start 11/12/18 at 17:30 Glucose (Glutose) 22.5 gm Q15M PRN PO DECREASED GLUCOSE; Start 11/12/18 at 17:30 Dextrose (D50w Syringe) 25 ml Q15M PRN IV DECREASED GLUCOSE; Start 11/12/18 at 17:30 Dextrose (D50w Syringe) 50 ml Q15M PRN IV DECREASED GLUCOSE; Start 11/12/18 at 17:30 Glucagon (Glucagen) 1 mg Q15M PRN IM DECREASED GLUCOSE; Start 11/12/18 at 17:30 Glucose (Glutose) 15 gm Q15M PRN BUCCAL DECREASED GLUCOSE; Start 11/12/18 at 17:30 Amlodipine Besylate (Norvasc) 5 mg BID PO Last administered on 11/15/18at 08:57; Admin Dose 5 MG; Start 11/13/18 at 21:00 Memantine (Namenda) 5 mg QHS PO Last administered on 11/14/18at 21:12; Admin Dose 5 MG; Start 11/14/18 at 21:00 Tolterodine Tartrate (Detrol La) 4 mg QHS PO Last administered on 11/14/18at 21:12; Admin Dose 4 MG; Start 11/14/18 at 21:00 Metoprolol Tartrate (Lopressor) 25 mg BID PO Last administered on 11/15/18at 08:58; Admin Dose 25 MG; Start 11/14/18 at 21:00 DARIO DUNN MD 11/15/18 1606: Assessment/Plan Assessment/Plan Assessment/Plan UTI> ADD ABX STRESS TEST PENDING HEMTURIA>UROLOGY Result Diagram: 11/14/18 0547 11/15/18 0451 CHANTELL TOVAR November 15, 2018 14:00 DARIO DUNN MD November 15, 2018 16:06
--- NOTE | 2018-11-15 16:17 | SP ---
DATE OF PROCEDURE: 11/15/2018 PROCEDURE: Lexiscan Cardiolite stress test. REFERRING PHYSICIAN: Bassam Cobian MD REASON FOR EVALUATION: Precordial chest pain. DESCRIPTION OF PROCEDURE: The patient was brought to heart station in fasting condition. He has fir st-degree AV block with heart rate in the 50s. He tolerated the injection well with blood pressure o f 148/75. The imaging portion of the report is dictated separately. Dictated By: BOBBY ZAMORANO MD ML/NTS Conf#: [id number] DID#: [id number] CC: SANTOS DRAPER; BASSAM COBIAN MD;*EndCC*
--- NOTE | 2018-11-15 16:18 | EEG ---
EEG NOTE Report Details DATE OF TEST: 11/15/18 HISTORY: The patient is a 68-year-old M who presents with a staring spell. This EEG is requested to evaluate for an epileptic disorder. SEDATION: None. CONDITIONS OF RECORDING: This EEG was recorded digitally on the [email or web address] machine, using the International 10-20 System of electrodes plus anterior temporals and [place]z. STATES SAMPLED: Wakefulness and drowsiness. FINDINGS: During wakefulness, there is an 8 Hz posterior dominant rhythm, which attenuates normally with eye opening. There is a normal [id number] frequency-amplitude gradient. The remainder of the awake background is normal. Photic stimulation does not elicit any definite driving responses or epileptif orm discharges. Hyperventilation was not performed. The patient became drowsy but did not pass into sleep. No asymmetries, focal abnormalities or epileptiform discharges were seen. IMPRESSION: Normal electroencephalogram during wakefulness and drowsiness. COMMENT: A normal EEG does not of itself rule out an epileptic disorder, especially if sleep is not captured, but may decrease the probability of one depending on clinical context. SANTOS DRAPER November 15, 2018 16:18
--- NOTE | 2018-11-15 17:01 | CONS ---
Assessment/Plan Assessment/Plan Hospital Course 68 yo M with hx of CVA, colon CA and other comorbidities who presents with a transient alteration in awareness... for which neurology is consulted. The clinical picture is consistent with syncope vs. seizure. MRI brain is without acute intracranial pathology. CUS is unrevealing. EEG is normal. P: Ok to defer AED therapy for now Ativan IV PRN seizure > 5 min or for cluster Await orthostatics [place] as necessary OK to continue Namenda per ops Other management per primary Will follow clinically to recommend neurologic studies, as necessary Consultation Date/Type/Reason Admit Date/Time November 14, 2018 at 08:53 Type of Consult Neurology Reason for Consultation Syncope vs seizure Requesting Provider: DAIRO DUNN MD Date/Time of Note DATE: 11/15/18 TIME: 17:00 24 HR Interval Summary Free Text/Dictation Continues acute care. Exam Vital Signs Vitals Vital Signs Date Temp Pulse Resp B/P (MAP) Pulse Ox O2 O2 Flow FiO2 Time Delivery Rate 11/15/18 67 16:08 11/15/18 98.3 20 171/77 98 15:28 (108) 11/12/18 Room Air 16:00 11/12/18 2.0 14:14 Intake and Output 11/14/18 11/14/18 11/15/18 1515:00 23:00 07:00 IntakeIntake Total 400 ml 300 ml OutputOutput Total 350 ml 400 ml BalanceBalance 50 ml -100 ml Exam PE: Gen Appearance: No Apparent Distress HEENT: Normocephalic Cardiovascular: Regular rate Lungs: Clear bilaterally Abdomen: Soft Extremities: Dry NE: The patient was asleep though easily arousable; disoriented. Language was normal. Fund of knowledge was limited. Pupils were equal and reactive to light. There was no afferent pupillary defect. Visual skaggs were normal. Funduscopic examination was limited. Extra-ocular movements were full. Ptosis was absent. There was no nystagmus. Facial sensation was normal. Face was symmetric with normal strength. Hearing was intact. Palate movements were normal. Neck strength was normal. There was normal tongue bulk and speed of movement. Tone was normal. Muscle bulk was normal. I did not see fasciculations. The pt was generally weak, mildly. Vibration sensation was normal. Temperature and pinprick sensation was normal. Rapid alternating movements were normal. There was no dysmetria. There was no intention tremor. Gait was deferred due to bedrest. Arm and leg reflexes were 2+ and symmetric. Garcia's sign was absent. Plantar responses were flexor. LUIS MENDOZA NP November 15, 2018 17:01
[2018-11-15] MEDS: CEFTRIAXONE 1 GM/50 ML (PMX) 50 ML IVPB SCH (17:19)
[2018-11-15] MEDS: hydrALAzine 20 MG INJ IV PRN (18:26)
[2018-11-15] MEDS ORDERED: LORAZEPAM 2 MG INJ IV PRN (20:30)
[2018-11-15] MEDS: ATORVASTATIN 20 MG TAB PO SCH (20:32)
[2018-11-15] MEDS: TOLTERODINE (SR) 4 MG CAP PO SCH (20:32)
[2018-11-15] MEDS: MEMANTINE 5 MG TAB PO SCH (20:32)
[2018-11-16] VITALS (14 sets, daily range): BP systolic 138–169; BP diastolic 63–76; PULSE 44–69; RESP 18–22
[2018-11-16] MEDS: PANTOPRAZOLE (EC) 40 MG TAB PO SCH (06:07)
[2018-11-16] MEDS: INSULIN ASPART [NOVOLOG] 3 ML PEN SC SCH ×4 (08:00→20:14)
[2018-11-16] MEDS: METOPROLOL 25 MG TAB PO SCH ×2 (08:15→20:12)
[2018-11-16] MEDS: ASPIRIN 81 MG TAB PO SCH (08:15)
[2018-11-16] MEDS: AMLODIPINE 5 MG TAB PO SCH ×2 (08:15→20:11)
--- NOTE | 2018-11-16 09:42 | CONS ---
Assessment/Plan Assessment/Plan Hospital Course 68 yo M with hx of CVA, colon CA and other comorbidities who presents with a transient alteration in awareness... for which neurology is consulted. The clinical picture is consistent with syncope vs. seizure. MRI brain is without acute intracranial pathology. CUS is unrevealing. EEG is normal. Orthostatics neg P: Ok to defer AED therapy for now Ativan IV PRN seizure > 5 min or for cluster [place] as necessary OK to continue Namenda per ops Other management per primary Will follow clinically to recommend neurologic studies, as necessary Consultation Date/Type/Reason Admit Date/Time November 14, 2018 at 08:53 Type of Consult Neurology Reason for Consultation Syncope vs seizure Requesting Provider: DARIO DUNN MD Date/Time of Note DATE: 11/16/18 TIME: 09:42 24 HR Interval Summary Free Text/Dictation Continues acute care. Exam Vital Signs Vitals Vital Signs Date Temp Pulse Resp B/P (MAP) Pulse Ox O2 O2 Flow FiO2 Time Delivery Rate 11/16/18 65 08:00 11/16/18 97.8 22 169/76 96 Room Air 07:39 (107) 11/12/18 2.0 14:14 Intake and Output 11/15/18 11/15/18 11/16/18 1515:00 23:00 07:00 IntakeIntake Total 600 ml 300 ml BalanceBalance 600 ml 300 ml Exam PE: Gen Appearance: No Apparent Distress HEENT: Normocephalic Cardiovascular: Regular rate Lungs: Clear bilaterally Abdomen: Soft Extremities: Dry NE: The patient was asleep though easily arousable; disoriented. Language was normal. Fund of knowledge was limited. Pupils were equal and reactive to light. There was no afferent pupillary defect. Visual skaggs were normal. Funduscopic examination was limited. Extra-ocular movements were full. Ptosis was absent. There was no nystagmus. Facial sensation was normal. Face was symmetric with normal strength. Hearing was intact. Palate movements were normal. Neck strength was normal. There was normal tongue bulk and speed of movement. Tone was normal. Muscle bulk was normal. I did not see fasciculations. The pt was generally weak, mildly. Vibration sensation was normal. Temperature and pinprick sensation was normal. Rapid alternating movements were normal. There was no dysmetria. There was no intention tremor. Gait was deferred due to bedrest. Arm and leg reflexes were 2+ and symmetric. Garcia's sign was absent. Plantar responses were flexor. LUIS MENDOZA NP November 16, 2018 09:42
--- NOTE | 2018-11-16 12:03 | PN ---
Date/Time of Note Date/Time of Note DATE: 11/16/18 TIME: 11:56 Assessment/Plan VTE Prophylaxis Risk score (from Ns)>0 risk: 5 [place] [facility] [place] contraindicated: low risk/ambulating Pharmacological prophylaxis: NA/contraindicated Pharm contraindication: low risk/ambulating Lines/Catheters IV Catheter Type (from [facility] Saline Lock Urinary Cath still in place: No Assessment/Plan Hospital Course 1. blank stare/ stiff ext/near syncopy ? seizure vs cardiac; however, the patient never really passed out while the patient was in shower. CT of the head is negative. Could also just be gait instability. Patient had history of re mote seizure disorder. CT of the head is negative for any acute stroke. 2 Elevated trop r/o ACS 2. Hypokalemia. 3. Diabetes. 4. Hypertension. 5. Hyperlipidemia. 6. 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 Spoke to the son, the patient is supposed to have followup with Dr. Gudino as an outpatient for new chemo regimen. 7 hematuria new onset 8 anxiety 9. Obesity 10. enlarged prostate Assessment/Plan - MRI neg -GI proph. Protonix - DVT proph. amb or SCD while in bed - EEG: Normal electroencephalogram during wakefulness and drowsiness. -stress test revealed:The type and distribution of the scintigraphic abnormalities are most consistent with a small reversible perfusion defect in the inferior wall. Mild hypokinesis of the left ventricle. The left ventricle ejection fraction at stress is 45%. - renal US; No evidence renal calculi or obstructive uropathy. Partially distended bladder with questionable abnormal wall thickening. Consider reevaluation when bladder is distended Enlarged prostate - UA has 2 RBC c/s: PROTEUS MIRABILIS with COLONY COUNT >100,000 CFU/ml - called dr Pham for hematuria and bladder wall thickenig -FU Neuro/cardiac rec Result Diagram: 11/16/18 0505 11/16/18 0505 Results 24hrs Laboratory Tests Test 11/15/18 13:04 11/15/18 17:18 11/15/18 20:31 11/16/18 05:05 Bedside Glucose 103 151 134 White Blood Count 9.3 Red Blood Count 4.49 L Hemoglobin 12.9 L Hematocrit 39.3 L Mean Corpuscular 87.5 Volume Mean Corpuscular 28.7 L Hemoglobin Mean Corpuscular 32.8 Hemoglobin Concent Red Cell 14.7 H Distribution Width Platelet Count 217 Mean Platelet Volume 11.2 H Immature 0.300 Granulocytes % Neutrophils % 69.5 Lymphocytes % 17.5 Monocytes % 7.6 Eosinophils % 4.5 Basophils % 0.6 Nucleated Red Blood 0.0 Cells % Immature 0.030 Granulocytes # Neutrophils # 6.5 Lymphocytes # 1.6 Monocytes # 0.7 Eosinophils # 0.4 Basophils # 0.1 Nucleated Red Blood 0.0 Cells # Sodium Level 142 Potassium Level 3.4 L Chloride Level 109 Carbon Dioxide Level 27 Anion Gap 6 Blood Urea Nitrogen 32 H Creatinine 0.89 Est Glomerular > 60 Filtrat Rate mL/min Glucose Level 123 Calcium Level 8.9 Test 11/16/18 07:44 Bedside Glucose 98 Subjective 24 Hr Interval Summary Constitutional: no complaints, improved Exam/Review of Systems Exam Vitals Vital Signs Date Temp Pulse Resp B/P (MAP) Pulse Ox O2 O2 Flow FiO2 Time Delivery Rate 11/16/18 65 08:00 11/16/18 97.8 22 169/76 96 Room Air 07:39 (107) 11/12/18 2.0 14:14 Intake and Output 11/15/18 11/15/18 11/16/18 1515:00 23:00 07:00 IntakeIntake Total 600 ml 300 ml BalanceBalance 600 ml 300 ml Constitutional: alert, oriented ENMT: nl external ears & nose Neck: supple Respiratory: clear to auscultation Cardiovascular: regular rate and rhythm Gastrointestinal: soft Genitourinary - Male: CVA tenderness; No nl penis, No nl scrotum, No discharge, No other Results Results 24hrs Laboratory Tests Test 11/15/18 13:04 11/15/18 17:18 11/15/18 20:31 11/16/18 05:05 Bedside Glucose 103 151 134 White Blood Count 9.3 Red Blood Count 4.49 L Hemoglobin 12.9 L Hematocrit 39.3 L Mean Corpuscular 87.5 Volume Mean Corpuscular 28.7 L Hemoglobin Mean Corpuscular 32.8 Hemoglobin Concent Red Cell 14.7 H Distribution Width Platelet Count 217 Mean Platelet Volume 11.2 H Immature 0.300 Granulocytes % Neutrophils % 69.5 Lymphocytes % 17.5 Monocytes % 7.6 Eosinophils % 4.5 Basophils % 0.6 Nucleated Red Blood 0.0 Cells % Immature 0.030 Granulocytes # Neutrophils # 6.5 Lymphocytes # 1.6 Monocytes # 0.7 Eosinophils # 0.4 Basophils # 0.1 Nucleated Red Blood 0.0 Cells # Sodium Level 142 Potassium Level 3.4 L Chloride Level 109 Carbon Dioxide Level 27 Anion Gap 6 Blood Urea Nitrogen 32 H Creatinine 0.89 Est Glomerular > 60 Filtrat Rate mL/min Glucose Level 123 Calcium Level 8.9 Test 11/16/18 07:44 Bedside Glucose 98 Medications Medication Current Medications Hydralazine HCl (Apresoline) 10 mg Q6H PRN IV ELEVATED BLOOD PRESSURE Last administered on 11/15/18at 18:26; Admin Dose 10 MG; Start 11/12/18 at 07:30 Acetaminophen (Tylenol Tab) 650 mg Q6H PRN PO MILD PAIN(1-3)OR ELEVATED TEMP; Start 11/12/18 at 17:00 Ondansetron HCl (Zofran Inj) 4 mg Q6H PRN IV NAUSEA AND/OR VOMITING; Start 11/12/18 at 17:00 Pantoprazole (Protonix Tab) 40 mg DAILY@06 PO Last administered on 11/16/18at 06:07; Admin Dose 40 MG; Start 11/13/18 at 06:00 Aspirin (Aspirin) 81 mg DAILY PO Last administered on 11/16/18at 08:15; Admin Dose 81 MG; Start 11/13/18 at 09:00 Atorvastatin Calcium (Lipitor) 20 mg HS PO Last administered on 11/15/18at 20:32; Admin Dose 20 MG; Start 11/12/18 at 21:00 Insulin Aspart (Novolog Insulin Pen) NOVOLOG *MILD* ALGORITHM WITH MEALS BEDTIME SC Last administered on 11/15/18at 18:04; Admin Dose 1 UNIT; Start 11/12/18 at 18:00 Miscellaneous Information 1 ea NOTE XX ; Start 11/12/18 at 17:30 Glucose (Glutose) 15 gm Q15M PRN PO DECREASED GLUCOSE; Start 11/12/18 at 17:30 Glucose (Glutose) 22.5 gm Q15M PRN PO DECREASED GLUCOSE; Start 11/12/18 at 17:30 Dextrose (D50w Syringe) 25 ml Q15M PRN IV DECREASED GLUCOSE; Start 11/12/18 at 17:30 Dextrose (D50w Syringe) 50 ml Q15M PRN IV DECREASED GLUCOSE; Start 11/12/18 at 17:30 Glucagon (Glucagen) 1 mg Q15M PRN IM DECREASED GLUCOSE; Start 11/12/18 at 17:30 Glucose (Glutose) 15 gm Q15M PRN BUCCAL DECREASED GLUCOSE; Start 11/12/18 at 17:30 Amlodipine Besylate (Norvasc) 5 mg BID PO Last administered on 11/16/18at 08:15; Admin Dose 5 MG; Start 11/13/18 at 21:00 Memantine (Namenda) 5 mg QHS PO Last administered on 11/15/18 20:32; Admin Dose 5 MG; Start 11/14/18 at 21:00 Tolterodine Tartrate (Detrol La) 4 mg QHS PO Last administered on 11/15/18at 20:32; Admin Dose 4 MG; Start 11/14/18 at 21:00 Metoprolol Tartrate (Lopressor) 25 mg BID PO Last administered on 11/16/18at 08:15; Admin Dose 25 MG; Start 11/14/18 at 21:00 Ceftriaxone Sodium 50 ml @ 100 mls/hr Q24H IVPB Last administered on 11/15/18 17:19; Admin Dose 100 MLS/HR; Start 11/15/18 at 16:30 Lorazepam (Ativan) 1 mg Q6H PRN IV AGITATION/ANXIETY Last administered on 11/15/18 21:19; Admin Dose 1 MG; Start 11/15/18 at 20:30 CHANTELL TOVAR November 16, 2018 12:03
--- NOTE | 2018-11-16 13:30 | CONS ---
Consult Date/Type/Reason Admit Date/Time November 14, 2018 at 08:53 Initial Consult Date Requesting Provider: DARIO DUNN MD Date/Time of Note DATE: 11/16/18 TIME: 13:27 Subjective NO acute events - pt comfortable - Stress test done EF 45%, small inf rev defect reasonable to treat medically now, ROS: No fever, no chills, no nausea, no vomiting, no diarrhea/constipation No recent weight changes No chest pain, no PND, no orthopnea - mild SOB No dizziness, blurred vision No thirst, no heat or cold intolerance Objective Vitals Vital Signs Date Temp Pulse Resp B/P (MAP) Pulse Ox O2 O2 Flow FiO2 Time Delivery Rate 11/16/18 57 12:00 11/16/18 97.6 21 150/68 96 Room Air 11:55 (95) 11/12/18 2.0 14:14 Intake and Output 11/15/18 11/15/18 11/16/18 1515:00 23:00 07:00 IntakeIntake Total 600 ml 300 ml BalanceBalance 600 ml 300 ml Exam General: WN/WD/NAD, AOx 2-3 HEENT: Unicetric/atraumatic/EOMI ( follows commands) NECK: JVD elevated, no thyromegaly Lymph: no lymphadenopathy HEART: regular with no S3, II/ systolic murmur at apex, mild SOB LUNGS: Coarse sounds ABD: soft, NT, ND, +BS : Intact Neuro: non focal SKIN: chronic changes EXT: trace edema Results/Medications Result Diagram: 11/16/18 0505 11/16/18 0505 Results 24 hrs Laboratory Tests Test 11/15/18 17:18 11/15/18 20:31 11/16/18 05:05 11/16/18 07:44 Bedside Glucose 151 134 98 White Blood Count 9.3 Red Blood Count 4.49 L Hemoglobin 12.9 L Hematocrit 39.3 L Mean Corpuscular 87.5 Volume Mean Corpuscular 28.7 L Hemoglobin Mean Corpuscular 32.8 Hemoglobin Concent Red Cell 14.7 H Distribution Width Platelet Count 217 Mean Platelet Volume 11.2 H Immature 0.300 Granulocytes % Neutrophils % 69.5 Lymphocytes % 17.5 Monocytes % 7.6 Eosinophils % 4.5 Basophils % 0.6 Nucleated Red Blood 0.0 Cells % Immature 0.030 Granulocytes # Neutrophils # 6.5 Lymphocytes # 1.6 Monocytes # 0.7 Eosinophils # 0.4 Basophils # 0.1 Nucleated Red Blood 0.0 Cells # Sodium Level 142 Potassium Level 3.4 L Chloride Level 109 Carbon Dioxide Level 27 Anion Gap 6 Blood Urea Nitrogen 32 H Creatinine 0.89 Est Glomerular > 60 Filtrat Rate mL/min Glucose Level 123 Calcium Level 8.9 Test 11/16/18 12:15 Bedside Glucose 142 Home Meds Active Scripts Loperamide Hcl* (Imodium*) 2 Mg Capsule, 2 MG PO .AFTER EA LOOSE BM PRN for DIARRHEA, #10 TAB Prov:JENNIFER MANRIQUE MD 07/13/18 Ondansetron (Ondansetron Odt) 4 Mg Tab.rapdis, 4 MG PO Q6H PRN for NAUSEA AND/OR VOMITING, #10 TAB Prov:JENNIFER MANRIQUE MD 07/13/18 Reported Medications Oxybutynin Chloride* (Oxybutynin Chloride*) 5 Mg/5 Ml Syrup, 5 MG PO BID, ML 11/13/18 Memantine* (Namenda*) 5 Mg Tablet, 5 MG PO QHS, #30 TAB 11/13/18 Quetiapine Fumarate* (Seroquel*) 100 Mg Tablet, 100 MG PO HS, #30 TAB 11/13/18 Tolterodine Tartrate* (Tolterodine Tartrate*) 2 Mg Tablet, 4 MG PO QHS, #60 TAB 11/13/18 Famotidine (Heartburn Prevention) 20 Mg Tablet, 20 MG PO BID, TAB 11/13/18 Cholecalciferol* (Vitamin D3*) 1,000 Unit Tablet, 5000 UNIT PO DAILY, TAB 11/13/18 Ferrous Sulfate* (Ferrous Sulfate*) 325 Mg Tabec, 325 MG PO BID, TAB 11/13/18 Lorazepam* (Lorazepam*) 1 Mg Tablet, 1 MG PO Q12 PRN for ANXIETY, #60 TAB 11/13/18 Haloperidol* (Haldol*) 5 Mg Tab, 5 MG PO DAILY, TAB 11/13/18 Folic Acid* (Folic Acid*) 1 Mg Tablet, 1 MG PO DAILY, TAB 09/11/16 Atorvastatin Calcium* (Atorvastatin Calcium*) 20 Mg Tablet, 20 MG PO QHS, #30 TAB 09/11/16 Aspirin* (Aspirin* EC) 81 Mg Tablet.dr, 81 MG PO DAILY, TAB 09/11/16 Discontinued Scripts Ampicillin* (Ampicillin*) 500 Mg Cap, 500 MG PO Q8 for 5 Days, #15 CAP Prov:SHEILA LAYTON V. CREDIT ADJUSTER 08/06/18 Medications Current Medications Hydralazine HCl (Apresoline) 10 mg Q6H PRN IV ELEVATED BLOOD PRESSURE Last administered on 11/15/18at 18:26; Admin Dose 10 MG; Start 11/12/18 at 07:30 Acetaminophen (Tylenol Tab) 650 mg Q6H PRN PO MILD PAIN(1-3)OR ELEVATED TEMP; Start 11/12/18 at 17:00 Ondansetron HCl (Zofran Inj) 4 mg Q6H PRN IV NAUSEA AND/OR VOMITING; Start 11/12/18 at 17:00 Pantoprazole (Protonix Tab) 40 mg DAILY@06 PO Last administered on 11/16/18at 06:07; Admin Dose 40 MG; Start 11/13/18 at 06:00 Aspirin (Aspirin) 81 mg DAILY PO Last administered on 11/16/18at 08:15; Admin Dose 81 MG; Start 11/13/18 at 09:00 Atorvastatin Calcium (Lipitor) 20 mg HS PO Last administered on 11/15/18at 20:32; Admin Dose 20 MG; Start 11/12/18 at 21:00 Insulin Aspart (Novolog Insulin Pen) NOVOLOG *MILD* ALGORITHM WITH MEALS BEDTIME SC Last administered on 11/16/18at 12:17; Admin Dose 1 UNIT; Start 11/12/18 at 18:00 Miscellaneous Information 1 ea NOTE XX ; Start 11/12/18 at 17:30 Glucose (Glutose) 15 gm Q15M PRN PO DECREASED GLUCOSE; Start 11/12/18 at 17:30 Glucose (Glutose) 22.5 gm Q15M PRN PO DECREASED GLUCOSE; Start 11/12/18 at 17:30 Dextrose (D50w Syringe) 25 ml Q15M PRN IV DECREASED GLUCOSE; Start 11/12/18 at 17:30 Dextrose (D50w Syringe) 50 ml Q15M PRN IV DECREASED GLUCOSE; Start 11/12/18 at 17:30 Glucagon (Glucagen) 1 mg Q15M PRN IM DECREASED GLUCOSE; Start 11/12/18 at 17:30 Glucose (Glutose) 15 gm Q15M PRN BUCCAL DECREASED GLUCOSE; Start 11/12/18 at 17:30 Amlodipine Besylate (Norvasc) 5 mg BID PO Last administered on 11/16/18 08:15; Admin Dose 5 MG; Start 11/13/18 at 21:00 Memantine (Namenda) 5 mg QHS PO Last administered on 11/15/18 20:32; Admin Dose 5 MG; Start 11/14/18 at 21:00 Tolterodine Tartrate (Detrol La) 4 mg QHS PO Last administered on 11/15/18 20:32; Admin Dose 4 MG; Start 11/14/18 at 21:00 Metoprolol Tartrate (Lopressor) 25 mg BID PO Last administered on 11/16/18 08:15; Admin Dose 25 MG; Start 11/14/18 at 21:00 Ceftriaxone Sodium 50 ml @ 100 mls/hr Q24H IVPB Last administered on 11/15/18 17:19; Admin Dose 100 MLS/HR; Start 11/15/18 at 16:30 Lorazepam (Ativan) 1 mg Q6H PRN IV AGITATION/ANXIETY Last administered on 11/15/18 21:19; Admin Dose 1 MG; Start 11/15/18 at 20:30 Assessment/Plan Hospital Course (Demo Recall) 1. Positive troponin in the setting of possible syncope versus seizures without syncope. The patient may have been caused by acute coronary syndrome and if the seizures may have been the cause of the patient's positive troponin - stress test done - EF 45%, small defect - med Rx reasonable unless Class III Sx. 2. Abnormal echocardiogram with nonspecific ST-T wave abnormalities, assess for acute coronary syndrome. NO CP now. Treated. 3. Possible syncope versus seizure - no tachy-bardy on tele now. NO new episodes now. 4. Hypertension - better, will monitor clinically. BP better overall. 5. Dyslipidemia. 6. Dementia- on meds. 7. Possible urinary incontinence - defer to primary team. BOBBY ZAMORANO MD November 16, 2018 13:30
[2018-11-16] MEDS ORDERED: POTASSIUM CHLORIDE (SR) 20 MEQ TAB PO STA (15:00)
[2018-11-16] MEDS: CEFTRIAXONE 1 GM/50 ML (PMX) 50 ML IVPB SCH (15:39)
[2018-11-16] MEDS: LOSARTAN 25 MG TAB PO SCH ×2 (15:39→23:02)
[2018-11-16] MEDS: TOLTERODINE (SR) 4 MG CAP PO SCH (20:10)
[2018-11-16] MEDS: MEMANTINE 5 MG TAB PO SCH (20:11)
[2018-11-16] MEDS: ATORVASTATIN 20 MG TAB PO SCH (20:12)
[2018-11-17] VITALS (9 sets, daily range): BP systolic 144–156; BP diastolic 64–72; PULSE 51–64; RESP 20–22
[2018-11-17] MEDS: PANTOPRAZOLE (EC) 40 MG TAB PO SCH (05:58)
[2018-11-17] MEDS: INSULIN ASPART [NOVOLOG] 3 ML PEN SC SCH ×2 (08:00→12:00)
[2018-11-17] MEDS: AMLODIPINE 5 MG TAB PO SCH (08:11)
[2018-11-17] MEDS: METOPROLOL 25 MG TAB PO SCH (08:12)
[2018-11-17] MEDS: ASPIRIN 81 MG TAB PO SCH (08:12)
[2018-11-17] MEDS: LOSARTAN 25 MG TAB PO SCH (08:12)
--- NOTE | 2018-11-17 11:13 | CONS ---
Assessment/Plan Assessment/Plan Hospital Course 68 yo M with hx of CVA, colon CA and other comorbidities who presents with a transient alteration in awareness... for which neurology is consulted. The clinical picture is consistent with syncope vs. seizure. MRI brain is without acute intracranial pathology. CUS is unrevealing. EEG is normal. Orthostatics neg P: Ok to defer AED therapy for now Ativan IV PRN seizure > 5 min or for cluster Lima as necessary OK to continue Namenda per ops Other management per primary Will follow clinically to recommend neurologic studies, as necessary Consultation Date/Type/Reason Admit Date/Time November 14, 2018 at 08:53 Type of Consult Neurology Reason for Consultation Syncope vs seizure Requesting Provider: DARIO DUNN MD Date/Time of Note DATE: 11/17/18 TIME: 11:12 24 HR Interval Summary Free Text/Dictation Continues acute care. Exam Vital Signs Vitals Vital Signs Date Temp Pulse Resp B/P (MAP) Pulse Ox O2 O2 Flow FiO2 Time Delivery Rate 11/17/18 64 08:00 11/17/18 98.0 22 144/67 96 Room Air 07:39 (92) Intake and Output 11/16/18 11/16/18 11/17/18 1515:00 23:00 07:00 IntakeIntake Total 1250 ml 500 ml OutputOutput Total 650 ml BalanceBalance 1250 ml -150 ml Exam PE: Gen Appearance: No Apparent Distress HEENT: Normocephalic Cardiovascular: Regular rate Lungs: Clear bilaterally Abdomen: Soft Extremities: Dry NE: The patient was asleep though easily arousable; disoriented. Language was normal. Fund of knowledge was limited. Pupils were equal and reactive to light. There was no afferent pupillary defect. Visual skaggs were normal. Funduscopic examination was limited. Extra-ocular movements were full. Ptosis was absent. There was no nystagmus. Facial sensation was normal. Face was symmetric with normal strength. Hearing was intact. Palate movements were normal. Neck strength was normal. There was normal tongue bulk and speed of movement. Tone was normal. Muscle bulk was normal. I did not see fasciculations. The pt was generally weak, mildly. Vibration sensation was normal. Temperature and pinprick sensation was normal. Rapid alternating movements were normal. There was no dysmetria. There was no intention tremor. Gait was deferred due to bedrest. Arm and leg reflexes were 2+ and symmetric. Garcia's sign was absent. Plantar responses were flexor. LUIS MENDOZA NP November 17, 2018 11:12
--- NOTE | 2018-11-17 12:07 | PN ---
Date/Time of Note Date/Time of Note DATE: 11/17/18 TIME: 12:05 Assessment/Plan VTE Prophylaxis Risk score (from Ns)>0 risk: 5 SCD applied (from [facility] [place], [place]): No SCD contraindicated: low risk/ambulating Pharmacological prophylaxis: NA/contraindicated Pharm contraindication: low risk/ambulating Lines/Catheters [facility]from [facility] Saline Lock Urinary Cath still in place: No Assessment/Plan Hospital Course 1. blank stare/ stiff ext/near syncopy ? seizure vs cardiac; however, the patient never really passed out while the patient was in shower. CT of the head is negative. Could also just be gait instability. Patient had history of re mote seizure disorder. CT of the head is negative for any acute stroke. 2 Elevated trop r/o ACS 2. Hypokalemia. 3. Diabetes. 4. Hypertension. 5. Hyperlipidemia. 6. 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 Spoke to the son, the patient is supposed to have followup with Dr. Gudino as an outpatient for new chemo regimen. 7 hematuria new onset 8 anxiety 9. Obesity 10. enlarged prostate Assessment/Plan - MRI neg -start tamsulosin bradycardic -GI proph. Protonix - DVT proph. amb or SCD while in bed - EEG: Normal electroencephalogram during wakefulness and drowsiness. -stress test revealed: The type and distribution of the scintigraphic abn ormalities are most consistent with a small reversible perfusion defect in the inferior wall. Mild hypokinesis of the left ventricle. The left ventricle ejection fraction at stress is 45%. - renal US: No evidence renal calculi or obstructive uropathy. Partially distended bladder with questionable abnormal wall thickening. Consider reevaluation when bladder is distended Enlarged prostate - UA has 2 RBC c/s: PROTEUS MIRABILIS with COLONY COUNT >100,000 CFU/ml - called dr Pham yesterday for hematuria and bladder wall thickening -FU Neuro/cardiac rec Result Diagram: 11/16/18 0505 11/16/18 0505 Results 24hrs Laboratory Tests Test 11/16/18 12:15 11/16/18 17:26 11/16/18 20:13 11/17/18 08:10 Bedside Glucose 142 136 127 120 Test 11/17/18 11:31 Bedside Glucose 137 Subjective 24 Hr Interval Summary Constitutional: no complaints, improved Exam/Review of Systems Exam Vitals Vital Signs Date Temp Pulse Resp B/P (MAP) Pulse Ox O2 O2 Flow FiO2 Time Delivery Rate 11/17/18 97.8 52 20 144/64 96 Room Air 11:37 (90) Intake and Output 11/16/18 11/16/18 11/17/18 1414:59 22:59 06:59 IntakeIntake Total 1250 ml 500 ml OutputOutput Total 650 ml BalanceBalance 1250 ml -150 ml Constitutional: alert, oriented ENMT: nl external ears & nose Respiratory: clear to auscultation Cardiovascular: regular rate and rhythm Gastrointestinal: soft Genitourinary - Male: CVA tenderness; No nl penis, No nl scrotum, No discharge, No other Musculoskeletal: muscle weakness Skin: other (lower extremities skin discoiloration) Results Results 24hrs Laboratory Tests Test 11/16/18 12:15 11/16/18 17:26 11/16/18 20:13 11/17/18 08:10 Bedside Glucose 142 136 127 120 Test 11/17/18 11:31 Bedside Glucose 137 Medications Medication Current Medications Hydralazine HCl (Apresoline) 10 mg Q6H PRN IV ELEVATED BLOOD PRESSURE Last administered on 11/15/18at 18:26; Admin Dose 10 MG; Start 11/12/18 at 07:30 Acetaminophen (Tylenol Tab) 650 mg Q6H PRN PO MILD PAIN(1-3)OR ELEVATED TEMP; Start 11/12/18 at 17:00 Ondansetron HCl (Zofran Inj) 4 mg Q6H PRN IV NAUSEA AND/OR VOMITING; Start 11/12/18 at 17:00 Pantoprazole (Protonix Tab) 40 mg DAILY@06 PO Last administered on 11/17/18at 05:58; Admin Dose 40 MG; Start 11/13/18 at 06:00 Aspirin (Aspirin) 81 mg DAILY PO Last administered on 11/17/18at 08:12; Admin Dose 81 MG; Start 11/13/18 at 09:00 Atorvastatin Calcium (Lipitor) 20 mg HS PO Last administered on 11/16/18at 20:12; Admin Dose 20 MG; Start 11/12/18 at 21:00 Insulin Aspart (Novolog Insulin Pen) NOVOLOG *MILD* ALGORITHM WITH MEALS BEDTIME SC Last administered on 11/16/18at 12:17; Admin Dose 1 UNIT; Start 11/12/18 at 18:00 Miscellaneous Information 1 ea NOTE XX ; Start 11/12/18 at 17:30 Glucose (Glutose) 15 gm Q15M PRN PO DECREASED GLUCOSE; Start 11/12/18 at 17:30 Glucose (Glutose) 22.5 gm Q15M PRN PO DECREASED GLUCOSE; Start 11/12/18 at 17:30 Dextrose (D50w Syringe) 25 ml Q15M PRN IV DECREASED GLUCOSE; Start 11/12/18 at 17:30 Dextrose (D50w Syringe) 50 ml Q15M PRN IV DECREASED GLUCOSE; Start 11/12/18 at 17:30 Glucagon (Glucagen) 1 mg Q15M PRN IM DECREASED GLUCOSE; Start 11/12/18 at 17:30 Glucose (Glutose) 15 gm Q15M PRN BUCCAL DECREASED GLUCOSE; Start 11/12/18 at 17:30 Amlodipine Besylate (Norvasc) 5 mg BID PO Last administered on 11/17/18at 08:11; Admin Dose 5 MG; Start 11/13/18 at 21:00 Memantine (Namenda) 5 mg QHS PO Last administered on 11/16/18at 20:11; Admin Dose 5 MG; Start 11/14/18 at 21:00 Tolterodine Tartrate (Detrol La) 4 mg QHS PO Last administered on 11/16/18at 20:10; Admin Dose 4 MG; Start 11/14/18 at 21:00 Metoprolol Tartrate (Lopressor) 25 mg BID PO Last administered on 11/17/18at 08:12; Admin Dose 25 MG; Start 11/14/18 at 21:00 Lorazepam (Ativan) 1 mg Q6H PRN IV AGITATION/ANXIETY Last administered on 04/26at 21:19; Admin Dose 1 MG; Start 11/15/18 at 20:30 Losartan Potassium (Cozaar) 25 mg BID PO Last administered on 11/17/18at 08:12; Admin Dose 25 MG; Start 11/16/18 at 13:30 Amoxicillin/ Clavulanate Potassium (Augmentin) 500 mg BID PO ; Start 11/17/18 at 21:00; Stop 11/22/18 at 20:59 CHANTELL TOVAR November 17, 2018 12:07
--- NOTE | 2018-11-17 12:11 | CONS ---
DATE OF ADMISSION: 11/14/2018 DATE OF CONSULTATION: Urology coverage for Dr. Campo. Thank you very much for requesting a urologic consultation on Jarad, a 68-year-old male who was admit karla secondary to syncope. Patient has a history of a stroke. Patient was noted to have microscopic hematuria and thus a urologic consultation has been requested. Patient and state there has been no gross hematuria. He is on Detrol with good urinary control. Patient denies any history of glauc alejandra. PAST MEDICAL HISTORY: Colon cancer, urinary retention, BPH, seizure disorder. ALLERGIES: NONE. HOME MEDICATIONS: 1. Zofran. 2. Haldol 3. Lorazepam. 4. Iron. 5. Oxybutynin. INPATIENT MEDICATIONS: Detrol LA 4 mg p.o. every day, ceftriaxone, insulin. PHYSICAL EXAMINATION: VITAL SIGNS: Blood pressure 144/67, heart rate 64, respiration rate 22, temperature 98.0. ABDOMEN: Soft, nondistended, nontender, no palpable masses. FLANK: No CVA tenderness, no masses. GENITALIA: Normal shaft of penis, meatus, scrotum testicles and epididymis. RECTAL: Deferred. Urine culture positive Proteus, urinalysis, 2 RBCs, +2 glucose +3 protein. White blood count 9.3, hem oglobin 12.9. Renal ultrasound, no hydronephrosis with a decompressed bladder. IMPRESSION: Urinary tract infection, microscopic hematuria, glucosuria. PLAN: Check BMP, Augmentin 500 mg p.o. b.i.d. x5 days' time. If normal renal function would then link ggest CT urogram and further evaluation of microscopic hematuria and urinary tract infection. Check postvoid residual, discontinue ceftriaxone if not indicated for nonurologic issues. Dr. Campo to f ollow up in the morning time. Please reconsult as needed. Dictated By: AMRIK RODRIGUEZ MD EGR/NTS Conf#: [id number] DID#: [id number] CC: RON COBIAN MD; SUSAN CAMPO MD;*EndCC*
--- NOTE | 2018-11-17 12:42 | PDOCDIS ---
Discharge Instructions CONDITION [id number] Patient Condition: [id number] Stable ACTIVITY: [id number] Activity Restrictions: [id number] Slowly Increase Activity Rest between Activity Avoid heavy lifting FOLLOW UP/APPOINTMENTS Follow-up Plan PCP 1 week use walker SCHOOL/WORK RELEASE May return to School/Work with: With Restrictions CHANTELL TOVAR November 17, 2018 12:42
--- NOTE | 2018-11-17 12:42 | DS ---
Date/Time of Note Date/Time of Note DATE: 11/17/18 TIME: 12:41 Discharge Summary Admission/Discharge Info Admit Date/Time November 14, 2018 at 08:53 Discharge Date/Time Discharge Diagnosis elevated troponin r/o ACS Patient Condition: Stable Consults neurology, Dr Zuleta, Dr Kolb, cardiology Procedures echocardiogram Hospital Course This is a 68-year-old male with a past medical history of colon cancer with recurrent adenocarcinoma of the rectum and history of CVA with some mild right leg weakness, hypertension, dyslipidemia, questionable remote seizure disorder, presented to the Emergency Department after being brought by paramedics. According to the , patient went to the bathroom in the morning. His noted that he was taking more time than usual. She went inside and saw him that he was grabbing the side rails and he was standing. However, the patient was completely awake, alert, conscious. The patient was very weak. She thought that he is going to sway on the side. He called paramedics and paramedics saw him, and they brought him to the hospital for further evaluation. On admission, temperature was 98.3. PHYSICAL EXAMINATION: VITALS: Blood pressure 201/94, respiratory rate was 18. Labs showed white count 9.1, hemoglobin 15.7, platelet count 249. Troponin 0.100. BUN of 23, creatinine 1.02. INR of 0.85. UA slightly cloudy, 2+ glucose, 3+ protein. Patient had a CT of the brain that showed moderate diffuse atrophy, old right posterior cerebral artery distribution infarct, old left basal ganglia infarct. PAST MEDICAL HISTORY: 1. History of colon cancer in the past with recurrent adenocarcinoma of the rectum. 2. History of urinary retention. 3. History of cerebrovascular accident. 4. Hypertension. 5. Hyperlipidemia. 6. History of remote seizure disorder. During hospitalization pt was seen by neurology MD.MRI brain revealed: Stable moderate chronic microvascular white matter ischemic disease. Moderate genera lized parenchymal volume loss. EEG was done, normal. Pt was on fall precaution. Troponin was drawn, It was elevated with eventual decreasing it down . Dr Kolb was called and we kept pt on telemetry service. No ST changes was seen. The patient is status post 2D echo revealing a preserved EF. -Pt stress test revealed: The type and distribution of the scintigraphic abnormalities are most consistent with a small reversible perfusion defect in the inferior wall. Mild hypokinesis of the left ventricle. The left ventricle ejection fraction at stress is 45%. Renal USshowed : No evidence renal calculi or obstructive uropathy. Partially distended bladder with questionable abnormal wall thickening. Consider reevaluation when bladder is distended. Enlarged prostate. UA has 2 RBC c/s: PROTEUS MIRABILIS with COLONY COUNT >100,000 CFU/ml. Pt was on Amoxicillin TID and dr Pham was called for hematuria and bladder wall thickening. Unfortunately he did not consulted the pt. Pt was started on Tamsulosin with recommendation to see urology in 2 weeks and cardiology 2 weeks. Pt has an appointment with oncology for treatment. dx: 1. blank stare/ stiff ext/near syncopy ? seizure vs cardiac; however, the patient never really passed out while the patient was in shower. CT of the head is negative. Could also just be gait instability. Patient had history of remote seizure disorder. CT of the head is negative for any acute stroke. 2 Elevated trop r/o ACS 2. Hypokalemia. 3. Diabetes. 4. Hypertension. 5. Hyperlipidemia. 6. 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 Spoke to the son, the patient is supposed to have followup with Dr. Gudino as an outpatient for new chemo regimen. 7 hematuria new onset 8 anxiety 9. Obesity 10. enlarged prostate Home Meds Active Scripts Metoprolol Tartrate* (Lopressor*) 25 Mg Tab, 25 MG PO BID for 30 Days, TAB Prov:CHANTELL TOVAR 11/17/18 Losartan Potassium* (Cozaar*) 25 Mg Tablet, 25 MG PO BID for 30 Days, TAB Prov:CHANTELL TOVAR 11/17/18 Amlodipine Besylate* (Amlodipine Besylate*) 5 Mg Tablet, 5 MG PO BID for 30 Days, TAB Prov:ZENREJIEVCHANTELL Salmon 11/17/18 Tamsulosin Hcl* (Flomax*) 0.4 Mg Cap.er.24h, 0.4 MG PO HS for 30 Days, CAP Prov:CHANTELL TOVAR 11/17/18 Amoxicillin/Potassium Clav (Amox-Clav 500-125 mg Tablet) 500-125 mg Tab, 500 MG PO BID for 5 Days, TAB Prov:CHANTELL TOVAR 11/17/18 Loperamide Hcl* (Imodium*) 2 Mg Capsule, 2 MG PO .AFTER EA LOOSE BM PRN for DIARRHEA, #10 TAB Prov:JENNIFER MANRIQUE MD 07/13/18 Reported Medications Memantine* (Namenda*) 5 Mg Tablet, 5 MG PO QHS, #30 TAB 11/13/18 Quetiapine Fumarate* (Seroquel*) 100 Mg Tablet, 100 MG PO HS, #30 TAB 11/13/18 Tolterodine Tartrate* (Tolterodine Tartrate*) 2 Mg Tablet, 4 MG PO QHS, #60 TAB 11/13/18 Famotidine (Heartburn Prevention) 20 Mg Tablet, 20 MG PO BID, TAB 11/13/18 Cholecalciferol* (Vitamin D3*) 1,000 Unit Tablet, 5000 UNIT PO DAILY, TAB 11/13/18 Ferrous Sulfate* (Ferrous Sulfate*) 325 Mg Tabec, 325 MG PO BID, TAB 11/13/18 Lorazepam* (Lorazepam*) 1 Mg Tablet, 1 MG PO Q12 PRN for ANXIETY, #60 TAB 11/13/18 Folic Acid* (Folic Acid*) 1 Mg Tablet, 1 MG PO DAILY, TAB 09/11/16 Atorvastatin Calcium* (Atorvastatin Calcium*) 20 Mg Tablet, 20 MG PO QHS, #30 TAB 09/11/16 Aspirin* (Aspirin* EC) 81 Mg Tablet.dr, 81 MG PO DAILY, TAB 09/11/16 Discontinued Reported Medications Oxybutynin Chloride* (Oxybutynin Chloride*) 5 Mg/5 Ml Syrup, 5 MG PO BID, ML 11/13/18 Haloperidol* (Haldol*) 5 Mg Tab, 5 MG PO DAILY, TAB 11/13/18 Discontinued Scripts Ondansetron (Ondansetron Odt) 4 Mg Tab.rapdis, 4 MG PO Q6H PRN for NAUSEA AND/OR VOMITING, #10 TAB Prov:JENNIFER MANRIQUE MD 07/13/18 Ampicillin* (Ampicillin*) 500 Mg Cap, 500 MG PO Q8 for 5 Days, #15 CAP Prov:SHEILA LAYTON NP 08/06/18 Primary Care Provider Care Physician No Primary Pending Labs Laboratory Tests Test 11/16/18 17:26 11/16/18 20:13 11/17/18 08:10 11/17/18 11:31 Bedside 136 127 120 137 Glucose mg/dL (70-220) mg/dL (70-220) mg/dL (70-220) mg/dL (70-220) CHANTELL TOVAR November 17, 2018 12:42
[2018-11-17] MEDS ORDERED: LOSA25TA2 PO (12:46)
[2018-11-17] MEDS ORDERED: AMOX1TAB9 PO (12:46)
[2018-11-17] MEDS ORDERED: METO-448 PO (12:46)
[2018-11-17] MEDS ORDERED: AMLO-145 PO (12:46)
[2018-11-17] MEDS ORDERED: TAMS-14 PO (12:46)
--- NOTE | 2018-11-17 14:36 | CONS ---
Consult Date/Type/Reason Admit Date/Time November 14, 2018 at 08:53 Initial Consult Date Requesting Provider: DARIO DUNN MD Date/Time of Note DATE: 11/17/18 TIME: 14:33 Subjective NO acute events - BP in good range - no CP now, dispo planed now. ROS: No fever, no chills, no nausea, no vomiting, no diarrhea/constipation No recent weight changes No chest pain, no PND, no orthopnea - improved SOB No dizziness, blurred vision No thirst, no heat or cold intolerance Objective Vitals Vital Signs Date Temp Pulse Resp B/P (MAP) Pulse Ox O2 O2 Flow FiO2 Time Delivery Rate 11/17/18 59 12:00 11/17/18 97.8 20 144/64 96 Room Air 11:37 (90) Intake and Output 11/16/18 11/16/18 11/17/18 1515:00 23:00 07:00 IntakeIntake Total 1250 ml 500 ml OutputOutput Total 650 ml BalanceBalance 1250 ml -150 ml Exam General: WN/WD/NAD, AOx 3 HEENT: Unicetric/atraumatic/EOMI (follows commands) NECK: JVD elevated, no thyromegaly Lymph: no lymphadenopathy HEART: regular with no S3, II/ systolic murmur at apex, PMI L LUNGS: Coarse sounds ABD: soft, NT, ND, +BS : Intact Neuro: non focal SKIN: chronic changes EXT: trace edema Results/Medications Result Diagram: 11/16/18 0505 11/17/18 1202 Results 24 hrs Laboratory Tests Test 11/16/18 17:26 11/16/18 20:13 11/17/18 08:10 11/17/18 11:31 Bedside Glucose 136 127 120 137 Test 11/17/18 12:02 Sodium Level 139 Potassium Level 4.5 Chloride Level 104 Carbon Dioxide Level 29 Anion Gap 6 Blood Urea Nitrogen 23 H Creatinine 0.91 Est Glomerular > 60 Filtrat Rate mL/min Glucose Level 137 Calcium Level 9.3 Home Meds Active Scripts Metoprolol Tartrate* (Lopressor*) 25 Mg Tab, 25 MG PO BID for 30 Days, TAB Prov:MEZENTSEVVikyCHANTELL 11/17/18 Losartan Potassium* (Cozaar*) 25 Mg Tablet, 25 MG PO BID for 30 Days, TAB Prov:MEZENTSEVA,CHANTELL 11/17/18 Amlodipine Besylate* (Amlodipine Besylate*) 5 Mg Tablet, 5 MG PO BID for 30 Days, TAB Prov:CHANTELL TOVAR 11/17/18 Tamsulosin Hcl* (Flomax*) 0.4 Mg Cap.er.24h, 0.4 MG PO HS for 30 Days, CAP Prov:CHANTELL TOVAR 11/17/18 Amoxicillin/Potassium Clav (Amox-Clav 500-125 mg Tablet) 500-125 mg Tab, 500 MG PO BID for 5 Days, TAB Prov:CHANTELL TOVAR 11/17/18 Loperamide Hcl* (Imodium*) 2 Mg Capsule, 2 MG PO .AFTER EA LOOSE BM PRN for DIARRHEA, #10 TAB Prov:JENNIFER MANRIQUE MD 07/13/18 Ondansetron (Ondansetron Odt) 4 Mg Tab.rapdis, 4 MG PO Q6H PRN for NAUSEA AND/OR VOMITING, #10 TAB Prov:JENNIFER MANRIQUE MD 07/13/18 Reported Medications Oxybutynin Chloride* (Oxybutynin Chloride*) 5 Mg/5 Ml Syrup, 5 MG PO BID, ML 11/13/18 Memantine* (Namenda*) 5 Mg Tablet, 5 MG PO QHS, #30 TAB 11/13/18 Quetiapine Fumarate* (Seroquel*) 100 Mg Tablet, 100 MG PO HS, #30 TAB 11/13/18 Tolterodine Tartrate* (Tolterodine Tartrate*) 2 Mg Tablet, 4 MG PO QHS, #60 TAB 11/13/18 Famotidine (Heartburn Prevention) 20 Mg Tablet, 20 MG PO BID, TAB 11/13/18 Cholecalciferol* (Vitamin D3*) 1,000 Unit Tablet, 5000 UNIT PO DAILY, TAB 11/13/18 Ferrous Sulfate* (Ferrous Sulfate*) 325 Mg Tabec, 325 MG PO BID, TAB 11/13/18 Lorazepam* (Lorazepam*) 1 Mg Tablet, 1 MG PO Q12 PRN for ANXIETY, #60 TAB 11/13/18 Haloperidol* (Haldol*) 5 Mg Tab, 5 MG PO DAILY, TAB 11/13/18 Folic Acid* (Folic Acid*) 1 Mg Tablet, 1 MG PO DAILY, TAB 09/11/16 Atorvastatin Calcium* (Atorvastatin Calcium*) 20 Mg Tablet, 20 MG PO QHS, #30 TAB 09/11/16 Aspirin* (Aspirin* EC) 81 Mg Tablet.dr, 81 MG PO DAILY, TAB 09/11/16 Discontinued Scripts Ampicillin* (Ampicillin*) 500 Mg Cap, 500 MG PO Q8 for 5 Days, #15 CAP Prov:LAYTONSHEILAALBERT Larson INTERNET MANAGER 08/06/18 Medications Current Medications Hydralazine HCl (Apresoline) 10 mg Q6H PRN IV ELEVATED BLOOD PRESSURE Last administered on 11/15/18at 18:26; Admin Dose 10 MG; Start 11/12/18 at 07:30 Acetaminophen (Tylenol Tab) 650 mg Q6H PRN PO MILD PAIN(1-3)OR ELEVATED TEMP; Start 11/12/18 at 17:00 Ondansetron HCl (Zofran Inj) 4 mg Q6H PRN IV NAUSEA AND/OR VOMITING; Start 11/12/18 at 17:00 Pantoprazole (Protonix Tab) 40 mg DAILY@06 PO Last administered on 11/17/18at 05:58; Admin Dose 40 MG; Start 11/13/18 at 06:00 Aspirin (Aspirin) 81 mg DAILY PO Last administered on 11/17/18at 08:12; Admin Dose 81 MG; Start 11/13/18 at 09:00 Atorvastatin Calcium (Lipitor) 20 mg HS PO Last administered on 11/16/18at 20:12; Admin Dose 20 MG; Start 11/12/18 at 21:00 Insulin Aspart (Novolog Insulin Pen) NOVOLOG *MILD* ALGORITHM WITH MEALS BEDTIME SC Last administered on 11/16/18at 12:17; Admin Dose 1 UNIT; Start 11/12/18 at 18:00 Miscellaneous Information 1 ea NOTE XX ; Start 11/12/18 at 17:30 Glucose (Glutose) 15 gm Q15M PRN PO DECREASED GLUCOSE; Start 11/12/18 at 17:30 Glucose (Glutose) 22.5 gm Q15M PRN PO DECREASED GLUCOSE; Start 11/12/18 at 17:30 Dextrose (D50w Syringe) 25 ml Q15M PRN IV DECREASED GLUCOSE; Start 11/12/18 at 17:30 Dextrose (D50w Syringe) 50 ml Q15M PRN IV DECREASED GLUCOSE; Start 11/12/18 at 17:30 Glucagon (Glucagen) 1 mg Q15M PRN IM DECREASED GLUCOSE; Start 11/12/18 at 17:30 Glucose (Glutose) 15 gm Q15M PRN BUCCAL DECREASED GLUCOSE; Start 11/12/18 at 17:30 Amlodipine Besylate (Norvasc) 5 mg BID PO Last administered on 11/17/18at 08:11; Admin Dose 5 MG; Start 11/13/18 at 21:00 Memantine (Namenda) 5 mg QHS PO Last administered on 11/16/18at 20:11; Admin Dose 5 MG; Start 11/14/18 at 21:00 Tolterodine Tartrate (Detrol La) 4 mg QHS PO Last administered on 11/16/18at 20:10; Admin Dose 4 MG; Start 11/14/18 at 21:00 Metoprolol Tartrate (Lopressor) 25 mg BID PO Last administered on 11/17/18at 08:12; Admin Dose 25 MG; Start 11/14/18 at 21:00 Lorazepam (Ativan) 1 mg Q6H PRN IV AGITATION/ANXIETY Last administered on 11/15/18at 21:19; Admin Dose 1 MG; Start 11/15/18 at 20:30 Losartan Potassium (Cozaar) 25 mg BID PO Last administered on 11/17/18at 08:12; Admin Dose 25 MG; Start 11/16/18 at 13:30 Amoxicillin/ Clavulanate Potassium (Augmentin) 500 mg BID PO ; Start 11/17/18 at 21:00; Stop 11/22/18 at 20:59 Tamsulosin HCl (Flomax) 0.4 mg HS PO ; Start 11/17/18 at 21:00 Assessment/Plan Hospital Course (Demo Recall) 1. Positive troponin in the setting of possible syncope versus seizures without syncope. The patient may have been caused by acute coronary syndrome and if the seizures may have been the cause of the patient's positive troponin - stress test done - EF 45%, small defect - med Rx reasonable unless Class III Sx. NO intervention planned now. 2. Abnormal echocardiogram with nonspecific ST-T wave abnormalities, assess for acute coronary syndrome. NO CP now. Treated. 3. Possible syncope versus seizure - no tachy-bardy on tele now. NO new episodes now. 4. Hypertension - better, will monitor clinically. BP better overall. On therapy now. 5. Dyslipidemia. 6. Dementia- on meds. 7. Possible urinary incontinence - defer to primary team. Plan for d/c in place, meds reviewed. BOBBY ZAMORANO MD November 17, 2018 14:36
[2018-11-17] MEDS ORDERED: TAMSULOSIN (SR) 0.4 MG CAP PO SCH (21:00)
[2018-11-17] MEDS ORDERED: AMOXICILLIN/CLAV 500 MG TAB PO SCH (21:00)
== END 2018-11-17 17:55 | disposition home or self-care (01) | DRG 312 ==
LOC: E/R 20:51 → 6WM 11-12 05:17 → OBSVTOIN 11-14 08:53
PROVIDERS: ADMIT Internal Medicine Nephrology; ATTEND Internal Medicine Nephrology
PROC: C22G1ZZ Tomographic (Tomo) Nuclear Medicine Imaging of Myocardium using Technetium 99m (Tc-99m) (ICD-10-PCS; principal; 2018-11-15)
PROC: 4A02XM4 Measurement of Cardiac Total Activity, External Approach (ICD-10-PCS; 2018-11-15)
PROC: 3E033HZ Introduction of Radioactive Substance into Peripheral Vein, Percutaneous Approach (ICD-10-PCS; 2018-11-15)
PROC: 4A00X4Z Measurement of Central Nervous Electrical Activity, External Approach (ICD-10-PCS; 2018-11-15)
DX: R55 Syncope and collapse (principal); C20 Malignant neoplasm of rectum; Z85.038 Personal history of other malignant neoplasm of large intestine; I10 Essential (primary) hypertension; E78.5 Hyperlipidemia, unspecified; Z87.891 Personal history of nicotine dependence; E87.6 Hypokalemia; F41.9 Anxiety disorder, unspecified; R79.9 Abnormal finding of blood chemistry, unspecified; F03.90 Unspecified dementia, unspecified severity, without behavioral disturbance, psychotic disturbance, mood disturbance, and anxiety; E66.9 Obesity, unspecified; Z68.32 Body mass index [BMI] 32.0-32.9, adult; N40.0 Benign prostatic hyperplasia without lower urinary tract symptoms; R94.31 Abnormal electrocardiogram [ECG] [EKG]; R31.29 Other microscopic hematuria; I69.941 Monoplegia of lower limb following unspecified cerebrovascular disease affecting right dominant side; G40.909 Epilepsy, unspecified, not intractable, without status epilepticus
CPT/HCPCS: 70450; 70551; 71045; 76775; 78452; 80048; 81001; 82550; 82553; 82962; 83735; 84100; 84484; 85025; 85610; 85730; 87086; 93005; 93017; 93306; 93880; 95819; 97161; G0378; A9500; A9505; J0360; J0696; J1815; J2060; J2785